=== PATIENT | female | born 1970 | race Caucasian/White ===

== ENCOUNTER → 2018-07-21 13:28 | Outpatient (CLI) | payer SELFPAY ==
[2018-07-21 14:10] VITALS: BP 116/68; PULSE 80; RESP 16; TEMP 37.4; O2SAT 99; BMI 24.0
[2018-07-21 14:55] LABS: Absolute Neutrophil Count 5.7 X10^3/uL (2.0-7.7); Basophil# 0.05 X10^3/uL; Basophil% 0.6 % (0-1); Eosinophil# 0.11 X10^3/uL; Eosinophils% 1.4 % (0-5); Hematocrit 29.3 % (37-47); Hemoglobin 9.4 g/dl (12.0-15.0); Lymphocyte % 18.8 % (19-41); Mean Corp Hgb Conc 32.1 g/gl (32-36); Mean Corpuscular Volume 99.7 fL (81-99); Mean Platelet Vol. 8.6 fl (6.2-12.0); Monocyte% 7.5 % (0-10); Neutrophil # 5.73 X10^3/uL (2.7-7.7); Neutrophil % 71.6 % (47-70); POSITIVE COUNT NO; POSITIVE DIFFERENTIAL NO; POSITIVE MORPHOLOGY NO; Platelet Count 404 K/mm3 (150-450); RBC Distribution Width CV 12.7 % (11.6-14.6); RBC Distribution Width SD 44.2 fl (35.1-43.9); Red Blood Count 2.94 M/mm3 (4.2-5.4)
[2018-07-21 15:11] LABS: ALB/GLOB Ratio 0.6 RATIO (0.9-2.4); AST(SGOT) 11 U/L (15-37); Alanine Aminotransfer ALT/SGPT 12 U/L (13-56); Albumin, Serum 2.4 g/dL (3.2-5.0); Alkaline Phosphatase 71 U/L (45-117); Anion Gap 4 (5-15); BUN 3 mg/dL (7-18); BUN/Creat Ratio 5.3 RATIO (10-20); Calcium,Total 7.7 mg/dL (8.5-10.1); Chloride 109 mmol/L (98-107); Creatinine, Serum 0.57 mg/dL (0.55-1.02); EST Glomerular Filtration Rate 120 mL/min (>60); Est Glom Filt Rate - Afr Amer 145 mL/min (>60); Globulin 4.1 g/dL (2.2-4.2); Glucose 109 mg/dL (74-106); Protein, Total 6.5 g/dL (6.4-8.2); Sodium Level 144 mmol/L (136-145)
--- OUTSIDE RECORDS SUMMARY | 2018-09-15 18:22 | XMS RPT_ITS ---
:1970 Author Organization OHIP Support Name Relationship Address Phone NILDA MARINOT Unavailable [address] [place] [address] + [place] [address] BROWN, DINAH Unavailable Unavailable + D Unavailable Unavailable Unavailable BARKES, MARS Unavailable [address] [place] [address] + [place] [address] BROWN, DINAH Unavailable Unavailable + D Unavailable Unavailable Unavailable BARKES, MARS Unavailable [address] [place] [address] + [place] [address] BROWN, DNIAH Unavailable Unavailable + D Unavailable Unavailable Unavailable BARKES, MARS Unavailable [address] + [place] [address] BROWN, DINAH Unavailable Unavailable + D Unavailable Unavailable Unavailable BARKES, MARS Unavailable [address] + [place] [address] BROWN, DINAH Unavailable Unavailable + D Unavailable Unavailable Unavailable BARKES, MARS Unavailable [address] [facility] + [place] [address] BROWN, DINAH Unavailable Unavailable + D Unavailable Unavailable Unavailable Barkes, Mars Unavailable Unavailable + Brown, Dinah Unavailable Unavailable + Barkes, Mars Unavailable Unavailable + Brown, Dinah Unavailable Unavailable + BARKES, MARS Unavailable [address] + [place] [address] BROWN, DINAH Unavailable Unavailable + D Unavailable Unavailable Unavailable BARKES, MARS Unavailable [address] [place] [address] ST + [place] [address] BROWN, DINAH Unavailable Unavailable + D Unavailable Unavailable Unavailable BARKES, MARS Unavailable [address] [address] [address] [address] + [place] [address] BROWN, DINAH Unavailable Unavailable + D Unavailable Unavailable Unavailable BARKES, MARS Unavailable [address] + [place] [address] BROWN, DINAH Unavailable Unavailable + D Unavailable Unavailable Unavailable BARKES, MARS Unavailable [address] + [place] [address] BROWN, DINAH Unavailable Unavailable + D Unavailable Unavailable Unavailable BARKES, MARS Unavailable [address] + [place] [address] BROWN, DINAH Unavailable Unavailable + D Unavailable Unavailable Unavailable Barkes, Mars Unavailable Unavailable + Brown, Dinah Unavailable Unavailable + BARKES, MARS Unavailable [address] + [place] [address] BROWN, DINAH Unavailable Unavailable + D Unavailable Unavailable Unavailable BARKES, MARS Unavailable [address] + [place] [address] BROWN, DINAH Unavailable Unavailable + D Unavailable Unavailable Unavailable BARKES, MARS Unavailable [address] + [place] [address] BROWN, DINAH Unavailable Unavailable + D Unavailable Unavailable Unavailable Barkes, Mars Unavailable Unavailable + Brown, Dinah Unavailable Unavailable + BARKES, MARS Unavailable [address] + [place] [address] BROWN, DINAH Unavailable Unavailable + D Unavailable Unavailable Unavailable BARKES, MARS Unavailable [address] + [place] [address] BROWN, DINAH Unavailable Unavailable + D Unavailable Unavailable Unavailable BARKES, MARS Unavailable Unavailable + IRENA DINAH Unavailable Unavailable + D Unavailable Unavailable Unavailable BARKES, MARS Unavailable Unavailable + IRENA DINAH Unavailable Unavailable + D Unavailable Unavailable Unavailable BARKES, MARS Unavailable Unavailable + IRENA DINAH Unavailable Unavailable + UE Unavailable Unavailable Unavailable Barkes, Mars Unavailable Unavailable + Irena Dinah Unavailable Unavailable + Barkes, Mars Unavailable Unavailable + Irena Dinah Unavailable Unavailable + BARKES, LANCE Unavailable [address] + [place], [place] [id number] BARKES, MARS Unavailable Unavailable Unavailable NOT GIVEN Unavailable Unavailable Unavailable BARKES, LANCE Unavailable [address] + [place], [place] [id number] BARKES, MARS Unavailable Unavailable Unavailable NOT GIVEN Unavailable Unavailable Unavailable Care Team Providers Name Role Phone KATIA TAMEZ Consulting Unavailable TETYUK, PENELOPE Admitting Unavailable TETYUK, PENELOPE Attending Unavailable NICK MONTENEGRO Consulting Unavailable Jonh Esparza Attending Unavailable PROVIDER, UNKNOWN Referring Unavailable MICHELINE LANGSTON Primary Care Unavailable PROVIDER, UNKNOWN Referring Unavailable MICHELINE LANGSTON Primary Care Unavailable Jonh Esparza Attending Unavailable Jonh Esparza Attending Unavailable PROVIDER, UNKNOWN Referring Unavailable MICHELINE LANGSTON Primary Care Unavailable PROVIDER, UNKNOWN Referring Unavailable MICHELINE LANGSTON Primary Care Unavailable Jonh Esparza Attending Unavailable PROVIDER, UNKNOWN Referring Unavailable No, PCP Primary Care Unavailable Sallie Aggarwal Attending Unavailable Dena Moore Attending Unavailable PROVIDER, UNKNOWN Referring Unavailable MICHELINE LANGSTON Primary Care Unavailable Mandapat, Daya Referring Unavailable JOSE ALBERTO PENA Attending Unavailable Primay Care Physicia, No Primary Care Unavailable Mandapat, Daya Attending Unavailable Mandapat, Daya Referring Unavailable Primay Care Physicia, No Primary Care Unavailable Mandapat, Daya Attending Unavailable Mandapat, Daya Referring Unavailable Primay Care Physicia, No Primary Care Unavailable Mandapat, Daya Attending Unavailable Mandapat, Daya Referring Unavailable Primay Care Physicia, No Primary Care Unavailable Mandapat, Daya Attending Unavailable Mandapat, Daya Referring Unavailable Primay Care Physicia, No Primary Care Unavailable Mandapat, Daya Attending Unavailable Primay Care Physicia, No Primary Care Unavailable Mandapat, Daya Attending Unavailable Primay Care Physicia, No Primary Care Unavailable Mandapat, Daya Attending Unavailable Mandapat, Daya Referring Unavailable Primay Care Physicia, No Primary Care Unavailable Mandapat, Daya Attending Unavailable Mandapat, Adya Referring Unavailable Primay Care Physicia, No Primary Care Unavailable Mandapat, Daya Attending Unavailable Mandapat, Daya Referring Unavailable Primay Care Physicia, No Primary Care Unavailable Mandapat, Daya Attending Unavailable Mandapat, Daya Referring Unavailable Primay Care Physicia, No Primary Care Unavailable Mandapat, Daya Attending Unavailable Mandapat, Daya Referring Unavailable Primay Care Physicia, No Primary Care Unavailable Mandapat, Daya Attending Unavailable Mandapat, Daya Referring Unavailable Primay Care Physicia, No Primary Care Unavailable Mandapat, Daya Attending Unavailable Mandapat, Daya Referring Unavailable Primay Care Physicia, No Primary Care Unavailable Mandapat, Daya Attending Unavailable Mandapat, Daya Referring Unavailable Primay Care Physicia, No Primary Care Unavailable Mandapat, Daya Attending Unavailable Mandapat, Daya Referring Unavailable Primay Care Physicia, No Primary Care Unavailable Mandapat, Daya Attending Unavailable Mandapat, Daya Referring Unavailable Primay Care Physicia, No Primary Care Unavailable Mandapat, Daya Attending Unavailable Mandapat, Daya Referring Unavailable Primay Care Physicia, No Primary Care Unavailable Mandapat, Daya Attending Unavailable Mandapat, Daya Referring Unavailable Primay Care Physicia, No Primary Care Unavailable Mandapat, Daya Attending Unavailable Mandapat, Daya Referring Unavailable Primay Care Physicia, No Primary Care Unavailable MOR DOUGLASS DO Admitting Unavailable MOR DOUGLASS DO Attending Unavailable MOR DOUGLASS DO Primary Care Unavailable MARLO LANG MD Consulting Unavailable MARLO LANG MD Referring Unavailable PROVIDER, UNKNOWN Consulting Unavailable MARLO LANG MD Referring Unavailable MARLO LANG MD Consulting Unavailable DOROTEO TABOR Primary Care Unavailable DOROTEO TABOR Attending Unavailable DOROTEO TABOR Admitting Unavailable PROVIDER, UNKNOWN Consulting Unavailable Jan MCGOWAN Consulting Unavailable PENELOPE PERSAUD Admitting Unavailable PENELOPE PERSAUD Attending Unavailable NICK MONTENEGRO Consulting Unavailable PROBLEMS PROBLEMS DATE TYPE CONDITION / CODE ATTENDING STATUS SOURCE 07/26/2018 Admitting Encntr for f/u exam Vilma, Active [facility] aft trtmt for cond [facility] oth than malig Repository neoplm / Z09(ICD-10) 07/26/2018 Admitting [facility], Active [facility] both small and lg [facility] int w oth Repository complication / K50.818(ICD-10) 07/26/2018 Admitting Candidiasis [facility], [facility] Diagnosis and vagina / [facility] B37.3(ICD-10) Repository 07/02/2018 Admitting Peritoneal abscess / [facility] K65.1(ICD-10) [facility] Repository 07/02/2018 Admitting Crohn's disease, [facility] Diagnosis unspecified, with [facility] abscess / Repository K50.914(ICD-10) 07/02/2018 Admitting Unspecified severe [facility] protein-calorie [facility] malnutrition / Repository E43(ICD-10) 07/02/2018 Admitting Complex regional 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 I, [facility] unspecified / Repository G90.50(ICD-10) 07/02/2018 Admitting Urinary tract [facility] Diagnosis infection, site not [facility] specified / Repository N39.0(ICD-10) 07/02/2018 Admitting Personal history of [facility] nicotine dependence [facility] / Z87.891(ICD-10) Repository 07/02/2018 Admitting Fibromyalgia / Oscar, Active [facility] Diagnosis M79.7(ICD-10) [facility] Repository 07/02/2018 Admitting Hypothyroidism, Oscar, [facility] Diagnosis unspecified / [facility] E03.9(ICD-10) Repository 07/02/2018 Admitting Presence of coronary [facility] Diagnosis angioplasty implant [facility] and graft / Repository Z95.5(ICD-10) 07/02/2018 Admitting Athscl heart disease Oscar, [facility]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 Repository / I25.10(ICD-10) 07/02/2018 Admitting Body mass index Oscar, [facility] (BMI) 24.0-24.9, [facility] adult / Repository Z68.24(ICD-10) 07/02/2018 Admitting Abnormal weight loss Oscar, [facility] / R63.4(ICD-10) [facility] Repository 07/02/2018 Admitting Elevated white blood Oscar, [facility] Diagnosis cell count, [facility] unspecified / Repository D72.829(ICD-10) 07/02/2018 Admitting Hypokalemia / Oscar, [facility] E87.6(ICD-10) [facility] Repository 07/02/2018 Admitting Hypomagnesemia / [facility] Diagnosis E83.42(ICD-10) [facility] Repository 07/02/2018 Admitting Anemia, unspecified [facility] Diagnosis / D64.9(ICD-10) [facility] Repository 07/01/2018 Active Unknown / [place], Active [place] UNK(Unknown) [facility] Other [place] Repository 05/08/2018 Admitting Unknown / NA Active [facility] diagnosis UNK(Unknown) Hospital Repository 12/28/2017 Admitting Vomiting, OMLEY, 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 unspecified / DO [facility] R1110(ICD-10) Hospital Repository 12/28/2017 Principle Noninfective OMLEY, 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 gastroenteritis and [facility] colitis, unspecified Hospital / K529(ICD-10) Repository 12/28/2017 Secondary Crohn's disease, OMLEY, 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 unspecified, without [facility] complications / Hospital K5090(ICD-10) Repository 12/28/2017 Secondary Atherosclerotic OMLEY, 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[facility] [place] 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 Repository angina pectoris / I2510(ICD-10) 12/28/2017 Secondary Presence of coronary OMLEY, 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 angioplasty implant [facility] and graft / Hospital Z955(ICD-10) Repository PROCEDURES PROCEDURES No Procedure Records FoundRESULTS RESULTS CT ABDOMEN/PELVIS W/ Observed: 08/04/2018 Status: F Source: [employer] CONTRAST 1:01 PM SYSTEM REPOSITORY Patient Name: DAHLIA MARINO CT Exam Date/Time 08/04/2018 12:09:[address] Abdomen/Pelvis w/ IV Contrast (IV Onl Ordering Physician MD MEDRANO DIANA Accession Number [id number] CPT4 Codes 18827 (CT Abdomen/Pelvis w/ IV Contrast (IV Onl), Q9967 (CT ISOVUE 370MG/[id number]) Reason For Exam RLQ phlegmon vs abscess Report EXAM: CT Abdomen and pelvis INDICATION: Right lower quadrant phlegmon versus abscess. COMPARISON: 07/02/2018 TECHNIQUE: CT of the abdomen and pelvis was performed with contrast (75 mL of Isovue 370 was injected intravenously). Coronal and sagittal reformats were obtained. FINDINGS: LOWER CHEST: within normal limits. ABDOMEN: LIVER: Scattered subcentimeter hypoattenuated lesions throughout both lobes of liver, too small to characterize. BILE DUCTS: normal caliber. GALLBLADDER: Cholecystectomy. PANCREAS: within normal limits. SPLEEN: within normal limits. ADRENALS: within normal limits. KIDNEYS: within normal limits. PELVIS: REPRODUCTIVE ORGANS: Status post hysterectomy. Similar appearance of the left adnexa cystic lesion measuring 1.6 cm, unchanged from the prior exam from 07/02/2018. URETERS: within normal limits. BLADDER: within normal limits. BOWEL: Normal caliber. There is predominantly liquid contents of the large bowel, consistent with diarrhea. Postsurgical changes of appendectomy. There are anastomotic sutures in the right lower quadrant consistent with an enteroenterostomy. PERITONEUM: Again noted is a complex multiloculated rim-enhancing fluid collection, measuring approximately 4.5 x 4.4 x 4.1 cm with surrounding infiltration of the mesenteric fat. Overall appearance is not simply changed from prior exam from 07/02/2018. There are multiple prominent, but nonenlarged mesenteric lymph nodes in the right lower quadrant. Trace free fluid noted in the right paracolic gutter. No pneumoperitoneum. VESSELS: Within normal limits. LYMPH NODES: No enlarged nodes. RETROPERITONEUM: within normal limits. ABDOMINAL WALL: within normal limits. BONES: within normal limits. IMPRESSION: 1. Complex multiloculated fluid collection in the right lower quadrant with surrounding inflammatory changes and prominent right lower quadrant mesenteric lymph nodes. Overall appearance is unchanged from the prior exam from 07/02/2018. 2. Predominantly liquid content of the large bowel, consistent with diarrhea. 3. Left adnexal cystic lesion noted measuring up to 1.6 cm, unchanged from prior exams, and may represent a parapelvic cyst. Report Dictated on Final Dictated: 08/04/2018 1:01 pm Dictating Physician: MD KNOWLES KEVIN Signed Date and Time: 08/04/2018 1:10 pm Signed by: MD KNOWLES KEVIN Transcribed Date and Time: 08/04/2018 1:01 BASIC METABOLIC PANEL Collected: 08/04/2018 Status: F Source: [facility] 9:09 AM SYSTEM REPOSITORY TYPE CODE TESTS RESULT OUT OF RANGE REFERENCE UNITS LAB NA3 135-145 mmol/L Normal Sodium 144 Result Comment: NOTE: New Sodium Reference Range effective 2018 @ 10:00 LAB K3 3.5-5.1 mmol/L Normal Potassium 3.6 LAB CL3 98-107 mmol/L Normal Chloride 106 LAB CO23 22-30 mmol/L Normal Carbon Dioxide 27 LAB ANIN3 NA Anion Gap 11 LAB GLUC3 70-100 mg/dL Normal Glucose 77 LAB BUN3 7-20 mg/dL Low Urea Nitrogen 5 LAB CRET3 0.52-1.25 mg/dL Normal Creatinine 0.53 LAB GF3BR >60 mL/min eGFR > 60.0 LAB GF3WR >60 mL/min eGFR OTHER > 60.0 Result Comment: Source- MDRD equation with creatinine calibration to IDMS(NKDEP) eGFR not recommended for drug dose adjustment LAB CA3 8.4-10.4 mg/dL Normal Calcium 8.8 Performed By: #### BMP3 #### [facility] [address] [place] [id number] CBC W/DIFF, AUTOMATED Collected: 08/03/2018 Status: F Source: [place] 2:13 PM [facility] REPOSITORY TYPE CODE TESTS RESULT OUT OF RANGE REFERENCE UNITS LAB L100.1000 4.4-11.0 K/mm3 Normal WBC 8.1 LAB L100.1200 4.2-5.4 M/mm3 Low RBC 3.14 LAB L100.1300 12.0-15.0 g/dl Low HGB 9.6 LAB L100.1400 37-47 % Low HCT 29.9 LAB L100.1500 81-99 fL Normal MCV 95.2 LAB L100.1600 27.0-32.0 pg Normal MCH 30.6 LAB L100.1700 32-36 g/gl Normal MCHC 32.1 LAB L100.1810 11.6-14.6 % Normal RDW CV 13.3 LAB L100.1820 35.1-43.9 fl High RDW SD 46.1 LAB L100.1900 150-450 K/mm3 Normal PLT 371 LAB L100.2000 6.2-12.0 fl Normal MPV 8.3 LAB L100.2100 47-70 % Normal NEUT% 66.8 LAB L100.2200 19-41 % Normal LY% 23.8 LAB L100.2300 0-10 % Normal MONO% 7.3 LAB L100.2400 0-5 % Normal EO% 1.5 LAB L100.2500 0-1 % Normal BASO% 0.5 LAB L100.2550 0.0-0.9 % Normal IM GRAN % 0.100 Result Comment: IG% - Immature Granulocytes (promyelocytes, myelocytes and metamyelocytes) > 1% indicates that a LEFT SHIFT is Present. LAB L100.2620 2.0-7.7 X10 3/uL Normal Absolute Neut 5.4 LAB L100.2720 0.83-4.51 X10 3/ul Normal Absolute Lymph 1.92 Performed By: #### L100.0100 #### [facility] [address] [place], [address] COMPREHENSIVE METABOLIC Collected: 08/03/2018 Status: F Source: [facility] 2:13 PM [facility] REPOSITORY TYPE CODE TESTS RESULT OUT OF RANGE REFERENCE UNITS LAB L501.0100 74-106 mg/dL Normal GLU 101 Result Comment: Fasting Glucose result from 100 to 125 mg/dL suggests IMPAIRED HOMEOSTASIS per A.D.A. criteria. Please note revised GLUCOSE reference range effective 2017. LAB L501.1000 7-18 mg/dL Low BUN 5 LAB L501.1100 0.55-1.02 mg/dL Low CREAT,SERUM 0.47 Result Comment: The validity of the calculated GFR AND GFRAA in patients over 70 years has not been determined. Clinical correlation is essential. LAB L501.1110 >60 mL/min Normal EST GFR 150 Result Comment: Non- GFR Calc LAB L501.1115 >60 mL/min Normal EST GFR - AA 182 Result Comment: GFR Calc LAB L501.1255 ml/min Normal Estimated CRCL 125.03 LAB L501.1300 10-20 RATIO BUN/CRE Normal 10.7 LAB L501.1500 6.4-8. g/dL 2 T PROT Normal 7.0 LAB L501.1800 3.2-5. g/dL Low 0 ALB 2.6 LAB L501.1950 2.2-4. g/dL High 2 GLOB 4.4 LAB L501.2000 0.9-2. RATIO Low 4 A/G 0.6 LAB L501.2200 8.5-10 mg/dL Low .1 CA 8.2 LAB L501.4100 15-37 U/L Low AST 7 LAB L501.4305 45-117 U/L ALK P Normal 78 LAB L501.4405 13-56 U/L Low ALT 10 LAB L501.4600 0.20-1 mg/dL .00 T BILI Normal 0.20 LAB L501.5300 136-14 mmol/L High 5 NA 146 LAB L501.5600 3.5-5. mmol/L Low 1 K alert 2.7 Result Comment: Critical Result(s) Called ALEXEI at: 15:18:56 08/03/2018 by: JOMAR JACKSON LAB L501.5900 98-107 mmol/L High CL 109 LAB L501.6100 21.0-32.0 mmol/L Normal CO2 28.0 LAB L501.6200 5-15 Normal 9 GAP Performed By: #### L500.4050 #### [facility] [address] [place], [place], [address] CBC W/DIFF, AUTOMATED Collected: 07/27/2018 Status: F Source: [place] 2:06 PM [facility] REPOSITORY TYPE CODE TESTS RESULT OUT OF RANGE REFERENCE UNITS LAB L100.1000 4.4-11.0 K/mm3 Normal WBC 8.1 LAB L100.1200 4.2-5.4 M/mm3 Low RBC 3.17 LAB L100.1300 12.0-15.0 g/dl Low HGB 9.7 LAB L100.1400 37-47 % Low HCT 30.4 LAB L100.1500 81-99 fL Normal MCV 95.9 LAB L100.1600 27.0-32.0 pg Normal MCH 30.6 LAB L100.1700 32-36 g/gl Low MCHC 31.9 LAB L100.1810 11.6-14.6 % Normal RDW CV 13.1 LAB L100.1820 35.1-43.9 fl High RDW SD 46.2 LAB L100.1900 150-450 K/mm3 Normal PLT 381 LAB L100.2000 6.2-12.0 fl Normal MPV 8.2 LAB L100.2100 47-70 % Normal NEUT% 65.6 LAB L100.2200 19-41 % Normal LY% 23.4 LAB L100.2300 0-10 % Normal MONO% 8.6 LAB L100.2400 0-5 % Normal EO% 1.9 LAB L100.2500 0-1 % Normal BASO% 0.4 LAB L100.2550 0.0-0.9 % Normal IM GRAN % 0.100 Result Comment: IG% - Immature Granulocytes (promyelocytes, myelocytes and metamyelocytes) > 1% indicates that a LEFT SHIFT is Present. LAB L100.2620 2.0-7.7 X10 3/uL Normal Absolute Neut 5.3 LAB L100.2720 0.83-4.51 X10 3/ul Normal Absolute Lymph 1.89 Performed By: #### L100.0100 #### [facility] [address] [place], [place], [address] COMPREHENSIVE METABOLIC Collected: 07/27/2018 Status: F Source: [facility] 2:06 PM [facility] REPOSITORY TYPE CODE TESTS RESULT OUT OF RANGE REFERENCE UNITS LAB L501.0100 74-106 mg/dL Normal GLU 83 Result Comment: Please note revised GLUCOSE reference range effective 2017. LAB L501.1000 7-18 mg/dL Low BUN 5 LAB L501.1100 0.55-1.02 mg/dL Low CREAT,SERUM 0.50 Result Comment: The validity of the calculated GFR AND GFRAA in patients over 70 years has not been determined. Clinical correlation is essential. LAB L501.1110 >60 mL/min Normal EST GFR 138 Result Comment: Non- GFR Calc LAB L501.1115 >60 mL/min Normal EST GFR - AA 167 Result Comment: GFR Calc LAB L501.1255 ml/min Normal Estimated CRCL 117.53 LAB L501.1300 10-20 RATIO Low BUN/CRE 9.9 LAB L501.1500 6.4-8. g/dL 2 T PROT Normal 7.3 LAB L501.1800 3.2-5. g/dL Low 0 ALB 2.8 LAB L501.1950 2.2-4. g/dL High 2 GLOB 4.5 LAB L501.2000 0.9-2. RATIO Low 4 A/G 0.6 LAB L501.2200 8.5-10 mg/dL Low .1 CA 8.4 LAB L501.4100 15-37 U/L Low AST 10 LAB L501.4305 45-117 U/L ALK P Normal 79 LAB L501.4405 13-56 U/L Low ALT 11 LAB L501.4600 0.20-1 mg/dL .00 T BILI Normal 0.20 LAB L501.5300 136-14 mmol/L 5 NA Normal 144 LAB L501.5600 3.5-5. mmol/L Low 1 K 2.9 LAB L501.5900 98-107 mmol/L High CL 108 LAB L501.6100 21.0-3 mmol/L 2.0 CO2 Normal 29.0 LAB L501.6200 5-15 GAP Normal 7 Performed By: #### L500.4050 #### [facility] [address] [place], [address] CBC W/DIFF, AUTOMATED Collected: 07/21/2018 Status: F Source: [place] 2:35 PM [facility] REPOSITORY TYPE CODE TESTS RESULT OUT OF RANGE REFERENCE UNITS LAB L100.1000 4.4-11.0 K/mm3 Normal WBC 8.0 LAB L100.1200 4.2-5.4 M/mm3 Low RBC 2.94 LAB L100.1300 12.0-15.0 g/dl Low HGB 9.4 LAB L100.1400 37-47 % Low HCT 29.3 LAB L100.1500 81-99 fL High MCV 99.7 LAB L100.1600 27.0-32.0 pg Normal MCH 32.0 LAB L100.1700 32-36 g/gl Normal MCHC 32.1 LAB L100.1810 11.6-14.6 % Normal RDW CV 12.7 LAB L100.1820 35.1-43.9 fl High RDW SD 44.2 LAB L100.1900 150-450 K/mm3 Normal PLT 404 LAB L100.2000 6.2-12.0 fl Normal MPV 8.6 LAB L100.2100 47-70 % High NEUT% 71.6 LAB L100.2200 19-41 % Low LY% 18.8 LAB L100.2300 0-10 % Normal MONO% 7.5 LAB L100.2400 0-5 % Normal EO% 1.4 LAB L100.2500 0-1 % Normal BASO% 0.6 LAB L100.2550 0.0-0.9 % Normal IM GRAN % 0.100 Result Comment: IG% - Immature Granulocytes (promyelocytes, myelocytes and metamyelocytes) > 1% indicates that a LEFT SHIFT is Present. LAB L100.2620 2.0-7.7 X10 3/uL Normal Absolute Neut 5.7 LAB L100.2720 0.83-4.51 X10 3/ul Normal Absolute Lymph 1.50 Performed By: #### L100.0100 #### [facility] [address] [place], [place], [id number] COMPREHENSIVE METABOLIC Collected: 07/21/2018 Status: F Source: [facility] 2:35 PM [facility] REPOSITORY TYPE CODE TESTS RESULT OUT OF RANGE REFERENCE UNITS LAB L501.0100 74-106 mg/dL High GLU 109 Result Comment: Fasting Glucose result from 100 to 125 mg/dL suggests IMPAIRED HOMEOSTASIS per A.D.A. criteria. Please note revised GLUCOSE reference range effective 2017. LAB L501.1000 7-18 mg/dL Low BUN 3 LAB L501.1100 0.55-1.02 mg/dL Normal CREAT,SERUM 0.57 Result Comment: The validity of the calculated GFR AND GFRAA in patients over 70 years has not been determined. Clinical correlation is essential. LAB L501.1110 >60 mL/min Normal EST GFR 120 Result Comment: Non- GFR Calc LAB L501.1115 >60 mL/min Normal EST GFR - AA 145 Result Comment: GFR Calc LAB L501.1255 ml/min Normal Estimated CRCL 103.10 LAB L501.1300 10-20 RATIO Low BUN/CRE 5.3 LAB L501.1500 6.4-8. g/dL 2 T PROT Normal 6.5 LAB L501.1800 3.2-5. g/dL Low 0 ALB 2.4 LAB L501.1950 2.2-4. g/dL 2 GLOB Normal 4.1 LAB L501.2000 0.9-2. RATIO Low 4 A/G 0.6 LAB L501.2200 8.5-10 mg/dL Low .1 CA 7.7 LAB L501.4100 15-37 U/L Low AST 11 LAB L501.4305 45-117 U/L ALK P Normal 71 LAB L501.4405 13-56 U/L Low ALT 12 LAB L501.4600 0.20-1 mg/dL .00 T BILI Normal 0.20 LAB L501.5300 136-14 mmol/L 5 NA Normal 144 LAB L501.5600 3.5-5. mmol/L Low 1 K 3.0 LAB L501.5900 98-107 mmol/L High CL 109 LAB L501.6100 21.0-3 mmol/L 2.0 CO2 Normal 31.0 LAB L501.6200 5-15 Low GAP 4 Performed By: #### L500.4050 #### [facility] [address] [facility] [place], [place], [address] CR CHEST PORTABLE Observed: 07/20/2018 Status: F Source: [employer] 6:44 PM SYSTEM REPOSITORY Patient Name: DAHLIA [facility] Exam Date/Time 07/20/2018 16:55:27 EST Exam CR Chest Portable Ordering Physician DO PINON KATHRYN C Accession Number [id number] CPT4 Codes 90151 () Reason For Exam Line placement Report HISTORY: Line placement Portable AP chest at 1639 hours. FINDINGS: Left arm PICC line with tip in the region of the SVC/right atrial junction. Prior lower neck surgery. No definite infiltrates masses or pleural effusions Report Dictated on Final Dictated: 07/20/2018 6:44 pm Dictating Physician: MD PEDRAZA WILLIAM Signed Date and Time: 07/20/2018 6:45 pm Signed by: MD PEDRAZA WILLIAM Transcribed Date and Time: 07/20/2018 6:44 DISCHARGE SUMMARY Observed: 07/20/2018 Status: F Source: [employer] 1:18 PM SYSTEM REPOSITORY Attestation signed by Kashif Hernandez MD at 07/22/2018 1:47 PM Patient seen and examined 07/20/2018. See my exam & notes regarding the discharge plan on progress note attestation dated 07/20/2018 Pager: [phone] Internal Medicine: Med TeamDischarge Summary and Transition Note Dahlia Marino : 1970 ADMIT DATE: 07/17/2018 DISCHARGE DATE: 07/20/2018 PRIMARY CARE PHYSICIAN: No primary care provider on file. VISIT STATUS: Admission CODE STATUS: Full Code DISCHARGE DIAGNOSES: Active Problems: Right lower quadrant abdominal abscess (HCC) Generalized abdominal pain Abdominal visceral abscess (HCC) RLQ abdominal pain Crohn's disease of both small and large intestine with other complication (HCC) History of Crohn's disease Allergy to multiple antibiotics Resolved Problems: * No resolved hospital problems. * HOSPITAL COURSE: Dahlia Marino is a 47-year-old female with PMHx of Crohn's (bowel resections x8), hypothyroidism, FM. Presented to [facility] ED on 07/17/18 with worsening abdominal pain. Patient was admitted to [facility] ED in 07/10, discharged 07/04/18. During that admission, found to have inflammatory collection/mass in anterior RLQ concerning for abscess. Surgery was consulted and deemed medical management to be appropriate with OP surgery follow up. Pt was discharged with prednisone and abx. Patient completed abx however self discontinued prednisone after discharge stating joint problems. Patient reported she did not recall receiving paperwork for follow up but just found it in her purse, so she did not follow up with either her PCP or GI. At time of admission she reported that she has had continued waxing/waning abd pain since discharge, but that the pain became acutely worse on the evening of 07/14/18 when she felt a popping sensation in her RLQ. In Emergency department, CT was unchanged from previous admission. Patient was tachycardic 110s, febrile >103, WBC 15.3. K 2.9 which was replaced. Van/Zosyn started empirically. Blood culture was negative. Patient was admitted IR, general surgery and GI were consulted. IV antibiotics switched to Zosyn and solumedrol started. Steroids were discontinued by GI . Per IR and general surgery no surgical intervention. Patient was initially NPO, diet was advanced to general diet, tolerated well. Pain was controlled using IV Dilaudid and switched to PO Dilaudid. ID was consulted and recommended IV ertapenem for 2-3 weeks until resolution on imaging. PICC line was placed. Patient was stable and discharged in stable condition with PO Dilaudid 2mg q6 for one week. Plan is to follow up with IMC in one week, plan to order CT of abdomen at this time and assess for discontinuation of antibiotics. Patient instructed to follow up with general surgery for an appointment in two weeks. Spoke with patient, patient would like to continue to follow up with her GI doctor in [place], urged her to set up a follow up appointment soon after discharge. ID placed infusion orders for [facility] in [place] with an appointment to start tomorrow. PROCEDURES: PICC placement CONSULTANTS: Interventional Radiology General Surgery Gastrointestinal Infectious Disease DISCHARGE MEDICATIONS: Dahlia Marino Home Medication Instructions MARLYN:[id number] Printed on:07/20/18 9946 Medication Information calcium-vitamin D (OSCAL) 250-125 MG-UNIT per tablet Take 2 tablets by mouth daily ertapenem (INVANZ) infusion Infuse 1,000 mg intravenously every 24 hours To receive at outpatient infusion center HYDROmorphone (DILAUDID) 2 MG tablet Take 1 tablet by mouth every 6 hours as needed for Pain for up to 7 days.. levothyroxine (SYNTHROID) 100 MCG tablet Take 1 tablet by mouth Daily magnesium chloride (MAG DELAY) 64 MG TBEC extended release tablet Take 1 tablet by mouth daily (with breakfast) potassium chloride (KLOR-CON M) 20 MEQ extended release tablet Take 1 tablet by mouth daily vitamin B-12 (CYANOCOBALAMIN) 100 MCG tablet Take 50 mcg by mouth daily DIET: DIET GENERAL; ACTIVITY: No restriction. SIGNIFICANT DIAGNOSTIC STUDIES: CT 07/17/2018 - Abscess in the right side of the abdomen in the mesentery adjacent to the areas of ileocolic and proximal transverse colon anastomoses appears unchanged. There is not feasible to assess for fistula formation from this exam which does not include oral contrast PENDING RESULTS AT TIME OF DISCHARGE: None COMPLEXITY OF FOLLOW UP: [] Moderate Complexity: follow up within 7-14 calendar days (00157) [x] Severe Complexity: follow up within 7 calendar days (45069) FOLLOW UP TESTING, PENDING RESULTS OR REFERRALS AT TRANSITIONAL CARE VISIT: CT of abdomen after 2-3 weeks of abx [x] Yes [] No RECOMMENDED NEXT STEPS: Please follow up with Dr. Langston at the [facility] at 10am on 07/26/2018. Please follow up with your GI doctor in [place]. Please follow up with Dr. Micheline Barnard of general surgery at [phone] as soon as possible for a follow up appointment in two weeks . DISPOSITION: Home Follow up with Dr. Langston at the [facility] at 10am on 07/26/2018. INSTRUCTIONS TO MA/SW: Please call patient on day after discharge (must document patient contacted within 2 business days of discharge). FOLLOW UP QUESTIONS FOR MA/SW: 1. Did you get medications filled and taking them as instructed from discharge? 2. Are you following your discharge instructions from your hospital stay? 3. Please confirm patient is scheduled for a follow up appointment within the above time frame. TIFERON Collected: 07/20/2018 Status: F Source: [employer] 11:02 AM SYSTEM REPOSITORY TYPE CODE TESTS RESULT OUT OF REFERENCE UNITS RANGE LAB QTF Negative NA Quantiferon Negative Performed By: #### QTF #### [facility] [address] [id number] HEMOGRAM Collected: 07/20/2018 Status: F Source: [employer] 4:25 AM SYSTEM REPOSITORY TYPE CODE TESTS RESULT OUT OF RANGE REFERENCE UNITS LAB IWBC 3.6-10.7 10*3/uL WBC Normal 9.0 LAB RBC 3.80-5.20 10*6/uL Low RBC 3.03 LAB HGB 11.7-16.0 g/dL Low Hemoglobin 9.7 LAB HCT 35.0-47.0 % Low Hematocrit 29.5 LAB MCV 79.0-98.0 fL MCV Normal 97.3 LAB MCH 26.0-34.0 pg MCH Normal 32.0 LAB MCHC 32.0-36.0 % MCHC Normal 32.8 LAB RDW 11.5-14.5 % RDW Normal 13.2 LAB PLT 140-440 10*3/uL Platelet Normal 272 LAB MPV 7.4-10.4 fL MPV Normal 7.6 Performed By: #### HEMOG, BMP3M, MG3, PHOS3 #### [facility] [address] [place] [phone] BASIC METABOLIC PANEL Collected: 07/20/2018 Status: F Source: [employer] 4:25 AM SYSTEM REPOSITORY TYPE CODE TESTS RESULT OUT OF RANGE REFERENCE UNITS LAB NA3 137-145 mmol/L Sodium Normal 139 LAB K3 3.5-5.1 mmol/L Normal Potassium 3.5 LAB CL3 98-107 mmol/L High Chloride 112 LAB CO23 22-30 mmol/L Carbon Normal Dioxide 23 LAB ANIN3 NA Anion Gap 5 LAB GLUC3 70-100 mg/dL Glucose Normal 80 LAB BUN3 7-20 mg/dL Low Urea Nitrogen 4 LAB CRET3 0.52-1.25 mg/dL Low Creatinine 0.51 LAB GF3BR >60 mL/min eGFR > 60.0 LAB GF3WR >60 mL/min eGFR OTHER > 60.0 Result Comment: Source- MDRD equation with creatinine calibration to IDMS(NKDEP) eGFR not recommended for drug dose adjustment LAB CA3 8.4-10.4 mg/dL Low Calcium 7.8 Performed By: #### HEMOG, BMP3M, MG3, PHOS3 #### [facility] [address] [place] [address] MAGNESIUM Collected: 07/20/2018 Status: F Source: [employer] 4:25 AM SYSTEM REPOSITORY TYPE CODE TESTS RESULT OUT OF REFERENCE UNITS RANGE LAB MG3 1.6-2.3 mg/dL Low Magnesium 1.5 Performed By: #### HEMOG, BMP3M, MG3, PHOS3 #### [employer] [address] PHOSPHORUS Collected: 07/20/2018 Status: F Source: [employer] 4:25 AM SYSTEM REPOSITORY TYPE CODE TESTS RESULT OUT OF RANGE REFERENCE UNITS LAB PHOS3 2.5-4.5 mg/dL Normal Phosphorus 4.3 Performed By: #### HEMOG, BMP3M, MG3, PHOS3 #### [facility] [address] [place] [address] Observed: 07/19/2018 Status: F Source: [employer] CLOSTRIDIUM DIFFICILE 10:53 PM SYSTEM REPOSITORY PCR Order Comment: Specimen Source Comment:Stool Clostridium difficile by PCR --> Status: F NEGATIVE Methodology - Real Time PCR (Cepheid) Clinical judgement must be used when interpreting results. Positive results may reflect colonization. Indeterminate results suggest a new specimen be submitted. Methodology - Real Time PCR (Cepheid) Clinical judgement must be used when interpreting results. Positive results may reflect colonization. Indeterminate results suggest a new specimen be submitted. Performed By: #### CDPCR #### [employer] [address] HEMOGRAM Collected: 07/19/2018 Status: F Source: [employer] 5:29 AM SYSTEM REPOSITORY TYPE CODE TESTS RESULT OUT OF RANGE REFERENCE UNITS LAB IWBC 3.6-10.7 10*3/uL WBC Normal 7.9 LAB RBC 3.80-5.20 10*6/uL Low RBC 2.82 LAB HGB 11.7-16.0 g/dL Low Hemoglobin 9.1 LAB HCT 35.0-47.0 % Low Hematocrit 26.7 LAB MCV 79.0-98.0 fL MCV Normal 94.8 LAB MCH 26.0-34.0 pg MCH Normal 32.1 LAB MCHC 32.0-36.0 % MCHC Normal 33.9 LAB RDW 11.5-14.5 % RDW Normal 13.1 LAB PLT 140-440 10*3/uL Platelet Normal 361 LAB MPV 7.4-10.4 fL Low MPV 7.2 Performed By: #### HEMOG, BMP3M, MG3, PHOS3 #### [facility] [address] [place] [phone] BASIC METABOLIC PANEL Collected: 07/19/2018 Status: F Source: [employer] 5:29 AM SYSTEM REPOSITORY TYPE CODE TESTS RESULT OUT OF RANGE REFERENCE UNITS LAB NA3 137-145 mmol/L Sodium Normal 141 LAB K3 3.5-5.1 mmol/L Low Potassium 3.3 LAB CL3 98-107 mmol/L High Chloride 111 LAB CO23 22-30 mmol/L Carbon Normal Dioxide 24 LAB ANIN3 NA Anion Gap 5 LAB GLUC3 70-100 mg/dL Glucose Normal 93 LAB BUN3 7-20 mg/dL Low Urea Nitrogen 6 LAB CRET3 0.52-1.25 mg/dL Normal Creatinine 0.55 LAB GF3BR >60 mL/min eGFR > 60.0 LAB GF3WR >60 mL/min eGFR OTHER > 60.0 Result Comment: Source- MDRD equation with creatinine calibration to IDMS(NKDEP) eGFR not recommended for drug dose adjustment LAB CA3 8.4-10.4 mg/dL Low Calcium 7.7 Performed By: #### HEMOG, BMP3M, MG3, PHOS3 #### [facility] [address] [place] [phone] MAGNESIUM Collected: 07/19/2018 Status: F Source: [employer] 5:29 AM SYSTEM REPOSITORY TYPE CODE TESTS RESULT OUT OF RANGE REFERENCE UNITS LAB MG3 1.6-2.3 mg/dL Normal Magnesium 1.6 Performed By: #### HEMOG, BMP3M, MG3, PHOS3 #### [facility] [address] [phone] PHOSPHORUS Collected: 07/19/2018 Status: F Source: [employer] 5:29 AM SYSTEM REPOSITORY TYPE CODE TESTS RESULT OUT OF RANGE REFERENCE UNITS LAB PHOS3 2.5-4.5 mg/dL Normal Phosphorus 3.4 Performed By: #### HEMOG, BMP3M, MG3, PHOS3 #### [facility] [employer] [address] [phone] HEMOGRAM Collected: 07/18/2018 Status: F Source: [employer] 5:02 AM SYSTEM REPOSITORY TYPE CODE TESTS RESULT OUT OF RANGE REFERENCE UNITS LAB IWBC 3.6-10.7 10*3/uL WBC Normal 10.0 LAB RBC 3.80-5.20 10*6/uL Low RBC 3.13 LAB HGB 11.7-16.0 g/dL Low Hemoglobin 10.1 LAB HCT 35.0-47.0 % Low Hematocrit 29.9 LAB MCV 79.0-98.0 fL MCV Normal 95.4 LAB MCH 26.0-34.0 pg MCH Normal 32.3 LAB MCHC 32.0-36.0 % MCHC Normal 33.9 LAB RDW 11.5-14.5 % RDW Normal 13.0 LAB PLT 140-440 10*3/uL Platelet Normal 413 LAB MPV 7.4-10.4 fL MPV Normal 7.4 Performed By: #### HEMOG, BMP3M, MG3, PHOS3 #### [address] [phone] BASIC METABOLIC PANEL Collected: 07/18/2018 Status: F Source: [employer] 5:02 AM SYSTEM REPOSITORY TYPE CODE TESTS RESULT OUT OF RANGE REFERENCE UNITS LAB NA3 137-145 mmol/L Sodium Normal 143 LAB K3 3.5-5.1 mmol/L Normal Potassium 3.5 LAB CL3 98-107 mmol/L High Chloride 112 LAB CO23 22-30 mmol/L Carbon Normal Dioxide 23 LAB ANIN3 NA Anion Gap 8 LAB GLUC3 70-100 mg/dL Glucose Normal 90 LAB BUN3 7-20 mg/dL Low Urea Nitrogen 5 LAB CRET3 0.52-1.25 mg/dL Normal Creatinine 0.52 LAB GF3BR >60 mL/min eGFR > 60.0 LAB GF3WR >60 mL/min eGFR OTHER > 60.0 Result Comment: Source- MDRD equation with creatinine calibration to IDMS(NKDEP) eGFR not recommended for drug dose adjustment LAB CA3 8.4-10.4 mg/dL Low Calcium 8.1 Performed By: #### HEMOG, BMP3M, MG3, PHOS3 #### [facility] [address] [place] [phone] MAGNESIUM Collected: 07/18/2018 Status: F Source: [employer] 5:02 AM SYSTEM REPOSITORY TYPE CODE TESTS RESULT OUT OF RANGE REFERENCE UNITS LAB MG3 1.6-2.3 mg/dL Normal Magnesium 1.6 Performed By: #### HEMOG, BMP3M, MG3, PHOS3 #### [facility] [address] [place] [phone] PHOSPHORUS Collected: 07/18/2018 Status: F Source: [employer] 5:02 AM SYSTEM REPOSITORY TYPE CODE TESTS RESULT OUT OF RANGE REFERENCE UNITS LAB PHOS3 2.5-4.5 mg/dL Normal Phosphorus 3.5 Performed By: #### HEMOG, BMP3M, MG3, PHOS3 #### [facility] [address] [place] [phone] BASIC METABOLIC PANEL Collected: 07/17/2018 Status: F Source: [employer] 2:00 PM SYSTEM REPOSITORY TYPE CODE TESTS RESULT OUT OF RANGE REFERENCE UNITS LAB NA3 137-145 mmol/L Sodium Normal 141 LAB K3 3.5-5.1 mmol/L Normal Potassium 3.6 LAB CL3 98-107 mmol/L High Chloride 112 LAB CO23 22-30 mmol/L Low Carbon Dioxide 21 LAB ANIN3 NA Anion Gap 7 LAB GLUC3 70-100 mg/dL High Glucose 107 LAB BUN3 7-20 mg/dL Low Urea Nitrogen 4 LAB CRET3 0.52-1.25 mg/dL Normal Creatinine 0.58 LAB GF3BR >60 mL/min eGFR > 60.0 LAB GF3WR >60 mL/min eGFR OTHER > 60.0 Result Comment: Source- MDRD equation with creatinine calibration to IDMS(NKDEP) eGFR not recommended for drug dose adjustment LAB CA3 8.4-10.4 mg/dL Low Calcium 7.5 Performed By: #### BMP3 #### [facility] [address] [place], [place] LACTIC ACID Collected: 07/17/2018 Status: F Source: [employer] 11:25 AM SYSTEM REPOSITORY TYPE CODE TESTS RESULT OUT OF REFERENCE UNITS RANGE LAB LACT3 0.7-2.0 mmol/L Low Lactic Acid < 0.5 Performed By: #### LACT3 #### [facility] [place], [place] Observed: 07/17/2018 Status: F Source: [employer] CULTURE URINE 8:28 AM SYSTEM REPOSITORY Order Comment: Specimen Source Comment:Urine, clean catch CULTURE URINE --> Status: F Normal urogenital elham present. Performed By: #### C/UR #### [facility] [address] [place] [address] CT ABDOMEN/PELVIS W/ Observed: 07/17/2018 Status: F Source: [employer] CONTRAST 5:09 AM SYSTEM REPOSITORY Patient Name: DAHLIA MARINO CT Exam Date/Time 07/17/2018 05:32:[address] Abdomen/Pelvis w/ IV Contrast (IV Onl Ordering Physician MD JAMIR, IRENE Gray Accession Number [id number] CPT4 Codes 38383 (CT Abdomen/Pelvis w/ IV Contrast (IV Onl), Q9967 (CT ISOVUE 370MG/[id number]) Reason For Exam recent abscess due to crohns. finished abx. worsening pain, fever Report Clinical indication: Recent abscess due to Crohn's. Finished antibiotics. Worsening pain and fever. Comparison: 07/02/2018 Contrast: 75 mL Isovue-370 intravenously. No oral contrast was administered. Radiation dose: DLP 364 mGycm Imaging was performed from dome of the diaphragm through ischial tuberosities with axial, coronal and sagittal images reconstructed. Images of the lung bases show no pulmonary infiltrates or pleural effusions. The liver, spleen, pancreas, adrenal glands and kidneys contain no focal masses. Gallbladder appears surgically absent. Common duct measures about 1 cm diameter and appears unchanged. Anastomotic luz are noted in proximal transverse colon and at ileocolic anastomosis. In the mesentery in the vicinity of these two anastomoses there is an inflammatory mass of about 4 - 4.5 cm diameter which has a similar size and appearance to the abscess detected on the previous study. The lack of oral contrast makes evaluation for fistula formation not feasible on this exam. No pneumoperitoneum or ascites is identified. There are no additional areas of mesenteric inflammation. Distal colon is mildly distended with fluid and fecal content. Small bowel loops are nondilated. The general pattern is nonobstructive. Aorta and vena cava are normal in size. No retroperitoneal adenopathy or mass is noted. No free fluid is noted in the pelvis. No pelvic adenopathy is identified. Uterus appears surgically absent. No gross mass is identified within the urinary bladder. No acute interval osseous changes are identified. IMPRESSION: Abscess in the right side of the abdomen in the mesentery adjacent to the areas of ileocolic and proximal transverse colon anastomoses appears unchanged. There is not feasible to assess for fistula formation from this exam which does not include oral contrast. Report Dictated on Workstation: [id number] Final Dictated: 07/17/2018 5:09 am Dictating Physician: MD VENCES DIANE Signed Date and Time: 07/17/2018 5:16 am Signed by: MD VENCES DIANE Transcribed Date and Time: 07/17/2018 5:09 Observed: 07/17/2018 Status: F Source: [employer] CULTURE BLOOD 4:57 AM SYSTEM REPOSITORY Order Comment: Specimen Source Comment:Blood CULTURE BLOOD --> Status: F No growth at 5 days. Performed By: #### C/BLD #### [facility] [address] [place] [phone] Observed: 07/17/2018 Status: F Source: [employer] CULTURE BLOOD (TWO) 4:01 AM SYSTEM REPOSITORY Order Comment: Specimen Source Comment:Blood CULTURE BLOOD (Two) --> Status: F No growth at 5 days. Performed By: #### C/BLT #### [facility] [address] [place] [phone] HEMOGRAM W/ AUTODIFF Collected: 07/17/2018 Status: F Source: [employer] 4:00 AM SYSTEM REPOSITORY TYPE CODE TESTS RESULT OUT OF REFERENCE UNITS RANGE LAB IWBC 3.6-10.7 10*3/uL WBC High 15.3 LAB RBC 3.80-5.20 10*6/uL Low RBC 3.13 LAB HGB 11.7-16.0 g/dL Low Hemoglobin 10.0 LAB HCT 35.0-47.0 % Low Hematocrit 29.6 LAB MCV 79.0-98.0 fL MCV Normal 94.6 LAB MCH 26.0-34.0 pg MCH Normal 32.0 LAB MCHC 32.0-36.0 % MCHC Normal 33.8 LAB RDW 11.5-14.5 % RDW Normal 13.1 LAB PLT 140-440 10*3/uL Platelet Normal 415 LAB MPV 7.4-10.4 fL Low MPV 7.1 LAB GRAN% 40.0-80.0 % Granulocytes High 82.2 LAB LYMP% 20.0-40.0 % Low Lymphocytes 9.1 LAB MONO% 2.0-10.0 % Monocytes Normal 7.9 LAB EOS% 1.0-6.0 % Low Eosinophils 0.3 LAB BAS% 0.0-2.0 % Basophils Normal 0.5 LAB ANC 1.8-7.0 10*3/uL Abs High Neutrophile Cnt 12.6 LAB ALC 1.0-4.3 10*3/uL Abs Lymph Cnt Normal 1.4 LAB AMC 0.0-0.8 10*3/uL Abs Monocyte High Cnt 1.2 LAB AEC 0.0-0.5 10*3/uL Abs Eosin Cnt Normal 0.0 LAB ABC 0.0-0.2 10*3/uL Abs Baso Cnt Normal 0.1 Performed By: #### HEMDF, LACT3, LIPA4, LFT3, BMP3, CRP2, ESR, PCAL #### [facility] [address] [place] [phone] LACTIC ACID Collected: 07/17/2018 Status: F Source: [employer] 4:00 AM SYSTEM REPOSITORY TYPE CODE TESTS RESULT OUT OF RANGE REFERENCE UNITS LAB LACT3 0.7-2.0 mmol/L Normal Lactic Acid 1.2 Performed By: #### HEMDF, LACT3, LIPA4, LFT3, BMP3, CRP2, ESR, PCAL #### [facility] [address] [place] [phone] LIPASE Collected: 07/17/2018 Status: F Source: [employer] 4:00 AM SYSTEM REPOSITORY TYPE CODE TESTS RESULT OUT OF RANGE REFERENCE UNITS LAB LIPA4 23-300 U/L Normal Lipase 38 Performed By: #### HEMDF, LACT3, LIPA4, LFT3, BMP3, CRP2, ESR, PCAL #### [facility] [address] [place] [phone] HEPATIC FUNCTION Collected: 07/17/2018 Status: F Source: [employer] 4:00 AM SYSTEM REPOSITORY TYPE CODE TESTS RESULT OUT OF RANGE REFERENCE UNITS LAB ALB3 3.5-5.0 g/dL Low Albumin, Serum 3.4 LAB TP3 6.3-8.2 g/dL Total Normal Protein 6.6 LAB BILT3 0.2-1.3 mg/dL Normal Bilirubin,Total 0.2 LAB BILD3 0.0-0.3 mg/dL Normal Bilirubin,Direct 0.0 LAB ALKP3 38-126 U/L Alkaline Normal Phosphatase 83 LAB ALT3 13-69 U/L ALT (SGPT) Normal 27 LAB AST3 15-46 U/L Low AST (SGOT) 11 Performed By: #### HEMDF, LACT3, LIPA4, LFT3, BMP3, CRP2, ESR, PCAL #### [facility] [address] [place] [phone] BASIC METABOLIC PANEL Collected: 07/17/2018 Status: F Source: [employer] 4:00 AM SYSTEM REPOSITORY TYPE CODE TESTS RESULT OUT OF RANGE REFERENCE UNITS LAB NA3 137-145 mmol/L Low Sodium 135 LAB K3 3.5-5.1 mmol/L Low Potassium 2.9 LAB CL3 98-107 mmol/L Chloride Normal 103 LAB CO23 22-30 mmol/L Carbon Normal Dioxide 23 LAB ANIN3 NA Anion Gap 8 LAB GLUC3 70-100 mg/dL Glucose Normal 97 LAB BUN3 7-20 mg/dL Low Urea Nitrogen 5 LAB CRET3 0.52-1.25 mg/dL Normal Creatinine 0.63 LAB GF3BR >60 mL/min eGFR > 60.0 LAB GF3WR >60 mL/min eGFR OTHER > 60.0 Result Comment: Source- MDRD equation with creatinine calibration to IDMS(NKDEP) eGFR not recommended for drug dose adjustment LAB CA3 8.4-10.4 mg/dL Low Calcium 8.1 Performed By: #### HEMDF, LACT3, LIPA4, LFT3, BMP3, CRP2, ESR, PCAL #### [facility] [address] [place] [address] C-REACTIVE PROTEIN Collected: 07/17/2018 Status: F Source: [employer] 4:00 AM SYSTEM REPOSITORY TYPE CODE TESTS RESULT OUT OF REFERENCE UNITS RANGE LAB 2CRP 0.0-6.0 mg/L High C-Reactive 11.6 Protein Result Comment: . Performed By: #### HEMDF, LACT3, LIPA4, LFT3, BMP3, CRP2, ESR, PCAL #### [facility] [address] [place] [address] SED RATE Collected: 07/17/2018 Status: F Source: [employer] 4:00 AM SYSTEM REPOSITORY TYPE CODE TESTS RESULT OUT OF RANGE REFERENCE UNITS LAB ESR 0-20 mm/h High Sed Rate 27 Performed By: #### HEMDF, LACT3, LIPA4, LFT3, BMP3, CRP2, ESR, PCAL #### [facility] [address] [place] [address] PROCALCITONIN Collected: 07/17/2018 Status: F Source: [employer] 4:00 AM SYSTEM REPOSITORY TYPE CODE TESTS RESULT OUT OF REFERENCE UNITS RANGE LAB PRO <0.10 ng/mL Procalcitonin Normal < 0.10 LAB INT3 NA Interpretation See Below Result Comment: PCT <0.50 = Low risk of severe sepsis and/or septic shock. PCT >2.00 = High risk of severe sepsis and/or septic shock. Performed By: #### HEMDF, LACT3, LIPA4, LFT3, BMP3, CRP2, ESR, PCAL #### [facility] [address] [place] [address] ED PROVIDER NOTE Observed: 07/17/2018 Status: F Source: [employer] 2:30 AM SYSTEM REPOSITORY [facility] EMERGENCY DEPT eMERGENCY dEPARTMENT eNCOUnter Pt Name: Dahlia Marino Birthdate 1970 Date of evaluation: 07/17/2018 Provider: Irene Marlow MD Chief Complaint: No chief complaint on file. [place]: Dahlia Marino is a 48 y.o. female that presents complaining of abdominal pain. Patient has a complicated history of Crohn's disease with double abscesses, liver resection, small bowel resections. Patient states that she was admitted a couple weeks ago due to a flare of Crohn's involving an abscess. She was taken off of her Humira was on antibiotics in the hospital. She is from [place] but was referred here because the hospital close to their house does not have any surgeons at specialized in her complex history. Patient was given antibiotics. She states she was doing well and took her last dose yesterday. Patient states around 7 PM she felt a popping sensation in her lower abdomen since then has been having severe pain all over the abdomen but worse on the RIGHT side. She states she took her oral Dilaudid and got no relief at all. She has been dry heaving since then. She had a temperature of 101 at home. Does report having vaginal discharge again for which she is being treated for an yeast infection. ROS: General: Has fevers. No weakness. Eyes: No eye discharge. ENT: No sore throat. No nasal congestion. Cardiovascular: No chest pain. No palpitations. Respiratory: No shortness of breath. No cough. Gastrointestinal: Has abdominal pain. Has vomiting. Genitourinary: No dysuria. No hematuria. Has vaginal discharge Musculoskeletal: No muscle pain. No joint pain. Skin: No rash. No abrasions. Neurologic: No headache. No extremity numbness. Psychiatric: No anxiety Past Medical History: Diagnosis Date ? Crohn's colitis (HCC) ? Fibromyalgia ? Hypothyroid ? Liver abscess ? RSD (reflex sympathetic dystrophy) Past Surgical History: Procedure Laterality Date ? APPENDECTOMY ? CORONARY ANGIOPLASTY WITH STENT PLACEMENT ? HYSTERECTOMY ? SMALL INTESTINE SURGERY x8 from Crohns ? THYROIDECTOMY Family History Problem Relation Age of Onset ? Endometrial Cancer Mother ? Crohn's Disease Sister Social History Social History ? Marital status: Unknown Spouse name: N/A ? Number of children: N/A ? 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 Smoking status: Former Smoker Years: 20.00 Types: Cigarettes ? Smokeless tobacco: Current User ? Alcohol use No ? Drug use: No ? Sexual activity: Not on file Other Topics Concern ? Not on file Social History Narrative ? No narrative on file Current Facility-Administered Medications Medication Dose Route Frequency Provider Last Rate Last Dose ? HYDROmorphone (DILAUDID) injection 1 mg 1 mg Intravenous Q15 Min PRN Irene Marlow MD ? ondansetron (ZOFRAN) injection 4 mg 4 mg Intravenous Once Irene Marlow MD ? 0.9 % sodium chloride bolus 1,000 mL Intravenous Once Irene Marlow MD Current Outpatient Prescriptions Medication Sig Dispense Refill ? vitamin B-12 (CYANOCOBALAMIN) 100 MCG tablet Take 50 mcg by mouth daily ? calcium-vitamin D (OSCAL) 250-125 MG-UNIT per tablet Take 2 tablets by mouth daily ? magnesium chloride (MAG DELAY) 64 MG TBEC extended release tablet Take 1 tablet by mouth daily (with breakfast) ? potassium chloride (KLOR-CON M) 20 MEQ extended release tablet Take 1 tablet by mouth daily 60 tablet 3 ? levothyroxine (SYNTHROID) 100 MCG tablet Take 1 tablet by mouth Daily 30 tablet 3 ? predniSONE (DELTASONE) 20 MG tablet Take 2 tablets by mouth daily 60 tablet 0 ? adalimumab (HUMIRA) 40 MG/0.8ML injection Inject 40 mg into the skin once Allergies Allergen Reactions ? Doxycycline ? Erythromycin ? Flagyl [Metronidazole] Nursing Notes Reviewed Physical Exam: There were no vitals taken for this visit. My pulse ox interpretation is ? normal General: Patient is tearful and shivering, seems quite uncomfortable. Psychiatric: Appropriate goal oriented speech. Judgement intact. Eyes: No scleral icterus Ears, nose, mouth and throat: Moist oral mucosa. Neck: Trachea midline. Cardiovascular: Tachycardic rate and regular rhythm, no murmurs. Respiratory: Clear to auscultation bilaterally. No wheezes, crackles. Abdominal: Non-distended. Tender to palpation throughout the abdomen. Back: No CVA tenderness to palpation Skin: Very warm to touch. Dry. No rashes Musculoskeletal: No obvious deformities. No edema. Neurological: Alert and oriented x3. Moving all four extremities I have reviewed and interpreted all of the currently available lab results from this visit (if applicable): No results found for this visit on 07/17/18. Radiographs (if obtained): CT Abdomen Pelvis W Contrast (Results Pending) EKG (if obtained): (All EKG's are interpreted by myself in the absence of a hide tanner) none Chart review shows recent radiographs: Ct Abdomen Pelvis W Contrast Result Date: 07/02/2018 Patient Name: DAHLIA MARINO ---CT--- Exam Date/Time 07/02/2018 07:47:[address] Abdomen/Pelvis w/ IV Contrast (IV Onl Ordering Physician MD IVIS, MPH, MICHELINE Accession Number [id number] CPT4 Codes 73745 (CT Abdomen/Pelvis w/ IV Contrast (IV Onl), Q9967 (CT ISOVUE 370MG/ML&[id number]&ML&1) Reason For Exam Crohns flare, known abscess in RUQ, gas in urine, vaginal discharge, concern for fistula Report CT ABDOMEN AND PELVIS WITH CONTRAST Indication: This is a 47-year-old inpatient who presents with a known right upper quadrant abscess with gas in urine and vaginal discharge with concern for a possible fistula based on clinical findings. The patient has a fever and generalized abdominal pain. The patient has a history of Crohn's. Surgical history includes hysterectomy, appendectomy, and prior bowel partial resection. Scan Parameters: Multiple axial 3mm images were obtained of the abdomen and pelvis following oral contrast with dynamic intravenous infusion of 75 mL of Isovue 370 mg contrast media. Coronal and sagittal reconstructions were reviewed as well. Comparison: No comparison images are provided FINDINGS: Lung base atelectasis is present with tiny bilateral pleural effusions. The osseous structures are intact. The aorta contour is unremarkable. Mild atherosclerotic changes are present. Soft and hard plaque is noted along the distal intra-abdominal aorta. No aneurysmal dilatation. The liver contour is smooth. Small hepatic lesions of decreased attenuation are present, some of which are too small to characterize, possibly representing cysts. The gallbladder is not visualized. The common bile duct is prominent. The pancreas appears unremarkable. The spleen is unremarkable. The adrenal glands are unremarkable. The kidneys symmetrically enhance without hydronephrosis. There is no obstructing ureteral calculus. The bladder contour is unremarkable. Intraluminal contrast is present within the bladder with no air-fluid level and no intraluminal air. On these images a fistula tract is not identified from the bladder. Intraluminal contrast is present throughout the colon and into the distal small bowel without evidence for bowel obstruction. The contrast is present to the level of the rectum. No extraluminal contrast appreciated. Postsurgical sutures are present along the transverse colon in the right mid quadrant. At the anastomosis site there is stranding within the mesentery with a mixed fluid collection compatible with the patient's known abscess measuring 5.0 cm (transverse) by 4.0 cm (sagittal). There is stranding and edema throughout the mesentery. Reactive changes are present in the adjacent bowel loops inferior to this site with wall thickening and poor distention. Reactive lymph nodes are also noted. Per report, the appendix has been surgically removed. The uterus has been surgically removed. Fluid is noted in the pelvic cul-de-sac. IMPRESSION: Findings are compatible with an abscess in the right mid quadrant extending from postsurgical sutures which appear to be at the level of the transverse colon. Loops of bowel inferior to this site demonstrate reactive changes with bowel wall thickening with stranding in the mesentery and reactive lymph nodes. The bladder contour is smooth. Intraluminal contrast is present without locules of air and without an air-fluid level. On imaging, a discrete fistula tract is not identified however this does not exclude a fistula given the clinical presentation. Bilateral atelectasis with tiny pleural effusions. Hysterectomy. Appendectomy. Cholecystectomy. Report Dictated on --- Final --- Dictated: 07/02/2018 8:06 am Dictating Physician: MD CASSIDY JENNIFER R Signed Date and Time: 07/02/2018 8:22 am Signed by: MD CASSIDY JENNIFER R Transcribed Date and Time: 07/02/2018 8:06 MDM: Patient seems very warm and quite uncomfortable. She recently had an abscess. I do think she is another CT scan to evaluate further if she has some other complication. She is tender throughout the abdomen. IV, labwork was obtained. Patient was given IV fluids and pain medication. Patient's temp here was 103. Heart rate was 116. I did start the patient empirically on vancomycin and Zosyn. Patient's entire workup is pending. Signed out to Dr. Mercedes. Clinical Impression: 1. Generalized abdominal pain 2. History of Crohn's disease Disposition referral (if applicable): No follow-up provider specified. Disposition medications (if applicable): New Prescriptions No medications on file Comment: Please note this report has been produced using speech recognition software and may contain errors related to that system including errors in grammar, punctuation, and spelling, as well as words and phrases that may be inappropriate. If there are any questions or concerns please feel free to contact the dictating provider for clarification. Irene Marlow MD MD Irene Espinal MD 07/17/18 0421 ED PROVIDER NOTE Observed: 07/17/2018 Status: F Source: [employer] 2:30 AM SYSTEM REPOSITORY Emergency Department Encounter Location: [facility]PT Patient: Dahlia Marino : 1970 Date of evaluation: 07/17/2018 ED Provider: Bon Mercedes MD Dahlia Marino was checked out to me by Dr. Marlow. Please see his/her initial documentation for details of the patient's initial ED presentation, physical exam and completed studies. I have reviewed and interpreted all of the currently available lab results and diagnostics from this visit: Results for orders placed or performed during the hospital encounter of 07/17/18 Hemogram (CBC) w/Auto Diff Result Value Ref Range WBC 15.3 (H) 3.6 - 10.7 10*3/uL RBC 3.13 (L) 3.80 - 5.20 10*6/uL Hemoglobin 10.0 (L) 11.7 - 16.0 g/dL Hematocrit 29.6 (L) 35.0 - 47.0 % MCV 94.6 79.0 - 98.0 fL MCH 32.0 26.0 - 34.0 pg MCHC 33.8 32.0 - 36.0 % RDW 13.1 11.5 - 14.5 % Platelets 415 140 - 440 10*3/uL MPV 7.1 (L) 7.4 - 10.4 fL Granulocytes % 82.2 (H) 40.0 - 80.0 % Lymphocyte % 9.1 (L) 20.0 - 40.0 % Monocytes 7.9 2.0 - 10.0 % Eosinophils 0.3 (L) 1.0 - 6.0 % Basophils 0.5 0.0 - 2.0 % Absolute Neut # 12.6 (H) 1.8 - 7.0 10*3/uL Absolute Lymph # 1.4 1.0 - 4.3 10*3/uL Absolute Gulf # 1.2 (H) 0.0 - 0.8 10*3/uL Absolute Eos # 0.0 0.0 - 0.5 10*3/uL Absolute Baso # 0.1 0.0 - 0.2 10*3/uL Lipase Result Value Ref Range Lipase 38 23 - 300 U/L Hepatic Function Panel Result Value Ref Range Albumin,Serum 3.4 (L) 3.5 - 5.0 g/dL Total Protein 6.6 6.3 - 8.2 g/dL Total Bilirubin 0.2 0.2 - 1.3 mg/dL Bilirubin, Direct 0.0 0.0 - 0.3 mg/dL Alkaline Phosphatase 83 38 - 126 U/L ALT 27 13 - 69 U/L AST 11 (L) 15 - 46 U/L Lactic Acid, Plasma Result Value Ref Range Lactic Acid 1.2 0.7 - 2.0 mmol/L Basic Metabolic Panel Result Value Ref Range Sodium 135 (L) 137 - 145 mmol/L Potassium 2.9 (L) 3.5 - 5.1 mmol/L Chloride 103 98 - 107 mmol/L CO2 23 22 - 30 mmol/L Anion Gap 8 NA Glucose 97 70 - 100 mg/dL BUN 5 (L) 7 - 20 mg/dL CREATININE 0.63 0.52 - 1.25 mg/dL eGFR >60.0 >60 mL/min EGFR IF NonAfrican Tanzanian >60.0 >60 mL/min Calcium 8.1 (L) 8.4 - 10.4 mg/dL Sedimentation Rate Result Value Ref Range Sed Rate 27 (H) 0 - 20 mm/h C-Reactive Protein Result Value Ref Range CRP 11.6 (H) 0.0 - 6.0 mg/L Ct Abdomen Pelvis W Contrast Result Date: 07/17/2018 Patient Name: DAHLIA MARINO ---CT--- Exam Date/Time 07/17/2018 05:32:[address] Abdomen/Pelvis w/ IV Contrast (IV Onl Ordering Physician MD JAMIR, IRENE Gray Accession Number [id number] CPT4 Codes 92044 (CT Abdomen/Pelvis w/ IV Contrast (IV Onl), Q9967 (CT ISOVUE 370MG/ML&[id number]&ML&1) Reason For Exam recent abscess due to crohns. finished abx. worsening pain, fever Report Clinical indication: Recent abscess due to Crohn's. Finished antibiotics. Worsening pain and fever. Comparison: 07/02/2018 Contrast: 75 mL Isovue-370 intravenously. No oral contrast was administered. Radiation dose: DLP 364 mGycm Imaging was performed from dome of the diaphragm through ischial tuberosities with axial, coronal and sagittal images reconstructed. Images of the lung bases show no pulmonary infiltrates or pleural effusions. The liver, spleen, pancreas, adrenal glands and kidneys contain no focal masses. Gallbladder appears surgically absent. Common duct measures about 1 cm diameter and appears unchanged. Anastomotic luz are noted in proximal transverse colon and at ileocolic anastomosis. In the mesentery in the vicinity of these two anastomoses there is an inflammatory mass of about 4 - 4.5 cm diameter which has a similar size and appearance to the abscess detected on the previous study. The lack of oral contrast makes evaluation for fistula formation not feasible on this exam. No pneumoperitoneum or ascites is identified. There are no additional areas of mesenteric inflammation. Distal colon is mildly distended with fluid and fecal content. Small bowel loops are nondilated. The general pattern is nonobstructive. Aorta and vena cava are normal in size. No retroperitoneal adenopathy or mass is noted. No free fluid is noted in the pelvis. No pelvic adenopathy is identified. Uterus appears surgically absent. No gross mass is identified within the urinary bladder. No acute interval osseous changes are identified. IMPRESSION: Abscess in the right side of the abdomen in the mesentery adjacent to the areas of ileocolic and proximal transverse colon anastomoses appears unchanged. There is not feasible to assess for fistula formation from this exam which does not include oral contrast. Report Dictated on Workstation: [id number]--- Final --- Dictated: 07/17/2018 5:09 am Dictating Physician: MD VENCES DIANE Signed Date and Time: 07/17/2018 5:16 am Signed by: MD VENCES DIANE Transcribed Date and Time: 07/17/2018 5:09 Final ED Course and MDM: In brief, Dahlia Marino is a 48 y.o. female whose care was signed out to me by the outgoing provider. In brief, patient has a history of, very Crohn's disease and multiple abdominal abscesses, bowel resections and a recent admission for a Crohn's flare and abscess. Patient says that she was completing her course of antibiotics, finished yesterday which she felt a popping sensation in her lower abdomen, severe pain, mostly in the right side. Patient's been febrile at home since then. On presentation here she was tachycardic and febrile. She did have tenderness on exam. A CT was ordered. Laboratory studies shows leukocytosis but no elevation of lactic acid. Patient was signed out to me pending the results of her computed tomography scan. The academic resident team was also notified as they admitted her last time. I was asked to call the team once the CT results were back. CT results show a similar fluid collection near the bladder, basically unchanged from previous. The patient has Arny been started on vancomycin and Zosyn, blood cultures were sent. I have ordered a urine culture as well. The academic resident service has agreed to come see the patient and likely admit her. ED Medication Orders Start Ordered Status Ordering Provider 07/17/18 0430 07/17/18 0420 piperacillin-tazobactam (ZOSYN) 4.5 g in dextrose 100 mL IVPB (premix) ONCE Acknowledged IRENE MARLOW 07/17/18 0430 07/17/18 0421 vancomycin (VANCOCIN) 1000 mg in dextrose 5% 200 mL IVPB ONCE Acknowledged IRENE MARLOW 07/17/18 0400 07/17/18 0357 acetaminophen (TYLENOL) tablet 1,000 mg ONCE Last MAR action: Given - by LINN GERONIMO on 07/17/18 at 0412 IRENE MARLOW 07/17/18 0300 07/17/18 0250 ondansetron (ZOFRAN) injection 4 mg ONCE Last MAR action: Given - by LINN GERONIMO on 07/17/18 at 0412 IRENE MARLOW 07/17/18 0300 07/17/18 0250 0.9 % sodium chloride bolus ONCE Last MAR action: New Bag - by LINN GERONIMO on 07/17/18 at 0412 IRENE MARLOW 07/17/18 0249 07/17/18 0250 HYDROmorphone (DILAUDID) injection 1 mg EVERY 15 MIN PRN Last MAR action: Given - by LINN GERONIMO on 07/17/18 at 0412 IRENE MARLOW Final Impression 1. Generalized abdominal pain 2. History of Crohn's disease DISPOSITION Decision To Admit 07/17/2018 05:48:49 AM (Please note that portions of this note may have been completed with a voice recognition program. Efforts were made to edit the dictations but occasionally words are mis-transcribed.) Bon Mercedes MD [employer] Bon Mercedes MD 07/17/18 0551 DISCHARGE SUMMARY Observed: 07/04/2018 Status: F Source: [employer] 11:29 AM SYSTEM REPOSITORY Attestation signed by Dena Liu MD at 2018 2:13 PM Patient seen and examined 07/04/2018. See my exam & notes regarding the discharge plan on progress note attestation dated 07/04/2018 Pager: [phone] Internal Medicine: Med Team Discharge Summary and Transition Note Dahlia Marino : 1970 ADMIT DATE: 07/02/2018 DISCHARGE DATE: 2018 PRIMARY CARE PHYSICIAN: No primary care provider on file. VISIT STATUS: Admission CODE STATUS: Prior DISCHARGE DIAGNOSES: Principal Problem: Exacerbation of Crohn's disease (HCC) Active Problems: Intra-abdominal abscess (HCC) Intra-abdominal collection Debility Weight loss, unintentional Severe malnutrition (HCC) Resolved Problems: * No resolved hospital problems. * HOSPITAL COURSE: 47yo F w/PMH significant for Crohn's (bowel resections x8, on gregory), hypothyroidism, fibromyalgia presented to [facility] w/ progressive 6 week hx of abdominal pain. She was first seen at [facility] in [place], [place] 6wks prior to admission for abdominal pain and found to have bacturia and sent home with flagyl. Between that time and last week the patient had progressive worsening abdominal pain and a low-high grade fever (Tmax 103.7). In addition to the abdominal pain (piercing pelvic pain in mid abdomen and RUQ pain), the patient endorses fevers (103 Max) for the last 2 weeks, diarrhea, chest tightness/labored breathing whenever the fever gets worse, urinary freq/urgency, green foul smelling discharge (monogamous relationship), and air in the urine. CT abdomen done at [facility] (07/01/18) which showed a complex inflammatory collection/mass in anterior RLQ abscess. Patient was then transferred to [facility] the same day for further management and a second opinion. Patient and then requested transfer to [facility] as they have had family treated here and are comfortable with institution. ? Fevers, clinical symptoms, and white count improved during admission after initiation of fluids, abx, and steroids (zosyn, methylprednisolone 40 IV daily). GI and surgery were onboard and recommended conservative management and avoidance of immunosuppressive agents at this time due to abscess. Patient developed fungal vaginitis with the abx and was treated with diflucan. Patient going home in stable condition. Will continue augmentin 875/125 BID for 10 days, Prednisone 40mg daily until seen by her GI physician, and diflucan 200mg for 7 days. Patient instructed to call GI Dr and PCP for follow- up. Also to call and set up follow-up with general surgery within 1 week. ? PROCEDURES: NA CONSULTANTS: GI- Oliver Quigley Gen Surg- Micheline Barnard DISCHARGE MEDICATIONS: Dahlia Marino Home Medication Instructions MARLYN:[id number] Printed on:07/05/18 1006 Medication Information adalimumab (HUMIRA) 40 MG/0.8ML injection Inject 40 mg into the skin once amoxicillin-clavulanate (AUGMENTIN) 875-125 MG per tablet Take 1 tablet by mouth 2 times daily for 10 days calcium-vitamin D (OSCAL) 250-125 MG-UNIT per tablet Take 2 tablets by mouth daily fluconazole (DIFLUCAN) 200 MG tablet Take 1 tablet by mouth daily for 7 days HYDROmorphone (DILAUDID) 2 MG tablet Take 1 tablet by mouth every 4 hours as needed (for Pain) for up to 7 days.. Earliest Fill Date: 07/04/18 levothyroxine (SYNTHROID) 100 MCG tablet Take 1 tablet by mouth Daily magnesium chloride (MAG DELAY) 64 MG TBEC extended release tablet Take 1 tablet by mouth daily (with breakfast) potassium chloride (KLOR-CON M) 20 MEQ extended release tablet Take 1 tablet by mouth daily predniSONE (DELTASONE) 20 MG tablet Take 2 tablets by mouth daily vitamin B-12 (CYANOCOBALAMIN) 100 MCG tablet Take 50 mcg by mouth daily DIET: ACTIVITY: No restriction. up with assist SIGNIFICANT DIAGNOSTIC STUDIES: CT abdomen 07/02/18- abscess in the right mid quadrant extending from postsurgical sutures which appear to be at the level of the transverse colon. Loops of bowel inferior to this site demonstrate reactive changes with bowel wall thickening with stranding in the mesentery and reactive lymph nodes. ? The bladder contour is smooth. Intraluminal contrast is present without locules of air and without an air-fluid level. On imaging, a discrete fistula tract is not identified however this does not exclude a fistula given the clinical presentation. ? Bilateral atelectasis with tiny pleural effusions. ? Hysterectomy. Appendectomy. Cholecystectomy. PENDING RESULTS AT TIME OF DISCHARGE: Blood and urine cultures COMPLEXITY OF FOLLOW UP: [x] Moderate Complexity: follow up within 7-14 calendar days (62801) [] Severe Complexity: follow up within 7 calendar days (94864) FOLLOW UP TESTING, PENDING RESULTS OR REFERRALS AT TRANSITIONAL CARE VISIT: [] Yes [x] No DISPOSITION: Home FACILITY/HOME CARE AGENCY NAME:NA Follow up with PCP, GI, Gen Surg INSTRUCTIONS TO MA/SW: Please call patient on day after discharge (must document patient contacted within 2 business days of discharge). FOLLOW UP QUESTIONS FOR MA/SW: 1. Did you get medications filled and taking them as instructed from discharge? 2. Are you following your discharge instructions from your hospital stay? 3. Please confirm patient is scheduled for a follow up appointment within the above time frame. GRAM W/ AUTODIFF Collected: 07/04/2018 Status: F Source: [employer] 5:08 AM SYSTEM REPOSITORY TYPE CODE TESTS RESULT OUT OF REFERENCE UNITS RANGE LAB IWBC 3.6-10.7 10*3/uL WBC Normal 7.0 LAB RBC 3.80-5.20 10*6/uL Low RBC 2.97 LAB HGB 11.7-16.0 g/dL Low Hemoglobin 9.6 LAB HCT 35.0-47.0 % Low Hematocrit 28.7 LAB MCV 79.0-98.0 fL MCV Normal 96.8 LAB MCH 26.0-34.0 pg MCH Normal 32.5 LAB MCHC 32.0-36.0 % MCHC Normal 33.5 LAB RDW 11.5-14.5 % RDW Normal 12.5 LAB PLT 140-440 10*3/uL Platelet Normal 412 LAB MPV 7.4-10.4 fL Low MPV 7.3 LAB GRAN% 40.0-80.0 % Granulocytes Normal 66.1 LAB LYMP% 20.0-40.0 % Lymphocytes Normal 27.7 LAB MONO% 2.0-10.0 % Monocytes Normal 5.6 LAB EOS% 1.0-6.0 % Low Eosinophils 0.2 LAB BAS% 0.0-2.0 % Basophils Normal 0.4 LAB ANC 1.8-7.0 10*3/uL Abs Normal Neutrophile Cnt 4.6 LAB ALC 1.0-4.3 10*3/uL Abs Lymph Cnt Normal 1.9 LAB AMC 0.0-0.8 10*3/uL Abs Monocyte Normal Cnt 0.4 LAB AEC 0.0-0.5 10*3/uL Abs Eosin Cnt Normal 0.0 LAB ABC 0.0-0.2 10*3/uL Abs Baso Cnt Normal 0.0 Performed By: #### HEMDF, BMP3M, MG3, PHOS3, LFT3 #### [facility] [address] [place] [address] BASIC METABOLIC PANEL Collected: 07/04/2018 Status: F Source: [employer] 5:08 AM SYSTEM REPOSITORY TYPE CODE TESTS RESULT OUT OF RANGE REFERENCE UNITS LAB NA3 137-145 mmol/L Sodium Normal 141 LAB K3 3.5-5.1 mmol/L Normal Potassium 3.5 LAB CL3 98-107 mmol/L High Chloride 113 LAB CO23 22-30 mmol/L Carbon Normal Dioxide 23 LAB ANIN3 NA Anion Gap 5 LAB GLUC3 70-100 mg/dL Glucose Normal 83 LAB BUN3 7-20 mg/dL Low Urea Nitrogen 2 LAB CRET3 0.52-1.25 mg/dL Normal Creatinine 0.61 LAB GF3BR >60 mL/min eGFR > 60.0 LAB GF3WR >60 mL/min eGFR OTHER > 60.0 Result Comment: Source- MDRD equation with creatinine calibration to IDMS(NKDEP) eGFR not recommended for drug dose adjustment LAB CA3 8.4-10.4 mg/dL Normal Calcium 8.6 Performed By: #### HEMDF, BMP3M, MG3, PHOS3, LFT3 #### [facility] [address] [place] [phone] MAGNESIUM Collected: 07/04/2018 Status: F Source: [employer] 5:08 AM SYSTEM REPOSITORY TYPE CODE TESTS RESULT OUT OF RANGE REFERENCE UNITS LAB MG3 1.6-2.3 mg/dL Normal Magnesium 1.8 Performed By: #### HEMDF, BMP3M, MG3, PHOS3, LFT3 #### [facility] [address] [place] [id number] PHOSPHORUS Collected: 07/04/2018 Status: F Source: [employer] 5:08 AM SYSTEM REPOSITORY TYPE CODE TESTS RESULT OUT OF RANGE REFERENCE UNITS LAB PHOS3 2.5-4.5 mg/dL Normal Phosphorus 3.8 Performed By: #### HEMDF, BMP3M, MG3, PHOS3, LFT3 #### [facility] [address] [place] [id number] HEPATIC FUNCTION Collected: 07/04/2018 Status: F Source: [employer] 5:08 AM SYSTEM REPOSITORY TYPE CODE TESTS RESULT OUT OF RANGE REFERENCE UNITS LAB ALB3 3.5-5.0 g/dL Low Albumin, Serum 2.7 LAB TP3 6.3-8.2 g/dL Low Total Protein 5.9 LAB BILT3 0.2-1.3 mg/dL Low Bilirubin,Total < 0.1 LAB BILD3 0.0-0.3 mg/dL Normal Bilirubin,Direct 0.0 LAB ALKP3 38-126 U/L Alkaline Normal Phosphatase 120 LAB ALT3 13-69 U/L ALT (SGPT) Normal 37 LAB AST3 15-46 U/L AST (SGOT) Normal 19 Performed By: #### HEMDF, BMP3M, MG3, PHOS3, LFT3 #### [facility] [address] [place] [phone] HEMOGRAM W/ AUTODIFF Collected: 07/03/2018 Status: F Source: [employer] 2:31 AM SYSTEM REPOSITORY TYPE CODE TESTS RESULT OUT OF REFERENCE UNITS RANGE LAB IWBC 3.6-10.7 10*3/uL WBC Normal 8.0 LAB RBC 3.80-5.20 10*6/uL Low RBC 3.22 LAB HGB 11.7-16.0 g/dL Low Hemoglobin 10.3 LAB HCT 35.0-47.0 % Low Hematocrit 30.5 LAB MCV 79.0-98.0 fL MCV Normal 94.9 LAB MCH 26.0-34.0 pg MCH Normal 32.1 LAB MCHC 32.0-36.0 % MCHC Normal 33.8 LAB RDW 11.5-14.5 % RDW Normal 12.3 LAB PLT 140-440 10*3/uL Platelet Normal 378 LAB MPV 7.4-10.4 fL Low MPV 7.3 LAB GRAN% 40.0-80.0 % Granulocytes Normal 75.8 LAB LYMP% 20.0-40.0 % Low Lymphocytes 16.2 LAB MONO% 2.0-10.0 % Monocytes Normal 7.8 LAB EOS% 1.0-6.0 % Low Eosinophils 0.1 LAB BAS% 0.0-2.0 % Basophils Normal 0.1 LAB ANC 1.8-7.0 10*3/uL Abs Normal Neutrophile Cnt 6.0 LAB ALC 1.0-4.3 10*3/uL Abs Lymph Cnt Normal 1.3 LAB AMC 0.0-0.8 10*3/uL Abs Monocyte Normal Cnt 0.6 LAB AEC 0.0-0.5 10*3/uL Abs Eosin Cnt Normal 0.0 LAB ABC 0.0-0.2 10*3/uL Abs Baso Cnt Normal 0.0 Performed By: #### HEMDF, MG3, PHOS3, BMP3M #### [facility] [address] [place] [address] MAGNESIUM Collected: 07/03/2018 Status: F Source: [employer] 2:31 AM SYSTEM REPOSITORY TYPE CODE TESTS RESULT OUT OF RANGE REFERENCE UNITS LAB MG3 1.6-2.3 mg/dL Normal Magnesium 2.1 Performed By: #### HEMDF, MG3, PHOS3, BMP3M #### [facility] [place] PHOSPHORUS Collected: 07/03/2018 Status: F Source: [employer] 2:31 AM SYSTEM REPOSITORY TYPE CODE TESTS RESULT OUT OF RANGE REFERENCE UNITS LAB PHOS3 2.5-4.5 mg/dL Normal Phosphorus 3.8 Performed By: #### HEMDF, MG3, PHOS3, BMP3M #### [facility] [address] [place] [address] BASIC METABOLIC PANEL Collected: 07/03/2018 Status: F Source: [employer] 2:31 AM SYSTEM REPOSITORY TYPE CODE TESTS RESULT OUT OF RANGE REFERENCE UNITS LAB NA3 137-145 mmol/L Sodium Normal 140 LAB K3 3.5-5.1 mmol/L Low Potassium 3.4 LAB CL3 98-107 mmol/L High Chloride 111 LAB CO23 22-30 mmol/L Carbon Normal Dioxide 24 LAB ANIN3 NA Anion Gap 5 LAB GLUC3 70-100 mg/dL High Glucose 135 LAB BUN3 7-20 mg/dL Low Urea Nitrogen < 2 LAB CRET3 0.52-1.25 mg/dL Low Creatinine 0.51 LAB GF3BR >60 mL/min eGFR > 60.0 LAB GF3WR >60 mL/min eGFR OTHER > 60.0 Result Comment: Source- MDRD equation with creatinine calibration to IDMS(NKDEP) eGFR not recommended for drug dose adjustment LAB CA3 8.4-10.4 mg/dL Normal Calcium 8.4 Performed By: #### HEMDF, MG3, PHOS3, BMP3M #### [facility] [address] [place] [address] URINALYSIS,MACRO Collected: 07/03/2018 Status: F Source: [employer] 2:23 AM SYSTEM REPOSITORY TYPE CODE TESTS RESULT OUT OF REFERENCE UNITS RANGE LAB APPUR Clear NA Appearance Cloudy LAB COLUR Lt. Yellow NA Color Yellow LAB USG 1.005-1.030 NA Specific Normal [place],Urine 1.015 LAB UPH 5.0-8.0 NA pH,Urine Normal 7.0 LAB ULUK Negative NA Leukocytes 2 + LAB UNIT Negative NA Nitrites NEG LAB UPRO Negative mg/dL Total Protein,Urine 25 LAB UGLU Negative mg/dL Glucose,Urine NORM LAB UKET Negative mg/dL Ketone,Urine Trace LAB UURO 0-1 mg/dL Urobilinogen NORM LAB UBIL Negative NA Bilirubin,Ur NEG LAB UBLD Negative {RBC}/uL Occult Blood,Ur 250 Performed By: #### UAMAC, UAMIC #### [facility] [address] [place] [address] URINALYSIS,MICROSCOPIC Collected: Status: F Source: [employer] 07/03/2018 2:23 AM HEALTH SYSTEM REPOSITORY TYPE CODE TESTS RESULT OUT OF REFERENCE UNITS RANGE LAB WBCU 0-5 /[HPF] 26 WBC,Urine - 50 LAB RBCU 0-2 /[HPF] 11 RBC,Urine - 25 LAB EPIU 3-5 /[HPF] 0 Epithelial Cells - 2 LAB LILLIAM Negative NA Bacteria Many (51-100) LAB AMPH Negative NA Amorphous Moderate Phosphates (6-50) Performed By: #### UAMAC, UAMIC #### [facility] [place] [address] Observed: 07/03/2018 Status: F Source: [employer] CULTURE URINE 2:23 AM SYSTEM REPOSITORY Order Comment: Specimen Source Comment:Urine, clean catch CULTURE URINE --> Status: F No growth (<1,000 CFU/ml). Performed By: #### C/UR #### [facility] [address] [address] [address] ABDOMEN/PELVIS W/ Observed: 07/02/2018 Status: F Source: [employer] CONTRAST 8:06 AM SYSTEM REPOSITORY Patient Name: DAHLIA MARINO CT Exam Date/Time 07/02/2018 07:47:[address] Abdomen/Pelvis w/ IV Contrast (IV Onl Ordering Physician MD IVIS, MPH, MICHELINE Accession Number [id number] CPT4 Codes 73040 (CT Abdomen/Pelvis w/ IV Contrast (IV Onl), Q9967 (CT ISOVUE 370MG/[id number]) Reason For Exam Crohns flare, known abscess in RUQ, gas in urine, vaginal discharge, concern for fistula Report CT ABDOMEN AND PELVIS WITH CONTRAST Indication: This is a 47-year-old inpatient who presents with a known right upper quadrant abscess with gas in urine and vaginal discharge with concern for a possible fistula based on clinical findings. The patient has a fever and generalized abdominal pain. The patient has a history of Crohn's. Surgical history includes hysterectomy, appendectomy, and prior bowel partial resection. Scan Parameters: Multiple axial 3mm images were obtained of the abdomen and pelvis following oral contrast with dynamic intravenous infusion of 75 mL of Isovue 370 mg contrast media. Coronal and sagittal reconstructions were reviewed as well. Comparison: No comparison images are provided FINDINGS: Lung base atelectasis is present with tiny bilateral pleural effusions. The osseous structures are intact. The aorta contour is unremarkable. Mild atherosclerotic changes are present. Soft and hard plaque is noted along the distal intra-abdominal aorta. No aneurysmal dilatation. The liver contour is smooth. Small hepatic lesions of decreased attenuation are present, some of which are too small to characterize, possibly representing cysts. The gallbladder is not visualized. The common bile duct is prominent. The pancreas appears unremarkable. The spleen is unremarkable. The adrenal glands are unremarkable. The kidneys symmetrically enhance without hydronephrosis. There is no obstructing ureteral calculus. The bladder contour is unremarkable. Intraluminal contrast is present within the bladder with no air-fluid level and no intraluminal air. On these images a fistula tract is not identified from the bladder. Intraluminal contrast is present throughout the colon and into the distal small bowel without evidence for bowel obstruction. The contrast is present to the level of the rectum. No extraluminal contrast appreciated. Postsurgical sutures are present along the transverse colon in the right mid quadrant. At the anastomosis site there is stranding within the mesentery with a mixed fluid collection compatible with the patient's known abscess measuring 5.0 cm (transverse) by 4.0 cm (sagittal). There is stranding and edema throughout the mesentery. Reactive changes are present in the adjacent bowel loops inferior to this site with wall thickening and poor distention. Reactive lymph nodes are also noted. Per report, the appendix has been surgically removed. The uterus has been surgically removed. Fluid is noted in the pelvic cul-de-sac. IMPRESSION: Findings are compatible with an abscess in the right mid quadrant extending from postsurgical sutures which appear to be at the level of the transverse colon. Loops of bowel inferior to this site demonstrate reactive changes with bowel wall thickening with stranding in the mesentery and reactive lymph nodes. The bladder contour is smooth. Intraluminal contrast is present without locules of air and without an air-fluid level. On imaging, a discrete fistula tract is not identified however this does not exclude a fistula given the clinical presentation. Bilateral atelectasis with tiny pleural effusions. Hysterectomy. Appendectomy. Cholecystectomy. Report Dictated on Final Dictated: 07/02/2018 8:06 am Dictating Physician: MD CASSIDY JENNIFER R Signed Date and Time: 07/02/2018 8:22 am Signed by: MD CASSIDY JENNIFER R Transcribed Date and Time: 07/02/2018 8:06 URINALYSIS,MACRO Collected: 07/02/2018 Status: F Source: [employer] 1:59 AM SYSTEM REPOSITORY TYPE CODE TESTS RESULT OUT OF REFERENCE UNITS RANGE LAB APPUR Clear NA Appearance Clear LAB COLUR Lt. Yellow NA Color P. Yellow LAB USG 1.005-1.030 NA Specific Normal [place],Urine 1.010 LAB UPH 5.0-8.0 NA pH,Urine Normal 7.0 LAB ULUK Negative NA Leukocytes 2 + LAB UNIT Negative NA Nitrites NEG LAB UPRO Negative mg/dL Total Protein,Urine NEG LAB UGLU Negative mg/dL Glucose,Urine NORM LAB UKET Negative mg/dL Ketone,Urine Trace LAB UURO 0-1 mg/dL Urobilinogen NORM LAB UBIL Negative NA Bilirubin,Ur NEG LAB UBLD Negative {RBC}/uL Occult Blood,Ur 25 Performed By: #### UAMAC, UAMIC #### [facility] [employer] [address] [address] URINALYSIS,MICROSCOPIC Collected: Status: F Source: [facility] 07/02/2018 1:59 AM HEALTH SYSTEM REPOSITORY TYPE CODE TESTS RESULT OUT OF REFERENCE UNITS RANGE LAB WBCU 0-5 /[HPF] 11 WBC,Urine - 25 LAB RBCU 0-2 /[HPF] 3 RBC,Urine - 5 LAB EPIU 3-5 /[HPF] 3 Epithelial Cells - 5 LAB LILLIAM Negative NA Bacteria Moderate (6-50) Performed By: #### UAMAC, UAMIC #### [facility] [address] [place] [address] Observed: 07/02/2018 Status: F Source: [employer] BLOOD 1:45 AM SYSTEM REPOSITORY Order Comment: Specimen Source Comment:Blood CULTURE BLOOD --> Status: F No growth at 5 days. Performed By: #### C/BLD #### [facility] [address] [place] [address] Observed: 07/02/2018 Status: F Source: [employer] BLOOD (TWO) 1:45 AM SYSTEM REPOSITORY Order Comment: Specimen Source Comment:Blood CULTURE BLOOD (Two) --> Status: F No growth at 5 days. Performed By: #### C/BLT #### [facility] [address] [place] [address] HEMOGRAM W/ AUTODIFF Collected: 07/02/2018 Status: F Source: [employer] 1:37 AM SYSTEM REPOSITORY TYPE CODE TESTS RESULT OUT OF REFERENCE UNITS RANGE LAB IWBC 3.6-10.7 10*3/uL WBC High 12.0 LAB RBC 3.80-5.20 10*6/uL Low RBC 3.18 LAB HGB 11.7-16.0 g/dL Low Hemoglobin 10.4 LAB HCT 35.0-47.0 % Low Hematocrit 30.2 LAB MCV 79.0-98.0 fL MCV Normal 94.8 LAB MCH 26.0-34.0 pg MCH Normal 32.6 LAB MCHC 32.0-36.0 % MCHC Normal 34.4 LAB RDW 11.5-14.5 % RDW Normal 12.5 LAB PLT 140-440 10*3/uL Platelet Normal 389 LAB MPV 7.4-10.4 fL Low MPV 7.1 LAB GRAN% 40.0-80.0 % Granulocytes Normal 73.5 LAB LYMP% 20.0-40.0 % Low Lymphocytes 13.7 LAB MONO% 2.0-10.0 % Monocytes High 11.8 LAB EOS% 1.0-6.0 % Low Eosinophils 0.5 LAB BAS% 0.0-2.0 % Basophils Normal 0.5 LAB ANC 1.8-7.0 10*3/uL Abs High Neutrophile Cnt 8.8 LAB ALC 1.0-4.3 10*3/uL Abs Lymph Cnt Normal 1.6 LAB AMC 0.0-0.8 10*3/uL Abs Monocyte High Cnt 1.4 LAB AEC 0.0-0.5 10*3/uL Abs Eosin Cnt Normal 0.1 LAB ABC 0.0-0.2 10*3/uL Abs Baso Cnt Normal 0.1 Performed By: #### HEMDF, PT, LACT3, TSH5, CMP3, MG3, FT4M, TROPN #### [facility] [address] [place] [phone] PROTHROMBIN TIME Collected: 07/02/2018 Status: F Source: [employer] 1:37 AM SYSTEM REPOSITORY TYPE CODE TESTS RESULT OUT OF REFERENCE UNITS RANGE LAB PROTM 9.0-12.0 s Prothrombin Normal Time 11.9 Result Comment: . LAB INR 0.9-1.1 NA Normal INR 1.1 Result Comment: Recommended Anticoagulant Therapy: SEE BELOW ----- INR of 2.0 - 3.0 : - Prophylaxis of Venous Thrombosis (high-risk surgery) - Treatment of Venous Thrombosis - Treatment of Pulmonary Embolism (Includes tissue heart valves, Acute Myocardial Infarction to prevent systemic embolism, Valvular Heart Disease, and Atrial Fibrillation) ----- INR of 2.5 - 3.5 : - Mechanical Prosthetic Valves (high risk) - If oral anticoagulant therapy is used to prevent Myocardial Infarction Performed By: #### HEMDF, PT, LACT3, TSH5, CMP3, MG3, FT4M, TROPN #### [facility] [address] [place] [phone] LACTIC ACID Collected: 07/02/2018 Status: F Source: [employer] 1:37 AM SYSTEM REPOSITORY TYPE CODE TESTS RESULT OUT OF REFERENCE UNITS RANGE LAB LACT3 0.7-2.0 mmol/L Low Lactic Acid 0.6 Performed By: #### HEMDF, PT, LACT3, TSH5, CMP3, MG3, FT4M, TROPN #### [facility] [address] [place] [phone] THYROID STIM. Collected: 07/02/2018 Status: F Source: [employer] HORMONE 1:37 AM SYSTEM REPOSITORY TYPE CODE TESTS RESULT OUT OF REFERENCE UNITS RANGE LAB TSH5 0.465-4.680 u[IU]/mL Low Thyroid Stim. 0.175 Hormone Performed By: #### HEMDF, PT, LACT3, TSH5, CMP3, MG3, FT4M, TROPN #### [facility] [address] [place] [phone] COMP METABOLIC PANEL Collected: 07/02/2018 Status: F Source: [employer] 1:37 AM SYSTEM REPOSITORY TYPE CODE TESTS RESULT OUT OF RANGE REFERENCE UNITS LAB NA3 137-145 mmol/L Sodium Normal 138 LAB K3 3.5-5.1 mmol/L Low Potassium 2.9 LAB CL3 98-107 mmol/L Chloride Normal 106 LAB CO23 22-30 mmol/L Carbon Normal Dioxide 25 LAB ANIN3 NA Anion Gap 7 LAB GLUC3 70-100 mg/dL Glucose Normal 96 LAB BUN3 7-20 mg/dL Low Urea Nitrogen 5 LAB CRET3 0.52-1.25 mg/dL Normal Creatinine 0.58 LAB GF3BR >60 mL/min eGFR > 60.0 LAB GF3WR >60 mL/min eGFR OTHER > 60.0 Result Comment: Source- MDRD equation with creatinine calibration to IDMS(NKDEP) eGFR not recommended for drug dose adjustment LAB CA3 8.4-10.4 mg/dL Low Calcium 8.0 LAB ALB3 3.5-5.0 g/dL Low Albumin, Serum 3.2 LAB TP3 6.3-8.2 g/dL Low Total Protein 6.2 LAB BILT3 0.2-1.3 mg/dL Normal Bilirubin,Total 0.5 LAB ALKP3 38-126 U/L High Alkaline Phosphatase 191 LAB ALT3 13-69 U/L ALT (SGPT) Normal 55 LAB AST3 15-46 U/L AST (SGOT) Normal 41 Performed By: #### HEMDF, PT, LACT3, TSH5, CMP3, MG3, FT4M, TROPN #### [facility] [address] [place] [phone] MAGNESIUM Collected: 07/02/2018 Status: F Source: [facility] 1:37 AM SYSTEM REPOSITORY TYPE CODE TESTS RESULT OUT OF REFERENCE UNITS RANGE LAB MG3 1.6-2.3 mg/dL Low Magnesium 1.5 Performed By: #### HEMDF, PT, LACT3, TSH5, CMP3, MG3, FT4M, TROPN #### [facility] [address] [place] [address] FREE T4 Collected: 07/02/2018 Status: F Source: [employer] 1:37 AM SYSTEM REPOSITORY TYPE CODE TESTS RESULT OUT OF RANGE REFERENCE UNITS LAB FT4M 0.78-2.19 ng/dL Normal Free T4 1.87 Performed By: #### HEMDF, PT, LACT3, TSH5, CMP3, MG3, FT4M, TROPN #### [facility] [address] [place] [address] TROPONIN I Collected: 07/02/2018 Status: F Source: [employer] 1:37 AM SYSTEM REPOSITORY TYPE CODE TESTS RESULT OUT OF RANGE REFERENCE UNITS LAB TROP4 0.000-0.034 ng/mL Normal Troponin I < 0.012 Result Comment: 0.046 - 0.400 = Indeterminate > 0.400 = Consider Myocardial Injury Performed By: #### HEMDF, PT, LACT3, TSH5, CMP3, MG3, FT4M, TROPN #### [facility] [address] [place], [place] [phone] ED PROVIDER NOTE Observed: 07/02/2018 Status: F Source: [employer] 12:02 AM SYSTEM REPOSITORY Emergency Department Encounter [facility] MED SURG Patient: Dahlia Marino : 1970 Date of Evaluation: 07/02/2018 ED Provider: Eloisa Vaughan DO Chief Complaint Chief Complaint Patient presents with ? Fever ? Abdominal Cramping ? Abdominal Pain ROC Marino is a 47 y.o. female who presents to the emergency department With history of Crohn's presenting with concern for possible intra- abdominal abscess. Patient has been having fevers intermittently for the past few weeks, was seen at [facility]. yesterday, CT there showed an intra-abdominal mass concerning for abscess versus neoplasm, patient was uncomfortable with care and came to be seen here. She is complaining of right lower quadrant abdominal pain and cramping. Denies any chest pain or shortness of breath currently. Denies any urinary symptoms. Pt also complaining of 'passing gas through urethra', and 'bladder air'. ROS: At least 10 systems reviewed and otherwise acutely negative except as in the [place]. Past History Past Medical History: Diagnosis Date ? Crohn's colitis (HCC) ? Fibromyalgia ? Hypothyroid ? Liver abscess ? RSD (reflex sympathetic dystrophy) Past Surgical History: Procedure Laterality Date ? APPENDECTOMY ? CORONARY ANGIOPLASTY WITH STENT PLACEMENT ? HYSTERECTOMY ? SMALL INTESTINE SURGERY x8 from Crohns ? THYROIDECTOMY Social History Social History ? Marital status: Unknown Spouse name: N/A ? Number of children: N/A ? 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 Smoking status: Former Smoker Years: 20.00 Types: Cigarettes ? Smokeless tobacco: Current User ? Alcohol use No ? Drug use: No ? Sexual activity: Not Asked Other Topics Concern ? None Social History Narrative ? None Medications/Allergies Current Discharge Medication List CONTINUE these medications which have NOT CHANGED Details levothyroxine (SYNTHROID) 100 MCG tablet Take 100 mcg by mouth Daily adalimumab (HUMIRA) 40 MG/0.8ML injection Inject 40 mg into the skin once Allergies Allergen Reactions ? Doxycycline ? Erythromycin ? Flagyl [Metronidazole] Physical Exam ED Triage Vitals [07/02/18 0024] BP Temp Temp Source Pulse Resp SpO2 Height Weight (!) 101/52 99.5 ?F (37.5 ?C) Oral 95 18 97 % 5' 4 (1.626 m) 142 lb (64.4 kg) GENERAL APPEARANCE: Awake and alert. Cooperative. No acute distress. HEAD: Normocephalic. Atraumatic. EYES: Sclera anicteric. ENT: Tolerates saliva. No trismus. NECK: Supple. Trachea midline. CARDIO: RRR. Radial pulse 2+. LUNGS: Respirations unlabored. CTAB. ABDOMEN: abd soft, RLQ tenderness to palpation, non distended, no peritoneal sx, non surgical abdomen. EXTREMITIES: No acute deformities. SKIN: Warm and dry. NEUROLOGICAL: No gross facial drooping. Moves all 4 extremities spontaneously. PSYCHIATRIC: Normal mood. Diagnostics Labs: Results for orders placed or performed during the hospital encounter of 07/02/18 Hemogram (CBC) w/Auto Diff Result Value Ref Range WBC 12.0 (H) 3.6 - 10.7 10*3/uL RBC 3.18 (L) 3.80 - 5.20 10*6/uL Hemoglobin 10.4 (L) 11.7 - 16.0 g/dL Hematocrit 30.2 (L) 35.0 - 47.0 % MCV 94.8 79.0 - 98.0 fL MCH 32.6 26.0 - 34.0 pg MCHC 34.4 32.0 - 36.0 % RDW 12.5 11.5 - 14.5 % Platelets 389 140 - 440 10*3/uL MPV 7.1 (L) 7.4 - 10.4 fL Granulocytes % 73.5 40.0 - 80.0 % Lymphocyte % 13.7 (L) 20.0 - 40.0 % Monocytes 11.8 (H) 2.0 - 10.0 % Eosinophils 0.5 (L) 1.0 - 6.0 % Basophils 0.5 0.0 - 2.0 % Absolute Neut # 8.8 (H) 1.8 - 7.0 10*3/uL Absolute Lymph # 1.6 1.0 - 4.3 10*3/uL Absolute [place] # 1.4 (H) 0.0 - 0.8 10*3/uL Absolute Eos # 0.1 0.0 - 0.5 10*3/uL Absolute Baso # 0.1 0.0 - 0.2 10*3/uL Comprehensive Metabolic Panel Result Value Ref Range Sodium 138 137 - 145 mmol/L Potassium 2.9 (L) 3.5 - 5.1 mmol/L Chloride 106 98 - 107 mmol/L CO2 25 22 - 30 mmol/L Anion Gap 7 NA Glucose 96 70 - 100 mg/dL BUN 5 (L) 7 - 20 mg/dL CREATININE 0.58 0.52 - 1.25 mg/dL eGFR >60.0 >60 mL/min EGFR IF NonAfrican [place] >60.0 >60 mL/min Calcium 8.0 (L) 8.4 - 10.4 mg/dL Albumin,Serum 3.2 (L) 3.5 - 5.0 g/dL Total Protein 6.2 (L) 6.3 - 8.2 g/dL Total Bilirubin 0.5 0.2 - 1.3 mg/dL Alkaline Phosphatase 191 (H) 38 - 126 U/L ALT 55 13 - 69 U/L AST 41 15 - 46 U/L Urinalysis Result Value Ref Range Appearance Clear Clear NA Color, UA P. Yellow Lt. Yellow NA Specific [place], Urine 1.010 1.005 - 1.030 NA pH, Urine 7.0 5.0 - 8.0 NA LEUKOCYTES, UA 2+ Negative NA Nitrite, Urine NEG Negative NA Total Protein, Urine NEG Negative mg/dL Glucose, Ur NORM Negative mg/dL Ketones, Urine Trace Negative mg/dL Urobilinogen, Urine NORM 0 - 1 mg/dL Bilirubin, Urine NEG Negative NA Occult Blood,Urine 25 Negative [RBC]/uL TSH without Reflex Result Value Ref Range TSH 0.175 (L) 0.465 - 4.680 u[IU]/mL Magnesium Result Value Ref Range Magnesium 1.5 (L) 1.6 - 2.3 mg/dL Protime-INR Result Value Ref Range Protime 11.9 9.0 - 12.0 s INR 1.1 0.9 - 1.1 NA Lactic Acid, Plasma Result Value Ref Range Lactic Acid 0.6 (L) 0.7 - 2.0 mmol/L Urinalysis with Microscopic Result Value Ref Range WBC, UA 11-25 0 - 5 /[HPF] RBC, UA 3-5 0 - 2 /[HPF] Epithelial Cells 3-5 3 - 5 /[HPF] Bacteria, UA Moderate (6-50) Negative NA T4, Free Result Value Ref Range T4 Free 1.87 0.78 - 2.19 ng/dL Radiographs: No results found. Procedures/EKG: EKG Interpretation Interpreted by me Rhythm: normal sinus Rate: normal, 83 [place]: normal Ectopy: none Conduction: normal ST Segments: no acute change T Waves: no acute change Q Waves: none Clinical Impression: no acute changes and normal EKG ED Course and MDM In brief, Dahlia Marino is a 47 y.o. female who presented to the emergency department With concerns for intra-abdominal abscess, given one dose of Zosyn and outlying facility yesterday, will give another dose today. Intermittent fevers, afebrile upon arrival though did take Tylenol recently. Attempted multiple times to obtain records from outlying facility, only got the CAT scan results as well as the nursing notes, never was able to get ED attending note. I discussed with surgery, who requests the CT scan be repeated, I discussed with radiologist who states that we can hold off on a CAT scan tonight and repeat in the morning prior to IR drainage of abscess since it would need to be repeated anyway as this when we can save her CT scan. I spoke with the surgery resident who states that they cannot see a patient without seeing the CT images, and if the scan is not repeated to discuss with medicine for admission since IR will will be doing the drainage anyways. I spoke with [facility] resident who evaluated the patient and state that they would like the CT scan repeated as well just to make sure there is no need for surgical intervention prior to IR intervention. Patient to be admitted to [facility] and to have CT scan with oral contrast. Patient is hypokalemic we'll start replacement. ED Medication Orders Start Ordered Status Ordering Provider 07/02/18 1200 07/02/18 0552 piperacillin-tazobactam (ZOSYN) 3.375 g in dextrose 50 mL IVPB extended infusion (premix) EVERY 8 HOURS Acknowledged MICHELINE LANGSTON 07/02/18 0900 07/02/18 0552 sodium chloride flush 0.9 % injection 10 mL 2 times per day Acknowledged MICHELINE LANGSTON 07/02/18 0900 07/02/18 0552 enoxaparin (LOVENOX) injection 40 mg DAILY Acknowledged MICHELINE LANGSTON 07/02/18 0630 07/02/18 0608 magnesium sulfate 2 g in 50 mL IVPB premix ONCE Acknowledged KIERRA CAMILO 07/02/18 0615 07/02/18 0552 0.9 % sodium chloride infusion CONTINUOUS Last MAR action: New Bag - by YOGI FORRESTER on 07/02/18 at 0605 MICHELINE LANGSTON 07/02/18 0552 07/02/18 0552 sodium chloride flush 0.9 % injection 10 mL PRN Acknowledged MICHELINE LANGSTON 07/02/18 0552 07/02/18 0552 magnesium hydroxide (MILK OF MAGNESIA) 400 MG/5ML suspension 30 mL DAILY PRN Acknowledged MICHELINE LANGSTON 07/02/18 0552 07/02/18 0552 ondansetron (ZOFRAN) injection 4 mg EVERY 6 HOURS PRN Acknowledged MICHELINE LANGSTON 07/02/18 0552 07/02/18 0552 HYDROmorphone (DILAUDID) injection 0.5 mg EVERY 4 HOURS PRN Acknowledged MICHELINE LANGSTON Neri 07/02/18 0520 07/02/18 0520 diatrizoate meglumine-sodium (GASTROGRAFIN) 66-10 % solution 30 mL IMG ONCE PRN Last OCT action: Given - by RADHA FOREMAN on 07/02/18 at 0524 ANKIERRA 07/02/18 0400 07/02/18 0310 potassium chloride 10 mEq/100 mL IVPB (Peripheral Line) EVERY HOUR Last OCT action: New Bag - by RADHA FOREMAN on 07/02/18 at 0515 KOTOB, HELA 07/02/18 0345 07/02/18 0330 piperacillin-tazobactam (ZOSYN) 4.5 g in dextrose 100 mL IVPB (premix) ONCE Last OCT action: New Bag - by RADHA FOREMAN on 07/02/18 at 0349 KOTOB, HELA 07/02/18 0330 07/02/18 0327 HYDROmorphone (DILAUDID) injection 1 mg ONCE Last OCT action: Given - by RADHA FOREMAN on 07/02/18 at 0349 KOTOB, HELA 07/02/18 0115 07/02/18 0104 0.9 % sodium chloride IV bolus 1,932 mL ONCE Last OCT action: Stopped - by RADHA FOREMAN on 07/02/18 at 0230 SEAN POWELL 07/02/18 0115 07/02/18 0107 HYDROmorphone (DILAUDID) injection 1 mg ONCE Last OCT action: Given - by RADHA FOREMAN on 07/02/18 at 0147 SEAN POWELL Critical care time: At least 35 min of critical care time was spent with pt, this does not include any separately billable procedure time. Final Impression 1. Intra-abdominal abscess (HCC) DISPOSITION Admitted 07/02/2018 04:25:52 AM (Please note that portions of this note may have been completed with a voice recognition program. Efforts were made to edit the dictations but occasionally words are mis-transcribed.) Eloisa Vaughan, DO [facility] [employer] Eloisa Vaughan DO 07/02/18 0734 ED PROVIDER NOTE Observed: 07/02/2018 Status: F Source: [facility] 12:02 AM SYSTEM REPOSITORY Emergency Department Encounter [facility] EMERGENCY DEPT Patient: Dahlia Marino : 1970 Date of Evaluation: 07/02/2018 ED Provider: BLAIR HOLDEN CNP As the EFE-eg-vragga, I performed a medical screening history and physical exam on this patient. HISTORY OF PRESENT ILLNESS In brief, Dahlia Marino is a 47 y.o. female that presents for abdominal crampy fevers chills. Has been going on for about a month has been following up with a primary care doctor from where they live. Treated with Flagyl 1.. There is concern for this because she is on [employer] per patient and family. They were at [facility] [facility] earlier this morning. Per report from family CT was done with oral contrast finding possible abscess below her liver. He was transferred [facility] without their knowledge. Family states they thought she was coming here. He was at [facility] day and that concerns about her care because they were dragging their feet. Did not feel safe there. Which transferred floors and repeat CTs were done. They left AGAINST MEDICAL ADVICE over there and brought patient here. Per report from she's been having on and off fevers that range up to over 103 and then come back down. Unsure why this is happening. Also has a history of fibromyalgia abdominal pain bowel resection due to Crohn's. Has not received her Humira recently nor her thyroid medication. Brought patient here for reevaluation and admission. Unknown febrile illness. Likely due to acute abdominal reasons. Obtaining records from previous hospital that she was at. PHYSICAL EXAM ED Triage Vitals [07/02/18 0024] Enc Vitals Group BP (!) 101/52 Pulse 95 Resp 18 Temp 99.5 ?F (37.5 ?C) Temp Source Oral SpO2 97 % Weight 142 lb (64.4 kg) Height 5' 4 (1.626 m) Head Circumference Peak Flow Pain Score Pain Loc Pain Edu? Excl. in GC? On brief exam, Sitting in bed abdomen is soft nondistended diffuse tenderness she is warm to touch but afebrile on measurement. We will initiate diagnostics/treatments as indicated and place in main ED as soon as available. BLAIR HOLDEN CNP [employer] BLAIR Holden CNP 07/02/18 0151 NURSING PROG Observed: 07/01/2018 Status: COMPLETED Source: [place] 11:34 PM [facility] REPOSITORY HNO ID: [id number] Author: Meme (Rn) EZEKIEL Ramsay Service: Emergency Medicine Author Type: Registered Nurse Type: Nursing Progress Note Filed: 07/01/2018 11:44 PM Note Text: Spoke with pt and family, both concerned that pt may be having a reaction to barium enema. Pt having muscle spasms, tearful. Pt very upset that she was still in pain, offered Toradol, morphine had not been given since 2019, due again at 0020. Pt's , son, and daughter at bedside. Maranda RN had spoke with Winter requesting Dilaudid per pt's request but physician unwilling to give this. I personally spoke with Winter Paez FORK REPAIRER, requested further order to check labs including electrolytes per family request and change Tylenol order to pr not po. Strongly suggested family stay and allow AB to be given, risk of leaving hospital and waiting in another ER to start admission process over could delay pt's care. Pt insisting upon leaving, CHINMAY Paez, informed and arrived to have sign AMA per pt's request. IV dc'd intact, - bleeding. PROGRESS Observed: 07/01/2018 Status: COMPLETED Source: [place] 11:15 PM [facility] HNO ID: [id number] Author: Jeannine (Clayton) BLAIR Womack.CLAYTON Service: (none) Author Type: Nurse Practitioner Type: Progress Notes Filed: 07/01/2018 11:51 PM Note Text: CTBS for patient requesting to leave AMA. Nursing supervisor extrusion on floor speaking with patient and family. Earlier in evening had received request for labs to be drawn at patient's request as she was concerned that her electrolytes were abnormal. Orders entered for CMP/CBC. Pt also requested that her tylenol be switched from PO to suppository. Order was changed to suppository. Pt requested that morphine be changed to dilaudid. She told RN that morphine does not work for her pain. Requesting dilaudid as this is the only thing that will work for her pain. Pt refusing to take toradol that is ordered. Encouraged nurse to offer pain medications that are ordered. Pt requesting to leave AMA. Had conversation with spouse and patient about risks of leaving AMA and encouraged patient to remain for completion of testing. Family is taking patient to [facility] ED at this time. Pt is alert and oriented x 3, capable of making decisions. AMA paperwork filled out and signed at bedside. Jeannine Womack CNP NURSING PROG Observed: 07/01/2018 Status: COMPLETED Source: [place] 9:25 PM CLINIC OTHER CAMPUS REPOSITORY HNO ID: [id number] Author: Ester (Rn) EZEKIEL Kamara Service: (none) Author Type: Registered Nurse Type: Nursing Progress Note Filed: 07/02/2018 12:15 AM Note Text: Unable to do head to toe assessment, because pt didn't allow and requesting dilaudid instead of morphine for her pain. Also pt wanted to have her tylenol changed from PO to rectal because she believes that PO meds don't work given her GI issues. . Vitals checked, her temperature was 38.6 C. Around 8pm while she was on 4100, temp was higher at 39.2 and she was given PO tylenol. Pt was told that fever is coming down and we will be monitoring it. I called [employer] and communicated pt's requests and updates. CT ABDOMEN AND PELVIS Observed: 07/01/2018 Status: F Source: [facility] WITH CONTRAST 8:57 PM HEALTH SYSTEM REPOSITORY Performed at [facility] APPROVED BY: Zia Maurer MD Exam Title: CT OF THE ABDOMEN AND PELVIS WITH INTRAVENOUS CONTRAST EXAM DATE:07/01/2018 20:46 Clinical Indication/History: 47-year-old with history of Crohn's disease presenting with abdominal pain and leukocytosis. COMPARISON: None Technique: A CT of the abdomen and pelvis With Intravenous contrast. Contrast: 150 mL IV Omnipaque 300. Also, 450 cc of oral Redicat was given. CT Dose-Length Product: 356 mGy*cm CT Dose Reduction Employed: 1. Automated exposure control (AEC) was used. FINDINGS: CHEST BASE:Normal LIVER: Along the periphery of the high right hepatic lobe, there is a 6 mm cyst. Otherwise, the liver appears normal. BILIARY TRACT AND GALLBLADDER: The gallbladder is not seen and is presumably surgically absent. There is no significant biliary ductal dilatation. PANCREAS:Normal SPLEEN:Normal ADRENAL GLANDS:Normal KIDNEYS AND RENAL COLLECTING SYSTEMS:Normal LYMPH NODES AND RETROPERITONEUM:Normal VESSELS:Normal GI TRACT AND MESENTERY: There is a right lower quadrant mesenteric mass. This has poorly defined margins as well as extensive fat stranding surrounding it suggesting an inflammatory mass. At its wides t point, this measures 3.9 x 4.2 cm. Small pockets of internal fluid are noted. The findings suggest coalescent phlegmon/early abscess development. Since this does not have clearly define oropeza, this may not respond well to percutaneous drainage. This lesion is in intimate contact with a suture line at the right lower quadrant which appears to be related to right hemicolectomy and ileocolic anasto mosis. Given the patient's history of Crohn's disease, this most likely represents inflammatory mass secondary to Crohn's. There is no associated high-grade obstruction although there is slight dilata tion of bowel that is likely secondary to ileus. No extraluminal gas is identified. SOFT TISSUES AND MUSCULOSKELETAL:Normal BLADDER:Normal PELVIC ORGANS: Hysterectomy IMPRESSION: Inflammatory appearing mass at the right lower quadrant in contact with the ileocolic anastomosis. The appearance is most compatible with coalescent phlegmon. It does not exhibit well-defi kasi oropeza and may not respond well to percutaneous drainage although there are small pockets of internal fluid. Continued follow-up is advised. CONSULT Observed: 07/01/2018 Status: COMPLETED Source: [place] 4:02 PM [facility] REPOSITORY [facility] ID: [id number] Author: Misty Mcdonald Service: General Surgery Author Type: Resident Type: Consults Filed: 07/01/2018 9:06 PM Note Text: Attestation signed by Nick Montenegro at 07/02/2018 11:47 AM Management per GI and radiology No surgery intervention required Nick Montenegro MD July 02, 2018 CONSULT: EMERGENCY GENERAL SURGERY SERVICE SERVICE DATE: 07/01/2018 SERVICE TIME: 4:25 PM REASON FOR CONSULT: RLQ intraabdominal abscess REQUESTING PHYSICIAN: Dr. Altamirano PRIMARY CARE PHYSICIAN: No primary care provider on file. Subjective Ms. Marino is a 47 year old female with Crohn's with multiple flares, multiple SBRs, partial liver resection, who presents for abdominal pain that began 5 weeks ago. Patient was seen for said pain a few weeks ago at outside ED where she was given Flagyl for her pain which helped initially but the pain eventually returned and got worse. Patient presented to [place] ED where CT Abd/Pelvis showed a possible abscess vs neoplasm (~4cm in size). SHe endorses fevers, chills, nausea, abdominal pain during this time. She denies ay SOB, CP, hematemesis, hematochezia. She states she has had a 25lb weight loss in the past month due to inability to eat and increased diarrhea. She normally has diarrhea with her Corhns and takes Humira weekly (last dose was 2 weeks ago). Last colonoscopy was 7 years ago per patient and she does not recall any biopsies. She states her other surgeries were MAXIMILIANO and appy. CT Abdomen/Pelvis: Complex inflammatory collection or mass in the anterior RLQ may represent abscess of neoplasm. Lesion measures 4.3 x 3.8 cm. No evidence of bowel obstruction, hernia, or free air or fluid. No evidence of appendicitis. No hydronephrosis. No other inflammatory process. Visualized lung bases clear. PAST MEDICAL HISTORY Diagnosis Date - Abdominal pain 07/01/2018 - Crohn disease (HCC) 07/01/2018 - Hypothyroid 07/01/2018 - Sepsis (HCC) 07/01/2018 - Tobacco abuse 07/01/2018 No past surgical history on file. FAMILY HISTORY Problem Relation Age of Onset - other (htn) Mother - other (htn) Father Social History Substance Use Topics - Smoking status: Former Smoker - Smokeless tobacco: Current User Comment: vapes every day - Alcohol use No No prescriptions prior to admission. Current hospital medications: enoxaparin 40 mg injection (LOVENOX) 40 mg SUBCUTANEOUS DAILY 0.9% NaCl 3-5 mL 3-5 mL INTRAVENOUS q 12 H NaCl 0.9% iv infusion 100 mL/hr INTRAVENOUS CONTINUOUS aluminum-magnesium hydroxide-simethicone 200-200-20 mg/5 mL 30 mL (MAALOX,MYLANTA,MAG-AL PLUS) 30 mL ORAL DAILY PRN ondansetron 4 mg tab(s) (ZOFRAN) 4 mg ORAL q 6 H PRN ondansetron (PF) 4 mg injection (ZOFRAN) 4 mg INTRAVENOUS q 6 H PRN docusate sodium 100 mg cap(s) (COLACE) 100 mg ORAL BID PRN acetaminophen 650 mg tab(s) (TYLENOL) 650 mg ORAL q 6 H PRN morphine 2-4 mg injection 2-4 mg INTRAVENOUS q 4 H PRN ketorolac 15 mg injection (TORADOL) 15 mg INTRAVENOUS q 6 H PRN piperacillin-tazobactam 3.375 g in dextrose (iso-osmotic) 50 mL (ZOSYN) 3.375 g INTRAVENOUS q 8 H Allergies As of Date: 07/01/2018 Allergen Noted Reaction DOXYCYCLINE 07/01/2018 Shortness of Breath FLAGYL [METRONIDAZOLE] 07/01/2018 Intolerance ZITHROMAX [AZITHROMYCIN] 07/01/2018 Shortness of Breath Fully Assessed 07/01/2018 COMPLETE REVIEW OF SYSTEMS: as per HPI Objective PHYSICAL EXAM: Physical Exam Performed: GENERAL: Alert, Mild Distress, Cooperative EYES: EOMI NECK: Supple LUNGS: Unlabored breathing on RA CARDIAC: Rhythm: regular rate and rhythm ABDOMEN: soft, nondistended, mod TTP diffusely, no peritoneal signs EXTREMITIES: Normal exam of the extremities NEURO: Grossly normal cognition, motor function, and cranial nerves III-XII BP 92/45 Pulse 91 Temp (Src) 99.1 (Oral) Resp 18 Ht 5' 4.173 (1.63m) Wt 145 lb 4 oz (65.9kg) SpO2 94% BMI 24.80 kg/(m2). DATA: Diagnostic tests reviewed for today's visit: Most recent labs and imaging results. CBC: Recent Labs 07/01/18 1155 WBC 9.63 RBC 3.77* HB 12.0 HCT 36.8 PLT 314 MCV 97.6* MCH 31.8 MPV 9.8 RDW 12.0 Coags: Recent Labs 07/01/18 1155 INR 1.14 APTT 29.5 BMP: Recent Labs 07/01/18 1155 NA 137 K 4.0 CHLOR 107 CO2 22 BUN 4* CREAT 0.61 GLUC 74 Liver Function, Amylase, Lipase: Recent Labs 07/01/18 1155 TPROT 6.9 ALB 2.4* ALT 68 AST 102* ALKPHOS 255* TBILI 0.8 Impression/Recommendations 47 year old female with Crohns with history of multiple flares, multiple SBR, partial liver excision due to flares presenting with suspected abscess vs malignancy - Malignancy seems unlikely given initial leukocytosis of 13.6 and fevers at admission to OSH - Medical management per primary - Abx per primary - Would recommend drainage if possible, will order drain if IR deems able to access area - GI on board, recs for Crohns management and colonoscopy Discussed with Dr. Tiny MD Emergency General Surgery Service Pager: For questions or concerns Mon-Fri 6a-5p please page [phone]. After 5pm and on Weekends and Holidays, please page [phone] if in ICU or [phone] if on RNF. SIGNATURE: Misty Mcdonald MD PATIENT NAME: Dahlia Marino DATE: July 01, 2018 TIME: 4:02 PM PAGER: above CONSULT PROG Observed: 07/01/2018 Status: COMPLETED Source: [place] 3:57 PM CLINIC OTHER CAMPUS REPOSITORY O ID: [id number] Author: Kmaran Colon Service: Gastroenterology Author Type: Nurse Practitioner Type: Consult Progress Note Filed: 07/01/2018 4:37 PM Note Text: CONSULT: GASTROENTEROLOGY SERVICE SERVICE DATE: 07/01/2018 SERVICE TIME: 3:58 PM REASON FOR CONSULT: Abdominal mass vs abscess REQUESTING PHYSICIAN: Winter PRIMARY CARE PHYSICIAN: No primary care provider on file. Subjective Ms. Marino is a 47 year old female with Crohn's disease s/p multiple bowel resection (last one 8 yrs ago per patient) who presented to the [place] ED for abdominal pain. She stated she was taking Flagyl for BV about 3-4 weeks ago which her abdominal pain started 2 days after starting the medication. She described the pain as intestines stripped out of me. The pain was constant rated 10/10 now 5/10 without radiation. She had nausea without vomiting associated with the pain. Her pain wasn't resolving so she called EMS who transferred her to [facility]. In the ED her abdominal CT revealed possible abscess vs neoplasms so she was transferred to [facility]. She denied melena, hematochezia, hematemesis, and constipation. She stated she's having diarrhea about 4-15 times daily (which is her normal). She also had fever and chills with her temperature 100.9 at home. She also stated she loss about 28lbs in about a month. She couldn't remember her last exacerbation of her Crohn's or symptoms for typical flair ups. She's under Dr. Vladislav wang (patient stated) which she's taking Humira. Her last dose was about 2 weeks ago. She stated her last colonoscopy was about 3-4 years ago (no record in [facility]). FUNCTIONAL STATUS: Independent PAST MEDICAL HISTORY Diagnosis Date - Abdominal pain 07/01/2018 - Crohn disease (HCC) 07/01/2018 - Hypothyroid 07/01/2018 - Sepsis (HCC) 07/01/2018 - Tobacco abuse 07/01/2018 No past surgical history on file. FAMILY HISTORY Problem Relation Age of Onset - other (htn) Mother - other (htn) Father Social History Substance Use Topics - Smoking status: Former Smoker - Smokeless tobacco: Current User Comment: vapes every day - Alcohol use No No prescriptions prior to admission. Current hospital medications: enoxaparin 40 mg injection (LOVENOX) 40 mg SUBCUTANEOUS DAILY 0.9% NaCl 3-5 mL 3-5 mL INTRAVENOUS q 12 H NaCl 0.9% iv infusion 100 mL/hr INTRAVENOUS CONTINUOUS aluminum-magnesium hydroxide-simethicone 200-200-20 mg/5 mL 30 mL (MAALOX,MYLANTA,MAG-AL PLUS) 30 mL ORAL DAILY PRN ondansetron 4 mg tab(s) (ZOFRAN) 4 mg ORAL q 6 H PRN ondansetron (PF) 4 mg injection (ZOFRAN) 4 mg INTRAVENOUS q 6 H PRN docusate sodium 100 mg cap(s) (COLACE) 100 mg ORAL BID PRN acetaminophen 650 mg tab(s) (TYLENOL) 650 mg ORAL q 6 H PRN morphine 2-4 mg injection 2-4 mg INTRAVENOUS q 4 H PRN ketorolac 15 mg injection (TORADOL) 15 mg INTRAVENOUS q 6 H PRN piperacillin-tazobactam 3.375 g in dextrose (iso-osmotic) 50 mL (ZOSYN) 3.375 g INTRAVENOUS q 8 H Allergies As of Date: 07/01/2018 Allergen Noted Reaction DOXYCYCLINE 07/01/2018 Shortness of Breath FLAGYL [METRONIDAZOLE] 07/01/2018 Intolerance ZITHROMAX [AZITHROMYCIN] 07/01/2018 Shortness of Breath Fully Assessed 07/01/2018 COMPLETE REVIEW OF SYSTEMS: PAIN ASSESSMENT: CURRENTLY HAVING PAIN; see HPI GENERAL: Unintentional weight loss (28 lbs in one month per patient), fever, and chills RESPIRATORY: Negative for cough, hemoptysis, wheezing, COPD, dyspnea or shortness of breath CARDIOVASCULAR: Negative for chest pain, leg swelling, hypertension, CHF or palpitations GI: See HPI SKIN: Negative for lesions, rash, and itching HEMATOLOGY/LYMPHOLOGY: Negative for prolonged bleeding, bruising easily or swollen nodes NEURO: No history of headaches, syncope, paralysis, seizures or tremors Objective PHYSICAL EXAM: Physical Exam Performed: GENERAL: Alert and oriented X 3 in no distress, cooperative and following commands SKIN: Skin warm and dry LUNGS: Lungs clear to auscultation, even and unlabored on RA CARDIAC: Normal S1 and S2; without rubs, murmurs, or gallops ABDOMEN: Abdomen soft with + BS X 4 with generalized abdominal tenderness without guarding, rebound, or distention EXTREMITIES: PAYTON X 4 without edema PULSES: 2+ radial BP 92/45 Pulse 91 Temp (Src) 99.1 (Oral) Resp 18 Ht 5' 4.173 (1.63m) Wt 145 lb 4 oz (65.9kg) SpO2 94% BMI 24.80 kg/(m2). DATA: Diagnostic tests reviewed for today's visit: Ref. Range 07/01/2018 11:55 Sodium Latest Ref Range: 136 - 145 mEq/L 137 Potassium Latest Ref Range: 3.5 - 5.1 mEq/L 4.0 Chloride Latest Ref Range: 98 - 107 mEq/L 107 CO2 Latest Ref Range: 21 - 32 mEq/L 22 BUN Latest Ref Range: 7 - 18 mg/dL 4 (L) Creatinine Latest Ref Range: 0.51 - 0.95 mg/dL 0.61 Glucose Latest Ref Range: 70 - 99 mg/dL 74 Protein, Total Latest Ref Range: 6.4 - 8.2 g/dL 6.9 Calcium Latest Ref Range: 8.5 - 10.1 mg/dL 7.8 (L) Phosphorus Latest Ref Range: 2.5 - 4.9 mg/dL 3.8 Albumin Latest Ref Range: 3.4 - 5.0 g/dL 2.4 (L) Bilirubin, Total Latest Ref Range: 0.2 - 1.0 mg/dL 0.8 Alkaline Phosphatase Latest Ref Range: 46 - 116 U/L 255 (H) ALT Latest Ref Range: 12 - 78 U/L 68 AST Latest Ref Range: 9 - 37 U/L 102 (H) Anion Gap Latest Ref Range: 8 - 16 12 eGFR Latest Ref Range: >60mL/min/1.73m2 >60 Ref. Range 07/01/2018 11:55 WBC Latest Ref Range: 3.98 - 10.04 thou/cmm 9.63 RBC Latest Ref Range: 3.93 - 5.22 mil/cmm 3.77 (L) HGB Latest Ref Range: 11.2 - 15.7 g/dL 12.0 Hematocrit Latest Ref Range: 34.1 - 44.9 % 36.8 Platelet Count Latest Ref Range: 182 - 369 thou/cmm 314 Ref. Range 07/01/2018 11:55 CRP Latest Ref Range: 0.00 - 0.30 mg/dL 8.04 (H) Ref. Range 07/01/2018 11:55 Sed Rate, Westergren Latest Ref Range: 0 - 20 mm/hr 38 (H) Abdominal CT at OSH on 07/01/18: Impression: Complex inflammatory collection or mass in anterior RLQ may represent abscess or neoplasm. Lesion measures 4.3 X 3.8 cm. No bowel obstruction, hernia, free air, or free fluid. No evidence of appendicitis, hydronephrosis, or other inflammatory process. Impression/Recommendations 1). Abdominal mass vs abscess-noted on OSH CT, leukocytosis 13.6 at OSH now WNL when admitted, 28 lbs weight loss in one month (per patient), low grade fever at home (100.9), on Zosyn, last colonoscopy per patient 3-4 years ago (no record in [facility]) Assessment AND Plan: Repeat Abdominal CT with IV/PO contrast and CEA. 2). Abdominal pain-? 2/2 # 1 vs Crohn's exacerbation, CRP 8.04 and sed rate 38 Assessment AND Plan: Await abdominal CT results and analgesics 3). Crohn disease s/p bowel resection-? exacerbation, taking Humira (last dose 2 weeks ago per patient), CRP 8.04 and sed rate 38, non bloody stools, last colonoscopy per patient 3-4 years ago (no record in [facility]) Assessment AND Plan: Need records from [facility] Dr. Loomis in [place]. SIGNATURE: Kamran Colon APRN.CNP PATIENT NAME: Dahlia Marino DATE: July 01, 2018 TIME: 3:57 PM PAGER: NUTRITION Observed: 07/01/2018 Status: COMPLETED Source: [place] 3:47 PM CLINIC OTHER CAMPUS REPOSITORY HNO ID: [id number] Author: Argentina Zuluaga RD (Ld) Service: Nutrition Therapy Author Type: Registered Dietitian Type: Nutrition Filed: 07/01/2018 4:31 PM Note Text: NUTRITION THERAPY INITIAL ASSESSMENT SERVICE DATE: 07/01/2018 SERVICE TIME: 3:20 PM RECOMMENDED MALNUTRITION DIAGNOSIS: SEVERE PROTEIN-CALORIE MALNUTRITION In the context of Acute Illness or Injury based on: Unintentional Weight Loss: >5% over 1 month Insufficient Energy Intake: less than or equal to 50% for greater than or equal to 5 days Subcutaneous Fat Loss: Mild Loss Muscle Loss Mild Loss NUTRITION CARE PLAN: Problem, Etiology and Signs/Symptoms: Suboptimal protein/energy intake related to GI complications of nausea,diarrhea, intermittent abdomen pain as evidenced by unintentional weight loss over past month, poor po intake per patient interview and chart documentation Intervention: 1. Continue diet of full liquids- was regular, and antiemetic medication 2. Patient to trial for supplements : Ensure Clear Juice-BID to provide 240 kcal and 8 gm protein per serving and vanilla Boost [facility] QD, to provide 530 kcal and 22 gm protein -per pt unable to tolerate in past month Ensure Shake, Yogurt, and probiotics--causes her more diarrhea 3. Monitor diet progression and follow for GI recommendations 4. If patient unable to tolerate PO may need to consider alternate route of nutrition,, may need to consider TPN Monitor and Evaluation: Goal: Meet >75% of estimated needs Monitor fluid/electrolyte balance Monitor labs, I/Os, vital signs, weight Monitor diet progression Discharge Nutrition Recommendations: Diet: To be determined Supplements: Supplement of patient's choice-TID with poor po intake and GI complications occur to support nutritional status Reason for Assessment: Consult from [facility] for patient with 28 lbs weight loss in 4 weeks. Per HPI: This is a 47 year old female with PMH of crohns, hypothyroid, wallace, ape, liver sx d/t infection who presents to the [facility] from [facility]. Pt called EMS and had them take her to the hospital d/t diffuse abdominal pain. Pt has been experiencing this abdominal pain for the past 6 weeks. Intermittent abdominal pain is getting worse. Pt describes as 'sharp, stabbing and ripping sensation'. Pt has not been able to eat and states she has lost 28 lbs over the past 4 weeks. Food makes the abdominal pain worse. Pt endorses severe nausea, no emesis, and chronic diarrhea. Pt states she has been having multiple bouts of diarrhea daily. Pt was recently on Flagyl. Pt endorses fevers for the past few days. Pt has been diaphoretic and has been having night sweats, as well. Pt states she has been lightheaded and dizzy. Pt denies any cp or SOB. Pt had a hysterectomy at 22 years old. In ED, pt had CT scan of abdomen. Pt was given pain medications, antiemetics, zosyn and IVF. Pt is very tearful and appears distressed d/t abdominal pain. ACTIVE PROBLEM LIST Sepsis (Hcc) Abdominal Pain Hypothyroid Crohn Disease (Hcc) Tobacco Abuse PAST MEDICAL HISTORY Diagnosis Date - Abdominal pain 07/01/2018 - Crohn disease (HCC) 07/01/2018 - Hypothyroid 07/01/2018 - Sepsis (HCC) 07/01/2018 - Tobacco abuse 07/01/2018 No past surgical history on file. Current Diet Order DIET LIQUID Order Specific Question: Liquid Diet Answer: FULL LIQUID Supplement 1 Frequency: 1. BREAKFAST; 5. DINNER Supplement 2 Frequency: 3. LUNCH Supplement 1: ENSURE CLEAR MIXED PEREZ Supplement 2: BOOST [facility] Lines and Drains: Peripheral 07/01/18 1000 Admission to Hospital Short Left Forearm 22 Gauge (Active) Met with patient and reports only being able to consume juices, crackers, soups, and jello for past 3-4 weeks related to nausea. Per patient was using Ensures and eating yogurts, and using probiotic pill, every day, but since finished antibiotic 3-4 weeks ago, has not been able to tolerate them for past 3-4 weeks. They were causing her more diarrhea. She has had diarrhea for past 20 years related to Crohn's disease and ulcerative colitis. Some days diarrhea is worse than others for her. Nutritional Intake Prior to Admission: <50% estimated energy need over the past 1 month(s). Today at lunch had chicken noodle soup, some jello and 2 packages of crackers. GI symptoms: nausea, abdominal pain and diarrhea Nutrition Abdominal Exam: and abdomen is distended, and tender ANTHROPOMETRICS Height: 163 cm (5' 4.17) Admission Weight: 65.9 kg (145 lb 4 oz) Current Weight: 65.9 kg (145 lb 4 oz) Body mass index is 24.8 kg/m?. normal Weight has decreased by 11.4 kg over 1 months representing 14.7 % weight change clinically significant Per patient UBW is ~ 170 lbs ( 77.3 kg)- 1 month ago No prior weight history for patient Last Wt 07/01/18 : 65.9 kg (145 lb 4 oz) Last 6 Encounter Wt Readings: Date: Wt: 07/01/2018 65.9 kg (145 lb 4 oz) Dosing Weight: 65.9 kg Resting Metabolic Rate: 1279 Estimated kilocalorie needs: 1977 kilocalories determined by 30 kcal/kg Estimated protein needs: 86-105 grams determined by 1.3-1.6 g/kg Current weight Estimated fluid needs: 1977 milliliters based on 1 mL per kcal NUTRITION FOCUSED PHYSICAL EXAM: Subcutaneous Fat Loss Orbital Mild Triceps No fat loss Mid-axillary at the iliac crest Unable to determine at this time Muscle Loss Locations: Temporalis Mild Pectoralis Mild Deltoids Mild Interosseous Mild Latissimus dorsi, trapezius Mild Quadriceps Moderate Gastrocnemius Mild Potential micronutrient deficiency revealed in: Hair - easily pluckable Teeth - has upper dentures Edema: No Ascites: No Assessment of Functional Status: Able to do little activity and spend most of the day in bed or chair for a duration of 3-4 weeks Temperature Max in 24 hours: Temp (24hrs), Av.7 ?C (99.8 ?F), Min:37.3 ?C (99.1 ?F), Max:38 ?C (100.4 ?F) BP (!) 92/45 Pulse 91 Temp 37.3 ?C (99.1 ?F) (Oral) Resp 18 Ht 163 cm (5' 4.17) Wt 65.9 kg (145 lb 4 oz) SpO2 94% BMI 24.80 kg/m? Recent Labs 07/01/18 1155 GLUC 74 BUN 4* CREAT 0.61 NA 137 K 4.0 CHLOR 107 CO2 22 ALB 2.4* P 3.8 CRP 8.04* HB 12.0 HCT 36.8 WBC 9.63 Potential Signs of Inflammation: hypoalbuminemia and high CRP, dx of sepsis, on antibiotics,stool cultures ordered, has fever and chronic condition of ulcerative colitis and crohn's ALLERGIES Allergen Reactions - Doxycycline Shortness of Breath - Flagyl [Metronidazo* Intolerance - Zithromax [Azithrom* Shortness of Breath Current Facility-Administered Medications: enoxaparin 40 mg injection (LOVENOX) 40 mg SUBCUTANEOUS DAILY 0.9% NaCl 3-5 mL 3-5 mL INTRAVENOUS q 12 H NaCl 0.9% iv infusion 100 mL/hr INTRAVENOUS CONTINUOUS aluminum-magnesium hydroxide-simethicone 200-200-20 mg/5 mL 30 mL (MAALOX,MYLANTA,MAG-AL PLUS) 30 mL ORAL DAILY PRN ondansetron 4 mg tab(s) (ZOFRAN) 4 mg ORAL q 6 H PRN Or ondansetron (PF) 4 mg injection (ZOFRAN) 4 mg INTRAVENOUS q 6 H PRN docusate sodium 100 mg cap(s) (COLACE) 100 mg ORAL BID PRN acetaminophen 650 mg tab(s) (TYLENOL) 650 mg ORAL q 6 H PRN morphine 2-4 mg injection 2-4 mg INTRAVENOUS q 4 H PRN ketorolac 15 mg injection (TORADOL) 15 mg INTRAVENOUS q 6 H PRN piperacillin-tazobactam 3.375 g in dextrose (iso-osmotic) 50 mL (ZOSYN) 3.375 g INTRAVENOUS q 8 H iv contrast (radiology procedure) INTRAVENOUS DIRECTED PRN And enteric contrast (radiology procedure) ORAL DIRECTED PRN Date 06/30/18 1500 - 07/01/18 0659(Not Admitted) 07/01/18 0700 - 07/02/18 0659 Shift 6684-8796 5928-4440 24 Hour Total 5712-8014 5272-5385 0667-6649 24 Hour Total I N T A K E PO 120 120 PO 120 120 Shift Total 120 120 O U T P U T Urine Urine Not Saved. 1 x 1 x Shift Total Weight (kg) 65.9 65.9 65.9 65.9 Vitamin and Mineral Labs in the past year:No results for input(s): CHROMIUM, COPPER, MANGANESE, SELENIUM, VITAMINA, VITB1, VITB2, VITB6, B12, METHYLMAL, VITD25, VITAMINE, VITAK, ZINC, TIBC, FE, JOSÉ LUIS in the last 8784 hours. MNT Billing Type: Initial Assess/15 min 4 units SIGNATURE: SANDOVAL Garcia PATIENT NAME: Dahlia Marino DATE: July 01, 2018 TIME: 4:25 PM PAGER: [phone] CEA Collected: 07/01/2018 Status: F Source: [facility] 1:55 PM HEALTH SYSTEM REPOSITORY TYPE CODE TESTS RESULT OUT OF RANGE REFERENCE UNITS LAB CEA(LOINC) 0.0-3.0 ng/mL CEA 2.5 Result Comment: The reference range shown is for adult non-smokers. The range for smokers is 0-5.0 Testing performed by Chemiluminescence LOCI. Performed By: #### CEA #### [place] [address] MAGNESIUM BLOOD Collected: 07/01/2018 Status: F Source: [facility] 1:55 PM HEALTH SYSTEM REPOSITORY TYPE CODE TESTS RESULT OUT OF REFERENCE UNITS RANGE LAB MAG(LOINC) 1.6-2.6 mg/dL Magnesium Blood 1.6 Performed By: #### MAG #### [place] [address] Observed: 07/01/2018 Status: F Source: [facility] CULT BLOOD 12:00 PM HEALTH SYSTEM REPOSITORY Test performed at [facility] No growth Performed By: #### C_BLO #### [place] [address] HEMOGRAM Collected: 07/01/2018 Status: F Source: [facility] 11:55 AM HEALTH SYSTEM REPOSITORY TYPE CODE TESTS RESULT OUT OF REFERENCE UNITS RANGE LAB WBC(LOINC) 3.98-10.04 thou/cmm WBC 9.63 LAB RBC(LOINC) 3.93-5.22 mil/cmm Low RBC 3.77 LAB HGB(LOINC) 11.2-15.7 g/dL Hgb 12.0 LAB HCT(LOINC) 34.1-44.9 % Hct 36.8 LAB MCV(LOINC) 79.4-94.8 fl High MCV 97.6 LAB MCH(LOINC) 25.6-32.2 pg MCH 31.8 LAB MCHC(LOINC) 31.6-34.8 % MCHC 32.6 LAB RDW(LOINC) 11.7-14.4 % RDW 12.0 LAB RDWSD(LOINC 36.4-46.3 fl ) RDW SD 43.2 LAB PLT(LOINC) 182-369 thou/cmm Platelet 314 LAB MPV(LOINC) 9.4-12.3 fl MPV 9.8 Performed By: #### CBC1 #### [place] [address] LACTIC ACID Collected: 07/01/2018 Status: F Source: [facility] 11:55 AM HEALTH SYSTEM REPOSITORY TYPE CODE TESTS RESULT OUT OF REFERENCE UNITS RANGE LAB LAC(LOINC) 0.4-2.0 mEq/L Lactic Acid 0.4 Performed By: #### LAC #### [place] [address] PHOSPHORUS BLOOD Collected: 07/01/2018 Status: F Source: [facility] 11:55 AM HEALTH SYSTEM REPOSITORY TYPE CODE TESTS RESULT OUT OF REFERENCE UNITS RANGE LAB PHOS(LOINC 2.5-4.9 mg/dL ) Phosphorus Blood 3.8 Performed By: #### PHOS #### [place] [address] CRP Collected: 07/01/2018 Status: F Source: [facility] 11:55 AM HEALTH SYSTEM REPOSITORY TYPE CODE TESTS RESULT OUT OF RANGE REFERENCE UNITS LAB CRP3(LOINC) 0.00-0.30 mg/dL High CRP 8.04 Performed By: #### CRP3 #### [facility] [address] [place] [address] COMPREHENSIVE PANEL Collected: 07/01/2018 Status: F Source: [facility] 11:55 AM HEALTH SYSTEM REPOSITORY TYPE CODE TESTS RESULT OUT OF REFERENCE UNITS RANGE LAB NA(LOINC) 136-145 mEq/L Sodium Blood 137 LAB K(LOINC) 3.5-5.1 mEq/L Potassium Blood 4.0 Result Comment: SPECIMEN SLIGHTLY HEMOLYZED LAB CL(LOINC) 98-107 mEq/L Chloride Blood 107 LAB CO2(LOINC) 21-32 mEq/L CO2 Blood 22 LAB GLU(LOINC) 70-99 mg/dL Glucose Blood 74 LAB BUN(LOINC) 7-18 mg/dL BUN Blood Low 4 LAB CREA(LOINC) 0.51-0.95 mg/dL Creatinine Blood 0.61 LAB CA(LOINC) 8.5-10.1 mg/dL Calcium Low Blood 7.8 LAB ALB(LOINC) 3.4-5.0 g/dL Albumin Low Blood 2.4 LAB TP(LOINC) 6.4-8.2 g/dL Total Protein 6.9 LAB AST(LOINC) 9-37 U/L AST-SGOT High Blood 102 Result Comment: SPECIMEN SLIGHTLY HEMOLYZED LAB ALT(LOINC) 12-78 U/L ALT-SGPT Blood 68 LAB ALKP(LOINC) 46-116 U/L Alk High Phosphatase 255 LAB BILIT(LOINC) 0.2-1.0 mg/dL Total Bilirubin 0.8 LAB ANGAP(LOINC) 8-16 Anion Gap 12 Performed By: #### P14 #### [place] [address] MDRD GFR Collected: 07/01/2018 Status: F Source: [facility] 11:[facility] REPOSITORY TYPE CODE TESTS RESULT OUT OF RANGE REFERENCE UNITS LAB GFRFN(LOINC >60mL/min/1.73m ) 2 eGFR >60 Result Comment: If the patient is , multiply the result by 1.210. Performed By: #### GFR #### [facility] [address] [place] [id number] PROTIME Collected: 07/01/2018 Status: F Source: [facility] 11:[address] [place] [address] SYSTEM REPOSITORY TYPE CODE TESTS RESULT OUT OF REFERENCE UNITS RANGE LAB PTI(LOINC) 9.7-13.0 sec Prothrombin Time 11.7 LAB INR(LOINC) 0.90-1.30 INR 1.14 Result Comment: Note: Reference Range Change Vitamin K Antagonist (VKA) Therapeutic Range: INR 2 to 3 (Target INR of 2.5) Note: For patients treated with VKA drugs, such as warfarin, the [place] [employer] 2012 Guideline recommends a therapeutic INR range of 2 to 3 (target INR of 2.5). This recommendation includes high-risk patients with antiphospholipid syndrome with previous arterial or venous thromboembolism, current-generation mechanical or bioprosthetic aortic heart valve replacement. VKA Therapeutic Range for some Mechanical Valve Replacement: INR 2.5 to 3.5 (Target INR of 3) Note: Patients with mechanical aortic valve replacement and additional risk factors for thromboembolic events (atrial fibrillation, previous thromboembolism, LV dysfunction, hypercoagulable conditions) or an older generation mechanical AVR (i.e., ball in-Cage) or any mechanical MVR should have a INR therapeutic range of 2.5 to 3.5 target INR of 3). Evelyn GH, et al. Chest 2012; 141:7S-47S Rogelio RICHMOND et al. JAC 2017; 70: 252-289 Performed By: #### PT #### [place] [address] ACTIVATED PTT Collected: 07/01/2018 Status: F Source: [facility] 11:[address] [place] [address] SYSTEM REPOSITORY TYPE CODE TESTS RESULT OUT OF REFERENCE UNITS RANGE LAB APTT(LOINC 23.0-32.4 sec ) Activated PTT 29.5 Result Comment: Note: New Reference Range Unfractionated Heparin Therapeutic Ranges: Standard Heparin Nomogram: 53 to 78 seconds (anti-Xa level of 0.3 to 0.7 U/mL) Low Dose/ACS Nomogram: 49 to 67 seconds (anti-Xa level of 0.2 to 0.5 U/mL) Stroke Treatment Nomogram: 49 to 67 seconds (anti-Xa level of 0.2 to 0.5 U/mL) Note: The APTT therapeutic range has been determined for the current lot of laboratory APTT reagent in use throughout the [facility]. Performed By: #### APTT #### [facility] [address] [place], [place] [address] SED RATE Collected: 07/01/2018 Status: F Source: [facility] 11:55 AM HEALTH SYSTEM REPOSITORY TYPE CODE TESTS RESULT OUT OF RANGE REFERENCE UNITS LAB ESR(LOINC) 0-20 mm/hr High Sed Rate 38 Performed By: #### ESR #### [facility] [address] [place], [place] [address] HISTORY PHYSICAL Observed: 07/01/2018 Status: COMPLETED Source: [place] 11:14 AM CLINIC OTHER CAMPUS REPOSITORY HNO ID: [id number] Author: Meryl Hogan Service: Hospital Medicine Author Type: Nurse Practitioner Type: HANDP Filed: 07/01/2018 11:50 AM Note Text: Attestation signed by Jose Altamirano at 2018 5:50 PM (Updated) I have personally seen and examined the patient. I agree with the EDGE STITCHER's note with following addition. Ms Marino, a 47 years old lady who has hx of UC and is on Humira Q week (last dose 2 weeks ago) under care of GI (? Dr Bender in [facility]) and multiple bowel surgeries including bowel resection, has abdominal pain for more than a month initially in lower part now generalized worse with food. Has fever in the last few days. Normal BM (reported diarrhea to [facility]), no nausea. Was treated with flagyl for a week a month ago. Last c scope > 5 years ago and last surgery > 5 years ago. She presented to [facility] where she was noted to have leukocytosis and complex inflammatory mass 4.3 cm x8 cm in RLQ abscess vs neoplasm. She was given Zosyn and sent here. On Exam: AAOriented. Not in distress Lips dry Lung clear, unlabored breathing S1 and S2 normal, no murmur Soft, tenderness in RLQ and mild in epigastrium and RUQ.no rebound No edema Lab reviewed Assessment: 1. RLQ mass likely abscess: less likely malignancy 2. Fever,abdominal pain and leukocytosis: sepsis due to above 3. 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 Dr Bender 4. Hx of multiple bowel surgeries including bowel resection. 5. Elevated ALP with normal bili and mildly elevated AST: Ct a/p did not comment on biliary system. Suspect this is due to sepsis. 6. Pyuria: r/o UTI 7. Severe protein calorie malnutrition. Recommendation: Agree with Zosyn. Morphine for pain control. Iv fluid Liquid diet Ua, Ucx, blood Cx, c diff and stool culture- already ordered. General surgery consult. Would need drainage- probably can be done by IR- defer to surgery to decide. Agree with GI consult. HISTORY AND PHYSICAL EXAMINATION SERVICE DATE: 07/01/2018 SERVICE TIME: 1130 PRIMARY CARE PHYSICIAN: No primary care provider on file. Subjective CHIEF COMPLAINT: Diffuse abdominal pain Is the patient having any pain or have any history of pain? CURRENTLY HAVING PAIN; Pt c/o diffuse abdominal pain that is more severe in RLQ and radiates throughout abdomen. HPI: This is a 47 year old female with PMH of crohns, hypothyroid, wallace, ape, liver sx d/t infection who presents to the [facility] from [facility]. Pt called EMS and had them take her to the hospital d/t diffuse abdominal pain. Pt has been experiencing this abdominal pain for the past 6 weeks. Intermittent abdominal pain is getting worse. Pt describes as 'sharp, stabbing and ripping sensation'. Pt has not been able to eat and states she has lost 28 lbs over the past 4 weeks. Food makes the abdominal pain worse. Pt endorses severe nausea, no emesis, and chronic diarrhea. Pt states she has been having multiple bouts of diarrhea daily. Pt was recently on Flagyl. Pt endorses fevers for the past few days. Pt has been diaphoretic and has been having night sweats, as well. Pt states she has been lightheaded and dizzy. Pt denies any cp or SOB. Pt had a hysterectomy at 22 years old. In ED, pt had CT scan of abdomen. Pt was given pain medications, antiemetics, zosyn and IVF. Pt is very tearful and appears distressed d/t abdominal pain. PAST MEDICAL HISTORY Diagnosis Date - Abdominal pain 07/01/2018 - Crohn disease (HCC) 07/01/2018 - Hypothyroid 07/01/2018 - Sepsis (HCC) 07/01/2018 - Tobacco abuse 07/01/2018 No past surgical history on file. FAMILY HISTORY Problem Relation Age of Onset - other (htn) Mother - other (htn) Father Social History Substance Use Topics - Smoking status: Former Smoker - Smokeless tobacco: Current User Comment: vapes every day - Alcohol use No No prescriptions prior to admission. ALLERGIES Allergen Reactions - Doxycycline Shortness of Breath - Flagyl [Metronidazo* Intolerance - Zithromax [Azithrom* Shortness of Breath COMPLETE REVIEW OF SYSTEMS: REVIEW OF SYSTEMS: PAIN ASSESSMENT: CURRENTLY HAVING PAIN; see HPI GENERAL: Unintentional weight loss, has lost 28 lbs in 4 weeks, fatigued, weak, dizzy HEENT: Negative for frequent or significant headaches, No changes in hearing or vision, no nose bleeds or other nasal problems RESPIRATORY: Negative for cough, hemoptysis, wheezing, COPD, dyspnea or shortness of breath CARDIOVASCULAR: Negative for chest pain, leg swelling, hypertension, CHF or palpitations GI: See HPI, severe nausea, diffused abdominal pain, 'sharp, stabbing ripping sensation', no emesis, severe diarrhea : No history of dysuria, frequency or incontinence, no hematuria MUSCULOSKELETAL: Negative for joint pain or swelling, back pain or muscle pain and fatigued and weak SKIN: Negative for lesions, rash, and itching, diaphoretic and night sweats NEURO: No history of headaches, syncope, paralysis, seizures or tremors and dizzy Objective PHYSICAL EXAM: Physical Exam Performed: GENERAL: Alert, Moderate Distress, Crying SKIN: Skin color, texture, turgor normal. No rashes or lesions. HEAD/SINUSES: No significant findings LUNGS: Lungs clear to auscultation, Good diaphragmatic excursion CARDIAC: Normal S1 and S2; no rubs, murmurs, or gallops ABDOMEN: TTP RLQ, diffuse pain throughout EXTREMITIES: Extremities normal, no deformities, edema, clubbing or skin discoloration. Good capillary refill., No ulcers NEURO: Gait normal. Reflexes normal and symmetric. Sensation grossly intact, Cranial nerves II-XII intact PULSES: 2+ radial, 2+ carotid BP 94/49 Pulse 100 Temp (Src) 100.4 (Oral) Resp 18 Ht 5' 4.173 (1.63m) Wt 145 lb 4 oz (65.9kg) SpO2 100% BMI 24.80 kg/(m2). DATA: Diagnostic tests reviewed for today's visit: Assessment/Plan Principal Problem: Sepsis (HCC) POA: Yes Assessment AND Plan: IVF, blood cultures, UA, tele, monitor lactate Abdominal pain: abscess vs tumor POA: Yes Assessment AND Plan: C/S GI, IVF, antiemetic, pain control, blood work, zosyn Diarrhea - r/o C-diff, stool culture, IVF Hypothyroid POA: Yes Assessment AND Plan: c/w home meds H/O Crohn disease (HCC) POA: Yes Assessment AND Plan: c/w home meds Tobacco abuse POA: Yes Assessment AND Plan: cessation education given DVT ppx - lovenox, SCDs FULL CODE D/W Dr. Tracey VTE Prophylaxis: VTE prophylaxis appropriate SIGNATURE: Meryl Hogan APRN.CNP PATIENT NAME: Dahlia Marino DATE: July 01, 2018 TIME: 11:15 AM PAGER: [phone] CT ABDOMEN/PELVIS W Observed: 07/01/2018 Status: F [facility]: [facility] 12:42 AM [place] [address] Patient: DAHLIA MARINO Phone#: : [phone] Age: 47 Gender: F Pt. Type: ER Account: [id number] Location: 2 Ordering: DOROTEO TABOR Exam Date: 07/01/2018/0:28 Family Phys: MARLO Pj LANG Charge Code: [id number] Physician: Weakley Order #: [id number] DLP Dose#: [id number] PROCEDURE: CT ABDOMEN/PELVIS WITH CONTRAST COMPARISON: None. INDICATIONS: Abdominal Pain TECHNIQUE: After obtaining the patient's consent, CT images were created with non-ionic intravenous contrast material. All CT scans at this facility use dose modulation, iterative reconstruction, and/or weight based dosing when appropriate to reduce radiation dose to as low as reasonably achievable. IV CONTRAST: Omnipaque 350,80ml TOTAL DOSE: 9.80 CTDIvol(mGy) FINDINGS: LIVER: No enlargement, atrophy, or significant focal lesion. Low-attenuation lesion in the right lobe of the liver measures are 0.6 cm, too small to characterize. BILIARY: The gallbladder is absent. PANCREAS: Normal. No lesion, fluid collection, ductal dilatation, or atrophy. SPLEEN: Normal. No enlargement or focal lesion. KIDNEYS: The kidneys enhance and excrete contrast symmetrically. No hydronephrosis. ADRENALS: Normal. No mass or enlargement. AORTA/VASCULAR: No aortic aneurysm. There are scattered atherosclerotic calcifications of the aorta and branch vessels. RETROPERITONEUM: Normal. No mass or adenopathy. BOWEL/MESENTERY: In the right lower quadrant adjacent to surgical anastomosis is a multiseptated enhancing heterogeneous fluid collection with surrounding inflammatory stranding. The collection measures 4.2 x 4.5 x 4.7 cm series 2 image 57. There is no evidence of bowel obstruction dilatation. Several loops of small bowel demonstrate air-fluid levels, likely reactive due to intra-abdominal inflammation. There is a liquidy stool seen throughout the remainder of the colon. The appendix is not visualized. Continued Report - Page 2 of 2 Patient: DAHLIA MARINO Phone#: : [phone] Age: 47 Gender: F Pt. Type: ER Account: [id number] Location: 052 Ordering: DOROTEO TABOR Exam Date: 07/01/2018/0:28 Family Phys: MARLO LANG Charge Code: [id number] Physician: Weakley Order #: [id number] DLP Dose#: [id number] ABDOMINAL WALL: Normal. No mass or hernia. URINARY BLADDER: Normal. No visible focal wall thickening, lesion, or calculus. PELVIC NODES: Normal. No adenopathy. PELVIC ORGANS: The uterus is absent; no adnexal masses. BONES: There are degenerative changes at L4-5. LUNG BASES: Normal. No visible pulmonary or pleural disease. OTHER: Negative. CONCLUSION: 1. Multiseptated complex collection in the right lower quadrant adjacent to anastomosis material. The appearance is most suggestive of a complex abscess, neoplasm is not excluded. Recommend followup to clearing to exclude neoplasm. Dictated by: Tracy Tomas MD on 07/01/2018 at 8:50 Approved by: Tracy Tomas MD on 07/01/2018 at 8:50 URINALYSIS Collected: 07/01/2018 Status: F Source: [facility] 12:34 AM [facility] REPOSITORY TYPE CODE TESTS RESULT OUT OF REFERENCE UNITS RANGE LAB URINALYSIS (LOINC) URINALYSIS Result Comment: URINALYSIS LAB Specimen Type(LOINC) Specimen Type Void LAB Color(LOINC) NORMAL: YELLOW Color YELLOW LAB Clarity(LOINC) NORMAL: CLEAR Clarity clear LAB ph(LOINC) NORMAL: 5.0-8.0 ph 5 LAB Protein(LOINC) NORMAL: NEGATIVE Protein NEG LAB Glucose(LOINC) NORMAL: NORMAL Glucose NORM LAB Ketone(LOINC) NORMAL: NEGATIVE Ketone Abnormal 50 LAB Bilirubin(LOINC) NORMAL: NEGATIVE Bilirubin NEG LAB Blood(LOINC) NORMAL: NEGATIVE Blood Abnormal 50 LAB Urobilinog(LOINC) NORMAL: NORMAL Urobilinog NORM LAB Sp [place](LOINC) NORMAL: 1.010-1.030 Sp [place] 1.015 LAB Nitrite(LOINC) NORMAL: NEGATIVE Nitrite NEG LAB Leukocytes(LOINC) NORMAL: NEGATIVE Leukocytes Abnormal 500 LAB Microscopic(LOINC ) Microscopic SEE BELOW Result Comment: MICROSCOPIC LAB Wbc(LOINC) 0-5/hpf Wbc 26-50 LAB Rbc(LOINC) 0-3/hpf Rbc 15-20 LAB Casts(LOINC) Casts NONE LAB Crystals(LOINC) Crystals NONE LAB Amorphous(LOINC) Amorphous NONE LAB Bacteria(LOINC) Bacteria TRACE LAB Epi Cells(LOINC) Epi Cells NONE LAB Mucous(LOINC) Mucous 1+ LAB Yeast(LOINC) Yeast NONE Performed By: #### [id number] #### [facility],[address] [place] [address] Observed: 06/30/2018 Status: F Source: [facility] CULTURE BLOOD 11:25 PM [facility] REPOSITORY CULTURE BLOOD CULTURE BLOOD SET: 2 of 2 24HOUR REPORT NEGATIVE 48HOUR REPORT NEGATIVE 72HOUR REPORT NEGATIVE M I C R O B I O L O G Y R E P O R T FINAL Antimicrobial Susceptibility and Organism Identification Report Specimen Number : [id number] Requested : 06/30/18 Specimen Source : BLOOD Collected : 06/30/18 23:25 [place] of Isolation : Emergency Room Received : 06/30/18 23:25 Requesting Physician : christina Patient/Specimen Tests and Comments Specimen Comments FINAL REPORT: No Growth at 5 Days Tech : Source : BLOOD ID # : [id number] FINAL Report Date : / / : Collected : 06/30/18 23:25 [id number] Performed By: #### [id number] #### [facility],[address] [place] [address] CBC Collected: 06/30/2018 Status: F Source: [facility] 10:45 PM [facility] REPOSITORY TYPE CODE TESTS RESULT OUT OF RANGE REFERENCE UNITS LAB CBC(LOINC) CBC Result Comment: CBC-COMPLETE BLOOD COUNT LAB WBC(LOINC) 4.5 - 10.8 x 10EE3/UL WBC High 13.6 LAB RBC(LOINC) 4.10 - x 10EE6/UL 5.30 RBC Low 3.61 LAB HEMOGLOBIN(LOINC 12.0 - g/dl ) 16.0 Low HEMOGLOBIN 11.6 LAB HEMATOCRIT(LOINC 34.0 - % ) 46.0 Low HEMATOCRIT 33.8 LAB MCV(LOINC) 80 - 99 fl MCV 94 LAB MCH(LOINC) 27 - 33 pg MCH 32 LAB MCHC(LOINC) 32 - 36 X10 3 MCHC 35 LAB RDW/CV(LOINC) 12.0 - % 15.6 RDW/CV 12.5 LAB PLATELET(LOINC) 150 - 450 x10EE3/UL PLATELET 421 LAB MPV(LOINC) 6.6 - 10.5 fl MPV 8.0 Result Comment: AUTOMATED DIFFERENTIAL LAB NEUT %(LOINC) 46.0 - 76.0 % NEUT % 73.5 LAB LYMPH %(LOINC) 20.0 - 45.0 % Low LYMPH % 16.0 LAB MONOS %(LOINC) 0.0 - 10.0 % MONOS % 9.6 LAB EO %(LOINC) 0.0 - 7.0 % EO % 0.4 LAB BASO %(LOINC) 0.0 - 2.0 % BASO % 0.5 LAB Lymph #(LOINC) 0.80 - 2.80 x10EE3/U L Lymph # 2.20 LAB Neut #(LOINC) 1.50 - 7.10 x10EE3/U L Neut # High 10.00 LAB [place] #(LOINC) 0.20 - 1.00 x10EE3/U L [place] # High 1.30 LAB EO #(LOINC) 0.00 - 0.50 x10EE3/U L EO # 0.00 LAB Baso #(LOINC) 0.00 - 0.10 x10EE3/U L Baso # 0.10 LAB MANUAL DIFF([facility]) MANUAL DIFF N/A LAB MORPHOLOGY(INC ) MORPHOLOGY N/A Result Comment: {CD] Performed By: #### [id number] #### [place] [id number] LACTATE Collected: 06/30/2018 Status: F Source: [facility] 10:45 PM [facility] REPOSITORY TYPE CODE TESTS RESULT OUT OF REFERENCE UNITS RANGE LAB LACTATE(MESSI 4.5 - 18.0 mg/dL NC) Low LACTATE 4.3 Performed By: #### [id number] #### [place] [id number] CMP WITH EGFR Collected: 06/30/2018 Status: F Source: [facility] 10:45 PM [facility] REPOSITORY TYPE CODE TESTS RESULT OUT OF RANGE REFERENCE UNITS LAB CMP with eGFR(INC) CMP with eGFR Result Comment: COMPREHENSIVE METABOLIC PANEL LAB SODIUM(LOINC) 136 - 145 mmol/l SODIUM Low 135 LAB POTASSIUM(LOINC) 3.5 - 5.1 mmol/L Low POTASSIUM 3.3 LAB CHLORIDE(LOINC) 98 - 107 mmol/L CHLORIDE 101 LAB CO2(LOINC) 21.0 - mmol/L 31.0 CO2 24.6 LAB GLUCOSE(LOINC) 74 - 106 mg/dl GLUCOSE 94 LAB BUN(LOINC) 6 - 20 mg/dl BUN 7 LAB CREATININE(LOINC) 0.6 - 1.2 mg/dl CREATININE 0.6 LAB AST/SGOT(LOINC) 13 - 39 U/L AST/SGOT Low 8 LAB ALK PHOS(LOINC) 38 - 126 U/L ALK PHOS 82 LAB CALCIUM(LOINC) 8.6 - mg/dl 10.2 CALCIUM 9.2 LAB TOTAL 6.4 - 8.3 g/dl PROTEIN(LOINC) TOTAL PROTEIN 7.7 LAB ALBUMIN(LOINC) 3.4 - 4.8 g/dL ALBUMIN 3.7 LAB GLOBULIN(LOINC) 1.5 - 3.8 G/DL GLOBULIN High 4.0 LAB A/G RATIO(LOINC) 0.9 - 1.6 A/G RATIO 0.9 LAB TOTAL BILI(LOINC) 0.0 - 1.5 mg/dl TOTAL BILI 0.4 LAB B/C RATIO(LOINC) 0 - 30 ratio B/C RATIO 12 LAB ALT/SGPT(LOINC) 8 - 35 U/L ALT/SGPT 8 LAB ANION GAP(LOINC) 10 - 20 mmol/L ANION GAP 13 LAB AGE(LOINC) years AGE 47 LAB eGFR(LOINC) 60 - 999 ML/MINUTE eGFR >60 LAB eGFR(AA)(LOINC) 60 - 999 ML/MINUTE eGFR(AA) >60 Result Comment: ACCORDING TO THE NATIONAL KIDNEY DISEASE EDUCATION PROGRAM(NKDE), A NORMAL eGFR IS A VALUE GREATER THAN OR EQUAL TO 60 ML/MIN/1.73 SQ METERS. CHRONIC KIDNEY DISEASE: <60mL/MIN/1.73 SQ METERS KIDNEY FAILURE: <15mL/MIN/1.73 SQ METERS THIS TEST SHOULD ONLY BE USED FOR PATIENTS 18 YEARS OF AGE AND OLDER. Performed By: #### [id number] #### [place] [id number] LIPASE Collected: 06/30/2018 Status: F Source: [facility] 10:45 [facility] REPOSITORY TYPE CODE TESTS RESULT OUT OF REFERENCE UNITS RANGE LAB LIPASE(LOIN 18.0 - 51.0 U/L C) LIPASE 18.0 Performed By: #### [id number] #### [place] [id number] TROPONIN Collected: 06/30/2018 Status: F Source: [facility] 10:45 [facility] REPOSITORY TYPE CODE TESTS RESULT OUT OF REFERENCE UNITS RANGE LAB TROPONIN 0.00 - 0.05 ng/ml I(LOINC) TROPONIN I <0.01 Result Comment: Elevated troponin (above the 99th percentile) usually indicates myocardial ischemia. Results must be interpreted within the clinical setting. 1.Non-ischemic pathology can also cause elevated troponin levels (e.g., acute pulmonary embolism, myocarditis, pericarditis, heart failure, intracranial injury, rhabdomyolisis, sepsis, shock and renal insufficiency). 2.Approximately 1% of healthy adults have elevated troponin levels. 3.Analytical false positive results rarely occur(due to multiple interferences such as heterophile antibodies). Performed By: #### [id number] #### [place] [id number] TSH Collected: 06/30/2018 Status: F Source: [facility] 10:45 PM [facility] REPOSITORY TYPE CODE TESTS RESULT OUT OF RANGE REFERENCE UNITS LAB TSH(LOINC) 0.34 - 5.60 uIU/ml Low TSH 0.17 Performed By: #### [id number] #### [place] [id number] Observed: 06/30/2018 Status: F Source: [facility] CULTURE BLOOD 10:45 [facility] REPOSITORY CULTURE BLOOD CULTURE BLOOD SET: 1 of 2 24HOUR REPORT NEGATIVE 48HOUR REPORT NEGATIVE 72HOUR REPORT NEGATIVE M I C R O B I O L O G Y R E P O R T FINAL Antimicrobial Susceptibility and Organism Identification Report Specimen Number : [id number] Requested : 06/30/18 Specimen Source : BLOOD Collected : 06/30/18 22:45 [place] [facility] : Emergency Room Received : 06/30/18 22:45 Requesting Physician : christina Patient/Specimen Tests and Comments Specimen Comments FINAL REPORT: No Growth at 5 Days Tech : Source : BLOOD ID # : [id number] FINAL Report Date : / / : Collected : 06/30/18 22:45 07/06/18.1142.BKO. 07/06/18.1142.[id number].COMPLETE Performed By: #### [id number] #### [facility],[address] [place] [address] EMERGENCY REPORT Observed: 06/30/2018 Status: F Source: [facility] 9:55 PM [facility] EMERGENCY ROOM REPORT NAME ACCOUNT SEX AGE ADMIT DISCHARGE PT MED. RECORD# NUMBER DATE DATE TYPE DAHLIA MARINO [id number] F 47 06/30/18 07/01/18 3 R [id number] ROOM: ER DATE OF : 1970 DICTATING PHYSICIAN: Doroteo Tabor HISTORY OF PRESENT ILLNESS: This is a 47-year-old female with a past medical history of Crohn's, fibromyalgia and reflex sympathetic dystrophy, who presents with concern of abdominal pain. The patient has a long history of chronic abdominal pain secondary to her Crohn's with multiple abdominal surgeries and bowel resections. She states that the pain has been present for approximately one day. She describes it as diffuse and aching in nature. She denies any chest pain or shortness of breath. She does admit to nausea and vomiting. She denies any fever but does admit to chills. She denies any vaginal bleeding or discharge. She denies any drug or alcohol abuse. PAST MEDICAL HISTORY: Crohn's, fibromyalgia, reflex sympathetic dystrophy, colitis, and hypocalcemia. PAST SURGICAL HISTORY: Multiple bowel resections and abdominal surgeries and thyroid surgery. SOCIAL HISTORY: She denies any drug, alcohol or tobacco abuse. REVIEW OF SYSTEMS: Ten systems were reviewed and otherwise negative unless stated above. PHYSICAL EXAMINATION: Upon arrival, the patient is in mild distress secondary to her abdominal pain. Vital signs upon arrival: Temperature is 103.3, pulse 123, respirations 20, blood pressure 145/75, and oxygen saturation 94% on room air. Head: Normocephalic without signs of trauma. Eyes: PERRLA. Extraocular motions are intact. Neck: Trachea is midline, supple. No cervical lymphadenopathy. Lungs: Clear to auscultation bilaterally without wheezing or rhonchi. Heart: S1 and S2 appreciated without murmurs. Abdomen is mildly distended and tender to palpation diffusely. No evidence of peritonitis. Lower extremities with no pedal edema. Skin: No rash. Neurologic: Alert and oriented x3. Psychiatric: Mood and affect are normal. DIAGNOSTIC DATA: Leukocytosis of 13.6 with a mild anemia of 11.6. Lactate is 4.3. Sodium is 135 and potassium 3.3. Urine is contaminated with 500 leukocytes and white blood cells but no nitrites and trace bacteria. Blood cultures were drawn. CT of the abdomen and pelvis shows evidence of a right lower quadrant inflammatory lesion concerning for abscess versus neoplasm. Page 1 of 2 DAHLIA MARINO Emergency Room Report EMERGENCY DEPARTMENT COURSE AND TREATMENT: The patient is in mild distress secondary to her abdominal pain. She was given 4 mg of morphine as well as Zofran and one liter of normal saline. The patient has vital signs concerning for sepsis and was given Tylenol and had blood cultures drawn. Urine is contaminated and not significant for infection. The patient does have a leukocytosis of 13.6. CT of the abdomen shows evidence of a likely abscess in the right lower quadrant. The patient was given multiple doses of narcotic pain medication. On reexamination, the patient is no longer febrile, and after 2 liters of normal saline her heart rate has returned to within normal limits. During her stay here, the patient had a brief period where her blood pressure dropped to 80 systolic. She was given one liter of normal saline and returned almost immediately to a normal blood pressure. She remains afebrile. During her stay, the patient was also given Zosyn 3/0.375 grams for her abdominal abscess. I first contacted our surgical service here at [facility], who due to this patient's complicated medical history suggested transfer to [place] in [place]. I then contacted [place], who suggested contacting the [facility] due to her complicated history. I then contacted [facility], who was agreeable with accepting the patient. The patient was monitored in our Emergency Department throughout the night and then transferred in stable condition. Dictated By: Doroteo Tabor DO 07/01/18 07:00 JOB #: [id number] Transcribed By: jen 07/01/18 09:44 Electronically signed by: E-SIGN: Doroteo Tabor D.O. 07/08/18 06:49 Page 2 of 2 DAHLIA MARINO Emergency Room Report EMERGENCY REPORT Observed: 06/30/2018 Status: F Source: [facility] 9:55 PM [facility] EMERGENCY ROOM REPORT NAME ACCOUNT SEX AGE ADMIT DISCHARGE PT MED. RECORD# NUMBER DATE DATE TYPE DAHLIA MARINO [id number] F 47 06/30/18 07/01/18 3 R [id number] ROOM: ER DATE OF : 1970 DICTATING PHYSICIAN: Lore ESPARZA EMERGENCY DEPARTMENT COURSE AND TREATMENT: The patient was signed out to me at 7 a.m. pending transfer. Patient with 3 weeks of abdominal pain and questionable intra-abdominal abscesses. She is complaining of pain again. No acute abdominal guarding, rebound or rigidity. She was given 1 mg of Ativan, 30 mg of Toradol, and 8 mg of Zofran. EMS is here to transport her in stable condition to the outlying facility. DIAGNOSIS: Intra-abdominal abscess with abdominal pain. Dictated By: Lore Mujica DO 07/01/18 08:22 JOB #: [id number] Transcribed By: jen 07/01/18 10:00 Electronically signed by: E-Sign: LORE MUJICA MD 07/12/18 12:00 Page 1 of 1 DAHLIA MARINO Emergency Room Report EMERGENCY DEPARTMENT Observed: 05/11/2018 Status: F Source: [place] REPORT 4:14 PM [facility] [place] [address] HEALTH INFORMATION MANAGEMENT EMERGENCY DEPARTMENT REPORT Patient: DAHLIA MARINO KATIA TAMEZ D.O. [id number] [age] F Status: DEP ER ED Date of Service: 05/08/18 CHIEF COMPLAINT A 47-year-old female. Chief complaint: Vaginal problem. HISTORY OF PRESENT ILLNESS The patient says she has had a recurrent yeast infection. She has had a discolored discharge. She has had a hysterectomy. She does not have a terra cotta mold maker. No other complaints. No abdominal pain, just feeling frustrated by this vaginal drainage. PHYSICAL EXAMINATION On exam, vital signs are stable. She is afebrile, alert, a well-developed, well-nourished female in no distress. She does have fluid in the vagina, which we swabbed and sent down to the lab. I do not see any external abscesses or evidence for cellulitis or any other lesions. I do not appreciate any focal deficits. Her skin is warm and dry. IMPRESSION Vaginitis. PLAN There is no yeast here, so I am going to treat her for bacterial vaginosis and I am going to refer her to [facility] for followup. <Electronically signed by KATIA TAMEZ D.O.> 05/12/18 0538 KATIA TAMEZ D.O. cc: KATIA TAMEZ D.O. << Signature on File>> Reported By: KATIA TAMEZ D.O. Signed By: KATIA TAMEZ D.O. Tests performed at: [address] [address] ED PROV NOTE Observed: 05/11/2018 Status: COMPLETED Source: [place] 4:14 PM [facility] REPOSITORY HNO ID: [id number] Author: Katia Tamez Service: (none) Author Type: Physician Type: ED Provider Notes Filed: 06/23/2018 9:00 PM Note Text: [place] [address] HEALTH INFORMATION MANAGEMENT EMERGENCY DEPARTMENT REPORT Patient: DAHLIA MARINO KATIA TAMEZ D.O. [id number] [age] F Status: [facility] ER ED Date of Service: 05/08/18 CHIEF COMPLAINT A 47-year-old female. Chief complaint: Vaginal problem. HISTORY OF PRESENT ILLNESS The patient says she has had a recurrent yeast infection. She has had a discolored discharge. She has had a hysterectomy. She does not have a terra cotta mold maker. No other complaints. No abdominal pain, just feeling frustrated by this vaginal drainage. PHYSICAL EXAMINATION On exam, vital signs are stable. She is afebrile, alert, a well-developed, well-nourished female in no distress. She does have fluid in the vagina, which we swabbed and sent down to the lab. I do not see any external abscesses or evidence for cellulitis or any other lesions. I do not appreciate any focal deficits. Her skin is warm and dry. IMPRESSION Vaginitis. PLAN There is no yeast here, so I am going to treat her for bacterial vaginosis and I am going to refer her to [facility] for followup. <Electronically signed by KATIA TAMEZ D.O.> 05/12/18 0538 KATIA TAMEZ D.O. cc: KATIA TAMEZ D.O. << Signature on File>> Reported By: KATIA TAMEZ D.O. Signed By: KATIA TAMEZ D.O. Tests performed at: [address] [address] Observed: 05/08/2018 Status: F Source: [facility] WET PREP 3:09 AM HOSPITAL REPOSITORY WET PREP FEW EPITHELIAL CELLS MANY WBC'S FEW RBC'S NEGATIVE FOR YEAST NEGATIVE FOR TRICHOMONAS Performed By: #### [id number] #### [facility] [address] [place] [address] EMERGENCY REPORT Observed: 01/09/2018 Status: F Source: [facility] 7:13 PM [facility] EMERGENCY ROOM REPORT NAME ACCOUNT SEX AGE ADMIT DISCHARGE PT MED. RECORD# NUMBER DATE DATE TYPE DAHLIA MARINO [id number] F 47 12/28/17 12/28/17 3 R [id number] ROOM: ER DATE OF : 1970 DICTATING PHYSICIAN: Mor Douglass CHIEF COMPLAINT/HISTORY OF PRESENT ILLNESS: The patient is seen at arrival at 0400 hours. This is a very nice young lady who comes into the emergency room with vomiting and diarrhea. She vomited x5 and diarrhea x7. All of this started around 2 o'clock in the morning. She states that she does not known if it could have been something that she ate last night, but she states that she just feels nauseated and tremulous, so she came here to the emergency room. She was seen at 0413 hours in room #6 and later seen in the presence of her . She states that her overall health is fair. She has a history of Crohn's disease. She states that part of her liver has been removed as a result of the Crohn's disorder. She states that she is not a diabetic. She admits to having chest pain and had a previous stent placed for thinning of the coronary arteries by Dr. Haque in [place]. She states that she has had an electrolyte imbalance in the past. PAST MEDICAL HISTORY: She has a history of thyroid disorder, previous surgeries or hysterectomy, Crohn's and liver disorder. MEDICATIONS: She takes vitamins and medications for her Crohn's disease. FAMILY HISTORY: She states that her mother and father are in good health. SOCIAL HISTORY: She does not smoke. No alcohol use. She is not employed. Actually she states that she is from her , but he brought her down here today. REVIEW OF SYSTEMS: No blood in her emesis. No headaches, no change in vision, hearing or speech. No neck discomfort. No cough, no congestion, no shortness of breath. Vague abdominal discomfort, but mostly just nausea, vomiting and diarrhea. No difficulty with urination. She states that her overall health is good otherwise. PHYSICAL EXAMINATION: She is pleasant, alert, well dressed. She is seen in the presence of her ex- later. Both are very conversant and pleasant. Neck is supple. HEENT exam is normal. She is slightly dry in the mouth. Neck is supple. No JVD at 10 degrees. Lungs are clear. There are no expiratory wheeze or rales. There is no tachypnea. Her heart rate and rhythm is regular. PMI is at the left breast. She has no peripheral edema. She has good radial and dorsalis pedis pulses. Her bowel sounds are normal. Her abdomen is soft, not tender. She has no rash present, including soles, Page 1 of 2 DAHLIA MARINO Emergency Room Report palms and creases. Vital Signs: Temperature 99 temporal scanning, 109 brachial pulse, respirations 22, blood pressure 130/80, 95% saturation. DIAGNOSTIC DATA: Troponin was negative. Her other laboratory data indicated 11,700 white count, 91% neutrophils with slight shift to the left. D-dimer was not checked. Lipase was normal. Troponin was normal. Potassium was slightly low at 3.3. Chloride was 110, slightly elevated. CO2 is slightly low at 22.7. Glucose is slightly elevated at 127, and there was no urine produced. EKG was a normal sinus mechanism without an evidence of acute [place]. Rate was 93 and this was done at 0414 hours. EMERGENCY DEPARTMENT COURSE AND TREATMENT: After evaluating her, she does appear to be somewhat dry. An IV liter was ordered, labs were ordered. It is not considered a treatable illness at this point. I rechecked on the patient at 0630 hours and the patient was resting comfortably. She had no discomfort and had no further vomiting or diarrhea here in the emergency room. Abdomen was soft. She had a liter of fluid. She states that she still felt a little weak. We had given her 100 of Ativan. We gave her a little more fluids, and she will be discharged to home with 1 Phenergan to go, a suppository. DIAGNOSIS: PLAN/DISPOSITION: She should sleep today. Continue her regular medications. Return p.r.n. if necessary and both she and her were thankful for the care. Dictated By: Mor Douglass DO 05/08/18 06:44 JOB #: [id number] Transcribed By: sp 12/29/17 05:54 Electronically signed by: E-SIGN MOR RAFAT ARSHAD 01/09/18 19:10 Page 2 of 2 DAHLIA MARINO Emergency Room Report CBC Collected: 12/28/2017 Status: F Source: [facility] 4:10 AM [facility] REPOSITORY TYPE CODE TESTS RESULT OUT OF RANGE REFERENCE UNITS LAB CBC(LOINC) CBC Result Comment: CBC-COMPLETE BLOOD COUNT LAB WBC(LOINC) 4.5 - 10.8 x 10EE3/UL WBC High 11.7 LAB RBC(LOINC) 4.10 - x 10EE6/UL 5.30 RBC 4.22 LAB HEMOGLOBIN(LOINC 12.0 - g/dl ) 16.0 HEMOGLOBIN 13.7 LAB HEMATOCRIT(LOINC 34.0 - % ) 46.0 HEMATOCRIT 40.4 LAB MCV(LOINC) 80 - 99 fl MCV 96 LAB MCH(LOINC) 27 - 33 pg MCH 33 LAB MCHC(LOINC) 32 - 36 X10 3 MCHC 34 LAB RDW/CV(LOINC) 12.0 - % 15.6 RDW/CV 12.9 LAB PLATELET(LOINC) 150 - 450 x10EE3/UL PLATELET 333 LAB MPV(LOINC) 6.6 - 10.5 fl MPV 8.0 Result Comment: AUTOMATED DIFFERENTIAL LAB NEUT %(LOINC) 46.0 - 76.0 % NEUT % High 91.5 LAB LYMPH %(LOINC) 20.0 - 45.0 % Low LYMPH % 3.4 LAB MONOS %(LOINC) 0.0 - 10.0 % MONOS % 4.0 LAB EO %(LOINC) 0.0 - 7.0 % EO % 1.0 LAB BASO %(LOINC) 0.0 - 2.0 % BASO % 0.1 LAB Lymph #(LOINC) 0.80 - 2.80 x10EE3/U Low L Lymph # 0.40 LAB Neut #(LOINC) 1.50 - 7.10 x10EE3/U L Neut # High 10.70 LAB Gulf #(LOINC) 0.20 - 1.00 x10EE3/U L Gulf # 0.50 LAB EO #(LOINC) 0.00 - 0.50 x10EE3/U L EO # 0.10 LAB Baso #(LOINC) 0.00 - 0.10 x10EE3/U L Baso # 0.00 LAB MANUAL DIFF(LOINC) MANUAL DIFF N/A LAB MORPHOLOGY(LOINC ) MORPHOLOGY N/A Result Comment: {CD] Performed By: #### [id number] #### [facility],[address] [place] [address] CMP WITH EGFR Collected: 12/28/2017 Status: F Source: [facility] 4:10 AM [facility] REPOSITORY TYPE CODE TESTS RESULT OUT OF RANGE REFERENCE UNITS LAB CMP with eGFR(LOINC) CMP with eGFR Result Comment: COMPREHENSIVE METABOLIC PANEL LAB SODIUM(LOINC) 136 - 145 mmol/l SODIUM 141 LAB POTASSIUM(LOINC) 3.5 - 5.1 mmol/L Low POTASSIUM 3.3 LAB CHLORIDE(LOINC) 98 - 107 mmol/L CHLORIDE High 110 LAB CO2(LOINC) 21.0 - mmol/L 31.0 CO2 Low 19.7 LAB GLUCOSE(LOINC) 74 - 106 mg/dl GLUCOSE High 127 LAB BUN(LOINC) 6 - 20 mg/dl BUN 10 LAB CREATININE(LOINC) 0.6 - 1.2 mg/dl CREATININE 0.6 LAB AST/SGOT(LOINC) 13 - 39 U/L AST/SGOT 13 LAB ALK PHOS(LOINC) 38 - 126 U/L ALK PHOS 77 LAB CALCIUM(LOINC) 8.6 - mg/dl 10.2 CALCIUM 9.0 LAB TOTAL 6.4 - 8.3 g/dl PROTEIN(LOINC) TOTAL PROTEIN 7.6 LAB ALBUMIN(LOINC) 3.4 - 4.8 g/dL ALBUMIN 4.2 LAB GLOBULIN(LOINC) 1.5 - 3.8 G/DL GLOBULIN 3.4 LAB A/G RATIO(LOINC) 0.9 - 1.6 A/G RATIO 1.2 LAB TOTAL BILI(LOINC) 0.0 - 1.5 mg/dl TOTAL BILI 0.6 LAB B/C RATIO(LOINC) 0 - 30 ratio B/C RATIO 17 LAB ALT/SGPT(LOINC) 8 - 35 U/L ALT/SGPT 12 LAB ANION GAP(LOINC) 10 - 20 mmol/L ANION GAP 15 LAB AGE(LOINC) years AGE 47 LAB eGFR(LOINC) 60 - 999 ML/MINUTE eGFR >60 LAB eGFR(AA)(LOINC) 60 - 999 ML/MINUTE eGFR(AA) >60 Result Comment: ACCORDING TO THE NATIONAL KIDNEY DISEASE EDUCATION PROGRAM(NKDE), A NORMAL eGFR IS A VALUE GREATER THAN OR EQUAL TO 60 ML/MIN/1.73 SQ METERS. CHRONIC KIDNEY DISEASE: <60mL/MIN/1.73 SQ METERS KIDNEY FAILURE: <15mL/MIN/1.73 SQ METERS THIS TEST SHOULD ONLY BE USED FOR PATIENTS 18 YEARS OF AGE AND OLDER. Performed By: #### [id number] #### [place] [address] LIPASE Collected: 12/28/2017 Status: F Source: [facility] 4:10 [facility] REPOSITORY TYPE CODE TESTS RESULT OUT OF REFERENCE UNITS RANGE LAB LIPASE(LOIN 18.0 - 51.0 U/L C) LIPASE 25.0 Performed By: #### [id number] #### [place] [address] TROPONIN Collected: 12/28/2017 Status: F Source: [facility] 4:10 [facility] REPOSITORY TYPE CODE TESTS RESULT OUT OF REFERENCE UNITS RANGE LAB TROPONIN 0.00 - 0.05 ng/ml I(LOINC) TROPONIN I 0.01 Result Comment: Elevated troponin (above the 99th percentile) usually indicates myocardial ischemia. Results must be interpreted within the clinical setting. 1.Non-ischemic pathology can also cause elevated troponin levels (e.g., acute pulmonary embolism, myocarditis, pericarditis, heart failure, intracranial injury, rhabdomyolisis, sepsis, shock and renal insufficiency). 2.Approximately 1% of healthy adults have elevated troponin levels. 3.Analytical false positive results rarely occur(due to multiple interferences such as heterophile antibodies). Performed By: #### [id number] #### [place] [id number] ALLERGIES ALLERGIES DATE TYPE / NAME / CODE REACTION SEVERITY SOURCE CODE 08/04/2018 Drug doxycycline/[id number] Other Unknown [place] Allergy/41 748(RXNORM) [facility] [id number]([facility]) Repository 08/04/2018 Drug erythromycin Hives Unknown [place] Allergy/41 base/[id number](RXN [facility] [id number](SN ORM) [facility]) Repository 08/04/2018 Drug metronidazole/F0060 Other Unknown [place] Allergy/41 70671(RXNORM) [facility] [id number]([facility]) Repository 07/01/2018 DRUG DOXYCYCLINE SHORTNESS OF High [place] INGREDI/41 Clinic Other [id number]([facility]) Repository 07/01/2018 DRUG METRONIDAZOLE INTOLERANCE High [place] INGREDI/41 Clinic Other [id number]([facility]) Repository 07/01/2018 DRUG AZITHROMYCIN SHORTNESS OF High [place] INGREDI/41 Clinic Other [id number]([facility] OME [facility]) Repository NG/[id number] DOXYCYCLINE [facility]) Repository NG/[id number] METRONIDAZOLE [facility] 06([facility]) Repository NG/[id number] AZITHROMYCIN [facility] 06([facility]) Repository Drug DOXYCYCLINE/4116058 Moderate [place] Allergy/41 0(RXNORM) ([facility] [id number](SN Modifier) [facility]) (Qualifier Repository Value) Drug FLAGYL/[id number](RXN Moderate [place] Allergy/41 ORM) ([facility] [id number](SN Modifier) [facility]) (Qualifier Repository Value) Drug ERYTHROMYCIN/503033 Moderate [place] Allergy/41 26(RXNORM) ([facility] [id number](SN Modifier) [facility]) (Qualifier Repository Value) ENCOUNTERS ENCOUNTERS ADMIT/DISCHARGE ACCOUNT NUMBER ADMITTING ENCOUNTER LOCATION SOURCE CLASS 08/09/2018 [id number] [facility] ding:MEDOUTP Repository 08/08/2018 [id number] [facility] ding:MEDOUTP Repository 08/07/2018/08/07/[id number] ding:MEDOUTP Repository 08/06/2018/08/06/[id number] ding:MEDOUTP Repository 08/05/2018 [id number] [facility] ding:MEDOUTP Repository 08/04/2018 [id number] [facility] Repository 08/04/2018 [id number] Ambulatory [facility] Repository 08/04/2018 [id number] Ambulatory [facility] Repository 08/03/2018 [id number] Ambulatory [place] [facility] Repository 08/02/2018 [id number] Ambulatory [place] [facility] ding:[facility] Repository 08/01/2018 [id number] [place]ulatory [place] [facility] ding:[facility] Repository 07/31/2018/07/31/20 [id number] Ambulatory Samara Samara [address] [place] [address] [facility] Repository 07/30/2018/07/30/20 [id number] Ambulatory [place] [address] [place] [address] [facility] ding:MED[facility]P Repository Room: [facility] 07/29/2018 [id number] [facility]ulatory [place] [facility] Repository 07/29/2018 [id number] Ambulatory [facility] Repository 07/28/2018 [id number] [place]ulatory [place] [facility] ding:[facility] Repository 07/27/2018 [id number] Ambulatory [place] [facility] ding:[facility] Repository 07/26/2018 [id number] Ambulatory [facility] [facility] ding:[facility] Repository 07/26/2018 [id number] Ambulatory [facility] Repository 07/25/2018 [id number] Ambulatory [facility] ding:MEDOUTP Repository 07/24/2018/07/24/20 [id number] Ambulatory [facility] [address] [place] [address] HospitalBuil Hospital ding:MEDOUTP Repository 07/23/2018/07/23/20 [id number] Ambulatory [facility] [address] [place] [address] HospitalBuil Hospital ding:MEDOUTP Repository 07/22/2018 [id number] Ambulatory [facility] ding:MEDOUTP Repository 07/21/[id number] [facility] ding:MEDOUT Repository 07/17/2018 [id number] Inpatient BuildinA [facility] Encounter 4NRoom: System [id number]: Repository [id number] 07/02/2018 [id number] Inpatient [facility] Encounter 6WRoom: System [id number]: Repository [id number] 07/01/2018/07/02/20 [id number] TETY[place], Inpatient [place] 18 P[address] Encounter Clinic Other [place] Repository 07/01/2018/07/02/20 [id number] TETYUK, Inpatient [facility] 18 P[address] Encounter [facility] MEDICAL Repository CENTERBuildi nRoom: 7121Bed: 06/30/2018/07/01/20 [id number] CHRISTINA, Emergency [address]in[address] [place] [address] 18 DOROTEO D Room: ERBed: [facility] Repository 05/08/2018/05/08/20 [id number] Emergency UNIBuilding: [address] Repository 12/28/2017/12/29/19 [id number] RAFAT, Emergency [address]in[address] [place] [address] 18 MOR DO Room: ERBed: [facility] Repository PAYERS PAYERS ENCOUNTER GUARANTOR 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 SOURCE 08/09/2018 DAHLIA Hathaway Primary Insurance:SELF NOT GIVENUNK [place] [id number] [facility] [place] Date:2018-07-26 Repository 51168Ste: () 08/08/2018 DAHLIA Hathaway Primary Insurance:SELF NOT GIVENUNK [place] [id number] [facility]Y [facility] Number: Effective [facility] Date:2018-07-26 Repository 44517Zvc: () 08/07/2018 DAHLIA Hathaway Primary Insurance:SELF NOT GIVENUNK [place] [id number] PAY [facility] Number: Effective [facility] [place] Date:2018-07-26 Repository 18336Yjo: () 08/06/2018 DAHLIA Hathaway Primary Insurance:SELF NOT GIVENUNK [place] [id number] PAY [facility] [place] Number: Effective Hospital [facility], [place] Date:2018-07-26 Repository 02672Spd: () 08/05/2018 DAHLIA R Primary Insurance:SELF NOT GIVENUNK [place] [id number] [facility]Y [facility] Number[facility] Effective Hospital [facility] Date:2018-07-26 Repository 40[address]Tjc: (HP) 08/04/2018 DAHLIA R Primary Insurance:SELF NOT GIVENUNK [place] [id number] [facility]Y [facility] Number: Effective Hospital [facility] Date:2018-07-26 Repository 33562Piv: () 08/04/2018 Dahlia Primary Dahlia BarkfrancisDOB: [facility] BarkfrancisDOB: Insurance:MedicarePoli [id number] System [place] Number: Effective Repository [place] Date: [place], [place] [address]Xjb: () 08/04/2018 Secondary Dahlia BarkfrancisDOB: [facility] Insurance:Self [id number] System PayPolicy Number: Repository Effective Date: 08/04/2018 [facility] Primary Dahlia BarkfrancisDOB: [facility] BarkDOB: Insurance:MedicarePoli [id number] System [place] Number: Effective Repository [place] Date: [place], [place] [address]Cyv: () 08/04/2018 Secondary Dahlia BarkfrancisDOB: [facility] Insurance:MedicarePoli [id number] System cy Number: Effective Repository Date: 08/03/2018 DAHLIA R Primary Insurance:SELF NOT GIVENUNK [place] [id number] PAY [facility] Number: Effective Hospital [facility] Date:2018-07-26 Repository 60[address]Ctb: (HP) 08/02/2018 DAHLIA R Primary Insurance:SELF NOT GIVENUNK [place] [id number] [facility]Y [facility] Number: Effective Hospital [facility] Date:2018-07-26 Repository 66[address]Zcf: () 08/01/2018 DAHLIA Hathaway Primary DAHLIA Hathaway [place] [id number] Insurance:MEDICARE A BARKESDOB: [facility] ONLYPolicy Number: [id number] [id number] Repository [address]Pzd: (330) Date:2018-07-26 [phone] () 08/01/2018 Secondary NOT GIVENUNK [place] Insurance:SELF PAY [facility] Effective Repository Date:2018-07-26 07/31/2018 DAHLIA Hathaway Primary DAHLIA Hathaway Samara [id number] Insurance:MEDICARE A BARKESDOB: [facility] [place] Number: [id number], [place] [id number] Repository [address]92[address]Put: (330) Date:2018-07-26 [phone] () 07/31/2018 Secondary NOT GIVENUNK Samara Insurance:SELF PAY [facility] Number: Effective Repository Date:2018-07-26 07/30/2018 DAHLIA Hathaway Primary DAHLIA Hathaway [place] [id number] Insurance:MEDICARE A BARKESDOB: [facility] Number: [id number], [place] [id number] Repository [address]Kib: (330) Date:2018-07-26 [phone] () 07/30/2018 Secondary NOT GIVENUNK [place] Insurance:SELF PAY [facility] Number: Effective Repository Date:2018-07-26 07/29/2018 DAHLIA Hathaway Primary DAHLIA [place] [id number] Insurance:MEDICARE A BARKESDOB: [facility] Hospital[facility] Number: [id number], [place] [id number] Repository [address]Glf: (330) Date:2018-07-26 [phone] () 07/29/2018 Secondary NOT GIVENUNK [place] Insurance:SELF PAY [facility] Number: Effective Repository Date:2018-07-26 07/29/2018 Dahlia Villagomez BarkfrancisDOB: [facility] BarkesDOB: Insurance:MedicarePoli [id number] System [place] Number: Effective Repository [place] Date: [place], [place] [address]Siv: (HP) 07/28/2018 DAHLIA R Primary DAHLIA R [place] [id number] Insurance:MEDICARE A BARKESDOB: [facility] ONLYPolicy Number: [id number], [place] [id number] Repository [address]Psc: 330) Date:2018-07-26 [phone] (HP) 07/28/2018 Secondary NOT GIVENUNK Samara Insurance:SELF PAY [facility] Number: Effective Repository Date:2018-07-26 07/27/2018 DAHLIA R Primary Insurance:SELF NOT GIVENUNK [place] [id number] PAY [facility] Number: Effective [place] Date:2018-07-26 Repository [address]Ofn: (HP) 07/26/2018 DAHLIA R Primary DAHLIA R Samara [id number] Insurance:MEDICARE A BARKESDOB: [facility] ONLYPolicy Number: [id number], [place] [id number] Repository [address]Fhf: 330) Date:2018-07-26 [phone] (HP) 07/26/2018 Secondary NOT GIVENUNK Samara Insurance:SELF PAY [facility] Number: Effective Repository Date:2018-07-26 07/26/2018 Dahlia Primary Dahlia BarkesD[facility] BarkesDOB: Insurance:MedicarePoli [id number] System cy Number: Effective Repository [place] Date: [place], [place] [address]Ilj: (HP) 07/26/2018 Secondary Dahlia BarkfrancisDOB: [facility] Insurance:Self [id number] System PayPolicy Number: Repository Effective Date: 07/25/2018 DAHLIA R Primary DAHLIA R Samara [id number] Insurance:MEDICARE A BARKESDOB: [facility] ONLYPolicy Number: [id number], [place] [id number] Repository [address]Sxk: (330) Date:2018-07-20 [phone] (HP) 07/25/2018 Secondary NOT GIVENUNK Samara Insurance:SELF PAY [facility] Number: Effective Repository Date:2018-07-20 07/24/2018 DAHLIA R Primary DAHLIA R [place] [id number] Insurance:MEDICARE A BARKESDOB: [facility] Number: [id number] [place], [place] [id number] Repository [address]Szk: (330) Date:2018-07-20 [phone] (HP) 07/24/2018 Secondary NOT GIVENUNK [place] Insurance:SELF PAY [facility] Number: Effective Repository Date:2018-07-20 07/23/2018 DAHLIA R Primary Insurance:SELF NOT GIVENUNK [place] [id number] PAY [facility] Number: Effective [place] Date:2018-07-20 Repository [address]Qwe: () 07/22/2018 DAHLIA R Primary Insurance:SELF NOT GIVENUNK [facility] [id number] [facility]Y [facility] Number: [place] Date:2018-07-20 Repository [address]50[address]Air: (HP) 07/21/2018 DAHLIA R Primary Insurance:SELF NOT GIVENUNK [place] [id number] [facility]Y [facility] Number: [place] Date:2018-07-20 Repository [address]Awu: (HP) 07/17/2018 Dahlia [facility]: Insurance:MedicarePoli [id number] System cy Number: Effective [facility] Date: [place], [place] [address]Iid: (HP) 07/02/2018 [facility] BarkDOB: [facility] BarkDOB: Insurance:MedicarePoli [id number] System cy Number: Effective [facility] Date: [place], [place] [address]Buk: (HP) 07/02/2018 Secondary Dahlia BarkesDOB: [facility] Insurance:Self [id number] System PayPolicy Number: Repository Effective Date: 07/01/2018 DAHLIA R Primary DAHLIA R [facility] BARKDOB: Insurance:MEDICARE [facility] APolicy Number: [id number] Repository [place] [id number] [place] Date: [address]Uax: () 06/30/2018 DAHLIA R Primary DAHLIA R Kashif Keita BARKESDOB: Insurance:MEDICARE [facility]: [facility] INPATIENTPolmercyone [facility] [id number] [place] [address] Number: [place] Repository [place], [place] [id number] [place] [id number]: Date:Plan Name: [id number] () 05/08/2018 DAHLIA R Primary DAHLIA R [facility] [id number] Insurance:MEDICARE B[facility]UNK [facility] [place] DISABILITYPolicy Repository [place], [place] Number: [id number]: (291) [id number] [phone] () Date: 12/28/2017 DAHLIA R Primary DAHLIA R Kashif Keita BARKESDOB: Insurance:MEDICARE BARKESDOB: [facility] OUTPATIENTPolicy [id number] [place] [address] Number: [place] Repository [place] [id number] [place] [id number]: Date:Plan Name: [id number] ()
== END ==
LOC: MEDOUTP 13:45
PROVIDERS: Referring Provider Internal Medicine Infectious Disease
DX: K65.1 Peritoneal abscess (principal)
CPT/HCPCS: 96365; 80053; 85025; J7050; A4216

== ENCOUNTER → 2018-07-22 13:57 | Outpatient (CLI) | payer SELFPAY ==
[2018-07-21 14:10] VITALS: BMI 24.0
[2018-07-22 14:20] VITALS: BP 131/63; PULSE 77; RESP 16; TEMP 37.5; O2SAT 97; BMI 24.0
--- OUTSIDE RECORDS SUMMARY | 2018-09-16 13:21 | XMS RPT_ITS ---
:1970 Author Organization OHIP Support Name Relationship Address Phone NILDA MARINOT Unavailable [address] [place] [address] + [place] [address] BROWN, DINAH Unavailable Unavailable + D Unavailable Unavailable Unavailable BARKES, MARS Unavailable [address] [place] [address] + [place] [address] BROWN, DINAH Unavailable Unavailable + D Unavailable Unavailable Unavailable BARKES, MARS Unavailable [address] [place] [address] + [place] [address] BROWN, DINAH Unavailable Unavailable + D Unavailable Unavailable Unavailable BARKES, MARS Unavailable [address] + [place] [address] BROWN, DINAH Unavailable Unavailable + D Unavailable Unavailable Unavailable BARKES, MARS Unavailable [address] + [place] [address] BROWN, DINAH Unavailable Unavailable + D Unavailable Unavailable Unavailable BARKES, MARS Unavailable [address] [facility] + [place] [address] BROWN, DINAH Unavailable Unavailable + D Unavailable Unavailable Unavailable Barkes, Mars Unavailable Unavailable + Brown, Dinah Unavailable Unavailable + Barkes, Mars Unavailable Unavailable + Brown, Dinah Unavailable Unavailable + BARKES, MARS Unavailable [address] + [place] [address] BROWN, DINAH Unavailable Unavailable + D Unavailable Unavailable Unavailable BARKES, MARS Unavailable [address] [place] [address] ST + [place] [address] BROWN, DINAH Unavailable Unavailable + D Unavailable Unavailable Unavailable BARKES, MARS Unavailable [address] [facility] [address] + [place] [address] BROWN, DINAH Unavailable Unavailable + D Unavailable Unavailable Unavailable BARKES, MARS Unavailable [address] + [place] [address] BROWN, DINAH Unavailable Unavailable + D Unavailable Unavailable Unavailable BARKES, MARS Unavailable [address] [facility] [address] [address] + [place] [address] BROWN, DINAH Unavailable Unavailable + D Unavailable Unavailable Unavailable BARKES, MARS Unavailable [address] + [place] [address] BROWN, DINAH Unavailable Unavailable + D Unavailable Unavailable Unavailable Barkes, Mars Unavailable Unavailable + Brown, Dinah Unavailable Unavailable + BARKES, MARS Unavailable [address] + [place] [address] BROWN, DINAH Unavailable Unavailable + D Unavailable Unavailable Unavailable BARKES, MARS Unavailable [address] + [place] [address] BROWN, DINAH Unavailable Unavailable + D Unavailable Unavailable Unavailable BARKES, MARS Unavailable [address] + [place] [address] BROWN, DINAH Unavailable Unavailable + D Unavailable Unavailable Unavailable Barkes, Mars Unavailable Unavailable + Brown, Dinah Unavailable Unavailable + BARKES, MARS Unavailable [address] + [place] [address] BROWN, DINAH Unavailable Unavailable + D Unavailable Unavailable Unavailable BARKES, MARS Unavailable [address] + [place] [address] BROWN, DINAH Unavailable Unavailable + D Unavailable [...] Unavailable Unavailable + BARKES, LANCE Unavailable [address] + [place], [place] [id number] BARKES, MARS Unavailable Unavailable Unavailable NOT GIVEN Unavailable Unavailable Unavailable BARKES, LANCE Unavailable [address] + [place], [place] [id number] BARKES, MARS Unavailable Unavailable Unavailable NOT GIVEN Unavailable Unavailable Unavailable Care Team Providers Name Role Phone KATIA TAMEZ Consulting Unavailable Dena Moore Attending Unavailable PROVIDER, UNKNOWN Referring Unavailable MICHELINE LANGSTON Primary Care Unavailable PROVIDER, UNKNOWN Referring Unavailable No, PCP Primary Care Unavailable Sallie Aggarwal Attending Unavailable PROVIDER, UNKNOWN Referring Unavailable MICHELINE LANGSTON Primary Care Unavailable Jonh Esparza Attending Unavailable Jonh Esparza Attending Unavailable PROVIDER, UNKNOWN Referring Unavailable MICHELINE LANGSTON Primary Care Unavailable Jonh Esparza Attending Unavailable PROVIDER, UNKNOWN Referring Unavailable MICHELINE LANGSTON Primary Care Unavailable PROVIDER, UNKNOWN Referring Unavailable MICHELINE LANGSTON Primary Care Unavailable Jonh Esparza Attending Unavailable Mandapat, Daya Attending Unavailable Mandapat, Daya [...] Physicia, No Primary Care Unavailable Mandapat, Daya Referring Unavailable [...] Primay Care Physicia, No Primary Care Unavailable OMNATALI MOR DO Admitting Unavailable OMLEY MOR DO Attending Unavailable ARTURO DOUGLASSOTHY DO Primary Care Unavailable MARLO LANG MD Consulting Unavailable MARLO LANG MD Referring Unavailable PROVIDER, UNKNOWN Consulting Unavailable DOROTEO TABOR Admitting Unavailable DOROTEO TABOR Attending Unavailable MARLO LANG MD Referring Unavailable DOROTEO TABOR Primary Care Unavailable MARLO LANG MD Consulting Unavailable PROVIDER, UNKNOWN Consulting Unavailable TETYUK, PENELOPE Admitting Unavailable TETYUK, PENELOPE Attending Unavailable NICK MONTENEGRO Consulting Unavailable TETYUK, PENELOPE Admitting Unavailable CORI PENELOPE Attending Unavailable Jan MCGOWAN Consulting Unavailable NICK MONTENEGRO Consulting Unavailable PROBLEMS PROBLEMS DATE TYPE CONDITION / CODE ATTENDING STATUS SOURCE 07/26/2018 Admitting Candidiasis of vulva Vilma, Active [facility] Diagnosis and vagina / [facility] B37.3(ICD-10) Repository 07/26/2018 Admitting Encntr for f/u exam [place]chi, Active [facility] Diagnosis aft trtmt for cond [facility] oth than malig Repository neoplm / Z09(ICD-10) 07/26/2018 Admitting Crohn's disease of Vilma, Active [facility] Diagnosis both small and lg [facility] int w oth Repository complication / K50.818(ICD-10) 07/02/2018 Admitting Peritoneal abscess / [facility] Diagnosis K65.1(ICD-10) [facility] Repository 07/02/2018 Admitting Crohn's disease, [facility] Diagnosis unspecified, with [facility] abscess / Repository K50.914(ICD-10) 07/02/2018 Admitting Unspecified severe [employer] [facility] Diagnosis protein-calorie [facility] malnutrition / Repository E43(ICD-10) 07/02/2018 Admitting Complex regional [employer] [facility]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 I, [facility] unspecified / Repository G90.50(ICD-10) 07/02/2018 Admitting Urinary tract [employer] [facility] Diagnosis infection, site not [facility] specified / Repository N39.0(ICD-10) 07/02/2018 Admitting Personal history of [facility] Diagnosis nicotine dependence [facility] / Z87.891(ICD-10) Repository 07/02/2018 Admitting Fibromyalgia / Oscar, Active [facility] Diagnosis M79.7(ICD-10) [facility] Repository 07/02/2018 Admitting Hypothyroidism, Oscar, [facility] Diagnosis unspecified / [facility] E03.9(ICD-10) Repository 07/02/2018 Admitting Presence of coronary [employer] [facility] Diagnosis angioplasty implant [facility] and graft / Repository Z95.5(ICD-10) 07/02/2018 Admitting Athscl heart disease Oscar, [facility]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 Repository / I25.10(ICD-10) 07/02/2018 Admitting Body mass index Oscar, [employer] Diagnosis (BMI) 24.0-24.9, [facility] adult / Repository Z68.24(ICD-10) 07/02/2018 Admitting Abnormal weight loss Oscar, [employer] Diagnosis / R63.4(ICD-10) [facility] Repository 07/02/2018 Admitting Elevated white blood Oscar, [employer] Diagnosis cell count, [facility] System unspecified / Repository D72.829(ICD-10) 07/02/2018 Admitting Hypokalemia / Oscar, [employer] Diagnosis E87.6(ICD-10) [facility] Repository 07/02/2018 Admitting Hypomagnesemia / [facility] Diagnosis E83.42(ICD-10) [facility] Repository 07/02/2018 Admitting Anemia, unspecified [facility] [employer] Diagnosis / D64.9(ICD-10) [facility] Repository 07/01/2018 Active Unknown / TETYUK, Active [facility] UNK(Unknown) [facility] Other [place] Repository 05/08/2018 Admitting Unknown / NA Active [facility] diagnosis UNK(Unknown) Hospital Repository 12/28/2017 Admitting Vomiting, OMLEY, 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 unspecified / DO [facility] R1110(ICD-10) Hospital Repository 12/28/2017 Principle Noninfective OMLEY, 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 gastroenteritis and [facility] colitis, unspecified Hospital / K529(ICD-10) Repository 12/28/2017 Secondary Crohn's disease, OMLEY, 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 unspecified, without [facility] complications / Hospital K5090(ICD-10) Repository 12/28/2017 Secondary Atherosclerotic OMLEY, 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[facility] asa'carsarmiut 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 Repository angina pectoris / I2510(ICD-10) 12/28/2017 Secondary Presence of coronary OMLEY, 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 angioplasty implant [facility] and graft / Hospital Z955(ICD-10) Repository PROCEDURES PROCEDURES No Procedure Records FoundRESULTS RESULTS CT ABDOMEN/PELVIS W/ Observed: 08/04/2018 Status: F Source: [place] CONTRAST 1:01 PM SYSTEM REPOSITORY Patient Name: DAHLIA MARINO CT Exam Date/Time 08/04/2018 12:09:[address] Abdomen/Pelvis w/ IV Contrast (IV Onl Ordering Physician MD MEDRANO DIANA Accession Number [id number] CPT4 Codes 17491 (CT Abdomen/Pelvis w/ IV Contrast (IV Onl), Q9967 (CT ISOVUE 370MG/[id number]) Reason For Exam RLQ phlegmon vs abscess [...] METABOLIC PANEL Collected: 08/04/2018 Status: F Source: [place] 9:09 AM SYSTEM REPOSITORY TYPE CODE TESTS [...] Calcium 8.8 Performed By: #### BMP3 #### [facility] [address] [place] [phone] CBC W/DIFF, AUTOMATED Collected: 08/03/2018 Status: F Source: [place] 2:13 PM [facility] REPOSITORY TYPE CODE TESTS RESULT OUT [...] Lymph 1.92 Performed By: #### L100.0100 #### [facility] [address] [place], [address] COMPREHENSIVE METABOLIC Collected: 08/03/2018 Status: F Source: [facility] 2:13 PM [facility] REPOSITORY TYPE CODE TESTS RESULT OUT [...] 9 GAP Performed By: #### L500.4050 #### [facility] [address] [place], [place], [address] CBC W/DIFF, AUTOMATED Collected: 07/27/2018 Status: F Source: [place] 2:06 PM [facility] REPOSITORY TYPE CODE TESTS RESULT OUT [...] Lymph 1.89 Performed By: #### L100.0100 #### [facility] [address] [place], [place], [address] COMPREHENSIVE METABOLIC Collected: 07/27/2018 Status: F Source: [facility] 2:06 PM [facility] REPOSITORY TYPE CODE TESTS RESULT OUT [...] Normal 7 Performed By: #### L500.4050 #### [facility] [address] [place], [address] CBC W/DIFF, AUTOMATED Collected: 07/21/2018 Status: F Source: [place] 2:35 PM [facility] REPOSITORY TYPE CODE TESTS RESULT OUT [...] Lymph 1.50 Performed By: #### L100.0100 #### [facility] [address] [place], [place], [address] COMPREHENSIVE METABOLIC Collected: 07/21/2018 Status: F Source: [facility] 2:35 PM [facility] REPOSITORY TYPE CODE TESTS RESULT OUT [...] GAP 4 Performed By: #### L500.4050 #### [facility] [address] [facility] [place], [place], [address] CR CHEST PORTABLE Observed: 07/20/2018 Status: F Source: [place] 6:44 PM SYSTEM REPOSITORY Patient Name: DAHLIA MARINO Diagnostic Radiology Exam Date/Time 07/20/2018 16:55:27 EST Exam CR Chest Portable Ordering Physician DO PINON KATHRYN C Accession Number [id number] CPT4 Codes 68421 () Reason For Exam Line placement Report [...] DISCHARGE SUMMARY Observed: 07/20/2018 Status: F Source: [place] 1:18 PM SYSTEM REPOSITORY Attestation signed by [...] (bowel resections x8), hypothyroidism, FM. Presented to [facility] ED on 07/17/18 with worsening abdominal pain. Patient was admitted to [facility] ED in 07/10, discharged 07/04/18. During that [...] follow up with her GI doctor in [place], urged her to set up a follow up appointment soon after discharge. ID placed infusion orders for [facility] in [place] with an appointment to start tomorrow. PROCEDURES: PICC placement CONSULTANTS: Interventional Radiology General Surgery Gastrointestinal Infectious Disease DISCHARGE MEDICATIONS: Dahlia Marino Home Medication Instructions MARLYN:[id number] Printed on:07/20/18 9756 Medication Information calcium-vitamin D (OSCAL) 250-125 MG-UNIT [...] Complexity: follow up within 7-14 calendar days (24881) [x] Severe Complexity: follow up within 7 calendar days (35367) FOLLOW UP TESTING, PENDING RESULTS OR REFERRALS AT TRANSITIONAL CARE VISIT: CT of abdomen after 2-3 weeks of abx [x] Yes [] No RECOMMENDED NEXT STEPS: Please follow up with Dr. Langston at the [facility] at 10am on 07/26/2018. Please follow up with your GI doctor in [place]. Please follow up with Dr. Micheline Barnard of general surgery at [phone] as soon as possible for a follow up appointment in two weeks . DISPOSITION: Home Follow up with Dr. Langston at the [facility] at 10am on 07/26/2018. INSTRUCTIONS TO MA/SW: [...] frame. TIFERON Collected: 07/20/2018 Status: F Source: [place] 11:02 AM SYSTEM REPOSITORY TYPE CODE TESTS RESULT OUT OF REFERENCE UNITS RANGE LAB QTF Negative NA Quantiferon Negative Performed By: #### QTF #### [facility] [address] [id number] HEMOGRAM Collected: 07/20/2018 Status: F Source: [place] 4:25 AM SYSTEM REPOSITORY TYPE CODE TESTS [...] By: #### HEMOG, BMP3M, MG3, PHOS3 #### [facility] [address] [place] [phone] BASIC METABOLIC PANEL Collected: 07/20/2018 Status: F Source: [place] 4:25 AM SYSTEM REPOSITORY TYPE CODE TESTS [...] By: #### HEMOG, BMP3M, MG3, PHOS3 #### [facility] [address] [place] [address] MAGNESIUM Collected: 07/20/2018 Status: F Source: [place] 4:25 AM SYSTEM REPOSITORY TYPE CODE TESTS RESULT OUT OF REFERENCE UNITS RANGE LAB MG3 1.6-2.3 mg/dL Low Magnesium 1.5 Performed By: #### HEMOG, BMP3M, MG3, PHOS3 #### [facility] [address] PHOSPHORUS Collected: 07/20/2018 Status: F Source: [place] 4:25 AM SYSTEM REPOSITORY TYPE CODE TESTS RESULT OUT OF RANGE REFERENCE UNITS LAB PHOS3 2.5-4.5 mg/dL Normal Phosphorus 4.3 Performed By: #### HEMOG, BMP3M, MG3, PHOS3 #### [facility] [address] [place] [address] Observed: 07/19/2018 Status: F Source: [place] CLOSTRIDIUM DIFFICILE 10:53 PM SYSTEM REPOSITORY PCR [...] be submitted. Performed By: #### CDPCR #### [facility] [address] HEMOGRAM Collected: 07/19/2018 Status: F Source: [place] 5:29 AM SYSTEM REPOSITORY TYPE CODE TESTS [...] By: #### HEMOG, BMP3M, MG3, PHOS3 #### [facility] [address] [place] [phone] BASIC METABOLIC PANEL Collected: 07/19/2018 Status: F Source: [place] 5:29 AM SYSTEM REPOSITORY TYPE CODE TESTS [...] By: #### HEMOG, BMP3M, MG3, PHOS3 #### [facility] [address] [place] [phone] MAGNESIUM Collected: 07/19/2018 Status: F Source: [place] 5:29 AM SYSTEM REPOSITORY TYPE CODE TESTS RESULT OUT OF RANGE REFERENCE UNITS LAB MG3 1.6-2.3 mg/dL Normal Magnesium 1.6 Performed By: #### HEMOG, BMP3M, MG3, PHOS3 #### [facility] [address] [address] PHOSPHORUS Collected: 07/19/2018 Status: F Source: [place] 5:29 AM SYSTEM REPOSITORY TYPE CODE TESTS RESULT OUT OF RANGE REFERENCE UNITS LAB PHOS3 2.5-4.5 mg/dL Normal Phosphorus 3.4 Performed By: #### HEMOG, BMP3M, MG3, PHOS3 #### [facility] [address] [address] HEMOGRAM Collected: 07/18/2018 Status: F Source: [place] 5:02 AM SYSTEM REPOSITORY TYPE CODE TESTS [...] By: #### HEMOG, BMP3M, MG3, PHOS3 #### [address] [address] BASIC METABOLIC PANEL Collected: 07/18/2018 Status: F Source: [place] 5:02 AM SYSTEM REPOSITORY TYPE CODE TESTS [...] By: #### HEMOG, BMP3M, MG3, PHOS3 #### [facility] [address] [place] [phone] MAGNESIUM Collected: 07/18/2018 Status: F Source: [place] 5:02 AM SYSTEM REPOSITORY TYPE CODE TESTS RESULT OUT OF RANGE REFERENCE UNITS LAB MG3 1.6-2.3 mg/dL Normal Magnesium 1.6 Performed By: #### HEMOG, BMP3M, MG3, PHOS3 #### [facility] [address] [place] [phone] PHOSPHORUS Collected: 07/18/2018 Status: F Source: [place] 5:02 AM SYSTEM REPOSITORY TYPE CODE TESTS RESULT OUT OF RANGE REFERENCE UNITS LAB PHOS3 2.5-4.5 mg/dL Normal Phosphorus 3.5 Performed By: #### HEMOG, BMP3M, MG3, PHOS3 #### [facility] [address] [place] [phone] BASIC METABOLIC PANEL Collected: 07/17/2018 Status: F Source: [place] 2:00 PM SYSTEM REPOSITORY TYPE CODE TESTS [...] Calcium 7.5 Performed By: #### BMP3 #### [facility] [address], [place] LACTIC ACID Collected: 07/17/2018 Status: F Source: [place] 11:25 AM SYSTEM REPOSITORY TYPE CODE TESTS RESULT OUT OF REFERENCE UNITS RANGE LAB LACT3 0.7-2.0 mmol/L Low Lactic Acid < 0.5 Performed By: #### LACT3 #### [facility] [place], [place] Observed: 07/17/2018 Status: F Source: [place] CULTURE URINE 8:28 AM SYSTEM REPOSITORY Order Comment: Specimen Source Comment:Urine, clean catch CULTURE URINE --> Status: F Normal urogenital elham present. Performed By: #### C/UR #### [facility] [address] [place] [address] CT ABDOMEN/PELVIS W/ Observed: 07/17/2018 Status: F Source: [place] CONTRAST 5:09 AM SYSTEM REPOSITORY Patient Name: DAHLIA MARINO CT Exam Date/Time 07/17/2018 05:32:[address] Abdomen/Pelvis w/ IV Contrast (IV Onl Ordering Physician MD JAMIR, IRENE Gray Accession Number [id number] CPT4 Codes 37683 (CT Abdomen/Pelvis w/ IV Contrast (IV Onl), Q9967 (CT ISOVUE 370MG/[id number]) Reason For Exam recent abscess due to [...] 07/17/2018 5:09 Observed: 07/17/2018 Status: F Source: [place] CULTURE BLOOD 4:57 AM SYSTEM REPOSITORY Order Comment: Specimen Source Comment:Blood CULTURE BLOOD --> Status: F No growth at 5 days. Performed By: #### C/BLD #### [facility] [address] [place] [phone] Observed: 07/17/2018 Status: F Source: [place] CULTURE BLOOD (TWO) 4:01 AM SYSTEM REPOSITORY Order Comment: Specimen Source Comment:Blood CULTURE BLOOD (Two) --> Status: F No growth at 5 days. Performed By: #### C/BLT #### [facility] [address] [place] [phone] HEMOGRAM W/ AUTODIFF Collected: 07/17/2018 Status: F Source: [place] 4:00 AM SYSTEM REPOSITORY TYPE CODE TESTS [...] LIPA4, LFT3, BMP3, CRP2, ESR, PCAL #### [facility] [address] [place] [phone] LACTIC ACID Collected: 07/17/2018 Status: F Source: [place] 4:00 AM SYSTEM REPOSITORY TYPE CODE TESTS RESULT OUT OF RANGE REFERENCE UNITS LAB LACT3 0.7-2.0 mmol/L Normal Lactic Acid 1.2 Performed By: #### HEMDF, LACT3, LIPA4, LFT3, BMP3, CRP2, ESR, PCAL #### [facility] [address] [place] [phone] LIPASE Collected: 07/17/2018 Status: F Source: [place] 4:00 AM SYSTEM REPOSITORY TYPE CODE TESTS RESULT OUT OF RANGE REFERENCE UNITS LAB LIPA4 23-300 U/L Normal Lipase 38 Performed By: #### HEMDF, LACT3, LIPA4, LFT3, BMP3, CRP2, ESR, PCAL #### [facility] [address] [place] [phone] HEPATIC FUNCTION Collected: 07/17/2018 Status: F Source: [place] 4:00 AM SYSTEM REPOSITORY TYPE CODE TESTS [...] LIPA4, LFT3, BMP3, CRP2, ESR, PCAL #### [facility] [address] [place] [phone] BASIC METABOLIC PANEL Collected: 07/17/2018 Status: F Source: [place] 4:00 AM SYSTEM REPOSITORY TYPE CODE TESTS [...] LIPA4, LFT3, BMP3, CRP2, ESR, PCAL #### [facility] [address] [place] [address] C-REACTIVE PROTEIN Collected: 07/17/2018 Status: F Source: [place] 4:00 AM SYSTEM REPOSITORY TYPE CODE TESTS RESULT OUT OF REFERENCE UNITS RANGE LAB 2CRP 0.0-6.0 mg/L High C-Reactive 11.6 Protein Result Comment: . Performed By: #### HEMDF, LACT3, LIPA4, LFT3, BMP3, CRP2, ESR, PCAL #### [facility] [address] [place] [address] SED RATE Collected: 07/17/2018 Status: F Source: [place] 4:00 AM SYSTEM REPOSITORY TYPE CODE TESTS RESULT OUT OF RANGE REFERENCE UNITS LAB ESR 0-20 mm/h High Sed Rate 27 Performed By: #### HEMDF, LACT3, LIPA4, LFT3, BMP3, CRP2, ESR, PCAL #### [facility] [address] [place] [address] PROCALCITONIN Collected: 07/17/2018 Status: F Source: [place] 4:00 AM SYSTEM REPOSITORY TYPE CODE TESTS RESULT OUT OF REFERENCE UNITS RANGE LAB PRO <0.10 ng/mL Procalcitonin Normal < 0.10 LAB INT3 NA Interpretation See Below Result Comment: PCT <0.50 = Low risk of severe sepsis and/or septic shock. PCT >2.00 = High risk of severe sepsis and/or septic shock. Performed By: #### HEMDF, LACT3, LIPA4, LFT3, BMP3, CRP2, ESR, PCAL #### [facility] [address] [place] [address] ED PROVIDER NOTE Observed: 07/17/2018 Status: F Source: [place] 2:30 AM SYSTEM REPOSITORY [facility] EMERGENCY DEPT eMERGENCY dEPARTMENT eNCOUnter Pt Name: Dahlia Marino Birthdate 1970 Date of evaluation: 07/17/2018 Provider: Irene Marlow MD Chief Complaint: No chief complaint on file. PILOT STATION: Dahlia Marino is a 48 y.o. female [...] antibiotics in the hospital. She is from [place] but was referred here because the hospital [...] by myself in the absence of a quality systems technician) none Chart review shows recent radiographs: Ct Abdomen Pelvis W Contrast Result Date: 07/02/2018 Patient Name: DAHLIA MARINO ---CT--- Exam Date/Time 07/02/2018 07:47:[address] Abdomen/Pelvis w/ IV Contrast (IV Onl Ordering Physician MD IVIS, MPH, MICHELINE Accession Number [id number] CPT4 Codes 13417 (CT Abdomen/Pelvis w/ IV Contrast (IV Onl), Q9967 (CT ISOVUE 370MG/[id number]) Reason For Exam Crohns flare, known abscess [...] PROVIDER NOTE Observed: 07/17/2018 Status: F Source: [place] 2:30 AM SYSTEM REPOSITORY Emergency Department Encounter Location: [facility] EMERGENCY DEPT Patient: Dahlia Marino : 1970 [...] # 1.4 1.0 - 4.3 10*3/uL Absolute Morris # 1.2 (H) 0.0 - 0.8 10*3/uL [...] eGFR >60.0 >60 mL/min EGFR IF NonAfrican Portuguese >60.0 >60 mL/min Calcium 8.1 (L) 8.4 [...] Physician MD JAMIR, IRENE Gray Accession Number [id number] CPT4 Codes 39933 (CT Abdomen/Pelvis w/ IV Contrast (IV Onl), Q9967 (CT ISOVUE 370MG/[id number]) Reason For Exam recent abscess due to [...] DISCHARGE SUMMARY Observed: 07/04/2018 Status: F Source: [place] 11:29 AM SYSTEM REPOSITORY Attestation signed by [...] x8, on gregory), hypothyroidism, fibromyalgia presented to [facility] w/ progressive 6 week hx of abdominal pain. She was first seen at [facility] in [place], [place] 6wks prior to admission for abdominal [...] in the urine. CT abdomen done at [facility] (07/01/18) which showed a complex inflammatory collection/mass in anterior RLQ abscess. Patient was then transferred to [facility] the same day for further management and a second opinion. Patient and then requested transfer to [facility] as they have had family treated here [...] DISCHARGE MEDICATIONS: Dahlia Marino Home Medication Instructions MARLYN:[id number] Printed on:07/05/18 1006 Medication Information adalimumab (HUMIRA) [...] Complexity: follow up within 7-14 calendar days (35830) [] Severe Complexity: follow up within 7 calendar days (18890) FOLLOW UP TESTING, PENDING RESULTS OR REFERRALS [...] W/ AUTODIFF Collected: 07/04/2018 Status: F Source: [place] 5:08 AM SYSTEM REPOSITORY TYPE CODE TESTS [...] #### HEMDF, BMP3M, MG3, PHOS3, LFT3 #### [facility] [address] [place] [address] BASIC METABOLIC PANEL Collected: 07/04/2018 Status: F Source: [place] 5:08 AM SYSTEM REPOSITORY TYPE CODE TESTS [...] #### HEMDF, BMP3M, MG3, PHOS3, LFT3 #### [facility] [address] [place] [phone] MAGNESIUM Collected: 07/04/2018 Status: F Source: [place] 5:08 AM SYSTEM REPOSITORY TYPE CODE TESTS RESULT OUT OF RANGE REFERENCE UNITS LAB MG3 1.6-2.3 mg/dL Normal Magnesium 1.8 Performed By: #### HEMDF, BMP3M, MG3, PHOS3, LFT3 #### [facility] [address] [place] [phone] PHOSPHORUS Collected: 07/04/2018 Status: F Source: [place] 5:08 AM SYSTEM REPOSITORY TYPE CODE TESTS RESULT OUT OF RANGE REFERENCE UNITS LAB PHOS3 2.5-4.5 mg/dL Normal Phosphorus 3.8 Performed By: #### HEMDF, BMP3M, MG3, PHOS3, LFT3 #### [facility] [address] [place] [phone] HEPATIC FUNCTION Collected: 07/04/2018 Status: F Source: [place] 5:08 AM SYSTEM REPOSITORY TYPE CODE TESTS [...] #### HEMDF, BMP3M, MG3, PHOS3, LFT3 #### [facility] [address] [place] [phone] HEMOGRAM W/ AUTODIFF Collected: 07/03/2018 Status: F Source: [place] 2:31 AM SYSTEM REPOSITORY TYPE CODE TESTS [...] By: #### HEMDF, MG3, PHOS3, BMP3M #### [facility] [address] [place] [address] MAGNESIUM Collected: 07/03/2018 Status: F Source: [place] 2:31 AM SYSTEM REPOSITORY TYPE CODE TESTS RESULT OUT OF RANGE REFERENCE UNITS LAB MG3 1.6-2.3 mg/dL Normal Magnesium 2.1 Performed By: #### HEMDF, MG3, PHOS3, BMP3M #### [facility] [place], [place] PHOSPHORUS Collected: 07/03/2018 Status: F Source: [place] 2:31 AM SYSTEM REPOSITORY TYPE CODE TESTS RESULT OUT OF RANGE REFERENCE UNITS LAB PHOS3 2.5-4.5 mg/dL Normal Phosphorus 3.8 Performed By: #### HEMDF, MG3, PHOS3, BMP3M #### [facility] [address] [place] [address] BASIC METABOLIC PANEL Collected: 07/03/2018 Status: F Source: [place] 2:31 AM SYSTEM REPOSITORY TYPE CODE TESTS [...] By: #### HEMDF, MG3, PHOS3, BMP3M #### [facility] [address] [place] [address] URINALYSIS,MACRO Collected: 07/03/2018 Status: F Source: [place] 2:23 AM SYSTEM REPOSITORY TYPE CODE TESTS RESULT OUT OF REFERENCE UNITS RANGE LAB APPUR Clear NA Appearance Cloudy LAB COLUR Lt. Yellow NA Color Yellow LAB USG 1.005-1.030 NA Specific Normal Koppel,Urine 1.015 LAB UPH 5.0-8.0 NA pH,Urine Normal [...] 250 Performed By: #### UAMAC, UAMIC #### [facility] [address] [place] [address] URINALYSIS,MICROSCOPIC Collected: Status: F Source: [place] 07/03/2018 2:23 AM HEALTH SYSTEM REPOSITORY TYPE CODE TESTS RESULT OUT OF REFERENCE UNITS RANGE LAB WBCU 0-5 /[HPF] 26 WBC,Urine - 50 LAB RBCU 0-2 /[HPF] 11 RBC,Urine - 25 LAB EPIU 3-5 /[HPF] 0 Epithelial Cells - 2 LAB LLILIAM Negative NA Bacteria Many (51-100) LAB AMPH Negative NA Amorphous Moderate Phosphates (6-50) Performed By: #### UAMAC, UAMIC #### [facility] [place] [address] Observed: 07/03/2018 Status: F Source: [place] CULTURE URINE 2:23 AM SYSTEM REPOSITORY Order Comment: Specimen Source Comment:Urine, clean catch CULTURE URINE --> Status: F No growth (<1,000 CFU/ml). Performed By: #### C/UR #### [facility] [address] [address] [address] ABDOMEN/PELVIS W/ Observed: 07/02/2018 Status: F Source: [place] CONTRAST 8:06 AM SYSTEM REPOSITORY Patient Name: DAHLIA MARINO CT Exam Date/Time 07/02/2018 07:47:[address] Abdomen/Pelvis w/ IV Contrast (IV Onl Ordering Physician MD IVIS, MPH, MICHELINE Accession Number [id number] CPT4 Codes 19801 (CT Abdomen/Pelvis w/ IV Contrast (IV Onl), Q9967 (CT ISOVUE 370MG/[id number]) Reason For Exam Crohns flare, known abscess [...] 8:06 URINALYSIS,MACRO Collected: 07/02/2018 Status: F Source: [place] 1:59 AM SYSTEM REPOSITORY TYPE CODE TESTS RESULT OUT OF REFERENCE UNITS RANGE LAB APPUR Clear NA Appearance Clear LAB COLUR Lt. Yellow NA Color P. Yellow LAB USG 1.005-1.030 NA Specific Normal Koppel,Urine 1.010 LAB UPH 5.0-8.0 NA pH,Urine Normal [...] 25 Performed By: #### UAMAC, UAMIC #### [facility] [address] [address] URINALYSIS,MICROSCOPIC Collected: Status: F Source: [facility] 07/02/2018 1:59 AM HEALTH SYSTEM REPOSITORY TYPE CODE TESTS RESULT OUT OF REFERENCE UNITS RANGE LAB WBCU 0-5 /[HPF] 11 WBC,Urine - 25 LAB RBCU 0-2 /[HPF] 3 RBC,Urine - 5 LAB EPIU 3-5 /[HPF] 3 Epithelial Cells - 5 LAB LILLIAM Negative NA Bacteria Moderate (6-50) Performed By: #### UAMAC, UAMIC #### [facility] [address] [place] [address] Observed: 07/02/2018 Status: F Source: [place] BLOOD 1:45 AM SYSTEM REPOSITORY Order Comment: Specimen Source Comment:Blood CULTURE BLOOD --> Status: F No growth at 5 days. Performed By: #### C/BLD #### [facility] [address] [place] [address] Observed: 07/02/2018 Status: F Source: [place] BLOOD (TWO) 1:45 AM SYSTEM REPOSITORY Order Comment: Specimen Source Comment:Blood CULTURE BLOOD (Two) --> Status: F No growth at 5 days. Performed By: #### C/BLT #### [facility] [address] [place] [address] HEMOGRAM W/ AUTODIFF Collected: 07/02/2018 Status: F Source: [place] 1:37 AM SYSTEM REPOSITORY TYPE CODE TESTS [...] LACT3, TSH5, CMP3, MG3, FT4M, TROPN #### [facility] [address] [place] [phone] PROTHROMBIN TIME Collected: 07/02/2018 Status: F Source: [place] 1:37 AM SYSTEM REPOSITORY TYPE CODE TESTS [...] LACT3, TSH5, CMP3, MG3, FT4M, TROPN #### [facility] [address] [place] [phone] LACTIC ACID Collected: 07/02/2018 Status: F Source: [place] 1:37 AM SYSTEM REPOSITORY TYPE CODE TESTS RESULT OUT OF REFERENCE UNITS RANGE LAB LACT3 0.7-2.0 mmol/L Low Lactic Acid 0.6 Performed By: #### HEMDF, PT, LACT3, TSH5, CMP3, MG3, FT4M, TROPN #### [facility] [address] [place] [phone] THYROID STIM. Collected: 07/02/2018 Status: F Source: [place] HORMONE 1:37 AM SYSTEM REPOSITORY TYPE CODE TESTS RESULT OUT OF REFERENCE UNITS RANGE LAB TSH5 0.465-4.680 u[IU]/mL Low Thyroid Stim. 0.175 Hormone Performed By: #### HEMDF, PT, LACT3, TSH5, CMP3, MG3, FT4M, TROPN #### [facility] [address] [place] [phone] COMP METABOLIC PANEL Collected: 07/02/2018 Status: F Source: [place] 1:37 AM SYSTEM REPOSITORY TYPE CODE TESTS [...] LACT3, TSH5, CMP3, MG3, FT4M, TROPN #### [facility] [address] [place] [phone] MAGNESIUM Collected: 07/02/2018 Status: F Source: [facility] 1:37 AM SYSTEM REPOSITORY TYPE CODE TESTS RESULT OUT OF REFERENCE UNITS RANGE LAB MG3 1.6-2.3 mg/dL Low Magnesium 1.5 Performed By: #### HEMDF, PT, LACT3, TSH5, CMP3, MG3, FT4M, TROPN #### [facility] [address] [place] [address] FREE T4 Collected: 07/02/2018 Status: F Source: [place] 1:37 AM SYSTEM REPOSITORY TYPE CODE TESTS RESULT OUT OF RANGE REFERENCE UNITS LAB FT4M 0.78-2.19 ng/dL Normal Free T4 1.87 Performed By: #### HEMDF, PT, LACT3, TSH5, CMP3, MG3, FT4M, TROPN #### [facility] [address] [place] [address] TROPONIN I Collected: 07/02/2018 Status: F Source: [place] 1:37 AM SYSTEM REPOSITORY TYPE CODE TESTS RESULT OUT OF RANGE REFERENCE UNITS LAB TROP4 0.000-0.034 ng/mL Normal Troponin I < 0.012 Result Comment: 0.046 - 0.400 = Indeterminate > 0.400 = Consider Myocardial Injury Performed By: #### HEMDF, PT, LACT3, TSH5, CMP3, MG3, FT4M, TROPN #### [facility] [address] [place], [place] [phone] ED PROVIDER NOTE Observed: 07/02/2018 Status: F Source: [place] 12:02 AM SYSTEM REPOSITORY Emergency Department Encounter [facility] 6W MED SURG Patient: Dahlia Mairno : 1970 Date of Evaluation: 07/02/2018 ED [...] the past few weeks, was seen at [facility]. yesterday, CT there showed an intra-abdominal mass [...] otherwise acutely negative except as in the PILOT STATION. Past History Past Medical History: Diagnosis Date [...] # 1.6 1.0 - 4.3 10*3/uL Absolute Morris # 1.4 (H) 0.0 - 0.8 10*3/uL [...] eGFR >60.0 >60 mL/min EGFR IF NonAfrican Portuguese >60.0 >60 mL/min Calcium 8.0 (L) 8.4 [...] UA P. Yellow Lt. Yellow NA Specific Koppel, Urine 1.010 1.005 - 1.030 NA pH, [...] me Rhythm: normal sinus Rate: normal, 83 [place]: normal Ectopy: none Conduction: normal ST Segments: [...] 12:02 AM SYSTEM REPOSITORY Emergency Department Encounter [facility] EMERGENCY DEPT Patient: Dahlia Marino : 1970 Date of Evaluation: 07/02/2018 ED Provider: BLAIR HOLDEN CNP As the [id number], I performed a medical screening history and [...] per patient and family. They were at [facility] earlier this morning. Per report from family CT was done with oral contrast finding possible abscess below her liver. He was transferred [facility] without their knowledge. Family states they thought she was coming here. He was at [facility] day and that concerns about her care [...] NURSING PROG Observed: 07/01/2018 Status: COMPLETED Source: [place] 11:34 PM [facility] REPOSITORY HNO ID: [id number] Author: Meme (Rn) EZEKIEL Ramsay Service: Emergency [...] this. I personally spoke with Winter Paez HOME MAKER, requested further order to check labs including [...] bleeding. PROGRESS Observed: 07/01/2018 Status: COMPLETED Source: [place] 11:15 PM [facility] HNO ID: [id number] Author: Jeannine (Clayton) BLAIR Womack.CLAYTON Service: (none) Author Type: Nurse Practitioner Type: Progress Notes Filed: 07/01/2018 11:51 PM Note Text: CTBS for patient requesting to leave AMA. Nursing supervisor fryer farm on floor speaking with patient and family. [...] of testing. Family is taking patient to [facility] ED at this time. Pt is alert and oriented x 3, capable of making decisions. AMA paperwork filled out and signed at bedside. Jeannine Womack CNP NURSING PROG Observed: 07/01/2018 Status: COMPLETED Source: [place] 9:25 PM [facility] OTHER [facility] REPOSITORY HNO ID: [id number] Author: Ester (Rn) EZEKIEL Kamara Service: (none) [...] AND PELVIS Observed: 07/01/2018 Status: F Source: [facility] WITH CONTRAST 8:57 PM HEALTH SYSTEM REPOSITORY Performed at [facility] APPROVED BY: Zia Maurer MD Exam Title: [...] advised. CONSULT Observed: 07/01/2018 Status: COMPLETED Source: [place] 4:02 PM [facility] REPOSITORY [facility] ID: [id number] Author: Misty Mcdonald Service: General Surgery Author [...] returned and got worse. Patient presented to [facility] ED where CT Abd/Pelvis showed a possible [...] CONSULT PROG Observed: 07/01/2018 Status: COMPLETED Source: [place] 3:57 PM [facility] OTHER [facility] REPOSITORY O ID: [id number] Author: Kamran Colon Service: Gastroenterology Author Type: Nurse Practitioner [...] ago per patient) who presented to the [facility] ED for abdominal pain. She stated she [...] she called EMS who transferred her to [facility]. In the ED her abdominal CT revealed possible abscess vs neoplasms so she was transferred to [facility]. She denied melena, hematochezia, hematemesis, and [...] about 3-4 years ago (no record in [facility]). FUNCTIONAL STATUS: Independent PAST MEDICAL HISTORY [...] patient 3-4 years ago (no record in [facility]) Assessment AND Plan: Repeat Abdominal CT [...] patient 3-4 years ago (no record in [facility]) Assessment AND Plan: Need records from [facility] in [place]. SIGNATURE: Kamran Colon APRN.CNP PATIENT NAME: Dahlia Marino DATE: July 01, 2018 TIME: 3:57 PM PAGER: NUTRITION Observed: 07/01/2018 Status: COMPLETED Source: [place] 3:47 PM CLINIC OTHER CAMPUS REPOSITORY HNO ID: [id number] Author: Argentina Zuluaga RD (Ld) Service: Nutrition [...] gm protein per serving and vanilla Boost [facility] QD, to provide 530 kcal and [...] nutritional status Reason for Assessment: Consult from [facility] for patient with 28 lbs weight loss in 4 weeks. Per HPI: This is a 47 year old female with PMH of crohns, hypothyroid, wallace, ape, liver sx d/t infection who presents to the [facility] from [facility]. Pt called EMS and had them take [...] ENSURE CLEAR MIXED PEREZ Supplement 2: BOOST [facility] VANILLA Lines and Drains: Peripheral 07/01/18 [...] Admitted) 07/01/18 0700 - 07/02/18 0659 Shift 3730-2531 0402-6775 24 Hour Total 4189-7404 6459-6967 9000-8865 24 Hour Total I N T A [...] July 01, 2018 TIME: 4:25 PM PAGER: [phone] CEA Collected: 07/01/2018 Status: F Source: [facility] 1:55 PM HEALTH SYSTEM REPOSITORY TYPE CODE TESTS RESULT OUT OF RANGE REFERENCE UNITS LAB CEA(LOINC) 0.0-3.0 ng/mL CEA 2.5 Result Comment: The reference range shown is for adult non-smokers. The range for smokers is 0-5.0 Testing performed by Chemiluminescence LOCI. Performed By: #### CEA #### [place] [address] MAGNESIUM BLOOD Collected: 07/01/2018 Status: F Source: [facility] 1:55 PM HEALTH SYSTEM REPOSITORY TYPE CODE TESTS RESULT OUT OF REFERENCE UNITS RANGE LAB MAG(LOINC) 1.6-2.6 mg/dL Magnesium Blood 1.6 Performed By: #### MAG #### [place] [address] Observed: 07/01/2018 Status: F Source: [facility] CULT BLOOD 12:00 PM HEALTH SYSTEM REPOSITORY Test performed at [facility] No growth Performed By: #### C_BLO #### [place] [address] HEMOGRAM Collected: 07/01/2018 Status: F Source: [facility] 11:55 AM HEALTH SYSTEM REPOSITORY TYPE [...] MPV 9.8 Performed By: #### CBC1 #### [place] [address] LACTIC ACID Collected: 07/01/2018 Status: F Source: [facility] 11:55 AM HEALTH SYSTEM REPOSITORY TYPE CODE TESTS RESULT OUT OF REFERENCE UNITS RANGE LAB LAC(LOINC) 0.4-2.0 mEq/L Lactic Acid 0.4 Performed By: #### LAC #### [place] [address] PHOSPHORUS BLOOD Collected: 07/01/2018 Status: F Source: [facility] 11:55 AM HEALTH SYSTEM REPOSITORY TYPE CODE TESTS RESULT OUT OF REFERENCE UNITS RANGE LAB PHOS(LOINC 2.5-4.9 mg/dL ) Phosphorus Blood 3.8 Performed By: #### PHOS #### [place] [address] CRP Collected: 07/01/2018 Status: F Source: [facility] 11:55 AM HEALTH SYSTEM REPOSITORY TYPE CODE TESTS RESULT OUT OF RANGE REFERENCE UNITS LAB CRP3(LOINC) 0.00-0.30 mg/dL High CRP 8.04 Performed By: #### CRP3 #### [facility] [address] [place] [address] COMPREHENSIVE PANEL Collected: 07/01/2018 Status: F Source: [facility] 11:55 AM HEALTH SYSTEM REPOSITORY TYPE [...] Gap 12 Performed By: #### P14 #### [place] [address] MDRD GFR Collected: 07/01/2018 Status: F Source: [facility] 11:[facility] REPOSITORY TYPE CODE TESTS RESULT OUT OF RANGE REFERENCE UNITS LAB GFRFN(LOINC >60mL/min/1.73m ) 2 eGFR >60 Result Comment: If the patient is , multiply the result by 1.210. Performed By: #### GFR #### [facility] [address] [place] [id number] PROTIME Collected: 07/01/2018 Status: F Source: [facility] 11:[address] [place] [address] SYSTEM REPOSITORY TYPE CODE TESTS RESULT OUT OF REFERENCE UNITS RANGE LAB PTI(LOINC) 9.7-13.0 sec Prothrombin Time 11.7 LAB INR(LOINC) 0.90-1.30 INR 1.14 Result Comment: Note: Reference Range Change Vitamin K Antagonist (VKA) Therapeutic Range: INR 2 to 3 (Target INR of 2.5) Note: For patients treated with VKA drugs, such as warfarin, the [employer] 2012 Guideline recommends [...] 70: 252-289 Performed By: #### PT #### [place] [address] ACTIVATED PTT Collected: 07/01/2018 Status: F Source: [facility] 11:[address] [place] [address] SYSTEM REPOSITORY TYPE CODE TESTS RESULT OUT [...] laboratory APTT reagent in use throughout the [facility]. Performed By: #### APTT #### [facility] [address] [place], [place] [address] SED RATE Collected: 07/01/2018 Status: F Source: [facility] 11:55 AM HEALTH SYSTEM REPOSITORY TYPE CODE TESTS RESULT OUT OF RANGE REFERENCE UNITS LAB ESR(LOINC) 0-20 mm/hr High Sed Rate 38 Performed By: #### ESR #### [facility] [address] [place], [place] [address] HISTORY PHYSICAL Observed: 07/01/2018 Status: COMPLETED Source: [place] 11:14 AM CLINIC OTHER CAMPUS REPOSITORY HNO ID: [id number] Author: Meryl Hogan Service: Hospital Medicine Author Type: Nurse Practitioner Type: HANDP Filed: 07/01/2018 11:50 AM Note Text: Attestation signed by Jose Altamirano at 2018 5:50 PM (Updated) I have personally seen and examined the patient. I agree with the TRANSMISSION SUPERVISOR's note with following addition. Ms Marino, a 47 years old lady who has hx of UC and is on Humira Q week (last dose 2 weeks ago) under care of GI (? Dr Bender in [facility]) and multiple bowel surgeries including bowel resection, has abdominal pain for more than a month initially in lower part now generalized worse with food. Has fever in the last few days. Normal BM (reported diarrhea to [facility]), no nausea. Was treated with flagyl for a week a month ago. Last c scope > 5 years ago and last surgery > 5 years ago. She presented to [facility] where she was noted to have leukocytosis [...] 2 weeks ago), under the care of typesetting machine operator/tender ? Dr Bender 4. Hx of multiple [...] sx d/t infection who presents to the [facility] from [facility]. Pt called EMS and had them take [...] July 01, 2018 TIME: 11:15 AM PAGER: [phone] CT ABDOMEN/PELVIS W Observed: 07/01/2018 Status: F [facility] 12[facility]42 AM [place] [address] Patient: DAHLIA MARINO Phone#: : 1970 Age: 47 Gender: F Pt. Type: ER Account: [id number] Location: 2 Ordering: DOROTEO TABOR Exam Date: 07/01/2018/0:28 Family Phys: MARLO Pj LANG Charge Code: 009534 Physician: Bingham Order #: [id number] DLP Dose#: 9.80 PROCEDURE: CT ABDOMEN/PELVIS WITH [...] 47 Gender: F Pt. Type: ER Account: [id number] Location: 052 Ordering: DOROTEO TABOR Exam Date: 07/01/2018/0:28 Family Phys: MARLO LANG Charge Code: 428714 Physician: Bingham Order #: [id number] DLP Dose#: 9.80 ABDOMINAL WALL: Normal. No [...] 8:50 URINALYSIS Collected: 07/01/2018 Status: F Source: [facility] 12:34 AM [facility] REPOSITORY TYPE CODE TESTS RESULT OUT [...] Urobilinog(LOINC) NORMAL: NORMAL Urobilinog NORM LAB Sp Koppel(LOINC) NORMAL: 1.010-1.030 Sp Koppel 1.015 LAB Nitrite(LOINC) NORMAL: NEGATIVE Nitrite NEG [...] LAB Yeast(LOINC) Yeast NONE Performed By: #### [id number] #### [facility],[address] [place] [address] Observed: 06/30/2018 Status: F Source: [facility] CULTURE BLOOD 11:25 PM [facility] REPOSITORY CULTURE BLOOD CULTURE BLOOD SET: 2 of 2 24HOUR REPORT NEGATIVE 48HOUR REPORT NEGATIVE 72HOUR REPORT NEGATIVE M I C R O B I O L O G Y R E P O R T FINAL Antimicrobial Susceptibility and Organism Identification Report Specimen Number : [id number] Requested : 06/30/18 Specimen Source : BLOOD Collected : 06/30/18 23:25 [place] [facility] Isolation : Emergency Room Received : 06/30/18 23:25 Requesting Physician : christina Patient/Specimen Tests and Comments Specimen Comments FINAL REPORT: No Growth at 5 Days Tech : Source : BLOOD ID # : [id number] FINAL Report Date : / / : Collected : 06/30/18 23:25 07/06/18.1142.BKO. 07/06/[email or web address].COMPLETE Performed By: #### [id number] #### [facility],[address] [place] [address] CBC Collected: 06/30/2018 Status: F Source: [facility] 10:45 PM [facility] REPOSITORY TYPE CODE TESTS RESULT OUT [...] x10EE3/U L Neut # High 10.00 LAB Morris #(LOINC) 0.20 - 1.00 x10EE3/U L Morris # High 1.30 LAB EO #(LOINC) 0.00 - 0.50 x10EE3/U L EO # 0.00 LAB Baso #(LOINC) 0.00 - 0.10 x10EE3/U L Baso # 0.10 LAB MANUAL DIFF([facility]) MANUAL DIFF N/A LAB MORPHOLOGY(INC ) MORPHOLOGY N/A Result Comment: {CD] Performed By: #### [id number] #### [place] [address] LACTATE Collected: 06/30/2018 Status: F Source: [facility] 10:45 PM [facility] REPOSITORY TYPE CODE TESTS RESULT OUT OF REFERENCE UNITS RANGE LAB LACTATE(MESSI 4.5 - 18.0 mg/dL NC) Low LACTATE 4.3 Performed By: #### [id number] #### [place] [address] CMP WITH EGFR Collected: 06/30/2018 Status: F Source: [facility] 10:45 PM [facility] REPOSITORY TYPE CODE TESTS RESULT OUT [...] OF AGE AND OLDER. Performed By: #### [id number] #### [place] [id number] LIPASE Collected: 06/30/2018 Status: F Source: [facility] 10:45 [facility] REPOSITORY TYPE CODE TESTS RESULT OUT OF REFERENCE UNITS RANGE LAB LIPASE(LOIN 18.0 - 51.0 U/L C) LIPASE 18.0 Performed By: #### [id number] #### [place] [id number] TROPONIN Collected: 06/30/2018 Status: F Source: [facility] 10:45 [facility] REPOSITORY TYPE CODE TESTS RESULT OUT OF [...] such as heterophile antibodies). Performed By: #### [id number] #### [place] [address] TSH Collected: 06/30/2018 Status: F Source: [facility] 10:45 PM [facility] REPOSITORY TYPE CODE TESTS RESULT OUT OF RANGE REFERENCE UNITS LAB TSH(LOINC) 0.34 - 5.60 uIU/ml Low TSH 0.17 Performed By: #### [id number] #### [place] [id number] Observed: 06/30/2018 Status: F Source: [facility] CULTURE BLOOD 10:45 [facility] REPOSITORY CULTURE BLOOD CULTURE BLOOD SET: 1 of 2 24HOUR REPORT NEGATIVE 48HOUR REPORT NEGATIVE 72HOUR REPORT NEGATIVE M I C R O B I O L O G Y R E P O R T FINAL Antimicrobial Susceptibility and Organism Identification Report Specimen Number : [id number] Requested : 06/30/18 Specimen Source : BLOOD Collected : 06/30/18 22:45 [place] of Isolation : Emergency Room Received : 06/30/18 22:45 Requesting Physician : christina Patient/Specimen Tests and Comments Specimen Comments FINAL REPORT: No Growth at 5 Days Tech : Source : BLOOD ID # : [id number] FINAL Report Date : / / : Collected : 06/30/18 22:45 07/06/18.1142.BKO. 07/06/18.1142.BKO.COMPLETE Performed By: #### [id number] #### [facility],[address] [place] [address] EMERGENCY REPORT Observed: 06/30/2018 Status: F Source: [facility] 9:55 PM [facility] REPORT NAME ACCOUNT SEX AGE ADMIT DISCHARGE PT MED. RECORD# NUMBER DATE DATE TYPE DAHLIA MARINO [id number] F 47 06/30/18 07/01/18 3 R [id number] ROOM: ER DATE OF : 1970 DICTATING [...] first contacted our surgical service here at [facility], who due to this patient's complicated medical history suggested transfer to [place] in [place]. I then contacted [place], who suggested contacting the [facility] due to her complicated history. I then contacted [facility], who was agreeable with accepting the patient. The patient was monitored in our Emergency Department throughout the night and then transferred in stable condition. Dictated By: Doroteo Tabor DO 07/01/18 07:00 JOB #: [id number] Transcribed By: jen 07/01/18 09:44 Electronically signed by: E-SIGN: Doroteo Tabor D.O. 07/08/18 06:49 Page 2 of 2 DAHLIA MARINO Emergency Room Report EMERGENCY REPORT Observed: 06/30/2018 Status: F Source: [facility] 9:55 PM [facility] REPORT NAME ACCOUNT SEX AGE ADMIT DISCHARGE PT MED. RECORD# NUMBER DATE DATE TYPE DAHLIA MARINO [id number] F 47 06/30/18 07/01/18 3 R [id number] ROOM: ER DATE OF : 1970 DICTATING [...] Lore Mujica DO 07/01/18 08:22 JOB #: [id number] Transcribed By: jen 07/01/18 10:00 Electronically signed by: E-Sign: LORE MUJICA MD 07/12/18 12:00 Page 1 of 1 DAHLIA MARINO Emergency Room Report EMERGENCY DEPARTMENT Observed: 05/11/2018 Status: F Source: [facility] REPORT 4:14 PM [facility] [place] [address] HEALTH INFORMATION MANAGEMENT EMERGENCY DEPARTMENT REPORT Patient: DAHLIA MARINO KATIA TAMEZ D.O. [id number] F Status: DEP ER ED Date of Service: 05/08/18 CHIEF COMPLAINT A 47-year-old female. Chief complaint: Vaginal problem. HISTORY OF PRESENT ILLNESS The patient says she has had a recurrent yeast infection. She has had a discolored discharge. She has had a hysterectomy. She does not have a superintendent of generation. No other complaints. No abdominal pain, just [...] I am going to refer her to [facility] for followup. <Electronically signed by KATIA TAMEZ D.O.> 05/12/18 0538 KATIA TAMEZ D.O. cc: KATIA TAMEZ D.O. << Signature on File>> Reported By: KATIA TAMEZ D.O. Signed By: KATIA TAMEZ D.O. Tests performed at: [address] [address] ED PROV NOTE Observed: 05/11/2018 Status: COMPLETED Source: [facility] 4:14 PM [facility] REPOSITORY HNO ID: [id number] Author: Katia Tamez Service: (none) Author Type: Physician Type: ED Provider Notes Filed: 06/23/2018 9:00 PM Note Text: [place] [address] HEALTH INFORMATION MANAGEMENT EMERGENCY DEPARTMENT REPORT Patient: DAHLIA MARINO KATIA TAMEZ D.O. [id number] F Status: [facility] ER ED Date of Service: 05/08/18 CHIEF COMPLAINT A 47-year-old female. Chief complaint: Vaginal problem. HISTORY OF PRESENT ILLNESS The patient says she has had a recurrent yeast infection. She has had a discolored discharge. She has had a hysterectomy. She does not have a superintendent of generation. No other complaints. No abdominal pain, just [...] I am going to refer her to [facility] for followup. <Electronically signed by KATIA TAMEZ D.O.> 05/12/18 0538 KATIA TAMEZ D.O. cc: KATIA TAMEZ D.O. << Signature on File>> Reported By: KATIA TAMEZ D.O. Signed By: KATIA TAMEZ D.O. Tests performed at: [address] [address] Observed: 05/08/2018 Status: F Source: [facility] 3:09 AM HOSPITAL REPOSITORY WET PREP FEW EPITHELIAL CELLS MANY WBC'S FEW RBC'S NEGATIVE FOR YEAST NEGATIVE FOR TRICHOMONAS Performed By: #### [id number] #### [facility] - [facility] [address] [place] [address] EMERGENCY REPORT Observed: 01/09/2018 Status: F Source: K[facility]IF [place] 7:13 PM [facility] [place] [facility] NAME ACCOUNT SEX AGE ADMIT DISCHARGE PT MED. RECORD# NUMBER DATE DATE TYPE DAHLIA MARINO [id number] F 47 12/28/17 12/28/17 3 R [id number] ROOM: ER DATE OF : 1970 DICTATING [...] the coronary arteries by Dr. Haque in [place]. She states that she has had an [...] sinus mechanism without an evidence of acute [place]. Rate was 93 and this was done [...] Mor Douglass DO 05/08/18 06:44 JOB #: [id number] Transcribed By: sp 12/29/17 05:54 Electronically signed by: E-SIGN MOR RAFAT ARSHAD 01/09/18 19:10 Page 2 of 2 DAHLIA MARINO Emergency Room Report CBC Collected: 12/28/2017 Status: F Source: KASHIF KE[place] 4:10 AM [facility] REPOSITORY TYPE CODE TESTS RESULT OUT [...] x10EE3/U L Neut # High 10.70 LAB Morris #(LOINC) 0.20 - 1.00 x10EE3/U L Morris # 0.50 LAB EO #(LOINC) 0.00 - 0.50 x10EE3/U L EO # 0.10 LAB Baso #(LOINC) 0.00 - 0.10 x10EE3/U L Baso # 0.00 LAB MANUAL DIFF(LOINC) MANUAL DIFF N/A LAB MORPHOLOGY(LOINC ) MORPHOLOGY N/A Result Comment: {CD] Performed By: #### [id number] #### [facility],[address] [place] [address] CMP WITH EGFR Collected: 12/28/2017 Status: F Source: [facility] 4:10 AM [facility] REPOSITORY TYPE CODE TESTS RESULT OUT [...] OF AGE AND OLDER. Performed By: #### 658281 #### [place] [address] LIPASE Collected: 12/28/2017 Status: F Source: [facility] 4:10 [facility] REPOSITORY TYPE CODE TESTS RESULT OUT OF REFERENCE UNITS RANGE LAB LIPASE(LOIN 18.0 - 51.0 U/L C) LIPASE 25.0 Performed By: #### [id number] #### [place] [address] TROPONIN Collected: 12/28/2017 Status: F Source: [facility] 4:10 [facility] REPOSITORY TYPE CODE TESTS RESULT OUT OF [...] such as heterophile antibodies). Performed By: #### 480911 #### [place] [address]474 ALLERGIES ALLERGIES DATE TYPE / NAME / CODE REACTION SEVERITY SOURCE CODE 08/04/2018 Drug doxycycline/C250626 Other Unknown [place] Allergy/41 748(RXNORM) [facility]ly [facility] [id number]([facility]) Repository 08/04/2018 Drug erythromycin Hives Unknown [place] Allergy/41 base/[id number](RXN Formerly [facility] 8455386(SN ORM) [facility]) Repository 08/04/2018 Drug metronidazole/F0060 Other Unknown [place] Allergy/41 23377(RXNORM) [facility] 2865781([facility]) Repository 07/01/2018 DRUG DOXYCYCLINE SHORTNESS OF High [place] INGREDI/41 Clinic Other 3341263([facility]MED [facility]) Repository 07/01/2018 DRUG METRONIDAZOLE INTOLERANCE [place] INGREDI/41 Clinic Other 7448191([facility]MED [facility]) Repository 07/01/2018 DRUG AZITHROMYCIN SHORTNESS OF [place] INGREDI/41 Clinic Other 0001477([facility] OME [facility]) Repository NG/3752986 DOXYCYCLINE [facility] 06([facility]) Repository NG/6103085 METRONIDAZOLE [facility] 06([facility]) Repository NG/9542398 AZITHROMYCIN [facility] 06([facility]) Repository Drug DOXYCYCLINE/2743676 Moderate Kashif [place] Allergy/41 0(RXNORM) ([facility] 1429637(SN Modifier) [facility]) (Qualifier Repository Value) Drug FLAGYL/14898641(RXN Moderate Kashif [place] Allergy/41 ORM) ([facility] 2814111(SN Modifier) [facility]) (Qualifier Repository Value) Drug ERYTHROMYCIN/414843 Moderate Kashif [place] Allergy/41 26(RXNORM) ([facility] 9664066(SN Modifier) [facility]) (Qualifier Repository Value) ENCOUNTERS ENCOUNTERS ADMIT/DISCHARGE ACCOUNT NUMBER ADMITTING ENCOUNTER LOCATION SOURCE CLASS 08/09/2018 [id number] General acute hospital ding:MEDOUTP Repository 08/08/2018 [id number] General acute hospital ding:MEDOUTP Repository 08/07/2018/08/07/[id number] ding:MEDOUTP Repository 08/06/2018/08/06/[id number] ding:MEDOUTP Repository 08/05/2018 [id number] General acute hospital ding:MEDOUTP Repository 08/04/2018 [id number] Ambulatory Samara Samara [facility] ding:MEDOUTP Repository 08/04/2018 [id number] Ambulatory [facility] Repository 08/04/2018 [id number] Ambulatory [facility] Repository 08/03/2018 [id number] Ambulatory [place] [facility] ding:MEDOUTP Repository 08/02/2018 [id number] Ambulatory [place] Samara [facility] ding:MEDOUTP Repository 08/01/2018 [id number] [place]ulatory [place] [facility] ding:MEDOUTP Repository 07/31/2018/07/31/20 [id number] Ambulatory Samara Samara [address] [place] [address] [facility] Hospital ding:MEDOUTP Repository 07/30/2018/07/30/20 [id number] Ambulatory [place] [address] [place] [address] [facility] Hospital ding:MEDOUTP Repository Room: [facility] 07/29/2018 [id number] [place] [facility] ding[facility] Repository 07/29/2018 [id number] Ambulatory [facility] Repository 07/28/2018 [id number] Ambulatory [place] [facility] ding:MEDOUTP Repository 07/27/2018 [id number] Ambulatory [place] [facility] ding:MEDOUTP Repository 07/26/2018 [id number] Ambulatory Samara Samara [facility] ding:MEDOUTP Repository 07/26/2018 [id number] Ambulatory [facility] Repository 07/25/2018 [id number] Ambulatory [place] [facility] Hospital ding:MEDOUTP Repository 07/24/2018/07/24/20 [id number] Ambulatory [place] [address] [place] [address] [facility] Hospital ding:MEDOUTP Repository 07/23/2018/07/23/20 [id number] Ambulatory [place] Samara [address] [place] [address] [facility] Hospital ding:MEDOUTP Repository 07/22/2018 [id number] Ambulatory [place] [facility] Hospital ding:MEDOUTP Repository 07/21/2018 [id number] Ambulatory [facility] ding:MEDOUT Repository 07/17/2018 [id number] Inpatient Buildin[facility] Encounter 4NRoom: System [id number]: Repository [id number] 07/02/2018 [id number] Inpatient [facility] Encounter 6WRoom: System [id number]: Repository [id number] 07/01/2018/07/02/20 [id number] TETYUK, Inpatient [place] 18 [address] Encounter Clinic Other [place] Repository 07/01/2018/07/02/20 [id number] TETYUK, Inpatient AKRON [facility] 18 P[address]ELOPE Encounter [facility] MEDICAL Repository CENTERBuildi nRoom: 7121Bed: 06/30/2018/07/01/20 [id number] CHRISTINA, Emergency Buildin[address] [place] [address] 18 DOROTEO D Room: ERBed: [facility] Repository 05/08/2018/05/08/20 [id number] Emergency UNIBuilding: [address] Repository 12/28/2017/12/29/19 [id number] RAFAT, Emergency [address]in[address] [place] [address] 18 MOR DO Room: ERBed: [facility] Repository PAYERS PAYERS ENCOUNTER GUARANTOR 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 SOURCE 08/09/2018 DAHLIA Hathaway Primary Insurance:SELF NOT GIVENUNK [place] [id number] [facility] [place] Date:2018-07-26 Repository [address]Kkd: () 08/08/2018 DAHLIA Hathaway Primary Insurance:SELF NOT GIVENUNK [place] [id number] [facility]Y [facility] Number: Effective [facility], [place] Date:2018-07-26 Repository [address]Hpe: () 08/07/2018 DAHLIA Hathaway Primary Insurance:SELF NOT GIVENUNK [place] [id number] [facility]Y [facility] Number: Effective [facility] [place] Date:2018-07-26 Repository 55[address]Tfx: () 08/06/2018 DAHLIA Hathaway Primary Insurance:SELF NOT GIVENUNK [place] [id number] PAY INSURANCEPolicy Community [place] Number: Effective Hospital [facility] [place] Date:2018-07-26 Repository 74[address]Qdp: () 08/05/2018 DAHLIA R Primary Insurance:SELF NOT GIVENUNK [place] [id number] [facility]Y [facility] Number: Effective [facility] [place] Date:2018-07-26 Repository 511[address]Qwu: (HP) 08/04/2018 DAHLIA R Primary Insurance:SELF NOT GIVENUNK [place] [id number] [facility]Y [facility] Number: Effective [facility] [place] Date:2018-07-26 Repository 06[address]Mhj: () 08/04/2018 Dahlia Primary Dahlia BarkfrancisDOB: [facility] BarkfrancisDOB: Insurance:MedicarePoli [id number] System [place] Number: Effective Repository [place] Date: [place], [place] [address]Yst: () 08/04/2018 Secondary Dahlia BarkfrancisDOB: [facility] Insurance:Self [id number] System PayPolicy Number: Repository Effective Date: 08/04/2018 [facility] Primary Dahlia BarkfrancisDOB: [facility] BarkDOB: Insurance:MedicarePoli [id number] System cy Number: Effective Repository [place] Date: [place], [place] [address]Hqz: () 08/04/2018 Secondary Dahlia BarkfrancisDOB: [facility] Insurance:MedicarePoli [id number] System cy Number: Effective Repository Date: 08/03/2018 DAHLIA R Primary Insurance:SELF NOT GIVENUNK [place] [id number] [facility]Y [facility] Number: Effective [facility] [place] Date:2018-07-26 Repository [address]Dau: (HP) 08/02/2018 DAHLIA R Primary Insurance:SELF NOT GIVENUNK [place] [id number] PAY [facility] Number: Effective [facility] [place] Date:2018-07-26 Repository [address]Bvf: () 08/01/2018 DAHLIA Hathaway Primary DAHLIA Hathaway [place] [id number] Insurance:MEDICARE A BARKESDOB: [facility] ONLYPolicy Number: [id number], [place] [id number] Repository [address]Hjs: (330) Date:2018-07-26 [phone] () 08/01/2018 Secondary NOT GIVENUNK [place] Insurance:SELF PAY [facility] Number: Effective Repository Date:2018-07-26 07/31/2018 DAHLIA Hathaway Primary DAHLIA Hathaway [place] [id number] Insurance:MEDICARE A BARKESDOB: [facility]Hon[facility] Centericy Number: [id number], [place] [id number] Repository [address]Hme: (330) Date:2018-07-26 [phone] () 07/31/2018 Secondary NOT GIVENUNK [place] Insurance:SELF PAY [facility] Number: Effective Repository Date:2018-07-26 07/30/2018 DAHLIA Hathaway Primary DAHLIA Hathaway [place] [id number] Insurance:MEDICARE A BARKESDOB: [facility] Number: [id number], [place] [id number] Repository [address]Gnj: (330) Date:2018-07-26 [phone] () 07/30/2018 Secondary NOT GIVENUNK [place] Insurance:SELF PAY [facility] Number: Effective Repository Date:2018-07-26 07/29/2018 DAHLIA Hathaway Primary DAHLIA [place] [id number] Insurance:MEDICARE A BARKESDOB: [facility] ONLYUniversity [facility] Health Systemy Number: [id number], [place] [id number] Repository [address]Gkp: (330) Date:2018-07-26 [phone] () 07/29/2018 Secondary NOT GIVENUNK [place] Insurance:SELF PAY [facility] Number: Effective Repository Date:2018-07-26 07/29/2018 Dahlia Villagomez BarkfrancisDOB: [facility] BarkesDOB: Insurance:MedicarePoli [id number] System cy Number: Effective Repository [place] Date: [place], [place] [address]Gjf: (HP) 07/28/2018 DAHLIA R Primary DAHLIA R [place] [id number] Insurance:MEDICARE A BARKESDOB: [facility] ONLYPolicy Number: [id number], [place] [id number] Repository [address]Laf: 330) Date:2018-07-26 [phone] (HP) 07/28/2018 Secondary NOT GIVENUNK [place] Insurance:SELF PAY [facility] Number: Effective Repository Date:2018-07-26 07/27/2018 DAHLIA R Primary Insurance:SELF NOT GIVENUNK [place] [id number] PAY [facility] Number: Effective [place] Date:2018-07-26 Repository [address]Ema: (HP) 07/26/2018 DAHLIA R Primary DAHLIA R [place] [id number] Insurance:MEDICARE A BARKESDOB: [facility] ONLYPolicy Number: [id number], [place] [id number] Repository [address]Wxb: 330) Date:2018-07-26 [phone] (HP) 07/26/2018 Secondary NOT GIVENUNK [place] Insurance:SELF PAY [facility] Number: Effective Repository Date:2018-07-26 07/26/2018 Dahlia Primary Dahlia BarkesD[facility] BarkesDOB: Insurance:MedicarePoli [id number] System cy Number: Effective Repository [place] Date: [place], [place] [address]Jwf: (HP) 07/26/2018 Secondary Dahlia BarkfrancisDOB: [facility] Insurance:Self [id number] System PayPolicy Number: Repository Effective Date: 07/25/2018 DAHLIA R Primary DAHLIA R [place] [id number] Insurance:MEDICARE A BARKESDOB: [facility] ONLYPolicy Number: [id number], [place] [id number] Repository [address]Rab: (330) Date:2018-07-20 [phone] (HP) 07/25/2018 Secondary NOT GIVENUNK [place] Insurance:SELF PAY [facility] Number: Effective Repository Date:2018-07-20 07/24/2018 DAHLIA R Primary DAHLIA R [place] [id number] Insurance:MEDICARE A BARKESDOB: [facility] Number: [id number] [place], [place] [id number] Repository [address]Dug: (330) Date:2018-07-20 [phone] (HP) 07/24/2018 Secondary NOT GIVENUNK [place] Insurance:SELF PAY [facility] Number: Effective Repository Date:2018-07-20 07/23/2018 DAHLIA R Primary Insurance:SELF NOT GIVENUNK [place] [id number] PAY [facility] Number: Effective [place] Date:2018-07-20 Repository [address]Qzb: () 07/22/2018 DAHLIA R Primary Insurance:SELF NOT GIVENUNK [place] [id number] PAY [facility] Number: Effective [place] Date:2018-07-20 Repository [address]Fvp: (HP) 07/21/2018 DAHLIA R Primary Insurance:SELF NOT GIVENUNK [place] [id number] PAY [facility] Number: Effective [place] Date:2018-07-20 Repository [address]Ops: (HP) 07/17/2018 Dahlia [facility] HealthcareD[facility]: Insurance:MedicarePoli [id number] System cy Number: Effective [facility] Date: [place], [place] [address]Utu: (HP) 07/02/2018 [facility] BarkDOB: [facility] BarkDOB: Insurance:MedicarePoli [id number] System cy Number: Effective [facility] Date: [place], [place] [address]Mcg: (HP) 07/02/2018 Secondary Dahlia BarkesDOB: [facility] Insurance:Self [id number] System PayPolicy Number: Repository Effective Date: 07/01/2018 DAHLIA R Primary DAHLIA R [facility] BARKDOB: Insurance:[facility]: Health System APolicy Number: [id number] Repository [place] [id number] [place], [place] Date: [address]Avj: () 06/30/2018 DAHLIA R Primary DAHLIA R Kashif Keita BARKESDOB: Insurance:[facility]ITALB: [facility] INPATIENTPolmercyone [facility] [id number] [place] [address] Number: [place] Repository [place] [id number] [place] [id number]: Date:Plan Name: [id number] () 05/08/2018 DAHLIA R Primary DAHLIA R [facility] [id number] Insurance:MEDICARE BARKESUNK [facility] [place] DISABILITYPolicy Repository [place], [place] Number: [id number]: (623) [id number] [phone] () Date: 12/28/2017 DAHLIA R Primary DAHLIA R Kashif Keita BARKESDOB: Insurance:MEDICARE BARKESDOB: [facility] OUTPATIENTPolicy [id number] [place] [address] Number: [place] Repository [place] [id number] [place] [id number]: Date:Plan Name: [id number] ()
== END ==
LOC: MEDOUTP 13:57
PROVIDERS: Referring Provider Internal Medicine Infectious Disease; Visit Provider Internal Medicine Infectious Disease
DX: K65.1 Peritoneal abscess (principal)
CPT/HCPCS: 96365; J7050; A4216

== ENCOUNTER 2018-07-23 14:18 | Outpatient (CLI) | payer SELFPAY ==
[2018-07-22 14:20] VITALS: BMI 24.0
[2018-07-23 14:25] VITALS: BP 130/78; PULSE 74; RESP 16; TEMP 36.8; O2SAT 99
--- OUTSIDE RECORDS SUMMARY | 2018-09-16 20:39 | XMS RPT_ITS ---
:1970 Author Organization OHIP Support Name Relationship Address Phone NILDA MARINOT Unavailable [address] [place] [address] + [place] [address] BROWN, DINAH Unavailable Unavailable + D Unavailable Unavailable Unavailable BARKES, MARS Unavailable [address] [place] [address] + [place] [address] BROWN, DINAH Unavailable Unavailable + D Unavailable Unavailable Unavailable BARKES, MARS Unavailable [address] [place] [address] + [place] [address] BROWN, DINAH Unavailable Unavailable + D Unavailable Unavailable Unavailable BARKES, MARS Unavailable [address] + [place] [address] BROWN, DINAH Unavailable Unavailable + D Unavailable Unavailable Unavailable BARKES, MARS Unavailable [address] + [place] [address] BROWN, DINAH Unavailable Unavailable + D Unavailable Unavailable Unavailable BARKES, MARS Unavailable [address] [facility] + [place] [address] BROWN, DINAH Unavailable Unavailable + D Unavailable Unavailable Unavailable Barkes, Mars Unavailable Unavailable + Brown, Dinah Unavailable Unavailable + Barkes, Mars Unavailable Unavailable + Brown, Dinah Unavailable Unavailable + BARKES, MARS Unavailable [address] + [place] [address] BROWN, DINAH Unavailable Unavailable + D Unavailable Unavailable Unavailable BARKES, MARS Unavailable [address] [place] [address] ST + [place] [address] BROWN, DINAH Unavailable Unavailable + D Unavailable Unavailable Unavailable BARKES, MARS Unavailable [address] [facility] [address] + [place] [address] BROWN, DINAH Unavailable Unavailable + D Unavailable Unavailable Unavailable BARKES, MARS Unavailable [address] + [place] [address] BROWN, DINAH Unavailable Unavailable + D Unavailable Unavailable Unavailable BARKES, MARS Unavailable [address] [facility] [address] + [place] [address] BROWN, DINAH Unavailable Unavailable + D Unavailable Unavailable Unavailable BARKES, MARS Unavailable [address] + [place] [address] BROWN, DINAH Unavailable Unavailable + D Unavailable Unavailable Unavailable Barkes, Mars Unavailable Unavailable + Brown, Dinah Unavailable Unavailable + BARKES, MARS Unavailable [address] + [place] [address] BROWN, DINAH Unavailable Unavailable + D Unavailable Unavailable Unavailable BARKES, MARS Unavailable [address] + [place] [address] BROWN, DINAH Unavailable Unavailable + D Unavailable Unavailable Unavailable BARKES, MARS Unavailable [address] + [place] [address] BROWN, DINAH Unavailable Unavailable + D Unavailable Unavailable Unavailable Barkes, Mars Unavailable Unavailable + Brown, Dinah Unavailable Unavailable + BARKES, MARS Unavailable [address] + [place] [address] BROWN, DINAH Unavailable Unavailable + D Unavailable Unavailable Unavailable BARKES, MARS Unavailable [address] + [place] [address] BROWN, DINAH Unavailable Unavailable + D Unavailable Unavailable Unavailable BARKES, MARS Unavailable Unavailable + IRENA DINAH Unavailable Unavailable + D Unavailable Unavailable Unavailable BARKES, MARS Unavailable Unavailable + IRENA DINAH Unavailable Unavailable + D Unavailable Unavailable Unavailable BARKES, MARS Unavailable Unavailable + IRENA DINAH Unavailable Unavailable + UE Unavailable Unavailable Unavailable Barkes, Mars Unavailable Unavailable + Irean Dinah Unavailable Unavailable + Barkes, Mars Unavailable Unavailable + Irena Dinah Unavailable Unavailable + BARKES, LANCE Unavailable [address] + [place], [place] [id number] BARKES, MARS Unavailable Unavailable Unavailable NOT GIVEN Unavailable Unavailable Unavailable BARKES, LANCE Unavailable [address] + [place], [place] [id number] BARKES, MARS Unavailable Unavailable Unavailable NOT GIVEN Unavailable Unavailable Unavailable Care Team Providers Name Role Phone KATIA TAMEZ Consulting Unavailable TETYUK, PENELOPE Admitting Unavailable TETYUK, PENELOPE Attending Unavailable NICK MONTENEGRO Consulting Unavailable Dena Moore Attending Unavailable PROVIDER, UNKNOWN Referring Unavailable MICHELINE LANGSTON Primary Care Unavailable PROVIDER, UNKNOWN Referring Unavailable No, PCP Primary Care Unavailable Sallie Aggarwal Attending Unavailable PROVIDER, UNKNOWN Referring Unavailable MICHELINE LANGSTON Primary Care Unavailable Jonh Esparza Attending Unavailable Jonh Esparza Attending Unavailable PROVIDER, UNKNOWN Referring Unavailable IVIS, MICHELINE Primary Care Unavailable Jonh Esparza Attending Unavailable PROVIDER, UNKNOWN Referring Unavailable IVIS, MICHELINE Primary Care Unavailable PROVIDER, UNKNOWN Referring Unavailable IVIS, MICHELINE Primary Care Unavailable Daniella Esparzake Attending Unavailable Mandapat, Daya Referring Unavailable JOSE ALBERTO [...] Care Physicia, No Primary Care Unavailable Mandapat, Dyaa Attending Unavailable Mandapat, Daya Referring Unavailable Primay [...] MD Consulting Unavailable PROVIDER, UNKNOWN Consulting Unavailable Jan MCGOWAN Consulting Unavailable PENELOPE PERSAUD Admitting Unavailable PENELOPE PERSAUD Attending Unavailable NICK MONTENEGRO Consulting Unavailable PROBLEMS PROBLEMS DATE TYPE CONDITION / CODE ATTENDING STATUS SOURCE 07/26/2018 Admitting Candidiasis of vulva Vilma, Active [employer] Diagnosis and vagina / [facility] B37.3(ICD-10) Repository 07/26/2018 Admitting Encntr for f/u exam [place], Active [facility] Diagnosis aft trtmt for cond [facility] oth than malig Repository neoplm / Z09(ICD-10) 07/26/2018 Admitting Crohn's disease of Vilma, Active [employer] Diagnosis both small and lg [facility] int w oth Repository complication / K50.818(ICD-10) 07/02/2018 Admitting Peritoneal abscess / [employer] Diagnosis K65.1(ICD-10) [facility] Repository 07/02/2018 Admitting Crohn's disease, [facility] [employer] Diagnosis unspecified, with [facility] abscess / Repository K50.914(ICD-10) 07/02/2018 Admitting Unspecified severe [employer] Diagnosis protein-calorie [facility] malnutrition / Repository E43(ICD-10) 07/02/2018 Admitting Complex regional [employer]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 I, [facility] unspecified / Repository G90.50(ICD-10) 07/02/2018 Admitting Urinary tract [employer] Diagnosis infection, site not [facility] specified / Repository N39.0(ICD-10) 07/02/2018 Admitting Personal history of 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 Repository / I25.10(ICD-10) 07/02/2018 Admitting Body mass index Oscar, [employer] Diagnosis (BMI) 24.0-24.9, [facility] adult / Repository Z68.24(ICD-10) 07/02/2018 Admitting Abnormal weight loss Oscar, [employer] Diagnosis / R63.4(ICD-10) [facility] Repository 07/02/2018 Admitting Elevated white blood Oscar, [employer] Diagnosis cell count, [facility] unspecified / Repository D72.829(ICD-10) 07/02/2018 Admitting Hypokalemia / Oscar, [employer] Diagnosis E87.6(ICD-10) [facility] Repository 07/02/2018 Admitting Hypomagnesemia / [facility] [employer] Diagnosis E83.42(ICD-10) [facility] Repository 07/02/2018 Admitting Anemia, unspecified [facility] [employer] Diagnosis / D64.9(ICD-10) [facility] Repository 07/01/2018 Active Unknown / TETYUK, Active [employer] UNK(Unknown) [facility] Other [place] Repository 05/08/2018 Admitting Unknown / NA Active [facility] diagnosis UNK(Unknown) Hospital Repository 12/28/2017 Admitting Vomiting, OMLEY, 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 unspecified / DO [facility] R1110(ICD-10) Hospital Repository 12/28/2017 Principle Noninfective OMLEY, 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 gastroenteritis and [facility] colitis, unspecified Hospital / K529(ICD-10) Repository 12/28/2017 Secondary Crohn's disease, OMLEY, 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 unspecified, without [facility] complications / Hospital K5090(ICD-10) Repository 12/28/2017 Secondary Atherosclerotic OMLEY, 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 CONTRAST 1:01 PM SYSTEM REPOSITORY Patient Name: DAHLIA MARINO CT Exam Date/Time 08/04/2018 12:09:[address] Abdomen/Pelvis w/ IV Contrast (IV Onl Ordering Physician MD MEDRANO DIANA Accession Number [id number] CPT4 Codes 74763 (CT Abdomen/Pelvis w/ IV Contrast (IV Onl), Q9967 (CT ISOVUE 370MG/[id number]) Reason For Exam RLQ phlegmon vs abscess [...] METABOLIC PANEL Collected: 08/04/2018 Status: F Source: [facility] 9:09 AM SYSTEM REPOSITORY TYPE CODE TESTS [...] Calcium 8.8 Performed By: #### BMP3 #### [facility] [address] [place] [phone] CBC W/DIFF, AUTOMATED Collected: 08/03/2018 Status: F Source: [place] 2:13 PM [facility] REPOSITORY TYPE CODE TESTS RESULT [...] Lymph 1.92 Performed By: #### L100.0100 #### [facility] [address] [place], [address] COMPREHENSIVE METABOLIC Collected: 08/03/2018 Status: F Source: [facility] 2:13 PM [facility] REPOSITORY TYPE CODE TESTS RESULT [...] 9 GAP Performed By: #### L500.4050 #### [facility] [address] [place], [place], [address] CBC W/DIFF, AUTOMATED Collected: 07/27/2018 Status: F Source: [place] 2:06 PM [facility] REPOSITORY TYPE CODE TESTS RESULT [...] Lymph 1.89 Performed By: #### L100.0100 #### [facility] [address] [place], [place], [address] COMPREHENSIVE METABOLIC Collected: 07/27/2018 Status: F Source: [facility] 2:06 PM [facility] REPOSITORY TYPE CODE TESTS RESULT [...] Normal 7 Performed By: #### L500.4050 #### [facility] [address] [place], [address] CBC W/DIFF, AUTOMATED Collected: 07/21/2018 Status: F Source: [place] 2:35 PM [facility] REPOSITORY TYPE CODE TESTS RESULT [...] Lymph 1.50 Performed By: #### L100.0100 #### [facility] [address] [place], [place], [address] COMPREHENSIVE METABOLIC Collected: 07/21/2018 Status: F Source: [facility] 2:35 PM [facility] REPOSITORY TYPE CODE TESTS RESULT [...] GAP 4 Performed By: #### L500.4050 #### [facility] [address] [facility]. [place], [place], [address] CR CHEST PORTABLE Observed: 07/20/2018 Status: F Source: [facility] 6:44 PM SYSTEM REPOSITORY Patient Name: DAHLIA MARINO Diagnostic Radiology Exam Date/Time 07/20/2018 16:55:27 EST Exam CR Chest Portable Ordering Physician DO PINON KATHRYN C Accession Number [id number] CPT4 Codes 75372 () Reason For Exam Line placement Report [...] DISCHARGE SUMMARY Observed: 07/20/2018 Status: F Source: [facility] 1:18 PM SYSTEM REPOSITORY Attestation signed by [...] (bowel resections x8), hypothyroidism, FM. Presented to [facility] ED on 07/17/18 with worsening abdominal pain. Patient was admitted to [facility] ED in 07/10, discharged 07/04/18. During [...] follow up with her GI doctor in [place], urged her to set up a follow up appointment soon after discharge. ID placed infusion orders for [facility] in [place] with an appointment to start tomorrow. PROCEDURES: PICC placement CONSULTANTS: Interventional Radiology General Surgery Gastrointestinal Infectious Disease DISCHARGE MEDICATIONS: Dahlia Marino Home Medication Instructions MARLYN:[id number] Printed on:07/20/18 6823 Medication Information calcium-vitamin D (OSCAL) 250-125 MG-UNIT [...] Complexity: follow up within 7-14 calendar days (60822) [x] Severe Complexity: follow up within 7 calendar days (16354) FOLLOW UP TESTING, PENDING RESULTS OR REFERRALS AT TRANSITIONAL CARE VISIT: CT of abdomen after 2-3 weeks of abx [x] Yes [] No RECOMMENDED NEXT STEPS: Please follow up with Dr. Langston at the [facility] at 10am on 07/26/2018. Please follow up with your GI doctor in [place]. Please follow up with Dr. Micheline Barnard of general surgery at [phone] as soon as possible for a follow up appointment in two weeks . DISPOSITION: Home Follow up with Dr. Langston at the [facility] at 10am on [...] frame. TIFERON Collected: 07/20/2018 Status: F Source: [facility] 11:02 AM SYSTEM REPOSITORY TYPE CODE TESTS RESULT OUT OF REFERENCE UNITS RANGE LAB QTF Negative NA Quantiferon Negative Performed By: #### QTF #### [facility] [address] [id number] HEMOGRAM Collected: 07/20/2018 Status: F Source: [facility] 4:25 AM SYSTEM REPOSITORY TYPE CODE TESTS [...] By: #### HEMOG, BMP3M, MG3, PHOS3 #### [facility] [address] [place] [phone] BASIC METABOLIC PANEL Collected: 07/20/2018 Status: F Source: [facility] 4:25 AM SYSTEM REPOSITORY TYPE CODE TESTS [...] By: #### HEMOG, BMP3M, MG3, PHOS3 #### [facility] [address] [place] [address] MAGNESIUM Collected: 07/20/2018 Status: F Source: [facility] 4:25 AM SYSTEM REPOSITORY TYPE CODE TESTS RESULT OUT OF REFERENCE UNITS RANGE LAB MG3 1.6-2.3 mg/dL Low Magnesium 1.5 Performed By: #### HEMOG, BMP3M, MG3, PHOS3 #### [employer] [address] PHOSPHORUS Collected: 07/20/2018 Status: F Source: [facility] 4:25 AM SYSTEM REPOSITORY TYPE CODE TESTS RESULT OUT OF RANGE REFERENCE UNITS LAB PHOS3 2.5-4.5 mg/dL Normal Phosphorus 4.3 Performed By: #### HEMOG, BMP3M, MG3, PHOS3 #### [facility] [address] [place] [address] Observed: 07/19/2018 Status: F Source: [facility] CLOSTRIDIUM DIFFICILE 10:53 PM SYSTEM REPOSITORY PCR [...] be submitted. Performed By: #### CDPCR #### [employer] [address] HEMOGRAM Collected: 07/19/2018 Status: F Source: [facility]! 5:29 AM SYSTEM REPOSITORY TYPE CODE TESTS [...] By: #### HEMOG, BMP3M, MG3, PHOS3 #### [facility] [address] [place] [phone] BASIC METABOLIC PANEL Collected: 07/19/2018 Status: F Source: [facility] 5:29 AM SYSTEM REPOSITORY TYPE CODE TESTS [...] By: #### HEMOG, BMP3M, MG3, PHOS3 #### [facility] [address] [place] [phone] MAGNESIUM Collected: 07/19/2018 Status: F Source: [facility]! 5:29 AM SYSTEM REPOSITORY TYPE CODE TESTS RESULT OUT OF RANGE REFERENCE UNITS LAB MG3 1.6-2.3 mg/dL Normal Magnesium 1.6 Performed By: #### HEMOG, BMP3M, MG3, PHOS3 #### [facility] [address] [address] PHOSPHORUS Collected: 07/19/2018 Status: F Source: [facility]! 5:29 AM SYSTEM REPOSITORY TYPE CODE TESTS RESULT OUT OF RANGE REFERENCE UNITS LAB PHOS3 2.5-4.5 mg/dL Normal Phosphorus 3.4 Performed By: #### HEMOG, BMP3M, MG3, PHOS3 #### [facility] [employer] [address] [address] HEMOGRAM Collected: 07/18/2018 Status: F Source: [facility]! 5:02 AM SYSTEM REPOSITORY TYPE CODE TESTS [...] By: #### HEMOG, BMP3M, MG3, PHOS3 #### [address] [address] BASIC METABOLIC PANEL Collected: 07/18/2018 Status: F Source: [facility] 5:02 AM SYSTEM REPOSITORY TYPE CODE TESTS [...] By: #### HEMOG, BMP3M, MG3, PHOS3 #### [facility] [address] [place] [phone] MAGNESIUM Collected: 07/18/2018 Status: F Source: [facility] 5:02 AM SYSTEM REPOSITORY TYPE CODE TESTS RESULT OUT OF RANGE REFERENCE UNITS LAB MG3 1.6-2.3 mg/dL Normal Magnesium 1.6 Performed By: #### HEMOG, BMP3M, MG3, PHOS3 #### [facility] [address] [place] [phone] PHOSPHORUS Collected: 07/18/2018 Status: F Source: [facility] 5:02 AM SYSTEM REPOSITORY TYPE CODE TESTS RESULT OUT OF RANGE REFERENCE UNITS LAB PHOS3 2.5-4.5 mg/dL Normal Phosphorus 3.5 Performed By: #### HEMOG, BMP3M, MG3, PHOS3 #### [facility] [address] [place] [phone] BASIC METABOLIC PANEL Collected: 07/17/2018 Status: F Source: [facility] 2:00 PM SYSTEM REPOSITORY TYPE CODE TESTS [...] Calcium 7.5 Performed By: #### BMP3 #### [facility] [address], [place] LACTIC ACID Collected: 07/17/2018 Status: F Source: [facility] 11:25 AM SYSTEM REPOSITORY TYPE CODE TESTS RESULT OUT OF REFERENCE UNITS RANGE LAB LACT3 0.7-2.0 mmol/L Low Lactic Acid < 0.5 Performed By: #### LACT3 #### [facility] [place], [place] Observed: 07/17/2018 Status: F Source: [facility]! CULTURE URINE 8:28 AM SYSTEM REPOSITORY Order Comment: Specimen Source Comment:Urine, clean catch CULTURE URINE --> Status: F Normal urogenital elham present. Performed By: #### C/UR #### [facility] [address] [place] [address] CT ABDOMEN/PELVIS W/ Observed: 07/17/2018 Status: F Source: [facility] CONTRAST 5:09 AM SYSTEM REPOSITORY Patient Name: DAHLIA MARINO CT Exam Date/Time 07/17/2018 05:32:[address] Abdomen/Pelvis w/ IV Contrast (IV Onl Ordering Physician MD JAMIR, IRENE Gray Accession Number [id number] CPT4 Codes 63257 (CT Abdomen/Pelvis w/ IV Contrast (IV Onl), Q9967 (CT ISOVUE 370MG/[id number]) Reason For Exam recent abscess due to [...] 07/17/2018 5:09 Observed: 07/17/2018 Status: F Source: [facility] CULTURE BLOOD 4:57 AM SYSTEM REPOSITORY Order Comment: Specimen Source Comment:Blood CULTURE BLOOD --> Status: F No growth at 5 days. Performed By: #### C/BLD #### [facility] [address] [place] [phone] Observed: 07/17/2018 Status: F Source: [facility] CULTURE BLOOD (TWO) 4:01 AM SYSTEM REPOSITORY Order Comment: Specimen Source Comment:Blood CULTURE BLOOD (Two) --> Status: F No growth at 5 days. Performed By: #### C/BLT #### [facility] [address] [place] [phone] HEMOGRAM W/ AUTODIFF Collected: 07/17/2018 Status: F Source: [facility] 4:00 AM SYSTEM REPOSITORY TYPE CODE TESTS [...] LIPA4, LFT3, BMP3, CRP2, ESR, PCAL #### [facility] [address] [place] [phone] LACTIC ACID Collected: 07/17/2018 Status: F Source: [facility]! 4:00 AM SYSTEM REPOSITORY TYPE CODE TESTS RESULT OUT OF RANGE REFERENCE UNITS LAB LACT3 0.7-2.0 mmol/L Normal Lactic Acid 1.2 Performed By: #### HEMDF, LACT3, LIPA4, LFT3, BMP3, CRP2, ESR, PCAL #### [facility] [address] [place] [phone] LIPASE Collected: 07/17/2018 Status: F Source: [facility]! 4:00 AM SYSTEM REPOSITORY TYPE CODE TESTS RESULT OUT OF RANGE REFERENCE UNITS LAB LIPA4 23-300 U/L Normal Lipase 38 Performed By: #### HEMDF, LACT3, LIPA4, LFT3, BMP3, CRP2, ESR, PCAL #### [facility] [address] [place] [phone] HEPATIC FUNCTION Collected: 07/17/2018 Status: F Source: [facility] 4:00 AM SYSTEM REPOSITORY TYPE CODE TESTS [...] LIPA4, LFT3, BMP3, CRP2, ESR, PCAL #### [facility] [address] [place] [phone] BASIC METABOLIC PANEL Collected: 07/17/2018 Status: F Source: [facility]! 4:00 AM SYSTEM REPOSITORY TYPE CODE TESTS [...] LIPA4, LFT3, BMP3, CRP2, ESR, PCAL #### [facility] [address] [place] [address] C-REACTIVE PROTEIN Collected: 07/17/2018 Status: F Source: [facility]! 4:00 AM SYSTEM REPOSITORY TYPE CODE TESTS RESULT OUT OF REFERENCE UNITS RANGE LAB 2CRP 0.0-6.0 mg/L High C-Reactive 11.6 Protein Result Comment: . Performed By: #### HEMDF, LACT3, LIPA4, LFT3, BMP3, CRP2, ESR, PCAL #### [facility] [address] [place] [address] SED RATE Collected: 07/17/2018 Status: F Source: [facility]! 4:00 AM SYSTEM REPOSITORY TYPE CODE TESTS RESULT OUT OF RANGE REFERENCE UNITS LAB ESR 0-20 mm/h High Sed Rate 27 Performed By: #### HEMDF, LACT3, LIPA4, LFT3, BMP3, CRP2, ESR, PCAL #### [facility] [address] [place] [address] PROCALCITONIN Collected: 07/17/2018 Status: F Source: [facility]! 4:00 AM SYSTEM REPOSITORY TYPE CODE TESTS RESULT OUT OF REFERENCE UNITS RANGE LAB PRO <0.10 ng/mL Procalcitonin Normal < 0.10 LAB INT3 NA Interpretation See Below Result Comment: PCT <0.50 = Low risk of severe sepsis and/or septic shock. PCT >2.00 = High risk of severe sepsis and/or septic shock. Performed By: #### HEMDF, LACT3, LIPA4, LFT3, BMP3, CRP2, ESR, PCAL #### [facility] [address] [place] [address] ED PROVIDER NOTE Observed: 07/17/2018 Status: F Source: [facility]! 2:30 AM SYSTEM REPOSITORY [facility] EMERGENCY DEPT eMERGENCY dEPARTMENT eNCOUnter Pt Name: Dahlia Marino Birthdate 1970 Date of evaluation: 07/17/2018 Provider: Irene Marlow MD Chief Complaint: No chief complaint on file. WRANGELL: Dahlia Marino is a 48 y.o. female [...] antibiotics in the hospital. She is from [place] but was referred here because the hospital [...] 1 mg Intravenous Q15 Min PRN Irene aMrlow MD ? ondansetron (ZOFRAN) injection 4 mg [...] by myself in the absence of a pediatric speech therapist) none Chart review shows recent radiographs: Ct Abdomen Pelvis W Contrast Result Date: 07/02/2018 Patient Name: DAHLIA MARINO ---CT--- Exam Date/Time 07/02/2018 07:47:[address] Abdomen/Pelvis w/ IV Contrast (IV Onl Ordering Physician MD IVIS, MPH, MICHELINE Accession Number [id number] CPT4 Codes 65570 (CT Abdomen/Pelvis w/ IV Contrast (IV Onl), Q9967 (CT ISOVUE 370MG/[id number]) Reason For Exam Crohns flare, known abscess [...] PROVIDER NOTE Observed: 07/17/2018 Status: F Source: [facility] 2:30 AM SYSTEM REPOSITORY Emergency Department Encounter Location: [facility] EMERGENCY DEPT Patient: Dahlia Marino : [...] # 1.4 1.0 - 4.3 10*3/uL Absolute Alexander # 1.2 (H) 0.0 - 0.8 10*3/uL [...] eGFR >60.0 >60 mL/min EGFR IF NonAfrican Cymro >60.0 >60 mL/min Calcium 8.1 (L) 8.4 [...] Physician MD JAMIR, IRENE Gray Accession Number [id number] CPT4 Codes 79769 (CT Abdomen/Pelvis w/ IV Contrast (IV Onl), Q9967 (CT ISOVUE 370MG/[id number]) Reason For Exam recent abscess due to [...] dictations but occasionally words are mis-transcribed.) Bon Mercedse MD [employer] Bon Mercedes MD 07/17/18 0551 DISCHARGE SUMMARY Observed: 07/04/2018 Status: F Source: [facility]! 11:29 AM SYSTEM REPOSITORY Attestation signed by [...] x8, on gregory), hypothyroidism, fibromyalgia presented to [facility] w/ progressive 6 week hx of abdominal pain. She was first seen at [facility] in [place], [place] 6wks prior to admission for abdominal [...] in the urine. CT abdomen done at [place] (07/01/18) which showed a complex inflammatory collection/mass in anterior RLQ abscess. Patient was then transferred to [facility] the same day for further management and a second opinion. Patient and then requested transfer to [facility] as they have had family treated [...] DISCHARGE MEDICATIONS: Dahlia Marino Home Medication Instructions MARLYN:[id number] Printed on:07/05/18 1006 Medication Information adalimumab (HUMIRA) [...] Complexity: follow up within 7-14 calendar days (21647) [] Severe Complexity: follow up within 7 calendar days (60541) FOLLOW UP TESTING, PENDING RESULTS OR REFERRALS [...] W/ AUTODIFF Collected: 07/04/2018 Status: F Source: [facility] 5:08 AM SYSTEM REPOSITORY TYPE CODE TESTS [...] #### HEMDF, BMP3M, MG3, PHOS3, LFT3 #### [facility] [address] [place] [address] BASIC METABOLIC PANEL Collected: 07/04/2018 Status: F Source: [facility]! 5:08 AM SYSTEM REPOSITORY TYPE CODE TESTS [...] #### HEMDF, BMP3M, MG3, PHOS3, LFT3 #### [facility] [address] [place] [phone] MAGNESIUM Collected: 07/04/2018 Status: F Source: Loot! 5:08 AM SYSTEM REPOSITORY TYPE CODE TESTS RESULT OUT OF RANGE REFERENCE UNITS LAB MG3 1.6-2.3 mg/dL Normal Magnesium 1.8 Performed By: #### HEMDF, BMP3M, MG3, PHOS3, LFT3 #### [facility] [address] [place] [phone] PHOSPHORUS Collected: 07/04/2018 Status: F Source: Loot! 5:08 AM SYSTEM REPOSITORY TYPE CODE TESTS RESULT OUT OF RANGE REFERENCE UNITS LAB PHOS3 2.5-4.5 mg/dL Normal Phosphorus 3.8 Performed By: #### HEMDF, BMP3M, MG3, PHOS3, LFT3 #### [facility] [address] [place] [phone] HEPATIC FUNCTION Collected: 07/04/2018 Status: F Source: Loot! 5:08 AM SYSTEM REPOSITORY TYPE CODE TESTS [...] #### HEMDF, BMP3M, MG3, PHOS3, LFT3 #### [employer] [address] [place] [phone] HEMOGRAM W/ AUTODIFF Collected: 07/03/2018 Status: F Source: Loot! 2:31 AM SYSTEM REPOSITORY TYPE CODE TESTS [...] By: #### HEMDF, MG3, PHOS3, BMP3M #### [facility] [address] [place] [address] MAGNESIUM Collected: 07/03/2018 Status: F Source: Loot! 2:31 AM SYSTEM REPOSITORY TYPE CODE TESTS RESULT OUT OF RANGE REFERENCE UNITS LAB MG3 1.6-2.3 mg/dL Normal Magnesium 2.1 Performed By: #### HEMDF, MG3, PHOS3, BMP3M #### [facility] [place], [place] PHOSPHORUS Collected: 07/03/2018 Status: F Source: Loot! 2:31 AM SYSTEM REPOSITORY TYPE CODE TESTS RESULT OUT OF RANGE REFERENCE UNITS LAB PHOS3 2.5-4.5 mg/dL Normal Phosphorus 3.8 Performed By: #### HEMDF, MG3, PHOS3, BMP3M #### [facility] [address] [place] [address] BASIC METABOLIC PANEL Collected: 07/03/2018 Status: F Source: Loot! 2:31 AM SYSTEM REPOSITORY TYPE CODE TESTS [...] By: #### HEMDF, MG3, PHOS3, BMP3M #### [facility] [address] [place] [address] URINALYSIS,MACRO Collected: 07/03/2018 Status: F Source: Loot! 2:23 AM SYSTEM REPOSITORY TYPE CODE TESTS RESULT OUT OF REFERENCE UNITS RANGE LAB APPUR Clear NA Appearance Cloudy LAB COLUR Lt. Yellow NA Color Yellow LAB USG 1.005-1.030 NA Specific Normal Austin,Urine 1.015 LAB UPH 5.0-8.0 NA pH,Urine Normal [...] 250 Performed By: #### UAMAC, UAMIC #### [facility] [address] [place] [address] URINALYSIS,MICROSCOPIC Collected: Status: F Source: [facility] 07/03/2018 2:23 AM HEALTH SYSTEM REPOSITORY TYPE CODE TESTS RESULT OUT OF REFERENCE UNITS RANGE LAB WBCU 0-5 /[HPF] 26 WBC,Urine - 50 LAB RBCU 0-2 /[HPF] 11 RBC,Urine - 25 LAB EPIU 3-5 /[HPF] 0 Epithelial Cells - 2 LAB LILLIAM Negative NA Bacteria Many (51-100) LAB AMPH Negative NA Amorphous Moderate Phosphates (6-50) Performed By: #### UAMAC, UAMIC #### [facility] [place] [address] Observed: 07/03/2018 Status: F Source: Loot! CULTURE URINE 2:23 AM SYSTEM REPOSITORY Order Comment: Specimen Source Comment:Urine, clean catch CULTURE URINE --> Status: F No growth (<1,000 CFU/ml). Performed By: #### C/UR #### [facility] [address] [address] [address] ABDOMEN/PELVIS W/ Observed: 07/02/2018 Status: F Source: Loot! CONTRAST 8:06 AM SYSTEM REPOSITORY Patient Name: DAHLIA MARINO CT Exam Date/Time 07/02/2018 07:47:[address] Abdomen/Pelvis w/ IV Contrast (IV Onl Ordering Physician MD IVIS, MPH, MICHELINE Accession Number [id number] CPT4 Codes 40319 (CT Abdomen/Pelvis w/ IV Contrast (IV Onl), Q9967 (CT ISOVUE 370MG/[id number]) Reason For Exam Crohns flare, known abscess [...] 8:06 URINALYSIS,MACRO Collected: 07/02/2018 Status: F Source: Loot! 1:59 AM SYSTEM REPOSITORY TYPE CODE TESTS RESULT OUT OF REFERENCE UNITS RANGE LAB APPUR Clear NA Appearance Clear LAB COLUR Lt. Yellow NA Color P. Yellow LAB USG 1.005-1.030 NA Specific Normal Austin,Urine 1.010 LAB UPH 5.0-8.0 NA pH,Urine Normal [...] 25 Performed By: #### UAMAC, UAMIC #### [facility] [employer] [address] [address] URINALYSIS,MICROSCOPIC Collected: Status: F Source: [facility] 07/02/2018 1:59 AM HEALTH SYSTEM REPOSITORY TYPE CODE TESTS RESULT OUT OF REFERENCE UNITS RANGE LAB WBCU 0-5 /[HPF] 11 WBC,Urine - 25 LAB RBCU 0-2 /[HPF] 3 RBC,Urine - 5 LAB EPIU 3-5 /[HPF] 3 Epithelial Cells - 5 LAB LILLIAM Negative NA Bacteria Moderate (6-50) Performed By: #### UAMAC, UAMIC #### [facility] [address] [place] [address] Observed: 07/02/2018 Status: F Source: MyRoll BLOOD 1:45 AM SYSTEM REPOSITORY Order Comment: Specimen Source Comment:Blood CULTURE BLOOD --> Status: F No growth at 5 days. Performed By: #### C/BLD #### [facility] [address] [place] [address] Observed: 07/02/2018 Status: F Source: [facility]Roll BLOOD (TWO) 1:45 AM SYSTEM REPOSITORY Order Comment: Specimen Source Comment:Blood CULTURE BLOOD (Two) --> Status: F No growth at 5 days. Performed By: #### C/BLT #### [facility] [address] [place] [address] HEMOGRAM W/ AUTODIFF Collected: 07/02/2018 Status: F Source: Loot! 1:37 AM SYSTEM REPOSITORY TYPE CODE TESTS [...] LACT3, TSH5, CMP3, MG3, FT4M, TROPN #### [facility] [address] [place] [phone] PROTHROMBIN TIME Collected: 07/02/2018 Status: F Source: Loot! 1:37 AM SYSTEM REPOSITORY TYPE CODE TESTS [...] LACT3, TSH5, CMP3, MG3, FT4M, TROPN #### [facility] [address] [place] [phone] LACTIC ACID Collected: 07/02/2018 Status: F Source: Loot! 1:37 AM SYSTEM REPOSITORY TYPE CODE TESTS RESULT OUT OF REFERENCE UNITS RANGE LAB LACT3 0.7-2.0 mmol/L Low Lactic Acid 0.6 Performed By: #### HEMDF, PT, LACT3, TSH5, CMP3, MG3, FT4M, TROPN #### [facility] [address] [place] [phone] THYROID STIM. Collected: 07/02/2018 Status: F Source: Loot! HORMONE 1:37 AM SYSTEM REPOSITORY TYPE CODE TESTS RESULT OUT OF REFERENCE UNITS RANGE LAB TSH5 0.465-4.680 u[IU]/mL Low Thyroid Stim. 0.175 Hormone Performed By: #### HEMDF, PT, LACT3, TSH5, CMP3, MG3, FT4M, TROPN #### [facility] [address] [place] [phone] COMP METABOLIC PANEL Collected: 07/02/2018 Status: F Source: Loot! 1:37 AM SYSTEM REPOSITORY TYPE CODE TESTS [...] LACT3, TSH5, CMP3, MG3, FT4M, TROPN #### [facility] [address] [place] [phone] MAGNESIUM Collected: 07/02/2018 Status: F Source: [facility] 1:37 AM SYSTEM REPOSITORY TYPE CODE TESTS RESULT OUT OF REFERENCE UNITS RANGE LAB MG3 1.6-2.3 mg/dL Low Magnesium 1.5 Performed By: #### HEMDF, PT, LACT3, TSH5, CMP3, MG3, FT4M, TROPN #### [facility] [address] [place] [address] FREE T4 Collected: 07/02/2018 Status: F Source: Loot! 1:37 AM SYSTEM REPOSITORY TYPE CODE TESTS RESULT OUT OF RANGE REFERENCE UNITS LAB FT4M 0.78-2.19 ng/dL Normal Free T4 1.87 Performed By: #### HEMDF, PT, LACT3, TSH5, CMP3, MG3, FT4M, TROPN #### [facility] [address] [place] [address] TROPONIN I Collected: 07/02/2018 Status: F Source: Loot! 1:37 AM SYSTEM REPOSITORY TYPE CODE TESTS RESULT OUT OF RANGE REFERENCE UNITS LAB TROP4 0.000-0.034 ng/mL Normal Troponin I < 0.012 Result Comment: 0.046 - 0.400 = Indeterminate > 0.400 = Consider Myocardial Injury Performed By: #### HEMDF, PT, LACT3, TSH5, CMP3, MG3, FT4M, TROPN #### [facility] [address] [place], [place] [id number] ED PROVIDER NOTE Observed: 07/02/2018 Status: F Source: Loot! 12:02 AM SYSTEM REPOSITORY Emergency Department Encounter [...] the past few weeks, was seen at [facility]. yesterday, CT there showed an intra-abdominal [...] otherwise acutely negative except as in the [place]ANGE[place]. Past History Past Medical History: Diagnosis Date [...] # 1.6 1.0 - 4.3 10*3/uL Absolute Alexander # 1.4 (H) 0.0 - 0.8 10*3/uL [...] eGFR >60.0 >60 mL/min EGFR IF NonAfrican Cymro >60.0 >60 mL/min Calcium 8.0 (L) 8.4 [...] UA P. Yellow Lt. Yellow NA Specific Austin, Urine 1.010 1.005 - 1.030 NA pH, [...] me Rhythm: normal sinus Rate: normal, 83 [place]: normal Ectopy: none Conduction: normal ST Segments: [...] 12:02 AM SYSTEM REPOSITORY Emergency Department Encounter [facility] EMERGENCY DEPT Patient: Dahlia Marino : 1970 Date of Evaluation: 07/02/2018 ED Provider: BLAIR HOLDEN CNP As the [id number], I performed a medical screening history and [...] per patient and family. They were at [facility] earlier this morning. Per report from family CT was done with oral contrast finding possible abscess below her liver. He was transferred [facility] without their knowledge. Family states they thought she was coming here. He was at [facility] day and that concerns about her [...] NURSING PROG Observed: 07/01/2018 Status: COMPLETED Source: WING 11:34 PM [facility] REPOSITORY HNO ID: [id number] Author: Meme (Rn) EZEKIEL Ramsay Service: Emergency [...] this. I personally spoke with Winter Paez FAST BRIM POUNCER, requested further order to check labs including [...] bleeding. PROGRESS Observed: 07/01/2018 Status: COMPLETED Source: WING 11:15 PM [facility] HNO ID: [id number] Author: Jeannine (Clayton) BLAIR Womack.CLAYTON Service: (none) Author Type: Nurse Practitioner Type: Progress Notes Filed: 07/01/2018 11:51 PM Note Text: CTBS for patient requesting to leave AMA. Nursing telephone information supervisor on floor speaking with patient and family. [...] of testing. Family is taking patient to [facility] ED at this time. Pt is alert and oriented x 3, capable of making decisions. AMA paperwork filled out and signed at bedside. Jeannine Womack CNP NURSING PROG Observed: 07/01/2018 Status: COMPLETED Source: WING 9:25 PM [facility] REPOSITORY HNO ID: [id number] Author: Ester (Rn) EZEKIEL Kamara Service: (none) [...] AND PELVIS Observed: 07/01/2018 Status: F Source: [facility] WITH CONTRAST 8:57 PM HEALTH SYSTEM REPOSITORY Performed at [facility] APPROVED BY: Zia Maurer MD Exam Title: [...] advised. CONSULT Observed: 07/01/2018 Status: COMPLETED Source: WING 4:02 PM [facility] REPOSITORY [facility] ID: [id number] Author: Misty Mcdonald Service: General Surgery Author [...] returned and got worse. Patient presented to [place] ED where CT Abd/Pelvis showed a possible [...] CONSULT PROG Observed: 07/01/2018 Status: COMPLETED Source: WING 3:57 PM [facility] OTHER CAMPUS REPOSITORY O ID: [id number] Author: Kamran Colon Service: Gastroenterology Author Type: [...] ago per patient) who presented to the [place] ED for abdominal pain. She stated she [...] she called EMS who transferred her to [facility]. In the ED her abdominal CT revealed possible abscess vs neoplasms so she was transferred to [facility]. She denied melena, hematochezia, hematemesis, and [...] about 3-4 years ago (no record in [facility]). FUNCTIONAL STATUS: Independent PAST MEDICAL HISTORY Diagnosis [...] patient 3-4 years ago (no record in [facility]) Assessment AND Plan: Repeat Abdominal CT with [...] patient 3-4 years ago (no record in [facility]) Assessment AND Plan: Need records from Director Of Clinical Services Dr. Loomis in [place]. SIGNATURE: Kamran Colon APRN.CNP PATIENT NAME: Dahlia Marino DATE: July 01, 2018 TIME: 3:57 PM PAGER: NUTRITION Observed: 07/01/2018 Status: COMPLETED Source: WING 3:47 PM CLINIC OTHER CAMPUS REPOSITORY HNO ID: [id number] Author: Argentina Zuluaga RD (Ld) Service: Nutrition [...] gm protein per serving and vanilla Boost [facility] QD, to provide 530 kcal and [...] nutritional status Reason for Assessment: Consult from [facility] for patient with 28 lbs weight loss in 4 weeks. Per HPI: This is a 47 year old female with PMH of crohns, hypothyroid, wallace, ape, liver sx d/t infection who presents to the [facility] from [facility]. Pt called EMS and had them [...] ENSURE CLEAR MIXED PEREZ Supplement 2: BOOST [facility] VANILLA Lines and Drains: Peripheral 07/01/18 [...] Admitted) 07/01/18 0700 - 07/02/18 0659 Shift [id number] [phone] 24 Hour Total 4995-0745 1434-7053 9546-8159 24 Hour Total I N T A [...] July 01, 2018 TIME: 4:25 PM PAGER: [phone] CEA Collected: 07/01/2018 Status: F Source: [facility] 1:55 PM HEALTH SYSTEM REPOSITORY TYPE CODE TESTS RESULT OUT OF RANGE REFERENCE UNITS LAB CEA(LOINC) 0.0-3.0 ng/mL CEA 2.5 Result Comment: The reference range shown is for adult non-smokers. The range for smokers is 0-5.0 Testing performed by Chemiluminescence LOCI. Performed By: #### CEA #### [place] [address] MAGNESIUM BLOOD Collected: 07/01/2018 Status: F Source: [facility] 1:55 PM HEALTH SYSTEM REPOSITORY TYPE CODE TESTS RESULT OUT OF REFERENCE UNITS RANGE LAB MAG(LOINC) 1.6-2.6 mg/dL Magnesium Blood 1.6 Performed By: #### MAG #### [place] [address] Observed: 07/01/2018 Status: F Source: [facility] CULT BLOOD 12:00 PM HEALTH SYSTEM REPOSITORY Test performed at [facility] No growth Performed By: #### C_BLO #### [place] [address] HEMOGRAM Collected: 07/01/2018 Status: F Source: [facility] 11:55 AM HEALTH SYSTEM REPOSITORY TYPE [...] MPV 9.8 Performed By: #### CBC1 #### [place] [address] LACTIC ACID Collected: 07/01/2018 Status: F Source: [facility] 11:55 AM HEALTH SYSTEM REPOSITORY TYPE CODE TESTS RESULT OUT OF REFERENCE UNITS RANGE LAB LAC(LOINC) 0.4-2.0 mEq/L Lactic Acid 0.4 Performed By: #### LAC #### [place] [address] PHOSPHORUS BLOOD Collected: 07/01/2018 Status: F Source: [facility] 11:55 AM HEALTH SYSTEM REPOSITORY TYPE CODE TESTS RESULT OUT OF REFERENCE UNITS RANGE LAB PHOS(LOINC 2.5-4.9 mg/dL ) Phosphorus Blood 3.8 Performed By: #### PHOS #### [place] [address] CRP Collected: 07/01/2018 Status: F Source: [facility] 11:55 AM HEALTH SYSTEM REPOSITORY TYPE CODE TESTS RESULT OUT OF RANGE REFERENCE UNITS LAB CRP3(LOINC) 0.00-0.30 mg/dL High CRP 8.04 Performed By: #### CRP3 #### [facility] [address] [place] [address] COMPREHENSIVE PANEL Collected: 07/01/2018 Status: F Source: [facility] 11:55 AM HEALTH SYSTEM REPOSITORY TYPE [...] Gap 12 Performed By: #### P14 #### [place] [address] MDRD GFR Collected: 07/01/2018 Status: F Source: [facility] 11:[facility] HEALTH SYSTEM REPOSITORY TYPE CODE TESTS RESULT OUT OF RANGE REFERENCE UNITS LAB GFRFN(LOINC >60mL/min/1.73m ) 2 eGFR >60 Result Comment: If the patient is , multiply the result by 1.210. Performed By: #### GFR #### [facility] [address] [place] [id number] PROTIME Collected: 07/01/2018 Status: F Source: [facility] 11:[address] [place] [address] SYSTEM REPOSITORY TYPE CODE TESTS RESULT OUT OF REFERENCE UNITS RANGE LAB PTI(LOINC) 9.7-13.0 sec Prothrombin Time 11.7 LAB INR(LOINC) 0.90-1.30 INR 1.14 Result Comment: Note: Reference Range Change Vitamin K Antagonist (VKA) Therapeutic Range: INR 2 to 3 (Target INR of 2.5) Note: For patients treated with VKA drugs, such as warfarin, the [place] [employer] 2012 Guideline recommends [...] 70: 252-289 Performed By: #### PT #### [place] [address] ACTIVATED PTT Collected: 07/01/2018 Status: F Source: [facility] 11:[address] [place] [address] SYSTEM REPOSITORY TYPE CODE TESTS RESULT OUT [...] laboratory APTT reagent in use throughout the [facility]. Performed By: #### APTT #### [facility] [address] [place], [place] [address] SED RATE Collected: 07/01/2018 Status: F Source: [facility] 11:55 AM HEALTH SYSTEM REPOSITORY TYPE CODE TESTS RESULT OUT OF RANGE REFERENCE UNITS LAB ESR(LOINC) 0-20 mm/hr High Sed Rate 38 Performed By: #### ESR #### [facility] [address] [place], [place] [address] HISTORY PHYSICAL Observed: 07/01/2018 Status: COMPLETED Source: WING 11:14 AM CLINIC OTHER CAMPUS REPOSITORY HNO ID: [id number] Author: Meryl Hogan Service: Hospital Medicine Author Type: Nurse Practitioner Type: HANDP Filed: 07/01/2018 11:50 AM Note Text: Attestation signed by Jose Altamirano at 2018 5:50 PM (Updated) I have personally seen and examined the patient. I agree with the AVIATION TECHNICIAN AIRCRAFT's note with following addition. Ms Marino, a 47 years old lady who has hx of UC and is on Humira Q week (last dose 2 weeks ago) under care of GI (? Dr Bender in [facility]) and multiple bowel surgeries including bowel resection, has abdominal pain for more than a month initially in lower part now generalized worse with food. Has fever in the last few days. Normal BM (reported diarrhea to [facility]), no nausea. Was treated with flagyl for a week a month ago. Last c scope > 5 years ago and last surgery > 5 years ago. She presented to [facility] where she was noted to have [...] 2 weeks ago), under the care of head of biology ? Dr Bender 4. Hx of multiple [...] sx d/t infection who presents to the [facility] from [facility]. Pt called EMS and had them [...] July 01, 2018 TIME: 11:15 AM PAGER: [phone] CT ABDOMEN/PELVIS W Observed: 07/01/2018 Status: F [facility] AM [place] [address] Patient: DAHLIA MARINO Phone#: : [phone] Age: 47 Gender: F Pt. Type: ER Account: [id number] Location: 2 Ordering: DOROTEO TABOR Exam Date: 07/01/2018/0:28 Family Phys: MARLO Pj LANG Charge Code: 908891 Physician: Allen Order #: [id number] DLP Dose#: 9.80 PROCEDURE: CT ABDOMEN/PELVIS WITH [...] 47 Gender: F Pt. Type: ER Account: [id number] Location: 052 Ordering: DOROTEO TABOR Exam Date: 07/01/2018/0:28 Family Phys: MARLO LANG Charge Code: 138960 Physician: Allen Order #: [id number] DLP Dose#: 9.80 ABDOMINAL WALL: Normal. No [...] 8:50 URINALYSIS Collected: 07/01/2018 Status: F Source: [facility] 12:34 AM [facility] REPOSITORY TYPE CODE TESTS RESULT [...] Urobilinog(LOINC) NORMAL: NORMAL Urobilinog NORM LAB Sp Austin(LOINC) NORMAL: 1.010-1.030 Sp Austin 1.015 LAB Nitrite(LOINC) NORMAL: NEGATIVE Nitrite NEG [...] LAB Yeast(LOINC) Yeast NONE Performed By: #### [id number] #### [facility],[address] [place] [address] Observed: 06/30/2018 Status: F Source: [facility]ASH[facility] CULTURE BLOOD 11:25 PM [facility] REPOSITORY CULTURE BLOOD CULTURE BLOOD SET: 2 of 2 24HOUR REPORT NEGATIVE 48HOUR REPORT NEGATIVE 72HOUR REPORT NEGATIVE M I C R O B I O L O G Y R E P O R T FINAL Antimicrobial Susceptibility and Organism Identification Report Specimen Number : [id number] Requested : 06/30/18 Specimen Source : BLOOD Collected : 06/30/18 23:25 [place] [facility] : Emergency Room Received : 06/30/18 23:25 Requesting Physician : christina Patient/Specimen Tests and Comments Specimen Comments FINAL REPORT: No Growth at 5 Days Tech : Source : BLOOD ID # : [id number] FINAL Report Date : / / : Collected : 06/30/18 23:25 07/06/18.1142.BKO. 07/06/18.1142.BKO.COMPLETE Performed By: #### [id number] #### [facility],[address] [place] [address] CBC Collected: 06/30/2018 Status: F Source: [facility] 10:45 PM [facility] REPOSITORY TYPE CODE TESTS RESULT [...] x10EE3/U L Neut # High 10.00 LAB Alexander #(LOINC) 0.20 - 1.00 x10EE3/U L Alexander # High 1.30 LAB EO #(LOINC) 0.00 - 0.50 x10EE3/U L EO # 0.00 LAB Baso #(LOINC) 0.00 - 0.10 x10EE3/U L Baso # 0.10 LAB MANUAL DIFF([facility]) MANUAL DIFF N/A LAB MORPHOLOGY(INC ) MORPHOLOGY N/A Result Comment: {CD] Performed By: #### [id number] #### [place] [address] LACTATE Collected: 06/30/2018 Status: F Source: [facility] 10:45 PM [facility] REPOSITORY TYPE CODE TESTS RESULT OUT OF REFERENCE UNITS RANGE LAB LACTATE(MESSI 4.5 - 18.0 mg/dL NC) Low LACTATE 4.3 Performed By: #### [id number] #### [place] [address] CMP WITH EGFR Collected: 06/30/2018 Status: F Source: [facility] 10:45 PM [facility] REPOSITORY TYPE CODE TESTS RESULT [...] OF AGE AND OLDER. Performed By: #### [id number] #### [place] [id number] LIPASE Collected: 06/30/2018 Status: F Source: [facility] 10:45 [facility] REPOSITORY TYPE CODE TESTS RESULT OUT OF REFERENCE UNITS RANGE LAB LIPASE(LOIN 18.0 - 51.0 U/L C) LIPASE 18.0 Performed By: #### [id number] #### [place] [id number] TROPONIN Collected: 06/30/2018 Status: F Source: [facility] 10:45 [facility] REPOSITORY TYPE CODE TESTS RESULT OUT OF [...] such as heterophile antibodies). Performed By: #### [id number] #### [place] [address] TSH Collected: 06/30/2018 Status: F Source: [facility] 10:45 PM [facility] REPOSITORY TYPE CODE TESTS RESULT OUT OF RANGE REFERENCE UNITS LAB TSH(LOINC) 0.34 - 5.60 uIU/ml Low TSH 0.17 Performed By: #### [id number] #### [place] [address] Observed: 06/30/2018 Status: F Source: [facility] CULTURE BLOOD 10:45 [facility] REPOSITORY CULTURE BLOOD CULTURE BLOOD SET: 1 of 2 24HOUR REPORT NEGATIVE 48HOUR REPORT NEGATIVE 72HOUR REPORT NEGATIVE M I C R O B I O L O G Y R E P O R T FINAL Antimicrobial Susceptibility and Organism Identification Report Specimen Number : [id number] Requested : 06/30/18 Specimen Source : BLOOD Collected : 06/30/18 22:45 [place] [facility] : Emergency Room Received : 06/30/18 22:45 Requesting Physician : christina Patient/Specimen Tests and Comments Specimen Comments FINAL REPORT: No Growth at 5 Days Tech : Source : BLOOD ID # : [id number] FINAL Report Date : / / : Collected : 06/30/18 22:45 07/06/18.1142.BKO. 07/06/18.1142.BKO.COMPLETE Performed By: #### [id number] #### [facility],[address] [place] [address] EMERGENCY REPORT Observed: 06/30/2018 Status: F Source: [facility] 9:55 PM [facility] EMERGENCY ROOM REPORT NAME ACCOUNT SEX AGE ADMIT DISCHARGE PT MED. RECORD# NUMBER DATE DATE TYPE DAHLIA MARINO [id number] F 47 06/30/18 07/01/18 3 R [id number] ROOM: ER DATE OF : 1970 DICTATING [...] first contacted our surgical service here at [facility], who due to this patient's complicated medical history suggested transfer to [place] in [place]. I then contacted [place], who suggested contacting the [facility] due to her complicated history. I then contacted [facility], who was agreeable with accepting the patient. The patient was monitored in our Emergency Department throughout the night and then transferred in stable condition. Dictated By: Doroteo Tabor DO 07/01/18 07:00 JOB #: [id number] Transcribed By: jen 07/01/18 09:44 Electronically signed by: E-SIGN: Doroteo Tabor D.O. 07/08/18 06:49 Page 2 of 2 DAHLIA MARINO Emergency Room Report EMERGENCY REPORT Observed: 06/30/2018 Status: F Source: [facility] 9:55 PM [facility] EMERGENCY ROOM REPORT NAME ACCOUNT SEX AGE ADMIT DISCHARGE PT MED. RECORD# NUMBER DATE DATE TYPE DAHLIA MARINO [id number] F 47 06/30/18 07/01/18 3 R [id number] ROOM: ER DATE OF : 1970 DICTATING [...] Lore Mujica DO 07/01/18 08:22 JOB #: [id number] Transcribed By: jen 07/01/18 10:00 Electronically signed by: E-Sign: LORE MUJICA MD 07/12/18 12:00 Page 1 of 1 DAHLIA MARINO Emergency Room Report EMERGENCY DEPARTMENT Observed: 05/11/2018 Status: F Source: [place] RE[facility] 4:14 PM [facility] [place] [address] HEALTH INFORMATION MANAGEMENT EMERGENCY DEPARTMENT REPORT Patient: DAHLIA MARINO KATIA TAMEZ D.O. [id number] F Status: DEP ER ED Date of Service: 05/08/18 CHIEF COMPLAINT A 47-year-old female. Chief complaint: Vaginal problem. HISTORY OF PRESENT ILLNESS The patient says she has had a recurrent yeast infection. She has had a discolored discharge. She has had a hysterectomy. She does not have a gastroenterology nurse. No other complaints. No abdominal pain, just [...] I am going to refer her to [facility] for followup. <Electronically signed by KATIA TAMEZ D.O.> 05/12/18 0538 KATIA TAMEZ D.O. cc: KATIA TAMEZ D.O. << Signature on File>> Reported By: KATIA TAMEZ D.O. Signed By: KATIA TAMEZ D.O. Tests performed at: [address] [address] ED PROV NOTE Observed: 05/11/2018 Status: COMPLETED Source: [facility] 4:14 PM [facility]INIC MAIN CAMPUS REPOSITORY HNO ID: [id number] Author: Katia Tamez Service: (none) Author Type: Physician Type: ED Provider Notes Filed: 06/23/2018 9:00 PM Note Text: [place] [address] HEALTH INFORMATION MANAGEMENT EMERGENCY DEPARTMENT REPORT Patient: DAHLIA MARINO KATIA TAMEZ D.O. [id number] F Status: [facility] ER ED Date of Service: 05/08/18 CHIEF COMPLAINT A 47-year-old female. Chief complaint: Vaginal problem. HISTORY OF PRESENT ILLNESS The patient says she has had a recurrent yeast infection. She has had a discolored discharge. She has had a hysterectomy. She does not have a gastroenterology nurse. No other complaints. No abdominal pain, just [...] I am going to refer her to [facility] for followup. <Electronically signed by KATIA TAMEZ D.O.> 05/12/18 0538 KATIA TAMEZ D.O. cc: KATIA TAMEZ D.O. << Signature on File>> Reported By: KATIA TAMEZ D.O. Signed By: KATIA TAMEZ D.O. Tests performed at: [address] [address] Observed: 05/08/2018 Status: F Source: [facility] WET PREP 3:09 AM HOSPITAL REPOSITORY WET PREP FEW EPITHELIAL CELLS MANY WBC'S FEW RBC'S NEGATIVE FOR YEAST NEGATIVE FOR TRICHOMONAS Performed By: #### [id number] #### [facility] - [facility] [address] [place] [address] EMERGENCY REPORT Observed: 01/09/2018 Status: F Source: KASHIF KEITA 7:13 PM [facility] EMERGENCY ROOM REPORT NAME ACCOUNT SEX AGE ADMIT DISCHARGE PT MED. RECORD# NUMBER DATE DATE TYPE DAHLIA MARINO [id number] F 47 12/28/17 12/28/17 3 R [id number] ROOM: ER DATE OF : 1970 DICTATING [...] the coronary arteries by Dr. Haque in [place]. She states that she has had an [...] sinus mechanism without an evidence of acute CA. Rate was 93 and this was done [...] Mor Douglass DO 05/08/18 06:44 JOB #: [id number] Transcribed By: sp 12/29/17 05:54 Electronically signed by: E-SIGN MOR RAFAT ARSHAD 01/09/18 19:10 Page 2 of 2 DAHLIA MARINO Emergency Room Report CBC Collected: 12/28/2017 Status: F Source: KASHIF KEITA 4:10 AM [facility] REPOSITORY TYPE CODE TESTS RESULT [...] x10EE3/U L Neut # High 10.70 LAB Alexander #(LOINC) 0.20 - 1.00 x10EE3/U L Alexander # 0.50 LAB EO #(LOINC) 0.00 - 0.50 x10EE3/U L EO # 0.10 LAB Baso #(LOINC) 0.00 - 0.10 x10EE3/U L Baso # 0.00 LAB MANUAL DIFF(LOINC) MANUAL DIFF N/A LAB MORPHOLOGY(LOINC ) MORPHOLOGY N/A Result Comment: {CD] Performed By: #### [id number] #### [facility],[address] [place] [address] CMP WITH EGFR Collected: 12/28/2017 Status: F Source: [facility] 4:10 AM [facility] REPOSITORY TYPE CODE TESTS RESULT [...] OF AGE AND OLDER. Performed By: #### [id number] #### [place] [address] LIPASE Collected: 12/28/2017 Status: F Source: [facility] 4:10 [facility] REPOSITORY TYPE CODE TESTS RESULT OUT OF REFERENCE UNITS RANGE LAB LIPASE(LOIN 18.0 - 51.0 U/L C) LIPASE 25.0 Performed By: #### [id number] #### [place] [address] TROPONIN Collected: 12/28/2017 Status: F Source: [facility] 4:10 [facility] REPOSITORY TYPE CODE TESTS RESULT OUT [...] such as heterophile antibodies). Performed By: #### [id number] #### [place] [address] ALLERGIES ALLERGIES DATE TYPE / NAME / CODE REACTION SEVERITY SOURCE CODE 08/04/2018 Drug doxycycline/[id number] Other Unknown [place] Allergy/41 748(RXNORM) [facility] [id number]([facility]) Repository 08/04/2018 Drug erythromycin Hives Unknown [place] Allergy/41 base/[id number](RXN [facility] 6624372(SN ORM) [facility]) Repository 08/04/2018 Drug metronidazole/F0060 Other Unknown [place] Allergy/41 78281(RXNORM) [facility] 5821416([facility]) Repository 07/01/2018 DRUG DOXYCYCLINE SHORTNESS OF [place] INGREDI/41 Clinic Other 0617038([facility]) Repository 07/01/2018 DRUG METRONIDAZOLE INTOLERANCE [place] INGREDI/41 Clinic Other 0179310([facility]) Repository 07/01/2018 DRUG AZITHROMYCIN SHORTNESS OF [place] INGREDI/41 Clinic Other 2769692([facility] OME [facility]) Repository NG/4991095 DOXYCYCLINE [facility] 06([facility]) Repository NG/5767536 METRONIDAZOLE [facility] 06(SNOM[facility]) Repository NG/4759249 AZITHROMYCIN [facility] 06(SNOM[facility]) Repository Drug DOXYCYCLINE/3583778 Moderate Kashif [place] Allergy/41 0(RXNORM) ([facility] 2496940(SN Modifier) [facility]) (Qualifier Repository Value) Drug FLAGYL/96345125(RXN Moderate Kashif [place] Allergy/41 ORM) ([facility] 6984037(SN Modifier) [facility]) (Qualifier Repository Value) Drug ERYTHROMYCIN/703519 Moderate Kashif [place] Allergy/41 26(RXNORM) ([facility] 2094326(SN Modifier) [facility]) (Qualifier Repository Value) ENCOUNTERS ENCOUNTERS ADMIT/DISCHARGE ACCOUNT NUMBER ADMITTING ENCOUNTER LOCATION SOURCE CLASS 08/09/2018 [id number] [facility] ding:MEDOUTP Repository 08/08/2018 [id number] [facility] ding:MEDOUTP Repository 08/07/2018/08/07/[id number] ding:MEDOUTP Repository 08/06/2018/08/06/[id number] ding:MEDOUTP Repository 08/05/2018 [id number] [facility] ding:MEDOUTP Repository 08/04/2018 [id number] Ambulatory Samara Sam[facility] ding:MEDOUTP Repository 08/04/2018 [id number] Ambulatory [facility] Repository 08/04/2018 [id number] Ambulatory [facility] Repository 08/03/2018 [id number] Ambulatory [place] [facility] ding:MEDOUTP Repository 08/02/2018 [id number] Ambulatory [place] [facility] ding:MEDOUTP Repository 08/01/2018 [id number] Ambulatory [place] [facility] ding:MEDOUTP Repository 07/31/2018/07/31/20 [id number] Ambulatory Samara Samara [address] [place] [address] [facility] ding:MEDOUTP Repository 07/30/2018/07/30/20 [id number] Ambulatory [place] [address] [place] [address] [facility] ding:MEDOUTP Repository Room: [facility] 07/29/2018 [id number] Ambulatory [place] [facility] [place] [facility] ding:MEDOUTP Repository 07/29/2018 [id number] Ambulatory [facility] Repository 07/28/2018 [id number] Ambulatory [place] [facility] ding:MEDOUTP Repository 07/27/2018 [id number] Ambulatory [place] [facility] ding:MEDOUTP Repository 07/26/2018 [id number] Ambulatory Samara Sam[facility] ding:MEDOUTP Repository 07/26/2018 [id number] Ambulatory [facility] Repository 07/25/2018 [id number] Ambulatory [place] [facility] ding:MEDOUTP Repository 07/24/2018/07/24/20 [id number] Ambulatory [place] [address] [place] [address] [facility] ding:MEDOUTP Repository 07/23/2018/07/23/20 [id number] Ambulatory [place] Samara [address] [place] [address] [facility] ding:MEDOUTP Repository 07/22/2018 [id number] Ambulatory [place] [facility] ding:MEDOUTP Repository 07/21/2018 [id number] Ambulatory [facility] ding:MEDOUT Repository 07/17/2018 [id number] Inpatient Buildin[facility] Encounter 4NRoom: System [id number]: Repository [id number] 07/02/2018 [id number] Inpatient [facility] Encounter 6WRoom: System 7I2824Okq: Repository [id number] 07/01/2018/07/02/20 [id number] TETYUK, Inpatient [place] 18 PENELOPE Encounter Clinic Other [place] Repository 07/01/2018/07/02/20 [id number] TETYUK, Inpatient AK[place] [facility] 18 PENELOPE Encounter [facility] MEDICAL Repository CENTERBuildi nRoom: 7121Bed: 06/30/2018/07/01/20 [id number] CHRISTINA, Emergency Buildin[address] [place] [address] 18 DOROTEO D Room: ERBed: [facility] Repository 05/08/2018/05/08/20 [id number] Emergency UNIBuilding: [address] Repository 12/28/2017/12/29/19 [id number] RAFAT, Emergency Buildin[address] [place] [address] 18 MOR DO Room: ERBed: [facility] Repository PAYERS PAYERS ENCOUNTER GUARANTOR 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 SOURCE 08/09/2018 DAHLIA Hathaway Primary Insurance:SELF NOT GIVENUNK [place] [id number] [facility] [place] Date:2018-07-26 Repository [address]Zgq: () 08/08/2018 DAHLIA Hathaway Primary Insurance:SELF NOT GIVENUNK [place] [id number] [facility]Y [facility] Number: Effective [facility] [place] Date:2018-07-26 Repository [address]Gta: () 08/07/2018 DAHLIA Hathaway Primary Insurance:SELF NOT GIVENUNK [place] [id number] [facility]Y [facility] Number: Effective [facility] [place] Date:2018-07-26 Repository [address]Cxf: () 08/06/2018 DAHLIA Hathaway Primary Insurance:SELF NOT GIVENUNK [place] [id number] PAY INSUR[facility] [place] Number: Effective [facility] [place] Date:2018-07-26 Repository [address]Cvm: () 08/05/2018 DAHLIA R Primary Insurance:SELF NOT GIVENUNK [place] [id number] [facility]Y [facility] Number: Effective [facility] [place] Date:2018-07-26 Repository [address]Ugg: (HP) 08/04/2018 DAHLIA R Primary Insurance:SELF NOT GIVENUNK [place] [id number] [facility]Y [facility] Number: Effective [facility] [place] Date:2018-07-26 Repository 89[address]Wew: () 08/04/2018 Dahlia Primary Dahlia BarkfrancisDOB: [facility] BarkfrancisDOB: Insurance:MedicarePoli [id number] System cy Number: Effective Repository Morgan Date: [place], [place] [address]Vqq: () 08/04/2018 Secondary Dahlia BarkfrancisDOB: [facility] Insurance:Self [id number] System PayPolicy Number: Repository Effective Date: 08/04/2018 [facility] Primary Dahlia BarkfrancisDOB: [facility] BarkDOB: Insurance:MedicarePoli [id number] System cy Number: Effective Repository Morgan Date: [place], [place] [address]Ebp: () 08/04/2018 Secondary Dahlia BarkfrancisDOB: [facility] Insurance:MedicarePoli [id number] System cy Number: Effective Repository Date: 08/03/2018 DAHLIA R Primary Insurance:SELF NOT GIVENUNK [place] [id number] PAY [facility] Number: Effective [facility] [place] Date:2018-07-26 Repository 17[address]Omk: (HP) 08/02/2018 DAHLIA R Primary Insurance:SELF NOT GIVENUNK [place] [id number] PAY [facility] Number: Effective [facility] [place] Date:2018-07-26 Repository 287[address]Ggd: () 08/01/2018 DAHLIA Hathaway Primary DAHLIA Hathaway [place] [id number] Insurance:MEDICARE A BARKESDOB: [facility] ONLYPolicy Number: [id number], [place] [id number] Repository [address]Llx: (330) Date:2018-07-26 [phone] () 08/01/2018 Secondary NOT GIVENUNK [place] Insurance:SELF PAY [facility] Number: Effective Repository Date:2018-07-26 07/31/2018 DAHLIA Hathaway Primary DAHLIA Hathaway [place] [id number] Insurance:MEDICARE A BARKESDOB: [facility] Number: [id number], [place] [id number] Repository [address]Kol: (330) Date:2018-07-26 [phone] () 07/31/2018 Secondary NOT GIVENUNK [place] Insurance:SELF PAY [facility] Number: Effective Repository Date:2018-07-26 07/30/2018 DAHLIA Hathaway Primary DAHLIA Hathaway [place] [id number] Insurance:MEDICARE A BARKESDOB: [facility] Number: [id number], [place] [id number] Repository [address]Bgt: (330) Date:2018-07-26 [phone] () 07/30/2018 Secondary NOT GIVENUNK [place] Insurance:SELF PAY [facility] Number: Effective Repository Date:2018-07-26 07/29/2018 DAHLIA Hathaawy Primary DAHLIA [place] [id number] Insurance:MEDICARE A BARKESDOB: [facility] Number: [id number], [place] [id number] Repository [address]Whv: (330) Date:2018-07-26 [phone] () 07/29/2018 Secondary NOT GIVENUNK [place] Insurance:SELF PAY [facility] Number: Effective Repository Date:2018-07-26 07/29/2018 Dahlia Villagomez BarkfrancisDOB: [facility] BarkesDOB: Insurance:MedicarePoli [id number] System cy Number: Effective Repository Morgan Date: [place], [place] [address]Ajf: (HP) 07/28/2018 DAHLIA R Primary DAHLIA R [place] [id number] Insurance:MEDICARE A BARKESDOB: [facility] ONLYPolicy Number: [id number], [place] [id number] Repository [address]Rnk: 330) Date:2018-07-26 [phone] (HP) 07/28/2018 Secondary NOT GIVENUNK [place] Insurance:SELF PAY [facility] Number: Effective Repository Date:2018-07-26 07/27/2018 DAHLIA R Primary Insurance:SELF NOT GIVENUNK [place] [id number] PAY [facility] Number: Effective [place] Date:2018-07-26 Repository [address]Dpx: (HP) 07/26/2018 DAHLIA R Primary DAHLIA R [place] [id number] Insurance:MEDICARE A BARKESDOB: [facility] ONLYPolicy Number: [id number], [place] [id number] Repository [address]Rzw: 330) Date:2018-07-26 [phone] (HP) 07/26/2018 Secondary NOT GIVENUNK [place] Insurance:SELF PAY [facility] Number: Effective Repository Date:2018-07-26 07/26/2018 Dahlia Primary Dahlia BarkesDOB: [facility] BarkesDOB: Insurance:MedicarePoli [id number] System cy Number: Effective Repository Morgan Date: [place], [place] [address]Fgb: (HP) 07/26/2018 Secondary Dahlia BarkfrancisDOB: [facility] Insurance:Self [id number] System PayPolicy Number: Repository Effective Date: 07/25/2018 DAHLIA R Primary DAHLIA R [place] [id number] Insurance:MEDICARE A BARKESDOB: [facility] ONLYPolicy Number: [id number], [place] [id number] Repository [address]Lth: (330) Date:2018-07-20 [phone] (HP) 07/25/2018 Secondary NOT GIVENUNK [place] Insurance:SELF PAY [facility] Number: Effective Repository Date:2018-07-20 07/24/2018 DAHLIA R Primary DAHLIA R [place] [id number] Insurance:MEDICARE A BARKESDOB: [facility] Number: [id number] [place], [place] [id number] Repository [address]Doe: (330) Date:2018-07-20 [phone] (HP) 07/24/2018 Secondary NOT GIVENUNK [place] Insurance:SELF PAY [facility] Number: Effective Repository Date:2018-07-20 07/23/2018 DAHLIA R Primary Insurance:SELF NOT GIVENUNK [place] [id number] PAY [facility] Number: Effective [place] Date:2018-07-20 Repository [address]Elb: () 07/22/2018 DAHLIA R Primary Insurance:SELF NOT GIVENUNK [place] [id number] PAY [facility] Number: Effective [place] Date:2018-07-20 Repository [address]Iix: (HP) 07/21/2018 DAHLIA R Primary Insurance:SELF NOT GIVENUNK [place] [id number] [facility]Y [facility] Number: Effective [place] Date:2018-07-20 Repository [address]Vvn: (HP) 07/17/2018 Dahlia [facility]: Insurance:MedicarePoli [id number] System cy Number: Effective [facility] Date: [place], [place] [address]Zbx: (HP) 07/02/2018 [facility] BarkDOB: [facility] BarkDOB: Insurance:MedicarePoli [id number] System cy Number: Effective [facility] Date: [place], [place] [address]Ssp: (HP) 07/02/2018 Secondary Dahlia BarkesDOB: [facility] Insurance:Self [id number] System PayPolicy Number: Repository Effective Date: 07/01/2018 DAHLIA R Primary DAHLIA R [facility] BARKDOB: Insurance:[facility] System APolicy Number: [id number] Repository [place] [id number] [place], [place] Date: [address]Tes: () 06/30/2018 DAHLIA R Primary DAHLIA R Kashif Keita BARKESDOB: Insurance:[facility]: [facility]Pol[facility] [id number] [place] [address] Number: [place] Repository [place], [place] [id number] [place] [id number]: Date:Plan Name: [id number] () 05/08/2018 DAHLIA R Primary DAHLIA R [facility] [id number] Insurance:[facility]ARE [facility] [place] DISABILITYPolicy Repository [place], [place] Number: [address]Ktc: (189) [id number] [phone] () Date: 12/28/2017 DAHLIA R Primary DAHLIA R Kashif Keita BARKESDOB: Insurance:MEDICARE BARKESDOB: [facility] OUTPATIENTPolicy [id number] [place] [address] Number: [place] Repository [place], [place] [id number] [place] [id number]: Date:Plan Name: [id number] ()
== END 2018-07-23 16:05 | disposition home or self-care (01) ==
LOC: MEDOUTP 14:18 → MS2 14:27
PROVIDERS: Referring Provider Internal Medicine Infectious Disease; Visit Provider Internal Medicine Infectious Disease
DX: K65.1 Peritoneal abscess (principal)
CPT/HCPCS: 96365

== ENCOUNTER 2018-07-24 13:37 | Outpatient (CLI) | payer MEDICARE, SELFPAY ==
[2018-07-22 14:20] VITALS: BMI 24.0
[2018-07-24 14:29] VITALS: BP 130/71; PULSE 79; RESP 18; TEMP 37.1; O2SAT 97; BMI 24.0
--- OUTSIDE RECORDS SUMMARY | 2018-09-16 23:34 | XMS RPT_ITS ---
:1970 Author Organization OHIP Support Name Relationship Address Phone NILDA MARINOT Unavailable [address] [place] [address] + [place] [address] BROWN, DINAH Unavailable Unavailable + D Unavailable Unavailable Unavailable BARKES, MARS Unavailable [address] + [place] [address] BROWN, DIANH Unavailable Unavailable + D Unavailable Unavailable Unavailable BARKES, MARS Unavailable [address] + [place] [address] BROWN, DINAH Unavailable Unavailable + D Unavailable Unavailable Unavailable BARKES, MARS Unavailable [address] + [place] [address] BROWN, DINAH Unavailable Unavailable + D Unavailable Unavailable Unavailable BARKES, MARS Unavailable [address] + [place] [address] BROWN, DINAH Unavailable Unavailable + D Unavailable Unavailable Unavailable BARKES, MARS Unavailable [address] + [place] [address] BROWN, DINAH Unavailable Unavailable + D Unavailable Unavailable Unavailable BARKES, MARS Unavailable [address] + [place] [address] BROWN, DINAH Unavailable Unavailable + D Unavailable Unavailable Unavailable Barkes, Mars Unavailable Unavailable + Brown, Dinah Unavailable Unavailable + Barkes, Mars Unavailable Unavailable + Brown, Dinah Unavailable Unavailable + BARKES, MARS Unavailable [address] + [place] [address] BROWN, DINAH Unavailable Unavailable + D Unavailable Unavailable Unavailable BARKES, MARS Unavailable [address] + [place] [address] BROWN, DINAH Unavailable Unavailable + D Unavailable Unavailable Unavailable BARKES, MARS Unavailable [address] + [place] [address] BROWN, DINAH Unavailable Unavailable + D Unavailable Unavailable Unavailable BARKES, MARS Unavailable [address] + [place] [address] BROWN, DINAH Unavailable Unavailable + D Unavailable Unavailable Unavailable BARKES, MARS Unavailable [address] + [place] [address] BROWN, DINAH Unavailable Unavailable + D Unavailable Unavailable Unavailable BARKES, MARS Unavailable [address] + [place] [address] BROWN, DINAH Unavailable Unavailable + D Unavailable Unavailable Unavailable Barkes, Mars Unavailable Unavailable + Brown, Dinah Unavailable Unavailable + BARKES, MARS Unavailable [address] + [place] [address] BROWN, DINAH Unavailable Unavailable + D Unavailable Unavailable Unavailable BARKES, MARS Unavailable [address] + [place] [address] BROWN, DINAH Unavailable Unavailable + D Unavailable Unavailable Unavailable BARKES, MARS Unavailable [address] + [place] [address] BROWN, DINAH Unavailable Unavailable + D Unavailable Unavailable Unavailable Barkes, Mars Unavailable Unavailable + Brown, Dinah Unavailable Unavailable + BARKES, MARS Unavailable [address] + [place] [address] BROWN, DINAH Unavailable Unavailable + D Unavailable Unavailable Unavailable BARKES, MARS Unavailable [address] + [place] [address] BROWN, DINAH Unavailable Unavailable + D Unavailable Unavailable Unavailable BARKES, MARS Unavailable Unavailable + BROWN, DINAH Unavailable Unavailable + D Unavailable Unavailable Unavailable BARKES, MARS Unavailable Unavailable + BROWN, DINAH Unavailable Unavailable + D Unavailable Unavailable Unavailable BARKES, MARS Unavailable Unavailable + BROWN, DINAH Unavailable Unavailable + UE Unavailable Unavailable Unavailable Barkes, Mars Unavailable Unavailable + Brown, Dinah Unavailable Unavailable + Barkes, Mars Unavailable Unavailable + Brown, Dinah Unavailable Unavailable + BARKES, LANCE Unavailable [address] + [place], [place] [id number] BARKES, MARS Unavailable Unavailable Unavailable NOT GIVEN Unavailable Unavailable Unavailable BARKES, LANCE Unavailable [address] + [place], [place] [id number] BARKES, MARS Unavailable Unavailable Unavailable NOT GIVEN [...] Unavailable Jonh Esparza Attending Unavailable Mandapat, Daya Referring Unavailable JOSE [...] Admitting Unavailable MOR DOUGLASS DO Attending Unavailable OMLEY, MOR DO Primary Care Unavailable MARLO LANG MD Consulting Unavailable MARLO LANG MD Referring Unavailable PROVIDER, UNKNOWN Consulting Unavailable DOROTEO TABOR Admitting Unavailable DOROTEO TABOR Attending Unavailable MARLO LANG MD Referring Unavailable DOROTEO TABOR Primary Care Unavailable MARLO LANG MD Consulting Unavailable PROVIDER, UNKNOWN Consulting Unavailable NIALL PERSAUDIA Admitting Unavailable CORI PENELOPE Attending Unavailable Jan MCGOWAN Consulting Unavailable NICK MONTENEGRO Consulting Unavailable PROBLEMS PROBLEMS DATE TYPE CONDITION / CODE ATTENDING STATUS SOURCE 07/26/2018 Admitting Candidiasis of vulva [facility], Active [employer] Diagnosis and vagina / [facility] B37.3(ICD-10) Repository 07/26/2018 Admitting Encntr for f/u exam [facility], Active [employer] Diagnosis aft trtmt for cond [facility] oth than malig Repository neoplm / Z09(ICD-10) 07/26/2018 Admitting Crohn's disease of [facility], [employer] Diagnosis both small and lg [facility] int w oth Repository complication / K50.818(ICD-10) 07/02/2018 Admitting Peritoneal abscess / Oscar, [employer] Diagnosis K65.1(ICD-10) [facility] Repository 07/02/2018 Admitting Crohn's disease, [employer] Diagnosis unspecified, with [facility] abscess / Repository K50.914(ICD-10) 07/02/2018 Admitting Unspecified severe [employer] Diagnosis protein-calorie [facility] malnutrition / Repository E43(ICD-10) 07/02/2018 Admitting Complex regional Oscar, [employer]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 I, [facility] unspecified / Repository G90.50(ICD-10) 07/02/2018 Admitting Urinary tract [employer] Diagnosis infection, site not [facility] specified / Repository N39.0(ICD-10) 07/02/2018 Admitting Personal history of [employer] Diagnosis nicotine dependence [facility] / Z87.891(ICD-10) Repository 07/02/2018 Admitting Fibromyalgia / Oscar, [employer] Diagnosis M79.7(ICD-10) [facility] Repository 07/02/2018 Admitting Hypothyroidism, [facility], [facility] Diagnosis unspecified / [facility] E03.9(ICD-10) Repository 07/02/2018 Admitting Presence of coronary [facility] Diagnosis angioplasty implant [facility] and graft / Repository Z95.5(ICD-10) 07/02/2018 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 Repository / I25.10(ICD-10) 07/02/2018 Admitting Body mass index [facility] Diagnosis (BMI) 24.0-24.9, [facility] adult / Repository Z68.24(ICD-10) 07/02/2018 Admitting Abnormal weight loss [facility] Diagnosis / R63.4(ICD-10) [facility] Repository 07/02/2018 Admitting Elevated white blood [facility] [employer] Diagnosis cell count, [facility] unspecified / Repository D72.829(ICD-10) 07/02/2018 Admitting Hypokalemia / [facility] [employer] Diagnosis E87.6(ICD-10) [facility] Repository 07/02/2018 Admitting Hypomagnesemia / [facility] Diagnosis E83.42(ICD-10) [facility] Repository 07/02/2018 Admitting Anemia, unspecified [facility] [employer] Diagnosis / D64.9(ICD-10) [facility] Repository 07/01/2018 Active Unknown / TETJUSTIN, Active [facility](Unknown) [facility] Other [place] Repository 05/08/2018 Admitting Unknown / NA Active [facility] diagnosis UNK(Unknown) Hospital Repository 12/28/2017 Admitting Vomiting, OMNATALI 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 unspecified / DO [facility] R1110(ICD-10) Hospital Repository 12/28/2017 Principle Noninfective OMLEY, 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 gastroenteritis and DO [facility] colitis, unspecified Hospital / K529(ICD-10) Repository 12/28/2017 Secondary Crohn's disease, OMLEY, 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 unspecified, without [facility] complications / Hospital K5090(ICD-10) Repository 12/28/2017 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 Repository angina pectoris / I2510(ICD-10) 12/28/2017 Secondary Presence of coronary MOR DOUGLASS Active [employer] Diagnosis angioplasty implant [facility] / [facility] Z955(ICD-10) Repository PROCEDURES PROCEDURES No Procedure Records FoundRESULTS RESULTS CT ABDOMEN/PELVIS W/ Observed: 08/04/2018 Status: F Source: [facility] CONTRAST 1:01 PM SYSTEM REPOSITORY Patient Name: DAHLIA MARINO CT Exam Date/Time 08/04/2018 12:09:[address] Abdomen/Pelvis w/ IV Contrast (IV Onl Ordering Physician MD MEDRANO DIANA Accession Number [id number] CPT4 Codes 67670 (CT Abdomen/Pelvis w/ IV Contrast (IV Onl), Q9967 (CT ISOVUE 370MG/[id number]) Reason For Exam RLQ phlegmon vs abscess [...] METABOLIC PANEL Collected: 08/04/2018 Status: F Source: [facility] 9:09 AM SYSTEM REPOSITORY TYPE CODE TESTS [...] Calcium 8.8 Performed By: #### BMP3 #### [facility] [address] [place] [phone] CBC W/DIFF, AUTOMATED Collected: 08/03/2018 Status: F Source: [place] 2:13 PM [facility] REPOSITORY TYPE CODE TESTS RESULT [...] Lymph 1.92 Performed By: #### L100.0100 #### [facility] [address] [place], [address] COMPREHENSIVE METABOLIC Collected: 08/03/2018 Status: F Source: [facility] [facility] 2:13 PM [facility] REPOSITORY TYPE CODE TESTS RESULT [...] 9 GAP Performed By: #### L500.4050 #### [facility] [address] [place], [place], [id number] CBC W/DIFF, AUTOMATED Collected: 07/27/2018 Status: F Source: [place] 2:06 PM [facility] REPOSITORY TYPE CODE TESTS RESULT [...] Lymph 1.89 Performed By: #### L100.0100 #### [facility] [address] [place], [address] COMPREHENSIVE METABOLIC Collected: 07/27/2018 Status: F Source: [facility] 2:06 [facility]POS[facility] TYPE CODE TESTS RESULT OUT OF [...] Normal 7 Performed By: #### L500.4050 #### [facility] [address] [place], [place], [id number] CBC W/DIFF, AUTOMATED Collected: 07/21/2018 Status: F Source: [place] 2:35 PM [facility] REPOSITORY TYPE CODE TESTS RESULT [...] Lymph 1.50 Performed By: #### L100.0100 #### [facility] [address] [place], [place], [phone] COMPREHENSIVE METABOLIC Collected: 07/21/2018 Status: F [facility] 2:35 PM [facility] REPOSITORY TYPE CODE TESTS RESULT [...] GAP 4 Performed By: #### L500.4050 #### [facility] [address] [place], [address] CR CHEST PORTABLE Observed: 07/20/2018 Status: F Source: [facility] 6:44 PM SYSTEM REPOSITORY Patient Name: DAHLIA MARINON: [id number] Diagnostic Radiology Exam Date/Time 07/20/2018 16:55:27 EST Exam CR Chest Portable Ordering Physician DO PINON KATHRYN C Accession Number [id number] CPT4 Codes 46530 () Reason For Exam Line placement Report [...] DISCHARGE SUMMARY Observed: 07/20/2018 Status: F Source: [facility] 1:18 PM SYSTEM REPOSITORY Attestation signed by [...] (bowel resections x8), hypothyroidism, FM. Presented to [facility] ED on 07/17/18 with worsening abdominal pain. Patient was admitted to [facility] ED in 07/10, discharged 07/04/18. During that [...] follow up with her GI doctor in [place], urged her to set up a follow up appointment soon after discharge. ID placed infusion orders for center in [place] with an appointment to start tomorrow. PROCEDURES: PICC placement CONSULTANTS: Interventional Radiology General Surgery Gastrointestinal Infectious Disease DISCHARGE MEDICATIONS: Dahlia Marino Home Medication Instructions MARLYN:[id number] Printed on:07/20/18 7656 Medication Information calcium-vitamin D (OSCAL) 250-125 MG-UNIT [...] Complexity: follow up within 7-14 calendar days (01054) [x] Severe Complexity: follow up within 7 calendar days (34643) FOLLOW UP TESTING, PENDING RESULTS OR REFERRALS AT TRANSITIONAL CARE VISIT: CT of abdomen after 2-3 weeks of abx [x] Yes [] No RECOMMENDED NEXT STEPS: Please follow up with Dr. Langston at the [facility] at 10am on 07/26/2018. Please follow up with your GI doctor in [place]. Please follow up with Dr. Micheline Barnard of general surgery at [phone] as soon as possible for a follow up appointment in two weeks . DISPOSITION: Home Follow up with Dr. Langston at the [facility] at 10am on 07/26/2018. INSTRUCTIONS TO MA/SW: [...] frame. TIFERON Collected: 07/20/2018 Status: F Source: [facility] 11:02 AM SYSTEM REPOSITORY TYPE CODE TESTS RESULT OUT OF REFERENCE UNITS RANGE LAB QTF Negative NA Quantiferon Negative Performed By: #### QTF #### [facility] [address] [place] [address] HEMOGRAM Collected: 07/20/2018 Status: F Source: [facility] 4:25 AM SYSTEM REPOSITORY TYPE CODE TESTS [...] By: #### HEMOG, BMP3M, MG3, PHOS3 #### [facility] [address] [place] [address] BASIC METABOLIC PANEL Collected: 07/20/2018 Status: F Source: [facility] 4:25 AM SYSTEM REPOSITORY TYPE CODE TESTS [...] By: #### HEMOG, BMP3M, MG3, PHOS3 #### [facility] [address] [place] [phone] MAGNESIUM Collected: 07/20/2018 Status: F Source: [facility] 4:25 AM SYSTEM REPOSITORY TYPE CODE TESTS RESULT OUT OF REFERENCE UNITS RANGE LAB MG3 1.6-2.3 mg/dL Low Magnesium 1.5 Performed By: #### HEMOG, BMP3M, MG3, PHOS3 #### [facility] [place] PHOSPHORUS Collected: 07/20/2018 Status: F Source: [facility] 4:25 AM SYSTEM REPOSITORY TYPE CODE TESTS RESULT OUT OF RANGE REFERENCE UNITS LAB PHOS3 2.5-4.5 mg/dL Normal Phosphorus 4.3 Performed By: #### HEMOG, BMP3M, MG3, PHOS3 #### [facility] [address] [place] [address] Observed: 07/19/2018 Status: F Source: [facility] CLOSTRIDIUM DIFFICILE 10:53 PM SYSTEM REPOSITORY PCR [...] be submitted. Performed By: #### CDPCR #### [facility] [place] [phone] HEMOGRAM Collected: 07/19/2018 Status: F Source: [facility] 5:29 AM SYSTEM REPOSITORY TYPE CODE TESTS [...] fL Low MPV 7.2 Performed By: #### HEMBI, BMP3M, MG3, PHOS3 #### [facility] [address] [place] [phone] BASIC METABOLIC PANEL Collected: 07/19/2018 Status: F Source: [facility] 5:29 AM SYSTEM REPOSITORY TYPE CODE TESTS [...] By: #### HEMOG, BMP3M, MG3, PHOS3 #### [facility] [address] [place] [address] MAGNESIUM Collected: 07/19/2018 Status: F Source: [facility] 5:29 AM SYSTEM REPOSITORY TYPE CODE TESTS RESULT OUT OF RANGE REFERENCE UNITS LAB MG3 1.6-2.3 mg/dL Normal Magnesium 1.6 Performed By: #### HEMOG, BMP3M, MG3, PHOS3 #### [facility] [address] [place] PHOSPHORUS Collected: 07/19/2018 Status: F Source: [facility] 5:29 AM SYSTEM REPOSITORY TYPE CODE TESTS RESULT OUT OF RANGE REFERENCE UNITS LAB PHOS3 2.5-4.5 mg/dL Normal Phosphorus 3.4 Performed By: #### HEMOG, BMP3M, MG3, PHOS3 #### [facility] [address] [place] [address] HEMOGRAM Collected: 07/18/2018 Status: F Source: [facility] 5:02 AM SYSTEM REPOSITORY TYPE CODE TESTS [...] By: #### HEMOG, BMP3M, MG3, PHOS3 #### [employer] [facility] [address] [place] [address] BASIC METABOLIC PANEL Collected: 07/18/2018 Status: F Source: [facility] 5:02 AM SYSTEM REPOSITORY TYPE CODE TESTS [...] By: #### HEMOG, BMP3M, MG3, PHOS3 #### [employer] [facility] [address] [place] [phone] MAGNESIUM Collected: 07/18/2018 Status: F Source: [facility] 5:02 AM SYSTEM REPOSITORY TYPE CODE TESTS RESULT OUT OF RANGE REFERENCE UNITS LAB MG3 1.6-2.3 mg/dL Normal Magnesium 1.6 Performed By: #### HEMOG, BMP3M, MG3, PHOS3 #### [facility] [address] [place] [phone] PHOSPHORUS Collected: 07/18/2018 Status: F Source: [facility] 5:02 AM SYSTEM REPOSITORY TYPE CODE TESTS RESULT OUT OF RANGE REFERENCE UNITS LAB PHOS3 2.5-4.5 mg/dL Normal Phosphorus 3.5 Performed By: #### HEMOG, BMP3M, MG3, PHOS3 #### [facility] [address] [place] [phone] BASIC METABOLIC PANEL Collected: 07/17/2018 Status: F Source: [facility] 2:00 PM SYSTEM REPOSITORY TYPE CODE TESTS [...] Calcium 7.5 Performed By: #### BMP3 #### [facility] [address] [place] [phone] LACTIC ACID Collected: 07/17/2018 Status: F Source: [facility] 11:25 AM SYSTEM REPOSITORY TYPE CODE TESTS RESULT OUT OF REFERENCE UNITS RANGE LAB LACT3 0.7-2.0 mmol/L Low Lactic Acid < 0.5 Performed By: #### LACT3 #### [facility] [address] [place] [address] Observed: 07/17/2018 Status: F Source: [facility] CULTURE URINE 8:28 AM SYSTEM REPOSITORY Order Comment: Specimen Source Comment:Urine, clean catch CULTURE URINE --> Status: F Normal urogenital elham present. Performed By: #### C/UR #### [facility] [address] [place] [phone] [address] ABDOMEN/PELVIS W/ Observed: 07/17/2018 Status: F Source: [facility] CONTRAST 5:09 AM SYSTEM REPOSITORY Patient Name: DAHLIA MARINO CT Exam Date/Time 07/17/2018 05:32:[address] Abdomen/Pelvis w/ IV Contrast (IV Onl Ordering Physician MD JAMIR, IRENE Gray Accession Number [id number] CPT4 Codes 66366 (CT Abdomen/Pelvis w/ IV Contrast (IV Onl), Q9967 (CT ISOVUE 370MG/[id number]) Reason For Exam recent abscess due to [...] 07/17/2018 5:09 Observed: 07/17/2018 Status: F Source: [facility] CULTURE BLOOD 4:57 AM SYSTEM REPOSITORY Order Comment: Specimen Source Comment:Blood CULTURE BLOOD --> Status: F No growth at 5 days. Performed By: #### C/BLD #### [facility] [address] [place] [phone] Observed: 07/17/2018 Status: F Source: [facility] CULTURE BLOOD (TWO) 4:01 AM SYSTEM REPOSITORY Order Comment: Specimen Source Comment:Blood CULTURE BLOOD (Two) --> Status: F No growth at 5 days. Performed By: #### C/BLT #### [address] [phone] HEMOGRAM W/ AUTODIFF Collected: 07/17/2018 Status: F Source: [facility] 4:00 AM SYSTEM REPOSITORY TYPE CODE TESTS [...] LIPA4, LFT3, BMP3, CRP2, ESR, PCAL #### [address] [address] LACTIC ACID Collected: 07/17/2018 Status: F Source: [facility] 4:00 AM SYSTEM REPOSITORY TYPE CODE TESTS RESULT OUT OF RANGE REFERENCE UNITS LAB LACT3 0.7-2.0 mmol/L Normal Lactic Acid 1.2 Performed By: #### HEMDF, LACT3, LIPA4, LFT3, BMP3, CRP2, ESR, PCAL #### [facility] [address] [place] [phone] LIPASE Collected: 07/17/2018 Status: F Source: [facility] 4:00 AM SYSTEM REPOSITORY TYPE CODE TESTS RESULT OUT OF RANGE REFERENCE UNITS LAB LIPA4 23-300 U/L Normal Lipase 38 Performed By: #### HEMDF, LACT3, LIPA4, LFT3, BMP3, CRP2, ESR, PCAL #### [facility] [address] [place] [phone] HEPATIC FUNCTION Collected: 07/17/2018 Status: F Source: [facility] 4:00 AM SYSTEM REPOSITORY TYPE CODE TESTS [...] LIPA4, LFT3, BMP3, CRP2, ESR, PCAL #### [facility] [address] [place] [phone] BASIC METABOLIC PANEL Collected: 07/17/2018 Status: F Source: [facility] 4:00 AM SYSTEM REPOSITORY TYPE CODE TESTS [...] LIPA4, LFT3, BMP3, CRP2, ESR, PCAL #### [facility] [address] [place] [address] C-REACTIVE PROTEIN Collected: 07/17/2018 Status: F Source: [facility] 4:00 AM SYSTEM REPOSITORY TYPE CODE TESTS RESULT OUT OF REFERENCE UNITS RANGE LAB 2CRP 0.0-6.0 mg/L High C-Reactive 11.6 Protein Result Comment: . Performed By: #### HEMDF, LACT3, LIPA4, LFT3, BMP3, CRP2, ESR, PCAL #### [facility] [address] [place] [address] SED RATE Collected: 07/17/2018 Status: F Source: [facility] 4:00 AM SYSTEM REPOSITORY TYPE CODE TESTS RESULT OUT OF RANGE REFERENCE UNITS LAB ESR 0-20 mm/h High Sed Rate 27 Performed By: #### HEMDF, LACT3, LIPA4, LFT3, BMP3, CRP2, ESR, PCAL #### [facility] [address] [place] [address] PROCALCITONIN Collected: 07/17/2018 Status: F Source: [facility] 4:00 AM SYSTEM REPOSITORY TYPE CODE TESTS RESULT OUT OF REFERENCE UNITS RANGE LAB PRO <0.10 ng/mL Procalcitonin Normal < 0.10 LAB INT3 NA Interpretation See Below Result Comment: PCT <0.50 = Low risk of severe sepsis and/or septic shock. PCT >2.00 = High risk of severe sepsis and/or septic shock. Performed By: #### HEMDF, LACT3, LIPA4, LFT3, BMP3, CRP2, ESR, PCAL #### [facility] [address] [place] [address] ED PROVIDER NOTE Observed: 07/17/2018 Status: F Source: [facility] 2:30 AM SYSTEM REPOSITORY [facility] EM[facility]GENCY DEPT eMERGENCY dEPARTMENT eNCOUnter Pt Name: Dahlia Marino Birthdate 1970 Date of evaluation: 07/17/2018 Provider: Irene Marlow MD Chief Complaint: No chief complaint on file. SOKAOGON: Dahlia Marino is a 48 y.o. female [...] antibiotics in the hospital. She is from [place] but was referred here because the hospital [...] by myself in the absence of a harness preparer) none Chart review shows recent radiographs: Ct Abdomen Pelvis W Contrast Result Date: 07/02/2018 Patient Name: DAHLIA MARINO ---CT--- Exam Date/Time 07/02/2018 07:47:[address] Abdomen/Pelvis w/ IV Contrast (IV Onl Ordering Physician MD IVIS, MPH, MICHELINE Accession Number [id number] CPT4 Codes 65181 (CT Abdomen/Pelvis w/ IV Contrast (IV Onl), Q9967 (CT ISOVUE 370MG/[id number]&[id number]) Reason For Exam Crohns flare, known abscess [...] PROVIDER NOTE Observed: 07/17/2018 Status: F Source: [facility] 2:30 AM SYSTEM REPOSITORY Emergency Department Encounter Location: [facility]ERGENCY DEPT Patient: Dahlia Marino : 1970 [...] # 1.4 1.0 - 4.3 10*3/uL Absolute [place] # 1.2 (H) 0.0 - 0.8 10*3/uL [...] eGFR >60.0 >60 mL/min EGFR IF NonAfrican Micronesian >60.0 >60 mL/min Calcium 8.1 (L) 8.4 [...] Physician MD JAMIR, IRENE Gray Accession Number [id number] CPT4 Codes 90557 (CT Abdomen/Pelvis w/ IV Contrast (IV Onl), Q9967 (CT ISOVUE 370MG/[id number]&ML&[id number]) Reason For Exam recent abscess due to [...] Time: 07/17/2018 5:16 am Signed by: MD VANGIE, SRIDHAR Transcribed Date and Time: 07/17/2018 5:09 Final [...] 0.9 % sodium chloride bolus ONCE Last OCT action: New Bag - by LINN GERONIMO on 07/17/18 at 0412 IRENE MARLOW 07/17/18 0249 07/17/18 0250 HYDROmorphone (DILAUDID) injection 1 mg EVERY 15 MIN PRN Last OCT action: Given - by LINN GERONIMO on 07/17/18 at 0412 IRENE MARLOW Final Impression 1. Generalized abdominal pain 2. History of Crohn's disease DISPOSITION Decision To Admit 07/17/2018 05:48:49 AM (Please note that portions of this note may have been completed with a voice recognition program. Efforts were made to edit the dictations but occasionally words are mis-transcribed.) Bon Mercedes MD Acute [facility] Bon Mercedes MD 07/17/18 0551 DISCHARGE SUMMARY Observed: 07/04/2018 Status: F Source: [facility] 11:29 AM SYSTEM REPOSITORY Attestation signed by [...] x8, on gregory), hypothyroidism, fibromyalgia presented to [facility] w/ progressive 6 week hx of abdominal pain. She was first seen at [facility] in [place], [place] 6wks prior to admission for abdominal [...] in the urine. CT abdomen done at [facility] (07/01/18) which showed a complex inflammatory collection/mass in anterior RLQ abscess. Patient was then transferred to [facility] the same day for further management and a second opinion. Patient and then requested transfer to [facility] as they have had family treated here [...] DISCHARGE MEDICATIONS: Dahlia Marino Home Medication Instructions MARLYN:[id number] Printed on:07/05/18 1006 Medication Information adalimumab (HUMIRA) [...] Complexity: follow up within 7-14 calendar days (40550) [] Severe Complexity: follow up within 7 calendar days (19843) FOLLOW UP TESTING, PENDING RESULTS OR REFERRALS [...] W/ AUTODIFF Collected: 07/04/2018 Status: F Source: [facility] 5:08 AM SYSTEM REPOSITORY TYPE CODE TESTS [...] #### HEMDF, BMP3M, MG3, PHOS3, LFT3 #### [facility] [address] [place] [address] BASIC METABOLIC PANEL Collected: 07/04/2018 Status: F Source: [facility] 5:08 AM SYSTEM REPOSITORY TYPE CODE TESTS [...] #### HEMDF, BMP3M, MG3, PHOS3, LFT3 #### [facility] [address] [place] [address] MAGNESIUM Collected: 07/04/2018 Status: F Source: [facility] 5:08 AM SYSTEM REPOSITORY TYPE CODE TESTS RESULT OUT OF RANGE REFERENCE UNITS LAB MG3 1.6-2.3 mg/dL Normal Magnesium 1.8 Performed By: #### HEMDF, BMP3M, MG3, PHOS3, LFT3 #### [facility] [address] [place] [address] PHOSPHORUS Collected: 07/04/2018 Status: F Source: [facility] 5:08 AM SYSTEM REPOSITORY TYPE CODE TESTS RESULT OUT OF RANGE REFERENCE UNITS LAB PHOS3 2.5-4.5 mg/dL Normal Phosphorus 3.8 Performed By: #### HEMDF, BMP3M, MG3, PHOS3, LFT3 #### [facility] [address] [place] [address] HEPATIC FUNCTION Collected: 07/04/2018 Status: F Source: [facility] 5:08 AM SYSTEM REPOSITORY TYPE CODE TESTS [...] #### HEMDF, BMP3M, MG3, PHOS3, LFT3 #### [facility] [address] [place] [phone] HEMOGRAM W/ AUTODIFF Collected: 07/03/2018 Status: F Source: [facility] 2:31 AM SYSTEM REPOSITORY TYPE CODE TESTS [...] By: #### HEMDF, MG3, PHOS3, BMP3M #### [employer] [address] [place] [address] MAGNESIUM Collected: 07/03/2018 Status: F Source: [facility] 2:31 AM SYSTEM REPOSITORY TYPE CODE TESTS RESULT OUT OF RANGE REFERENCE UNITS LAB MG3 1.6-2.3 mg/dL Normal Magnesium 2.1 Performed By: #### HEMDF, MG3, PHOS3, BMP3M #### [facility] [address] [place] [phone] PHOSPHORUS Collected: 07/03/2018 Status: F Source: [facility] 2:31 AM SYSTEM REPOSITORY TYPE CODE TESTS RESULT OUT OF RANGE REFERENCE UNITS LAB PHOS3 2.5-4.5 mg/dL Normal Phosphorus 3.8 Performed By: #### HEMDF, MG3, PHOS3, BMP3M #### [facility] [address] [place] [phone] BASIC METABOLIC PANEL Collected: 07/03/2018 Status: F Source: [facility] 2:31 AM SYSTEM REPOSITORY TYPE CODE TESTS [...] By: #### HEMDF, MG3, PHOS3, BMP3M #### [facility] [address] URINALYSIS,MACRO Collected: 07/03/2018 Status: F Source: [facility] 2:23 AM SYSTEM REPOSITORY TYPE CODE TESTS RESULT OUT OF REFERENCE UNITS RANGE LAB APPUR Clear NA Appearance Cloudy LAB COLUR Lt. Yellow NA Color Yellow LAB USG 1.005-1.030 NA Specific Normal [place],Urine 1.015 LAB UPH 5.0-8.0 NA pH,Urine Normal [...] 250 Performed By: #### UAMAC, UAMIC #### [facility] [address] URINALYSIS,MICROSCOPIC Collected: Status: F Source: [facility] 07/03/2018 2:23 AM HEALTH SYSTEM REPOSITORY TYPE CODE TESTS RESULT OUT OF REFERENCE UNITS RANGE LAB WBCU 0-5 /[HPF] 26 WBC,Urine - 50 LAB RBCU 0-2 /[HPF] 11 RBC,Urine - 25 LAB EPIU 3-5 /[HPF] 0 Epithelial Cells - 2 LAB LILLIAM Negative NA Bacteria Many (51-100) LAB AMPH Negative NA Amorphous Moderate Phosphates (6-50) Performed By: #### UAMAC, UAMIC #### [facility] [address] Observed: 07/03/2018 Status: F Source: [facility] CULTURE URINE 2:23 AM SYSTEM REPOSITORY Order Comment: Specimen Source Comment:Urine, clean catch CULTURE URINE --> Status: F No growth (<1,000 CFU/ml). Performed By: #### C/UR #### [facility] [address] ABDOMEN/PELVIS W/ Observed: 07/02/2018 Status: F Source: [facility] CONTRAST 8:06 AM SYSTEM REPOSITORY Patient Name: DAHLIA MARINO CT Exam Date/Time 07/02/2018 07:47:[address] Abdomen/Pelvis w/ IV Contrast (IV Onl Ordering Physician MD IVIS, MPH, MICHELINE Accession Number [id number] CPT4 Codes 25692 (CT Abdomen/Pelvis w/ IV Contrast (IV Onl), Q9967 (CT ISOVUE 370MG/[id number]) Reason For Exam Crohns flare, known abscess [...] 8:06 URINALYSIS,MACRO Collected: 07/02/2018 Status: F Source: [facility] 1:59 AM SYSTEM REPOSITORY TYPE CODE TESTS RESULT OUT OF REFERENCE UNITS RANGE LAB APPUR Clear NA Appearance Clear LAB COLUR Lt. Yellow NA Color P. Yellow LAB USG 1.005-1.030 NA Specific Normal [place],Urine 1.010 LAB UPH 5.0-8.0 NA pH,Urine Normal [...] 25 Performed By: #### UAMAC, UAMIC #### [facility] [address] [place] [address] URINALYSIS,MICROSCOPIC Collected: Status: F Source: [employer] 07/02/2018 1:59 AM HEALTH SYSTEM REPOSITORY TYPE CODE TESTS RESULT OUT OF REFERENCE UNITS RANGE LAB WBCU 0-5 /[HPF] 11 WBC,Urine - 25 LAB RBCU 0-2 /[HPF] 3 RBC,Urine - 5 LAB EPIU 3-5 /[HPF] 3 Epithelial Cells - 5 LAB LILLIAM Negative NA Bacteria Moderate (6-50) Performed By: #### UAMAC, UAMIC #### [employer] [place] [id number] Observed: 07/02/2018 Status: F Source: [facility] BLOOD 1:45 AM SYSTEM REPOSITORY Order Comment: Specimen Source Comment:Blood CULTURE BLOOD --> Status: F No growth at 5 days. Performed By: #### C/BLD #### [facility] [address] [place] [address] Observed: 07/02/2018 Status: F Source: [facility] BLOOD (TWO) 1:45 AM SYSTEM REPOSITORY Order Comment: Specimen Source Comment:Blood CULTURE BLOOD (Two) --> Status: F No growth at 5 days. Performed By: #### C/BLT #### [place] [address] HEMOGRAM W/ AUTODIFF Collected: 07/02/2018 Status: F Source: [facility] 1:37 AM SYSTEM REPOSITORY TYPE CODE TESTS [...] LACT3, TSH5, CMP3, MG3, FT4M, TROPN #### [facility] [address] [place] [phone] PROTHROMBIN TIME Collected: 07/02/2018 Status: F Source: [facility] 1:37 AM SYSTEM REPOSITORY TYPE CODE TESTS [...] LACT3, TSH5, CMP3, MG3, FT4M, TROPN #### [facility] [address] [place] [phone] LACTIC ACID Collected: 07/02/2018 Status: F Source: [facility] 1:37 AM SYSTEM REPOSITORY TYPE CODE TESTS RESULT OUT OF REFERENCE UNITS RANGE LAB LACT3 0.7-2.0 mmol/L Low Lactic Acid 0.6 Performed By: #### HEMDF, PT, LACT3, TSH5, CMP3, MG3, FT4M, TROPN #### [employer] [facility] [address] [place] [address] THYROID STIM. Collected: 07/02/2018 Status: F Source: [facility] HORMONE 1:37 AM SYSTEM REPOSITORY TYPE CODE TESTS RESULT OUT OF REFERENCE UNITS RANGE LAB TSH5 0.465-4.680 u[IU]/mL Low Thyroid Stim. 0.175 Hormone Performed By: #### HEMDF, PT, LACT3, TSH5, CMP3, MG3, FT4M, TROPN #### [email or web address] [address] [place] [address] COMP METABOLIC PANEL Collected: 07/02/2018 Status: F Source: [facility] 1:37 AM SYSTEM REPOSITORY TYPE CODE TESTS [...] LACT3, TSH5, CMP3, MG3, FT4M, TROPN #### [facility] [address] [place] [address] MAGNESIUM Collected: 07/02/2018 Status: F Source: [facility] 1:37 AM SYSTEM REPOSITORY TYPE CODE TESTS RESULT OUT OF REFERENCE UNITS RANGE LAB MG3 1.6-2.3 mg/dL Low Magnesium 1.5 Performed By: #### HEMDF, PT, LACT3, TSH5, CMP3, MG3, FT4M, TROPN #### [facility] [address] [place] [address] FREE T4 Collected: 07/02/2018 Status: F Source: [facility] 1:37 AM SYSTEM REPOSITORY TYPE CODE TESTS RESULT OUT OF RANGE REFERENCE UNITS LAB FT4M 0.78-2.19 ng/dL Normal Free T4 1.87 Performed By: #### HEMDF, PT, LACT3, TSH5, CMP3, MG3, FT4M, TROPN #### [facility] [address] [place] [address] TROPONIN I Collected: 07/02/2018 Status: F Source: [facility] 1:37 AM SYSTEM REPOSITORY TYPE CODE TESTS RESULT OUT OF RANGE REFERENCE UNITS LAB TROP4 0.000-0.034 ng/mL Normal Troponin I < 0.012 Result Comment: 0.046 - 0.400 = Indeterminate > 0.400 = Consider Myocardial Injury Performed By: #### HEMDF, PT, LACT3, TSH5, CMP3, MG3, FT4M, TROPN #### [place] [address] ED PROVIDER NOTE Observed: 07/02/2018 Status: F Source: [facility] 12:02 AM SYSTEM REPOSITORY Emergency Department Encounter [...] past few weeks, was seen at [facility]. yesterday, CT there showed an intra-abdominal mass [...] otherwise acutely negative except as in the [place]. Past History Past Medical History: Diagnosis Date [...] # 1.6 1.0 - 4.3 10*3/uL Absolute [place] # 1.4 (H) 0.0 - 0.8 10*3/uL [...] eGFR >60.0 >60 mL/min EGFR IF NonAfrican Micronesian >60.0 >60 mL/min Calcium 8.0 (L) 8.4 [...] UA P. Yellow Lt. Yellow NA Specific [place], Urine 1.010 1.005 - 1.030 NA pH, [...] me Rhythm: normal sinus Rate: normal, 83 [place]: normal Ectopy: none Conduction: normal ST Segments: [...] Attempted multiple times to obtain records [facility], only got the CAT scan results as [...] EVERY 4 HOURS PRN Acknowledged MICHELINE LANGSTON 07/02/18 0520 07/02/18 0520 diatrizoate meglumine-sodium (GASTROGRAFIN) [...] dictations but occasionally words are mis-transcribed.) Eloisa Vaughan DO [employer] Eloisa Vaughan DO 07/02/18 0734 ED PROVIDER NOTE Observed: 07/02/2018 Status: F Source: [facility] 12:02 AM SYSTEM REPOSITORY Emergency Department Encounter [facility] EMERGENCY DEPT Patient: Dahlia Marino : 1970 Date of Evaluation: 07/02/2018 ED Provider: BLAIR HOLDEN CNP As the [id number], I performed a medical screening history and [...] per patient and family. They were at [facility] earlier this morning. Per report from family CT was done with oral contrast finding possible abscess below her liver. He was transferred [facility] without their knowledge. Family states they thought she was coming here. He was at [facility] and that concerns about her care because [...] NURSING PROG Observed: 07/01/2018 Status: COMPLETED Source: HELM 11:34 PM [facility] REPOSITORY HNO ID: [id number] Author: Meme (Rn) EZEKIEL Ramsay Service: Emergency [...] this. I personally spoke with Winter Paez DIRECTOR OF BANDS, requested further order to check labs including [...] bleeding. PROGRESS Observed: 07/01/2018 Status: COMPLETED Source: HELM 11:15 PM [facility] REPOSITORY HNO ID: [id number] Author: Jeannine Wolf) JB Womack Service: (none) Author Type: Nurse Practitioner Type: Progress Notes Filed: 07/01/2018 11:51 PM Note Text: CTBS for patient requesting to leave AMA. Nursing mapping supervisor on floor speaking with patient and [...] of testing. Family is taking patient to [facility] ED at this time. Pt is alert and oriented x 3, capable of making decisions. AMA paperwork filled out and signed at bedside. Jeannine Womack [facility] NURSING PROG Observed: 07/01/2018 Status: COMPLETED Source: HELM 9:25 PM CLINIC OTHER CAMPUS REPOSITORY HNO ID: [id number] Author: Ester (Rn) EZEKIEL Kamara Service: (none) [...] AND PELVIS Observed: 07/01/2018 Status: F Source: [facility] WITH CONTRAST 8:57 PM HEALTH SYSTEM REPOSITORY Performed at [facility] APPROVED BY: Zia Maurer MD Exam [...] advised. CONSULT Observed: 07/01/2018 Status: COMPLETED Source: HELM 4:02 PM [facility] OTHER CAMPUS REPOSITORY O ID: [id number] Author: Misty Mcdonald Service: General Surgery Author [...] returned and got worse. Patient presented to [facility] where CT Abd/Pelvis showed a possible [...] CONSULT PROG Observed: 07/01/2018 Status: COMPLETED Source: HELM 3:57 PM CLINIC OTHER CAMPUS REPOSITORY HNO ID: [id number] Author: Kamran Colon Service: Gastroenterology Author Type: [...] ago per patient) who presented to the [facility] for abdominal pain. She stated she [...] she called EMS who transferred her to [facility]. In the ED her abdominal CT revealed possible abscess vs neoplasms so she was transferred to [facility]. She denied melena, hematochezia, hematemesis, and constipation. [...] about 3-4 years ago (no [facility] FUNCTIONAL STATUS: Independent PAST MEDICAL [...] patient 3-4 years ago (no record in [facility]) Assessment AND Plan: Repeat Abdominal [...] patient 3-4 years ago (no record in [facility]) Assessment AND Plan: Need records from [facility] Dr. Loomis in [place]. SIGNATURE: Kamran Colon APRN.CNP PATIENT NAME: Dahlia Marino DATE: July 01, 2018 TIME: 3:57 PM PAGER: NUTRITION Observed: 07/01/2018 Status: COMPLETED Source: HELM 3:47 PM CLINIC OTHER CAMPUS REPOSITORY [facility] ID: [id number] Author: Argentina Zuluaga RD (Ld) Service: Nutrition [...] gm protein per serving and vanilla Boost VHC QD, to provide 530 kcal and 22 [...] nutritional status Reason for Assessment: Consult from [facility] for patient with 28 lbs weight loss in 4 weeks. Per HPI: This is a 47 year old female with PMH of crohns, hypothyroid, wallace, ape, liver sx d/t infection who presents to the [facility] from [facility]. Pt called EMS and had them [...] ENSURE CLEAR MIXED PEREZ Supplement 2: BOOST [facility] Lines and Drains: Peripheral 07/01/18 [...] Admitted) 07/01/18 0700 - 07/02/18 0659 Shift 1865-8530 8521-7289 24 Hour Total 8847-9501 7645-0966 5007-3183 24 Hour Total I N T A [...] July 01, 2018 TIME: 4:25 PM PAGER: [phone] CEA Collected: 07/01/2018 Status: F Source: [facility] 1:55 PM HEALTH SYSTEM REPOSITORY TYPE CODE TESTS RESULT OUT OF RANGE REFERENCE UNITS LAB CEA(LOINC) 0.0-3.0 ng/mL CEA 2.5 Result Comment: The reference range shown is for adult non-smokers. The range for smokers is 0-5.0 Testing performed by Chemiluminescence LOCI. Performed By: #### CEA #### [place] [address] MAGNESIUM BLOOD Collected: 07/01/2018 Status: F Source: [facility] 1:55 PM HEALTH SYSTEM REPOSITORY TYPE CODE TESTS RESULT OUT OF REFERENCE UNITS RANGE LAB MAG(LOINC) 1.6-2.6 mg/dL Magnesium Blood 1.6 Performed By: #### MAG #### [facility] [address] [place] [address] Observed: 07/01/2018 Status: F Source: [facility] BLOOD 12:00 PM HEALTH SYSTEM REPOSITORY Test performed at [facility] No growth Performed By: #### C_BLO #### [facility] [address] [place] [address] HEMOGRAM Collected: 07/01/2018 Status: F Source: [facility] 11:55 AM HEALTH SYSTEM REPOSITORY [...] MPV 9.8 Performed By: #### CBC1 #### [place] [address] LACTIC ACID Collected: 07/01/2018 Status: F Source: [facility] 11:55 AM HEALTH SYSTEM REPOSITORY TYPE CODE TESTS RESULT OUT OF REFERENCE UNITS RANGE LAB LAC(LOINC) 0.4-2.0 mEq/L Lactic Acid 0.4 Performed By: #### LAC #### [facility] [address] [place] [address] PHOSPHORUS BLOOD Collected: 07/01/2018 Status: F Source: [facility] 11:55 AM HEALTH SYSTEM REPOSITORY TYPE CODE TESTS RESULT OUT OF REFERENCE UNITS RANGE LAB PHOS(LOINC 2.5-4.9 mg/dL ) Phosphorus Blood 3.8 Performed By: #### PHOS #### [place] [address] CRP Collected: 07/01/2018 Status: F Source: [facility] 11:55 AM HEALTH SYSTEM REPOSITORY TYPE CODE TESTS RESULT OUT OF RANGE REFERENCE UNITS LAB CRP3(LOINC) 0.00-0.30 mg/dL High CRP 8.04 Performed By: #### CRP3 #### [place] [address] COMPREHENSIVE PANEL Collected: 07/01/2018 Status: F Source: [facility] 11:55 HEALTH SYSTEM REPOSITORY TYPE CODE TESTS RESULT [...] Gap 12 Performed By: #### P14 #### [place] [address] MDRD GFR Collected: 07/01/2018 Status: F Source: [facility] 11:55 AM HEALTH SYSTEM REPOSITORY TYPE CODE TESTS RESULT OUT OF RANGE REFERENCE UNITS LAB GFRFN(LOINC >60mL/min/1.73m ) 2 eGFR >60 Result Comment: If the patient is , multiply the result by 1.210. Performed By: #### GFR #### [facility] [address] [place] [id number] PROTIME Collected: 07/01/2018 Status: F Source: [facility] 11:55 AM HEALTH SYSTEM REPOSITORY TYPE CODE TESTS RESULT OUT OF REFERENCE UNITS RANGE LAB PTI(LOINC) 9.7-13.0 sec Prothrombin Time 11.7 LAB INR(LOINC) 0.90-1.30 INR 1.14 Result Comment: Note: Reference Range Change Vitamin K Antagonist (VKA) Therapeutic Range: INR 2 to 3 (Target INR of 2.5) Note: For patients treated with VKA drugs, such as warfarin, the [employer] 2012 Guideline recommends [...] GH, et al. Chest 2012; 141:7S-47S Rogelio RA, et al. [facility] 2017; 70: 252-289 Performed By: #### PT #### [facility] [address] [place] [id number] ACTIVATED PTT Collected: 07/01/2018 Status: F Source: [facility] 11:55 HEALTH SYSTEM REPOSITORY TYPE CODE TESTS RESULT [...] laboratory APTT reagent in use throughout the [facility]. Performed By: #### APTT #### [place] [address] SED RATE Collected: 07/01/2018 Status: F Source: [facility] 11:55 AM HEALTH SYSTEM REPOSITORY TYPE CODE TESTS RESULT OUT OF RANGE REFERENCE UNITS LAB ESR(LOINC) 0-20 mm/hr High Sed Rate 38 Performed By: #### ESR #### [place] [address] HISTORY PHYSICAL Observed: 07/01/2018 Status: COMPLETED Source: [facility] 11:14 AM CLINIC OTHER CAMPUS REPOSITORY HNO ID: [id number] Author: Meryl Hogan Service: Hospital Medicine Author Type: Nurse Practitioner Type: HANDP Filed: 07/01/2018 11:50 AM Note Text: Attestation signed by Jose Altamirano at 2018 5:50 PM (Updated) I have personally seen and examined the patient. I agree with the [facility]'s note with following addition. Ms Marino, a 47 years old lady who has hx of UC and is on Humira Q week (last dose 2 weeks ago) under care of GI (? Dr Bender in [facility]) and multiple bowel surgeries including bowel resection, has abdominal pain for more than a month initially in lower part now generalized worse with food. Has fever in the last few days. Normal BM (reported diarrhea to [facility]), no nausea. Was treated with flagyl for a week a month ago. Last c scope > 5 years ago and last surgery > 5 years ago. She presented to [facility] where she was noted to have [...] 2 weeks ago), under the care of check embosser ? Dr Bender 4. Hx of multiple [...] sx d/t infection who presents to the [facility] from [facility]. Pt called EMS and had them [...] July 01, 2018 TIME: 11:15 AM PAGER: 0001 CT ABDOMEN/PELVIS W Observed: 07/01/2018 Status: F [facility] 12:42 AM [place] [address] Patient: DAHLIA MARINO Phone#: : [phone] Age: 47 Gender: F Pt. Type: ER Account: [id number] Location: 052 Ordering: DOROTEO TABOR Exam Date: 07/01/2018/0:28 Family Phys: MARLO LANG Charge Code: 579487 Physician: [place] Order #: [id number] DLP Dose#: [id number] PROCEDURE: CT ABDOMEN/PELVIS WITH [...] 47 Gender: F Pt. Type: ER Account: [id number] Location: 052 Ordering: DOROTEO TABOR Exam Date: 07/01/2018/0:28 Family Phys: MARLO LANG Charge Code: 093408 Physician: [place] Order #: [id number] DLP Dose#: [id number] ABDOMINAL WALL: Normal. No [...] 8:50 URINALYSIS Collected: 07/01/2018 Status: F Source: [facility] 12:34 AM [facility] REPOSITORY TYPE CODE TESTS RESULT OUT OF [...] Urobilinog(LOINC) NORMAL: NORMAL Urobilinog NORM LAB Sp [place](LOINC) NORMAL: 1.010-1.030 Sp [place] 1.015 LAB Nitrite(LOINC) NORMAL: NEGATIVE Nitrite NEG LAB Leukocytes(LOINC) NORMAL: NEGATIVE Leukocytes Abnormal 500 LAB Microscopic(LOINC ) Microscopic SEE BELOW Result Comment: MICROSCOPIC LAB Wbc(LOINC) 0-5/hpf Wbc 26-50 LAB Rbc(LOINC) 0-3/hpf Rbc 15-20 LAB Casts(LOINC) Casts NONE LAB Crystals(LOINC) Crystals NONE LAB Amorphous(LOINC) Amorphous NONE LAB Bacteria(LOINC) Bacteria TRACE LAB Epi Cells(INC) Epi Cells NONE LAB Mucous([facility]) Mucous 1+ LAB Yeast([facility]) Yeast NONE Performed By: #### [id number] #### [facility],[address] [place] [id number] Observed: 06/30/2018 Status: F Source: [facility] CULTURE BLOOD 11:25 PM [facility] REPOSITORY CULTURE BLOOD CULTURE BLOOD SET: 2 of 2 24HOUR REPORT NEGATIVE 48HOUR REPORT NEGATIVE 72HOUR REPORT NEGATIVE M I C R O B I O L O G Y R E P O R T FINAL Antimicrobial Susceptibility and Organism Identification Report Specimen Number : [id number] Requested : 06/30/18 Specimen Source : BLOOD Collected : 06/30/18 23:25 [place] [facility] [place] : Emergency Room Received : 06/30/18 23:25 Requesting Physician : christina Patient/Specimen Tests and Comments Specimen Comments FINAL REPORT: No Growth at 5 Days Tech : Source : BLOOD ID # : [id number] FINAL Report Date : / / : Collected : 06/30/18 23:25 07/06/18.1142.BKO. 07/06/[email or web address].COMPLETE Performed By: #### [id number] #### [facility],[address] [place] [address] CBC Collected: 06/30/2018 Status: F Source: [facility] 10:45 PM [facility] REPOSITORY TYPE CODE TESTS RESULT OUT OF [...] x10EE3/U L Neut # High 10.00 LAB [place] #(LOINC) 0.20 - 1.00 x10EE3/U L [place] # High 1.30 LAB EO #(LOINC) 0.00 - 0.50 x10EE3/U L EO # 0.00 LAB Baso #(LOINC) 0.00 - 0.10 x10EE3/U L Baso # 0.10 LAB MANUAL DIFF(INC) MANUAL DIFF N/A LAB MORPHOLOGY(INC ) MORPHOLOGY N/A Result Comment: {CD] Performed By: #### [id number] #### [place] [address] LACTATE Collected: 06/30/2018 Status: F Source: [facility] 10:45 PM [facility] REPOSITORY TYPE CODE TESTS RESULT OUT OF REFERENCE UNITS RANGE LAB LACTATE(MESSI 4.5 - 18.0 mg/dL NC) Low LACTATE 4.3 Performed By: #### [id number] #### [place] [address] CMP WITH EGFR Collected: 06/30/2018 Status: F Source: [facility] 10:45 PM [facility] REPOSITORY TYPE CODE TESTS RESULT OUT OF [...] OF AGE AND OLDER. Performed By: #### [id number] #### [address] [address] LIPASE Collected: 06/30/2018 Status: F Source: [facility] 10:45 PM [facility] REPOSITORY TYPE CODE TESTS RESULT OUT OF REFERENCE UNITS RANGE LAB LIPASE(LOIN 18.0 - 51.0 U/L C) LIPASE 18.0 Performed By: #### [id number] #### [address] [place] [address] TROPONIN Collected: 06/30/2018 Status: F Source: [facility] 10:45 PM [facility] REPOSITORY TYPE CODE TESTS RESULT OUT OF [...] such as heterophile antibodies). Performed By: #### [id number] #### [place] [address] TSH Collected: 06/30/2018 Status: F [facility] PM [facility] REPOSITORY TYPE CODE TESTS RESULT OUT OF RANGE REFERENCE UNITS LAB TSH(LOINC) 0.34 - 5.60 uIU/ml Low TSH 0.17 Performed By: #### [id number] #### [place] [address] Observed: 06/30/2018 Status: F Source: [facility] CULTURE BLOOD 10:45 PM [facility] REPOSITORY CULTURE BLOOD CULTURE BLOOD SET: 1 of 2 24HOUR REPORT NEGATIVE 48HOUR REPORT NEGATIVE 72HOUR REPORT NEGATIVE M I C R O B I O L O G Y R E P O R T FINAL Antimicrobial Susceptibility and Organism Identification Report Specimen Number : [id number] Requested : 06/30/18 Specimen Source : BLOOD Collected : 06/30/18 22:45 [place] [facility] [place] : Emergency Room Received : 06/30/18 22:45 Requesting Physician : christina Patient/Specimen Tests and Comments Specimen Comments FINAL REPORT: No Growth at 5 Days Tech : Source : BLOOD ID # : [id number] FINAL Report Date : / / : Collected : 06/30/18 22:45 07/06/18.1142.UNIQUEO. 07/06/[email or web address].COMPLETE Performed By: #### [id number] #### [facility],[address] [place] [address] EMERGENCY REPORT Observed: 06/30/2018 Status: F Source: [facility] 9:55 PM [facility] EMERGENCY ROOM REPORT NAME ACCOUNT SEX AGE ADMIT DISCHARGE PT MED. RECORD# NUMBER DATE DATE TYPE DAHLIA MARINO [id number] F 47 06/30/18 07/01/18 3 R [id number] ROOM: ER DATE OF : 1970 DICTATING [...] first contacted our surgical service here at [facility], who due to this patient's complicated medical history suggested transfer to [place] in [place]. I then contacted [place], who suggested contacting the [facility] due to her complicated history. I then contacted [facility], who was agreeable with accepting the patient. The patient was monitored in our Emergency Department throughout the night and then transferred in stable condition. Dictated By: Doroteo Tabor DO 07/01/18 07:00 JOB #: [id number] Transcribed By: jen 07/01/18 09:44 Electronically signed by: E-SIGN: Doroteo Tabor D.O. 07/08/18 06:49 Page 2 of 2 DAHLIA MARINO Emergency Room Report EMERGENCY REPORT Observed: 06/30/2018 Status: F Source: [facility] 9:55 PM [facility] EMERGENCY ROOM REPORT NAME ACCOUNT SEX AGE ADMIT DISCHARGE PT MED. RECORD# NUMBER DATE DATE TYPE DAHLIA MARINO [id number] F 47 06/30/18 07/01/18 3 R [id number] ROOM: ER DATE OF : 1970 DICTATING [...] Lore Mujica DO 07/01/18 08:22 JOB #: [id number] Transcribed By: jen 07/01/18 10:00 Electronically signed by: E-Sign: LORE MUJICA MD 07/12/18 12:00 Page 1 of 1 DAHLIA MARINO Emergency Room Report EMERGENCY DEPARTMENT Observed: 05/11/2018 Status: F Source: [place] [facility] 4:14 PM [facility] [address] HEALTH INFORMATION MANAGEMENT EMERGENCY DEPARTMENT REPORT Patient: NEDKATIA MCCALL D.O. [id number] F Status: [facility] ER ED Date of Service: 05/08/18 CHIEF COMPLAINT A 47-year-old female. Chief complaint: Vaginal problem. HISTORY OF PRESENT ILLNESS The patient says she has had a recurrent yeast infection. She has had a discolored discharge. She has had a hysterectomy. 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 No other complaints. No abdominal pain, just [...] I am going to refer her to [facility] for followup. <Electronically signed by KATIA TAMEZ D.O.> 05/12/18 0538 KATIA TAMEZ D.O. cc: KATIA TAMEZ D.O. << Signature on File>> Reported By: KATIA TAMEZ D.O. Signed By: KATIA TAMEZ D.O. Tests performed at: [address] [address] ED PROV NOTE Observed: 05/11/2018 Status: COMPLETED Source: [facility] 4:14 PM [facility] REPOSITORY O ID: [id number] Author: Katia Tamez Service: (none) Author Type: Physician Type: ED Provider Notes Filed: 06/23/2018 9:00 PM Note Text: [place] [address] HEALTH INFORMATION MANAGEMENT EMERGENCY DEPARTMENT REPORT Patient: DAHLIA MARINO KATIA TAMEZ D.O. [id number] F Status: [facility] ER ED Date of Service: 05/08/18 CHIEF COMPLAINT A 47-year-old female. Chief complaint: Vaginal problem. HISTORY OF PRESENT ILLNESS The patient says she has had a recurrent yeast infection. She has had a discolored discharge. She has had a hysterectomy. 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 No other complaints. No abdominal pain, just [...] I am going to refer her to [facility] for followup. <Electronically signed by KATIA TAMEZ D.O.> 05/12/18 0538 KATIA TAMEZ D.O. cc: KATIA TAMEZ D.O. << Signature on File>> Reported By: KATIA TAMEZ D.O. Signed By: KATIA TAMEZ D.O. Tests performed at: [address] [address] Observed: 05/08/2018 Status: F Source: [facility] WET PREP 3:09 AM HOSPITAL REPOSITORY WET PREP FEW EPITHELIAL CELLS MANY WBC'S FEW RBC'S NEGATIVE FOR YEAST NEGATIVE FOR TRICHOMONAS Performed By: #### M100.0300 #### [facility] [address] [place] [address] EMERGENCY REPORT Observed: 01/09/2018 Status: F Source: [facility] 7:13 PM [facility] EMERGENCY ROOM REPORT NAME ACCOUNT SEX AGE ADMIT DISCHARGE PT MED. RECORD# NUMBER DATE DATE TYPE DAHLIA MARINO [id number] F 47 12/28/17 12/28/17 3 R [id number] ROOM: ER DATE OF : 1970 DICTATING [...] the coronary arteries by Dr. Haque in [place]. She states that she has had an [...] sinus mechanism without an evidence of acute WI. Rate was 93 and this was done [...] the care. Dictated By: Mor Douglass DO 12/28/17 06:44 JOB #: [id number] Transcribed By: sp 12/29/17 05:54 Electronically signed by: E-SIGN MOR DOUGLASS DO 01/09/18 19:10 Page 2 of 2 DAHLIA MARINO Emergency Room Report CBC Collected: 12/28/2017 Status: F Source: [facility] 4:10 AM [facility] REPOSITORY TYPE CODE TESTS RESULT OUT OF [...] x10EE3/U L Neut # High 10.70 LAB [place] #(LOINC) 0.20 - 1.00 x10EE3/U L [place] # 0.50 LAB EO #(LOINC) 0.00 - 0.50 x10EE3/U L EO # 0.10 LAB Baso #(LOINC) 0.00 - 0.10 x10EE3/U L Baso # 0.00 LAB MANUAL DIFF(LOINC) MANUAL DIFF N/A LAB MORPHOLOGY(INC ) MORPHOLOGY N/A Result Comment: {CD] Performed By: #### [id number] #### [facility],[address] [place] [address] CMP WITH EGFR Collected: 12/28/2017 Status: F Source: [facility] 4:10 AM [facility] REPOSITORY TYPE CODE TESTS RESULT OUT OF [...] OF AGE AND OLDER. Performed By: #### [id number] #### [place] [address] LIPASE Collected: 12/28/2017 Status: F Source: [facility] 4:10 [facility] REPOSITORY TYPE CODE TESTS RESULT OUT OF REFERENCE UNITS RANGE LAB LIPASE(LOIN 18.0 - 51.0 U/L C) LIPASE 25.0 Performed By: #### [id number] #### [place] [address] TROPONIN Collected: 12/28/2017 Status: F Source: [facility] 4:[address] [place] [address] REPOSITORY TYPE CODE TESTS RESULT OUT OF [...] such as heterophile antibodies). Performed By: #### [id number] #### [place] [id number] ALLERGIES ALLERGIES DATE TYPE / NAME / CODE REACTION SEVERITY SOURCE CODE 08/04/2018 Drug doxycycline/Q342802 Other Unknown Samara Allergy/41 748(RXNORM) [facility] 4188624([facility]) Repository 08/04/2018 Drug erythromycin Hives Unknown Roe Allergy/41 base/[id number](RXN Community 2231838(SN OR) [facility] Repository 08/04/2018 Drug metronidazole/F0060 Other Unknown Roe Allergy/41 74099(RXNORM) [facility] 1701160([facility]) Repository 07/01/2018 DRUG DOXYCYCLINE SHORTNESS OF High [place] INGREDI/41 Clinic Other 3143496([facility] OME CT) Repository 07/01/2018 DRUG METRONIDAZOLE [facility]OLERANCE [facility] 9046918[facility]) Repository 07/01/2018 DRUG AZITHROMYCIN SHORTNESS OF [facility] 6201393([facility] OME CT) Repository NG/2558592 DOXYCYCLINE [facility] 06([facility]) Repository NG/3845324 METRONIDAZOLE [facility] 06([facility]) Repository NG/4323636 AZITHROMYCIN [facility] 06([facility]OM[facility]) Repository Drug DOXYCYCLINE/6032175 Moderate Kashif Pomerene Allergy/41 0(RXNORM) (Sever[facility] 5183662(SN Modifier) [facility] OMED CT) (Qualifier Repository Value) Drug FLAGYL/60601935(RXN Moderate Kashif Pomerene Allergy/41 ORM) ([facility] 8374456(SN Modifier) [facility] OMED CT) (Qualifier Repository Value) Drug ERYTHROMYCIN/568512 Moderate Kashif Pomerene Allergy/41 26(RXNORM) ([facility]ever[facility] 1321520(SN Modifier) [facility] OMED CT) (Qualifier Repository Value) ENCOUNTERS ENCOUNTERS ADMIT/DISCHARGE ACCOUNT NUMBER ADMITTING ENCOUNTER LOCATION SOURCE CLASS 08/10/2018 [id number] [facility] ding:MEDOUTP Repository 08/09/2018 [id number] [facility] ding:MEDOUTP Repository 08/08/2018 [id number] [facility] ding:MEDOUTP Repository 08/07/2018/08/07/20 [id number] Ambulatory Samara Roe 18 [facility] ding:[facility]P Repository 08/06/2018/08/06/20 [id number] Ambulatory Roe Roe 18 [facility] ding:MEDOUTP Repository 08/05/2018 [id number] Ambulatory Roe Samara [facility] ding:MEDOUTP Repository 08/04/2018 [id number] Ambulatory Samara Roe [facility] ding:MEDOUTP Repository 08/04/2018 [id number] [facility] Repository 08/04/2018 [id number] Ambulatory [facility] Repository 08/03/2018 [id number] Ambulatory Samara Roe [facility] ding:MEDOUTP Repository 08/02/2018 [id number] Ambulatory Roe Roe [facility] ding:MEDOUTP Repository 08/01/2018 [id number] Ambulatory Samara Samara [facility] ding:MEDOUTP Repository 07/31/2018/07/31/20 [id number] Ambulatory Samara Samara [address] [place] [address] [facility] ding:MEDOUTP Repository 07/30/2018/07/30/20 [id number] Ambulatory Roe Roe [address] [place] [address] [facility] ding:MEDOUTP Repository Room: [facility] 07/29/2018 [id number] Ambulatory Roe Samara [facility] ding:MEDOUTP Repository 07/29/2018 [id number] Ambulatory [facility] Repository 07/28/2018 [id number] Ambulatory Roe Samara [facility] ding:MEDOUTP Repository 07/27/2018 [id number] Ambulatory Samara Samara [facility] ding:MEDOUTP Repository 07/26/2018 [id number] Ambulatory Samara Roe [facility] ding:MEDOUTP Repository 07/26/2018 [id number] [facility]ulatory [facility] Repository 07/25/2018 [id number] Ambulatory Samara Samara [facility] ding:MEDOUTP Repository 07/24/2018/07/24/20 [id number] Ambulatory [address] ding:MEDOUTP Repository 07/23/2018/07/23/20 [id number] Ambulatory [address] ding:MEDOUTP Repository 07/22/2018 [id number] Ambulatory [facility] ding:MEDOUTP Repository 07/21/2018 [id number] Ambulatory [facility] ding:MEDOUTP Repository 07/17/2018 [id number] Inpatient BuildinA [facility] Encounter 4NRoom: System [id number]: Repository [id number] 07/02/2018 [id number] Inpatient [facility]in[facility] Encounter 6WRoom: System [id number]: Repository [id number] 07/01/2018/07/02/20 [id number] TETY[place], Inpatient [place] 18 [address] Encounter Clinic Other [place] Repository 07/01/2018/07/02/20 [id number] TETYUK, Inpatient AKRON [facility] 18 [address] Encounter [facility] MEDICAL Repository CENTERBuildi nRoom: 7121Bed: 06/30/2018/07/01/20 [id number] CHRISTINA, Emergency [address]in[address] [place] [address] 18 DOROTEO D Room: ERBed: [facility] Repository 05/08/2018/05/08/20 [id number] Emergency UNIBuilding: [address] Repository 12/28/2017/12/29/19 [id number] RAFAT, Emergency [address]in[address] [place] [address] 18 MOR DO Room: ERBed: [facility] Repository PAYERS PAYERS ENCOUNTER GUARANTOR 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 SOURCE 08/10/2018 DAHLIA Hathaway Primary Insurance:SELF [facility]K [facility] Number[facility] Effective [place] Date:2018-07-26 Repository [address]Ahj: (hp) 08/09/2018 DAHLIA Hathaway Primary Insurance:SELF NOT [facility]IV[facility]UNK [facility] Number: Effective [place] Date:2018-07-26 Repository 8[address]Arz: () 08/08/2018 DAHLIA R Primary Insurance:SELF NOT GIVENUNK Roe [id number] PAY [facility] Number: Effective [facility] Date:2018-07-26 Repository [address]Nnn: () 08/07/2018 DAHLIA R Primary Insurance:SELF NOT GIVENUNK Samara [id number] [facility]Y [facility] Number: Effective [facility] Date:2018-07-26 Repository 09679Yxc: (HP) 08/06/2018 DAHLIA R Primary Insurance:SELF NOT GIVENUNK Samara [id number] [facility]Y [facility] Number: Effective [facility] Date:2018-07-26 Repository [address]Gsn: () 08/05/2018 DAHLIA R Primary Insurance:SELF NOT GIVENUNK Roe [id number] PAY [facility] Number: Effective [facility] Date:2018-07-26 Repository [address]Eri: () 08/04/2018 DAHLIA R Primary Insurance:SELF NOT GIVENUNK Samara [id number] PAY [facility] Number: Effective [facility] Date:2018-07-26 Repository [address]Roe: () 08/04/2018 Dahlia Primary Dahlia BarkesDOB[facility] BarkesDOB: Insurance:MedicarePoli [id number] System cy Number: Effective Repository [place] Date: [place], [place] [address]Xjk: () 08/04/2018 Secondary Dahlia BarkesDOB: [facility] Insurance:Self [id number] System PayPolicy Number: Repository Effective Date: 08/04/2018 Dahlia Primary Dahlia BarkesDOB: [facility] BarkesDOB: Insurance:MedicarePoli [id number] System cy Number: Effective Repository [place] Date: [place], [place] [address]Pdm: (HP) 08/04/2018 Secondary Dahlia BarkesDOB: [facility] Insurance:MedicarePoli [id number] System cy Number: Effective Repository Date: 08/03/2018 DAHLIA R Primary Insurance:SELF NOT GIVENUNK Samara [id number] PAY [facility] Number: Effective [place] Date:2018-07-26 Repository [address]Mkn: (HP) 08/02/2018 DAHLIA R Primary Insurance:SELF NOT GIVENUNK Roe [id number] [facility]Y [facility] Number: Effective [place] Date:2018-07-26 Repository [address]Owd: (HP) 08/01/2018 DAHLIA R Primary DAHLIA R Samara [id number] Insurance:MEDICARE A BARKESDOB: [facility] Number: [id number], [place] [id number] Repository [address]Slg: 330) Date:2018-07-26 [phone] () 08/01/2018 Secondary NOT GIVENUNK Roe Insurance:SELF PAY [facility] Number: Effective Repository Date:2018-07-26 07/31/2018 DAHLIA R Primary DAHLIA R Samara [id number] Insurance:MEDICARE A BARKESDOB: [facility] Number: [id number], [place] [id number] Repository [address]Vjv: (330) Date:2018-07-26 [phone] (HP) 07/31/2018 Secondary NOT GIVENUNK Roe Insurance:SELF PAY [facility] Number: Effective Repository Date:2018-07-26 07/30/2018 DAHLIA R Primary DAHLIA R Roe [id number] Insurance:MEDICARE A BARKESDOB: [facility] Number: [id number], [place] [id number] Repository [address]Ttr: (330) Date:2018-07-26 [phone] () 07/30/2018 Secondary NOT GIVENUNK Roe Insurance:SELF PAY [facility] Number: Effective Repository Date:2018-07-26 07/29/2018 DAHLIA R Primary DAHLIA R Roe [id number] Insurance:MEDICARE A BARKESDOB: [facility] Number: [id number], [place] [id number] Repository [address]Abt: (330) Date:2018-07-26 [phone] () 07/29/2018 Secondary NOT GIVENUNK Roe Insurance:SELF PAY [facility] Number: Effective Repository Date:2018-07-26 07/29/2018 Dahlia Primary Dahlia BarkesDOB: [facility] BarkesDOB: Insurance:MedicarePoli [id number] System cy Number: Effective [facility] Date: [place], [place] [address]Sce: (HP) 07/28/2018 DAHLIA R Primary DAHLIA R Samara [id number] Insurance:MEDICARE A BARKESDOB: [facility] Number: [id number], [place] [id number] Repository [address]Wvu: (330) Date:2018-07-26 [phone] () 07/28/2018 Secondary NOT GIVENUNK Samara Insurance:SELF PAY [facility] Number: Effective Repository Date:2018-07-26 07/27/2018 DAHLIA R Primary Insurance:SELF NOT GIVENUNK Samara [id number] PAY [facility] Number: Effective [place] Date:2018-07-26 Repository [address]Efh: (HP) 07/26/2018 DAHLIA R Primary DAHLIA R Roe [id number] Insurance:MEDICARE A BARKESDOB: [facility] Number: [id number], [place] [id number] Repository [address]Jml: (330) Date:2018-07-26 [phone] (HP) 07/26/2018 Secondary NOT GIVENUNK Samara Insurance:SELF PAY [facility] Number: Effective Repository Date:2018-07-26 07/26/2018 Dahlia Primary Dahlia BarkesDOB: [facility] BarkesDOB: Insurance:MedicarePoli [id number] System cy Number: Effective [facility] Date: [place], [place] [address]Ora: (HP) 07/26/2018 Secondary Dahlia BarkesDOB: [facility] Insurance:Self [id number] System PayPolicy Number: Repository Effective Date: 07/25/2018 DAHLIA R Primary DAHLIA R Samara [id number] Insurance:MEDICARE A BARKESDOB: [facility] Number: [id number] [place] [id number] Repository [address]Dvy: (474) Date:2018-07-20 [phone] (HP) 07/25/2018 Secondary NOT GIVENUNK Roe Insurance:SELF PAY [facility] Number: Effective Repository Date:2018-07-20 07/24/2018 DAHLIA R Primary DAHLIA R Roe [id number] Insurance:MEDICARE A BARKESDOB: [facility] Number: [id number] [place], [place] [id number] Repository [address]Him: (676) Date:2018-07-20 [phone] (HP) 07/24/2018 Secondary NOT GIVENUNK Samara Insurance:SELF PAY [facility] Number: Effective Repository Date:2018-07-20 07/23/2018 DAHLIA R Primary Insurance:SELF NOT GIVENUNK Roe [id number] PAY [facility] Number: Effective [place] Date:2018-07-20 Repository [address]Sip: (HP) 07/22/2018 DAHLIA R Primary Insurance:SELF NOT GIVENUNK Roe [id number] PAY [facility] Number: Effective [place] Date:2018-07-20 Repository [address]Frj: (HP) 07/21/2018 DAHLIA R Primary Insurance:SELF NOT GIVENUNK Roe [id number] PAY [facility] Number: Effective [place] Date:2018-07-20 Repository [address]Ffz: () 07/17/2018 Dahlia Primary Dahlia BarkesDOB: [facility] BarkesDOB: [facility] [id number] System cy Number: Effective Repository [place] Date: [place] [address]Jsu: (HP) 07/02/2018 Dahlia Primary Dahlia BarkesDOB: [facility] BarkesDOB: Insurance:MedicarePol [id number] System cy Number: Effective Repository [place] Date[facility] [place] [address]Xlc: () 07/02/2018 Secondary Dahlia BarkesDOB: [facility] Insurance:Self [id number] System PayPolicy Number: Repository Effective Date: 07/01/2018 DAHLIA R Primary [facility] R [facility]:MED[facility]ARE BARKESDOB: Health System APolicy Number: [id number] Repository XEN[place] [id number] [facility], [place] Date: [address]Bcn: () 06/30/2018 DAHLIA R Primary DAHLIA R Kashif Keita [facility]: Insurance:MEDICARE BARKESDOB: [facility] [id number] Number: [place] Repository [place], [place] [id number] [place], [place] [id number]: Date:Plan Name: [id number] () 05/08/2018 DAHLIA R Primary DAHLIA R [facility] [id number] Insurance:[facility]ICARE [facility]UNK [facility] [place] DIS[place] Repository [facility] [place] [place] Number: [address]Akr: 330 [id number] [phone] (HP) Date: 12/28/2017 DAHLIA R Primary DAHLIA R Kashif Mclaughlinne BARKESDOB: Insurance:[facility] OUTPATIENTPolicy [id number] [facility] Number: [place], [place] [id number] [place], [place] [id number]: Date:Plan Name: [id number] (LC)
== END 2018-07-24 15:05 | disposition home or self-care (01) ==
LOC: MEDOUTP 13:41 → MS2 13:43
PROVIDERS: Referring Provider Internal Medicine Infectious Disease; Visit Provider Internal Medicine Infectious Disease
DX: K65.1 Peritoneal abscess (principal)
CPT/HCPCS: 96365; J7050

== ENCOUNTER → 2018-07-25 13:28 | Outpatient (CLI) | payer MEDICARE, SELFPAY ==
[2018-07-24 14:29] VITALS: BMI 24.0
[2018-07-25 14:19] VITALS: BP 141/82; PULSE 84; RESP 16; TEMP 36.8; BMI 24.0
== END ==
LOC: MEDOUTP 13:31
PROVIDERS: Referring Provider Internal Medicine Infectious Disease; Visit Provider Internal Medicine Infectious Disease
DX: K65.1 Peritoneal abscess (principal)
CPT/HCPCS: 96365; J7050; A4216

== ENCOUNTER → 2018-07-26 13:38 | Outpatient (CLI) | payer MEDICARE, SELFPAY ==
[2018-07-25 14:19] VITALS: BMI 24.0
[2018-07-26 13:51] VITALS: BP 113/68; PULSE 78; RESP 16; TEMP 36.8; O2SAT 97; BMI 24.3
== END ==
PROVIDERS: Visit Provider Internal Medicine Infectious Disease
DX: K65.1 Peritoneal abscess (principal)
CPT/HCPCS: 96365; J7050; A4216

== ENCOUNTER → 2018-07-27 13:48 | Outpatient (CLI) | payer SELFPAY ==
[2018-07-26 13:51] VITALS: BMI 24.3
[2018-07-27 14:07] VITALS: BP 118/70; PULSE 82; RESP 16; TEMP 36.3; O2SAT 98; BMI 24.3
[2018-07-27 14:24] LABS: Absolute Lymphocyte Count 1.89 X10^3/ul (0.83-4.51); Absolute Neutrophil Count 5.3 X10^3/uL (2.0-7.7); Basophil# 0.03 X10^3/uL; Basophil% 0.4 % (0-1); Eosinophil# 0.15 X10^3/uL; Eosinophils% 1.9 % (0-5); Hematocrit 30.4 % (37-47); Hemoglobin 9.7 g/dl (12.0-15.0); Lymphocyte # 1.89 X10^3/ul (4.0); Lymphocyte % 23.4 % (19-41); Mean Corp Hgb Conc 31.9 g/gl (32-36); Mean Corpuscular Hgb 30.6 pg (27.0-32.0); Mean Corpuscular Volume 95.9 fL (81-99); Mean Platelet Vol. 8.2 fl (6.2-12.0); Monocyte# 0.69 X10^3/uL; Monocyte% 8.6 % (0-10); Neutrophil # 5.29 X10^3/uL (2.7-7.7); Neutrophil % 65.6 % (47-70); Platelet Count 381 K/mm3 (150-450); RBC Distribution Width CV 13.1 % (11.6-14.6); RBC Distribution Width SD 46.2 fl (35.1-43.9); Red Blood Count 3.17 M/mm3 (4.2-5.4); White Blood Count 8.1 K/mm3 (4.4-11.0)
[2018-07-27 14:25] LABS: POSITIVE COUNT NO; POSITIVE DIFFERENTIAL NO; POSITIVE MORPHOLOGY NO
[2018-07-27 14:42] LABS: ALB/GLOB Ratio 0.6 RATIO (0.9-2.4); AST(SGOT) 10 U/L (15-37); Alanine Aminotransfer ALT/SGPT 11 U/L (13-56); Albumin, Serum 2.8 g/dL (3.2-5.0); Alkaline Phosphatase 79 U/L (45-117); Anion Gap 7 (5-15); BUN 5 mg/dL (7-18); BUN/Creat Ratio 9.9 RATIO (10-20); Calcium,Total 8.4 mg/dL (8.5-10.1); Chloride 108 mmol/L (98-107); EST Glomerular Filtration Rate 138 mL/min (>60); Est Glom Filt Rate - Afr Amer 167 mL/min (>60); Estimated Creatinine Clearance 117.53 ml/min; Globulin 4.5 g/dL (2.2-4.2); Glucose 83 mg/dL (74-106); Potassium 2.9 mmol/L (3.5-5.1); Protein, Total 7.3 g/dL (6.4-8.2); Sodium Level 144 mmol/L (136-145)
== END ==
LOC: MEDOUTP 13:48
PROVIDERS: Visit Provider Internal Medicine Infectious Disease
DX: K65.1 Peritoneal abscess (principal)
CPT/HCPCS: 96365; 36592; 80053; 85025; J7050; A4216

== ENCOUNTER → 2018-07-28 13:46 | Outpatient (CLI) | payer MEDICARE, SELFPAY ==
[2018-07-26 13:51] VITALS: BMI 24.3
[2018-07-27 14:07] VITALS: BMI 24.3
[2018-07-28 13:53] VITALS: BP 133/66; PULSE 89; RESP 15; TEMP 36.6; BMI 24.3
== END ==
LOC: MEDOUTP 13:46
PROVIDERS: Referring Provider Internal Medicine Infectious Disease; Visit Provider Internal Medicine Infectious Disease
DX: K65.1 Peritoneal abscess (principal)
CPT/HCPCS: 96365; J7050; A4216

== ENCOUNTER → 2018-07-29 13:43 | Outpatient (CLI) | payer MEDICARE, SELFPAY ==
[2018-07-26 13:51] VITALS: BMI 24.3
[2018-07-28 13:53] VITALS: BMI 24.3
[2018-07-29 14:00] VITALS: BP 130/66; PULSE 82; RESP 16; TEMP 37.3; O2SAT 100; BMI 24.3
== END ==
LOC: MEDOUTP 13:44
PROVIDERS: Referring Provider Internal Medicine Infectious Disease; Visit Provider Internal Medicine Infectious Disease
DX: K65.1 Peritoneal abscess (principal)
CPT/HCPCS: 96365; J7050; A4216

== ENCOUNTER 2018-07-30 14:08 | Outpatient (CLI) | payer MEDICARE, SELFPAY ==
[2018-07-26 13:51] VITALS: BMI 24.3
[2018-07-29 14:00] VITALS: BMI 24.3
[2018-07-30 14:10] VITALS: BP 132/65; PULSE 89; RESP 16; TEMP 36.9; O2SAT 97; BMI 24.3
[2018-07-30] MEDS: 0.9% NaCl PICC Flush IV ×2 (14:25→14:26)
== END 2018-07-30 15:30 | disposition home or self-care (01) ==
LOC: MEDOUTP 14:09 → PCU 14:10
PROVIDERS: Referring Provider Internal Medicine Infectious Disease; Visit Provider Internal Medicine Infectious Disease
DX: K65.1 Peritoneal abscess (principal)
CPT/HCPCS: 96365; A4216

== ENCOUNTER 2018-07-31 14:02 | Outpatient (CLI) | payer MEDICARE, SELFPAY ==
[2018-07-26 13:51] VITALS: BMI 24.3
[2018-07-30 14:10] VITALS: BMI 24.3
[2018-07-31] MEDS: 0.9% NaCl PICC Flush IV (14:47)
[2018-07-31 14:48] VITALS: BP 109/61; PULSE 70; RESP 16; TEMP 37.4; O2SAT 97; BMI 24.3
== END 2018-07-31 15:45 | disposition home or self-care (01) ==
LOC: MEDOUTP 14:04 → PCU 14:11
PROVIDERS: Referring Provider Internal Medicine Infectious Disease; Visit Provider Internal Medicine Infectious Disease
DX: K65.1 Peritoneal abscess (principal)
CPT/HCPCS: 96365; J7050; A4216

== ENCOUNTER → 2018-08-01 13:43 | Outpatient (CLI) | payer MEDICARE, SELFPAY ==
[2018-07-26 13:51] VITALS: BMI 24.3
[2018-07-31 14:48] VITALS: BMI 24.3
[2018-08-01 13:56] VITALS: BP 125/64; PULSE 86; RESP 15; TEMP 37.1; O2SAT 98; BMI 24.3
== END ==
LOC: MEDOUTP 13:45
PROVIDERS: Referring Provider Internal Medicine Infectious Disease; Visit Provider Internal Medicine Infectious Disease
DX: K65.1 Peritoneal abscess (principal)
CPT/HCPCS: 96365; J7050; A4216

== ENCOUNTER → 2018-08-02 13:39 | Outpatient (CLI) | payer SELFPAY ==
[2018-07-26 13:51] VITALS: BMI 24.3
[2018-08-01 13:56] VITALS: BMI 24.3
[2018-08-02 14:16] VITALS: BP 130/73; PULSE 78; RESP 16; TEMP 37; O2SAT 99; BMI 24.3
--- OUTSIDE RECORDS SUMMARY | 2018-09-18 18:17 | XMS RPT_ITS ---
:1970 Author Organization OHIP Support Name Relationship Address Phone NILDA MARINOT Unavailable [address] [place] [address] + [place] [address] BROWN, DINAH Unavailable Unavailable + D Unavailable Unavailable Unavailable BARKES, MARS Unavailable [address] [facility] + [place] [address] BROWN, DINAH Unavailable Unavailable + D Unavailable Unavailable Unavailable Barkes, Mars Unavailable Unavailable + Brown, Dinah Unavailable Unavailable + BARKES, MARS Unavailable [address] + [place] [address] BROWN, DINAH Unavailable Unavailable + D Unavailable Unavailable Unavailable BARKES, MARS Unavailable [address] + [place] [address] BROWN, DINAH Unavailable Unavailable + D Unavailable Unavailable Unavailable BARKES, MARS Unavailable [address] + [place] [address] BROWN, DINAH Unavailable Unavailable + D Unavailable Unavailable Unavailable BARKES, MARS Unavailable [address] + [place] [address] BROWN, DINAH Unavailable Unavailable + D Unavailable Unavailable Unavailable Barkes, Mars Unavailable Unavailable + Brown, Dinah Unavailable Unavailable + Barkes, Mars Unavailable Unavailable + Brown, Dinah Unavailable Unavailable + BARKES, MARS Unavailable [address] + [place] [address] BROWN, DINAH Unavailable Unavailable + D Unavailable Unavailable Unavailable BARKES, MARS Unavailable [address] + [place] [address] BROWN, DINAH Unavailable Unavailable + D Unavailable Unavailable Unavailable Barkes, Mars Unavailable Unavailable + Brown, Dinah Unavailable Unavailable + BARKES, MARS Unavailable [address] + [place] [address] BROWN, DINAH Unavailable Unavailable + D Unavailable Unavailable Unavailable BARKES, MARS Unavailable [address] + [place] [address] BROWN, DINAH Unavailable Unavailable + D Unavailable Unavailable Unavailable BARKES, MARS Unavailable [address] + [place] [address] BROWN, DINAH Unavailable Unavailable + D Unavailable Unavailable Unavailable BARKES, MARS Unavailable [address] + [place] [address] BROWN, DINAH Unavailable Unavailable + D Unavailable Unavailable Unavailable BARKES, MARS Unavailable [address] + [place] [address] BROWN, DINAH Unavailable Unavailable + D Unavailable Unavailable Unavailable Barkes, Mars Unavailable Unavailable + Brown, Dinah Unavailable Unavailable + BARKES, MARS Unavailable [address] + [place] [address] BROWN, DINAH Unavailable Unavailable + D Unavailable Unavailable Unavailable BARKES, MARS Unavailable [address] + [place] [address] BROWN, DINAH Unavailable Unavailable + D Unavailable Unavailable Unavailable BARKES, MARS Unavailable [address] + [place] [address] BROWN, DINAH Unavailable Unavailable + D Unavailable Unavailable Unavailable BARKES, MARS Unavailable [address] + [place] [address] BROWN, DINAH Unavailable Unavailable + D Unavailable Unavailable Unavailable BARKES, MARS Unavailable [address] + [place] [address] BROWN, DINAH Unavailable Unavailable + D Unavailable Unavailable Unavailable BARKES, MARS Unavailable [address] + [place] [address] BROWN, DINAH Unavailable Unavailable + D Unavailable Unavailable Unavailable BARKES, MARS Unavailable [address] + [place] [address] BROWN, DINAH Unavailable Unavailable + D Unavailable Unavailable Unavailable BARKES, MARS Unavailable [address] + [place] [address] BROWN, DINAH Unavailable Unavailable + D Unavailable Unavailable Unavailable BARKES, MARS Unavailable [address] + [place] [address] BROWN, DINAH Unavailable Unavailable + D Unavailable Unavailable Unavailable BARKES, MARS Unavailable [address] + [place] [address] BROWN, DINAH Unavailable Unavailable + D Unavailable Unavailable Unavailable BARKES, MARS Unavailable [address] + [place] [address] BROWN, DINAH Unavailable Unavailable + D Unavailable Unavailable Unavailable BARKES, MARS Unavailable [address] + [place] [address] BROWN, DINAH Unavailable Unavailable + D Unavailable Unavailable Unavailable BARKES, MARS Unavailable [address] + [place] [address] BROWN, DINAH Unavailable Unavailable + D Unavailable Unavailable Unavailable BARKES, MARS Unavailable [address] + [place] [address] BROWN, DINAH Unavailable Unavailable + D Unavailable Unavailable Unavailable BARKES, MARS Unavailable [address] + [place] [address] BROWN, DINAH Unavailable Unavailable + D Unavailable Unavailable Unavailable BARKES, MARS Unavailable [address] + [place] [address] BROWN, DINAH Unavailable Unavailable + D Unavailable Unavailable Unavailable BARKES, MARS Unavailable [address] + [place] [address] BROWN, DINAH Unavailable Unavailable + D Unavailable Unavailable Unavailable BARKES, MARS Unavailable [address] + [place] [address] BROWN, DINAH Unavailable Unavailable + D Unavailable Unavailable Unavailable BARKES, MARS Unavailable [address] + [place] [address] BROWN, DINAH Unavailable Unavailable + D Unavailable Unavailable Unavailable BARKES, MARS Unavailable [address] + [place] [address] BROWN, DINAH Unavailable Unavailable + D Unavailable Unavailable Unavailable BARKES, MARS Unavailable [address] + [place] [address] BROWN, DINAH Unavailable Unavailable + D Unavailable Unavailable Unavailable Barkes, Mars Unavailable Unavailable + Brown, Dinah Unavailable Unavailable + Barkes, Mars Unavailable Unavailable + Brown, Dinah Unavailable Unavailable + BARKES, MARS Unavailable [address] + [place] [address] BROWN, DINAH Unavailable Unavailable + D Unavailable Unavailable Unavailable BARKES, MARS Unavailable [address] + [place] [address] BROWN, DINAH Unavailable Unavailable + D Unavailable Unavailable Unavailable BARKES, MARS Unavailable [address] + [place] [address] BROWN, DINAH Unavailable Unavailable + D Unavailable Unavailable Unavailable BARKES, MARS Unavailable [address] + [place] [address] BROWN, DINAH Unavailable Unavailable + D Unavailable Unavailable Unavailable BARKES, MARS Unavailable [address] + [place] [address] BROWN, DINAH Unavailable Unavailable + D Unavailable Unavailable Unavailable BARKES, MARS Unavailable [address] + [place] [address] BROWN, DINAH Unavailable Unavailable + D Unavailable Unavailable Unavailable Barkes, Mars Unavailable Unavailable + Brown, Dinah Unavailable Unavailable + BARKES, MARS Unavailable [address] + [place] [address] BROWN, DINAH Unavailable Unavailable + D Unavailable Unavailable Unavailable BARKES, MARS Unavailable [address] + [place] [address] BROWN, DINAH Unavailable Unavailable + D Unavailable Unavailable Unavailable BARKES, MARS Unavailable [address] + [place] [address] BROWN, DINAH Unavailable Unavailable + D Unavailable Unavailable Unavailable Barkes, Mars Unavailable Unavailable + Brown, Dinah Unavailable Unavailable + BARKES, MARS Unavailable [address] + [place] [address] BROWN, DINAH Unavailable Unavailable + D Unavailable Unavailable Unavailable BARKES, MARS Unavailable [address] [place] [address] ST + [place] [address] BROWN, DINAH Unavailable Unavailable + D Unavailable Unavailable Unavailable BARKES, MARS Unavailable Unavailable + BROWN, DINAH Unavailable Unavailable + D Unavailable Unavailable Unavailable BARKES, MARS Unavailable Unavailable + BROWN, DINAH Unavailable Unavailable + D Unavailable Unavailable Unavailable BARKES, MARS Unavailable Unavailable + DINAH OSBORN Unavailable Unavailable + UE Unavailable Unavailable Unavailable Barkes, Mars Unavailable Unavailable + Dinah Osborn Unavailable Unavailable + Barkes, Mars Unavailable Unavailable + Dinah Osborn Unavailable Unavailable + BARKJENY, LANCE Unavailable [address] + [place], [place] [id number] BARKES, MARS Unavailable Unavailable Unavailable NOT GIVEN Unavailable Unavailable Unavailable BARKES, LANCE Unavailable [address] + [place], [place] [id number] BARKES, MARS Unavailable Unavailable Unavailable NOT GIVEN Unavailable Unavailable Unavailable Care Team Providers Name Role KATIA Ledbetter Consulting Unavailable TETYUK, PENELOPE Admitting Unavailable TETYUK, PENELOPE Attending Unavailable NICK MONTENEGRO Consulting Unavailable Mandapat, Daya Attending Unavailable Mandapat, Daya [...] Care Unavailable MOR DOUGLASS DO Admitting Unavailable OMMOR HURST DO Attending Unavailable MOR DOUGLASS DO Primary Care Unavailable MARLO LANG MD Consulting Unavailable MARLO LANG MD Referring Unavailable PROVIDER, UNKNOWN Consulting Unavailable DOROTEO TABOR Admitting Unavailable DOROTEO TABOR Attending Unavailable MARLO LANG MD Referring Unavailable DOROTEO TABOR Primary Care Unavailable MARLO LANG MD Consulting Unavailable PROVIDER, UNKNOWN Consulting Unavailable PENELOPE PERSAUD Admitting Unavailable PENELOPE PERSAUD Attending Unavailable Jan MCGOWAN Consulting Unavailable NICK MONTENEGRO Consulting Unavailable Dena Moore Attending Unavailable PROVIDER, UNKNOWN Referring Unavailable IVIS, MICHELINE Primary Care Unavailable Stephanie Estrada Attending Unavailable PROVIDER, UNKNOWN Referring Unavailable IVIS, MICHELINE Primary Care Unavailable PROVIDER, UNKNOWN Referring Unavailable IVIS, MICHELINE Primary Care Unavailable Hashiguchi, Luke Attending Unavailable Hashiguchi, Luke Attending Unavailable PROVIDER, UNKNOWN Referring Unavailable IVIS, MICHELINE Primary Care Unavailable Hashiguchi, Luke Attending Unavailable PROVIDER, UNKNOWN Referring Unavailable IVIS, MICHELIEN Primary Care Unavailable PROVIDER, UNKNOWN Referring Unavailable IVIS, MICHELINE Primary Care Unavailable Hashiguchi, Luke Attending Unavailable Cullado, Micheline Attending Unavailable PROVIDER, UNKNOWN Referring Unavailable IVIS, MICHELINE Primary Care Unavailable Cullado, Micheline Attending Unavailable PROVIDER, UNKNOWN Referring Unavailable IVIS, MICHELINE Primary Care Unavailable Cullado, Micheline Attending Unavailable PROVIDER, UNKNOWN Referring Unavailable Ivis, Micheline Primary Care Unavailable PROVIDER, UNKNOWN Referring Unavailable IVIS, MICHELINE Primary Care Unavailable Hashiguchi, Luke Attending Unavailable PROVIDER, UNKNOWN Referring Unavailable IVIS, MICHELINE Primary Care Unavailable Arash Corado Attending Unavailable PROBLEMS PROBLEMS DATE TYPE CONDITION / CODE ATTENDING STATUS SOURCE 09/01/2018 Admitting Hypokalemia / Hashiguchi, Active [facility] Diagnosis E87.6(ICD-10) [facility] System Repository 08/30/2018 Admitting 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, 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, [facility] System unspecified / Repository G90.50(ICD-10) 08/30/2018 Admitting Personal history of Cullado, Active [facility] Diagnosis nicotine dependence [facility] / Z87.891(ICD-10) Repository 08/30/2018 Admitting Fibromyalgia / Cullado, Active [facility] Diagnosis M79.7(ICD-10) [facility] Repository 08/30/2018 Admitting Hypothyroidism, Cullado, Active [facility] Diagnosis unspecified / [facility] E03.9(ICD-10) Repository 08/30/2018 Admitting Presence of coronary Cullado, 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 [facility] and graft / Repository Z95.5(ICD-10) 08/30/2018 Admitting 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Cullado, 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 / Repository Z90.710(ICD-10) 08/30/2018 Admitting Noninfective Cullado, Active [facility] Diagnosis gastroenteritis and [facility] colitis, unspecified Repository / K52.9(ICD-10) 08/30/2018 Admitting Crohn's disease of Cullado, Active [facility] Diagnosis small intestine [facility] without Repository complications / K50.00(ICD-10) 08/25/2018 Admitting Other specified Cullado, Active [facility] Diagnosis diseases of the [facility] digestive system / Repository K92.89(ICD-10) 08/25/2018 Admitting Crohn's disease, Cullado, Active [facility] Diagnosis unspecified, without [facility] complications / Repository K50.90(ICD-10) 08/17/2018 Unknown K65.1 - Peritoneal Mandapat, Active [facility] abscess / [facility] K65.1(ICD-10) Hospital Repository 08/04/2018 Admitting Other ascites / Hashiguchi, Active [facility] Diagnosis R18.8(ICD-10) [facility] Repository 08/04/2018 Admitting Abnormal findings on Hashiguchi, Active [facility] Diagnosis dx imaging of oth [facility] body structures / Repository R93.89(ICD-10) 08/04/2018 Admitting Abnormal findings on Hashiguchi, Active [facility] Diagnosis dx imaging of prt [facility] digestive tract / Repository R93.3(ICD-10) 08/04/2018 Admitting Candidiasis of vulva Hashiguchi, Active [facility] Diagnosis and vagina / [facility] B37.3(ICD-10) Repository 08/04/2018 Admitting Crohn's disease of Hashiguchi, Active [facility] Diagnosis both small and lg [facility] int w oth Repository complication / K50.818(ICD-10) 07/26/2018 Admitting Encntr for f/u exam Hashiguchi, Active [facility] Diagnosis aft trtmt for cond [facility] oth than malig Repository neoplm / Z09(ICD-10) 07/17/2018 Admitting Peritoneal abscess / Zaugg, Active [facility] Diagnosis K65.1(ICD-10) System Repository 07/17/2018 Admitting Urinary tract Zaugg, Active [facility] Diagnosis infection, site not System specified / Repository N39.0(ICD-10) 07/17/2018 Admitting Hypomagnesemia / Zaugg, Active [facility] Diagnosis E83.42(ICD-10) System Repository 07/17/2018 Admitting Cutaneous abscess of Zaugg, Active [facility] Diagnosis abdominal wall / System L02.211(ICD-10) Repository 07/17/2018 Admitting Sepsis, unspecified Zaugg, Active [facility] Diagnosis organism / System A41.9(ICD-10) Repository 07/17/2018 Admitting Crohn's disease of Zaugg, Active [facility] Diagnosis both small and large System intestine w abscess Repository / K50.814(ICD-10) 07/17/2018 Admitting Postprocedural Zaugg, Active [facility] hypothyroidism / System E89.0(ICD-10) Repository 07/17/2018 Admitting Adverse effect of Zaugg, Active [facility] Diagnosis unsp systemic System antibiotic, init Repository encntr / T36.95XA(ICD-10) 07/17/2018 Admitting shelter (current) Zaugg, Active [facility] Diagnosis use of systemic System steroids / Repository Z79.52(ICD-10) 07/02/2018 Admitting Crohn's disease, Oscar, [employer] 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 Repository / I25.10(ICD-10) 07/02/2018 Admitting Body mass index Oscar, Active [facility] Diagnosis (BMI) 24.0-24.9, [facility] adult / Repository Z68.24(ICD-10) 07/02/2018 Admitting Abnormal weight loss Oscar, Active [facility] / R63.4(ICD-10) [facility] Repository 07/02/2018 Admitting Elevated white blood Oscar, [facility] cell count, [facility] System unspecified / Repository D72.829(ICD-10) 07/02/2018 Admitting Anemia, unspecified Oscar, Active [facility] Diagnosis / D64.9(ICD-10) [facility] System Repository 07/01/2018 Active Unknown / CORI, Active [place] UNK(Unknown) [facility] Other [place] Repository 05/08/2018 Admitting Unknown / NA Active [facility] diagnosis UNK(Unknown) Hospital Repository 12/28/2017 Admitting Vomiting, OMLEY, 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 unspecified / DO [facility] R1110(ICD-10) Hospital Repository 12/28/2017 Principle Noninfective OMLEY, 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 gastroenteritis and DO [facility] colitis, unspecified Hospital / K529(ICD-10) Repository 12/28/2017 Secondary Crohn's disease, OMLEY, 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 unspecified, without DO [facility] complications / Hospital K5090(ICD-10) Repository 12/28/2017 Secondary Atherosclerotic OMLEY, 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 Repository angina pectoris / I2510(ICD-10) 12/28/2017 Secondary Presence of coronary OMLEY, 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 COMPARISON: None. REASON FOR STUDY: Concern for rectovaginal fistula. TECHNIQUE: Approximately 300 mL of Cystografin was instilled into the urinary bladder by gravity through an indwelling Lino catheter. Fluoroscopic spot images were acquired in varying positions at different bladder volumes. FLUOROSCOPY TIME: 3.1 minutes. FINDINGS: The urinary bladder is normally distensible and shows no mucosal abnormality or intraluminal filling defect. No vesicoureteral reflux or extraluminal extravasation of contrast is observed. There is no appreciable extraluminal fistulous communication. CONCLUSION(S): 1. No extraluminal extravasation or fistulous communication to the urinary bladder identified during fluoroscopy. 2. No evidence of vesicoureteral reflux. Report Dictated on Final Dictating Physician: MD DEVINE B NELSON Signed Date and Time: 09/07/2018 9:56 am Signed by: MD DEVINE B NELSON Transcribed Date and Time: 09/07/2018 9:57 CBC W/DIFF, AUTOMATED Collected: 09/06/2018 Status: F Source: [facility] 2:00 PM [facility] [place] [place] REPOSITORY TYPE CODE TESTS RESULT OUT OF RANGE REFERENCE UNITS LAB L100.1000 4.4-11.0 K/mm3 Normal WBC 7.3 LAB L100.1200 4.2-5.4 M/mm3 Low RBC 3.46 LAB L100.1300 12.0-15.0 g/dl Low HGB 10.6 LAB L100.1400 37-47 % Low HCT 32.7 LAB L100.1500 81-99 fL Normal MCV 94.5 LAB L100.1600 27.0-32.0 pg Normal MCH 30.6 LAB L100.1700 32-36 g/gl Normal MCHC 32.4 LAB L100.1810 11.6-14.6 % Normal RDW CV 13.6 LAB L100.1820 35.1-43.9 fl High RDW SD 45.1 LAB L100.1900 150-450 K/mm3 Normal PLT 402 LAB L100.2000 6.2-12.0 fl Normal MPV 9.2 LAB L100.2100 47-70 % High NEUT% 72.0 LAB L100.2200 19-41 % Normal LY% 21.4 LAB L100.2300 0-10 % Normal MONO% 4.7 LAB L100.2400 0-5 % Normal EO% 1.4 LAB L100.2500 0-1 % Normal BASO% 0.4 LAB L100.2550 0.0-0.9 % Normal IM GRAN % 0.100 Result Comment: IG% - Immature Granulocytes (promyelocytes, myelocytes and metamyelocytes) > 1% indicates that a LEFT SHIFT is Present. LAB L100.2620 2.0-7.7 X10 3/uL Normal Absolute Neut 5.2 LAB L100.2720 0.83-4.51 X10 3/ul Normal Absolute Lymph 1.55 Performed By: #### L100.0100 #### [facility] [address] [place], [address] COMPREHENSIVE METABOLIC Collected: 09/06/2018 Status: F Source: [facility] 2:00 PM [facility] [place] [place] REPOSITORY TYPE CODE TESTS RESULT OUT OF RANGE REFERENCE UNITS LAB L501.0100 74-106 mg/dL Normal GLU 86 Result Comment: Please note revised GLUCOSE reference range effective 2017. LAB L501.1000 7-18 mg/dL Low BUN 6 LAB L501.1100 0.55-1.02 mg/dL Low CREAT,SERUM 0.48 Result Comment: The validity of the calculated GFR AND GFRAA in patients over 70 years has not been determined. Clinical correlation is essential. LAB L501.1110 >60 mL/min Normal EST GFR 146 Result Comment: Non- GFR Calc LAB L501.1115 >60 mL/min Normal EST GFR - AA 177 Result Comment: GFR Calc LAB L501.1255 ml/min Normal Estimated CRCL 122.43 LAB L501.1300 10-20 RATIO BUN/CRE Normal 12.5 LAB L501.1500 6.4-8. g/dL 2 T PROT Normal 7.4 LAB L501.1800 3.2-5. g/dL Low 0 ALB 2.9 LAB L501.1950 2.2-4. g/dL High 2 GLOB 4.5 LAB L501.2000 0.9-2. RATIO Low 4 A/G 0.6 LAB L501.2200 8.5-10 mg/dL Low .1 CA 8.4 LAB L501.4100 15-37 U/L AST Normal 21 LAB L501.4305 45-117 U/L High ALK P 155 LAB L501.4405 13-56 U/L ALT Normal 24 LAB L501.4600 0.20-1 mg/dL Low .00 T BILI 0.10 LAB L501.5300 136-14 mmol/L 5 NA Normal 143 LAB L501.5600 3.5-5. mmol/L Low 1 K 2.9 LAB L501.5900 98-107 mmol/L High CL 108 LAB L501.6100 21.0-3 mmol/L 2.0 CO2 Normal 27.0 LAB L501.6200 5-15 GAP Normal 8 Performed By: #### L500.4050 #### [facility] [address] [place], [address] ED PROVIDER NOTE Observed: 09/01/2018 Status: F Source: [facility] 1:20 PM SYSTEM REPOSITORY This patient presented to the ER today by mistake. She states she does not wish to be seen at this time. She was told to come in by a physician that did not know her very well. She does have history of Crohn's and has chronic hypokalemia. She was instructed by this other doctor to come in for correction of her hypokalemia. Patient however artery has an appointment for her known hypokalemia with her regular doctor. She is supposed to see her later today for potassium infusion as scheduled. There is already a progress note started by this provider with diagnosis of hypokalemia. This was seen on chart review. Patient does not wish to be seen at this time in the ER. She just wants to go see her regular doctor to have her scheduled potassium infusion. Patient is alert and awake and standing and family without difficulty. Mentating normally. Arash Corado PA-C 09/01/18 1355 CBC W/DIFF, AUTOMATED Collected: 08/31/2018 Status: F Source: [facility] 2:15 PM [facility] [place], [place] REPOSITORY TYPE CODE TESTS RESULT OUT OF RANGE REFERENCE UNITS LAB L100.1000 4.4-11.0 K/mm3 Normal WBC 9.0 LAB L100.1200 4.2-5.4 M/mm3 Low RBC 3.55 LAB L100.1300 12.0-15.0 g/dl Low HGB 10.5 LAB L100.1400 37-47 % Low HCT 33.2 LAB L100.1500 81-99 fL Normal MCV 93.5 LAB L100.1600 27.0-32.0 pg Normal MCH 29.6 LAB L100.1700 32-36 g/gl Low MCHC 31.6 LAB L100.1810 11.6-14.6 % Normal RDW CV 13.8 LAB L100.1820 35.1-43.9 fl High RDW SD 47.2 LAB L100.1900 150-450 K/mm3 Normal PLT 374 LAB L100.2000 6.2-12.0 fl Normal MPV 8.8 LAB L100.2100 47-70 % Normal NEUT% 68.0 LAB L100.2200 19-41 % Normal LY% 22.5 LAB L100.2300 0-10 % Normal MONO% 6.7 LAB L100.2400 0-5 % Normal EO% 2.3 LAB L100.2500 0-1 % Normal BASO% 0.4 LAB L100.2550 0.0-0.9 % Normal IM GRAN % 0.100 Result Comment: IG% - Immature Granulocytes (promyelocytes, myelocytes and metamyelocytes) > 1% indicates that a LEFT SHIFT is Present. LAB L100.2620 2.0-7.7 X10 3/uL Normal Absolute Neut 6.1 LAB L100.2720 0.83-4.51 X10 3/ul Normal Absolute Lymph 2.02 Performed By: #### L100.0100 #### [facility] [address] [place], [place], [id number] COMPREHENSIVE METABOLIC Collected: 08/31/2018 Status: F Source: [facility] 2:15 PM [facility] [place], [place] REPOSITORY TYPE CODE TESTS RESULT OUT OF RANGE REFERENCE UNITS LAB L501.0100 74-106 mg/dL High GLU 123 Result Comment: Fasting Glucose result from 100 to 125 mg/dL suggests IMPAIRED HOMEOSTASIS per A.D.A. criteria. Please note revised GLUCOSE reference range effective 2017. LAB L501.1000 7-18 mg/dL Low BUN 5 LAB L501.1100 0.55-1.02 mg/dL Low CREAT,SERUM 0.49 Result Comment: The validity of the calculated GFR AND GFRAA in patients over 70 years has not been determined. Clinical correlation is essential. LAB L501.1110 >60 mL/min Normal EST GFR 143 Result Comment: Non- GFR Calc LAB L501.1115 >60 mL/min Normal EST GFR - AA 173 Result Comment: GFR Calc LAB L501.1300 10-20 RATIO Normal BUN/CRE 10.2 LAB L501.1500 6.4-8.2 g/dL T Normal PROT 7.0 LAB L501.1800 3.2-5.0 g/dL Low ALB 2.9 LAB L501.1950 2.2-4.2 g/dL Normal GLOB 4.1 LAB L501.2000 0.9-2.4 RATIO Low A/G 0.7 LAB L501.2200 8.5-10.1 mg/dL Low CA 8.2 LAB L501.4100 15-37 U/L Low AST 9 LAB L501.4305 45-117 U/L High ALK P 123 LAB L501.4405 13-56 U/L Normal ALT 14 LAB L501.4600 0.20-1.00 mg/dL T Normal BILI 0.30 LAB L501.5300 136-145 mmol/L NA Normal 143 LAB L501.5600 3.5-5.1 mmol/L Low K alert 2.6 Result Comment: Critical Result(s) Called at: 14:58:02 08/31/2018 by: Jeannine Blount to isener LAB L501.5900 98-107 mmol/L High CL 108 LAB L501.6100 21.0-32.0 mmol/L Normal CO2 27.0 LAB L501.6200 5-15 Normal 8 GAP Performed By: #### L500.4050 #### [facility] [address] [place] [address]. [place], [address] Observed: 08/30/2018 Status: F Source: [facility] SURGICAL PATHOLOGY 8:22 AM SYSTEM REPOSITORY [id number] [facility] PATHOLOGY AND LABORATORY MEDICINE [address] [place] [address] FINAL SURGICAL PATHOLOGY REPORT NAME: DAHLIA MARINO : 1970 48 Y F BILLING NO.: [id number] LOCATION: 1XEO PROCEDURE 08/30/2018 DATE: SURGEON: MICHELINE TRIPATHI MD RECEIVED 08/30/2018 DATE: ATTENDING: MICHELINE TRIPATHI MD REPORT DATE: 09/01/2018 COPIES TO: DIAGNOSIS: ANASTOMOSIS, BIOPSY - FRAGMENTS OF SMALL BOWEL MUCOSA WITH LAMINA PROPRIA FIBROSIS, EOSINOPHILS, AND FOCAL SUPERFICIAL MUCOSAL ACUTE INFLAMMATION. FRAGMENTS OF COLONIC MUCOSA WITH CHANGES OF CHRONIC COLITIS WITHOUT ACTIVE INFLAMMATION. COMMENT: There is no evidence of dysplasia or malignancy. Please correlate with clinical and radiographic findings. AHD/AHD <Sign Out Dr. Springer> JOSE ALBERTO LAROSE M.D. CLINICAL INFORMATION: Crohn's SPECIMEN: BIOPSY GROSS DESCRIPTION: Anastomosis Received in formalin are three segments of dasilva tissue 0.3 cm each. Submitted in toto. (3 ns, 1) JCK/JAF Disclaimer: The following statement applies to all immunohistochemistry, in situ hybridization, molecular studies, and immunofluorescence testing. The use of one or more reagents in the above tests is regulated as an analyte specific reagent (ASR). These tests were developed and their performance characteristics determined by the clinical laboratories of [facility]. They have not been cleared by the US Food and Drug Administration (FDA). The FDA has determined that such clearance or approval is not necessary. All the above immunostains were performed on paraffin embedded tissue. Appropriate positive and negative controls (where applicable) were run in parallel with the patient's specimen; these controls showed expected staining pattern, with acceptable intensity of staining. Immunohistochemical assays have not been validated on decalcified tissues. Results should be interpreted with caution given the raised possibility of false negativity on decalcified specimens. Professional Performing Location: [address] [address]. DEPARTMENT OF PATHOLOGY AND LABORATORY MEDICINE [place], [place] [address] RF SMALL BOWEL W/ Observed: 08/25/2018 Status: F Source: [facility] SERIAL FILMS 2:30 PM SYSTEM REPOSITORY Patient Name: DAHLIA MARINO Fluoroscopy Exam Date/Time 08/25/2018 13:09:43 EST Exam RF Small Bowel w/ Serial Films Ordering Physician MD DEUCE, MICHELINE Gaspar Accession Number [id number] CTP4 Codes 48245 () Reason For Exam Crohn's Disease, rt. lower abdominal abscess Report SMALL BOWEL SERIES: CLINICAL INDICATION: Crohn's disease. Right lower abdominal abscess. History of multiple resections. COMPARISON: 08/04/2018 TECHNIQUE: Three cups of barium were administered. Serial images were obtained up to and including 2 1/2 hours. minutes. Spot images of the terminal ileum were obtained. FLUOROSCOPY TIME: 1.80 minutes. Nine fluoroscopic loop runs were obtained. FINDINGS: There is narrowing and mucosal irregularity of the ileocecal colonic anastomosis at the level transverse colon. No obvious fistula is identified. The remaining small bowel is normal in course and caliber. There is no obstruction contrast. IMPRESSION: Narrowing and mucosal irregularity ileocolonic anastomosis below the transverse colon. Consider endoscopy. There is no obstruction to flow of contrast. No fistula is identified. Report Dictated on Final Dictated: 08/25/2018 2:26 pm Dictating Physician: MD MORATAYA NICHOLAS Signed Date and Time: 08/25/2018 2:52 pm Signed by: MD MORATAYA NICHOLAS Transcribed Date and Time: 08/25/2018 2:30 CBC W/DIFF, AUTOMATED Collected: 08/24/2018 Status: F Source: [facility] 2:23 PM [facility] REPOSITORY TYPE CODE TESTS RESULT OUT OF RANGE REFERENCE UNITS LAB L100.1000 4.4-11.0 K/mm3 Normal WBC 8.2 LAB L100.1200 4.2-5.4 M/mm3 Low RBC 3.37 LAB L100.1300 12.0-15.0 g/dl Low HGB 10.2 LAB L100.1400 37-47 % Low HCT 31.6 LAB L100.1500 81-99 fL Normal MCV 93.8 LAB L100.1600 27.0-32.0 pg Normal MCH 30.3 LAB L100.1700 32-36 g/gl Normal MCHC 32.3 LAB L100.1810 11.6-14.6 % Normal RDW CV 14.0 LAB L100.1820 35.1-43.9 fl High RDW SD 47.7 LAB L100.1900 150-450 K/mm3 Normal PLT 346 LAB L100.2000 6.2-12.0 fl Normal MPV 9.2 LAB L100.2100 47-70 % Normal NEUT% 61.6 LAB L100.2200 19-41 % Normal LY% 26.3 LAB L100.2300 0-10 % Normal MONO% 8.0 LAB L100.2400 0-5 % Normal EO% 3.5 LAB L100.2500 0-1 % Normal BASO% 0.4 LAB L100.2550 0.0-0.9 % Normal IM GRAN % 0.200 Result Comment: IG% - Immature Granulocytes (promyelocytes, myelocytes and metamyelocytes) > 1% indicates that a LEFT SHIFT is Present. LAB L100.2620 2.0-7.7 X10 3/uL Normal Absolute Neut 5.0 LAB L100.2720 0.83-4.51 X10 3/ul Normal Absolute Lymph 2.16 Performed By: #### L100.0100 #### [facility] [address] [place], [address] COMPREHENSIVE METABOLIC Collected: 08/24/2018 Status: F Source: [facility] 2:23 PM [facility] [place] [place] REPOSITORY TYPE CODE TESTS RESULT OUT OF RANGE REFERENCE UNITS LAB L501.0100 74-106 mg/dL Normal GLU 79 Result Comment: Please note revised GLUCOSE reference range effective 2017. LAB L501.1000 7-18 mg/dL Normal BUN 7 LAB L501.1100 0.55-1.02 mg/dL Low CREAT,SERUM 0.46 Result Comment: The validity of the calculated GFR AND GFRAA in patients over 70 years has not been determined. Clinical correlation is essential. LAB L501.1110 >60 mL/min Normal EST GFR 153 Result Comment: Non- GFR Calc LAB L501.1115 >60 mL/min Normal EST GFR - AA 186 Result Comment: GFR Calc LAB L501.1255 ml/min Normal Estimated CRCL 127.75 LAB L501.1300 10-20 RATIO BUN/CRE Normal 15.2 LAB L501.1500 6.4-8. g/dL 2 T PROT Normal 7.3 LAB L501.1800 3.2-5. g/dL Low 0 ALB 3.0 LAB L501.1950 2.2-4. g/dL High 2 GLOB 4.3 LAB L501.2000 0.9-2. RATIO Low 4 A/G 0.7 LAB L501.2200 8.5-10 mg/dL Low .1 CA 8.2 LAB L501.4100 15-37 U/L Low AST 12 LAB L501.4305 45-117 U/L ALK P Normal 107 LAB L501.4405 13-56 U/L ALT Normal 13 LAB L501.4600 0.20-1 mg/dL .00 T BILI Normal 0.20 LAB L501.5300 136-14 mmol/L 5 NA Normal 144 LAB L501.5600 3.5-5. mmol/L Low 1 K alert 2.7 Result Comment: Critical Result(s) Called at: 15:33:18 08/24/2018 by: MILES MARQUES TO MANASA AT DR. ANGEL'S OFFICE LAB L501.5900 98-107 mmol/L High CL 108 LAB L501.6100 21.0-32.0 mmol/L Normal CO2 26.0 LAB L501.6200 5-15 Normal GAP 10 Performed By: #### L500.4050 #### [facility] [address] [place], [address] CBC W/DIFF, AUTOMATED Collected: 08/17/2018 Status: F Source: [facility] RE[facility] TYPE CODE TESTS RESULT OUT OF RANGE REFERENCE UNITS LAB L100.1000 4.4-11.0 K/mm3 Normal WBC 6.3 LAB L100.1200 4.2-5.4 M/mm3 Low RBC 3.41 LAB L100.1300 12.0-15.0 g/dl Low HGB 10.3 LAB L100.1400 37-47 % Low HCT 32.7 LAB L100.1500 81-99 fL Normal MCV 95.9 LAB L100.1600 27.0-32.0 pg Normal MCH 30.2 LAB L100.1700 32-36 g/gl Low MCHC 31.5 LAB L100.1810 11.6-14.6 % Normal RDW CV 13.5 LAB L100.1820 35.1-43.9 fl High RDW SD 45.1 LAB L100.1900 150-450 K/mm3 Normal PLT 395 LAB L100.2000 6.2-12.0 fl Normal MPV 9.2 LAB L100.2100 47-70 % Normal NEUT% 65.1 LAB L100.2200 19-41 % Normal LY% 25.1 LAB L100.2300 0-10 % Normal MONO% 6.0 LAB L100.2400 0-5 % Normal EO% 3.0 LAB L100.2500 0-1 % Normal BASO% 0.6 LAB L100.2550 0.0-0.9 % Normal IM GRAN % 0.200 Result Comment: IG% - Immature Granulocytes (promyelocytes, myelocytes and metamyelocytes) > 1% indicates that a LEFT SHIFT is Present. LAB L100.2620 2.0-7.7 X10 3/uL Normal Absolute Neut 4.1 LAB L100.2720 0.83-4.51 X10 3/ul Normal Absolute Lymph 1.59 Performed By: #### L100.0100 #### [facility] [address] [place], [place], [address] COMPREHENSIVE METABOLIC Collected: 08/17/2018 Status: F Source: [facility] 1:44 PM [facility] [place] [place] REPOSITORY TYPE CODE TESTS RESULT OUT OF RANGE REFERENCE UNITS LAB L501.0100 74-106 mg/dL Normal GLU 96 Result Comment: Please note revised GLUCOSE reference range effective 2017. LAB L501.1000 7-18 mg/dL Low BUN 5 LAB L501.1100 0.55-1.02 mg/dL Normal CREAT,SERUM 0.59 Result Comment: The validity of the calculated GFR AND GFRAA in patients over 70 years has not been determined. Clinical correlation is essential. LAB L501.1110 >60 mL/min Normal EST GFR 116 Result Comment: Non- GFR Calc LAB L501.1115 >60 mL/min Normal EST GFR - AA 140 Result Comment: GFR Calc LAB L501.1255 ml/min Normal Estimated CRCL 99.60 LAB L501.1300 10-20 RATIO Low BUN/CRE 8.5 LAB L501.1500 6.4-8. g/dL Normal 2 T PROT 7.0 LAB L501.1800 3.2-5. g/dL Low 0 ALB 2.9 LAB L501.1950 2.2-4. g/dL Normal 2 GLOB 4.1 LAB L501.2000 0.9-2. RATIO Low 4 A/G 0.7 LAB L501.2200 8.5-10 mg/dL Low .1 CA 8.2 LAB L501.4100 15-37 U/L Low AST 9 LAB L501.4305 45-117 U/L Normal ALK P 93 LAB L501.4405 13-56 U/L Normal ALT 14 LAB L501.4600 0.20-1 mg/dL Normal .00 T BILI 0.30 LAB L501.5300 136-14 mmol/L Normal 5 NA 145 LAB L501.5600 3.5-5. mmol/L Low 1 K 2.9 LAB L501.5900 98-107 mmol/L High CL 110 LAB L501.6100 21.0-3 mmol/L Normal 2.0 CO2 27.0 LAB L501.6200 5-15 Normal GAP 8 Performed By: #### L500.4050 #### [facility] [address] [place], [address] CBC W/DIFF, AUTOMATED Collected: 08/10/2018 Status: F Source: [facility] 2:22 PM [facility] [place] [place] REPOSITORY TYPE CODE TESTS RESULT OUT OF RANGE REFERENCE UNITS LAB L100.1000 4.4-11.0 K/mm3 Normal WBC 7.5 LAB L100.1200 4.2-5.4 M/mm3 Low RBC 3.30 LAB L100.1300 12.0-15.0 g/dl Low HGB 10.0 LAB L100.1400 37-47 % Low HCT 31.3 LAB L100.1500 81-99 fL Normal MCV 94.8 LAB L100.1600 27.0-32.0 pg Normal MCH 30.3 LAB L100.1700 32-36 g/gl Low MCHC 31.9 LAB L100.1810 11.6-14.6 % Normal RDW CV 13.5 LAB L100.1820 35.1-43.9 fl High RDW SD 46.7 LAB L100.1900 150-450 K/mm3 Normal PLT 425 LAB L100.2000 6.2-12.0 fl Normal MPV 8.5 LAB L100.2100 47-70 % Normal NEUT% 59.9 LAB L100.2200 19-41 % Normal LY% 28.9 LAB L100.2300 0-10 % Normal MONO% 7.5 LAB L100.2400 0-5 % Normal EO% 3.1 LAB L100.2500 0-1 % Normal BASO% 0.5 LAB L100.2550 0.0-0.9 % Normal IM GRAN % 0.100 Result Comment: IG% - Immature Granulocytes (promyelocytes, myelocytes and metamyelocytes) > 1% indicates that a LEFT SHIFT is Present. LAB L100.2620 2.0-7.7 X10 3/uL Normal Absolute Neut 4.5 LAB L100.2720 0.83-4.51 X10 3/ul Normal Absolute Lymph 2.17 Performed By: #### L100.0100 #### [facility] [address] [place], [address] COMPREHENSIVE METABOLIC Collected: 08/10/2018 Status: F Source: [facility] 2:22 PM [facility] [place] [place] REPOSITORY TYPE CODE TESTS RESULT OUT OF RANGE REFERENCE UNITS LAB L501.0100 74-106 mg/dL Normal GLU 99 Result Comment: Please note revised GLUCOSE reference range effective 2017. LAB L501.1000 7-18 mg/dL Low BUN 6 LAB L501.1100 0.55-1.02 mg/dL Low CREAT,SERUM 0.52 Result Comment: The validity of the calculated GFR AND GFRAA in patients over 70 years has not been determined. Clinical correlation is essential. LAB L501.1110 >60 mL/min Normal EST GFR 133 Result Comment: Non- GFR Calc LAB L501.1115 >60 mL/min Normal EST GFR - AA 160 Result Comment: GFR Calc LAB L501.1255 ml/min Normal Estimated CRCL 113.01 LAB L501.1300 10-20 RATIO BUN/CRE Normal 11.5 LAB L501.1500 6.4-8. g/dL 2 T PROT Normal 7.0 LAB L501.1800 3.2-5. g/dL Low 0 ALB 2.8 LAB L501.1950 2.2-4. g/dL 2 GLOB Normal 4.2 LAB L501.2000 0.9-2. RATIO Low 4 A/G 0.7 LAB L501.2200 8.5-10 mg/dL Low .1 CA 8.2 LAB L501.4100 15-37 U/L Low AST 12 LAB L501.4305 45-117 U/L ALK P Normal 87 LAB L501.4405 13-56 U/L ALT Normal 14 LAB L501.4600 0.20-1 mg/dL .00 T BILI Normal 0.20 LAB L501.5300 136-14 mmol/L High 5 NA 146 LAB L501.5600 3.5-5. mmol/L Low 1 K 2.8 LAB L501.5900 98-107 mmol/L High CL 108 LAB L501.6100 21.0-3 mmol/L 2.0 CO2 Normal 30.0 LAB L501.6200 5-15 GAP Normal 8 Performed By: #### L500.4050 #### [facility] [address] [facility] [place], [address] CT ABDOMEN/PELVIS W/ Observed: 08/04/2018 Status: F Source: [facility] CONTRAST 1:01 PM SYSTEM REPOSITORY Patient Name: DAHLIA MARINO CT Exam Date/Time 08/04/2018 12:09:[address] Abdomen/Pelvis w/ IV Contrast (IV Onl Ordering Physician MD MARCELA, JESSE Accession Number [id number] CPT4 Codes 40958 (CT Abdomen/Pelvis w/ IV Contrast (IV Onl), Q9967 (CT ISOVUE 370MG/[id number]) Reason For Exam RLQ phlegmon vs abscess [...] METABOLIC PANEL Collected: 08/04/2018 Status: F Source: [facility] 9:09 AM SYSTEM REPOSITORY TYPE CODE TESTS [...] Calcium 8.8 Performed By: #### BMP3 #### [facility] [address] [address] CBC W/DIFF, AUTOMATED Collected: 08/03/2018 Status: F Source: [facility] 2:13 PM [facility] [place] [place] REPOSITORY TYPE CODE TESTS RESULT OUT OF [...] Lymph 1.92 Performed By: #### L100.0100 #### [facility] [address] [place], [place], [address] COMPREHENSIVE METABOLIC Collected: 08/03/2018 Status: F Source: [facility] 2:13 PM [facility] [place] [place] REPOSITORY TYPE CODE TESTS RESULT OUT OF [...] 9 GAP Performed By: #### L500.4050 #### [facility] [address] [place] [address]. [place], [place], [id number] CBC W/DIFF, AUTOMATED Collected: 07/27/2018 Status: F Source: [facility] 2:06 PM [facility] [place] [place] REPOSITORY TYPE CODE TESTS RESULT OUT OF [...] Lymph 1.89 Performed By: #### L100.0100 #### [facility] [address] [place], [place], [address] COMPREHENSIVE METABOLIC Collected: 07/27/2018 Status: F Source: [facility] 2:06 PM [facility] [place] [place] REPOSITORY TYPE CODE TESTS RESULT OUT OF [...] Normal 7 Performed By: #### L500.4050 #### [facility] [address] [place], [address] CBC W/DIFF, AUTOMATED Collected: 07/21/2018 Status: F Source: [facility] 2:35 PM [facility] [place] [place] REPOSITORY TYPE CODE TESTS RESULT OUT OF [...] Lymph 1.50 Performed By: #### L100.0100 #### [facility] [address] [place], [address] COMPREHENSIVE METABOLIC Collected: 07/21/2018 Status: F Source: [facility] 2:35 PM [facility] [place] [place] REPOSITORY TYPE CODE TESTS RESULT OUT OF [...] GAP 4 Performed By: #### L500.4050 #### [facility] [address] [place] [address]. [place], [place], [address] CR CHEST PORTABLE Observed: 07/20/2018 Status: F Source: [facility] 6:44 PM SYSTEM REPOSITORY Patient Name: DAHLIA MARINO Diagnostic Radiology Exam Date/Time 07/20/2018 16:55:27 EST Exam CR Chest Portable Ordering Physician DO PINON KATHRYN C Accession Number [id number] CPT4 Codes 64109 () Reason For Exam Line placement Report [...] DISCHARGE SUMMARY Observed: 07/20/2018 Status: F Source: [facility] 1:18 PM SYSTEM REPOSITORY Attestation signed by Kashif Hernandez MD at 08/18/2018 2:30 PM (Updated) Patient seen and examined 07/20/2018. See my exam & notes regarding the discharge plan on progress note attestation dated 07/20/2018 Pager: [phone] Addendum 2:29 PM 08/18/18 On presentation tachycardic 110s, febrile >103, WBC 15.3 secondary to abdominal abscess that required weeks of antibiotics. No other provider listed sepsis, but I listed it in order to avoid a deficiency message because patient had sepsis POA. Pager: [phone] Internal Medicine: Med TeamDischarge Summary [...] (bowel resections x8), hypothyroidism, FM. Presented to [facility] ED on 07/17/18 with worsening abdominal pain. Patient was admitted to [facility] ED in 07/10, discharged 07/04/18. During [...] follow up with her GI doctor in [place], urged her to set up a follow up appointment soon after discharge. ID placed infusion orders for center in [place] with an appointment to start tomorrow. PROCEDURES: PICC placement CONSULTANTS: Interventional Radiology General Surgery Gastrointestinal Infectious Disease DISCHARGE MEDICATIONS: Dahlia Marino Home Medication Instructions MARLYN:[id number] Printed on:07/20/18 9110 Medication Information calcium-vitamin D (OSCAL) 250-125 MG-UNIT [...] Complexity: follow up within 7-14 calendar days (77606) [x] Severe Complexity: follow up within 7 calendar days (66342) FOLLOW UP TESTING, PENDING RESULTS OR REFERRALS AT TRANSITIONAL CARE VISIT: CT of abdomen after 2-3 weeks of abx [x] Yes [] No RECOMMENDED NEXT STEPS: Please follow up with Dr. Langston at the [facility] at 10am on 07/26/2018. Please follow up with your GI doctor in [place]. Please follow up with Dr. Micheline Tripathi of general surgery at [phone] as soon as possible for a follow up appointment in two weeks . DISPOSITION: Home Follow up with Dr. Langston at the [facility] at 10am on 07/26/2018. INSTRUCTIONS TO MA/SW: [...] frame. TIFERON Collected: 07/20/2018 Status: F Source: [facility] 11:02 AM SYSTEM REPOSITORY TYPE CODE TESTS RESULT OUT OF REFERENCE UNITS RANGE LAB QTF Negative NA Quantiferon Negative Performed By: #### QTF #### [facility] [address] [id number] HEMOGRAM Collected: 07/20/2018 Status: F Source: [facility] 4:25 AM SYSTEM REPOSITORY TYPE CODE TESTS [...] By: #### HEMOG, BMP3M, MG3, PHOS3 #### [facility] [address] [place] [phone] BASIC METABOLIC PANEL Collected: 07/20/2018 Status: F Source: [facility] 4:25 AM SYSTEM REPOSITORY TYPE CODE TESTS [...] By: #### HEMOG, BMP3M, MG3, PHOS3 #### [facility] [address] [place] [address] MAGNESIUM Collected: 07/20/2018 Status: F Source: [facility] 4:25 AM SYSTEM REPOSITORY TYPE CODE TESTS RESULT OUT OF REFERENCE UNITS RANGE LAB MG3 1.6-2.3 mg/dL Low Magnesium 1.5 Performed By: #### HEMOG, BMP3M, MG3, PHOS3 #### [facility] [address] PHOSPHORUS Collected: 07/20/2018 Status: F Source: [facility] 4:25 AM SYSTEM REPOSITORY TYPE CODE TESTS RESULT OUT OF RANGE REFERENCE UNITS LAB PHOS3 2.5-4.5 mg/dL Normal Phosphorus 4.3 Performed By: #### HEMOG, BMP3M, MG3, PHOS3 #### [facility] [address] [place] [address] Observed: 07/19/2018 Status: F Source: [facility] CLOSTRIDIUM DIFFICILE 10:53 PM SYSTEM REPOSITORY PCR [...] be submitted. Performed By: #### CDPCR #### [facility] [address] [address] HEMOGRAM Collected: 07/19/2018 Status: F Source: [facility] 5:29 AM SYSTEM REPOSITORY TYPE CODE TESTS [...] By: #### HEMOG, BMP3M, MG3, PHOS3 #### [facility] [address] [place] [phone] BASIC METABOLIC PANEL Collected: 07/19/2018 Status: F Source: [facility] 5:29 AM SYSTEM REPOSITORY TYPE CODE TESTS [...] By: #### HEMOG, BMP3M, MG3, PHOS3 #### [facility] [address] [place] [phone] MAGNESIUM Collected: 07/19/2018 Status: F Source: [facility] 5:29 AM SYSTEM REPOSITORY TYPE CODE TESTS RESULT OUT OF RANGE REFERENCE UNITS LAB MG3 1.6-2.3 mg/dL Normal Magnesium 1.6 Performed By: #### HEMOG, BMP3M, MG3, PHOS3 #### [facility] [address] [address] PHOSPHORUS Collected: 07/19/2018 Status: F Source: [facility] 5:29 AM SYSTEM REPOSITORY TYPE CODE TESTS RESULT OUT OF RANGE REFERENCE UNITS LAB PHOS3 2.5-4.5 mg/dL Normal Phosphorus 3.4 Performed By: #### HEMOG, BMP3M, MG3, PHOS3 #### [facility] [address] [address] HEMOGRAM Collected: 07/18/2018 Status: F Source: [facility] 5:02 AM SYSTEM REPOSITORY TYPE CODE TESTS [...] By: #### HEMOG, BMP3M, MG3, PHOS3 #### [facility] [address] [address] BASIC METABOLIC PANEL Collected: 07/18/2018 Status: F Source: [facility] 5:02 AM SYSTEM REPOSITORY TYPE CODE TESTS [...] By: #### HEMOG, BMP3M, MG3, PHOS3 #### [facility] [address] [place] [address] MAGNESIUM Collected: 07/18/2018 Status: F Source: [facility] 5:02 AM SYSTEM REPOSITORY TYPE CODE TESTS RESULT OUT OF RANGE REFERENCE UNITS LAB MG3 1.6-2.3 mg/dL Normal Magnesium 1.6 Performed By: #### HEMOG, BMP3M, MG3, PHOS3 #### [facility] [address] [place] [phone] PHOSPHORUS Collected: 07/18/2018 Status: F Source: [facility] 5:02 AM SYSTEM REPOSITORY TYPE CODE TESTS RESULT OUT OF RANGE REFERENCE UNITS LAB PHOS3 2.5-4.5 mg/dL Normal Phosphorus 3.5 Performed By: #### HEMOG, BMP3M, MG3, PHOS3 #### [facility] [address] [place] [phone] BASIC METABOLIC PANEL Collected: 07/17/2018 Status: F Source: [facility] 2:00 PM SYSTEM REPOSITORY TYPE CODE TESTS [...] Calcium 7.5 Performed By: #### BMP3 #### [facility] [address] [place], [place] LACTIC ACID Collected: 07/17/2018 Status: F Source: [facility] 11:25 AM SYSTEM REPOSITORY TYPE CODE TESTS RESULT OUT OF REFERENCE UNITS RANGE LAB LACT3 0.7-2.0 mmol/L Low Lactic Acid < 0.5 Performed By: #### LACT3 #### [facility] [address] [place], [place] Observed: 07/17/2018 Status: F Source: [facility] CULTURE URINE 8:28 AM SYSTEM REPOSITORY Order Comment: Specimen Source Comment:Urine, clean catch CULTURE URINE --> Status: F Normal urogenital elham present. Performed By: #### C/UR #### [facility] [place], [place] CT ABDOMEN/PELVIS W/ Observed: 07/17/2018 Status: F Source: [facility] CONTRAST 5:09 AM SYSTEM REPOSITORY Patient Name: DAHLIA MARINO CT Exam Date/Time 07/17/2018 05:32:[address] Abdomen/Pelvis w/ IV Contrast (IV Onl Ordering Physician MD JAMIR, IRENE Gray Accession Number [id number] CPT4 Codes 49562 (CT Abdomen/Pelvis w/ IV Contrast (IV Onl), Q9967 (CT ISOVUE 370MG/[id number]) Reason For Exam recent abscess due to [...] 07/17/2018 5:09 Observed: 07/17/2018 Status: F Source: [facility] CULTURE BLOOD 4:57 AM SYSTEM REPOSITORY Order Comment: Specimen Source Comment:Blood CULTURE BLOOD --> Status: F No growth at 5 days. Performed By: #### C/BLD #### [facility] [address] [place] [phone] Observed: 07/17/2018 Status: F Source: [facility] CULTURE BLOOD (TWO) 4:01 AM SYSTEM REPOSITORY Order Comment: Specimen Source Comment:Blood CULTURE BLOOD (Two) --> Status: F No growth at 5 days. Performed By: #### C/BLT #### [facility] [address] [place] [phone] HEMOGRAM W/ AUTODIFF Collected: 07/17/2018 Status: F Source: [facility] 4:00 AM SYSTEM REPOSITORY TYPE CODE TESTS [...] LIPA4, LFT3, BMP3, CRP2, ESR, PCAL #### [facility] [address] [place] [phone] LACTIC ACID Collected: 07/17/2018 Status: F Source: [facility] 4:00 AM SYSTEM REPOSITORY TYPE CODE TESTS RESULT OUT OF RANGE REFERENCE UNITS LAB LACT3 0.7-2.0 mmol/L Normal Lactic Acid 1.2 Performed By: #### HEMDF, LACT3, LIPA4, LFT3, BMP3, CRP2, ESR, PCAL #### [facility] [address] [place] [phone] LIPASE Collected: 07/17/2018 Status: F Source: [facility] 4:00 AM SYSTEM REPOSITORY TYPE CODE TESTS RESULT OUT OF RANGE REFERENCE UNITS LAB LIPA4 23-300 U/L Normal Lipase 38 Performed By: #### HEMDF, LACT3, LIPA4, LFT3, BMP3, CRP2, ESR, PCAL #### [facility] [address] [place] [phone] HEPATIC FUNCTION Collected: 07/17/2018 Status: F Source: [facility] 4:00 AM SYSTEM REPOSITORY TYPE CODE TESTS [...] LIPA4, LFT3, BMP3, CRP2, ESR, PCAL #### [facility] [address] [place] [id number] BASIC METABOLIC PANEL Collected: 07/17/2018 Status: F Source: [facility] 4:00 AM SYSTEM REPOSITORY TYPE CODE TESTS [...] LIPA4, LFT3, BMP3, CRP2, ESR, PCAL #### [facility] [address] [place] [id number] C-REACTIVE PROTEIN Collected: 07/17/2018 Status: F Source: [facility] 4:00 AM SYSTEM REPOSITORY TYPE CODE TESTS RESULT OUT OF REFERENCE UNITS RANGE LAB 2CRP 0.0-6.0 mg/L High C-Reactive 11.6 Protein Result Comment: . Performed By: #### HEMDF, LACT3, LIPA4, LFT3, BMP3, CRP2, ESR, PCAL #### [facility] [address] [place] [address] [id number] SED RATE Collected: 07/17/2018 Status: F Source: [facility] 4:00 AM SYSTEM REPOSITORY TYPE CODE TESTS RESULT OUT OF RANGE REFERENCE UNITS LAB ESR 0-20 mm/h High Sed Rate 27 Performed By: #### HEMDF, LACT3, LIPA4, LFT3, BMP3, CRP2, ESR, PCAL #### [facility] [address] [place] [phone] PROCALCITONIN Collected: 07/17/2018 Status: F Source: [facility] 4:00 AM SYSTEM REPOSITORY TYPE CODE TESTS RESULT OUT OF REFERENCE UNITS RANGE LAB PRO <0.10 ng/mL Procalcitonin Normal < 0.10 LAB INT3 NA Interpretation See Below Result Comment: PCT <0.50 = Low risk of severe sepsis and/or septic shock. PCT >2.00 = High risk of severe sepsis and/or septic shock. Performed By: #### HEMDF, LACT3, LIPA4, LFT3, BMP3, CRP2, ESR, PCAL #### [facility] [address] [place] [phone] ED PROVIDER NOTE Observed: 07/17/2018 Status: F Source: [facility] 2:30 AM SYSTEM REPOSITORY [facility] EMERGENCY DEPT eMERGENCY dEPARTMENT eNCOUnter Pt Name: Dahlia Marino Birthdate 1970 Date of evaluation: 07/17/2018 Provider: Irene Marlow MD Chief Complaint: No chief complaint on file. [place]: Dahlia Marino is a 48 y.o. female [...] antibiotics in the hospital. She is from [place] but was referred here because the hospital [...] by myself in the absence of a data processor) none Chart review shows recent radiographs: Ct Abdomen Pelvis W Contrast Result Date: 07/02/2018 Patient Name: DAHLIA MARINO ---CT--- Exam Date/Time 07/02/2018 07:47:[address] Abdomen/Pelvis w/ IV Contrast (IV Onl Ordering Physician MD IVIS, MPH, MICHELINE Accession Number [id number] CPT4 Codes 57120 (CT Abdomen/Pelvis w/ IV Contrast (IV Onl), Q9967 (CT ISOVUE 370MG/ML&[id number]&ML&1) Reason For Exam Crohns flare, known abscess [...] PROVIDER NOTE Observed: 07/17/2018 Status: F Source: [facility] 2:30 AM SYSTEM REPOSITORY Emergency Department Encounter Location: [facility]PT Patient: Dahlia Marino : [...] # 1.4 1.0 - 4.3 10*3/uL Absolute [place] # 1.2 (H) 0.0 - 0.8 10*3/uL [...] eGFR >60.0 >60 mL/min EGFR IF NonAfrican [place]ian >60.0 >60 mL/min Calcium 8.1 (L) 8.4 [...] Physician MD JAMIR, IRENE Gray Accession Number [id number] CPT4 Codes 94171 (CT Abdomen/Pelvis w/ IV Contrast (IV Onl), Q9967 (CT ISOVUE 370MG/ML&[id number]&ML&1) Reason For Exam recent abscess due to [...] acetaminophen (TYLENOL) tablet 1,000 mg ONCE Last OCT action: Given - by LINN [...] are mis-transcribed.) Bon Mercedes MD Acute Care [facility] Bon Mercedes MD 07/17/18 0551 DISCHARGE SUMMARY Observed: 07/04/2018 Status: F Source: [facility] 11:29 AM SYSTEM REPOSITORY Attestation signed by [...] x8, on gregory), hypothyroidism, fibromyalgia presented to [facility] w/ progressive 6 week hx of abdominal pain. She was first seen at [facility] in [place], [place] 6wks prior to admission for abdominal [...] in the urine. CT abdomen done at [facility] (07/01/18) which showed a complex inflammatory collection/mass in anterior RLQ abscess. Patient was then transferred to [facility] the same day for further management and a second opinion. Patient and then requested transfer to [facility] as they have had family treated [...] CONSULTANTS: GI- Oliver Quigley Gen Surg- Micheline Tripathi DISCHARGE MEDICATIONS: Dahlia Marino Home Medication Instructions MARLYN:[id number] Printed on:07/05/18 1007 Medication Information adalimumab (HUMIRA) 40 MG/0.8ML injection [...] Complexity: follow up within 7-14 calendar days (65299) [] Severe Complexity: follow up within 7 calendar days (60155) FOLLOW UP TESTING, PENDING RESULTS OR REFERRALS [...] W/ AUTODIFF Collected: 07/04/2018 Status: F Source: [facility] 5:08 AM SYSTEM REPOSITORY TYPE CODE TESTS [...] #### HEMDF, BMP3M, MG3, PHOS3, LFT3 #### [facility] [address] [place] [address] BASIC METABOLIC PANEL Collected: 07/04/2018 Status: F Source: [facility] 5:08 AM SYSTEM REPOSITORY TYPE CODE TESTS [...] #### HEMDF, BMP3M, MG3, PHOS3, LFT3 #### [facility] [address] [place] [phone] MAGNESIUM Collected: 07/04/2018 Status: F Source: [facility] 5:08 AM SYSTEM REPOSITORY TYPE CODE TESTS RESULT OUT OF RANGE REFERENCE UNITS LAB MG3 1.6-2.3 mg/dL Normal Magnesium 1.8 Performed By: #### HEMDF, BMP3M, MG3, PHOS3, LFT3 #### [facility] [address] [place] [phone] PHOSPHORUS Collected: 07/04/2018 Status: F Source: [facility] 5:08 AM SYSTEM REPOSITORY TYPE CODE TESTS RESULT OUT OF RANGE REFERENCE UNITS LAB PHOS3 2.5-4.5 mg/dL Normal Phosphorus 3.8 Performed By: #### HEMDF, BMP3M, MG3, PHOS3, LFT3 #### [facility] [address] [place] [phone] HEPATIC FUNCTION Collected: 07/04/2018 Status: F Source: [facility] 5:08 AM SYSTEM REPOSITORY TYPE CODE TESTS [...] #### HEMDF, BMP3M, MG3, PHOS3, LFT3 #### [facility] [address] [place] [phone] HEMOGRAM W/ AUTODIFF Collected: 07/03/2018 Status: F Source: [facility] 2:31 AM SYSTEM REPOSITORY TYPE CODE TESTS [...] By: #### HEMDF, MG3, PHOS3, BMP3M #### [facility] [address] [place] [address] MAGNESIUM Collected: 07/03/2018 Status: F Source: [facility] 2:31 AM SYSTEM REPOSITORY TYPE CODE TESTS RESULT OUT OF RANGE REFERENCE UNITS LAB MG3 1.6-2.3 mg/dL Normal Magnesium 2.1 Performed By: #### HEMDF, MG3, PHOS3, BMP3M #### [facility] [place] PHOSPHORUS Collected: 07/03/2018 Status: F Source: [facility] 2:31 AM SYSTEM REPOSITORY TYPE CODE TESTS RESULT OUT OF RANGE REFERENCE UNITS LAB PHOS3 2.5-4.5 mg/dL Normal Phosphorus 3.8 Performed By: #### HEMDF, MG3, PHOS3, BMP3M #### [facility] [address] [place] [address] BASIC METABOLIC PANEL Collected: 07/03/2018 Status: F Source: [facility] 2:31 AM SYSTEM REPOSITORY TYPE CODE TESTS [...] By: #### HEMDF, MG3, PHOS3, BMP3M #### [facility] [address] [place] [address] URINALYSIS,MACRO Collected: 07/03/2018 Status: F Source: [facility] 2:23 AM SYSTEM REPOSITORY TYPE CODE TESTS RESULT OUT OF REFERENCE UNITS RANGE LAB APPUR Clear NA Appearance Cloudy LAB COLUR Lt. Yellow NA Color Yellow LAB USG 1.005-1.030 NA Specific Normal [place],Urine 1.015 LAB UPH 5.0-8.0 NA pH,Urine Normal [...] 250 Performed By: #### UAMAC, UAMIC #### [facility] [address] [place] [address] URINALYSIS,MICROSCOPIC Collected: Status: F Source: [employer] 07/03/2018 2:23 AM HEALTH SYSTEM REPOSITORY TYPE CODE TESTS RESULT OUT OF REFERENCE UNITS RANGE LAB WBCU 0-5 /[HPF] 26 WBC,Urine - 50 LAB RBCU 0-2 /[HPF] 11 RBC,Urine - 25 LAB EPIU 3-5 /[HPF] 0 Epithelial Cells - 2 LAB LILLIAM Negative NA Bacteria Many (51-100) LAB AMPH Negative NA Amorphous Moderate Phosphates (6-50) Performed By: #### UAMAC, UAMIC #### [facility] [place] [address] Observed: 07/03/2018 Status: F Source: [facility] CULTURE URINE 2:23 AM SYSTEM REPOSITORY Order Comment: Specimen Source Comment:Urine, clean catch CULTURE URINE --> Status: F No growth (<1,000 CFU/ml). Performed By: #### C/UR #### [facility] [address] [address] [address] ABDOMEN/PELVIS W/ Observed: 07/02/2018 Status: F Source: [facility] CONTRAST 8:06 AM SYSTEM REPOSITORY Patient Name: DAHLIA MARINO CT Exam Date/Time 07/02/2018 07:47:[address] Abdomen/Pelvis w/ IV Contrast (IV Onl Ordering Physician MD IVIS, MPH, MICHELINE Reyes Number [id number] CPT4 Codes 03679 (CT Abdomen/Pelvis w/ IV Contrast (IV Onl), Q9967 (CT ISOVUE 370MG/[id number]) Reason For Exam Crohns flare, known abscess [...] 8:06 URINALYSIS,MACRO Collected: 07/02/2018 Status: F Source: [facility] 1:59 AM SYSTEM REPOSITORY TYPE CODE TESTS RESULT OUT OF REFERENCE UNITS RANGE LAB APPUR Clear NA Appearance Clear LAB COLUR Lt. Yellow NA Color P. Yellow LAB USG 1.005-1.030 NA Specific Normal [place],Urine 1.010 LAB UPH 5.0-8.0 NA pH,Urine Normal [...] 25 Performed By: #### UAMAC, UAMIC #### [facility] [address] [address] URINALYSIS,MICROSCOPIC Collected: Status: F Source: [employer] 07/02/2018 1:59 AM HEALTH SYSTEM REPOSITORY TYPE CODE TESTS RESULT OUT OF REFERENCE UNITS RANGE LAB WBCU 0-5 /[HPF] 11 WBC,Urine - 25 LAB RBCU 0-2 /[HPF] 3 RBC,Urine - 5 LAB EPIU 3-5 /[HPF] 3 Epithelial Cells - 5 LAB LILLIAM Negative NA Bacteria Moderate (6-50) Performed By: #### UAMAC, UAMIC #### [facility] [address] [place] [address] Observed: 07/02/2018 Status: F Source: [employer] BLOOD 1:45 AM SYSTEM REPOSITORY Order Comment: Specimen Source Comment:Blood CULTURE BLOOD --> Status: F No growth at 5 days. Performed By: #### C/BLD #### [facility] [address] [place] [address] Observed: 07/02/2018 Status: F Source: [employer] BLOOD (TWO) 1:45 AM SYSTEM REPOSITORY Order Comment: Specimen Source Comment:Blood CULTURE BLOOD (Two) --> Status: F No growth at 5 days. Performed By: #### C/BLT #### [facility] [address] HEMOGRAM W/ AUTODIFF Collected: 07/02/2018 Status: F Source: [facility] 1:37 AM SYSTEM REPOSITORY TYPE CODE TESTS [...] LACT3, TSH5, CMP3, MG3, FT4M, TROPN #### [facility] [address] [place] [phone] PROTHROMBIN TIME Collected: 07/02/2018 Status: F Source: [facility] 1:37 AM SYSTEM REPOSITORY TYPE CODE TESTS [...] LACT3, TSH5, CMP3, MG3, FT4M, TROPN #### [facility] [address] [place] [phone] LACTIC ACID Collected: 07/02/2018 Status: F Source: [facility] 1:37 AM SYSTEM REPOSITORY TYPE CODE TESTS RESULT OUT OF REFERENCE UNITS RANGE LAB LACT3 0.7-2.0 mmol/L Low Lactic Acid 0.6 Performed By: #### HEMDF, PT, LACT3, TSH5, CMP3, MG3, FT4M, TROPN #### [facility] [address] [place] [phone] THYROID STIM. Collected: 07/02/2018 Status: F Source: [facility] HORMONE 1:37 AM SYSTEM REPOSITORY TYPE CODE TESTS RESULT OUT OF REFERENCE UNITS RANGE LAB TSH5 0.465-4.680 u[IU]/mL Low Thyroid Stim. 0.175 Hormone Performed By: #### HEMDF, PT, LACT3, TSH5, CMP3, MG3, FT4M, TROPN #### [facility] [address] [place] [phone] COMP METABOLIC PANEL Collected: 07/02/2018 Status: F Source: [facility] 1:37 AM SYSTEM REPOSITORY TYPE CODE TESTS [...] LACT3, TSH5, CMP3, MG3, FT4M, TROPN #### [facility] [address] [place] [phone] MAGNESIUM Collected: 07/02/2018 Status: F Source: [facility] 1:37 AM SYSTEM REPOSITORY TYPE CODE TESTS RESULT OUT OF REFERENCE UNITS RANGE LAB MG3 1.6-2.3 mg/dL Low Magnesium 1.5 Performed By: #### HEMDF, PT, LACT3, TSH5, CMP3, MG3, FT4M, TROPN #### [facility] [address] [place] [phone] FREE T4 Collected: 07/02/2018 Status: F Source: [facility] 1:37 AM SYSTEM REPOSITORY TYPE CODE TESTS RESULT OUT OF RANGE REFERENCE UNITS LAB FT4M 0.78-2.19 ng/dL Normal Free T4 1.87 Performed By: #### HEMDF, PT, LACT3, TSH5, CMP3, MG3, FT4M, TROPN #### [facility] [address] [place] [address] TROPONIN I Collected: 07/02/2018 Status: F Source: [facility] 1:37 AM SYSTEM REPOSITORY TYPE CODE TESTS RESULT OUT OF RANGE REFERENCE UNITS LAB TROP4 0.000-0.034 ng/mL Normal Troponin I < 0.012 Result Comment: 0.046 - 0.400 = Indeterminate > 0.400 = Consider Myocardial Injury Performed By: #### HEMDF, PT, LACT3, TSH5, CMP3, MG3, FT4M, TROPN #### [facility] [address] [place] [address] ED PROVIDER NOTE Observed: 07/02/2018 Status: F Source: [facility] 12:02 AM SYSTEM REPOSITORY Emergency Department Encounter [...] the past few weeks, was seen at [facility]. yesterday, CT there showed an intra-abdominal mass [...] otherwise acutely negative except as in the [place]. Past History Past Medical History: Diagnosis Date [...] # 1.6 1.0 - 4.3 10*3/uL Absolute [place] # 1.4 (H) 0.0 - 0.8 10*3/uL [...] eGFR >60.0 >60 mL/min EGFR IF NonAfrican [place]ambian >60.0 >60 mL/min Calcium 8.0 (L) 8.4 [...] UA P. Yellow Lt. Yellow NA Specific [place], Urine 1.010 1.005 - 1.030 NA pH, [...] me Rhythm: normal sinus Rate: normal, 83 [place]: normal Ectopy: none Conduction: normal ST Segments: [...] [facility], only got the CAT scan results [...] by RADHA FOREMAN on 07/02/18 at 0524 KIERRA CAMILO 07/02/18 0400 07/02/18 0310 potassium chloride 10 [...] by RADHA FOREMAN on 07/02/18 at 0349 KOJONATHANB, HELA 07/02/18 0115 07/02/18 0104 0.9 % [...] PROVIDER NOTE Observed: 07/02/2018 Status: F Source: [facility] 12:02 AM SYSTEM REPOSITORY Emergency Department Encounter [facility] EMERGENCY DEPT Patient: Dahlia Marino : 1970 Date of Evaluation: 07/02/2018 ED Provider: BLAIR HOLDEN CNP As the [id number], I performed a medical screening history and [...] per patient and family. They were at [facility] earlier this morning. Per report from family CT was done with oral contrast finding possible abscess below her liver. He was transferred [facility] without their knowledge. Family states they thought she was coming here. He was at [facility] day and that concerns about her care [...] HOLDEN CNP [employer] BLAIR Holden C[place]TON 07/02/18 0151 NURSING PROG Observed: 07/01/2018 Status: COMPLETED Source: [place] 11:34 PM [facility] REPOSITORY HNO ID: [id number] Author: Meme (Rn) EZEKIEL Ramsay Service: Emergency [...] this. I personally spoke with Winter Paez TOE PUNCHER, requested further order to check labs including [...] bleeding. PROGRESS Observed: 07/01/2018 Status: COMPLETED Source: [place] 11:15 PM [facility] REPOSITORY HNO ID: [id number] Author: Jeannine (Clayton) BLAIR Womack.CL[place]TON Service: (none) Author Type: Nurse Practitioner Type: Progress Notes Filed: 07/01/2018 11:51 PM Note Text: CTBS for patient requesting to leave AMA. Nursing supervisor seaming on floor speaking with patient and family. [...] of testing. Family is taking patient to [facility] ED at this time. Pt is alert and oriented x 3, capable of making decisions. AMA paperwork filled out and signed at bedside. Jeannine Womack CNP NURSING PROG Observed: 07/01/2018 Status: COMPLETED Source: [place] 9:25 PM CLINIC OTHER CAMPUS REPOSITORY HNO ID: [id number] Author: Ester (Rn) EZEKIEL Kamara Service: (none) [...] AND PELVIS Observed: 07/01/2018 Status: F Source: [facility] WITH CONTRAST 8:57 PM HEALTH SYSTEM REPOSITORY Performed at [facility] APPROVED BY: Zia Maurer MD Exam [...] advised. CONSULT Observed: 07/01/2018 Status: COMPLETED Source: [place] 4:02 PM [facility] REPOSITORY [facility] ID: [id number] Author: Misty Mcdonald Service: General Surgery Author [...] returned and got worse. Patient presented to [facility] where CT Abd/Pelvis showed a possible [...] CONSULT PROG Observed: 07/01/2018 Status: COMPLETED Source: [place] 3:57 PM [facility] OTHER CAMPUS REPOSITORY O ID: [id number] Author: Kamran Colon Service: Gastroenterology Author Type: [...] ago per patient) who presented to the [facility] ED for abdominal pain. She stated she [...] she called EMS who transferred her to [facility]. In the ED her abdominal CT revealed possible abscess vs neoplasms so she was transferred to [facility]. She denied melena, hematochezia, hematemesis, and [...] about 3-4 years ago (no record in [facility]). FUNCTIONAL STATUS: Independent PAST MEDICAL HISTORY [...] patient 3-4 years ago (no record in [facility]) Assessment AND Plan: Repeat Abdominal CT [...] patient 3-4 years ago (no record in [facility]) Assessment AND Plan: Need records from Program Project Manager Dr. Loomis in [place]. SIGNATURE: Kamran Colon APRN.CNP PATIENT NAME: Dahlia Marino DATE: July 01, 2018 TIME: 3:57 PM PAGER: NUTRITION Observed: 07/01/2018 Status: COMPLETED Source: [place] 3:47 PM CLINIC OTHER CAMPUS REPOSITORY HNO ID: [id number] Author: Argentina Zuluaga RD (Ld) Service: Nutrition [...] gm protein per serving and vanilla Boost [facility] QD, to provide 530 kcal and 22 [...] nutritional status Reason for Assessment: Consult from CONCRETE BUSTER OPERATOR for patient with 28 lbs weight loss in 4 weeks. Per HPI: This is a 47 year old female with PMH of crohns, hypothyroid, wallace, ape, liver sx d/t infection who presents to the [facility] from [facility]. Pt called EMS and had them [...] ENSURE CLEAR MIXED PEREZ Supplement 2: BOOST [facility] VANILLA Lines and Drains: Peripheral 07/01/18 1000 [...] Admitted) 07/01/18 0700 - 07/02/18 0659 Shift [id number] 4616-8253 24 Hour Total [id number] 7239-3130 8645-0233 24 Hour Total I N T A [...] July 01, 2018 TIME: 4:25 PM PAGER: [phone] CEA Collected: 07/01/2018 Status: F Source: [facility] 1:55 PM HEALTH SYSTEM REPOSITORY TYPE CODE TESTS RESULT OUT OF RANGE REFERENCE UNITS LAB CEA(LOINC) 0.0-3.0 ng/mL CEA 2.5 Result Comment: The reference range shown is for adult non-smokers. The range for smokers is 0-5.0 Testing performed by Chemiluminescence LOCI. Performed By: #### CEA #### [place] [address] MAGNESIUM BLOOD Collected: 07/01/2018 Status: F Source: [facility] 1:55 PM HEALTH SYSTEM REPOSITORY TYPE CODE TESTS RESULT OUT OF REFERENCE UNITS RANGE LAB MAG(LOINC) 1.6-2.6 mg/dL Magnesium Blood 1.6 Performed By: #### MAG #### [place] [address] Observed: 07/01/2018 Status: F Source: [facility] CULT BLOOD 12:00 PM HEALTH SYSTEM REPOSITORY Test performed at [facility] No growth Performed By: #### C_BLO #### [place] [address] HEMOGRAM Collected: 07/01/2018 Status: F Source: [facility] 11:55 AM HEALTH SYSTEM REPOSITORY TYPE [...] MPV 9.8 Performed By: #### CBC1 #### [place] [address] LACTIC ACID Collected: 07/01/2018 Status: F Source: [facility] 11:55 AM HEALTH SYSTEM REPOSITORY TYPE CODE TESTS RESULT OUT OF REFERENCE UNITS RANGE LAB LAC(LOINC) 0.4-2.0 mEq/L Lactic Acid 0.4 Performed By: #### LAC #### [place] [address] PHOSPHORUS BLOOD Collected: 07/01/2018 Status: F Source: [facility] 11:55 AM HEALTH SYSTEM REPOSITORY TYPE CODE TESTS RESULT OUT OF REFERENCE UNITS RANGE LAB PHOS(LOINC 2.5-4.9 mg/dL ) Phosphorus Blood 3.8 Performed By: #### PHOS #### [place] [address] CRP Collected: 07/01/2018 Status: F Source: [facility] 11:55 AM HEALTH SYSTEM REPOSITORY TYPE CODE TESTS RESULT OUT OF RANGE REFERENCE UNITS LAB CRP3(LOINC) 0.00-0.30 mg/dL High CRP 8.04 Performed By: #### CRP3 #### [facility] [address] [place] [address] COMPREHENSIVE PANEL Collected: 07/01/2018 Status: F Source: [facility] 11:55 AM HEALTH SYSTEM REPOSITORY TYPE [...] Gap 12 Performed By: #### P14 #### [place] [address] MDRD GFR Collected: 07/01/2018 Status: F Source: [facility] 11:[facility] REPOSITORY TYPE CODE TESTS RESULT OUT OF RANGE REFERENCE UNITS LAB GFRFN(LOINC >60mL/min/1.73m ) 2 eGFR >60 Result Comment: If the patient is , multiply the result by 1.210. Performed By: #### GFR #### [facility] [address] [place] [address] PROTIME Collected: 07/01/2018 Status: F Source: [place] [address]:[id number] [place] [address] SYSTEM REPOSITORY TYPE CODE TESTS RESULT OUT OF REFERENCE UNITS RANGE LAB PTI(LOINC) 9.7-13.0 sec Prothrombin Time 11.7 LAB INR(LOINC) 0.90-1.30 INR 1.14 Result Comment: Note: Reference Range Change Vitamin K Antagonist (VKA) Therapeutic Range: INR 2 to 3 (Target INR of 2.5) Note: For patients treated with VKA drugs, such as warfarin, the [place] [employer] 2012 Guideline recommends [...] 70: 252-289 Performed By: #### PT #### [place] [address] ACTIVATED PTT Collected: 07/01/2018 Status: F Source: [facility] 11:[address] [place] [address] SYSTEM REPOSITORY TYPE CODE TESTS RESULT OUT [...] Medical [facility]. Performed By: #### APTT #### [facility] [address] [place], [place] [address] SED RATE Collected: 07/01/2018 Status: F Source: [facility] 11:55 AM HEALTH SYSTEM REPOSITORY TYPE CODE TESTS RESULT OUT OF RANGE REFERENCE UNITS LAB ESR(LOINC) 0-20 mm/hr High Sed Rate 38 Performed By: #### ESR #### [facility] [address] [place], [place] [address] HISTORY PHYSICAL Observed: 07/01/2018 Status: COMPLETED Source: [place] 11:14 AM CLINIC OTHER CAMPUS REPOSITORY HNO ID: [id number] Author: Meryl Hogan Service: Hospital Medicine Author Type: Nurse Practitioner Type: HANDP Filed: 07/01/2018 11:50 AM Note Text: Attestation signed by Jose Altamirano at 2018 5:50 PM (Updated) I have personally seen and examined the patient. I agree with the CONCRETE BUSTER OPERATOR's note with following addition. Ms Marino, a 47 years old lady who has hx of UC and is on Humira Q week (last dose 2 weeks ago) under care of GI (? Dr Bender in [facility]) and multiple bowel surgeries including bowel resection, has abdominal pain for more than a month initially in lower part now generalized worse with food. Has fever in the last few days. Normal BM (reported diarrhea to [facility]), no nausea. Was treated with flagyl for a week a month ago. Last c scope > 5 years ago and last surgery > 5 years ago. She presented to [facility] where she was noted to have leukocytosis [...] 2 weeks ago), under the care of acting instructor ? Dr Bender 4. Hx of multiple [...] sx d/t infection who presents to the [facility] from [facility]. Pt called EMS and had them [...] July 01, 2018 TIME: 11:15 AM PAGER: [id number] CT ABDOMEN/PELVIS W Observed: 07/01/2018 Status: F [facility] AM [place] [address] Patient: DAHLIA MARINO Phone#: : 1970 Age: 47 Gender: F Pt. Type: ER Account: [id number] Location: 2 Ordering: DOROTEO TABOR Exam Date: 07/01/2018/0:28 Family Phys: MARLO Pj LANG Charge Code: 374500 Physician: Anson Order #: [id number] DLP Dose#: [id number] PROCEDURE: CT ABDOMEN/PELVIS WITH [...] 47 Gender: F Pt. Type: ER Account: [id number] Location: 052 Ordering: DOROTEO TABOR Exam Date: 07/01/2018/0:28 Family Phys: MARLO LANG Charge Code: 591397 Physician: Anson Order #: [id number] DLP Dose#: [id number] ABDOMINAL WALL: Normal. No [...] 8:50 URINALYSIS Collected: 07/01/2018 Status: F Source: [facility] 12:34 AM [facility] REPOSITORY TYPE CODE TESTS RESULT OUT [...] Urobilinog(LOINC) NORMAL: NORMAL Urobilinog NORM LAB Sp Bradd[place](LOINC) NORMAL: 1.010-1.030 Sp Braddock 1.015 LAB Nitrite(LOINC) NORMAL: NEGATIVE Nitrite NEG [...] LAB Yeast(LOINC) Yeast NONE Performed By: #### [id number] #### [facility],[address] [place] [address] Observed: 06/30/2018 Status: F Source: [facility] CULTURE BLOOD 11:25 PM [facility] REPOSITORY CULTURE BLOOD CULTURE BLOOD SET: 2 of 2 24HOUR REPORT NEGATIVE 48HOUR REPORT NEGATIVE 72HOUR REPORT NEGATIVE M I C R O B I O L O G Y R E P O R T FINAL Antimicrobial Susceptibility and Organism Identification Report Specimen Number : [id number] Requested : 06/30/18 Specimen Source : BLOOD Collected : 06/30/18 23:25 [place] of Isolation : Emergency Room Received : 06/30/18 23:25 Requesting Physician : christina Patient/Specimen Tests and Comments Specimen Comments FINAL REPORT: No Growth at 5 Days Tech : Source : BLOOD ID # : [id number] FINAL Report Date : / / : Collected : 06/30/18 23:25 07/06/18.1142.BKO. 07/06/[email or web address].COMPLETE Performed By: #### [id number] #### [facility],[address] [place] [address] CBC Collected: 06/30/2018 Status: F Source: [facility] 10:45 PM [facility] REPOSITORY TYPE CODE TESTS RESULT OUT [...] x10EE3/U L Neut # High 10.00 LAB [place] #(LOINC) 0.20 - 1.00 x10EE3/U L [place] # High 1.30 LAB EO #(LOINC) 0.00 - 0.50 x10EE3/U L EO # 0.00 LAB Baso #(LOINC) 0.00 - 0.10 x10EE3/U L Baso # 0.10 LAB MANUAL DIFF([facility] [facility] MANUAL DIFF N/A LAB MORPHOLOGY(INC ) MORPHOLOGY N/A Result Comment: {CD] Performed By: #### [id number] #### [place] [address] LACTATE Collected: 06/30/2018 Status: F Source: [facility] 10:45 PM [facility] REPOSITORY TYPE CODE TESTS RESULT OUT OF REFERENCE UNITS RANGE LAB LACTATE(MESSI 4.5 - 18.0 mg/dL [place]) Low LACTATE 4.3 Performed By: #### [id number] #### [place] [address] CMP WITH EGFR Collected: 06/30/2018 Status: F Source: [facility] 10:45 PM [facility] REPOSITORY TYPE CODE TESTS RESULT OUT [...] OF AGE AND OLDER. Performed By: #### [id number] #### [place] [id number] LIPASE Collected: 06/30/2018 Status: F Source: [facility] 10:45 [facility] REPOSITORY TYPE CODE TESTS RESULT OUT OF REFERENCE UNITS RANGE LAB LIPASE(LOIN 18.0 - 51.0 U/L C) LIPASE 18.0 Performed By: #### [id number] #### [place] [id number] TROPONIN Collected: 06/30/2018 Status: F Source: [facility] 10:45 [facility] REPOSITORY TYPE CODE TESTS RESULT OUT [...] such as heterophile antibodies). Performed By: #### [id number] #### [facility],[address] [place] [address] TSH Collected: 06/30/2018 Status: F Source: [facility] 10:45 PM [facility] REPOSITORY TYPE CODE TESTS RESULT OUT OF RANGE REFERENCE UNITS LAB TSH(LOINC) 0.34 - 5.60 uIU/ml Low TSH 0.17 Performed By: #### [id number] #### [place] [id number] Observed: 06/30/2018 Status: F Source: [facility] CULTURE BLOOD 10:45 [facility] REPOSITORY CULTURE BLOOD CULTURE BLOOD SET: 1 of 2 24HOUR REPORT NEGATIVE 48HOUR REPORT NEGATIVE 72HOUR REPORT NEGATIVE M I C R O B I O L O G Y R E P O R T FINAL Antimicrobial Susceptibility and Organism Identification Report Specimen Number : [id number] Requested : 06/30/18 Specimen Source : BLOOD Collected : 06/30/18 22:45 [place] of Isolation : Emergency Room Received : 06/30/18 22:45 Requesting Physician : christina Patient/Specimen Tests and Comments Specimen Comments FINAL REPORT: No Growth at 5 Days Tech : Source : BLOOD ID # : [id number] FINAL Report Date : / / : Collected : 06/30/18 22:45 07/06/18.1142.BKO. 07/06/18.1142.BKO.COMPLETE Performed By: #### [id number] #### [facility],[address] [place] [address] EMERGENCY REPORT Observed: 06/30/2018 Status: F Source: [facility] 9:55 PM [facility] EMERGENCY ROOM REPORT NAME ACCOUNT SEX AGE ADMIT DISCHARGE PT MED. RECORD# NUMBER DATE DATE TYPE DAHLIA MARINO [id number] F 47 06/30/18 07/01/18 3 R [id number] ROOM: ER DATE OF : 1970 DICTATING [...] our surgical service here at [facility], who due to this patient's complicated medical history suggested transfer to [place] in [place]. I then contacted [place], who suggested contacting the [facility] due to her complicated history. I then contacted [facility], who was agreeable with accepting the patient. The patient was monitored in our Emergency Department throughout the night and then transferred in stable condition. Dictated By: Doroteo Tabor DO 07/01/18 07:00 JOB #: [id number] Transcribed By: jen 07/01/18 09:44 Electronically signed by: E-SIGN: Doroteo Tabor D.O. 07/08/18 06:49 Page 2 of 2 DAHLIA MARINO Emergency Room Report EMERGENCY REPORT Observed: 06/30/2018 Status: F Source: [facility] 9:55 PM [facility] EMERGENCY ROOM REPORT NAME ACCOUNT SEX AGE ADMIT DISCHARGE PT MED. RECORD# NUMBER DATE DATE TYPE DAHLIA MARINO [id number] F 47 06/30/18 07/01/18 3 R [id number] ROOM: ER DATE OF : 1970 DICTATING [...] Lore Mujica DO 07/01/18 08:22 JOB #: [id number] Transcribed By: jen 07/01/18 10:00 Electronically signed by: E-Sign: LORE MUJICA MD 07/12/18 12:00 Page 1 of 1 DAHLIA MARINO Emergency Room Report EMERGENCY DEPARTMENT Observed: 05/11/2018 Status: F Source: [facility] 4:14 [place] [address] HEALTH INFORMATION MANAGEMENT EMERGENCY DEPARTMENT REPORT Patient: DAHLIA MARINO KATIA TAMEZ D.O. [id number] [age] F Status: DEP ER ED Date of Service: 05/08/18 CHIEF COMPLAINT A 47-year-old female. Chief complaint: Vaginal problem. HISTORY OF PRESENT ILLNESS The patient says she has had a recurrent yeast infection. She has had a discolored discharge. She has had a hysterectomy. 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 No other complaints. No abdominal pain, just [...] I am going to refer her to PICU NURSE for followup. <Electronically signed by KATIA TAMEZ D.O.> 05/12/18 0538 KATIA TAMEZ D.O. cc: KATIA TAMEZ D.O. << Signature on File>> Reported By: KATIA TAMEZ D.O. Signed By: KATIA TAMEZ D.O. Tests performed at: [address] [address] ED PROV NOTE Observed: 05/11/2018 Status: COMPLETED Source: [place] 4:14 PM [facility] REPOSITORY HNO ID: [id number] Author: Katia Tamez Service: (none) Author Type: Physician Type: ED Provider Notes Filed: 06/23/2018 9:00 PM Note Text: [place] [address] HEALTH INFORMATION MANAGEMENT EMERGENCY DEPARTMENT REPORT Patient: DAHLIA MARINO KATIA TAMEZ D.O. [id number] [age] F Status: [facility] ER ED Date of Service: 05/08/18 CHIEF COMPLAINT A 47-year-old female. Chief complaint: Vaginal problem. HISTORY OF PRESENT ILLNESS The patient says she has had a recurrent yeast infection. She has had a discolored discharge. She has had a hysterectomy. 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 No other complaints. No abdominal pain, just [...] I am going to refer her to PICU NURSE for followup. <Electronically signed by KATIA TAMEZ D.O.> 05/12/18 0538 KATIA TAMEZ D.O. cc: KATIA TAMEZ D.O. << Signature on File>> Reported By: KATIA TAMEZ D.O. Signed By: KATIA TAMEZ D.O. Tests performed at: [address] [address] Observed: 05/08/2018 Status: F Source: [facility] WET PREP 3:09 AM HOSPITAL REPOSITORY WET PREP FEW EPITHELIAL CELLS MANY WBC'S FEW RBC'S NEGATIVE FOR YEAST NEGATIVE FOR TRICHOMONAS Performed By: #### [id number] #### [facility] [address] [place] [address] EMERGENCY REPORT Observed: 01/09/2018 Status: F Source: [facility] 7:13 PM [facility] REPOSITORY [facility] EM[facility] REPORT NAME ACCOUNT SEX AGE ADMIT DISCHARGE PT MED. RECORD# NUMBER DATE DATE TYPE DAHLIA MARINO [id number] F 47 12/28/17 12/28/17 3 R [id number] ROOM: ER DATE OF : 1970 DICTATING [...] the coronary arteries by Dr. Haque in [place]. She states that she has had an [...] sinus mechanism without an evidence of acute SD. Rate was 93 and this was done [...] thankful for the care. Dictated By: Mor Doulgass DO 12/28/17 06:44 JOB #: [id number] Transcribed By: sp 12/29/17 05:54 Electronically signed by: E-SIGN MOR RAFAT ARSHAD 01/09/18 19:10 Page 2 of 2 NED DAHLIA R Emergency Room Report CBC Collected: 12/28/2017 Status: F Source: [facility] 4:10 AM [facility] REPOSITORY TYPE CODE TESTS RESULT OUT [...] x10EE3/U L Neut # High 10.70 LAB [place] #(LOINC) 0.20 - 1.00 x10EE3/U L [place] # 0.50 LAB EO #(LOINC) 0.00 - 0.50 x10EE3/U L EO # 0.10 LAB Baso #(LOINC) 0.00 - 0.10 x10EE3/U L Baso # 0.00 LAB MANUAL DIFF(LOINC) MANUAL DIFF N/A LAB MORPHOLOGY(LOINC ) MORPHOLOGY N/A Result Comment: {CD] Performed By: #### [id number] #### [facility],[address] [place] [address] CMP WITH EGFR Collected: 12/28/2017 Status: F Source: [facility] 4:10 AM [facility] REPOSITORY TYPE CODE TESTS RESULT OUT [...] OF AGE AND OLDER. Performed By: #### [id number] #### [place] [address] LIPASE Collected: 12/28/2017 Status: F Source: [facility] 4:10 [facility] REPOSITORY TYPE CODE TESTS RESULT OUT OF REFERENCE UNITS RANGE LAB LIPASE(LOIN 18.0 - 51.0 U/L C) LIPASE 25.0 Performed By: #### 786529 #### [place] [address] TROPONIN Collected: 12/28/2017 Status: F Source: [facility] 4:10 [facility] REPOSITORY TYPE CODE TESTS RESULT OUT OF [...] such as heterophile antibodies). Performed By: #### 468581 #### [place] [id number] ALLERGIES ALLERGIES DATE TYPE / NAME / CODE REACTION SEVERITY SOURCE CODE 08/29/2018 Drug doxycycline/[id number] Other Unknown [place] Allergy/41 748(RXNORM) [facility] [id number]([facility]) Repository 08/29/2018 Drug erythromycin Hives Unknown [place] Allergy/41 base/[id number](RXN Community 5648241(SN ORM) [facility]) Repository 08/29/2018 Drug metronidazole/F0060 Other Unknown [place] Allergy/41 [address](RXNORM) [facility] 1669969([facility]) Repository 07/01/2018 DRUG DOXYCYCLINE SHORTNESS OF [place] INGREDI/41 Clinic Other 0350066([facility]MED [facility]) Repository 07/01/2018 DRUG METRONIDAZOLE INTOLERANCE [place] INGREDI/41 Clinic Other 4964454([facility]MED CT) Repository 07/01/2018 DRUG AZITHROMYCIN SHORTNESS OF High [place] INGREDI/41 Clinic Other 8658091([facility] OME CT) Repository NG/3869517 DOXYCYCLINE [facility] 06([facility]) Repository NG/4417394 METRONIDAZOLE [facility] 06([facility]) Repository NG/2791127 AZITHROMYCIN [facility] 06([facility]) Repository Drug DOXYCYCLINE/5912553 Moderate [place] Allergy/41 0(RXNORM) ([facility] 1381837(SN Modifier) [facility]) (Qualifier Repository Value) Drug FLAGYL/17069227(RXN Moderate [place] Allergy/41 ORM) ([facility] 8963363(SN Modifier) [facility]) (Qualifier Repository Value) Drug ERYTHROMYCIN/985210 Moderate [place] Allergy/41 26(RXNORM) ([facility] 7071174(SN Modifier) [facility]) (Qualifier Repository Value) ENCOUNTERS ENCOUNTERS ADMIT/DISCHARGE ACCOUNT NUMBER ADMITTING ENCOUNTER LOCATION SOURCE CLASS 09/06/2018 [id number] [facility] ding:MEDOUTP Repository 09/05/2018 [id number] Ambulatory [facility] ding:MEDOUTP Repository 09/05/2018 [id number] [facility] Repository 09/04/2018/09/04/[id number] ding:MEDOUTP Repository 09/03/2018/09/03/[id number] ding:MEDOUTP Repository 09/02/[id number] [facility] Repository 09/01/2018 [id number] Ambulatory [place] [facility] ding:MED[facility]P Repository 09/01/2018 [id number] Emergency [facility] [place] [address] ERRoom: System [id number]: Repository [id number] 09/01/2018 [id number] Ambulatory [facility] Repository 08/31/2018 [id number] Ambulatory [place] [facility] ding:MED[facility]P Repository 08/30/2018 [id number] Ambulatory Samara Samara [facility] ding:MED[facility]P Repository 08/30/2018 [id number] Ambulatory [facility] System Repository 08/29/2018 [id number] Ambulatory [place] [facility] ding:MED[facility]P Repository 08/28/2018/08/28/19 [id number] Ambulatory [place] Samara 19 [facility] ding:MEDOUTP Repository 08/27/2018/08/27/19 [id number] Ambulatory [place] 19 [facility] ding:MED[facility]P Repository 08/26/2018 [id number] Ambulatory [place] [facility] ding:MED[facility]P Repository 08/25/2018 [id number] Ambulatory [place] Samara [facility] ding:MED[facility]P Repository 08/25/2018 [id number] Ambulatory [facility] System Repository 08/24/2018 [id number] Ambulatory [place] [facility] ding:MEDOUTP Repository 08/23/2018/08/23/19 [id number] Ambulatory [place] Samara 19 [facility] ding:MEDOUTP Repository 08/22/2018 [id number] Ambulatory [place] Samara [facility] ding:MED[facility]P Repository 08/21/2018/08/21/20 [id number] Ambulatory [place] Samara 18 [facility] ding:MEDOUTP Repository 08/20/2018/08/20/20 [id number] Ambulatory Samara [place] 18 [facility] ding:MEDOUTP Repository 08/19/2018 [id number] Ambulatory Samara Sam[place] [facility] ding:MEDOUTP Repository 08/18/2018 [id number] Ambulatory [place] [facility] ding:MEDOUTP Repository 08/17/2018 [id number] Ambulatory [place] [facility] ding:MEDOUTP Repository 08/16/2018/08/16/20 [id number] Ambulatory [place] 18 [facility] ding:MEDOUTP Repository 08/15/2018 [id number] Ambulatory [place] [facility] ding:MEDOUTP Repository 08/14/2018/08/14/20 [id number] Ambulatory [place] 18 [facility] ding:MEDOUTP Repository 08/13/2018/08/13/20 [id number] Ambulatory [place] 18 [facility] ding:MEDOUTP Repository 08/12/2018 [id number] Ambulatory [place] Samara [facility] ding:MEDOUTP Repository 08/11/2018 [id number] Ambulatory [place] Samara [facility] ding:MEDOUTP Repository 08/10/2018 [id number] Ambulatory [place] [facility] ding:MEDOUTP Repository 08/09/2018 [id number] Ambulatory [place] [facility] ding:MEDOUTP Repository 08/08/2018 [id number] Ambulatory Samara Samara [facility] ding:MEDOUTP Repository 08/07/2018/08/07/20 [id number] Ambulatory [place] 18 [facility] ding:MEDOUTP Repository 08/06/2018/08/06/20 [id number] Ambulatory [place] Samara 18 [facility] ding:MEDOUTP Repository 08/05/2018 [id number] Ambulatory [place] Samara [facility] ding:MEDOUTP Repository 08/04/2018 [id number] Ambulatory [place] Sam[place] [facility] ding:MEDOUTP Repository 08/04/2018 [id number] Ambulatory [facility] Repository 08/04/2018 [id number] Ambulatory [facility] Repository 08/03/2018 [id number] [facility] [place] [facility] ding:[facility] Repository 08/02/2018 [id number] [facility] [place] [facility] ding:MED[facility]P Repository 08/01/2018 [id number] [facility] ding:MED[facility]P Repository 07/31/2018/07/31/20 [id number] Ambulatory [place] [address] [place] [place] [address] [facility] ding:MEDOUTP Repository 07/30/2018/07/30/20 [id number] Ambulatory [place] [address] [place] [address] [facility] ding:MEDOUTP Repository Room: [facility] 07/29/2018 [id number] [facility] ding:MEDOUTP Repository 07/29/2018 [id number] Ambulatory [facility] Repository 07/28/2018 [id number] [facility] [place] [facility] ding:MED[facility]P Repository 07/27/2018 [id number] [facility]ulatory [place] [facility] ding:MEDOUTP Repository 07/26/2018 [id number] [facility] ding[facility] Repository 07/26/2018 [id number] Ambulatory [facility] Repository 07/25/2018 [id number] [facility] ding:MED[facility]P Repository 07/24/2018/07/24/20 [id number] Ambulatory Samara Samara [address] [place] [address] [facility] ding:MEDOUTP Repository 07/23/2018/07/23/20 [id number] Ambulatory Samara Samara [address] [place] [address] [facility] ding:MEDOUTP Repository 07/22/2018 [id number] [facility] ding:MED[facility]P Repository 07/21/2018 [id number] [facility] ding:MED[facility]P Repository 07/17/2018 [id number] [facility]patient [facility] 4NRoom: System [id number]: Repository [id number] 07/02/2018 [id number] Inpatient [facility] Encounter 6WRoom: System 6B3502Mwl: Repository [id number] 07/01/2018/07/02/20 [id number] [place], Inpatient [place] 18 [place]OPE Encounter Clinic Other [place] Repository 07/01/2018/07/02/20 [id number] [place], Inpatient AKRON [facility] 18 P[place]ELOPE Encounter [facility] MEDICAL Repository CENTERBuildi nRoom: 7121Bed: 06/30/2018/07/01/20 [id number] CHRISTINA, Emergency Buildin[address] [place] [address] 18 DOROTEO D Room: ERBed: [facility] Repository 05/08/2018/05/08/20 [id number] Emergency UNIBuilding: [address] Repository 12/28/2017/12/29/19 [id number] RAFAT, Emergency Buildin[address] [place] [address] 18 MOR DO Room: ERBed: [facility] Repository PAYERS PAYERS ENCOUNTER GUARANTOR 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 SOURCE 09/06/2018 DAHLIA [place]ath[place] Primary Insurance:SELF NOT GIVENUNK [facility] Number: Effective [place] Date:2018-08-30 Repository [address]Dnf: () 09/05/2018 DAHLIA R Primary Insurance:SELF NOT [facility]IVENUNK [facility] Number: Effective [place] Date:2018-08-30 Repository [address]Tlw: () 09/05/2018 Dahlia Primary Dahlia NedDOB[facility] BarkesDOB: Insurance:MedicarePoli [id number] System cy Number: Effective [facility] Date: [place], [place] [address]Wxx: () 09/05/2018 Secondary Dahlia BarkesDOB: [facility] Insurance:MedicarePoli [id number] System cy Number: Effective Repository Date: 09/05/2018 Tertiary Dahlia BarkesDOB: [facility] Insurance:Self [id number] System PayPolicy Number: Repository Effective Date: 09/04/2018 DAHLIA R Primary Insurance:SELF NOT GIVENUNK [place] [id number] [facility]Y [facility] Number: Effective [place] Date:2018-08-30 Repository [address]Miv: (HP) 09/03/2018 DAHLIA R Primary Insurance:SELF NOT GIVENUNK [place] [id number] [facility]Y [facility] Number: Effective [place] Date:2018-08-30 Repository [address]Uvm: (HP) 09/02/2018 DAHLIA R Primary Insurance:SELF NOT GIVENUNK [place] [id number] [facility]Y [facility] Number: Effective [place] Date:2018-08-30 Repository [address]Kze: (HP) 09/01/2018 DAHLIA R Primary Insurance:SELF NOT GIVENUNK [place] [id number] [facility]Y [facility] Number: Effective [place] Date:2018-08-30 Repository [address]Zng: (HP) 09/01/2018 Dahlia Primary Dahlia BarkesDOB: [facility] BarkesDOB: Insurance:MedicarePoli [id number] System cy Number: Effective [facility] Date: [place], [place] [address]Txr: () 09/01/2018 Secondary Dahlia BarkesDOB: [facility] Insurance:Self [id number] System PayPolicy Number: Repository Effective Date: 09/01/2018 Dahlia Primary Dahlia BarkesDOB: [facility] BarkesDOB: Insurance:MedicarePoli [id number] System cy Number: Effective Repository [place] Date: [place], [place] [address]Zzc: (HP) 09/01/2018 Secondary Dahlia BarkesDOB: [facility] Insurance:Self [id number] System PayPolicy Number: Repository Effective Date: 08/31/2018 DAHLIA R Primary Insurance:SELF NOT GIVENUNK [place] [id number] [facility]Y [facility] Number: Effective [facility] Date:2018-08-30 Repository [address]Mbx: (HP) 08/30/2018 DAHLIA R Primary Insurance:SELF NOT GIVENUNK [place] [id number] [facility]Y [facility] Number: Effective [facility] Date:2018-08-24 Repository [address]Tdg: (HP) 08/30/2018 Dahlia Primary Dahlia MarinoDOB: [facility] BarkesDOB: Insurance:MedicarePoli [id number] System cy Number: Effective [facility] Date: [facility] [place] [address]Hbf: (HP) 08/30/2018 Secondary Dahlia NancieB: [facility] Insurance:Self [id number] System PayPolicy Number: Repository Effective Date: 08/29/2018 DAHLIA R Primary Insurance:SELF NOT GIVENUNK [place] [id number] [facility]Y [facility] Number: Effective [facility] Date:2018-08-24 Repository [address]Dqv: (HP) 08/28/2018 DAHLIA R Primary Insurance:SELF NOT GIVENUNK [place] [id number] [facility]Y [facility] Number: Effective [facility] Date:2018-08-24 Repository [address]Mrw: (HP) 08/27/2018 DAHLIA R Primary Insurance:SELF NOT GIVENUNK [place] [id number] [facility]Y [facility] Number: Effective [facility] Date:2018-08-24 Repository [address]Nio: (HP) 08/26/2018 DAHLIA R Primary Insurance:SELF NOT GIVENUNK [place] [id number] [facility]Y [facility] Number: Effective [facility] Date:2018-08-24 Repository [address]Ibu: (HP) 08/25/2018 DAHLIA R Primary Insurance:SELF NOT GIVENUNK [place] [id number] [facility]Y [facility] Number: Effective [facility] Date:2018-08-24 Repository [address]Jvu: (HP) 08/25/2018 Dahlia Primary Dahlia MarinoB: [facility] BarkjenyDOB: Insurance:MedicarePoli [id number] System cy Number: Effective [facility] Date: [place], [place] [address]Wxr: (HP) 08/25/2018 Secondary Dahlia MarinoB: [facility] Insurance:Self [id number] System PayPolicy Number: Repository Effective Date: 08/24/2018 DAHLIA R Primary Insurance:SELF NOT GIVENUNK [place] [id number] [facility]Y [facility] Number: Effective [facility] Date:2018-08-22 Repository [address]Lms: (HP) 08/23/2018 DAHLIA R Primary Insurance:SELF NOT GIVENUNK [place] [id number] [facility]Y [facility] Number: Effective [facility] Date:2018-08-09 Repository [address]Iay: (HP) 08/22/2018 DAHLIA R Primary Insurance:SELF NOT GIVENUNK [place] [id number] [facility] Number: Effective [facility] Date:2018-08-22 Repository 12783Mxj: (HP) 08/21/2018 DAHLIA R Primary Insurance:SELF NOT GIVENUNK [place] [id number] [facility]Y [facility] Number: Effective [facility] [place] Date:2018-08-09 Repository 68889Usr: (HP) 08/20/2018 DAHLIA R Primary Insurance:SELF NOT GIVENUNK [place] [id number] [facility]Y [facility] Number: Effective [facility] [place] Date:2018-08-09 Repository 06538Ogf: (HP) 08/19/2018 DAHLIA R Primary Insurance:SELF NOT GIVENUNK [place] [id number] PAY [facility] Number: Effective [facility] [place] Date:2018-08-09 Repository 81951Ekj: (HP) 08/18/2018 DAHLIA R Primary DAHLIA R [place] [id number] Insurance:MEDICARE A BARKESDOB: [facility] Number: [id number] [id number] Repository 86563Gts: 330) Date:2018-08-09 [phone] (HP) 08/18/2018 Secondary NOT GIVENUNK [place] Insurance:SELF PAY [facility] Number: Effective Repository Date:2018-08-09 08/17/2018 DAHLIA R Primary DAHLIA R [place] [id number] Insurance:MEDICARE A BARKESDOB: [facility] Number: [id number] [id number] Repository 66808Xrg: (300) Date:2018-08-09 [phone] (HP) 08/17/2018 Secondary NOT GIVENUNK [place] Insurance:SELF PAY [facility] Number: Effective Repository Date:2018-08-09 08/16/2018 DAHLIA R Primary DAHLIA R [place] [id number] Insurance:MEDICARE A BARKESDOB: [facility] Number: [id number], [place] [id number] Repository 55319Rks: (330) Date:2018-08-09 [phone] (HP) 08/16/2018 Secondary NOT GIVENUNK [place] Insurance:SELF PAY [facility] Number: Effective Repository Date:2018-08-09 08/15/2018 DAHLIA R Primary Insurance:SELF NOT GIVENUNK [place] [id number] PAY [facility] Number: Effective [place], [place] Date:2018-08-09 Repository 19944Iay: (HP) 08/14/2018 DAHLIA R Primary Insurance:SELF NOT GIVENUNK [place] [id number] [facility]Y [facility] Number: Effective [place] Date:2018-08-09 Repository 48076Tmz: (HP) 08/13/2018 DAHLIA R Primary Insurance:SELF NOT GIVENUNK [place] [id number] PAY [facility] Number: Effective [facility]:2018-08-09 Repository 39998Zul: () 08/12/2018 DAHLIA R Primary Insurance:SELF NOT GIVENUNK [place] [id number] PAY [facility] Number: Effective [facility] Date:2018-08-09 Repository 28757Gnm: () 08/11/2018 DAHLIA R Primary Insurance:SELF NOT GIVENUNK [place] [id number] PAY [facility] Number: Effective [facility] Date:2018-08-09 Repository 51937Vod: () 08/10/2018 DAHLIA R Primary Insurance:SELF NOT GIVENUNK [place] [id number] PAY [facility] Number: Effective [facility] Date:2018-07-26 Repository 84849Vht: () 08/09/2018 DAHLIA R Primary Insurance:SELF NOT GIVENUNK [place] [id number] PAY [facility] Number: Effective [facility] Date:2018-07-26 Repository 23570Idn: () 08/08/2018 DAHLIA R Primary Insurance:SELF NOT GIVENUNK [place] [id number] PAY [facility] Number: Effective [facility] Date:2018-07-26 Repository 03431Pzv: () 08/07/2018 DAHLIA R Primary Insurance:SELF NOT GIVENUNK [place] [id number] PAY [facility] Number: Effective [facility] [place] Date:2018-07-26 Repository 91345Glr: () 08/06/2018 DAHLIA R Primary Insurance:SELF NOT GIVENUNK [place] [id number] PAY [facility] Number: Effective [facility] Date:2018-07-26 Repository 35601Rbd: (HP) 08/05/2018 DAHLIA R Primary Insurance:SELF NOT GIVENUNK [place] [id number] PAY [facility] Number: Effective [place] Date:2018-07-26 Repository 04798Xhb: (HP) 08/04/2018 DAHLIA R Primary Insurance:SELF NOT GIVENUNK [place] [id number] PAY [facility] Number: Effective [place] Date:2018-07-26 Repository 75262Lwp: (HP) 08/04/2018 Dahlia Primary Dahlia BarkesDOB: [facility] BarkesDOB: Insurance:MedicarePoli [id number] System cy Number: Effective [facility] Date: [place], [place] [address]Dna: () 08/04/2018 Secondary Dahlia BarkesDOB: [facility] Insurance:Self [id number] System PayPolicy Number: Repository Effective Date: 08/04/2018 Dahlia Primary Dahlia BarkesDOB: [facility] BarkesDOB: Insurance:MedicarePoli [id number] System cy Number: Effective [facility] Date: [place], [place] [address]Dwk: () 08/04/2018 Secondary Dahlia BarkesDOB: [facility] Insurance:Self [id number] System PayPolicy Number: Repository Effective Date: 08/03/2018 DAHLIA R Primary Insurance:SELF NOT GIVENUNK [place] [id number] PAY [facility] Number: Effective [facility] [place] Date:2018-07-26 Repository 88667Esf: (HP) 08/02/2018 DAHLIA R Primary Insurance:SELF NOT GIVENUNK [place] [id number] PAY [facility] Number: Effective [facility] [place] Date:2018-07-26 Repository 82096Dys: () 08/01/2018 DAHLIA R Primary DAHLIA R [place] [id number] Insurance:MEDICARE A BARKESDOB: [facility] ONLYPolicy Number: [id number], [place] [id number] Repository 73335Bmg: (330) Date:2018-07-26 [phone] (HP) 08/01/2018 Secondary NOT GIVENUNK [place] Insurance:SELF PAY [facility] Number: Effective Repository Date:2018-07-26 07/31/2018 DAHLIA Hathaway Primary DAHLIA Hathaway [place] [id number] Insurance:MEDICARE A BARKESDOB: [facility] ONLYPolicy Number: [id number], [place] [id number] Repository 84924Vte: (330) Date:2018-07-26 [phone] (HP) 07/31/2018 Secondary NOT GIVENUNK [place] Insurance:SELF PAY [facility] Number: Effective Repository Date:2018-07-26 07/30/2018 DAHLIA Hathaway Primary DAHLIA Hathaway [place] [id number] Insurance:MEDICARE A BARKESDOB: [facility] Number: [id number], [place] [id number] Repository 13109Apa: (330) Date:2018-07-26 [phone] () 07/30/2018 Secondary NOT GIVENUNK [place] Insurance:SELF PAY [facility] Number: Effective Repository Date:2018-07-26 07/29/2018 DAHLIA Hathaway Primary DAHLIA Hathaway [place] [id number] Insurance:MEDICARE A BARKESDOB: [facility] Number: [id number], [place] [id number] Repository 80745Xlz: (330) Date:2018-07-26 [phone] (HP) 07/29/2018 Secondary NOT GIVENUNK [place] Insurance:SELF PAY [facility] Number: Effective Repository Date:2018-07-26 07/29/2018 Dahlia Villagomez BarkesDOB: [facility] BarkesDOB: Insurance:MedicarePoli [id number] System cy Number: Effective Repository [place] Date: [place], [place] [address]Vth: (HP) 07/28/2018 DAHLIA R Primary DAHLIA R [place] [id number] Insurance:MEDICARE A BARKESDOB: [facility] ONLYPolicy Number: [id number], [place] [id number] Repository 68974Whz: (330) Date:2018-07-26 [phone] (HP) 07/28/2018 Secondary NOT GIVENUNK [place] Insurance:SELF PAY [facility] Effective Repository Date:2018-07-26 07/27/2018 DAHLIA R Primary Insurance:SELF NOT GIVENUNK [place] [id number] [facility]Y [facility] Number: Effective [place] Date:2018-07-26 Repository 16958Lht: (HP) 07/26/2018 DAHLIA R Primary DAHLIA R [place] [id number] Insurance:MEDICARE A BARKESDOB: [facility] Number: [id number], [place] [id number] Repository 70223Ycv: (330) Date:2018-07-26 [phone] (HP) 07/26/2018 Secondary NOT GIVENUNK [place] Insurance:SELF PAY [facility] Number: Effective Repository Date:2018-07-26 07/26/2018 Dahlia Primary Dahlia BarkesDOB: [facility] BarkesDOB: Insurance:MedicarePoli [id number] System cy Number: Effective [facility] Date: [place], [place] [address]Ptl: (HP) 07/26/2018 Secondary Dahlia BarkesDOB: [facility] Insurance:Self [id number] System PayPolicy Number: Repository Effective Date: 07/25/2018 DAHLIA R Primary DAHLIA R [place] [id number] Insurance:MEDICARE A BARKESDOB: [facility] Number: [id number], [place] [id number] Repository 85872Tgb: (330) Date:2018-07-20 [phone] () 07/25/2018 Secondary NOT GIVENUNK [place] Insurance:SELF PAY [facility] Number: Effective Repository Date:2018-07-20 07/24/2018 DAHLIA R Primary DAHLIA R [place] [id number] Insurance:MEDICARE A BARKESDOB: [facility] Number: [id number] [place], [place] [id number] Repository 72680Wrh: (249) Date:2018-07-20 [phone] (HP) 07/24/2018 Secondary NOT GIVENUNK [place] Insurance:SELF PAY [facility] Number: Effective Repository Date:2018-07-20 07/23/2018 DAHLIA R Primary Insurance:SELF NOT GIVENUNK [place] [id number] PAY [facility] Number: [place] Date:2018-07-20 Repository 46713Gpz: (HP) 07/22/2018 DAHLIA R Primary Insurance:SELF NOT GIVENUNK [place] [id number] PAY [facility] Number: [place] Date:2018-07-20 Repository 49745Nrl: (HP) 07/21/2018 DAHLIA R Primary Insurance:SELF NOT GIVENUNK [place] [id number] PAY [facility] Number: [place] Date:2018-07-20 Repository 14105Zhb: (HP) 07/17/2018 Dahlia Primary Dahlia BarkesDOB: [facility] BarkesDOB: Insurance:MedicarePoli [id number] System cy Number: Effective Repository [place] Date: [place], [place] [address]Lyw: (HP) 07/02/2018 [facility] Primary Dahlia BarkesDOB: [facility] BarkesDOB: Insurance:MedicarePoli [id number] System cy Number: Effective [facility] Date: [place], [place] [address]Loq: (HP) 07/02/2018 Secondary Dahlia BarkesDOB: [facility] Insurance:Self [id number] System PayPolicy Number: Repository Effective Date: 07/01/2018 DAHLIA R Primary [facility]IA R [facility]:MEDICARE BARKESDOB: [facility] APolicy Number: [id number] Repository [place] [id number] [place], [place] Date: [address]Mmt: () 06/30/2018 DAHLIA R Primary DAHLIA R Kashiflucinda Bennettzeinab BARKESDOB: Insurance:MEDICARE BARKESDOB: [facility] [id number] [facility] Number: [place] Repository [place] [id number] [place] [id number]: Date:Plan Name: [id number] () 05/08/2018 DAHLIA R Primary DAHLIA R [facility] [id number] Insurance:MEDICARE BARKESUNK [facility] [place] [facility] Repository [place], [place] Number: [id number]: (185) [id number] [phone] (HP) Date: 12/28/2017 DAHLIA R Primary DAHLIA R Kashiflucinda Bennettzeinab BARKDOB: Insurance:MEDICARE BARKESDOB: [facility] [id number] [place] [address] Number: [place] Repository [place], [place] [id number] [place] [id number]: Date:Plan Name: [id number] ()
== END ==
LOC: MEDOUTP 13:40
PROVIDERS: Referring Provider Internal Medicine Infectious Disease; Visit Provider Internal Medicine Infectious Disease
DX: K65.1 Peritoneal abscess (principal)
CPT/HCPCS: 96365; J7050; A4216

== ENCOUNTER → 2018-08-03 13:48 | Outpatient (CLI) | payer SELFPAY ==
[2018-07-26 13:51] VITALS: BMI 24.3
[2018-08-02 14:16] VITALS: BMI 24.3
[2018-08-03 14:15] VITALS: BP 117/60; PULSE 86; RESP 16; TEMP 36.6; O2SAT 98; BMI 24.3
[2018-08-03 14:36] LABS: Absolute Lymphocyte Count 1.92 X10^3/ul (0.83-4.51); Absolute Neutrophil Count 5.4 X10^3/uL (2.0-7.7); Basophil# 0.04 X10^3/uL; Basophil% 0.5 % (0-1); Eosinophil# 0.12 X10^3/uL; Eosinophils% 1.5 % (0-5); Hematocrit 29.9 % (37-47); Hemoglobin 9.6 g/dl (12.0-15.0); Lymphocyte # 1.92 X10^3/ul (4.0); Lymphocyte % 23.8 % (19-41); Mean Corp Hgb Conc 32.1 g/gl (32-36); Mean Corpuscular Hgb 30.6 pg (27.0-32.0); Mean Corpuscular Volume 95.2 fL (81-99); Mean Platelet Vol. 8.3 fl (6.2-12.0); Monocyte# 0.59 X10^3/uL; Monocyte% 7.3 % (0-10); Neutrophil # 5.39 X10^3/uL (2.7-7.7); Neutrophil % 66.8 % (47-70); POSITIVE COUNT NO; POSITIVE DIFFERENTIAL NO; POSITIVE MORPHOLOGY NO; Platelet Count 371 K/mm3 (150-450); RBC Distribution Width CV 13.3 % (11.6-14.6); RBC Distribution Width SD 46.1 fl (35.1-43.9); Red Blood Count 3.14 M/mm3 (4.2-5.4); White Blood Count 8.1 K/mm3 (4.4-11.0)
[2018-08-03 15:25] LABS: ALB/GLOB Ratio 0.6 RATIO (0.9-2.4); AST(SGOT) 7 U/L (15-37); Alanine Aminotransfer ALT/SGPT 10 U/L (13-56); Albumin, Serum 2.6 g/dL (3.2-5.0); Alkaline Phosphatase 78 U/L (45-117); Anion Gap 9 (5-15); BUN 5 mg/dL (7-18); BUN/Creat Ratio 10.7 RATIO (10-20); Calcium,Total 8.2 mg/dL (8.5-10.1); Chloride 109 mmol/L (98-107); Creatinine, Serum 0.47 mg/dL (0.55-1.02); EST Glomerular Filtration Rate 150 mL/min (>60); Est Glom Filt Rate - Afr Amer 182 mL/min (>60); Estimated Creatinine Clearance 125.03 ml/min; Globulin 4.4 g/dL (2.2-4.2); Glucose 101 mg/dL (74-106); Potassium 2.7 mmol/L (3.5-5.1); Sodium Level 146 mmol/L (136-145)
--- OUTSIDE RECORDS SUMMARY | 2018-09-19 17:43 | XMS RPT_ITS ---
:1970 Author Organization OHIP Support Name Relationship Address Phone NILDA MARINOT Unavailable [address] [place] [address] + [place] [address] BROWN, DINAH Unavailable Unavailable + D Unavailable Unavailable Unavailable BARKES, MARS Unavailable [address] + [place] [address] BROWN, DINAH Unavailable Unavailable + D Unavailable Unavailable Unavailable Barkes, Mars Unavailable Unavailable + Brown, Dinah Unavailable Unavailable + BARKES, MARS Unavailable [address] + [place] [address] BROWN, DINAH Unavailable Unavailable + D Unavailable Unavailable Unavailable BARKES, MARS Unavailable [address] + [place] [address] BROWN, DINAH Unavailable Unavailable + D Unavailable Unavailable Unavailable BARKES, MARS Unavailable [address] + [place] [address] BROWN, DINAH Unavailable Unavailable + D Unavailable Unavailable Unavailable BARKES, MARS Unavailable [address] + [place] [address] BROWN, DINAH Unavailable Unavailable + D Unavailable Unavailable Unavailable Barkes, Mars Unavailable Unavailable + Brown, Dinah Unavailable Unavailable + Barkes, Mars Unavailable Unavailable + Brown, Dinah Unavailable Unavailable + BARKES, MARS Unavailable [address] + [place] [address] BROWN, DINAH Unavailable Unavailable + D Unavailable Unavailable Unavailable BARKES, MARS Unavailable [address] + [place] [address] BROWN, DINAH Unavailable Unavailable + D Unavailable Unavailable Unavailable Barkes, Mars Unavailable Unavailable + Brown, Dinah Unavailable Unavailable + BARKES, MARS Unavailable [address] + [place] [address] BROWN, DINAH Unavailable Unavailable + D Unavailable Unavailable Unavailable BARKES, MARS Unavailable [address] + [place] [address] BROWN, DINAH Unavailable Unavailable + D Unavailable Unavailable Unavailable BARKES, MARS Unavailable [address] + [place] [address] BROWN, DINAH Unavailable Unavailable + D Unavailable Unavailable Unavailable BARKES, MARS Unavailable [address] + [place] [address] BROWN, DINAH Unavailable Unavailable + D Unavailable Unavailable Unavailable BARKES, MARS Unavailable [address] + [place] [address] BROWN, DINAH Unavailable Unavailable + D Unavailable Unavailable Unavailable Barkes, Mars Unavailable Unavailable + Brown, Dinah Unavailable Unavailable + BARKES, MARS Unavailable [address] + [place] [address] BROWN, DINAH Unavailable Unavailable + D Unavailable Unavailable Unavailable BARKES, MARS Unavailable [address] + [place] [address] BROWN, DINAH Unavailable Unavailable + D Unavailable Unavailable Unavailable BARKES, MARS Unavailable [address] + [place] [address] BROWN, DINAH Unavailable Unavailable + D Unavailable Unavailable Unavailable BARKES, MARS Unavailable [address] + [place] [address] BROWN, DINAH Unavailable Unavailable + D Unavailable Unavailable Unavailable BARKES, MARS Unavailable [address] + [place] [address] BROWN, DINAH Unavailable Unavailable + D Unavailable Unavailable Unavailable BARKES, MARS Unavailable [address] + [place] [address] BROWN, DINAH Unavailable Unavailable + D Unavailable Unavailable Unavailable BARKES, MARS Unavailable [address] + [place] [address] BROWN, DINAH Unavailable Unavailable + D Unavailable Unavailable Unavailable BARKES, MARS Unavailable [address] [facility] [address] + [place] [address] BROWN, DINAH Unavailable Unavailable + D Unavailable Unavailable Unavailable BARKES, MARS Unavailable [address] + [place] [address] BROWN, DINAH Unavailable Unavailable + D Unavailable Unavailable Unavailable BARKES, MARS Unavailable [address] + [place] [address] BROWN, DINAH Unavailable Unavailable + D Unavailable Unavailable Unavailable BARKES, MARS Unavailable [address] + [place] [address] BROWN, DINAH Unavailable Unavailable + D Unavailable Unavailable Unavailable BARKES, MARS Unavailable [address] + [place] [address] BROWN, DINAH Unavailable Unavailable + D Unavailable Unavailable Unavailable BARKES, MARS Unavailable [address] + [place] [address] BROWN, DINAH Unavailable Unavailable + D Unavailable Unavailable Unavailable BARKES, MARS Unavailable [address] + [place] [address] BROWN, DINAH Unavailable Unavailable + D Unavailable Unavailable Unavailable BARKES, MARS Unavailable [address] + [place] [address] BROWN, DINAH Unavailable Unavailable + D Unavailable Unavailable Unavailable BARKES, MARS Unavailable [address] + [place] [address] BROWN, DINAH Unavailable Unavailable + D Unavailable Unavailable Unavailable BARKES, MARS Unavailable [address] + [place] [address] BROWN, DINAH Unavailable Unavailable + D Unavailable Unavailable Unavailable BARKES, MARS Unavailable [address] + [place] [address] BROWN, DINAH Unavailable Unavailable + D Unavailable Unavailable Unavailable BARKES, MARS Unavailable [address] + [place] [address] BROWN, DINAH Unavailable Unavailable + D Unavailable Unavailable Unavailable BARKES, MARS Unavailable [address] + [place] [address] BROWN, DINAH Unavailable Unavailable + D Unavailable Unavailable Unavailable BARKES, MARS Unavailable [address] + [place] [address] BROWN, DINAH Unavailable Unavailable + D Unavailable Unavailable Unavailable Barkes, Mars Unavailable Unavailable + Brown, Dinah Unavailable Unavailable + Barkes, Mars Unavailable Unavailable + Brown, Dinah Unavailable Unavailable + BARKES, MARS Unavailable [address] + [place] [address] BROWN, DINAH Unavailable Unavailable + D Unavailable Unavailable Unavailable BARKES, MARS Unavailable [address] + [place] [address] BROWN, DINAH Unavailable Unavailable + D Unavailable Unavailable Unavailable BARKES, MARS Unavailable [address] + [place] [address] BROWN, DINAH Unavailable Unavailable + D Unavailable Unavailable Unavailable BARKES, MARS Unavailable [address] + [place] [address] BROWN, DINAH Unavailable Unavailable + D Unavailable Unavailable Unavailable BARKES, MARS Unavailable [address] + [place] [address] BROWN, DINAH Unavailable Unavailable + D Unavailable Unavailable Unavailable BARKES, MARS Unavailable [address] + [place] [address] BROWN, DINAH Unavailable Unavailable + D Unavailable Unavailable Unavailable Barkes, Mars Unavailable Unavailable + Brown, Dinah Unavailable Unavailable + BARKES, MARS Unavailable [address] + [place] [address] BROWN, DINAH Unavailable Unavailable + D Unavailable Unavailable Unavailable BARKES, MARS Unavailable [address] + [place] [address] BROWN, DINAH Unavailable Unavailable + D Unavailable Unavailable Unavailable BARKES, MARS Unavailable [address] + [place] [address] BROWN, DINAH Unavailable Unavailable + D Unavailable Unavailable Unavailable Barkes, Mars Unavailable Unavailable + Brown, Dinah Unavailable Unavailable + BARKES, MARS Unavailable [address] + [place] [address] BROWN, DINAH Unavailable Unavailable + D Unavailable Unavailable Unavailable BARKES, MARS Unavailable [address] [place] [address] ST + [place] [address] BROWN, DINAH Unavailable Unavailable + D Unavailable [...] Unavailable [address] + [place], [place] [id number] BARKES, MARS Unavailable Unavailable Unavailable NOT GIVEN Unavailable Unavailable Unavailable BARKES, LANCE Unavailable [address] + [place], [place] [id number] BARKES, MARS Unavailable Unavailable Unavailable NOT GIVEN Unavailable Unavailable Unavailable Care Team Providers Name Role Phone Mandapat, Daya Attending Unavailable Mandapat, Daya Referring [...] DO Primary Care Unavailable MARLO LANG MD Referring Unavailable MARLO LANG MD Consulting Unavailable PROVIDER, UNKNOWN Consulting Unavailable DOROTEO TABOR Admitting Unavailable DOROTEO TABOR Attending Unavailable MARLO LANG MD Referring Unavailable DOROTEO TABOR Primary Care Unavailable MARLO LANG MD Consulting Unavailable PROVIDER, UNKNOWN Consulting Unavailable PENELOPE PERSAUD Admitting Unavailable TETYUK, PENELOPE Attending Unavailable NICK [...] Primary Care Unavailable Arash Corado Attending Unavailable TETYUK, PENELOPE Admitting Unavailable TETYUK, PENELOPE Attending Unavailable Jan MCGOWAN Consulting Unavailable NICK MONTENEGRO Consulting Unavailable KATIA TAMEZ Consulting Unavailable PROBLEMS PROBLEMS DATE TYPE CONDITION / CODE ATTENDING STATUS SOURCE 09/01/2018 Admitting Hypokalemia / Hashiguchi, Active [facility] Diagnosis E87.6(ICD-10) [facility] Repository 08/30/2018 Admitting 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, Active [employer] [employer] [facility]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 I, [facility] System unspecified / Repository G90.50(ICD-10) 08/30/2018 Admitting Personal history of Cullado, Active [facility] Diagnosis nicotine dependence [facility] / Z87.891(ICD-10) Repository 08/30/2018 Admitting Fibromyalgia / Cullado, Active [facility] Diagnosis M79.7(ICD-10) [facility] Repository 08/30/2018 Admitting Hypothyroidism, [place], Active [facility] Diagnosis unspecified / [facility] E03.9(ICD-10) Repository 08/30/2018 Admitting Presence of coronary Cullado, Active [facility] Diagnosis angioplasty implant [facility] and [...] 08/17/2018 Unknown K65.1 - Peritoneal Mandapat, Active [facility] abscess / [facility] K65.1(ICD-10) Hospital Repository 08/04/2018 Admitting Other ascites / Hashiguchi, Active [facility] Diagnosis R18.8(ICD-10) [facility] Repository 08/04/2018 Admitting Abnormal findings on Hashiguchi, Active [facility] dx imaging of oth [facility] body structures / Repository R93.89(ICD-10) 08/04/2018 Admitting Abnormal findings on Hashiguchi, Active [facility] Diagnosis dx imaging of prt [facility] digestive tract / Repository R93.3(ICD-10) 08/04/2018 Admitting Candidiasis of vulva Hashiguchi, Active [facility] Diagnosis and vagina / [facility] B37.3(ICD-10) Repository 08/04/2018 Admitting Crohn's disease of Hashiguchi, Active [facility] Diagnosis both small and lg [facility] int w oth Repository complication / K50.818(ICD-10) 07/26/2018 Admitting Encntr for f/u exam Hashiguchi, Active [facility] Diagnosis aft trtmt for cond [facility] oth than malig Repository neoplm / Z09(ICD-10) 07/17/2018 Admitting Peritoneal abscess / Zaugg, Active [facility] Diagnosis K65.1(ICD-10) System Repository 07/17/2018 Admitting Urinary tract Zaugg, Active [facility] Diagnosis infection, site not System specified / Repository N39.0(ICD-10) 07/17/2018 Admitting Hypomagnesemia / Zaugg, Active [facility] Diagnosis E83.42(ICD-10) System Repository 07/17/2018 Admitting Cutaneous abscess of Zaugg, Active [facility] Diagnosis abdominal wall / System L02.211(ICD-10) Repository 07/17/2018 Admitting Sepsis, unspecified Zaugg, Active [facility] Diagnosis organism / System A41.9(ICD-10) Repository 07/17/2018 Admitting Crohn's disease of Zaugg, Active [facility] Diagnosis both small and large System intestine w abscess Repository / K50.814(ICD-10) 07/17/2018 Admitting Postprocedural Zaugg, Active [facility] Diagnosis hypothyroidism / System E89.0(ICD-10) Repository 07/17/2018 Admitting Adverse effect of Zaugg, Active [facility] Diagnosis unsp systemic System antibiotic, init Repository encntr / T36.95XA(ICD-10) 07/17/2018 Admitting alf (current) Zaugg, Active [facility] Diagnosis use of systemic System steroids / Repository Z79.52(ICD-10) 07/02/2018 Admitting Crohn's disease, Oscar, [employer] Diagnosis unspecified, with [facility] abscess / Repository K50.914(ICD-10) 07/02/2018 Admitting Unspecified severe Oscar, [employer] [facility] Diagnosis protein-calorie [facility] malnutrition / Repository E43(ICD-10) 07/02/2018 Admitting Athscl heart disease Oscar, [employer]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 Repository / I25.10(ICD-10) 07/02/2018 Admitting Body mass index Oscar, Active [facility] Diagnosis (BMI) 24.0-24.9, [facility] adult / Repository Z68.24(ICD-10) 07/02/2018 Admitting Abnormal weight loss Oscar, Active [facility] Diagnosis / R63.4(ICD-10) [facility] Repository 07/02/2018 Admitting Elevated white blood Oscar, [employer] [facility] Diagnosis cell count, [facility] unspecified / Repository D72.829(ICD-10) 07/02/2018 Admitting Anemia, unspecified Oscar, Active [facility] Diagnosis / D64.9(ICD-10) [facility] Repository 07/01/2018 Active Unknown / TETYUK, Active [facility] UNK(Unknown) [facility] Other [facility] Repository 07/01/2018 Admitting Unknown / TETYUK, Active [facility] diagnosis UNK(Unknown) [facility] Repository 12/28/2017 Admitting Vomiting, OMLEY, 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 unspecified / DO [facility] R1110(ICD-10) Hospital Repository 12/28/2017 Principle Noninfective OMLEY, 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 gastroenteritis and [facility] colitis, unspecified Hospital / K529(ICD-10) Repository 12/28/2017 Secondary Crohn's disease, OMLEY, 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 unspecified, without [facility] complications / Hospital K5090(ICD-10) Repository 12/28/2017 Secondary Atherosclerotic OMLEY, 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[facility] [employer] 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 Repository angina pectoris / I2510(ICD-10) 12/28/2017 Secondary Presence of coronary OMLEY, 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 angioplasty implant [facility] and graft / Hospital Z955(ICD-10) Repository PROCEDURES PROCEDURES No Procedure Records FoundRESULTS RESULTS RF URETHROCYSTOGRAPHY Observed: 09/07/2018 Status: F Source: [facility] VOIDING 9:51 AM SYSTEM REPOSITORY Patient Name: DAHLIA MARINO Fluoroscopy Exam Date/Time 09/05/2018 10:14:33 EST Exam RF Urethrocystography Voiding Ordering Physician MD DEUCE, MICHELINE Gaspar Accession Number [id number] [facility]4 Codes 31922 () Reason For Exam concern for rectovaginal [...] W/DIFF, AUTOMATED Collected: 09/06/2018 Status: F Source: [place] 2:00 PM [facility] [place] TYPE CODE TESTS RESULT OUT OF [...] Lymph 1.55 Performed By: #### L100.0100 #### [facility] [address] [place], [address] COMPREHENSIVE METABOLIC Collected: 09/06/2018 Status: F Source: [place] PROFIL 2:00 PM [facility] TYPE CODE TESTS RESULT OUT OF [...] Normal 8 Performed By: #### L500.4050 #### [facility] [address] [place], [address] ED PROVIDER NOTE Observed: 09/01/2018 Status: F Source: [facility] 1:20 PM SYSTEM REPOSITORY This patient presented [...] W/DIFF, AUTOMATED Collected: 08/31/2018 Status: F Source: [place] 2:15 PM [facility] TYPE CODE TESTS RESULT OUT OF [...] Lymph 2.02 Performed By: #### L100.0100 #### [facility] [address] [place], [place], [address] COMPREHENSIVE METABOLIC Collected: 08/31/2018 Status: F Source: [facility] 2:15 PM [facility] TYPE CODE TESTS RESULT OUT OF [...] at: 14:58:02 08/31/2018 by: Jeannine Blount to [facility] LAB L501.5900 98-107 mmol/L High CL 108 LAB L501.6100 21.0-32.0 mmol/L Normal CO2 27.0 LAB L501.6200 5-15 Normal 8 GAP Performed By: #### L500.4050 #### [facility] [address] [place] [address]. [place], [address] Observed: 08/30/2018 Status: F Source: [facility] SURGICAL PATHOLOGY 8:22 AM SYSTEM REPOSITORY [id number] [facility] PATHOLOGY AND LABORATORY MEDICINE [address] [place] [address] FINAL SURGICAL PATHOLOGY REPORT NAME: DAHLIA MARINO : 1970 48 Y F ALTAF NO.: [id number] LOCATION: 1XEO PROCEDURE 08/30/2018 DATE: SURGEON: MICHELINE TRIPATHI MD RECEIVED 08/30/2018 DATE: ATTENDING: MICHELINE TRIPTAHI MD REPORT DATE: 09/01/2018 COPIES TO: DIAGNOSIS: [...] characteristics determined by the clinical laboratories of [facility]. They have not been cleared by [...] negativity on decalcified specimens. Professional Performing Location: [address] [address]. DEPARTMENT OF PATHOLOGY AND LABORATORY MEDICINE [place], [place] [address] RF SMALL BOWEL W/ Observed: 08/25/2018 Status: F Source: [facility] SERIAL FILMS 2:30 PM SYSTEM REPOSITORY Patient Name: DAHLIA MARINO Fluoroscopy Exam Date/Time 08/25/2018 13:09:43 EST Exam RF Small Bowel w/ Serial Films Ordering Physician MD DEUCE, MICHELINE Gaspar Accession Number [id number] CTP4 Codes 17360 () Reason For Exam Crohn's Disease, rt. [...] W/DIFF, AUTOMATED Collected: 08/24/2018 Status: F Source: [place] 2:23 PM [facility] TYPE CODE TESTS RESULT OUT OF [...] Lymph 2.16 Performed By: #### L100.0100 #### [facility] [address] [place], [place], [address] COMPREHENSIVE METABOLIC Collected: 08/24/2018 Status: F Source: [place] [facility] 2:23 PM [facility] TYPE CODE TESTS RESULT OUT OF [...] GAP 10 Performed By: #### L500.4050 #### [facility] [address] [place], [address] CBC W/DIFF, AUTOMATED Collected: 08/17/2018 Status: F Source: [place] 1:44 PM [facility] TYPE CODE TESTS RESULT OUT OF [...] Lymph 1.59 Performed By: #### L100.0100 #### [facility] [place], [address] COMPREHENSIVE METABOLIC Collected: 08/17/2018 Status: F Source: [place] 1:44 PM [facility] TYPE CODE TESTS RESULT OUT OF [...] GAP 8 Performed By: #### L500.4050 #### [facility] [address] [place], [place], [address] CBC W/DIFF, AUTOMATED Collected: 08/10/2018 Status: F Source: [place] 2:22 PM [facility] TYPE CODE TESTS RESULT OUT OF [...] Lymph 2.17 Performed By: #### L100.0100 #### [facility] [address] [place], [place], [address] COMPREHENSIVE METABOLIC Collected: 08/10/2018 Status: F Source: [facility] 2:22 PM [facility] TYPE CODE TESTS RESULT OUT OF [...] Normal 8 Performed By: #### L500.4050 #### [facility] [address] [facility] [place], [address] CT ABDOMEN/PELVIS W/ Observed: 08/04/2018 Status: F Source: [facility] CONTRAST 1:01 PM SYSTEM REPOSITORY Patient Name: DAHLIA MARINO CT Exam Date/Time 08/04/2018 12:09:[address] Abdomen/Pelvis w/ IV Contrast (IV Onl Ordering Physician MD MEDRANO DIANA Accession Number [id number] CPT4 Codes 09053 (CT Abdomen/Pelvis w/ IV Contrast (IV Onl), Q9967 (CT ISOVUE 370MG/[id number]) Reason For Exam RLQ phlegmon vs abscess [...] METABOLIC PANEL Collected: 08/04/2018 Status: F Source: [facility] 9:09 AM SYSTEM REPOSITORY TYPE CODE TESTS [...] Calcium 8.8 Performed By: #### BMP3 #### [employer] [address] [address] CBC W/DIFF, AUTOMATED Collected: 08/03/2018 Status: F Source: [place] 2:13 PM [facility] [place] TYPE CODE TESTS RESULT OUT OF [...] Lymph 1.92 Performed By: #### L100.0100 #### [facility] [address] [place], [place], [address] COMPREHENSIVE METABOLIC Collected: 08/03/2018 Status: F Source: [facility] 2:13 PM [facility] TYPE CODE TESTS RESULT OUT OF [...] 9 GAP Performed By: #### L500.4050 #### [facility] [address] [place] [address]. [place], [address] CBC W/DIFF, AUTOMATED Collected: 07/27/2018 Status: F Source: [place] 2:06 PM [facility] TYPE CODE TESTS RESULT OUT OF [...] Lymph 1.89 Performed By: #### L100.0100 #### [facility] [address] [place], [address] COMPREHENSIVE METABOLIC Collected: 07/27/2018 Status: F Source: [facility] 2:06 PM [facility] TYPE CODE TESTS RESULT OUT OF [...] Normal 7 Performed By: #### L500.4050 #### [facility] [address] [place], [address] CBC W/DIFF, AUTOMATED Collected: 07/21/2018 Status: F Source: [place] 2:35 PM [facility] TYPE CODE TESTS RESULT OUT OF [...] Lymph 1.50 Performed By: #### L100.0100 #### [facility] [address] [place], [place], [id number] COMPREHENSIVE METABOLIC Collected: 07/21/2018 Status: F Source: [facility] 2:35 PM [facility] TYPE CODE TESTS RESULT OUT OF [...] GAP 4 Performed By: #### L500.4050 #### [facility] [address] [place] [address]. [place], [address] CR CHEST PORTABLE Observed: 07/20/2018 Status: F Source: [facility] 6:44 PM SYSTEM REPOSITORY Patient Name: DAHLIA MARINO Diagnostic Radiology Exam Date/Time 07/20/2018 16:55:27 EST Exam CR Chest Portable Ordering Physician DO PINON KATHRYN C Accession Number [id number] CPT4 Codes 81642 () Reason For Exam Line placement Report [...] DISCHARGE SUMMARY Observed: 07/20/2018 Status: F Source: [facility] 1:18 PM SYSTEM REPOSITORY Attestation signed by [...] (bowel resections x8), hypothyroidism, FM. Presented to [facility] ED on 07/17/18 with worsening abdominal pain. Patient was admitted to [facility] ED in 07/10, discharged 07/04/18. During [...] follow up with her GI doctor in [place], urged her to set up a follow up appointment soon after discharge. ID placed infusion orders for [facility] in [place] with an appointment to start tomorrow. PROCEDURES: PICC placement CONSULTANTS: Interventional Radiology General Surgery Gastrointestinal Infectious Disease DISCHARGE MEDICATIONS: Dahlia Marino Home Medication Instructions MARLYN:[id number] Printed on:07/20/18 4797 Medication Information calcium-vitamin D (OSCAL) 250-125 MG-UNIT [...] Complexity: follow up within 7-14 calendar days (22927) [x] Severe Complexity: follow up within 7 calendar days ([address]) FOLLOW UP TESTING, PENDING RESULTS OR REFERRALS AT TRANSITIONAL CARE VISIT: CT of abdomen after 2-3 weeks of abx [x] Yes [] No RECOMMENDED NEXT STEPS: Please follow up with Dr. Langston at the [facility] at 10am on 07/26/2018. Please follow up with your GI doctor in [place]. Please follow up with Dr. Micheline Tripathi of general surgery at [phone] as soon as possible for a follow up appointment in two weeks . DISPOSITION: Home Follow up with Dr. Langston at the [facility] at 10am on 07/26/2018. INSTRUCTIONS [...] frame. TIFERON Collected: 07/20/2018 Status: F Source: [facility] 11:02 AM SYSTEM REPOSITORY TYPE CODE TESTS RESULT OUT OF REFERENCE UNITS RANGE LAB QTF Negative NA Quantiferon Negative Performed By: #### QTF #### [employer] [address] [place] [address] HEMOGRAM Collected: 07/20/2018 Status: F Source: [facility] 4:25 AM SYSTEM REPOSITORY TYPE CODE TESTS [...] By: #### HEMOG, BMP3M, MG3, PHOS3 #### [employer] [address] [place] [id number] BASIC METABOLIC PANEL Collected: 07/20/2018 Status: F Source: [facility] 4:25 AM SYSTEM REPOSITORY TYPE CODE TESTS [...] By: #### HEMOG, BMP3M, MG3, PHOS3 #### [employer] [address], [place] MAGNESIUM Collected: 07/20/2018 Status: F Source: [facility] 4:25 AM SYSTEM REPOSITORY TYPE CODE TESTS RESULT OUT OF REFERENCE UNITS RANGE LAB MG3 1.6-2.3 mg/dL Low Magnesium 1.5 Performed By: #### HEMOG, BMP3M, MG3, PHOS3 #### [facility] [place], [place] PHOSPHORUS Collected: 07/20/2018 Status: F Source: [employer] 4:25 AM SYSTEM REPOSITORY TYPE CODE TESTS RESULT OUT OF RANGE REFERENCE UNITS LAB PHOS3 2.5-4.5 mg/dL Normal Phosphorus 4.3 Performed By: #### HEMOG, BMP3M, MG3, PHOS3 #### [facility] [address] [place] [address] Observed: 07/19/2018 Status: F Source: [employer] CLOSTRIDIUM DIFFICILE 10:53 PM SYSTEM REPOSITORY PCR [...] be submitted. Performed By: #### CDPCR #### [employer] [address] HEMOGRAM Collected: 07/19/2018 Status: F Source: [facility]anTemplate 5:29 AM SYSTEM REPOSITORY TYPE CODE TESTS [...] fL Low MPV 7.2 Performed By: #### HEMBI BMP3M, MG3, PHOS3 #### [facility] [address] [place] [phone] BASIC METABOLIC PANEL Collected: 07/19/2018 Status: F Source: [employer] 5:29 AM SYSTEM REPOSITORY TYPE CODE TESTS [...] mg/dL Low Calcium 7.7 Performed By: #### HEMBI, BMP3M, MG3, PHOS3 #### [facility] [address] [place] [phone] MAGNESIUM Collected: 07/19/2018 Status: F Source: [facility]anTemplate 5:29 AM SYSTEM REPOSITORY TYPE CODE TESTS RESULT OUT OF RANGE REFERENCE UNITS LAB MG3 1.6-2.3 mg/dL Normal Magnesium 1.6 Performed By: #### HEMBI, BMP3M, MG3, PHOS3 #### [facility] [address] [place] [phone] PHOSPHORUS Collected: 07/19/2018 Status: F Source: [employer] 5:29 AM SYSTEM REPOSITORY TYPE CODE TESTS RESULT OUT OF RANGE REFERENCE UNITS LAB PHOS3 2.5-4.5 mg/dL Normal Phosphorus 3.4 Performed By: #### HEMOG, BMP3M, MG3, PHOS3 #### [facility] [employer] [address] [phone] HEMOGRAM Collected: 07/18/2018 Status: F Source: QuanTemplate 5:02 AM SYSTEM REPOSITORY TYPE CODE TESTS [...] By: #### HEMOG, BMP3M, MG3, PHOS3 #### [facility] [employer] [address] [address] BASIC METABOLIC PANEL Collected: 07/18/2018 Status: F Source: QuanTemplate 5:02 AM SYSTEM REPOSITORY TYPE CODE TESTS [...] By: #### HEMOG, BMP3M, MG3, PHOS3 #### [employer] [address] [place] [address] MAGNESIUM Collected: 07/18/2018 Status: F Source: QuanTemplate 5:02 AM SYSTEM REPOSITORY TYPE CODE TESTS RESULT OUT OF RANGE REFERENCE UNITS LAB MG3 1.6-2.3 mg/dL Normal Magnesium 1.6 Performed By: #### HEMOG, BMP3M, MG3, PHOS3 #### [facility] [address] [place] [phone] PHOSPHORUS Collected: 07/18/2018 Status: F Source: [employer]anTemplate 5:02 AM SYSTEM REPOSITORY TYPE CODE TESTS RESULT OUT OF RANGE REFERENCE UNITS LAB PHOS3 2.5-4.5 mg/dL Normal Phosphorus 3.5 Performed By: #### HEMOG, BMP3M, MG3, PHOS3 #### [facility] [address] [place] [phone] BASIC METABOLIC PANEL Collected: 07/17/2018 Status: F Source: QuanTemplate 2:00 PM SYSTEM REPOSITORY TYPE CODE TESTS [...] Calcium 7.5 Performed By: #### BMP3 #### [facility] [address] [place], [place] LACTIC ACID Collected: 07/17/2018 Status: F Source: [employer] 11:25 AM SYSTEM REPOSITORY TYPE CODE TESTS RESULT OUT OF REFERENCE UNITS RANGE LAB LACT3 0.7-2.0 mmol/L Low Lactic Acid < 0.5 Performed By: #### LACT3 #### [facility] [address] [place], [place] Observed: 07/17/2018 Status: F Source: [employer] CULTURE URINE 8:28 AM SYSTEM REPOSITORY Order Comment: Specimen Source Comment:Urine, clean catch CULTURE URINE --> Status: F Normal urogenital elham present. Performed By: #### C/UR #### [facility] [address] [place] [address] CT ABDOMEN/PELVIS W/ Observed: 07/17/2018 Status: F Source: [employer] CONTRAST 5:09 AM SYSTEM REPOSITORY Patient Name: DAHLIA MARINO CT Exam Date/Time 07/17/2018 05:32:[address] Abdomen/Pelvis w/ IV Contrast (IV Onl Ordering Physician MD JAMIR, IRENE Gray Accession Number [id number] CPT4 Codes 19185 (CT Abdomen/Pelvis w/ IV Contrast (IV Onl), Q9967 (CT ISOVUE 370MG/[id number]) Reason For Exam recent abscess due to [...] 07/17/2018 5:09 Observed: 07/17/2018 Status: F Source: [employer] CULTURE BLOOD 4:57 AM SYSTEM REPOSITORY Order Comment: Specimen Source Comment:Blood CULTURE BLOOD --> Status: F No growth at 5 days. Performed By: #### C/BLD #### [facility] [address] [place] [phone] Observed: 07/17/2018 Status: F Source: [employer] CULTURE BLOOD (TWO) 4:01 AM SYSTEM REPOSITORY Order Comment: Specimen Source Comment:Blood CULTURE BLOOD (Two) --> Status: F No growth at 5 days. Performed By: #### C/BLT #### [facility] [address] [place] [phone] HEMOGRAM W/ AUTODIFF Collected: 07/17/2018 Status: F Source: [employer] 4:00 AM SYSTEM REPOSITORY TYPE CODE TESTS [...] LIPA4, LFT3, BMP3, CRP2, ESR, PCAL #### [facility] [address] [place] [phone] LACTIC ACID Collected: 07/17/2018 Status: F Source: [employer] 4:00 AM SYSTEM REPOSITORY TYPE CODE TESTS RESULT OUT OF RANGE REFERENCE UNITS LAB LACT3 0.7-2.0 mmol/L Normal Lactic Acid 1.2 Performed By: #### HEMDF, LACT3, LIPA4, LFT3, BMP3, CRP2, ESR, PCAL #### [facility] [address] [place] [phone] LIPASE Collected: 07/17/2018 Status: F Source: [employer] 4:00 AM SYSTEM REPOSITORY TYPE CODE TESTS RESULT OUT OF RANGE REFERENCE UNITS LAB LIPA4 23-300 U/L Normal Lipase 38 Performed By: #### HEMDF, LACT3, LIPA4, LFT3, BMP3, CRP2, ESR, PCAL #### [facility] [address] [place] [phone] HEPATIC FUNCTION Collected: 07/17/2018 Status: F Source: [employer] 4:00 AM SYSTEM REPOSITORY TYPE CODE TESTS [...] LIPA4, LFT3, BMP3, CRP2, ESR, PCAL #### [facility] [address] [place] [phone] BASIC METABOLIC PANEL Collected: 07/17/2018 Status: F Source: [employer] 4:00 AM SYSTEM REPOSITORY TYPE CODE TESTS [...] LIPA4, LFT3, BMP3, CRP2, ESR, PCAL #### [facility] [address] [place] [address] C-REACTIVE PROTEIN Collected: 07/17/2018 Status: F Source: [employer]anTemplate 4:00 AM SYSTEM REPOSITORY TYPE CODE TESTS RESULT OUT OF REFERENCE UNITS RANGE LAB 2CRP 0.0-6.0 mg/L High C-Reactive 11.6 Protein Result Comment: . Performed By: #### HEMDF, LACT3, LIPA4, LFT3, BMP3, CRP2, ESR, PCAL #### [facility] [address] [place] [address] SED RATE Collected: 07/17/2018 Status: F Source: [employer] 4:00 AM SYSTEM REPOSITORY TYPE CODE TESTS RESULT OUT OF RANGE REFERENCE UNITS LAB ESR 0-20 mm/h High Sed Rate 27 Performed By: #### HEMDF, LACT3, LIPA4, LFT3, BMP3, CRP2, ESR, PCAL #### [facility] [address] [place] [address] PROCALCITONIN Collected: 07/17/2018 Status: F Source: [employer]Template 4:00 AM SYSTEM REPOSITORY TYPE CODE TESTS RESULT OUT OF REFERENCE UNITS RANGE LAB PRO <0.10 ng/mL Procalcitonin Normal < 0.10 LAB INT3 NA Interpretation See Below Result Comment: PCT <0.50 = Low risk of severe sepsis and/or septic shock. PCT >2.00 = High risk of severe sepsis and/or septic shock. Performed By: #### HEMDF, LACT3, LIPA4, LFT3, BMP3, CRP2, ESR, PCAL #### [facility] [address] [place] [address] ED PROVIDER NOTE Observed: 07/17/2018 Status: F Source: [employer]Template 2:30 AM SYSTEM REPOSITORY [facility] EMERGENCY DEPT eMERGENCY dEPARTMENT eNCOUnter Pt Name: Dahlia Marino Birthdate 1970 Date of evaluation: 07/17/2018 Provider: Irene Marlow MD Chief Complaint: No chief complaint on file. [place]: Dahlia Marino is a 48 y.o. female [...] antibiotics in the hospital. She is from [place] but was referred here because the hospital [...] by myself in the absence of a tile molder) none Chart review shows recent radiographs: Ct Abdomen Pelvis W Contrast Result Date: 07/02/2018 Patient Name: DAHLIA MARINO ---CT--- Exam Date/Time 07/02/2018 07:47:[address] Abdomen/Pelvis w/ IV Contrast (IV Onl Ordering Physician MD IVIS, MPH, MICHELINE Accession Number [id number] CPT4 Codes 70126 (CT Abdomen/Pelvis w/ IV Contrast (IV Onl), Q9967 (CT ISOVUE 370MG/ML&[id number]&ML&1) Reason For Exam Crohns flare, known abscess [...] PROVIDER NOTE Observed: 07/17/2018 Status: F Source: [employer]Template 2:30 AM SYSTEM REPOSITORY Emergency Department Encounter Location: [facility] EMERGENCY DEPT Patient: Dahlia Marino : [...] # 1.4 1.0 - 4.3 10*3/uL [place] # 1.2 (H) 0.0 - 0.8 10*3/uL [...] eGFR >60.0 >60 mL/min EGFR IF NonAfrican Yemeni >60.0 >60 mL/min Calcium 8.1 (L) 8.4 [...] Physician MD JAMIR, IRENE Gray Accession Number [id number] CPT4 Codes 74220 (CT Abdomen/Pelvis w/ IV Contrast (IV Onl), Q9967 (CT ISOVUE 370MG/ML&[id number]&ML&1) Reason For Exam recent abscess due to [...] are mis-transcribed.) Bon Mercedes MD Acute Care [facility] Bon Mercedes MD 07/17/18 0551 DISCHARGE SUMMARY Observed: 07/04/2018 Status: F Source: [employer] 11:29 AM SYSTEM REPOSITORY Attestation signed by [...] x8, on gregory), hypothyroidism, fibromyalgia presented to [facility] w/ progressive 6 week hx of abdominal pain. She was first seen at [facility] in [place], [place] 6wks prior to admission for abdominal [...] in the urine. CT abdomen done at [facility] (07/01/18) which showed a complex inflammatory collection/mass in anterior RLQ abscess. Patient was then transferred to [facility] the same day for further management and a second opinion. Patient and then requested transfer to [facility] as they have had family treated [...] DISCHARGE MEDICATIONS: Dahlia Marino Home Medication Instructions MARLYN:[id number] Printed on:07/05/18 1006 Medication Information adalimumab (HUMIRA) [...] Complexity: follow up within 7-14 calendar days (38552) [] Severe Complexity: follow up within 7 calendar days (96596) FOLLOW UP TESTING, PENDING RESULTS OR REFERRALS [...] W/ AUTODIFF Collected: 07/04/2018 Status: F Source: [employer] 5:08 AM SYSTEM REPOSITORY TYPE CODE TESTS [...] #### HEMDF, BMP3M, MG3, PHOS3, LFT3 #### [facility] [address] [place] [address] BASIC METABOLIC PANEL Collected: 07/04/2018 Status: F Source: [employer]Template 5:08 AM SYSTEM REPOSITORY TYPE CODE TESTS [...] #### HEMDF, BMP3M, MG3, PHOS3, LFT3 #### [facility] [address] [place] [phone] MAGNESIUM Collected: 07/04/2018 Status: F Source: [employer] 5:08 AM SYSTEM REPOSITORY TYPE CODE TESTS RESULT OUT OF RANGE REFERENCE UNITS LAB MG3 1.6-2.3 mg/dL Normal Magnesium 1.8 Performed By: #### HEMDF, BMP3M, MG3, PHOS3, LFT3 #### [facility] [address] [place] [phone] PHOSPHORUS Collected: 07/04/2018 Status: F Source: [employer] 5:08 AM SYSTEM REPOSITORY TYPE CODE TESTS RESULT OUT OF RANGE REFERENCE UNITS LAB PHOS3 2.5-4.5 mg/dL Normal Phosphorus 3.8 Performed By: #### HEMDF, BMP3M, MG3, PHOS3, LFT3 #### [facility] [address] [place] [address] HEPATIC FUNCTION Collected: 07/04/2018 Status: F Source: [employer]Template 5:08 AM SYSTEM REPOSITORY TYPE CODE TESTS [...] #### HEMDF, BMP3M, MG3, PHOS3, LFT3 #### [employer] [address] [place] [phone] HEMOGRAM W/ AUTODIFF Collected: 07/03/2018 Status: F Source: [employer]Template 2:31 AM SYSTEM REPOSITORY TYPE CODE TESTS [...] By: #### HEMDF, MG3, PHOS3, BMP3M #### [facility] [address] [place] [address] MAGNESIUM Collected: 07/03/2018 Status: F Source: [employer] 2:31 AM SYSTEM REPOSITORY TYPE CODE TESTS RESULT OUT OF RANGE REFERENCE UNITS LAB MG3 1.6-2.3 mg/dL Normal Magnesium 2.1 Performed By: #### HEMDF, MG3, PHOS3, BMP3M #### [employer] [address] PHOSPHORUS Collected: 07/03/2018 Status: F Source: [employer]Template 2:31 AM SYSTEM REPOSITORY TYPE CODE TESTS RESULT OUT OF RANGE REFERENCE UNITS LAB PHOS3 2.5-4.5 mg/dL Normal Phosphorus 3.8 Performed By: #### HEMDF, MG3, PHOS3, BMP3M #### [facility] [address] [place] [address] BASIC METABOLIC PANEL Collected: 07/03/2018 Status: F Source: [employer] 2:31 AM SYSTEM REPOSITORY TYPE CODE TESTS [...] By: #### HEMDF, MG3, PHOS3, BMP3M #### [employer] [address] URINALYSIS,MACRO Collected: 07/03/2018 Status: F Source: [employer]Template 2:23 AM SYSTEM REPOSITORY TYPE CODE TESTS RESULT OUT OF REFERENCE UNITS RANGE LAB APPUR Clear NA Appearance Cloudy LAB COLUR Lt. Yellow NA Color Yellow LAB USG 1.005-1.030 NA Specific Normal [place],Urine 1.015 LAB UPH 5.0-8.0 NA pH,Urine Normal [...] 250 Performed By: #### UAMAC, UAMIC #### [facility] [address] [place] [phone] URINALYSIS,MICROSCOPIC Collected: Status: F Source: [employer] 07/03/2018 2:23 AM HEALTH SYSTEM REPOSITORY TYPE CODE TESTS RESULT OUT OF REFERENCE UNITS RANGE LAB WBCU 0-5 /[HPF] 26 WBC,Urine - 50 LAB RBCU 0-2 /[HPF] 11 RBC,Urine - 25 LAB EPIU 3-5 /[HPF] 0 Epithelial Cells - 2 LAB LILLIAM Negative NA Bacteria Many (51-100) LAB AMPH Negative NA Amorphous Moderate Phosphates (6-50) Performed By: #### UAMAC, UAMIC #### [facility] [address] [phone] Observed: 07/03/2018 Status: F Source: [employer] CULTURE URINE 2:23 AM SYSTEM REPOSITORY Order Comment: Specimen Source Comment:Urine, clean catch CULTURE URINE --> Status: F No growth (<1,000 CFU/ml). Performed By: #### C/UR #### [facility] [address] [address] [address] ABDOMEN/PELVIS W/ Observed: 07/02/2018 Status: F Source: [employer] CONTRAST 8:06 AM SYSTEM REPOSITORY Patient Name: DAHLIA MARINO CT Exam Date/Time 07/02/2018 07:47:[address] Abdomen/Pelvis w/ IV Contrast (IV Onl Ordering Physician MD IVIS, MPH, MICHELINE Accession Number [id number] CPT4 Codes 83749 (CT Abdomen/Pelvis w/ IV Contrast (IV Onl), Q9967 (CT ISOVUE 370MG/[id number]) Reason For Exam Crohns flare, known abscess [...] 8:06 URINALYSIS,MACRO Collected: 07/02/2018 Status: F Source: [employer] 1:59 AM SYSTEM REPOSITORY TYPE CODE TESTS RESULT OUT OF REFERENCE UNITS RANGE LAB APPUR Clear NA Appearance Clear LAB COLUR Lt. Yellow NA Color P. Yellow LAB USG 1.005-1.030 NA Specific Normal [place],Urine 1.010 LAB UPH 5.0-8.0 NA pH,Urine Normal [...] 25 Performed By: #### UAMAC, UAMIC #### [facility] [address] [place] [phone] URINALYSIS,MICROSCOPIC Collected: Status: F Source: [employer] 07/02/2018 1:59 AM HEALTH SYSTEM REPOSITORY TYPE CODE TESTS RESULT OUT OF REFERENCE UNITS RANGE LAB WBCU 0-5 /[HPF] 11 WBC,Urine - 25 LAB RBCU 0-2 /[HPF] 3 RBC,Urine - 5 LAB EPIU 3-5 /[HPF] 3 Epithelial Cells - 5 LAB LILLIAM Negative NA Bacteria Moderate (6-50) Performed By: #### UAMAC, UAMIC #### [facility] [address] [place] [address] Observed: 07/02/2018 Status: F Source: [employer] BLOOD 1:45 AM SYSTEM REPOSITORY Order Comment: Specimen Source Comment:Blood CULTURE BLOOD --> Status: F No growth at 5 days. Performed By: #### C/BLD #### [facility] [address] [place] [address] Observed: 07/02/2018 Status: F Source: [employer] BLOOD (TWO) 1:45 AM SYSTEM REPOSITORY Order Comment: Specimen Source Comment:Blood CULTURE BLOOD (Two) --> Status: F No growth at 5 days. Performed By: #### C/BLT #### [facility] [address] [place] [address] HEMOGRAM W/ AUTODIFF Collected: 07/02/2018 Status: F Source: [employer] 1:37 AM SYSTEM REPOSITORY TYPE CODE TESTS [...] LACT3, TSH5, CMP3, MG3, FT4M, TROPN #### [facility] [address] [place] [phone] PROTHROMBIN TIME Collected: 07/02/2018 Status: F Source: [employer] 1:37 AM SYSTEM REPOSITORY TYPE CODE TESTS [...] LACT3, TSH5, CMP3, MG3, FT4M, TROPN #### [facility] [address] [place] [phone] LACTIC ACID Collected: 07/02/2018 Status: F Source: [employer] 1:37 AM SYSTEM REPOSITORY TYPE CODE TESTS RESULT OUT OF REFERENCE UNITS RANGE LAB LACT3 0.7-2.0 mmol/L Low Lactic Acid 0.6 Performed By: #### HEMDF, PT, LACT3, TSH5, CMP3, MG3, FT4M, TROPN #### [facility] [address] [place] [address] THYROID STIM. Collected: 07/02/2018 Status: F Source: [employer] HORMONE 1:37 AM SYSTEM REPOSITORY TYPE CODE TESTS RESULT OUT OF REFERENCE UNITS RANGE LAB TSH5 0.465-4.680 u[IU]/mL Low Thyroid Stim. 0.175 Hormone Performed By: #### HEMDF, PT, LACT3, TSH5, CMP3, MG3, FT4M, TROPN #### [facility] [address] [place] [phone] COMP METABOLIC PANEL Collected: 07/02/2018 Status: F Source: [employer] 1:37 AM SYSTEM REPOSITORY TYPE CODE TESTS [...] LACT3, TSH5, CMP3, MG3, FT4M, TROPN #### [employer] [facility] [address] [place] [address] MAGNESIUM Collected: 07/02/2018 Status: F Source: [employer] 1:37 AM SYSTEM REPOSITORY TYPE CODE TESTS RESULT OUT OF REFERENCE UNITS RANGE LAB MG3 1.6-2.3 mg/dL Low Magnesium 1.5 Performed By: #### HEMDF, PT, LACT3, TSH5, CMP3, MG3, FT4M, TROPN #### [facility] [address] [place] [phone] FREE T4 Collected: 07/02/2018 Status: F Source: [employer] 1:37 AM SYSTEM REPOSITORY TYPE CODE TESTS RESULT OUT OF RANGE REFERENCE UNITS LAB FT4M 0.78-2.19 ng/dL Normal Free T4 1.87 Performed By: #### HEMDF, PT, LACT3, TSH5, CMP3, MG3, FT4M, TROPN #### [facility] [address] [place] [address] TROPONIN I Collected: 07/02/2018 Status: F Source: [employer] 1:37 AM SYSTEM REPOSITORY TYPE CODE TESTS RESULT OUT OF RANGE REFERENCE UNITS LAB TROP4 0.000-0.034 ng/mL Normal Troponin I < 0.012 Result Comment: 0.046 - 0.400 = Indeterminate > 0.400 = Consider Myocardial Injury Performed By: #### HEMDF, PT, LACT3, TSH5, CMP3, MG3, FT4M, TROPN #### [facility] [address] [place] [phone] ED PROVIDER NOTE Observed: 07/02/2018 Status: F Source: [employer] 12:02 AM SYSTEM REPOSITORY Emergency Department Encounter [facility] 6W MED SURG Patient: Dahlia Marino : 1970 Date of Evaluation: 07/02/2018 ED Provider: Eloisa Vuaghan DO Chief Complaint Chief Complaint Patient presents with ? Fever ? Abdominal Cramping ? Abdominal Pain ROC Marino is a 47 y.o. female who presents to the emergency department With history of Crohn's presenting with concern for possible intra- abdominal abscess. Patient has been having fevers intermittently for the past few weeks, was seen at [facility]. yesterday, CT there showed an [...] otherwise acutely negative except as in the [place]. Past History Past Medical History: Diagnosis Date [...] or performed during the hospital encounter of 11/10/18 Hemogram (CBC) w/Auto Diff Result Value Ref [...] # 1.6 1.0 - 4.3 10*3/uL [place] # 1.4 (H) 0.0 - 0.8 10*3/uL [...] eGFR >60.0 >60 mL/min EGFR IF NonAfrican Yemeni >60.0 >60 mL/min Calcium 8.0 (L) 8.4 [...] UA P. Yellow Lt. Yellow NA Specific [place], Urine 1.010 1.005 - 1.030 NA pH, [...] me Rhythm: normal sinus Rate: normal, 83 [place]: normal Ectopy: none Conduction: normal ST Segments: [...] EVERY 8 HOURS Acknowledged MICHELINE LANGSTON 07/02/18 0907/02/18 0552 sodium chloride flush 0.9 % injection [...] 0.5 mg EVERY 4 HOURS PRN Acknowledged IVIS MICHELINE He 07/02/18 0520 07/02/18 0520 diatrizoate meglumine-sodium (GASTROGRAFIN) [...] PROVIDER NOTE Observed: 07/02/2018 Status: F Source: [employer] 12:02 AM SYSTEM REPOSITORY Emergency Department Encounter [facility] EMERGENCY DEPT Patient: Dahlia Marino : 1970 Date of Evaluation: 07/02/2018 ED Provider: BLAIR HOLDEN CNP As the [id number], I performed a medical screening history and [...] and family. They were at [facility] earlier this morning. Per report from family CT was done with oral contrast finding possible abscess below her liver. He was transferred [facility] without their knowledge. Family states they thought she was coming here. He was at [facility] day and that concerns about her [...] NURSING PROG Observed: 07/01/2018 Status: COMPLETED Source: [place] 11:34 PM [facility] REPOSITORY HNO ID: [id number] Author: Meme RosenthalRn) EZEKIEL Ramsay Service: Emergency Medicine Author Type: [...] this. I personally spoke with Winter Paez SLEEPING BAG FILLER, requested further order to check labs including [...] bleeding. PROGRESS Observed: 07/01/2018 Status: COMPLETED Source: [place] 11:15 PM [facility] REPOSITORY HNO ID: [id number] Author: Jeannine Wolf) JB Womack Service: (none) Author Type: Nurse Practitioner Type: Progress Notes Filed: 07/01/2018 11:51 PM Note Text: CTBS for patient requesting to leave AMA. Nursing postal supervisor on floor speaking with patient and [...] of testing. Family is taking patient to [facility] ED at this time. Pt is alert and oriented x 3, capable of making decisions. AMA paperwork filled out and signed at bedside. Jeannine Womack ENVIRONMENTAL SERVICES DIRECTOR NURSING PROG Observed: 07/01/2018 Status: COMPLETED Source: [place] 9:25 PM CLINIC OTHER CAMPUS REPOSITORY HNO ID: [id number] Author: Ester (Rn) EZEKIEL Kamara Service: (none) [...] 8:57 PM HEALTH SYSTEM REPOSITORY Performed at [facility] APPROVED BY: Zia Maurer MD Exam [...] advised. CONSULT Observed: 07/01/2018 Status: COMPLETED Source: [place] 4:02 PM [facility] REPOSITORY [facility] ID: [id number] Author: Misty Mcdonald Service: General Surgery Author [...] returned and got worse. Patient presented to [place] ED where CT Abd/Pelvis showed a possible [...] CONSULT PROG Observed: 07/01/2018 Status: COMPLETED Source: [place] 3:57 PM CLIN[facility] OTHER CAMPUS REPOSITORY O ID: [id number] Author: Kamran Colon Service: Gastroenterology Author Type: [...] ago per patient) who presented to the [place] ED for abdominal pain. She stated she [...] she called EMS who transferred her to [facility]. In the ED her abdominal CT revealed possible abscess vs neoplasms so she was transferred to [facility]. She denied melena, hematochezia, hematemesis, [...] about 3-4 years ago (no record in [facility]). FUNCTIONAL STATUS: Independent PAST MEDICAL [...] patient 3-4 years ago (no record in [facility]) Assessment AND Plan: Repeat Abdominal [...] patient 3-4 years ago (no record in [facility]) Assessment AND Plan: Need records from [facility] in [place]. SIGNATURE: Kamran Colon APRN.CNP PATIENT NAME: Dahlia Marino DATE: July 01, 2018 TIME: 3:57 PM PAGER: NUTRITION Observed: 07/01/2018 Status: COMPLETED Source: [place] 3:47 PM CLINIC OTHER CAMPUS REPOSITORY HNO ID: [id number] Author: Argentina Zuluaga RD (Ld) Service: Nutrition [...] gm protein per serving and vanilla Boost C QD, to provide 530 kcal and 22 [...] nutritional status Reason for Assessment: Consult from [facility] for patient with 28 lbs weight loss in 4 weeks. Per HPI: This is a 47 year old female with PMH of crohns, hypothyroid, wallace, ape, liver sx d/t infection who presents to the [facility] from [facility]. Pt called EMS and had them take [...] ENSURE CLEAR MIXED PEREZ Supplement 2: [facility] Lines and Drains: Peripheral 07/01/18 [...] Admitted) 07/01/18 0700 - 07/02/18 0659 Shift [id number] [id number] 24 Hour Total 4399-3815 1964-0899 9258-3673 24 Hour Total I N T A [...] July 01, 2018 TIME: 4:25 PM PAGER: [phone] CEA Collected: 07/01/2018 Status: F Source: [facility] 1:55 PM HEALTH SYSTEM REPOSITORY TYPE CODE TESTS RESULT OUT OF RANGE REFERENCE UNITS LAB CEA(LOINC) 0.0-3.0 ng/mL CEA 2.5 Result Comment: The reference range shown is for adult non-smokers. The range for smokers is 0-5.0 Testing performed by Chem[employer] LOCI. Performed By: #### CEA #### [place] [address] MAGNESIUM BLOOD Collected: 07/01/2018 Status: F Source: [facility] 1:55 PM HEALTH SYSTEM REPOSITORY TYPE CODE TESTS RESULT OUT OF REFERENCE UNITS RANGE LAB MAG(LOINC) 1.6-2.6 mg/dL Magnesium Blood 1.6 Performed By: #### MAG #### [place] [address] Observed: 07/01/2018 Status: F Source: [facility] BLOOD 12:00 PM HEALTH SYSTEM REPOSITORY Test performed at [facility] No growth Performed By: #### C_BLO #### [place] [address] HEMOGRAM Collected: 07/01/2018 Status: F Source: [place] [...] MPV 9.8 Performed By: #### CBC1 #### [place] [address] LACTIC ACID Collected: 07/01/2018 Status: F Source: [facility] [facility] 11:55 AM HEALTH SYSTEM REPOSITORY TYPE CODE TESTS RESULT OUT OF REFERENCE UNITS RANGE LAB LAC(LOINC) 0.4-2.0 mEq/L Lactic Acid 0.4 Performed By: #### LAC #### [place] [address] PHOSPHORUS BLOOD Collected: 07/01/2018 Status: F Source: [facility] 11:55 AM HEALTH SYSTEM REPOSITORY TYPE CODE TESTS RESULT OUT OF REFERENCE UNITS RANGE LAB PHOS(LOINC 2.5-4.9 mg/dL ) Phosphorus Blood 3.8 Performed By: #### PHOS #### [place] [address] CRP Collected: 07/01/2018 Status: F Source: [facility] 11:55 AM HEALTH SYSTEM REPOSITORY TYPE CODE TESTS RESULT OUT OF RANGE REFERENCE UNITS LAB CRP3(LOINC) 0.00-0.30 mg/dL High CRP 8.04 Performed By: #### CRP3 #### [facility] 1 [place] [address] COMPREHENSIVE PANEL Collected: 07/01/2018 Status: F Source: [...] Gap 12 Performed By: #### P14 #### [facility] 1 [place] [address] MDRD GFR Collected: 07/01/2018 Status: F Source: [facility] 11:[facility] SYSTEM REPOSITORY TYPE CODE TESTS RESULT OUT OF RANGE REFERENCE UNITS LAB GFRFN(LOINC >60mL/min/1.73m ) 2 eGFR >60 Result Comment: If the patient is , multiply the result by 1.210. Performed By: #### GFR #### [facility] 1 [place] [address] PROTIME Collected: 07/01/2018 Status: F Source: [address] SYSTEM REPOSITORY TYPE CODE TESTS RESULT OUT OF REFERENCE UNITS RANGE LAB PTI(LOINC) 9.7-13.0 sec Prothrombin Time 11.7 LAB INR(LOINC) 0.90-1.30 INR 1.14 Result Comment: Note: Reference Range Change Vitamin K Antagonist (VKA) Therapeutic Range: INR 2 to 3 (Target INR of 2.5) Note: For patients treated with VKA drugs, such as warfarin, the [place] [employer] 2012 Guideline recommends [...] Chest 2012; 141:7S-47S Rogelio RICHMOND et al. [facility] 2017; 70: 252-289 Performed By: #### PT #### [place] [address] ACTIVATED PTT Collected: 07/01/2018 Status: F Source: [place] [address]:[address] [place] [address] SYSTEM REPOSITORY TYPE CODE TESTS RESULT OUT [...] laboratory APTT reagent in use throughout the [facility]. Performed By: #### APTT #### [facility] 1 [place], [place] [address] SED RATE Collected: 07/01/2018 Status: F Source: [facility] 11:55 AM HEALTH SYSTEM REPOSITORY TYPE CODE TESTS RESULT OUT OF RANGE REFERENCE UNITS LAB ESR(LOINC) 0-20 mm/hr High Sed Rate 38 Performed By: #### ESR #### [facility] 1 [place], [place] [address] HISTORY PHYSICAL Observed: 07/01/2018 Status: COMPLETED Source: [place] 11:14 AM CLINIC OTHER CAMPUS REPOSITORY HNO ID: [id number] Author: Meryl Hogan Service: Hospital Medicine Author Type: Nurse Practitioner Type: HANDP Filed: 07/01/2018 11:50 AM Note Text: Attestation signed by Jose Altamirano at 2018 5:50 PM (Updated) I have personally seen and examined the patient. I agree with the ENVIRONMENTAL SERVICES DIRECTOR's note with following addition. Ms Marino, a 47 years old lady who has hx of UC and is on Humira Q week (last dose 2 weeks ago) under care of GI (? Dr Bender in [facility]) and multiple bowel surgeries including bowel resection, has abdominal pain for more than a month initially in lower part now generalized worse with food. Has fever in the last few days. Normal BM (reported diarrhea to [facility]), no nausea. Was treated with flagyl for a week a month ago. Last c scope > 5 years ago and last surgery > 5 years ago. She presented to [facility] where she was noted to have [...] 2 weeks ago), under the care of nickel plater ? Dr Bender 4. Hx of multiple [...] sx d/t infection who presents to the [facility] from [facility]. Pt called EMS and had them take [...] Tracey VTE Prophylaxis: VTE prophylaxis appropriate SIGNATURE: Meyrl Hogan APRN.CNP PATIENT NAME: Dahlia Marino DATE: July 01, 2018 TIME: 11:15 AM PAGER: 1125 CT ABDOMEN/PELVIS W Observed: 07/01/2018 Status: F Source: [facility] 12:42 AM [place] [address] Patient: DAHLIA MARINO Phone#: : 1970 Age: 47 Gender: F Pt. Type: ER Account: [id number] Location: 052 Ordering: DOROTEO TABOR Exam Date: 07/01/2018/0:28 Family Phys: MARLO McleanJose RICKEY Charge Code: 495777 Physician: [place] Order #: [id number] DLP Dose#: 9.80 PROCEDURE: CT ABDOMEN/PELVIS WITH [...] 47 Gender: F Pt. Type: ER Account: [id number] Location: 052 Ordering: DOROTEO TABOR Exam Date: 07/01/2018/0:28 Family Phys: MARLO Pj HATCHOSMAR Charge Code: 527185 Physician: [place] Order #: [id number] DLP Dose#: 9.80 ABDOMINAL WALL: Normal. No [...] 8:50 URINALYSIS Collected: 07/01/2018 Status: F Source: [facility] 12:34 AM [facility] REPOSITORY TYPE CODE TESTS RESULT OUT OF [...] Urobilinog(LOINC) NORMAL: NORMAL Urobilinog NORM LAB [place](LOINC) NORMAL: 1.010-1.030 [facility] [place] 1.015 LAB Nitrite(LOINC) NORMAL: NEGATIVE Nitrite NEG [...] LAB Yeast(LOINC) Yeast NONE Performed By: #### [id number] #### [facility],[address] [place] [address] Observed: 06/30/2018 Status: F Source: [facility] [place] CULTURE BLOOD 11:25 PM [facility] REPOSITORY CULTURE BLOOD CULTURE BLOOD SET: 2 of 2 24HOUR REPORT NEGATIVE 48HOUR REPORT NEGATIVE 72HOUR REPORT NEGATIVE M I C R O B I O L O G Y R E P O R T FINAL Antimicrobial Susceptibility and Organism Identification Report Specimen Number : [id number] Requested : 06/30/18 Specimen Source : BLOOD Collected : 06/30/18 23:25 [place] [facility] [place] : Emergency Room Received : 06/30/18 23:25 Requesting Physician : christina Patient/Specimen Tests and Comments Specimen Comments FINAL REPORT: No Growth at 5 Days Tech : Source : BLOOD ID # : [id number] FINAL Report Date : / / : Collected : 06/30/18 23:25 07/06/18.1142.BKO. 07/06/18.114.BKO.COMPLETE Performed By: #### [id number] #### [facility],[address] [place] [address] CBC Collected: 06/30/2018 Status: F Source: [facility] 10:45 PM [facility] REPOSITORY TYPE CODE TESTS RESULT OUT OF [...] x10EE3/U L Neut # High 10.00 LAB Nobles #(LOINC) 0.20 - 1.00 x10EE3/U L Nobles # High 1.30 LAB EO #(LOINC) 0.00 - 0.50 x10EE3/U L EO # 0.00 LAB Baso #(LOINC) 0.00 - 0.10 x10EE3/U L Baso # 0.10 LAB MANUAL DIFF([facility]) MANUAL DIFF N/A LAB MORPHOLOGY([facility] ) MORPHOLOGY N/A Result Comment: {CD] Performed By: #### [id number] #### [place] [address] LACTATE Collected: 06/30/2018 Status: F Source: [facility] 10:45 PM [facility] REPOSITORY TYPE CODE TESTS RESULT OUT OF REFERENCE UNITS RANGE LAB LACTATE(MESSI 4.5 - 18.0 mg/dL NC) Low LACTATE 4.3 Performed By: #### [id number] #### [place] [address] CMP WITH EGFR Collected: 06/30/2018 Status: F Source: [facility] 10:45 PM [facility] REPOSITORY TYPE CODE TESTS RESULT OUT OF RANGE REFERENCE UNITS LAB CMP with eGFR([facility]) CMP with eGFR Result Comment: COMPREHENSIVE METABOLIC [...] OF AGE AND OLDER. Performed By: #### [id number] #### [place] [id number] LIPASE Collected: 06/30/2018 Status: F Source: [facility] 10:45 [facility] REPOSITORY TYPE CODE TESTS RESULT OUT OF REFERENCE UNITS RANGE LAB LIPASE(LOIN 18.0 - 51.0 U/L C) LIPASE 18.0 Performed By: #### [id number] #### [place] [id number] TROPONIN Collected: 06/30/2018 Status: F Source: [facility] 10:45 [facility] REPOSITORY TYPE CODE TESTS RESULT OUT [...] such as heterophile antibodies). Performed By: #### 755431 #### [place] [address] TSH Collected: 06/30/2018 Status: F Source: [facility] 10:45 PM [facility] REPOSITORY TYPE CODE TESTS RESULT OUT OF RANGE REFERENCE UNITS LAB TSH(LOINC) 0.34 - 5.60 uIU/ml Low TSH 0.17 Performed By: #### 710527 #### [place] [address] Observed: 06/30/2018 Status: F Source: [facility] CULTURE BLOOD 10:45 [facility] REPOSITORY CULTURE BLOOD CULTURE BLOOD SET: 1 of 2 24HOUR REPORT NEGATIVE 48HOUR REPORT NEGATIVE 72HOUR REPORT NEGATIVE M I C R O B I O L O G Y R E P O R T FINAL Antimicrobial Susceptibility and Organism Identification Report Specimen Number : [id number] Requested : 06/30/18 Specimen Source : BLOOD Collected : 06/30/18 22:45 [place] [facility] Isolation : Emergency Room Received : 06/30/18 22:45 Requesting Physician : christina Patient/Specimen Tests and Comments Specimen Comments FINAL REPORT: No Growth at 5 Days Tech : Source : BLOOD ID # : [id number] FINAL Report Date : / / : Collected : 06/30/18 22:45 07/06/18.1142.BKO. 07/06/18.1142.BKO.COMPLETE Performed By: #### [id number] #### [facility],[address] [place] [address] EMERGENCY REPORT Observed: 06/30/2018 Status: F [facility] EMERGENCY ROOM REPORT NAME ACCOUNT SEX AGE ADMIT DISCHARGE PT MED. RECORD# NUMBER DATE DATE TYPE DAHLIA MARINO [id number] F 47 06/30/18 07/01/18 3 R [id number] ROOM: ER DATE OF : 1970 DICTATING [...] our surgical service here at [facility], who due to this patient's complicated medical history suggested transfer to [facility] in [place]. I then contacted [place], who suggested contacting the [facility] due to her complicated history. I then contacted [facility], who was agreeable with accepting the patient. The patient was monitored in our Emergency Department throughout the night and then transferred in stable condition. Dictated By: Doroteo Tabor DO 07/01/18 07:00 JOB #: [id number] Transcribed By: jen 07/01/18 09:44 Electronically signed by: E-SIGN: Doroteo Tabor D.O. 07/08/18 06:49 Page 2 of 2 DAHLIA MARINO Emergency Room Report EMERGENCY REPORT Observed: 06/30/2018 Status: F Source: [facility] 9:55 PM [facility] EMERGENCY ROOM REPORT NAME ACCOUNT SEX AGE ADMIT DISCHARGE PT MED. RECORD# NUMBER DATE DATE TYPE DAHLIA MARINO [id number] F 47 06/30/18 07/01/18 3 R [id number] ROOM: ER DATE OF : 1970 DICTATING [...] Lore Mujica DO 07/01/18 08:22 JOB #: [id number] Transcribed By: jen 07/01/18 10:00 Electronically signed by: E-Sign: LORE MUJICA MD 07/12/18 12:00 Page 1 of 1 JENAJENY DAHLIA Mag Emergency Room Report ED PROV NOTE Observed: 05/11/2018 Status: COMPLETED Source: [place] 4:14 PM [facility] REPOSITORY [facility] ID: [id number] Author: Katia Tamez Service: (none) Author Type: Physician Type: ED Provider Notes Filed: 06/23/2018 9:00 PM Note Text: [facility] [place] [address] HEALTH INFORMATION MANAGEMENT EMERGENCY DEPARTMENT REPORT Patient: NEDKATIA MCCALL D.O. [id number] [age] F Status: DEP ER ED Date of Service: 05/08/18 CHIEF COMPLAINT A 47-year-old female. Chief complaint: Vaginal problem. HISTORY OF PRESENT ILLNESS The patient says she has had a recurrent yeast infection. She has had a discolored discharge. She has had a hysterectomy. She does not have a integrated specialist. No other complaints. No abdominal pain, just [...] I am going to refer her to OUTREACH WORKER for followup. <Electronically signed by KATIA TAMEZ D.O.> 05/12/18 0538 KATIA TAMEZ D.O. cc: TAMEZ,KATIA K D.O. << Signature on File>> Reported By: KATIA TAMEZ D.O. Signed By: KATIA TAMEZ D.O. Tests performed at: [place] [address] EMERGENCY DEPARTMENT Observed: 05/11/2018 Status: F Source: [facility] REPORT 4:14 PM [facility] [place] [address] HEALTH INFORMATION MANAGEMENT EMERGENCY DEPARTMENT REPORT Patient: DAHLIA MARINO KATIA TAMEZ D.O. [id number] [age] F Status: [facility] ER ED Date of Service: 05/08/18 CHIEF COMPLAINT A 47-year-old female. Chief complaint: Vaginal problem. HISTORY OF PRESENT ILLNESS The patient says she has had a recurrent yeast infection. She has had a discolored discharge. She has had a hysterectomy. She does not have a integrated specialist. No other complaints. No abdominal pain, just [...] I am going to refer her to OUTREACH WORKER for followup. <Electronically signed by KATIA TAMEZ D.O.> 05/12/18 0538 KATIA TAMEZ D.O. cc: KATIA TAMEZ D.O. << Signature on File>> Reported By: KATIA TAMEZ D.O. Signed By: KATIA TAMEZ D.O. Tests performed at: [address] [address] Observed: 05/08/2018 Status: F Source: [facility] WET PREP 3:09 AM HOSPITAL REPOSITORY WET PREP FEW EPITHELIAL CELLS MANY WBC'S FEW RBC'S NEGATIVE FOR YEAST NEGATIVE FOR TRICHOMONAS Performed By: #### M100.0300 #### [facility] [address] [place] [address] EMERGENCY REPORT Observed: 01/09/2018 Status: F Source: [place] 7:13 PM [facility] REPOSITORY [facility] EMERGENCY ROOM REPORT NAME ACCOUNT SEX AGE ADMIT DISCHARGE PT MED. RECORD# NUMBER DATE DATE TYPE DAHLIA MARINO [id number] F 47 12/28/17 12/28/17 3 R [id number] ROOM: ER DATE OF : 1970 DICTATING [...] the coronary arteries by Dr. Haque in [place]. She states that she has had an [...] sinus mechanism without an evidence of acute [place]. Rate was 93 and this was done [...] Mor Douglass DO 05/08/18 06:44 JOB #: [id number] Transcribed By: sp 12/29/17 05:54 Electronically signed by: E-SIGN MOR RAFAT ARSHAD 01/09/18 19:10 Page 2 of 2 DAHLIA MARINO Emergency Room Report CBC Collected: 12/28/2017 Status: F Source: [place] 4:10 AM [facility] REPOSITORY TYPE CODE TESTS RESULT OUT OF [...] x10EE3/U L Neut # High 10.70 LAB Nobles #(LOINC) 0.20 - 1.00 x10EE3/U L Nobles # 0.50 LAB EO #(LOINC) 0.00 - 0.50 x10EE3/U L EO # 0.10 LAB Baso #(LOINC) 0.00 - 0.10 x10EE3/U L Baso # 0.00 LAB MANUAL DIFF(LOINC) MANUAL DIFF N/A LAB MORPHOLOGY(LOINC ) MORPHOLOGY N/A Result Comment: {CD] Performed By: #### [id number] #### [facility],[address] [place] [address] CMP WITH EGFR Collected: 12/28/2017 Status: F Source: [facility] 4:10 AM [facility] REPOSITORY TYPE CODE TESTS RESULT OUT OF [...] OF AGE AND OLDER. Performed By: #### [id number] #### [place] [address] LIPASE Collected: 12/28/2017 Status: F Source: [facility] 4:10 [facility] REPOSITORY TYPE CODE TESTS RESULT OUT OF REFERENCE UNITS RANGE LAB LIPASE(LOIN 18.0 - 51.0 U/L C) LIPASE 25.0 Performed By: #### 433449 #### [place] [address] TROPONIN Collected: 12/28/2017 Status: F Source: [facility] 4:[address] [place] [address] REPOSITORY TYPE CODE TESTS RESULT OUT OF [...] such as heterophile antibodies). Performed By: #### 962759 #### [place] [address] ALLERGIES ALLERGIES DATE TYPE / NAME / CODE REACTION SEVERITY SOURCE CODE 08/29/2018 Drug doxycycline/[id number] Other Unknown [place] Allergy/41 748(RXNORM) [facility] [id number]([facility]) Repository 08/29/2018 Drug erythromycin Hives Unknown [place] Allergy/41 base/[id number](RXN Community 2624382(SN ORM) [facility]) Repository 08/29/2018 Drug metronidazole/F0060 Other Unknown [place] Allergy/41 88411(RXNORM) [facility] 4565172([facility]) Repository 07/01/2018 DRUG DOXYCYCLINE SHORTNESS OF [place] INGREDI/41 Clinic Other 4088308([facility]) Repository 07/01/2018 DRUG METRONIDAZOLE INTOLERANCE [place] INGREDI/41 Clinic Other 9322868([facility]) Repository 07/01/2018 DRUG AZITHROMYCIN SHORTNESS OF [place] INGREDI/41 Clinic Other 3705857([facility]) Repository NG/5545018 DOXYCYCLINE [facility]) Repository NG/4230905 METRONIDAZOLE [facility] 06([facility]OM[facility]) Repository NG/0799996 AZITHROMYCIN [facility] 06([facility]OM[facility]) Repository Drug DOXYCYCLINE/1730260 Moderate [place] Allergy/41 0(RXNORM) ([facility] 2071363(SN Modifier) [facility]) (Qualifier Repository Value) Drug FLAGYL/30639157(RXN Moderate [place] Allergy/41 ORM) ([facility] 6035911(SN Modifier) [facility]) (Qualifier Repository Value) Drug ERYTHROMYCIN/128198 Moderate [place] Allergy/41 26(RXNORM) ([facility] 6023460(SN Modifier) [facility]) (Qualifier Repository Value) ENCOUNTERS ENCOUNTERS ADMIT/DISCHARGE ACCOUNT NUMBER ADMITTING ENCOUNTER LOCATION SOURCE CLASS 09/06/2018 [id number] [facility] ding:MEDOUTP Repository 09/05/2018 [id number] [facility] ding:MEDOUTP Repository 09/05/[id number] [facility] Repository 09/04/2018/09/04/[id number] ding:MEDOUTP Repository 09/03/2018/09/03/[id number] ding:MEDOUTP Repository 09/02/2018 [id number] Ambulatory [place] [facility] Repository 09/01/2018 [id number] Ambulatory [place] [facility] ding:MED[facility] Repository 09/01/2018 [id number] Emergency [facility] [place] [address] ERRoom: System [id number]: Repository [id number] 09/01/2018 [id number] Ambulatory [facility] System Repository 08/31/2018 [id number] Ambulatory [place] [facility] ding:MED[facility] Repository 08/30/2018 [id number] Ambulatory [place] [facility] ding:MED[facility] Repository 08/30/2018 [id number] Ambulatory [facility] System Repository 08/29/2018 [id number] Ambulatory [place] [facility] ding:MED[facility]P Repository 08/28/2018/08/28/19 [id number] Ambulatory [place] 19 [facility] ding:MED[facility]P Repository 08/27/2018/08/27/19 [id number] Ambulatory [place] 19 [facility] ding:MED[facility] Repository 08/26/2018 [id number] Ambulatory [place] [facility] ding:MED[facility]P Repository 08/25/2018 [id number] Ambulatory [place] [facility] ding:MED[facility]P Repository 08/25/2018 [id number] Ambulatory [facility] Repository 08/24/2018 [id number] Ambulatory [place] [facility] ding:MED[facility]P Repository 08/23/2018/08/23/19 [id number] Ambulatory [place]ita 19 [facility] ding:MED[facility]P Repository 08/22/2018 [id number] Ambulatory [place] [facility] ding:MED[facility]P Repository 08/21/2018/08/21/20 [id number] Ambulatory [place] 18 [facility] ding:MED[facility]P Repository 08/20/2018/08/20/20 [id number] Ambulatory Martita Martita 18 [facility] ding:MED[facility]P Repository 08/19/2018 [id number] Ambulatory [place]ita Martita [facility] ding:MEDOUTP Repository 08/18/2018 [id number] Ambulatory Mart[place] [facility] ding:MEDOUTP Repository 08/17/2018 [id number] Ambulatory [place] Martita [facility] ding:MEDOUTP Repository 08/16/2018/08/16/20 [id number] Ambulatory [place] 18 [facility] ding:MED[facility]P Repository 08/15/2018 [id number] Ambulatory [place] [facility] ding:MED[facility]P Repository 08/14/2018/08/14/20 [id number] Ambulatory [place] 18 [facility] ding:MEDOUTP Repository 08/13/2018/08/13/20 [id number] Ambulatory [place] 18 [facility] ding:MED[facility]P Repository 08/12/2018 [id number] Ambulatory [place] Martita [facility] ding:MEDOUTP Repository 08/11/2018 [id number] Ambulatory [place] [facility] ding:MEDOUTP Repository 08/10/2018 [id number] Ambulatory [place] [facility] ding:MEDOUTP Repository 08/09/2018 [id number] Ambulatory [place] Martita [facility] ding:MED[facility]P Repository 08/08/2018 [id number] Ambulatory Martita Martita [facility] ding:MED[facility]P Repository 08/07/2018/08/07/20 [id number] Ambulatory [place] 18 [facility] ding:MEDOUTP Repository 08/06/2018/08/06/20 [id number] Ambulatory [place] 18 [facility] ding:MEDOUTP Repository 08/05/2018 [id number] Ambulatory Martita Martita [facility] ding:MED[facility]P Repository 08/04/2018 [id number] Ambulatory [place] Martita [facility] ding:MED[facility]P Repository 08/04/2018 [id number] Ambulatory [facility] System Repository 08/04/2018 [id number] Ambulatory [facility] Repository 08/03/2018 [id number] [facility] [place] [facility] Repository 08/02/2018 [id number] Ambulatory [place] Martita [facility] ding:MED[facility]P Repository 08/01/2018 [id number] [facility] Repository 07/31/2018/07/31/20 [id number] Ambulatory [place] [address] [place] [address] [facility] ding:MED[facility] Repository 07/30/2018/07/30/20 [id number] Ambulatory [place] [address] [place] [address] [facility] ding:MEDOUTP Repository Room: [facility] 07/29/2018 [id number] [facility] ding:MED[facility]P Repository 07/29/2018 [id number] Ambulatory [facility] Repository 07/28/2018 [id number] [facility] [place] [facility] Repository 07/27/2018 [id number] [facility] ding:[facility] Repository 07/26/2018 [id number] [facility] Repository 07/26/2018 [id number] Ambulatory [facility] Repository 07/25/2018 [id number] [facility] ding:MED[facility]P Repository 07/24/2018/07/24/20 [id number] Ambulatory [place] [address] [place] [address] [facility] Hospital ding:MEDOUTP Repository 07/23/2018/07/23/20 [id number] Ambulatory Martita Martita [address] [place] [address] [facility] ding:MEDOUTP Repository 07/22/2018 [id number] [facility] Repository 07/21/2018 [id number] [facility] ding:[facility] Repository 07/17/2018 [id number] Inpatient [facility] [place] [address] 4NRoom: System [id number]: Repository [id number] 07/02/2018 [id number] Inpatient BuildinA [facility] Encounter 6WRoom: System [id number]: Repository [id number] 07/01/2018/07/02/20 [id number] TETYUK, Inpatient [place] 18 PENELOPE Encounter Clinic Other [facility] Repository 07/01/2018/07/02/20 [id number] TETYUK, Inpatient [facility] 18 PENELOPE Encounter [facility] System MEDICAL Repository BRITTBuild nRoom: 7121Bed: 06/30/2018/07/01/20 [id number] CHRISTINA, Emergency Buildin[address] [place] [address] 18 DOROTEO D Room: ERBed: [facility] Repository 05/08/2018/05/08/20 [id number] Emergency UNIBuilding: [address] Repository 12/28/2017/12/29/19 [id number] RAFAT, Emergency Buildin[address] [place] [address] 18 MOR DO Room: ERBed: [facility] Repository PAYERS PAYERS ENCOUNTER GUARANTOR 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 SOURCE 09/06/2018 DAHLIA R Primary Insurance:SELF NOT GIVENUNK [place] [id number] [facility]Y [facility] Number: Effective [place] Date:2018-08-30 Repository 55981Uqj: () 09/05/2018 DAHLIA R Primary Insurance:SELF NOT GIVENUNK [place] [id number] PAY [facility] [place]: [place] Date:2018-08-30 Repository 73947Lcx: (HP) 09/05/2018 Dahlia Primary Dahlia BarkesDOB: [facility] BarkesDOB: Insurance:MedicarePoli [id number] System cy Number: Effective [facility] Date: [place], [place] [address]Rbp: (HP) 09/05/2018 Secondary Dahlia BarkesDOB: [facility] Insurance:MedicarePoli [id number] System cy Number: Effective Repository Date: 09/05/2018 Tertiary Dahlia BarkesDOB: [facility] Insurance:Self [id number] System PayPolicy Number: Repository Effective Date: 09/04/2018 DAHLIA R Primary Insurance:SELF NOT GIVENUNK Martita [id number] PAY [facility] Number: [place] Date:2018-08-30 Repository 05852Sjs: (HP) 09/03/2018 DAHLIA R Primary Insurance:SELF NOT GIVENUNK [place] [id number] PAY [facility] Number: [place] Date:2018-08-30 Repository 61176Nkv: (HP) 09/02/2018 DAHLIA R Primary Insurance:SELF NOT GIVENUNK [place] [id number] PAY [facility] Number: [place] Date:2018-08-30 Repository 32171Afv: (HP) 09/01/2018 DAHLIA R Primary Insurance:SELF NOT GIVENUNK [place] [id number] PAY [facility] Number: [place] Date:2018-08-30 Repository 75618Fmo: (HP) 09/01/2018 Dahlia Primary Dahlia BarkesDOB: [facility] BarkesDOB: Insurance:MedicarePoli [id number] System cy Number: Effective [facility] Date: [place], [place] [address]Nps: () 09/01/2018 Secondary Dahlia BarkesDOB: [facility] Insurance:Self [id number] System PayPolicy Number: Repository Effective Date: 09/01/2018 Dahlia Primary Dahlia BarkesDOB: [facility] BarkesDOB: Insurance:MedicarePoli [id number] System cy Number: Effective Repository [facility] Date: [place], [place] [address]Auy: (HP) 09/01/2018 Secondary Dahlia BarkesDOB: [facility] Insurance:Self [id number] System PayPolicy Number: Repository Effective Date: 08/31/2018 DAHLIA R Primary Insurance:SELF NOT GIVENUNK [place] [id number] PAY [facility] Number: Effective [facility] Date:2018-08-30 Repository 31328Wdn: () 08/30/2018 DAHLIA R Primary Insurance:SELF NOT GIVENUNK Martita [id number] PAY [facility] Number: Effective [facility] Date:2018-08-24 Repository 65900Aks: (HP) 08/30/2018 Dahlia Primary Dahlia BarkesDOB: [facility] BarkesDOB: Insurance:MedicarePoli [id number] System cy Number: Effective [facility] Date: [place], [place] [address]Smh: () 08/30/2018 Secondary Dahlia JenajenyB: [facility] Insurance:Self [id number] System PayPolicy Number: Repository Effective Date: 08/29/2018 DAHLIA R Primary Insurance:SELF NOT GIVENUNK Martita [id number] PAY [facility] Number: Effective [facility] Date:2018-08-24 Repository 20564Occ: () 08/28/2018 DAHLIA R Primary Insurance:SELF NOT GIVENUNK [place] [id number] PAY [facility] Number: Effective [facility] Date:2018-08-24 Repository 47032Cuy: () 08/27/2018 DAHLIA R Primary Insurance:SELF NOT GIVENUNK Martita [id number] PAY [facility] Number: Effective [facility] Date:2018-08-24 Repository 14147Hlz: (HP) 08/26/2018 DAHLIA R Primary Insurance:SELF NOT GIVENUNK Martita [id number] PAY [facility] Number: Effective [facility] Date:2018-08-24 Repository 385[address]Jpy: (HP) 08/25/2018 DAHLIA R Primary Insurance:SELF NOT GIVENUNK Martita [id number] PAY [facility] Number: Effective [facility] Date:2018-08-24 Repository 12932Qwj: (HP) 08/25/2018 Dahlia Primary Dahlia MarinoB: [facility] NancieB: Insurance:MedicarePoli [id number] System cy Number: Effective [facility] Date: [facility] [place] [address]Dun: (HP) 08/25/2018 Secondary Dahlia MarinoWILLIAN: [facility] Insurance:Self [id number] System PayPolicy Number: Repository Effective Date: 08/24/2018 DAHLIA R Primary Insurance:SELF NOT GIVENUNK Martita [id number] PAY [facility] Number: Effective [facility] Date:2018-08-22 Repository 70970Tkl: (HP) 08/23/2018 DAHLIA R Primary Insurance:SELF NOT GIVENUNK Martita [id number] PAY [facility] Number: Effective [facility] Date:2018-08-09 Repository 95700Cvz: (HP) 08/22/2018 DAHLIA R Primary Insurance:SELF NOT GIVENUNK [place]ie [id number] PAY [facility] Number: Effective [facility] Date:2018-08-22 Repository 21810Ycv: (HP) 08/21/2018 DAHLIA R Primary Insurance:SELF NOT GIVENUNK Martita [id number] PAY [facility] Number: Effective [facility]:2018-08-09 Repository 02244Qpf: (HP) 08/20/2018 DAHLIA R Primary Insurance:SELF NOT GIVENUNK Martita [id number] PAY [facility] Number: Effective [facility]:2018-08-09 Repository 23579Rea: (HP) 08/19/2018 DAHLIA R Primary Insurance:SELF NOT GIVENUNK Martita [id number] PAY [facility] Number: Effective [facility] [place] Date:2018-08-09 Repository 93486Qti: (HP) 08/18/2018 DAHLIA R Primary DAHLIA R Laramie [id number] Insurance:MEDICARE A BARKESDOB: [facility] Number: [id number] [id number] Repository [address]Dzv: (330) Date:2018-08-09 [phone] (HP) 08/18/2018 Secondary NOT GIVENUNK [place]ie Insurance:SELF PAY [facility] Number: Effective Repository Date:2018-08-09 08/17/2018 DAHLIA R Primary DAHLIA R Martita [id number] Insurance:MEDICARE A BARKESDOB: [facility] Number: [id number], [place] [id number] Repository 517[address]Iss: (490) Date:2018-08-09 [phone] (HP) 08/17/2018 Secondary NOT GIVENUNK [place] Insurance:SELF PAY [facility] Number: Effective Repository Date:2018-08-09 08/16/2018 DAHLIA R Primary DAHLIA R [place]ie [id number] Insurance:MEDICARE A BARKESDOB: [facility] Number: [id number], [place] [id number] Repository 17[address]Bkw: (330) Date:2018-08-09 [phone] (HP) 08/16/2018 Secondary NOT GIVENUNK Martita Insurance:SELF PAY [facility] Number: Effective Repository Date:2018-08-09 08/15/2018 DAHLIA R Primary Insurance:SELF NOT GIVENUNK Martita [id number] PAY [facility] Number: [place] Date:2018-08-09 Repository 16176Jof: (HP) 08/14/2018 DAHLIA R Primary Insurance:SELF NOT GIVENUNK [place] [id number] PAY [facility] Number: [place] Date:2018-08-09 Repository 71747Qyb: (HP) 08/13/2018 DAHLIA R Primary Insurance:SELF NOT GIVENUNK [place] [id number] PAY [facility] Number: Effective [facility] Date:2018-08-09 Repository 28367Uyh: () 08/12/2018 DAHLIA R Primary Insurance:SELF NOT GIVENUNK Martita [id number] PAY [facility] Number: Effective [facility] Date:2018-08-09 Repository 97683Ksl: (HP) 08/11/2018 DAHLIA R Primary Insurance:SELF NOT GIVENUNK [place] [id number] PAY [facility] Number: Effective [facility] Date:2018-08-09 Repository 12589Sjw: () 08/10/2018 DAHLIA R Primary Insurance:SELF NOT GIVENUNK Martita [id number] PAY [facility] Number: Effective [facility] Date:2018-07-26 Repository 62451Kef: () 08/09/2018 DAHLIA R Primary Insurance:SELF NOT GIVENUNK Martita [id number] PAY [facility] Number: Effective [facility] Date:2018-07-26 Repository 25644Rpg: () 08/08/2018 DAHLIA R Primary Insurance:SELF NOT GIVENUNK Martita [id number] PAY [facility] Number: Effective [facility] Date:2018-07-26 Repository 02681Nuo: () 08/07/2018 DAHLIA R Primary Insurance:SELF NOT GIVENUNK Martita [id number] PAY [facility] Number: Effective [facility] Date:2018-07-26 Repository 20746Wsw: () 08/06/2018 DAHLIA R Primary Insurance:SELF NOT GIVENUNK Martita [id number] PAY [facility] Number: Effective [facility] Date:2018-07-26 Repository 19072Tsc: (HP) 08/05/2018 ADHLIA R Primary Insurance:SELF NOT GIVENUNK [place]ie [id number] PAY [facility] Number: Effective [facility] [place] Date:2018-07-26 Repository 61166Oko: (HP) 08/04/2018 DAHLIA R Primary Insurance:SELF NOT GIVENUNK Martita [id number] PAY [facility] Number: Effective [facility] [place] Date:2018-07-26 Repository 63970Emd: (HP) 08/04/2018 Dahlia Primary Dahlia BarkesDOB: [facility] BarkesDOB: Insurance:MedicarePoli [id number] System cy Number: Effective [facility] Date: [place], [place] [address]Wwc: () 08/04/2018 Secondary Dahlia BarkesDOB: [facility] Insurance:Self [id number] System PayPolicy Number: Repository Effective Date: 08/04/2018 Dahlia Primary Dahlia BarkesDOB: [facility] BarkesDOB: Insurance:MedicarePoli [id number] System cy Number: Effective [facility] Date: [place], [place] [address]Xat: () 08/04/2018 Secondary Dahlia BarkesDOB: [facility] Insurance:Self [id number] System PayPolicy Number: Repository Effective Date: 08/03/2018 DAHLIA R Primary Insurance:SELF NOT GIVENUNK [place] [id number] PAY [facility] Number: Effective [facility] Date:2018-07-26 Repository 23819Ooo: (HP) 08/02/2018 DAHLIA R Primary Insurance:SELF NOT GIVENUNK [place] [id number] PAY [facility] Number: Effective [facility] Date:2018-07-26 Repository 37376Tnm: (HP) 08/01/2018 DAHLIA R Primary DAHLIA R [place] [id number] Insurance:MEDICARE A BARKESDOB: [facility] ONLYPolicy Number: [id number], [place] [id number] Repository [address]Qlo: (330) Date:2018-07-26 [phone] () 08/01/2018 Secondary NOT GIVENUNK [place] Insurance:SELF PAY [facility] Effective Repository Date:2018-07-26 07/31/2018 DAHLIA R Primary DAHLIA Hathaway Martita [id number] Insurance:MEDICARE A BARKESDOB: [facility] ONLYPolicy Number: [id number], [place] [id number] Repository [address]Deh: (330) Date:2018-07-26 [phone] () 07/31/2018 Secondary NOT GIVENUNK [place] Insurance:SELF PAY [facility] Number: Effective Repository Date:2018-07-26 07/30/2018 DAHLIA R Primary DAHLIA Hathaway Martita [id number] Insurance:MEDICARE A BARKESDOB: [facility] ONLYPolicy Number: [id number], [place] [id number] Repository 51800Pne: (330) Date:2018-07-26 [phone] () 07/30/2018 Secondary NOT GIVENUNK Martita Insurance:SELF PAY [facility] Number: Effective Repository Date:2018-07-26 07/29/2018 DAHLIA Hathaway Primary DAHLIA Hathaway Laramie [id number] Insurance:MEDICARE A BARKESDOB: [facility] ONLYPolicy Number: [id number], [place] [id number] Repository 09[address]Fpr: (330) Date:2018-07-26 [phone] () 07/29/2018 Secondary NOT GIVENUNK Martita Insurance:SELF PAY [facility] Number: Effective Repository Date:2018-07-26 07/29/2018 Dahlia Primary Dahlia BarkesDOB: [facility] BarkesDOB: Insurance:MedicarePoli [id number] System cy Number: Effective Repository [place] Date: [place], [place] [address]Umq: (HP) 07/28/2018 DAHLIA R Primary DAHLIA R Martita [id number] Insurance:MEDICARE A BARKESDOB: [facility] ONLYPolicy Number: [id number], [place] [id number] Repository 616[address]Zee: (330) Date:2018-07-26 [phone] (HP) 07/28/2018 Secondary NOT GIVENUNK Martita Insurance:SELF PAY [facility] Effective Repository Date:2018-07-26 07/27/2018 DAHLIA R Primary Insurance:SELF NOT GIVENUNK Martita [id number] PAY [facility] Number: [place] Date:2018-07-26 Repository 82241Wit: (HP) 07/26/2018 DAHLIA R Primary DAHLIA R Martita [id number] Insurance:MEDICARE A BARKESDOB: [facility] Number: [id number], [place] [id number] Repository [address]Luf: (330) Date:2018-07-26 [phone] (HP) 07/26/2018 Secondary NOT GIVENUNK [place]ie Insurance:SELF PAY [facility]: Effective Repository Date:2018-07-26 07/26/2018 Dahlia Primary Dahlia BarkesDOB: [facility] BarkesDOB: Insurance:MedicarePoli [id number] System cy Number: Effective [facility] Date: [place], [place] [address]Iuw: (HP) 07/26/2018 Secondary Dahlia BarkesDOB: [facility] Insurance:Self [id number] System PayPolicy Number: Repository Effective Date: 07/25/2018 DAHLIA R Primary DAHLIA R Martita [id number] Insurance:MEDICARE A BARKESDOB: [facility] Number: [id number], [place] [id number] Repository [address]Iab: (330) Date:2018-07-20 [phone] (HP) 07/25/2018 Secondary NOT GIVENUNK Martita Insurance:SELF PAY [facility]: Effective Repository Date:2018-07-20 07/24/2018 DAHLIA R Primary DAHLIA R Martita [id number] Insurance:MEDICARE A BARKESDOB: [facility] Number: [id number] [place], [place] [id number] Repository [address]Ieg: (047) Date:2018-07-20 [phone] (HP) 07/24/2018 Secondary NOT GIVENUNK [place] Insurance:SELF PAY [facility] Number: Effective Repository Date:2018-07-20 07/23/2018 DAHLIA R Primary Insurance:SELF NOT GIVENUNK [place] [id number] PAY [facility] Number: [place]:2018-07-20 Repository 74888Dap: (HP) 07/22/2018 DAHLIA R Primary Insurance:SELF NOT GIVENUNK [place] [id number] PAY [facility] Number: [place]:2018-07-20 Repository 51674Zrf: (HP) 07/21/2018 DAHLIA R Primary Insurance:SELF NOT GIVENUNK Martita [id number] PAY [facility] Number: [place]:2018-07-20 Repository 34278Gzc: (HP) 07/17/2018 Dahlia Primary Dahlia BarkjenyDOB: [facility] BarkDOB: Insurance:MedicarePoli [id number] System cy Number: Effective [facility] Date: [place], [place] [address]Cyj: (HP) 07/02/2018 Dahlia Primary Dahlia BarkjenyDOB: [facility] BarkDOB: Insurance:MedicarePoli [id number] System cy Number: Effective [facility] Date: [place], [place] [address]Wzn: (HP) 07/02/2018 Secondary Dahlia BarkesDOB: [facility] Insurance:Self [id number] System PayPolicy Number: Repository Effective Date: 07/01/2018 DAHLIA R [facility]ARE BARKESDOB: [facility] System APolicy Number: [id number] Repository [facility] [id number] [place] Date: [address]Ues: (HP) 06/30/2018 DAHLIA R Primary DAHLIA R Kashif Keita BARKESDOB: Insurance:MEDICARE BARKESDOB: [facility] INPATIENTPolicy [id number] [facility] Number: [facility] Repository [place] [id number] [place] [id number]: Date:Plan Name: [id number] () 05/08/2018 DAHLIA R Primary DAHLIA R [facility] [id number] Insurance[facility] [place] Rep[place] Number: [id number]: (487) [id number] [phone] (HP) Date: 12/28/2017 DAHLIA R Primary DAHLIA R Kashif Donaldzeinab BARKDOB: Insurance:MEDICARE BARKESDOB: [facility] OUTPATIENTPolic [id number] [place] [address] Number: [facility] Repository [place], [place] [id number] [place] [id number]: Date:Plan Name: [id number] ()
== END ==
LOC: MEDOUTP 13:48
PROVIDERS: Referring Provider Internal Medicine Infectious Disease; Visit Provider Internal Medicine Infectious Disease
DX: K65.1 Peritoneal abscess (principal)
CPT/HCPCS: 96365; 80053; 85025; J7050; A4216

== ENCOUNTER → 2018-08-04 13:39 | Outpatient (CLI) | payer SELFPAY ==
[2018-07-26 13:51] VITALS: BMI 24.3
[2018-08-03 14:15] VITALS: BMI 24.3
[2018-08-04 14:00] VITALS: BP 127/74; PULSE 84; RESP 16; TEMP 36.7; O2SAT 100; BMI 24.3
--- OUTSIDE RECORDS SUMMARY | 2018-09-20 09:39 | XMS RPT_ITS ---
:1970 Author Organization OHIP Support Name Relationship Address Phone NILDA MARINOT Unavailable [address] [place] [address] + [place] [address] BROWN, DINAH Unavailable Unavailable + D Unavailable Unavailable Unavailable BARKES, MARS Unavailable [address] [facility] + [place] [address] BROWN, DINAH Unavailable Unavailable + D Unavailable Unavailable Unavailable Barkes, Mars Unavailable Unavailable + Brown, Dinah Unavailable Unavailable + BARKES, MARS Unavailable [address] + [place] [address] BROWN, DINAH Unavailable Unavailable + D Unavailable Unavailable Unavailable BARKES, MARS Unavailable [address] + [place] [address] BROWN, DINAH Unavailable Unavailable + D Unavailable Unavailable Unavailable BARKES, MARS Unavailable [address] + [place] [address] BROWN, DINAH Unavailable Unavailable + D Unavailable Unavailable Unavailable BARKES, MARS Unavailable [address] + [place] [address] BROWN, DINAH Unavailable Unavailable + D Unavailable Unavailable Unavailable Barkes, Mars Unavailable Unavailable + Brown, Dinah Unavailable Unavailable + Barkes, Mars Unavailable Unavailable + Brown, Dinah Unavailable Unavailable + BARKES, MARS Unavailable [address] + [place] [address] BROWN, DINAH Unavailable Unavailable + D Unavailable Unavailable Unavailable BARKES, MARS Unavailable [address] [facility] [address] + [place] [address] BROWN, DINAH Unavailable Unavailable + D Unavailable Unavailable Unavailable Barkes, Mars Unavailable Unavailable + Brown, Dinah Unavailable Unavailable + BARKES, MARS Unavailable [address] + [place] [address] BROWN, DINAH Unavailable Unavailable + D Unavailable Unavailable Unavailable BARKES, MARS Unavailable [address] + [place] [address] BROWN, DINAH Unavailable Unavailable + D Unavailable Unavailable Unavailable BARKES, MARS Unavailable [address] + [place] [address] BROWN, DINAH Unavailable Unavailable + D Unavailable Unavailable Unavailable BARKES, MARS Unavailable [address] + [place] [address] BROWN, DINAH Unavailable Unavailable + D Unavailable Unavailable Unavailable BARKES, MARS Unavailable [address] + [place] [address] BROWN, DINAH Unavailable Unavailable + D Unavailable Unavailable Unavailable Barkes, Mars Unavailable Unavailable + Brown, Dinah Unavailable Unavailable + BARKES, MARS Unavailable [address] + [place] [address] BROWN, DINAH Unavailable Unavailable + D Unavailable Unavailable Unavailable BARKES, MARS Unavailable [address] + [place] [address] BROWN, DINHA Unavailable Unavailable + D Unavailable Unavailable Unavailable BARKES, MARS Unavailable [address] + [place] [address] BROWN, DINAH Unavailable Unavailable + D Unavailable Unavailable Unavailable BARKES, MARS Unavailable [address] + [place] [address] BROWN, DINAH Unavailable Unavailable + D Unavailable Unavailable Unavailable BARKES, MARS Unavailable [address] + [place] [address] BROWN, DINAH Unavailable Unavailable + D Unavailable Unavailable Unavailable BARKES, MARS Unavailable [address] + [place] [address] BROWN, DINAH Unavailable Unavailable + D Unavailable Unavailable Unavailable BARKES, MARS Unavailable [address] + [place] [address] BROWN, DINAH Unavailable Unavailable + D Unavailable Unavailable Unavailable BARKES, MARS Unavailable [address] [facility] [address] + [place] [address] BROWN, DINAH Unavailable Unavailable + D Unavailable Unavailable Unavailable BARKES, MARS Unavailable [address] + [place] [address] BROWN, DINAH Unavailable Unavailable + D Unavailable Unavailable Unavailable BARKES, MARS Unavailable [address] + [place] [address] BROWN, DINAH Unavailable Unavailable + D Unavailable Unavailable Unavailable BARKES, MARS Unavailable [address] + [place] [address] BROWN, DINAH Unavailable Unavailable + D Unavailable Unavailable Unavailable BARKES, MARS Unavailable [address] + [place] [address] BROWN, DINAH Unavailable Unavailable + D Unavailable Unavailable Unavailable BARKES, MARS Unavailable [address] + [place] [address] BROWN, DINAH Unavailable Unavailable + D Unavailable Unavailable Unavailable BARKES, MARS Unavailable [address] + [place] [address] BROWN, DINAH Unavailable Unavailable + D Unavailable Unavailable Unavailable BARKES, MARS Unavailable [address] + [place] [address] BROWN, DINAH Unavailable Unavailable + D Unavailable Unavailable Unavailable BARKES, MARS Unavailable [address] + [place] [address] BROWN, DINAH Unavailable Unavailable + D Unavailable Unavailable Unavailable BARKES, MARS Unavailable [address] + [place] [address] BROWN, DINAH Unavailable Unavailable + D Unavailable Unavailable Unavailable BARKES, MARS Unavailable [address] + [place] [address] BROWN, DINAH Unavailable Unavailable + D Unavailable Unavailable Unavailable BARKES, MARS Unavailable [address] + [place] [address] BROWN, DINAH Unavailable Unavailable + D Unavailable Unavailable Unavailable BARKES, MARS Unavailable [address] + [place] [address] BROWN, DINAH Unavailable Unavailable + D Unavailable Unavailable Unavailable BARKES, MARS Unavailable [address] + [place] [address] BROWN, DINAH Unavailable Unavailable + D Unavailable Unavailable Unavailable Barkes, Mars Unavailable Unavailable + Brown, Dinah Unavailable Unavailable + Barkes, Mars Unavailable Unavailable + Brown, Dinah Unavailable Unavailable + BARKES, MARS Unavailable [address] + [place] [address] BROWN, DINAH Unavailable Unavailable + D Unavailable Unavailable Unavailable BARKES, MARS Unavailable [address] + [place] [address] BROWN, DINAH Unavailable Unavailable + D Unavailable Unavailable Unavailable BARKES, MARS Unavailable [address] + [place] [address] BROWN, DINAH Unavailable Unavailable + D Unavailable Unavailable Unavailable BARKES, MARS Unavailable [address] + [place] [address] BROWN, DINAH Unavailable Unavailable + D Unavailable Unavailable Unavailable BARKES, MARS Unavailable [address] + [place] [address] BROWN, DINAH Unavailable Unavailable + D Unavailable Unavailable Unavailable BARKES, MARS Unavailable [address] + [place] [address] BROWN, DINAH Unavailable Unavailable + D Unavailable Unavailable Unavailable Barkes, Mars Unavailable Unavailable + Brown, Dinah Unavailable Unavailable + BARKES, MARS Unavailable [address] + [place] [address] BROWN, DINAH Unavailable Unavailable + D Unavailable Unavailable Unavailable BARKES, MARS Unavailable [address] + [place] [address] BROWN, DINAH Unavailable Unavailable + D Unavailable Unavailable Unavailable BARKES, MARS Unavailable [address] + [place] [address] BROWN, DINAH Unavailable Unavailable + D Unavailable Unavailable Unavailable Barkes, Mars Unavailable Unavailable + Brown, Dinah Unavailable Unavailable + BARKES, MARS Unavailable [address] + [place] [address] BROWN, DINAH Unavailable Unavailable + D Unavailable Unavailable Unavailable BARKES, MARS Unavailable [address] [place] [address] ST + [place] [address] BROWN, DINAH Unavailable Unavailable + D Unavailable [...] Unavailable [address] + [place], [place] [id number] BARKES, MARS Unavailable Unavailable Unavailable NOT GIVEN Unavailable Unavailable Unavailable BARKES, LANCE Unavailable [address] + [place], [place] [id number] BARKES, MARS Unavailable Unavailable Unavailable NOT GIVEN [...] TABOR Admitting Unavailable PROVIDER, UNKNOWN Consulting Unavailable NIALL PERSAUDIA Admitting Unavailable PENELOPE PERSAUD Attending Unavailable Jan [...] SOURCE 09/01/2018 Admitting Hypokalemia / Hashiguchi, Active [facility] Diagnosis E87.6(ICD-10) [facility] Repository 08/30/2018 Admitting 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, Active [facility]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 I, [facility] System unspecified / Repository G90.50(ICD-10) 08/30/2018 Admitting Personal history of [place], Active [facility] Diagnosis nicotine dependence [facility] System / Z87.891(ICD-10) Repository 08/30/2018 Admitting Fibromyalgia / [place], Active [facility] Diagnosis M79.7(ICD-10) [facility] Repository 08/30/2018 Admitting Hypothyroidism, [place], Active [facility] Diagnosis unspecified / [facility] System E03.9(ICD-10) Repository 08/30/2018 Admitting Presence of coronary [place], Active [facility] Diagnosis angioplasty implant [place] [facility] and graft / Repository Z95.5(ICD-10) 08/30/2018 [...] 08/04/2018 Admitting Other ascites / Hashiguchi, Active [facility] Diagnosis R18.8(ICD-10) [facility] Repository 08/04/2018 Admitting Abnormal findings on Hashiguchi, Active [facility] Diagnosis dx imaging of oth [facility] body structures / Repository R93.89(ICD-10) 08/04/2018 Admitting Abnormal findings on Hashiguchi, Active [facility] Diagnosis dx imaging of prt [facility] digestive tract / Repository R93.3(ICD-10) 08/04/2018 Admitting Candidiasis of vulva Hashiguchi, Active [facility] Diagnosis and vagina / [facility] B37.3(ICD-10) Repository 08/04/2018 Admitting Crohn's disease of Hashiguchi, Active [facility] Diagnosis both small and lg [facility] int w oth Repository complication / K50.818(ICD-10) 07/26/2018 Admitting Encntr for f/u exam Hashiguchi, Active [facility] Diagnosis aft trtmt for cond [facility] oth than malig Repository neoplm / Z09(ICD-10) 07/17/2018 Admitting Peritoneal abscess / Zaugg, Active [facility] Diagnosis K65.1(ICD-10) System Repository 07/17/2018 Admitting Urinary tract Zaugg, Active [facility] Diagnosis infection, site not System specified / Repository N39.0(ICD-10) 07/17/2018 Admitting Hypomagnesemia / Zaugg, Active [facility] Diagnosis E83.42(ICD-10) System Repository 07/17/2018 Admitting Cutaneous abscess of Zaugg, Active [facility] Diagnosis abdominal wall / System L02.211(ICD-10) Repository 07/17/2018 Admitting Sepsis, unspecified Zaugg, Active [facility] Diagnosis organism / System A41.9(ICD-10) Repository 07/17/2018 Admitting Crohn's disease of Zaugg, Active [facility] Diagnosis both small and large System intestine w abscess Repository / K50.814(ICD-10) 07/17/2018 Admitting Postprocedural Zaugg, Active [facility] Diagnosis hypothyroidism / System E89.0(ICD-10) Repository 07/17/2018 Admitting Adverse effect of Zaugg, Active [facility] Diagnosis unsp systemic System antibiotic, init Repository encntr / T36.95XA(ICD-10) 07/17/2018 Admitting correction (current) Zaugg, Active [facility] Diagnosis use of systemic System steroids / Repository Z79.52(ICD-10) 07/02/2018 Admitting Crohn's disease, Oscar, [facility] Diagnosis unspecified, with [facility] abscess / Repository K50.914(ICD-10) 07/02/2018 Admitting Unspecified severe Oscar, [facility] Diagnosis protein-calorie [facility] malnutrition / Repository E43(ICD-10) 07/02/2018 Admitting Athscl heart disease Oscar, [facility]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 Repository / I25.10(ICD-10) 07/02/2018 Admitting Body mass index Oscar, Active [facility] Diagnosis (BMI) 24.0-24.9, [facility] adult / Repository Z68.24(ICD-10) 07/02/2018 Admitting Abnormal weight loss Oscar, Active [facility] Diagnosis / R63.4(ICD-10) [facility] Repository 07/02/2018 Admitting Elevated white blood Oscar, [facility] Diagnosis cell count, [facility] unspecified / Repository D72.829(ICD-10) 07/02/2018 Admitting Anemia, unspecified Oscar, Active [facility] Diagnosis / D64.9(ICD-10) [facility] Repository 07/01/2018 Active Unknown / CORI, Active [place] UNK(Unknown) [facility] Other [place] Repository 05/08/2018 Admitting Unknown / NA Active [facility] diagnosis UNK(Unknown) Hospital Repository 12/28/2017 Admitting Vomiting, OMLEY, 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 unspecified / DO [facility] R1110(ICD-10) Hospital Repository 12/28/2017 Principle Noninfective OMLEY, 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 gastroenteritis and DO [facility] colitis, unspecified Hospital / K529(ICD-10) Repository 12/28/2017 Secondary Crohn's disease, OMLEY, 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 unspecified, without DO [facility] complications / Hospital K5090(ICD-10) Repository 12/28/2017 Secondary Atherosclerotic OMLEY, 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[facility] red cliff 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 Repository angina pectoris / I2510(ICD-10) 12/28/2017 Secondary Presence of coronary OMLEY, 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 angioplasty implant DO [facility] and graft / Hospital Z955(ICD-10) Repository PROCEDURES PROCEDURES No Procedure Records FoundRESULTS RESULTS RF URETHROCYSTOGRAPHY Observed: 09/07/2018 Status: F Source: [facility] VOIDING 9:51 AM SYSTEM REPOSITORY Patient Name: DAHLIA MARINO Fluoroscopy Exam Date/Time 09/05/2018 10:14:33 EST Exam RF Urethrocystography Voiding Ordering Physician MD DEUCE, MICHELINE Gaspar Accession Number [id number] CTP4 Codes 67639 () Reason For Exam concern for rectovaginal [...] 09/06/2018 Status: F Source: [facility] 2:00 PM [facility] [...] Lymph 1.55 Performed By: #### L100.0100 #### [facility] [address] [place], [address] COMPREHENSIVE METABOLIC Collected: 09/06/2018 Status: F Source: [facility] 2:00 PM [facility] [...] Normal 8 Performed By: #### L500.4050 #### [facility] [address] [place], [address] ED PROVIDER NOTE Observed: 09/01/2018 Status: F Source: [facility] 1:20 PM SYSTEM REPOSITORY This patient presented [...] W/DIFF, AUTOMATED Collected: 08/31/2018 Status: F Source: [place] 2:15 PM [facility] [...] Lymph 2.02 Performed By: #### L100.0100 #### [facility] [address] [place], [place], [address] COMPREHENSIVE METABOLIC Collected: 08/31/2018 Status: F Source: [facility] 2:15 PM [facility] [...] 8 GAP Performed By: #### L500.4050 #### [facility] [address] [place] [address]. [place], [address] Observed: 08/30/2018 Status: F Source: [facility] SURGICAL PATHOLOGY 8:22 AM SYSTEM REPOSITORY [id number] [facility] PATHOLOGY AND LABORATORY MEDICINE [address] [place] [address] FINAL SURGICAL PATHOLOGY REPORT NAME: DAHLIA MARINO : 1970 48 Y F BILLING NO.: [id number] LOCATION: 1XEO PROCEDURE 08/30/2018 DATE: SURGEON: MICHELINE [...] characteristics determined by the clinical laboratories of [facility]. They have not been cleared by the [...] negativity on decalcified specimens. Professional Performing Location: [address] [address]. DEPARTMENT OF PATHOLOGY AND LABORATORY MEDICINE [place], [place] [address] RF SMALL BOWEL W/ Observed: 08/25/2018 Status: F Source: [facility] SERIAL FILMS 2:30 PM SYSTEM REPOSITORY Patient Name: DAHLIA MARINO Fluoroscopy Exam Date/Time 08/25/2018 13:09:43 EST Exam RF Small Bowel w/ Serial Films Ordering Physician MD DEUCE, MICHELINE Gaspar Accession Number [id number] CTP4 Codes 97415 () Reason For Exam Crohn's Disease, rt. [...] 08/24/2018 Status: F Source: [facility] 2:23 PM [facility] HOSPITAL REPOSITORY TYPE CODE TESTS RESULT OUT [...] Lymph 2.16 Performed By: #### L100.0100 #### [facility] [address] [place], [address] COMPREHENSIVE METABOLIC Collected: 08/24/2018 Status: F Source: [facility] 2:23 PM [facility] [...] GAP 10 Performed By: #### L500.4050 #### [facility] [address] [place], [address] CBC W/DIFF, AUTOMATED Collected: 08/17/2018 Status: F [...] Lymph 1.59 Performed By: #### L100.0100 #### [facility] [address] [place], [place], [address] COMPREHENSIVE METABOLIC Collected: 08/17/2018 Status: F Source: [facility] 1:44 PM [facility] [...] GAP 8 Performed By: #### L500.4050 #### [facility] [address] [place], [address] CBC W/DIFF, AUTOMATED Collected: 08/10/2018 Status: F Source: [place] 2:22 PM [facility] [...] Lymph 2.17 Performed By: #### L100.0100 #### [facility] [address] [place], [address] COMPREHENSIVE METABOLIC Collected: 08/10/2018 Status: F Source: [facility] 2:22 PM [facility] [...] Normal 8 Performed By: #### L500.4050 #### [facility] [address] [facility] [place], [address] CT ABDOMEN/PELVIS W/ Observed: 08/04/2018 Status: F Source: [facility] CONTRAST 1:01 PM SYSTEM REPOSITORY Patient Name: DAHLIA MARINO CT Exam Date/Time 08/04/2018 12:09:[address] Abdomen/Pelvis w/ IV Contrast (IV Onl Ordering Physician MD MARCELA, JESSE Accession Number [id number] CPT4 Codes 45801 (CT Abdomen/Pelvis w/ IV Contrast (IV Onl), Q9967 (CT ISOVUE 370MG/[id number]) Reason For Exam RLQ phlegmon vs abscess [...] METABOLIC PANEL Collected: 08/04/2018 Status: F Source: [facility] 9:09 AM SYSTEM REPOSITORY TYPE CODE TESTS [...] Calcium 8.8 Performed By: #### BMP3 #### [facility] [address] [address] CBC W/DIFF, AUTOMATED Collected: 08/03/2018 Status: F Source: [place] 2:13 PM [facility] [...] 1.92 Performed By: #### L100.0100 #### [facility] [address] [place], [place], [address] COMPREHENSIVE METABOLIC Collected: 08/03/2018 Status: F Source: [facility] 2:13 PM [facility] [...] GAP Performed By: #### L500.4050 #### [facility] [address] [place] [address]. [place], [place], [id number] CBC W/DIFF, AUTOMATED Collected: 07/27/2018 Status: F Source: [place] 2:06 PM [facility] [...] 1.89 Performed By: #### L100.0100 #### [facility] [address] [place], [place], [address] COMPREHENSIVE METABOLIC Collected: 07/27/2018 Status: F Source: [facility] 2:06 PM [facility] [...] 7 Performed By: #### L500.4050 #### [facility] [address] [place], [address] CBC W/DIFF, AUTOMATED Collected: 07/21/2018 Status: F Source: [place] 2:35 PM [facility] [...] 1.50 Performed By: #### L100.0100 #### [facility] [address] [place], [address] COMPREHENSIVE METABOLIC Collected: 07/21/2018 Status: F Source: [facility] 2:35 PM [facility] [...] 4 Performed By: #### L500.4050 #### [facility] [address] [place] [address]. [place], [place], [id number] CR CHEST PORTABLE Observed: 07/20/2018 Status: F Source: [facility] 6:44 PM SYSTEM REPOSITORY Patient Name: DAHLIA MARINO Diagnostic Radiology Exam Date/Time 07/20/2018 16:55:27 EST Exam CR Chest Portable Ordering Physician DO PINON KATHRYN C Accession Number [id number] CPT4 Codes 81361 () Reason For Exam Line placement Report [...] DISCHARGE SUMMARY Observed: 07/20/2018 Status: F Source: [facility] 1:18 PM SYSTEM REPOSITORY Attestation signed by [...] (bowel resections x8), hypothyroidism, FM. Presented to [facility] ED on 07/17/18 with worsening abdominal pain. Patient was admitted to [facility] ED in 07/10, discharged 07/04/18. During [...] follow up with her GI doctor in [place], urged her to set up a follow up appointment soon after discharge. ID placed infusion orders for center in [place] with an appointment to start tomorrow. PROCEDURES: PICC placement CONSULTANTS: Interventional Radiology General Surgery Gastrointestinal Infectious Disease DISCHARGE MEDICATIONS: Dahlia Marino Home Medication Instructions MARLYN:[id number] Printed on:07/20/18 0105 Medication Information calcium-vitamin D (OSCAL) 250-125 MG-UNIT [...] Complexity: follow up within 7-14 calendar days (67663) [x] Severe Complexity: follow up within 7 calendar days (24001) FOLLOW UP TESTING, PENDING RESULTS OR REFERRALS AT TRANSITIONAL CARE VISIT: CT of abdomen after 2-3 weeks of abx [x] Yes [] No RECOMMENDED NEXT STEPS: Please follow up with Dr. Langston at the [facility] at 10am on 07/26/2018. Please follow up with your GI doctor in [place]. Please follow up with Dr. Micheline Tripathi of general surgery at [phone] as soon as possible for a follow up appointment in two weeks . DISPOSITION: Home Follow up with Dr. Langston at the [facility] at 10am on 07/26/2018. INSTRUCTIONS TO MA/SW: [...] frame. TIFERON Collected: 07/20/2018 Status: F Source: [facility] 11:02 AM SYSTEM REPOSITORY TYPE CODE TESTS RESULT OUT OF REFERENCE UNITS RANGE LAB QTF Negative NA Quantiferon Negative Performed By: #### QTF #### [facility] [address] [id number] HEMOGRAM Collected: 07/20/2018 Status: F Source: [place] 4:25 AM SYSTEM REPOSITORY TYPE CODE TESTS [...] By: #### HEMOG, BMP3M, MG3, PHOS3 #### [facility] [address] [place] [phone] BASIC METABOLIC PANEL Collected: 07/20/2018 Status: F Source: [facility] 4:25 AM SYSTEM REPOSITORY TYPE CODE TESTS [...] By: #### HEMOG, BMP3M, MG3, PHOS3 #### [facility] [address] [place] [address] MAGNESIUM Collected: 07/20/2018 Status: F Source: [facility] 4:25 AM SYSTEM REPOSITORY TYPE CODE TESTS RESULT OUT OF REFERENCE UNITS RANGE LAB MG3 1.6-2.3 mg/dL Low Magnesium 1.5 Performed By: #### HEMOG, BMP3M, MG3, PHOS3 #### [facility] [address] PHOSPHORUS Collected: 07/20/2018 Status: F Source: [facility] 4:25 AM SYSTEM REPOSITORY TYPE CODE TESTS RESULT OUT OF RANGE REFERENCE UNITS LAB PHOS3 2.5-4.5 mg/dL Normal Phosphorus 4.3 Performed By: #### HEMOG, BMP3M, MG3, PHOS3 #### [facility] [address] [place] [address] Observed: 07/19/2018 Status: F Source: [facility] CLOSTRIDIUM DIFFICILE 10:53 PM SYSTEM REPOSITORY PCR [...] be submitted. Performed By: #### CDPCR #### [facility] [employer] [facility] [employer] [address] [address] HEMOGRAM Collected: 07/19/2018 Status: F Source: [place] 5:29 AM SYSTEM REPOSITORY TYPE CODE TESTS [...] By: #### HEMOG, BMP3M, MG3, PHOS3 #### [facility] [address] [place] [phone] BASIC METABOLIC PANEL Collected: 07/19/2018 Status: F Source: [place] 5:29 AM SYSTEM REPOSITORY TYPE CODE TESTS [...] By: #### HEMOG, BMP3M, MG3, PHOS3 #### [facility] [address] [place] [phone] MAGNESIUM Collected: 07/19/2018 Status: F Source: [place] 5:29 AM SYSTEM REPOSITORY TYPE CODE TESTS RESULT OUT OF RANGE REFERENCE UNITS LAB MG3 1.6-2.3 mg/dL Normal Magnesium 1.6 Performed By: #### HEMOG, BMP3M, MG3, PHOS3 #### [facility] [address] [address] PHOSPHORUS Collected: 07/19/2018 Status: F Source: [place] 5:29 AM SYSTEM REPOSITORY TYPE CODE TESTS RESULT OUT OF RANGE REFERENCE UNITS LAB PHOS3 2.5-4.5 mg/dL Normal Phosphorus 3.4 Performed By: #### HEMOG, BMP3M, MG3, PHOS3 #### [facility] [employer] [address] [address] HEMOGRAM Collected: 07/18/2018 Status: F Source: [place] 5:02 AM SYSTEM REPOSITORY TYPE CODE TESTS [...] By: #### HEMOG, BMP3M, MG3, PHOS3 #### [facility] [address] [address] BASIC METABOLIC PANEL Collected: 07/18/2018 Status: F Source: [facility] 5:02 AM SYSTEM REPOSITORY TYPE CODE TESTS [...] By: #### HEMOG, BMP3M, MG3, PHOS3 #### [facility] [address] [place] [address] MAGNESIUM Collected: 07/18/2018 Status: F Source: [facility] 5:02 AM SYSTEM REPOSITORY TYPE CODE TESTS RESULT OUT OF RANGE REFERENCE UNITS LAB MG3 1.6-2.3 mg/dL Normal Magnesium 1.6 Performed By: #### HEMOG, BMP3M, MG3, PHOS3 #### [facility] [address] [place] [phone] PHOSPHORUS Collected: 07/18/2018 Status: F Source: [facility] 5:02 AM SYSTEM REPOSITORY TYPE CODE TESTS RESULT OUT OF RANGE REFERENCE UNITS LAB PHOS3 2.5-4.5 mg/dL Normal Phosphorus 3.5 Performed By: #### HEMOG, BMP3M, MG3, PHOS3 #### [facility] [address] [place] [phone] BASIC METABOLIC PANEL Collected: 07/17/2018 Status: F Source: [facility] 2:00 PM SYSTEM REPOSITORY TYPE CODE TESTS [...] Calcium 7.5 Performed By: #### BMP3 #### [facility] [address] [place], [place] LACTIC ACID Collected: 07/17/2018 Status: F Source: [facility] 11:25 AM SYSTEM REPOSITORY TYPE CODE TESTS RESULT OUT OF REFERENCE UNITS RANGE LAB LACT3 0.7-2.0 mmol/L Low Lactic Acid < 0.5 Performed By: #### LACT3 #### [facility] [address] [place], [place] Observed: 07/17/2018 Status: F Source: [facility] CULTURE URINE 8:28 AM SYSTEM REPOSITORY Order Comment: Specimen Source Comment:Urine, clean catch CULTURE URINE --> Status: F Normal urogenital elham present. Performed By: #### C/UR #### [facility]. [place], [place] CT ABDOMEN/PELVIS W/ Observed: 07/17/2018 Status: F Source: [facility] CONTRAST 5:09 AM SYSTEM REPOSITORY Patient Name: DAHLIA MARINO CT Exam Date/Time 07/17/2018 05:32:[address] Abdomen/Pelvis w/ IV Contrast (IV Onl Ordering Physician MD JAMIR, IRENE Gray Accession Number [id number] CPT4 Codes 58342 (CT Abdomen/Pelvis w/ IV Contrast (IV Onl), Q9967 (CT ISOVUE 370MG/[id number]) Reason For Exam recent abscess due to [...] 07/17/2018 5:09 Observed: 07/17/2018 Status: F Source: [facility] CULTURE BLOOD 4:57 AM SYSTEM REPOSITORY Order Comment: Specimen Source Comment:Blood CULTURE BLOOD --> Status: F No growth at 5 days. Performed By: #### C/BLD #### [facility] [address] [place] [phone] Observed: 07/17/2018 Status: F Source: [facility] CULTURE BLOOD (TWO) 4:01 AM SYSTEM REPOSITORY Order Comment: Specimen Source Comment:Blood CULTURE BLOOD (Two) --> Status: F No growth at 5 days. Performed By: #### C/BLT #### [facility] [address] [place] [phone] HEMOGRAM W/ AUTODIFF Collected: 07/17/2018 Status: F Source: [facility] 4:00 AM SYSTEM REPOSITORY TYPE CODE TESTS [...] LIPA4, LFT3, BMP3, CRP2, ESR, PCAL #### [facility] [address] [place] [phone] LACTIC ACID Collected: 07/17/2018 Status: F Source: [facility] 4:00 AM SYSTEM REPOSITORY TYPE CODE TESTS RESULT OUT OF RANGE REFERENCE UNITS LAB LACT3 0.7-2.0 mmol/L Normal Lactic Acid 1.2 Performed By: #### HEMDF, LACT3, LIPA4, LFT3, BMP3, CRP2, ESR, PCAL #### [facility] [address] [place] [phone] LIPASE Collected: 07/17/2018 Status: F Source: [facility] 4:00 AM SYSTEM REPOSITORY TYPE CODE TESTS RESULT OUT OF RANGE REFERENCE UNITS LAB LIPA4 23-300 U/L Normal Lipase 38 Performed By: #### HEMDF, LACT3, LIPA4, LFT3, BMP3, CRP2, ESR, PCAL #### [facility] [address] [place] [phone] HEPATIC FUNCTION Collected: 07/17/2018 Status: F Source: [facility] 4:00 AM SYSTEM REPOSITORY TYPE CODE TESTS [...] LIPA4, LFT3, BMP3, CRP2, ESR, PCAL #### [facility] [address] [place] [phone] BASIC METABOLIC PANEL Collected: 07/17/2018 Status: F Source: [facility] 4:00 AM SYSTEM REPOSITORY TYPE CODE TESTS [...] LIPA4, LFT3, BMP3, CRP2, ESR, PCAL #### [facility] [address] [place] [address] C-REACTIVE PROTEIN Collected: 07/17/2018 Status: F Source: [facility] 4:00 AM SYSTEM REPOSITORY TYPE CODE TESTS RESULT OUT OF REFERENCE UNITS RANGE LAB 2CRP 0.0-6.0 mg/L High C-Reactive 11.6 Protein Result Comment: . Performed By: #### HEMDF, LACT3, LIPA4, LFT3, BMP3, CRP2, ESR, PCAL #### [facility] [address] [place] [phone] SED RATE Collected: 07/17/2018 Status: F Source: [facility] 4:00 AM SYSTEM REPOSITORY TYPE CODE TESTS RESULT OUT OF RANGE REFERENCE UNITS LAB ESR 0-20 mm/h High Sed Rate 27 Performed By: #### HEMDF, LACT3, LIPA4, LFT3, BMP3, CRP2, ESR, PCAL #### [facility] [address] [place] [phone] PROCALCITONIN Collected: 07/17/2018 Status: F Source: [facility] 4:00 AM SYSTEM REPOSITORY TYPE CODE TESTS RESULT OUT OF REFERENCE UNITS RANGE LAB PRO <0.10 ng/mL Procalcitonin Normal < 0.10 LAB INT3 NA Interpretation See Below Result Comment: PCT <0.50 = Low risk of severe sepsis and/or septic shock. PCT >2.00 = High risk of severe sepsis and/or septic shock. Performed By: #### HEMDF, LACT3, LIPA4, LFT3, BMP3, CRP2, ESR, PCAL #### [facility] [address] [place] [phone] ED PROVIDER NOTE Observed: 07/17/2018 Status: F Source: [facility] 2:30 AM SYSTEM REPOSITORY [facility] EMERGENCY DEPT eMERGENCY dEPARTMENT eNCOUnter Pt Name: Dahlia Marino Birthdate 1970 Date of evaluation: 07/17/2018 Provider: Irene Marlow MD Chief Complaint: No chief complaint on file. [place]: Dahlia Marino is a 48 y.o. female [...] antibiotics in the hospital. She is from [place] but was referred here because the hospital [...] by myself in the absence of a barrel rifler) none Chart review shows recent radiographs: Ct Abdomen Pelvis W Contrast Result Date: 07/02/2018 Patient Name: DAHLIA MARINO ---CT--- Exam Date/Time 07/02/2018 07:47:[address] Abdomen/Pelvis w/ IV Contrast (IV Onl Ordering Physician MD IVIS, MPH, MICHELINE Accession Number [id number] CPT4 Codes 49474 (CT Abdomen/Pelvis w/ IV Contrast (IV Onl), Q9967 (CT ISOVUE 370MG/[id number]&ML&1) Reason For Exam Crohns flare, known abscess [...] PROVIDER NOTE Observed: 07/17/2018 Status: F Source: [facility] 2:30 AM SYSTEM REPOSITORY Emergency Department Encounter Location: [facility] EMERGENCY DEPT Patient: Dahlia Marino : [...] # 1.4 1.0 - 4.3 10*3/uL Absolute Choct[place] # 1.2 (H) 0.0 - 0.8 10*3/uL [...] eGFR >60.0 >60 mL/min EGFR IF NonAfrican Trinidadian >60.0 >60 mL/min Calcium 8.1 (L) 8.4 [...] Physician MD JAMIR, IRENE Gray Accession Number [id number] CPT4 Codes 60261 (CT Abdomen/Pelvis w/ IV Contrast (IV Onl), Q9967 (CT ISOVUE 370MG/[id number]&ML&1) Reason For Exam recent abscess due to [...] are mis-transcribed.) Bon Mercedes MD Acute Care [facility] Bon Mercedes MD 07/17/18 0551 DISCHARGE SUMMARY Observed: 07/04/2018 Status: F Source: [facility] 11:29 AM SYSTEM REPOSITORY Attestation signed by [...] x8, on gregory), hypothyroidism, fibromyalgia presented to [facility] w/ progressive 6 week hx of abdominal pain. She was first seen at [facility] in [place], [place] 6wks prior to admission for abdominal [...] in the urine. CT abdomen done at [facility] (07/01/18) which showed a complex inflammatory collection/mass in anterior RLQ abscess. Patient was then transferred to [facility] the same day for further management and a second opinion. Patient and then requested transfer to [facility] as they have had family treated [...] DISCHARGE MEDICATIONS: Dahlia Marino Home Medication Instructions MARLYN:[id number] Printed on:07/05/18 1000 Medication Information adalimumab (HUMIRA) 40 MG/0.8ML injection [...] Complexity: follow up within 7-14 calendar days (02537) [] Severe Complexity: follow up within 7 calendar days (35284) FOLLOW UP TESTING, PENDING RESULTS OR REFERRALS [...] W/ AUTODIFF Collected: 07/04/2018 Status: F Source: [facility] 5:08 AM SYSTEM REPOSITORY TYPE CODE TESTS [...] #### HEMDF, BMP3M, MG3, PHOS3, LFT3 #### [facility] [address] [place] [address] BASIC METABOLIC PANEL Collected: 07/04/2018 Status: F Source: [facility] 5:08 AM SYSTEM REPOSITORY TYPE CODE TESTS [...] #### HEMDF, BMP3M, MG3, PHOS3, LFT3 #### [facility] [address] [place] [phone] MAGNESIUM Collected: 07/04/2018 Status: F Source: [facility] 5:08 AM SYSTEM REPOSITORY TYPE CODE TESTS RESULT OUT OF RANGE REFERENCE UNITS LAB MG3 1.6-2.3 mg/dL Normal Magnesium 1.8 Performed By: #### HEMDF, BMP3M, MG3, PHOS3, LFT3 #### [facility] [address] [place] [phone] PHOSPHORUS Collected: 07/04/2018 Status: F Source: [facility] 5:08 AM SYSTEM REPOSITORY TYPE CODE TESTS RESULT OUT OF RANGE REFERENCE UNITS LAB PHOS3 2.5-4.5 mg/dL Normal Phosphorus 3.8 Performed By: #### HEMDF, BMP3M, MG3, PHOS3, LFT3 #### [facility] [address] [place] [phone] HEPATIC FUNCTION Collected: 07/04/2018 Status: F Source: [facility] 5:08 AM SYSTEM REPOSITORY TYPE CODE TESTS [...] #### HEMDF, BMP3M, MG3, PHOS3, LFT3 #### [facility] [address] [place] [phone] HEMOGRAM W/ AUTODIFF Collected: 07/03/2018 Status: F Source: [facility] 2:31 AM SYSTEM REPOSITORY TYPE CODE TESTS [...] By: #### HEMDF, MG3, PHOS3, BMP3M #### [facility] [address] [place] [address] MAGNESIUM Collected: 07/03/2018 Status: F Source: [facility] 2:31 AM SYSTEM REPOSITORY TYPE CODE TESTS RESULT OUT OF RANGE REFERENCE UNITS LAB MG3 1.6-2.3 mg/dL Normal Magnesium 2.1 Performed By: #### HEMDF, MG3, PHOS3, BMP3M #### [facility] [place] PHOSPHORUS Collected: 07/03/2018 Status: F Source: [facility] 2:31 AM SYSTEM REPOSITORY TYPE CODE TESTS RESULT OUT OF RANGE REFERENCE UNITS LAB PHOS3 2.5-4.5 mg/dL Normal Phosphorus 3.8 Performed By: #### HEMDF, MG3, PHOS3, BMP3M #### [facility] [address] [place] [address] BASIC METABOLIC PANEL Collected: 07/03/2018 Status: F Source: [facility] 2:31 AM SYSTEM REPOSITORY TYPE CODE TESTS [...] By: #### HEMDF, MG3, PHOS3, BMP3M #### [facility] [address] [place] [address] URINALYSIS,MACRO Collected: 07/03/2018 Status: F Source: [facility] 2:23 AM SYSTEM REPOSITORY TYPE CODE TESTS RESULT OUT OF REFERENCE UNITS RANGE LAB APPUR Clear NA Appearance Cloudy LAB COLUR Lt. Yellow NA Color Yellow LAB USG 1.005-1.030 NA Specific Normal Weston,Urine 1.015 LAB UPH 5.0-8.0 NA pH,Urine Normal [...] 250 Performed By: #### UAMAC, UAMIC #### [facility] [address] [place] [address] URINALYSIS,MICROSCOPIC Collected: Status: F Source: [employer] 07/03/2018 2:23 AM HEALTH SYSTEM REPOSITORY TYPE CODE TESTS RESULT OUT OF REFERENCE UNITS RANGE LAB WBCU 0-5 /[HPF] 26 WBC,Urine - 50 LAB RBCU 0-2 /[HPF] 11 RBC,Urine - 25 LAB EPIU 3-5 /[HPF] 0 Epithelial Cells - 2 LAB LILLIAM Negative NA Bacteria Many (51-100) LAB AMPH Negative NA Amorphous Moderate Phosphates (6-50) Performed By: #### UAMAC, UAMIC #### [facility] [place] [address] Observed: 07/03/2018 Status: F Source: [facility] CULTURE URINE 2:23 AM SYSTEM REPOSITORY Order Comment: Specimen Source Comment:Urine, clean catch CULTURE URINE --> Status: F No growth (<1,000 CFU/ml). Performed By: #### C/UR #### [facility] [address] [address] [address] ABDOMEN/PELVIS W/ Observed: 07/02/2018 Status: F Source: [facility] CONTRAST 8:06 AM SYSTEM REPOSITORY Patient Name: DAHLIA MARINO CT Exam Date/Time 07/02/2018 07:47:[address] Abdomen/Pelvis w/ IV Contrast (IV Onl Ordering Physician MD IVIS, MPH, MICHELINE Reyes Number [id number] CPT4 Codes 15719 (CT Abdomen/Pelvis w/ IV Contrast (IV Onl), Q9967 (CT ISOVUE 370MG/[id number]) Reason For Exam Crohns flare, known abscess [...] 8:06 URINALYSIS,MACRO Collected: 07/02/2018 Status: F Source: [facility] 1:59 AM SYSTEM REPOSITORY TYPE CODE TESTS RESULT OUT OF REFERENCE UNITS RANGE LAB APPUR Clear NA Appearance Clear LAB COLUR Lt. Yellow NA Color P. Yellow LAB USG 1.005-1.030 NA Specific Normal Weston,Urine 1.010 LAB UPH 5.0-8.0 NA pH,Urine Normal [...] 25 Performed By: #### UAMAC, UAMIC #### [employer] [address] [address] URINALYSIS,MICROSCOPIC Collected: Status: F Source: [employer] 07/02/2018 1:59 AM HEALTH SYSTEM REPOSITORY TYPE CODE TESTS RESULT OUT OF REFERENCE UNITS RANGE LAB WBCU 0-5 /[HPF] 11 WBC,Urine - 25 LAB RBCU 0-2 /[HPF] 3 RBC,Urine - 5 LAB EPIU 3-5 /[HPF] 3 Epithelial Cells - 5 LAB LILLIAM Negative NA Bacteria Moderate (6-50) Performed By: #### UAMAC, UAMIC #### [facility] [address] [place] [address] Observed: 07/02/2018 Status: F Source: [employer] BLOOD 1:45 AM SYSTEM REPOSITORY Order Comment: Specimen Source Comment:Blood CULTURE BLOOD --> Status: F No growth at 5 days. Performed By: #### C/BLD #### [facility] [address] [place] [address] Observed: 07/02/2018 Status: F Source: [employer] BLOOD (TWO) 1:45 AM SYSTEM REPOSITORY Order Comment: Specimen Source Comment:Blood CULTURE BLOOD (Two) --> Status: F No growth at 5 days. Performed By: #### C/BLT #### [facility] [address] HEMOGRAM W/ AUTODIFF Collected: 07/02/2018 Status: F Source: [facility] 1:37 AM SYSTEM REPOSITORY TYPE CODE TESTS [...] LACT3, TSH5, CMP3, MG3, FT4M, TROPN #### [facility] [address] [place] [phone] PROTHROMBIN TIME Collected: 07/02/2018 Status: F Source: [facility] 1:37 AM SYSTEM REPOSITORY TYPE CODE TESTS [...] LACT3, TSH5, CMP3, MG3, FT4M, TROPN #### [facility] [address] [place] [phone] LACTIC ACID Collected: 07/02/2018 Status: F Source: [facility] 1:37 AM SYSTEM REPOSITORY TYPE CODE TESTS RESULT OUT OF REFERENCE UNITS RANGE LAB LACT3 0.7-2.0 mmol/L Low Lactic Acid 0.6 Performed By: #### HEMDF, PT, LACT3, TSH5, CMP3, MG3, FT4M, TROPN #### [facility] [address] [place] [phone] THYROID STIM. Collected: 07/02/2018 Status: F Source: [facility] HORMONE 1:37 AM SYSTEM REPOSITORY TYPE CODE TESTS RESULT OUT OF REFERENCE UNITS RANGE LAB TSH5 0.465-4.680 u[IU]/mL Low Thyroid Stim. 0.175 Hormone Performed By: #### HEMDF, PT, LACT3, TSH5, CMP3, MG3, FT4M, TROPN #### [facility] [address] [place] [phone] COMP METABOLIC PANEL Collected: 07/02/2018 Status: F Source: [facility] 1:37 AM SYSTEM REPOSITORY TYPE CODE TESTS [...] LACT3, TSH5, CMP3, MG3, FT4M, TROPN #### [facility] [address] [place] [phone] MAGNESIUM Collected: 07/02/2018 Status: F Source: [facility] 1:37 AM SYSTEM REPOSITORY TYPE CODE TESTS RESULT OUT OF REFERENCE UNITS RANGE LAB MG3 1.6-2.3 mg/dL Low Magnesium 1.5 Performed By: #### HEMDF, PT, LACT3, TSH5, CMP3, MG3, FT4M, TROPN #### [facility] [address] [place] [phone] FREE T4 Collected: 07/02/2018 Status: F Source: [facility] 1:37 AM SYSTEM REPOSITORY TYPE CODE TESTS RESULT OUT OF RANGE REFERENCE UNITS LAB FT4M 0.78-2.19 ng/dL Normal Free T4 1.87 Performed By: #### HEMDF, PT, LACT3, TSH5, CMP3, MG3, FT4M, TROPN #### [facility] [address] [place] [address] TROPONIN I Collected: 07/02/2018 Status: F Source: [facility] 1:37 AM SYSTEM REPOSITORY TYPE CODE TESTS RESULT OUT OF RANGE REFERENCE UNITS LAB TROP4 0.000-0.034 ng/mL Normal Troponin I < 0.012 Result Comment: 0.046 - 0.400 = Indeterminate > 0.400 = Consider Myocardial Injury Performed By: #### HEMDF, PT, LACT3, TSH5, CMP3, MG3, FT4M, TROPN #### [facility] [address] [place] [address] ED PROVIDER NOTE Observed: 07/02/2018 Status: F Source: [facility] 12:02 AM SYSTEM REPOSITORY Emergency Department Encounter [...] past few weeks, was seen at [facility]. yesterday, CT there showed an intra-abdominal mass [...] otherwise acutely negative except as in the [place]. Past History Past Medical History: Diagnosis Date [...] # 1.6 1.0 - 4.3 10*3/uL Absolute [place]ct[place] # 1.4 (H) 0.0 - 0.8 10*3/uL [...] eGFR >60.0 >60 mL/min EGFR IF NonAfrican Trinidadian >60.0 >60 mL/min Calcium 8.0 (L) 8.4 [...] UA P. Yellow Lt. Yellow NA Specific West[place], Urine 1.010 1.005 - 1.030 NA pH, [...] me Rhythm: normal sinus Rate: normal, 83 Arbuckle: normal Ectopy: none Conduction: normal ST Segments: [...] [facility] only got the CAT scan [...] PROVIDER NOTE Observed: 07/02/2018 Status: F Source: [facility] 12:02 AM SYSTEM REPOSITORY Emergency Department Encounter [facility] EMERGENCY DEPT Patient: Dahlia Marino : 1970 Date of Evaluation: 07/02/2018 ED Provider: BLAIR HOLDEN CNP As the [id number], I performed a medical screening history and [...] per patient and family. They were at [facility] earlier this morning. Per report from family CT was done with oral contrast finding possible abscess below her liver. He was transferred [facility] without their knowledge. Family states they thought she was coming here. He was at [facility] day and that concerns about her [...] NURSING PROG Observed: 07/01/2018 Status: COMPLETED Source: [facility] 11:34 PM [facility] REPOSITORY HNO ID: [id number] Author: Meme (Rn) EZEKIEL Ramsay Service: Emergency [...] this. I personally spoke with Winter Paez HYDRAULIC DESIGN ENGINEER, requested further order to check labs including [...] bleeding. PROGRESS Observed: 07/01/2018 Status: COMPLETED Source: [facility] 11:15 PM [facility] REPOSITORY HNO ID: [id number] Author: Jeannine (Clayton) BLAIR Womack.CLAYTON Service: (none) Author Type: Nurse Practitioner Type: Progress Notes Filed: 07/01/2018 11:51 PM Note Text: CTBS for patient requesting to leave AMA. Nursing piping supervisor on floor speaking with patient and [...] of testing. Family is taking patient to [facility] ED at this time. Pt is alert and oriented x 3, capable of making decisions. AMA paperwork filled out and signed at bedside. Jeannine Womack CNP NURSING PROG Observed: 07/01/2018 Status: COMPLETED Source: [facility] 9:25 PM CLINIC OTHER CAMPUS REPOSITORY HNO ID: [id number] Author: Ester (Rn) EZEKIEL Kamara Service: (none) [...] AND PELVIS Observed: 07/01/2018 Status: F Source: [facility] WITH CONTRAST 8:57 PM HEALTH SYSTEM REPOSITORY Performed at [facility] APPROVED BY: Zia Maurer MD Exam [...] advised. CONSULT Observed: 07/01/2018 Status: COMPLETED Source: [facility] 4:02 PM [facility] REPOSITORY [facility] ID: [id number] Author: Misty Mcdonald Service: General Surgery Author [...] returned and got worse. Patient presented to [facility] ED where CT Abd/Pelvis showed a possible [...] CONSULT PROG Observed: 07/01/2018 Status: COMPLETED Source: [facility] 3:57 PM CLINIC OTHER CAMPUS REPOSITORY O ID: [id number] Author: Kamran Colon Service: Gastroenterology Author Type: [...] ago per patient) who presented to the [facility] ED for abdominal pain. She stated she [...] she called EMS who transferred her to [facility]. In the ED her abdominal CT revealed possible abscess vs neoplasms so she was transferred to [facility]. She denied melena, hematochezia, hematemesis, and [...] about 3-4 years ago (no record in [facility]). FUNCTIONAL STATUS: Independent PAST MEDICAL HISTORY [...] patient 3-4 years ago (no record in [facility]) Assessment AND Plan: Repeat Abdominal CT [...] patient 3-4 years ago (no record in [facility]) Assessment AND Plan: Need records from [employer] [facility] Loomis in [place]. SIGNATURE: Kamran Colon APRN.CNP PATIENT NAME: Dahlia Marino DATE: July 01, 2018 TIME: 3:57 PM PAGER: NUTRITION Observed: 07/01/2018 Status: COMPLETED Source: [facility] 3:47 PM CLINIC OTHER CAMPUS REPOSITORY HNO ID: [id number] Author: Argentina Zuluaga RD (Ld) Service: Nutrition [...] gm protein per serving and vanilla [facility] QD, to provide 530 kcal and 22 [...] nutritional status Reason for Assessment: Consult from TELECOMMUNICATIONS SPECIALIST for patient with 28 lbs weight loss in 4 weeks. Per HPI: This is a 47 year old female with PMH of crohns, hypothyroid, wallace, ape, liver sx d/t infection who presents to the [facility] from [facility]. Pt called EMS and had them take [...] ENSURE CLEAR MIXED PEREZ Supplement 2: BOOST [facility] VANILLA Lines and Drains: Peripheral 07/01/18 1000 [...] Admitted) 07/01/18 0700 - 07/02/18 0659 Shift 2705-4513 4964-9291 24 Hour Total 5340-9900 4087-1887 6669-7187 24 Hour Total I N T A [...] July 01, 2018 TIME: 4:25 PM PAGER: [phone] CEA Collected: 07/01/2018 Status: F Source: [facility] 1:55 PM HEALTH SYSTEM REPOSITORY TYPE CODE TESTS RESULT OUT OF RANGE REFERENCE UNITS LAB CEA(LOINC) 0.0-3.0 ng/mL CEA 2.5 Result Comment: The reference range shown is for adult non-smokers. The range for smokers is 0-5.0 Testing performed by Chemiluminescence LOCI. Performed By: #### CEA #### [place] [address] MAGNESIUM BLOOD Collected: 07/01/2018 Status: F Source: [facility] 1:55 PM HEALTH SYSTEM REPOSITORY TYPE CODE TESTS RESULT OUT OF REFERENCE UNITS RANGE LAB MAG(LOINC) 1.6-2.6 mg/dL Magnesium Blood 1.6 Performed By: #### MAG #### [place] [address] Observed: 07/01/2018 Status: F Source: [facility] CULT BLOOD 12:00 PM HEALTH SYSTEM REPOSITORY Test performed at [facility] No growth Performed By: #### C_BLO #### [place] [address] HEMOGRAM Collected: 07/01/2018 Status: F Source: [facility] 11:55 AM HEALTH SYSTEM REPOSITORY TYPE CODE [...] MPV 9.8 Performed By: #### CBC1 #### [place] [address] LACTIC ACID Collected: 07/01/2018 Status: F Source: [facility] 11:55 AM HEALTH SYSTEM REPOSITORY TYPE CODE TESTS RESULT OUT OF REFERENCE UNITS RANGE LAB LAC(LOINC) 0.4-2.0 mEq/L Lactic Acid 0.4 Performed By: #### LAC #### [place] [address] PHOSPHORUS BLOOD Collected: 07/01/2018 Status: F Source: [facility] 11:55 AM HEALTH SYSTEM REPOSITORY TYPE CODE TESTS RESULT OUT OF REFERENCE UNITS RANGE LAB PHOS(LOINC 2.5-4.9 mg/dL ) Phosphorus Blood 3.8 Performed By: #### PHOS #### [place] [address] CRP Collected: 07/01/2018 Status: F Source: [facility] 11:55 AM HEALTH SYSTEM REPOSITORY TYPE CODE TESTS RESULT OUT OF RANGE REFERENCE UNITS LAB CRP3(LOINC) 0.00-0.30 mg/dL High CRP 8.04 Performed By: #### CRP3 #### [facility] [address] [place] [address] COMPREHENSIVE PANEL Collected: 07/01/2018 Status: F Source: [facility] 11:55 AM HEALTH SYSTEM REPOSITORY TYPE CODE [...] Gap 12 Performed By: #### P14 #### [place] [address] MDRD GFR Collected: 07/01/2018 Status: F Source: [facility] 11:[facility] REPOSITORY TYPE CODE TESTS RESULT OUT OF RANGE REFERENCE UNITS LAB GFRFN(LOINC >60mL/min/1.73m ) 2 eGFR >60 Result Comment: If the patient is , multiply the result by 1.210. Performed By: #### GFR #### [facility] [address] [place] [address] PROTIME Collected: 07/01/2018 Status: F Source: [place] [id number] [place] [address] SYSTEM REPOSITORY TYPE CODE TESTS RESULT OUT OF REFERENCE UNITS RANGE LAB PTI(LOINC) 9.7-13.0 sec Prothrombin Time 11.7 LAB INR(LOINC) 0.90-1.30 INR 1.14 Result Comment: Note: Reference Range Change Vitamin K Antagonist (VKA) Therapeutic Range: INR 2 to 3 (Target INR of 2.5) Note: For patients treated with VKA drugs, such as warfarin, the [place] [employer] 2012 Guideline recommends [...] 70: 252-289 Performed By: #### PT #### [place] [address] ACTIVATED PTT Collected: 07/01/2018 Status: F Source: [facility] 11:[address] [place] [address] SYSTEM REPOSITORY TYPE CODE TESTS RESULT OUT [...] laboratory APTT reagent in use throughout the [facility]. Performed By: #### APTT #### [facility] [address] [place], [place] [address] SED RATE Collected: 07/01/2018 Status: F Source: [facility] 11:55 AM HEALTH SYSTEM REPOSITORY TYPE CODE TESTS RESULT OUT OF RANGE REFERENCE UNITS LAB ESR(LOINC) 0-20 mm/hr High Sed Rate 38 Performed By: #### ESR #### [facility] [address] [place], [place] [address] HISTORY PHYSICAL Observed: 07/01/2018 Status: COMPLETED Source: [facility] 11:14 AM CLINIC OTHER CAMPUS REPOSITORY HNO ID: [id number] Author: Meryl Hogan Service: Hospital Medicine Author Type: Nurse Practitioner Type: HANDP Filed: 07/01/2018 11:50 AM Note Text: Attestation signed by Jose Altamirano at 2018 5:50 PM (Updated) I have personally seen and examined the patient. I agree with the TELECOMMUNICATIONS SPECIALIST's note with following addition. Ms Marino, a 47 years old lady who has hx of UC and is on Humira Q week (last dose 2 weeks ago) under care of GI (? [facility]) and multiple bowel surgeries including bowel resection, has abdominal pain for more than a month initially in lower part now generalized worse with food. Has fever in the last few days. Normal BM (reported diarrhea to [facility]), no nausea. Was treated with flagyl for a week a month ago. Last c scope > 5 years ago and last surgery > 5 years ago. She presented to [facility] where she was noted to have leukocytosis [...] 2 weeks ago), under the care of patient account representative ? Dr Bender 4. Hx of multiple [...] sx d/t infection who presents to the [facility] from [facility]. Pt called EMS and had them take [...] July 01, 2018 TIME: 11:15 AM PAGER: [id number] CT ABDOMEN/PELVIS W Observed: 07/01/2018 Status: F [facility] 12:42 AM [place] [id number] Patient: DAHLIA MARINO Phone#: : 1970 Age: 47 Gender: F Pt. Type: ER Account: [id number] Location: 2 Ordering: DOROTEO TABOR Exam Date: 07/01/2018/0:28 Family Phys: MARLO Pj LANG Charge Code: 119281 Physician: [place] Order #: [id number] DLP Dose#: 9.80 PROCEDURE: CT ABDOMEN/PELVIS WITH [...] 47 Gender: F Pt. Type: ER Account: [id number] Location: 052 Ordering: DOROTEO TABOR Exam Date: 07/01/2018/0:28 Family Phys: MARLO LANG Charge Code: 997820 Physician: [place] Order #: [id number] DLP Dose#: 9.80 ABDOMINAL WALL: Normal. No [...] 8:50 URINALYSIS Collected: 07/01/2018 Status: F Source: [facility] 12:34 AM [facility] REPOSITORY TYPE CODE TESTS RESULT OUT OF [...] Urobilinog(LOINC) NORMAL: NORMAL Urobilinog NORM LAB Sp [place]on(LOINC) NORMAL: 1.010-1.030 Sp [place]on 1.015 LAB Nitrite(LOINC) NORMAL: NEGATIVE Nitrite NEG [...] LAB Yeast(LOINC) Yeast NONE Performed By: #### [id number] #### [facility],[address] [place] [address] Observed: 06/30/2018 Status: F Source: [facility] CULTURE BLOOD 11:25 PM [facility] REPOSITORY CULTURE BLOOD CULTURE BLOOD SET: 2 of 2 24HOUR REPORT NEGATIVE 48HOUR REPORT NEGATIVE 72HOUR REPORT NEGATIVE M I C R O B I O L O G Y R E P O R T FINAL Antimicrobial Susceptibility and Organism Identification Report Specimen Number : [id number] Requested : 06/30/18 Specimen Source : BLOOD Collected : 06/30/18 23:25 [place] [facility] [place] : Emergency Room Received : 06/30/18 23:25 Requesting Physician : christina Patient/Specimen Tests and Comments Specimen Comments FINAL REPORT: No Growth at 5 Days Tech : Source : BLOOD ID # : [id number] FINAL Report Date : / / : Collected : 06/30/18 23:25 07/06/18.1142.BKO. 07/06/18.1142.BKO.COMPLETE Performed By: #### [id number] #### [facility],[address] [place] [address] CBC Collected: 06/30/2018 Status: F Source: [facility] 10:45 PM [facility] REPOSITORY TYPE CODE TESTS RESULT OUT OF [...] x10EE3/U L Neut # High 10.00 LAB [place] #(LOINC) 0.20 - 1.00 x10EE3/U L [place] # High 1.30 LAB EO #(LOINC) 0.00 - 0.50 x10EE3/U L EO # 0.00 LAB Baso #(LOINC) 0.00 - 0.10 x10EE3/U L Baso # 0.10 LAB MANUAL DIFF([facility]) MANUAL DIFF N/A LAB MORPHOLOGY(INC ) MORPHOLOGY N/A Result Comment: {CD] Performed By: #### [id number] #### [place] [address] LACTATE Collected: 06/30/2018 Status: F Source: [facility] 10:45 PM [facility] REPOSITORY TYPE CODE TESTS RESULT OUT OF REFERENCE UNITS RANGE LAB LACTATE(MESSI 4.5 - 18.0 mg/dL NC) Low LACTATE 4.3 Performed By: #### [id number] #### [place] [address] CMP WITH EGFR Collected: 06/30/2018 Status: F Source: [facility] 10:45 PM [facility] REPOSITORY TYPE CODE TESTS RESULT OUT OF [...] OF AGE AND OLDER. Performed By: #### [id number] #### [place] [id number] LIPASE Collected: 06/30/2018 Status: F Source: [facility] 10:45 [facility] REPOSITORY TYPE CODE TESTS RESULT OUT OF REFERENCE UNITS RANGE LAB LIPASE(LOIN 18.0 - 51.0 U/L C) LIPASE 18.0 Performed By: #### [id number] #### [place] [id number] TROPONIN Collected: 06/30/2018 Status: F Source: [facility] 10:45 [facility] REPOSITORY TYPE CODE TESTS RESULT OUT [...] such as heterophile antibodies). Performed By: #### [id number] #### [facility],[address] [place] [address] TSH Collected: 06/30/2018 Status: F Source: [facility] 10:45 PM [facility] REPOSITORY TYPE CODE TESTS RESULT OUT OF RANGE REFERENCE UNITS LAB TSH(LOINC) 0.34 - 5.60 uIU/ml Low TSH 0.17 Performed By: #### [id number] #### [place] [id number] Observed: 06/30/2018 Status: F Source: [facility] CULTURE BLOOD 10:45 [facility] REPOSITORY CULTURE BLOOD CULTURE BLOOD SET: 1 of 2 24HOUR REPORT NEGATIVE 48HOUR REPORT NEGATIVE 72HOUR REPORT NEGATIVE M I C R O B I O L O G Y R E P O R T FINAL Antimicrobial Susceptibility and Organism Identification Report Specimen Number : [id number] Requested : 06/30/18 Specimen Source : BLOOD Collected : 06/30/18 22:45 [place] [facility] Isolation : Emergency Room Received : 06/30/18 22:45 Requesting Physician : christina Patient/Specimen Tests and Comments Specimen Comments FINAL REPORT: No Growth at 5 Days Tech : Source : BLOOD ID # : [id number] FINAL Report Date : / / : Collected : 06/30/18 22:45 07/06/18.1142.BKO. 07/06/18.1142.BKO.COMPLETE Performed By: #### [id number] #### [facility],[address] [place] [address] EMERGENCY REPORT Observed: 06/30/2018 Status: F Source: [facility] 9:55 PM [facility] EMERGENCY ROOM REPORT NAME ACCOUNT SEX AGE ADMIT DISCHARGE PT MED. RECORD# NUMBER DATE DATE TYPE DAHLIA MARINO [id number] F 47 06/30/18 07/01/18 3 R [id number] ROOM: ER DATE OF : 1970 DICTATING [...] first contacted our surgical service here at [facility], who due to this patient's complicated medical history suggested transfer to [facility] in [place]. I then contacted [place], who suggested contacting the [facility] due to her complicated history. I then contacted [facility], who was agreeable with accepting the patient. The patient was monitored in our Emergency Department throughout the night and then transferred in stable condition. Dictated By: Doroteo Tabor DO 07/01/18 07:00 JOB #: [id number] Transcribed By: jen 07/01/18 09:44 Electronically signed by: E-SIGN: Doroteo Tabor D.O. 07/08/18 06:49 Page 2 of 2 DAHLIA MARINO Emergency Room Report EMERGENCY REPORT Observed: 06/30/2018 Status: F Source: [facility] 9:55 PM [facility] EMERGENCY ROOM REPORT NAME ACCOUNT SEX AGE ADMIT DISCHARGE PT MED. RECORD# NUMBER DATE DATE TYPE DAHLIA MARINO [id number] F 47 06/30/18 07/01/18 3 R [id number] ROOM: ER DATE OF : 1970 DICTATING [...] Lore Mujica DO 07/01/18 08:22 JOB #: [id number] Transcribed By: jen 07/01/18 10:00 Electronically signed by: E-Sign: LORE MUJICA MD 07/12/18 12:00 Page 1 of 1 DAHLIA MARINO Emergency Room Report EMERGENCY DEPARTMENT Observed: 05/11/2018 Status: F Source: [place] REPORT 4:14 PM [facility] [place] [address] HEALTH INFORMATION MANAGEMENT EMERGENCY DEPARTMENT REPORT Patient: DAHLIA MARINO KATIA TAMEZ D.O. [id number] [age] F Status: DEP ER ED Date of Service: 05/08/18 CHIEF COMPLAINT A 47-year-old female. Chief complaint: Vaginal problem. HISTORY OF PRESENT ILLNESS The patient says she has had a recurrent yeast infection. She has had a discolored discharge. She has had a hysterectomy. She does not have a linseed oil order filler. No other complaints. No abdominal pain, just [...] I am going to refer her to [facility] for followup. <Electronically signed by KATIA TAMEZ D.O.> 05/12/18 0538 KATIA TAMEZ D.O. cc: KATIA TAMEZ D.O. << Signature on File>> Reported By: KATIA TAMEZ D.O. Signed By: KATIA TAMEZ D.O. Tests performed at: [address] [address] ED PROV NOTE Observed: 05/11/2018 Status: COMPLETED Source: [place] 4:14 PM [facility] REPOSITORY HNO ID: [id number] Author: Katia Tamez Service: (none) Author Type: Physician Type: ED Provider Notes Filed: 06/23/2018 9:00 PM Note Text: [place] [address] HEALTH INFORMATION MANAGEMENT EMERGENCY DEPARTMENT REPORT Patient: DAHLIA MARINO KATIA TAMEZ D.O. [id number] [age] F Status: [facility] ER ED Date of Service: 05/08/18 CHIEF COMPLAINT A 47-year-old female. Chief complaint: Vaginal problem. HISTORY OF PRESENT ILLNESS The patient says she has had a recurrent yeast infection. She has had a discolored discharge. She has had a hysterectomy. She does not have a linseed oil order filler. No other complaints. No abdominal pain, just [...] I am going to refer her to [facility] for followup. <Electronically signed by KATIA TAMEZ D.O.> 05/12/18 0538 KATIA TAMEZ D.O. cc: KATIA TAMEZ D.O. << Signature on File>> Reported By: KATIA TAMEZ D.O. Signed By: KATIA TAMEZ D.O. Tests performed at: [address] [address] Observed: 05/08/2018 Status: F Source: [facility] WET PREP 3:09 AM HOSPITAL REPOSITORY WET PREP FEW EPITHELIAL CELLS MANY WBC'S FEW RBC'S NEGATIVE FOR YEAST NEGATIVE FOR TRICHOMONAS Performed By: #### [id number] #### [facility] [address] [place] [address] EMERGENCY REPORT Observed: 01/09/2018 Status: F Source: [facility] 7:13 PM [facility] REPOSITORY [facility] EMERGENCY ROOM REPORT NAME ACCOUNT SEX AGE ADMIT DISCHARGE PT MED. RECORD# NUMBER DATE DATE TYPE DAHLIA MARINO [id number] F 47 12/28/17 12/28/17 3 R [id number] ROOM: ER DATE OF : 1970 DICTATING [...] the coronary arteries by Dr. Haque in [place]. She states that she has had an [...] sinus mechanism without an evidence of acute [place]. Rate was 93 and this was done [...] Mor Douglass DO 12/28/17 06:44 JOB #: [id number] Transcribed By: sp 12/29/17 05:54 Electronically signed by: E-SIGN MOR RAFAT ARSHAD 01/09/18 19:10 Page 2 of 2 NED DAHLIA R Emergency Room Report CBC Collected: 12/28/2017 Status: F Source: [facility] 4:10 AM [facility] REPOSITORY TYPE CODE TESTS RESULT OUT OF [...] x10EE3/U L Neut # High 10.70 LAB [place] #(LOINC) 0.20 - 1.00 x10EE3/U L [place] # 0.50 LAB EO #(LOINC) 0.00 - 0.50 x10EE3/U L EO # 0.10 LAB Baso #(LOINC) 0.00 - 0.10 x10EE3/U L Baso # 0.00 LAB MANUAL DIFF(LOINC) MANUAL DIFF N/A LAB MORPHOLOGY(LOINC ) MORPHOLOGY N/A Result Comment: {CD] Performed By: #### [id number] #### [facility],[address] [place] [address] CMP WITH EGFR Collected: 12/28/2017 Status: F Source: [facility] 4:10 AM [facility] REPOSITORY TYPE CODE TESTS RESULT OUT OF [...] OF AGE AND OLDER. Performed By: #### [id number] #### [place] [address] LIPASE Collected: 12/28/2017 Status: F Source: [facility] 4:10 [facility] REPOSITORY TYPE CODE TESTS RESULT OUT OF REFERENCE UNITS RANGE LAB LIPASE(LOIN 18.0 - 51.0 U/L C) LIPASE 25.0 Performed By: #### [id number] #### [place] [address] TROPONIN Collected: 12/28/2017 Status: F Source: [facility] 4:10 [facility] REPOSITORY TYPE CODE TESTS RESULT OUT [...] such as heterophile antibodies). Performed By: #### [id number] #### [place] [id number] ALLERGIES ALLERGIES DATE TYPE / NAME / CODE REACTION SEVERITY SOURCE CODE 08/29/2018 Drug doxycycline/[id number] Other Unknown [place] Allergy/41 748(RXNORM) [facility] [id number]([facility]) Repository 08/29/2018 Drug erythromycin Hives Unknown [place] Allergy/41 base/[id number](RXN Community 0624687(SN ORM) [facility]) Repository 08/29/2018 Drug metronidazole/F0060 Other Unknown [place] Allergy/41 32651(RXNORM) [facility] 7377000([facility]) Repository 07/01/2018 DRUG DOXYCYCLINE SHORTNESS OF High [place] INGREDI/41 Clinic Other 9299447([facility]MED [facility]) Repository 07/01/2018 DRUG METRONIDAZOLE INTOLERANCE [place] INGREDI/41 Clinic Other 0691489([facility] OMED CT) Repository 07/01/2018 DRUG AZITHROMYCIN SHORTNESS OF High [place] INGREDI/41 Clinic Other 8932340([facility] OME CT) Repository NG/0027474 DOXYCYCLINE [facility] 06([facility]) Repository NG/4409670 METRONIDAZOLE [facility] 06([facility]) Repository NG/4646697 AZITHROMYCIN [facility] 06([facility]) Repository Drug DOXYCYCLINE/8285425 Moderate [place]if [place] Allergy/41 0(RXNORM) ([facility] 7761169(SN Modifier) [facility]) (Qualifier Repository Value) Drug FLAGYL/56676135(RXN Moderate [place] Allergy/41 ORM) ([facility] 0981563(SN Modifier) [facility]) (Qualifier Repository Value) Drug ERYTHROMYCIN/706109 Moderate Kashif [place] Allergy/41 26(RXNORM) ([facility] 7014306(SN Modifier) [facility]) (Qualifier Repository Value) ENCOUNTERS ENCOUNTERS ADMIT/DISCHARGE ACCOUNT NUMBER ADMITTING ENCOUNTER LOCATION SOURCE CLASS 09/06/2018 [id number] [facility] ding:MEDOUTP Repository 09/05/[id number] [facility] ding:MEDOUTP Repository 09/05/2018 [id number] [facility] Repository 09/04/2018/09/04/[id number] ding:MEDOUTP Repository 09/03/2018/09/03/[id number] ding:MEDOUTP Repository 09/02/2018 [id number] [facility] ding[facility]MED[facility]P Repository 09/01/2018 [id number] Ambulatory [place] [facility] ding:MEDOUTP Repository 09/01/2018 [id number] Emergency [facility] [place] [address] ERRoom: System [id number]: Repository [id number] 09/01/2018 [id number] Ambulatory [facility] Repository 08/31/2018 [id number] Ambulatory Samara [place] [facility] ding:MEDOUTP Repository 08/30/2018 [id number] Ambulatory Samara [place] [facility] ding:MEDOUTP Repository 08/30/2018 [id number] Ambulatory [facility] Repository 08/29/2018 [id number] Ambulatory Sam[place] [facility] ding:MEDOUTP Repository 08/28/2018/08/28/19 [id number] Ambulatory [place] Saamra 19 [facility] ding:MEDOUTP Repository 08/27/2018/08/27/19 [id number] Ambulatory Samara [place] 19 [facility] ding:MEDOUTP Repository 08/26/2018 [id number] Ambulatory Sam[place] [facility] ding:MEDOUTP Repository 08/25/2018 [id number] Ambulatory Samara [place] [facility] ding:MEDOUTP Repository 08/25/2018 [id number] Ambulatory [facility] Repository 08/24/2018 [id number] Ambulatory [place] [facility] ding:MEDOUTP Repository 08/23/2018/08/23/19 [id number] Ambulatory [place] Samara 19 [facility] ding:MEDOUTP Repository 08/22/2018 [id number] Ambulatory [place] [facility] ding:MEDOUTP Repository 08/21/2018/08/21/20 [id number] Ambulatory [place] Samara 18 [facility] ding:MEDOUTP Repository 08/20/2018/08/20/20 [id number] Ambulatory Samara Sam[place] 18 [facility] ding:MEDOUTP Repository 08/19/2018 [id number] Ambulatory Sam[place] [facility] ding:MEDOUTP Repository 08/18/2018 [id number] Ambulatory Sam[place] [facility] ding:MEDOUTP Repository 08/17/2018 [id number] Ambulatory [place] [facility] ding:MEDOUTP Repository 08/16/2018/08/16/20 [id number] Ambulatory Samara Sam[place] 18 [facility] ding:MEDOUTP Repository 08/15/2018 [id number] Ambulatory [place] [facility] ding:MEDOUTP Repository 08/14/2018/08/14/20 [id number] Ambulatory Samara Sam[place] 18 [facility] ding:MEDOUTP Repository 08/13/2018/08/13/20 [id number] Ambulatory Samara Samara 18 [facility] ding:MEDOUTP Repository 08/12/2018 [id number] Ambulatory [place]ara [facility] ding:MEDOUTP Repository 08/11/2018 [id number] Ambulatory [place] Samara [facility] ding:MEDOUTP Repository 08/10/2018 [id number] Ambulatory Sam[place] [facility] ding:MEDOUTP Repository 08/09/2018 [id number] Ambulatory [place] [facility] ding:MEDOUTP Repository 08/08/2018 [id number] Ambulatory Samara [place] [facility] ding:MEDOUTP Repository 08/07/2018/08/07/20 [id number] Ambulatory Samara Sam[place] 18 [facility] ding:MEDOUTP Repository 08/06/2018/08/06/20 [id number] Ambulatory [place] Samara 18 [facility] ding:MEDOUTP Repository 08/05/2018 [id number] Ambulatory Samara [place] [facility] ding:MEDOUTP Repository 08/04/2018 [id number] Ambulatory Samara [place] [facility] ding:MEDOUTP Repository 08/04/2018 [id number] Ambulatory [facility] Repository 08/04/2018 [id number] Ambulatory [facility] Repository 08/03/2018 [id number] [facility] [place] [facility] ding:MEDOUTP Repository 08/02/2018 [id number] [facility] [place] [facility] ding:MEDOUTP Repository 08/01/2018 [id number] [facility] ding:MEDOUTP Repository 07/31/2018/07/31/20 [id number] Ambulatory Sam[place] [address] [place] [address] [facility] ding:MEDOUTP Repository 07/30/2018/07/30/20 [id number] Ambulatory Sam[place] [address] [place] [address] [facility] ding:MEDOUTP Repository Room: [facility] 07/29/2018 [id number] [facility] ding:MEDOUTP Repository 07/29/2018 [id number] Ambulatory [facility] Repository 07/28/2018 [id number] [facility]ulatory [place] [facility] Hospital ding:MEDOUTP Repository 07/27/2018 [id number] Ambulatory [place] [facility] ding:MEDOUTP Repository 07/26/2018 [id number] [facility] ding:[facility]P Repository 07/26/2018 [id number] Ambulatory [facility] Repository 07/25/2018 [id number] [facility] ding:MED[facility]P Repository 07/24/2018/07/24/20 [id number] Ambulatory Samara Samara [address] [place] [address] [facility] Hospital ding:MEDOUTP Repository 07/23/2018/07/23/20 [id number] Ambulatory Samara Sam[place] [address] [place] [address] [facility] ding:MEDOUTP Repository 07/22/2018 [id number] [facility] ding:[facility]P Repository 07/21/2018 [id number] [facility] ding:MED[facility]P Repository 07/17/2018 [id number] Inpatient [facility] 4NRoom: System [id number]: Repository [id number] 07/02/2018 [id number] Inpatient [facility] Encounter 6WRoom: System [id number]: Repository [id number] 07/01/2018/07/02/20 [id number] TETYUK, Inpatient [place] 18 PENELOPE Encounter Clinic Other [place] Repository 07/01/2018/07/02/20 [id number] ELY[place], Inpatient [place] [facility] 18 PENELOPE Encounter [facility] MEDICAL Repository CENTERBuildi nRoom: 7121Bed: 06/30/2018/07/01/20 [id number] CHRISTINA, Emergency [facility] [place] [address] 18 DOROTEO D Room: ERBed: [facility] Repository 05/08/2018/05/08/20 [id number] Emergency UNIBuilding: [address] Repository 12/28/2017/12/29/19 [id number] RAFAT, Emergency [facility] [place] [address] 18 MOR DO Room: ERBed: [facility] Repository PAYERS PAYERS ENCOUNTER GUARANTOR 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 SOURCE 09/06/2018 DAHLIA Hathaway Primary Insurance:SELF NOT GIVENUNK [facility] Number: [place] Date:2018-08-30 Repository [id number]: () 09/05/2018 DAHLIA R Primary Insurance:SELF NOT GIVENUNK [facility] Number: Effective [place] Date:2018-08-30 Repository [id number]: () 09/05/2018 Dahlia Primary Dahlia NedDOB[facility]: Insurance:MedicarePoli [id number] System cy Number: Effective [facility] Date: [place], [place] [address]Dqa: () 09/05/2018 Secondary Dahlia BarkesDOB: [facility] Insurance:MedicarePoli [id number] System cy Number: Effective Repository Date: 09/05/2018 Tertiary Dahlia BarkesDOB: [facility] Insurance:Self [id number] System PayPolicy Number: Repository Effective Date: 09/04/2018 DAHLIA R Primary Insurance:SELF NOT GIVENUNK [place] [id number] PAY [facility] Number: [place] Date:2018-08-30 Repository [phone]: (HP) 09/03/2018 DAHLIA R Primary Insurance:SELF NOT GIVENUNK [place] [id number] [facility]Y [facility] Number: [place] Date:2018-08-30 Repository [address]Yxe: (HP) 09/02/2018 DAHLIA R Primary Insurance:SELF NOT GIVENUNK [place] [id number] [facility]Y [facility] Number: [place] Date:2018-08-30 Repository [address]Krw: (HP) 09/01/2018 DAHLIA R Primary Insurance:SELF NOT GIVENUNK [place] [id number] PAY [facility] Number: [place] Date:2018-08-30 Repository [id number]: (HP) 09/01/2018 Dahlia Primary Dahlia BarkesDOB: [facility]DOB: Insurance:MedicarePoli [id number] System cy Number: Effective [facility] Date: [place], [place] [address]Fee: () 09/01/2018 Secondary Dahlia BarkesDOB: [facility] Insurance:Self [id number] System PayPolicy Number: Repository Effective Date: 09/01/2018 Dahlia Primary Dahlia BarkesDOB: [facility] BarkesDOB: Insurance:MedicarePoli [id number] System cy Number: Effective Repository [place] Date: [place], [place] [address]Ork: (HP) 09/01/2018 Secondary Dahlia BarkesDOB: [facility] Insurance:Self [id number] System PayPolicy Number: Repository Effective Date: 08/31/2018 DAHLIA R Primary Insurance:SELF NOT GIVENUNK [place] [id number] PAY [facility] Date:2018-08-30 Repository 12500Gyr: (HP) 08/30/2018 DAHLIA R Primary Insurance:SELF NOT GIVENUNK [place] [id number] PAY [facility]:2018-08-24 Repository 51353Vle: (HP) 08/30/2018 Dahlia Primary Dahlia MarinoDOB[facility] BarkesDOB: Insurance:MedicarePoli [id number] System cy Number: Effective [facility] Date: [facility] [place] [address]Evr: (HP) 08/30/2018 Secondary Dahlia NancieB: [facility] Insurance:Self [id number] System PayPolicy Number: Repository Effective Date: 08/29/2018 DAHLIA R Primary Insurance:SELF NOT GIVENUNK [place] [id number] PAY [facility] Date:2018-08-24 Repository 08964Yoa: (HP) 08/28/2018 DAHLIA R Primary Insurance:SELF NOT GIVENUNK [place] [id number] PAY [facility]:2018-08-24 Repository 56085Tjq: (HP) 08/27/2018 DAHLIA R Primary Insurance:SELF NOT GIVENUNK [place] [id number] PAY [facility]:2018-08-24 Repository 99246Vvf: (HP) 08/26/2018 DAHLIA R Primary Insurance:SELF NOT GIVENUNK [place] [id number] PAY [facility]:2018-08-24 Repository 77605Utt: (HP) 08/25/2018 DAHLIA R Primary Insurance:SELF NOT GIVENUNK [place] [id number] PAY [facility]:2018-08-24 Repository 12040Tjd: (HP) 08/25/2018 Dahlia Primary Dahlia MarinoB: [facility] BarkjenyDOB: Insurance:MedicarePoli [id number] System cy Number: Effective [facility] Date: [place], [place] [address]Rrd: (HP) 08/25/2018 Secondary Dahlia MarinoB: [facility] Insurance:Self [id number] System PayPolicy Number: Repository Effective Date: 08/24/2018 DAHLIA R Primary Insurance:SELF NOT GIVENUNK [place] [id number] PAY [facility]:2018-08-22 Repository 81334Pxg: (HP) 08/23/2018 DAHLIA R Primary Insurance:SELF NOT GIVENUNK [place] [id number] PAY [facility]:2018-08-09 Repository 78523Lsh: (HP) 08/22/2018 DAHLIA R Primary Insurance:SELF NOT GIVENUNK [place] [id number] PAY [facility]: [facility]:2018-08-22 Repository 48299Csh: (HP) 08/21/2018 DAHLIA R Primary Insurance:SELF NOT GIVENUNK [place] [id number] PAY [facility]: [facility]:2018-08-09 Repository 61348Mdq: (HP) 08/20/2018 DAHLIA R Primary Insurance:SELF NOT GIVENUNK [place] [id number] PAY [facility]:2018-08-09 Repository 61917Udq: (HP) 08/19/2018 DAHLIA R Primary Insurance:SELF NOT GIVENUNK [place] [id number] PAY [facility]:2018-08-09 Repository 89283Uji: (HP) 08/18/2018 DAHLIA R Primary DAHLIA R [place] [id number] Insurance:MEDICARE A BARKESDOB: [facility] Number: [id number] [id number] Repository [address]Swq: 330) Date:2018-08-09 [phone] (HP) 08/18/2018 Secondary NOT GIVENUNK [place] Insurance:SELF PAY [facility] Effective Repository Date:2018-08-09 08/17/2018 DAHLIA R Primary DAHLIA R Samara [id number] Insurance:MEDICARE A BARKESDOB: [facility] Number: [id number], [place] [id number] Repository 69971Woj: (458) Date:2018-08-09 [phone] (HP) 08/17/2018 Secondary NOT GIVENUNK [place] Insurance:SELF PAY [facility] Number: Effective Repository Date:2018-08-09 08/16/2018 DAHLIA R Primary DAHLIA R [place] [id number] Insurance:MEDICARE A BARKESDOB: [facility] Number: [id number], [place] [id number] Repository 489[address]Ljl: (330) Date:2018-08-09 [phone] (HP) 08/16/2018 Secondary NOT GIVENUNK [place] Insurance:SELF PAY [facility] Number: Effective Repository Date:2018-08-09 08/15/2018 DAHLIA R Primary Insurance:SELF NOT GIVENUNK [place] [id number] PAY [facility] [place]: [place] Date:2018-08-09 Repository 83461Okf: (HP) 08/14/2018 DAHLIA R Primary Insurance:SELF NOT GIVENUNK [place] [id number] PAY [facility] [place]: [place]:2018-08-09 Repository 22246Agh: (HP) 08/13/2018 DAHLIA R Primary Insurance:SELF NOT GIVENUNK [place] [id number] PAY [facility] Number: Effective [facility]:2018-08-09 Repository 51372Utv: () 08/12/2018 DAHLIA R Primary Insurance:SELF NOT GIVENUNK [place] [id number] PAY [facility]: Effective [facility]:2018-08-09 Repository 66491Oac: () 08/11/2018 DAHLIA R Primary Insurance:SELF NOT GIVENUNK [place] [id number] PAY [facility]: Effective [facility]:2018-08-09 Repository 54191Zes: () 08/10/2018 DAHLIA R Primary Insurance:SELF NOT GIVENUNK [place] [id number] PAY [facility]: Effective [facility]:2018-07-26 Repository 25875Faq: () 08/09/2018 DAHLIA R Primary Insurance:SELF NOT GIVENUNK [place] [id number] PAY [facility]: Effective [facility]:2018-07-26 Repository 19093Odk: () 08/08/2018 DAHLIA R Primary Insurance:SELF NOT GIVENUNK [place] [id number] PAY [facility]: Effective [facility]:2018-07-26 Repository 13447Rpt: () 08/07/2018 DAHLIA R Primary Insurance:SELF NOT GIVENUNK [place] [id number] PAY [facility] Number: Effective [facility] Date:2018-07-26 Repository 70441Zot: () 08/06/2018 DAHLIA R Primary Insurance:SELF NOT GIVENUNK [place] [id number] PAY [facility]: Effective [facility] Date:2018-07-26 Repository 31210Czu: (HP) 08/05/2018 DAHLIA R Primary Insurance:SELF NOT GIVENUNK [place] [id number] PAY [facility] [place]: [place] Date:2018-07-26 Repository 63674Efh: (HP) 08/04/2018 DAHLIA R Primary Insurance:SELF NOT GIVENUNK [place] [id number] PAY [facility] [place]: [place] Date:2018-07-26 Repository 32066Pmq: (HP) 08/04/2018 Dahlia Primary Dahlia BarkesDOB: [facility] BarkesDOB: Insurance:MedicarePoli [id number] System cy Number: Effective [facility] Date: [place], [place] [address]Yrh: () 08/04/2018 Secondary Dahlia BarkesDOB: [facility] Insurance:Self [id number] System PayPolicy Number: Repository Effective Date: 08/04/2018 Dahlia Primary Dahlia BarkesDOB: [facility] BarkesDOB: Insurance:MedicarePoli [id number] System cy Number: Effective [facility] Date: [place], [place] [address]Olv: () 08/04/2018 Secondary Dahlai BarkesDOB: [facility] Insurance:Self [id number] System PayPolicy Number: Repository Effective Date: 08/03/2018 DAHLIA R Primary Insurance:SELF NOT GIVENUNK [place] [id number] PAY [facility] [place]:2018-07-26 Repository 96344Lua: (HP) 08/02/2018 DAHLIA R Primary Insurance:SELF NOT GIVENUNK [place] [id number] PAY [facility] Number: Effective [facility] [place] Date:2018-07-26 Repository 01591Tft: () 08/01/2018 DAHLIA R Primary DAHLIA R [place] [id number] Insurance:MEDICARE A BARKESDOB: [facility] ONLYPolicy Number: [id number], [place] [id number] Repository 530[address]Xtq: (330) Date:2018-07-26 [phone] (HP) 08/01/2018 Secondary NOT GIVENUNK [place] Insurance:SELF PAY [facility] Number: Effective Repository Date:2018-07-26 07/31/2018 DAHLIA H[place]away Primary DAHLIA Hathaway [place] [id number] Insurance:MEDICARE A BARKESDOB: [facility] ONLYPolicy Number: [id number], [place] [id number] Repository 64173Tmg: (330) Date:2018-07-26 [phone] (HP) 07/31/2018 Secondary NOT GIVENUNK [place] Insurance:SELF PAY [facility] Number: Effective Repository Date:2018-07-26 07/30/2018 DAHLIA Hathaway Primary DAHLIA Hathaway Samara [id number] Insurance:MEDICARE A BARKESDOB: [facility] Number: [id number], [place] [id number] Repository [address]Hid: (330) Date:2018-07-26 [phone] () 07/30/2018 Secondary NOT GIVENUNK [place] Insurance:SELF PAY [facility] Number: Effective Repository Date:2018-07-26 07/29/2018 DAHLIA Hathaway Primary DAHLIA Hathaway Samara [id number] Insurance:MEDICARE A BARKESDOB: [facility] Number: [id number], [place] [id number] Repository 37[address]Hpl: (330) Date:2018-07-26 [phone] (HP) 07/29/2018 Secondary NOT GIVENUNK [place] Insurance:SELF PAY [facility] Number: Effective Repository Date:2018-07-26 07/29/2018 Dahlia Villagomez BarkesDOB: [facility] BarkesDOB: Insurance:MedicarePoli [id number] System cy Number: Effective Repository [place] Date: [place], [place] [address]Ljn: (HP) 07/28/2018 DAHLIA R Primary DAHLIA R [place] [id number] Insurance:MEDICARE A BARKESDOB: [facility] ONLYPolicy Number: [id number], [place] [id number] Repository [address]Zxm: (330) Date:2018-07-26 [phone] (HP) 07/28/2018 Secondary NOT GIVENUNK [place] Insurance:SELF PAY [facility] Effective Repository Date:2018-07-26 07/27/2018 DAHLIA R Primary Insurance:SELF NOT GIVENUNK [place] [id number] [facility]Y [facility] Number: [place]:2018-07-26 Repository 81679Esd: (HP) 07/26/2018 DAHLIA R Primary DAHLIA R [place] [id number] Insurance:MEDICARE A BARKESDOB: [facility] Number: [id number], [place] [id number] Repository 267[address]Rck: (330) Date:2018-07-26 [phone] (HP) 07/26/2018 Secondary NOT GIVENUNK [place] Insurance:SELF PAY [facility] Number: Effective Repository Date:2018-07-26 07/26/2018 Dahlia Primary Dahlia BarkesDOB: [facility] BarkesDOB: Insurance:MedicarePoli [id number] System cy Number: Effective [facility] Date: [place], [place] [address]Jto: (HP) 07/26/2018 Secondary Dahlia BarkesDOB: [facility] Insurance:Self [id number] System PayPolicy Number: Repository Effective Date: 07/25/2018 DAHLIA R Primary DAHLIA R [place] [id number] Insurance:MEDICARE A BARKESDOB: [facility] Number: [id number], [place] [id number] Repository [address]Wdj: (330) Date:2018-07-20 [phone] () 07/25/2018 Secondary NOT GIVENUNK [place] Insurance:SELF PAY [facility] Number: Effective Repository Date:2018-07-20 07/24/2018 DAHLIA R Primary DAHLIA R [place] [id number] Insurance:MEDICARE A BARKESDOB: [facility] Number: [id number] [place], [place] [id number] Repository 76[address]Uzw: (103) Date:2018-07-20 [phone] (HP) 07/24/2018 Secondary NOT GIVENUNK [place] Insurance:SELF PAY [facility] Number: Effective Repository Date:2018-07-20 07/23/2018 DAHLIA R Primary Insurance:SELF NOT GIVENUNK [place] [id number] PAY [facility] [place]: [place]-07-20 Repository 31422Fxc: (HP) 07/22/2018 DAHLIA R Primary Insurance:SELF NOT GIVENUNK [place] [id number] PAY [facility] [place]: [place]:2018-07-20 Repository 78762Idm: (HP) 07/21/2018 DAHLIA R Primary Insurance:SELF NOT GIVENUNK [place] [id number] PAY [facility] [place]: [place]:2018-07-20 Repository 78256Gug: (HP) 07/17/2018 Dahlia Primary Dahlia BarkesDOB: [facility] BarkesDOB: Insurance:MedicarePoli [id number] System cy Number: Effective Repository [place] Date: [place], [place] [address]Otb: (HP) 07/02/2018 [facility] Primary Dahlia BarkesDOB: [facility] BarkesDOB: Insurance:MedicarePoli [id number] System cy Number: Effective [facility] Date: [place], [place] [address]Ppp: (HP) 07/02/2018 Secondary Dahlia BarkesDOB: [facility] Insurance:Self [id number] System PayPolicy Number: Repository Effective Date: 07/01/2018 DAHLIA R [facility] [place] [facility] BARKESDOB: Health System APolicy Number: [id number] Repository [place] [id number] [place], [place] Date: [address]Lsq: () 06/30/2018 DAHLIA R Primary DAHLIA R Kashiflucinda Bennettzeinab BARKESDOB: Insurance:MEDICARE BARKESDOB: [facility] [id number] [facility] Number: [place] Repository [place], [place] [id number] [place] [id number]: Date:Plan Name: [id number] () 05/08/2018 DAHLIA R Primary DAHLIA R [facility] [id number] Insurance:[facility]ARE [facility]K [facility] [place] [facility] Repository [place], [place] Number: [address]Kuy: (922) [id number] [phone] (HP) Date: 12/28/2017 DAHLIA R Primary DAHLIA R Kashiflucinda Bennettzeinab BARKDOB: Insurance:MEDICARE BARKESDOB: [facility] [id number] [place] [address] Number: [place] Repository [place], [place] [id number] [place] [id number]: Date:Plan Name: [id number] ()
== END ==
LOC: MEDOUTP 13:39
PROVIDERS: Referring Provider Internal Medicine Infectious Disease; Visit Provider Internal Medicine Infectious Disease
DX: K65.1 Peritoneal abscess (principal)
CPT/HCPCS: 96365; J7050; A4216

== ENCOUNTER → 2018-08-05 14:02 | Outpatient (CLI) | payer SELFPAY ==
[2018-07-26 13:51] VITALS: BMI 24.3
[2018-08-04 14:00] VITALS: BMI 24.3
[2018-08-05 14:13] VITALS: BP 131/72; PULSE 59; RESP 15; TEMP 36.6; O2SAT 100; BMI 24.3
--- OUTSIDE RECORDS SUMMARY | 2018-11-09 05:07 | XMS RPT_ITS ---
:1970 Author Organization OHIP Support Name Relationship Address Phone NILDA MARINOT Unavailable [address] [place] [address] + [place] [address] BROWN, DINAH Unavailable Unavailable + D Unavailable Unavailable Unavailable BARKES, MARS Unavailable [address] [facility] + [place] [address] BROWN, DINAH Unavailable Unavailable + D Unavailable Unavailable Unavailable Barkes, Mars Unavailable Unavailable + Brown, Dinah Unavailable Unavailable + BARKES, MARS Unavailable [address] + [place] [address] BROWN, DINAH Unavailable Unavailable + D Unavailable Unavailable Unavailable BARKES, MARS Unavailable [address] + [place] [address] BROWN, DINAH Unavailable Unavailable + D Unavailable Unavailable Unavailable BARKES, MARS Unavailable [address] + [place] [address] BROWN, DINAH Unavailable Unavailable + D Unavailable Unavailable Unavailable BARKES, MARS Unavailable [address] + [place] [address] BROWN, DINAH Unavailable Unavailable + D Unavailable Unavailable Unavailable Barkes, Mars Unavailable Unavailable + Brown, Dinah Unavailable Unavailable + Barkes, Mars Unavailable Unavailable + Brown, Dinah Unavailable Unavailable + BARKES, MARS Unavailable [address] + [place] [address] BROWN, DINAH Unavailable Unavailable + D Unavailable Unavailable Unavailable BARKES, MARS Unavailable [address] + [place] [address] BROWN, DINAH Unavailable Unavailable + D Unavailable Unavailable Unavailable Barkes, Mars Unavailable Unavailable + Brown, Dinah Unavailable Unavailable + BARKES, MARS Unavailable [address] + [place] [address] BROWN, DINAH Unavailable Unavailable + D Unavailable Unavailable Unavailable BARKES, MARS Unavailable [address] + [place] [address] BROWN, DINAH Unavailable Unavailable + D Unavailable Unavailable Unavailable BARKES, MARS Unavailable [address] + [place] [address] BROWN, DINAH Unavailable Unavailable + D Unavailable Unavailable Unavailable BARKES, MARS Unavailable [address] + [place] [address] BROWN, DINAH Unavailable Unavailable + D Unavailable Unavailable Unavailable BARKES, MARS Unavailable [address] + [place] [address] BROWN, DINAH Unavailable Unavailable + D Unavailable Unavailable Unavailable Barkes, Mars Unavailable Unavailable + Brown, Dinah Unavailable Unavailable + BARKES, MARS Unavailable [address] + [place] [address] BROWN, DINAH Unavailable Unavailable + D Unavailable Unavailable Unavailable BARKES, MARS Unavailable [address] + [place] [address] BROWN, DINAH Unavailable Unavailable + D Unavailable Unavailable Unavailable BARKES, MARS Unavailable [address] + [place] [address] BROWN, DINAH Unavailable Unavailable + D Unavailable Unavailable Unavailable BARKES, MARS Unavailable [address] + [place] [address] BROWN, DINAH Unavailable Unavailable + D Unavailable Unavailable Unavailable BARKES, MARS Unavailable [address] + [place] [address] BROWN, DINAH Unavailable Unavailable + D Unavailable Unavailable Unavailable BARKES, MARS Unavailable [address] + [place] [address] BROWN, DINAH Unavailable Unavailable + D Unavailable Unavailable Unavailable BARKES, MARS Unavailable [address] + [place] [address] BROWN, DINAH Unavailable Unavailable + D Unavailable Unavailable Unavailable BARKES, MARS Unavailable [address] + [place] [address] BROWN, DINAH Unavailable Unavailable + D Unavailable Unavailable Unavailable BARKES, MARS Unavailable [address] + [place] [address] BROWN, DINAH Unavailable Unavailable + D Unavailable Unavailable Unavailable BARKES, MARS Unavailable [address] + [place] [address] BROWN, DINAH Unavailable Unavailable + D Unavailable Unavailable Unavailable BARKES, MARS Unavailable [address] + [place] [address] BROWN, DINAH Unavailable Unavailable + D Unavailable Unavailable Unavailable BARKES, MARS Unavailable [address] + [place] [address] BROWN, DINAH Unavailable Unavailable + D Unavailable Unavailable Unavailable BARKES, MARS Unavailable [address] + [place] [address] BROWN, DINAH Unavailable Unavailable + D Unavailable Unavailable Unavailable BARKES, MARS Unavailable [address] + [place] [address] BROWN, DINAH Unavailable Unavailable + D Unavailable Unavailable Unavailable BARKES, MARS Unavailable [address] + [place] [address] BROWN, DINAH Unavailable Unavailable + D Unavailable Unavailable Unavailable BARKES, MARS Unavailable [address] + [place] [address] BROWN, DINAH Unavailable Unavailable + D Unavailable Unavailable Unavailable BARKES, MARS Unavailable [address] + [place] [address] BROWN, DINAH Unavailable Unavailable + D Unavailable Unavailable Unavailable BARKES, MARS Unavailable [address] + [place] [address] BROWN, DINAH Unavailable Unavailable + D Unavailable Unavailable Unavailable BARKES, MARS Unavailable [address] + [place] [address] BROWN, DINAH Unavailable Unavailable + D Unavailable Unavailable Unavailable BARKES, MARS Unavailable [address] + [place] [address] BROWN, DINAH Unavailable Unavailable + D Unavailable Unavailable Unavailable BARKES, MARS Unavailable [address] + [place] [address] BROWN, DINAH Unavailable Unavailable + D Unavailable Unavailable Unavailable Barkes, Mars Unavailable Unavailable + Brown, Dinah Unavailable Unavailable + Barkes, Mars Unavailable Unavailable + Brown, Dinah Unavailable Unavailable + BARKES, MARS Unavailable [address] + [place] [address] BROWN, DINAH Unavailable Unavailable + D Unavailable Unavailable Unavailable BARKES, MARS Unavailable [address] + [place] [address] BROWN, DINAH Unavailable Unavailable + D Unavailable Unavailable Unavailable BARKES, MARS Unavailable [address] + [place] [address] BROWN, DINAH Unavailable Unavailable + D Unavailable Unavailable Unavailable BARKES, MARS Unavailable [address] + [place] [address] BROWN, DINAH Unavailable Unavailable + D Unavailable Unavailable Unavailable BARKES, MARS Unavailable [address] + [place] [address] BROWN, DINAH Unavailable Unavailable + D Unavailable Unavailable Unavailable BARKES, MARS Unavailable [address] + [place] [address] BROWN, DINAH Unavailable Unavailable + D Unavailable Unavailable Unavailable Barkes, Mars Unavailable Unavailable + Brown, Dinah Unavailable Unavailable + BARKES, MARS Unavailable [address] + [place] [address] BROWN, DINAH Unavailable Unavailable + D Unavailable Unavailable Unavailable BARKES, MARS Unavailable [address] + [place] [address] BROWN, DINAH Unavailable Unavailable + D Unavailable Unavailable Unavailable BARKES, MARS Unavailable [address] + [place] [address] BROWN, DINAH Unavailable Unavailable + D Unavailable Unavailable Unavailable Barkes, Mars Unavailable Unavailable + Brown, Dinah Unavailable Unavailable + BARKES, MARS Unavailable [address] + [place] [address] BROWN, DINAH Unavailable Unavailable + D Unavailable Unavailable Unavailable BARKES, MARS Unavailable [address] [place] [address] ST + [place] [address] BROWN, DINAH Unavailable Unavailable + D Unavailable Unavailable Unavailable BARKES, MARS Unavailable Unavailable + BROWN, DINAH Unavailable Unavailable + D Unavailable Unavailable Unavailable BARKES, MARS Unavailable Unavailable + BROWN, DINAH Unavailable Unavailable + D Unavailable Unavailable Unavailable BARKES, MARS Unavailable Unavailable + DINAH OSBORN Unavailable Unavailable + UE Unavailable Unavailable Unavailable Barkes, Mars Unavailable Unavailable + Zeeshan Dinah Unavailable Unavailable + Barkes, Mars Unavailable Unavailable + Zeeshan Dinah Unavailable Unavailable + LANCE MARINO Unavailable [address] + [place], [place] [id number] BARKES, MARS Unavailable Unavailable Unavailable NOT GIVEN Unavailable Unavailable Unavailable BARKES, LANCE Unavailable [address] + [place], [place] [id number] BARKES, MARS Unavailable Unavailable Unavailable NOT GIVEN [...] Referring Unavailable IVIS, MICHELINE Primary Care Unavailable Vilma, Luke Attending Unavailable PROVIDER, UNKNOWN Referring Unavailable IVIS, MICHELINE Primary Care Unavailable PROVIDER, UNKNOWN Referring Unavailable IVIS, MICHELINE Primary Care Unavailable Jonh Esparza Attending Unavailable Micheline Tripathi Attending Unavailable PROVIDER, UNKNOWN Referring Unavailable IVIS, MICHELINE Primary Care Unavailable Deuce, Micheline Attending Unavailable PROVIDER, UNKNOWN Referring Unavailable IVIS, MICHELINE Primary Care Unavailable Micheline Tripathi Attending Unavailable PROVIDER, UNKNOWN Referring Unavailable Ivis, Micheline Primary Care Unavailable PROVIDER, UNKNOWN Referring Unavailable IVIS, MICHELINE Primary Care Unavailable Vilma Luke Attending Unavailable PROVIDER, UNKNOWN Referring Unavailable IVIS, MICHELINE Primary Care Unavailable Arash Corado Attending Unavailable Mandapat, Daya Attending Unavailable Mandapat, [...] Primay Care Physicia, No Primary Care Unavailable OMLEYARTUROMOR DO Admitting Unavailable OMLEY, MOR DO Attending Unavailable ARTURO DOUGLASSOTHY DO Primary Care Unavailable MARLO LANG MD Consulting Unavailable MARLO LANG MD Referring Unavailable PROVIDER, UNKNOWN Consulting Unavailable DOROTEO TABOR Admitting Unavailable DOROTEO TABOR Attending Unavailable MARLO LANG MD Referring Unavailable DOROTEO TABOR Primary Care Unavailable MARLO LANG MD Consulting Unavailable PROVIDER, UNKNOWN Consulting Unavailable TETYUK, PENELOPE Admitting Unavailable TETYUK, PENELOPE Attending Unavailable Jan MCGOWAN Consulting Unavailable CAPIZZANINICK R Consulting Unavailable TETYUK, PENELOPE Admitting Unavailable TETYUK, PENELOPE Attending Unavailable MONI NICK R Consulting Unavailable PROBLEMS PROBLEMS DATE TYPE CONDITION / CODE ATTENDING STATUS SOURCE 09/01/2018 Admitting Hypokalemia / Hashiguchi, Active [facility] Diagnosis E87.6(ICD-10) Luke System Repository 08/30/2018 Admitting 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, Active [facility]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 I, Micheline System unspecified / Repository G90.50(ICD-10) 08/30/2018 Admitting Personal history of [place], Active [facility] Diagnosis nicotine dependence Micheline System / Z87.891(ICD-10) Repository 08/30/2018 Admitting Fibromyalgia / [place], Active [facility] Diagnosis M79.7(ICD-10) Micheline System Repository 08/30/2018 Admitting Hypothyroidism, [place], Active [facility] Diagnosis unspecified / Micheline System E03.9(ICD-10) Repository 08/30/2018 Admitting Presence of coronary [place], Active [facility] Diagnosis angioplasty implant Micheline System and graft / Repository Z95.5(ICD-10) 08/30/2018 Admitting 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[place], 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 Micheline System [...] 08/04/2018 Admitting Other ascites / Hashiguchi, Active [facility] Diagnosis R18.8(ICD-10) Luke System Repository 08/04/2018 Admitting Abnormal findings on Hashiguchi, Active [facility] Diagnosis dx imaging of oth Luke System body structures / Repository R93.89(ICD-10) 08/04/2018 Admitting Abnormal findings on Hashiguchi, Active [facility] Diagnosis dx imaging of prt Luke System digestive tract / Repository R93.3(ICD-10) 08/04/2018 Admitting Candidiasis of vulva Hashiguchi, Active [facility] Diagnosis and vagina / Luke System B37.3(ICD-10) Repository 08/04/2018 Admitting Crohn's disease of Hashiguchi, Active [facility] Diagnosis both small and lg Luke System int w oth Repository complication / K50.818(ICD-10) 07/26/2018 Admitting Encntr for f/u exam Hashiguchi, Active [facility] Diagnosis aft trtmt for cond Luke System oth than malig Repository neoplm / Z09(ICD-10) 07/17/2018 Admitting Peritoneal abscess / Zaugg, Active [facility] Diagnosis K65.1(ICD-10) System Repository 07/17/2018 Admitting Urinary tract Zaugg, Active [facility] Diagnosis infection, site not System specified / Repository N39.0(ICD-10) 07/17/2018 Admitting Hypomagnesemia / Zaugg, Active [facility] Diagnosis E83.42(ICD-10) System Repository 07/17/2018 Admitting Cutaneous abscess of Zaugg, Active [facility] Diagnosis abdominal wall / System L02.211(ICD-10) Repository 07/17/2018 Admitting Sepsis, unspecified Zaugg, Active [facility] Diagnosis organism / System A41.9(ICD-10) Repository 07/17/2018 Admitting Crohn's disease of Zaugg, Active [facility] Diagnosis both small and large System intestine w abscess Repository / K50.814(ICD-10) 07/17/2018 Admitting Postprocedural Zaugg, Active [facility] Diagnosis hypothyroidism / System E89.0(ICD-10) Repository 07/17/2018 Admitting Adverse effect of Zaugg, Active [facility] Diagnosis unsp systemic System antibiotic, init Repository encntr / T36.95XA(ICD-10) 07/17/2018 Admitting alf (current) Zaugg, Active [facility] Diagnosis use of systemic System steroids / Repository Z79.52(ICD-10) 07/02/2018 Admitting Crohn's disease, Oscar, [employer] Diagnosis unspecified, with Dena System abscess / Repository K50.914(ICD-10) 07/02/2018 Admitting Unspecified severe Oscar, [employer] [facility] Diagnosis protein-calorie Dena System malnutrition / Repository E43(ICD-10) 07/02/2018 Admitting Athscl heart disease Oscar, [employer]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 Repository / I25.10(ICD-10) 07/02/2018 Admitting Body mass index Oscar, Active [facility] Diagnosis (BMI) 24.0-24.9, Dena System adult / Repository Z68.24(ICD-10) 07/02/2018 Admitting Abnormal weight loss Oscar, Active [facility] [facility] Diagnosis / R63.4(ICD-10) Dena System Repository 07/02/2018 Admitting Elevated white blood Oscar, [employer] [facility] Diagnosis cell count, Dena System unspecified / Repository D72.829(ICD-10) 07/02/2018 Admitting Anemia, unspecified Oscar, Active [facility] Diagnosis / D64.9(ICD-10) Dena System Repository 07/01/2018 Active Unknown / CORI, Active [facility] UNK(Unknown) [facility] Other [facility] Repository 05/08/2018 Admitting Unknown / NA Active [facility] diagnosis UNK(Unknown) Hospital Repository 12/28/2017 Admitting Vomiting, OMLEY, 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 unspecified / DO [facility] R1110(ICD-10) Hospital Repository 12/28/2017 Principle Noninfective OMLEY, 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 gastroenteritis and DO [facility] colitis, unspecified Hospital / K529(ICD-10) Repository 12/28/2017 Secondary Crohn's disease, OMLEY, 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 unspecified, without DO [facility] complications / Hospital K5090(ICD-10) Repository 12/28/2017 Secondary Atherosclerotic OMLEY, 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 / I2510(ICD-10) 12/28/2017 Secondary Presence of coronary OMLEY, 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 angioplasty implant DO [facility] and graft / Hospital Z955(ICD-10) Repository PROCEDURES PROCEDURES No Procedure Records FoundRESULTS RESULTS RF URETHROCYSTOGRAPHY Observed: 09/07/2018 Status: F Source: [employer] VOIDING 9:51 AM SYSTEM REPOSITORY Patient Name: DAHLIA MARINO Fluoroscopy Exam Date/Time 09/05/2018 10:14:33 EST Exam RF Urethrocystography Voiding Ordering Physician MD DECUE, MICHELINE Gaspar Accession Number [id number] CTP4 Codes 13725 () Reason For Exam concern for rectovaginal [...] 09/06/2018 Status: F Source: [place] 2:00 PM [facility] REPOSITORY TYPE CODE TESTS RESULT [...] Lymph 1.55 Performed By: #### L100.0100 #### [facility] [address] [place], [address] COMPREHENSIVE METABOLIC Collected: 09/06/2018 Status: F Source: [facility] 2:00 PM [facility] REPOSITORY TYPE CODE TESTS RESULT [...] Normal 8 Performed By: #### L500.4050 #### [facility] [address] [place], [address] ED PROVIDER NOTE Observed: 09/01/2018 Status: F Source: [employer] 1:20 PM SYSTEM REPOSITORY This patient presented [...] W/DIFF, AUTOMATED Collected: 08/31/2018 Status: F Source: [place] 2:15 PM [facility] REPOSITORY TYPE CODE TESTS RESULT [...] Lymph 2.02 Performed By: #### L100.0100 #### [facility] [address] [place], [place], [address] COMPREHENSIVE METABOLIC Collected: 08/31/2018 Status: F Source: [facility] 2:15 PM [facility] REPOSITORY TYPE CODE TESTS RESULT [...] 8 GAP Performed By: #### L500.4050 #### [facility] [address] [place] [address]. [place], [address] Observed: 08/30/2018 Status: F Source: [facility] SURGICAL PATHOLOGY 8:22 AM SYSTEM REPOSITORY [id number] [facility] DEPARTMENT OF [facility] PATHOLOGY AND LABORATORY MEDICINE [address] [place] [address] FINAL SURGICAL PATHOLOGY REPORT NAME: DAHLIA MARINO : 1970 48 Y F BILLING NO.: [id number] LOCATION: 1XEO PROCEDURE 08/30/2018 DATE: SURGEON: MICHELINE [...] characteristics determined by the clinical laboratories of [facility]. They have not been cleared by [...] negativity on decalcified specimens. Professional Performing Location: [address] [address]. DEPARTMENT OF PATHOLOGY AND LABORATORY MEDICINE [place], [place] [address] RF SMALL BOWEL W/ Observed: 08/25/2018 Status: F Source: [facility] SERIAL FILMS 2:30 PM SYSTEM REPOSITORY Patient Name: DAHLIA MARINO Fluoroscopy Exam Date/Time 08/25/2018 13:09:43 EST Exam RF Small Bowel w/ Serial Films Ordering Physician MD DEUCE, MICHELINE Gaspar Accession Number [id number] CTP4 Codes 32866 () Reason For Exam Crohn's Disease, rt. [...] 08/24/2018 Status: F Source: [place] 2:23 PM [facility] HOSPITAL REPOSITORY TYPE CODE TESTS RESULT [...] Lymph 2.16 Performed By: #### L100.0100 #### [facility] [address] [place], [address] COMPREHENSIVE METABOLIC Collected: 08/24/2018 Status: F Source: [facility] 2:23 PM [facility] REPOSITORY TYPE CODE TESTS RESULT [...] GAP 10 Performed By: #### L500.4050 #### [facility] [address] [place], [address] CBC W/DIFF, AUTOMATED Collected: 08/17/2018 Status: F [...] Lymph 1.59 Performed By: #### L100.0100 #### [facility] [address] [place], [place], [address] COMPREHENSIVE METABOLIC Collected: 08/17/2018 Status: F Source: [facility] 1:44 PM [facility] REPOSITORY TYPE CODE TESTS RESULT [...] GAP 8 Performed By: #### L500.4050 #### [facility] [address] [place], [address] CBC W/DIFF, AUTOMATED Collected: 08/10/2018 Status: F Source: [place] 2:22 PM [facility] REPOSITORY TYPE CODE TESTS RESULT [...] Lymph 2.17 Performed By: #### L100.0100 #### [facility] [address] [place], [address] COMPREHENSIVE METABOLIC Collected: 08/10/2018 Status: F Source: [facility] 2:22 PM [facility] REPOSITORY TYPE CODE TESTS RESULT [...] Normal 8 Performed By: #### L500.4050 #### [facility] [address] [facility] [place], [address] CT ABDOMEN/PELVIS W/ Observed: 08/04/2018 Status: F Source: [employer] CONTRAST 1:01 PM SYSTEM REPOSITORY Patient Name: DAHLIA MARINO CT Exam Date/Time 08/04/2018 12:09:[address] Abdomen/Pelvis w/ IV Contrast (IV Onl Ordering Physician MD MARCELA, JESSE Accession Number [id number] CPT4 Codes 87200 (CT Abdomen/Pelvis w/ IV Contrast (IV Onl), Q9967 (CT ISOVUE 370MG/[id number]) Reason For Exam RLQ phlegmon vs abscess [...] METABOLIC PANEL Collected: 08/04/2018 Status: F Source: [employer] 9:09 AM SYSTEM REPOSITORY TYPE CODE TESTS [...] Calcium 8.8 Performed By: #### BMP3 #### [facility] [address] [address] CBC W/DIFF, AUTOMATED Collected: 08/03/2018 Status: F Source: [place] 2:13 PM [facility] REPOSITORY TYPE CODE TESTS RESULT [...] Performed By: #### L100.0100 #### [facility] [address] [place], [place], [address] COMPREHENSIVE METABOLIC Collected: 08/03/2018 Status: F Source: [facility] 2:13 PM [facility] REPOSITORY TYPE CODE TESTS RESULT [...] Performed By: #### L500.4050 #### [facility] [address] [place] [address]. [place], [place], [id number] CBC W/DIFF, AUTOMATED Collected: 07/27/2018 Status: F Source: [place] 2:06 PM [facility] REPOSITORY TYPE CODE TESTS RESULT [...] Performed By: #### L100.0100 #### [facility] [address] [place], [place], [address] COMPREHENSIVE METABOLIC Collected: 07/27/2018 Status: F Source: [facility] 2:06 PM [facility] REPOSITORY TYPE CODE TESTS RESULT [...] Performed By: #### L500.4050 #### [facility] [address] [place], [address] CBC W/DIFF, AUTOMATED Collected: 07/21/2018 Status: F Source: [place] 2:35 PM [facility] REPOSITORY TYPE CODE TESTS RESULT [...] Performed By: #### L100.0100 #### [facility] [address] [place], [address] COMPREHENSIVE METABOLIC Collected: 07/21/2018 Status: F Source: [facility] 2:35 PM [facility] REPOSITORY TYPE CODE TESTS RESULT [...] Performed By: #### L500.4050 #### [facility] [address] [place] [address]. [place], [place], [id number] CR CHEST PORTABLE Observed: 07/20/2018 Status: F Source: [employer] 6:44 PM SYSTEM REPOSITORY Patient Name: DAHLIA MARINO Diagnostic Radiology Exam Date/Time 07/20/2018 16:55:27 EST Exam CR Chest Portable Ordering Physician DO PINON KATHRYN C Accession Number [id number] CPT4 Codes 91348 () Reason For Exam Line placement Report [...] DISCHARGE SUMMARY Observed: 07/20/2018 Status: F Source: [employer] 1:18 PM SYSTEM REPOSITORY Attestation signed by [...] resections x8), hypothyroidism, FM. Presented to [facility] ED on 07/17/18 with worsening abdominal pain. Patient was admitted to [facility] ED in 07/10, discharged 07/04/18. During [...] follow up with her GI doctor in [place], urged her to set up a follow up appointment soon after discharge. ID placed infusion orders for center in [place] with an appointment to start tomorrow. PROCEDURES: PICC placement CONSULTANTS: Interventional Radiology General Surgery Gastrointestinal Infectious Disease DISCHARGE MEDICATIONS: Dahlia Marino Home Medication Instructions MARLYN:[id number] Printed on:07/20/18 2833 Medication Information calcium-vitamin D (OSCAL) 250-125 MG-UNIT [...] Complexity: follow up within 7-14 calendar days (18488) [x] Severe Complexity: follow up within 7 calendar days (89443) FOLLOW UP TESTING, PENDING RESULTS OR REFERRALS AT TRANSITIONAL CARE VISIT: CT of abdomen after 2-3 weeks of abx [x] Yes [] No RECOMMENDED NEXT STEPS: Please follow up with Dr. Langston at the [facility] at 10am on 07/26/2018. Please follow up with your GI doctor in [place]. Please follow up with Dr. Micheline Tripathi of general surgery at [phone] as soon as possible for a follow up appointment in two weeks . DISPOSITION: Home Follow up [facility] [facility] [place] at 10am on [...] frame. TIFERON Collected: 07/20/2018 Status: F Source: [employer] 11:02 AM SYSTEM REPOSITORY TYPE CODE TESTS RESULT OUT OF REFERENCE UNITS RANGE LAB QTF Negative NA Quantiferon Negative Performed By: #### QTF #### [facility] [address] [id number] HEMOGRAM Collected: 07/20/2018 Status: F Source: [employer] 4:25 AM SYSTEM REPOSITORY TYPE CODE TESTS [...] By: #### HEMOG, BMP3M, MG3, PHOS3 #### [facility] [address] [place] [phone] BASIC METABOLIC PANEL Collected: 07/20/2018 Status: F Source: [employer] 4:25 AM SYSTEM REPOSITORY TYPE CODE TESTS [...] By: #### HEMOG, BMP3M, MG3, PHOS3 #### [facility] [address] [place] [address] MAGNESIUM Collected: 07/20/2018 Status: F Source: [employer] 4:25 AM SYSTEM REPOSITORY TYPE CODE TESTS RESULT OUT OF REFERENCE UNITS RANGE LAB MG3 1.6-2.3 mg/dL Low Magnesium 1.5 Performed By: #### HEMOG, BMP3M, MG3, PHOS3 #### [facility] [address] PHOSPHORUS Collected: 07/20/2018 Status: F Source: [employer] 4:25 AM SYSTEM REPOSITORY TYPE CODE TESTS RESULT OUT OF RANGE REFERENCE UNITS LAB PHOS3 2.5-4.5 mg/dL Normal Phosphorus 4.3 Performed By: #### HEMOG, BMP3M, MG3, PHOS3 #### [facility] [address] [place] [address] Observed: 07/19/2018 Status: F Source: [employer] CLOSTRIDIUM DIFFICILE 10:53 PM SYSTEM REPOSITORY PCR [...] be submitted. Performed By: #### CDPCR #### [facility] [address] [address] HEMOGRAM Collected: 07/19/2018 Status: F Source: [employer] 5:29 AM SYSTEM REPOSITORY TYPE CODE TESTS [...] By: #### HEMOG, BMP3M, MG3, PHOS3 #### [facility] [address] [place] [phone] BASIC METABOLIC PANEL Collected: 07/19/2018 Status: F Source: [employer] 5:29 AM SYSTEM REPOSITORY TYPE CODE TESTS [...] By: #### HEMOG, BMP3M, MG3, PHOS3 #### [facility] [address] [place] [phone] MAGNESIUM Collected: 07/19/2018 Status: F Source: [employer] 5:29 AM SYSTEM REPOSITORY TYPE CODE TESTS RESULT OUT OF RANGE REFERENCE UNITS LAB MG3 1.6-2.3 mg/dL Normal Magnesium 1.6 Performed By: #### HEMOG, BMP3M, MG3, PHOS3 #### [facility] [address] [phone] PHOSPHORUS Collected: 07/19/2018 Status: F Source: [employer] 5:29 AM SYSTEM REPOSITORY TYPE CODE TESTS RESULT OUT OF RANGE REFERENCE UNITS LAB PHOS3 2.5-4.5 mg/dL Normal Phosphorus 3.4 Performed By: #### HEMOG, BMP3M, MG3, PHOS3 #### [facility] [address] [address] HEMOGRAM Collected: 07/18/2018 Status: F Source: [employer] 5:02 AM SYSTEM REPOSITORY TYPE CODE TESTS [...] By: #### HEMOG, BMP3M, MG3, PHOS3 #### [facility] [address] [address] BASIC METABOLIC PANEL Collected: 07/18/2018 Status: F Source: [employer] 5:02 AM SYSTEM REPOSITORY TYPE CODE TESTS [...] By: #### HEMOG, BMP3M, MG3, PHOS3 #### [facility] [address] [place] [address] MAGNESIUM Collected: 07/18/2018 Status: F Source: [employer] 5:02 AM SYSTEM REPOSITORY TYPE CODE TESTS RESULT OUT OF RANGE REFERENCE UNITS LAB MG3 1.6-2.3 mg/dL Normal Magnesium 1.6 Performed By: #### HEMOG, BMP3M, MG3, PHOS3 #### [facility] [address] [place] [phone] PHOSPHORUS Collected: 07/18/2018 Status: F Source: [employer] 5:02 AM SYSTEM REPOSITORY TYPE CODE TESTS RESULT OUT OF RANGE REFERENCE UNITS LAB PHOS3 2.5-4.5 mg/dL Normal Phosphorus 3.5 Performed By: #### HEMOG, BMP3M, MG3, PHOS3 #### [facility] [address] [place] [phone] BASIC METABOLIC PANEL Collected: 07/17/2018 Status: F Source: [employer] 2:00 PM SYSTEM REPOSITORY TYPE CODE TESTS [...] Calcium 7.5 Performed By: #### BMP3 #### [facility] [address] [place], [place] LACTIC ACID Collected: 07/17/2018 Status: F Source: [employer] 11:25 AM SYSTEM REPOSITORY TYPE CODE TESTS RESULT OUT OF REFERENCE UNITS RANGE LAB LACT3 0.7-2.0 mmol/L Low Lactic Acid < 0.5 Performed By: #### LACT3 #### [facility] [address] [place], [place] Observed: 07/17/2018 Status: F Source: [employer] CULTURE URINE 8:28 AM SYSTEM REPOSITORY Order Comment: Specimen Source Comment:Urine, clean catch CULTURE URINE --> Status: F Normal urogenital elham present. Performed By: #### C/UR #### [facility]. [place], [place] CT ABDOMEN/PELVIS W/ Observed: 07/17/2018 Status: F Source: [employer] CONTRAST 5:09 AM SYSTEM REPOSITORY Patient Name: DAHLIA MARINO CT Exam Date/Time 07/17/2018 05:32:[address] Abdomen/Pelvis w/ IV Contrast (IV Onl Ordering Physician MD JAMIR, IRENE Gray Accession Number [id number] CPT4 Codes 62500 (CT Abdomen/Pelvis w/ IV Contrast (IV Onl), Q9967 (CT ISOVUE 370MG/[id number]) Reason For Exam recent abscess due to [...] 07/17/2018 5:09 Observed: 07/17/2018 Status: F Source: [employer] CULTURE BLOOD 4:57 AM SYSTEM REPOSITORY Order Comment: Specimen Source Comment:Blood CULTURE BLOOD --> Status: F No growth at 5 days. Performed By: #### C/BLD #### [facility] [address] [place] [phone] Observed: 07/17/2018 Status: F Source: [employer] CULTURE BLOOD (TWO) 4:01 AM SYSTEM REPOSITORY Order Comment: Specimen Source Comment:Blood CULTURE BLOOD (Two) --> Status: F No growth at 5 days. Performed By: #### C/BLT #### [facility] [address] [place] [phone] HEMOGRAM W/ AUTODIFF Collected: 07/17/2018 Status: F Source: [employer] 4:00 AM SYSTEM REPOSITORY TYPE CODE TESTS [...] LIPA4, LFT3, BMP3, CRP2, ESR, PCAL #### [facility] [address] [place] [phone] LACTIC ACID Collected: 07/17/2018 Status: F Source: [employer] 4:00 AM SYSTEM REPOSITORY TYPE CODE TESTS RESULT OUT OF RANGE REFERENCE UNITS LAB LACT3 0.7-2.0 mmol/L Normal Lactic Acid 1.2 Performed By: #### HEMDF, LACT3, LIPA4, LFT3, BMP3, CRP2, ESR, PCAL #### [facility] [address] [place] [phone] LIPASE Collected: 07/17/2018 Status: F Source: [employer] 4:00 AM SYSTEM REPOSITORY TYPE CODE TESTS RESULT OUT OF RANGE REFERENCE UNITS LAB LIPA4 23-300 U/L Normal Lipase 38 Performed By: #### HEMDF, LACT3, LIPA4, LFT3, BMP3, CRP2, ESR, PCAL #### [facility] [address] [place] [phone] HEPATIC FUNCTION Collected: 07/17/2018 Status: F Source: [employer] 4:00 AM SYSTEM REPOSITORY TYPE CODE TESTS [...] LIPA4, LFT3, BMP3, CRP2, ESR, PCAL #### [facility] [address] [place] [phone] BASIC METABOLIC PANEL Collected: 07/17/2018 Status: F Source: [employer] 4:00 AM SYSTEM REPOSITORY TYPE CODE TESTS [...] LIPA4, LFT3, BMP3, CRP2, ESR, PCAL #### [facility] [address] [place] [address] C-REACTIVE PROTEIN Collected: 07/17/2018 Status: F Source: [employer] 4:00 AM SYSTEM REPOSITORY TYPE CODE TESTS RESULT OUT OF REFERENCE UNITS RANGE LAB 2CRP 0.0-6.0 mg/L High C-Reactive 11.6 Protein Result Comment: . Performed By: #### HEMDF, LACT3, LIPA4, LFT3, BMP3, CRP2, ESR, PCAL #### [facility] [address] [place] [phone] SED RATE Collected: 07/17/2018 Status: F Source: [employer] 4:00 AM SYSTEM REPOSITORY TYPE CODE TESTS RESULT OUT OF RANGE REFERENCE UNITS LAB ESR 0-20 mm/h High Sed Rate 27 Performed By: #### HEMDF, LACT3, LIPA4, LFT3, BMP3, CRP2, ESR, PCAL #### [facility] [address] [place] [phone] PROCALCITONIN Collected: 07/17/2018 Status: F Source: [employer] 4:00 AM SYSTEM REPOSITORY TYPE CODE TESTS RESULT OUT OF REFERENCE UNITS RANGE LAB PRO <0.10 ng/mL Procalcitonin Normal < 0.10 LAB INT3 NA Interpretation See Below Result Comment: PCT <0.50 = Low risk of severe sepsis and/or septic shock. PCT >2.00 = High risk of severe sepsis and/or septic shock. Performed By: #### HEMDF, LACT3, LIPA4, LFT3, BMP3, CRP2, ESR, PCAL #### [facility] [address] [place] [phone] ED PROVIDER NOTE Observed: 07/17/2018 Status: F Source: [employer] 2:30 AM SYSTEM REPOSITORY [facility] EMERGENCY DEPT eMERGENCY dEPARTMENT eNCOUnter Pt Name: Dahlia Marino Birthdate 1970 Date of evaluation: 07/17/2018 Provider: Irene Marlow MD Chief Complaint: No chief complaint on file. CHILKAT: Dahlia Marino is a 48 y.o. female [...] antibiotics in the hospital. She is from [place] but was referred here because the hospital [...] by myself in the absence of a breast trimmer) none Chart review shows recent radiographs: Ct Abdomen Pelvis W Contrast Result Date: 07/02/2018 Patient Name: DAHLIA MARINO ---CT--- Exam Date/Time 07/02/2018 07:47:[address] Abdomen/Pelvis w/ IV Contrast (IV Onl Ordering Physician MD IVIS, MPH, MICHELINE Accession Number [id number] CPT4 Codes 63229 (CT Abdomen/Pelvis w/ IV Contrast (IV Onl), Q9967 (CT ISOVUE 370MG/[id number]&ML&1) Reason For Exam Crohns flare, known abscess [...] PROVIDER NOTE Observed: 07/17/2018 Status: F Source: [employer] 2:30 AM SYSTEM REPOSITORY Emergency Department Encounter Location: [facility] EMERGENCY DEPT Patient: Dahlia Marino : [...] # 1.4 1.0 - 4.3 10*3/uL Absolute [place] # 1.2 (H) 0.0 - 0.8 10*3/uL [...] eGFR >60.0 >60 mL/min EGFR IF NonAfrican Welsh >60.0 >60 mL/min Calcium 8.1 (L) 8.4 [...] Physician MD JAMIR, IRENE Gray Accession Number [id number] CPT4 Codes 70909 (CT Abdomen/Pelvis w/ IV Contrast (IV Onl), Q9967 (CT ISOVUE 370MG/ML&[id number]&ML&1) Reason For Exam recent abscess due to [...] Dictated: 07/17/2018 5:09 am Dictating Physician: MD VENECS DIANE Signed Date and Time: 07/17/2018 5:16 [...] are mis-transcribed.) Bon Mercedes MD Acute Care [facility] Bon Mercedes MD 07/17/18 0551 DISCHARGE SUMMARY Observed: 07/04/2018 Status: F Source: [employer] 11:29 AM SYSTEM REPOSITORY Attestation signed by [...] on gregory), hypothyroidism, fibromyalgia presented to [facility] w/ progressive 6 week hx of abdominal pain. She was first seen at [facility] in [place], [place] 6wks prior to admission for abdominal [...] in the urine. CT abdomen done at [facility] (07/01/18) which showed a complex inflammatory collection/mass in anterior RLQ abscess. Patient was then transferred to [facility] the same day for further management and a second opinion. Patient and then requested transfer to [facility] as they have had family treated [...] DISCHARGE MEDICATIONS: Dahlia Marino Home Medication Instructions MARLYN:[id number] Printed on:07/05/18 1008 Medication Information adalimumab (HUMIRA) 40 MG/0.8ML injection [...] Complexity: follow up within 7-14 calendar days (63926) [] Severe Complexity: follow up within 7 calendar days (13320) FOLLOW UP TESTING, PENDING RESULTS OR REFERRALS [...] W/ AUTODIFF Collected: 07/04/2018 Status: F Source: [employer] 5:08 AM SYSTEM REPOSITORY TYPE CODE TESTS [...] #### HEMDF, BMP3M, MG3, PHOS3, LFT3 #### [facility] [address] [place] [address] BASIC METABOLIC PANEL Collected: 07/04/2018 Status: F Source: [employer] 5:08 AM SYSTEM REPOSITORY TYPE CODE TESTS [...] #### HEMDF, BMP3M, MG3, PHOS3, LFT3 #### [facility] [address] [place] [phone] MAGNESIUM Collected: 07/04/2018 Status: F Source: [employer] 5:08 AM SYSTEM REPOSITORY TYPE CODE TESTS RESULT OUT OF RANGE REFERENCE UNITS LAB MG3 1.6-2.3 mg/dL Normal Magnesium 1.8 Performed By: #### HEMDF, BMP3M, MG3, PHOS3, LFT3 #### [facility] [address] [place] [phone] PHOSPHORUS Collected: 07/04/2018 Status: F Source: [employer] 5:08 AM SYSTEM REPOSITORY TYPE CODE TESTS RESULT OUT OF RANGE REFERENCE UNITS LAB PHOS3 2.5-4.5 mg/dL Normal Phosphorus 3.8 Performed By: #### HEMDF, BMP3M, MG3, PHOS3, LFT3 #### [facility] [address] [place] [phone] HEPATIC FUNCTION Collected: 07/04/2018 Status: F Source: [employer] 5:08 AM SYSTEM REPOSITORY TYPE CODE TESTS [...] #### HEMDF, BMP3M, MG3, PHOS3, LFT3 #### [facility] [address] [place] [phone] HEMOGRAM W/ AUTODIFF Collected: 07/03/2018 Status: F Source: [employer] 2:31 AM SYSTEM REPOSITORY TYPE CODE TESTS [...] By: #### HEMDF, MG3, PHOS3, BMP3M #### [facility] [address] [place] [address] MAGNESIUM Collected: 07/03/2018 Status: F Source: [employer] 2:31 AM SYSTEM REPOSITORY TYPE CODE TESTS RESULT OUT OF RANGE REFERENCE UNITS LAB MG3 1.6-2.3 mg/dL Normal Magnesium 2.1 Performed By: #### HEMDF, MG3, PHOS3, BMP3M #### [facility] [place], [place] PHOSPHORUS Collected: 07/03/2018 Status: F Source: [employer] 2:31 AM SYSTEM REPOSITORY TYPE CODE TESTS RESULT OUT OF RANGE REFERENCE UNITS LAB PHOS3 2.5-4.5 mg/dL Normal Phosphorus 3.8 Performed By: #### HEMDF, MG3, PHOS3, BMP3M #### [facility] [address] [place] [address] BASIC METABOLIC PANEL Collected: 07/03/2018 Status: F Source: [employer] 2:31 AM SYSTEM REPOSITORY TYPE CODE TESTS [...] By: #### HEMDF, MG3, PHOS3, BMP3M #### [facility] [address] [place] [address] URINALYSIS,MACRO Collected: 07/03/2018 Status: F Source: [employer] 2:23 AM SYSTEM REPOSITORY TYPE CODE TESTS RESULT OUT OF REFERENCE UNITS RANGE LAB APPUR Clear NA Appearance Cloudy LAB COLUR Lt. Yellow NA Color Yellow LAB USG 1.005-1.030 NA Specific Normal [place],Urine 1.015 LAB UPH 5.0-8.0 NA pH,Urine Normal [...] UAMAC, UAMIC #### [facility] [address] [place] [address] URINALYSIS,MICROSCOPIC Collected: Status: F Source: [employer] 07/03/2018 2:23 AM HEALTH SYSTEM REPOSITORY TYPE [...] UAMAC, UAMIC #### [facility] [place] [address] Observed: 07/03/2018 Status: F Source: [employer] CULTURE URINE 2:23 AM SYSTEM REPOSITORY Order Comment: Specimen Source Comment:Urine, clean catch CULTURE URINE --> Status: F No growth (<1,000 CFU/ml). Performed By: #### C/UR #### [facility] [address] [address] [address] ABDOMEN/PELVIS W/ Observed: 07/02/2018 Status: F Source: [employer] CONTRAST 8:06 AM SYSTEM REPOSITORY Patient Name: DAHLIA MARINO CT Exam Date/Time 07/02/2018 07:47:[address] Abdomen/Pelvis w/ IV Contrast (IV Onl Ordering Physician MD IVIS, MPH, MICHELINE Reyes Number [id number] CPT4 Codes 97985 (CT Abdomen/Pelvis w/ IV Contrast (IV Onl), Q9967 (CT ISOVUE 370MG/[id number]) Reason For Exam Crohns flare, known abscess [...] 8:06 URINALYSIS,MACRO Collected: 07/02/2018 Status: F Source: [employer] 1:59 AM SYSTEM REPOSITORY TYPE CODE TESTS RESULT OUT OF REFERENCE UNITS RANGE LAB APPUR Clear NA Appearance Clear LAB COLUR Lt. Yellow NA Color P. Yellow LAB USG 1.005-1.030 NA Specific Normal [place],Urine 1.010 LAB UPH 5.0-8.0 NA pH,Urine Normal [...] 25 Performed By: #### UAMAC, UAMIC #### [employer] [facility] [address] [address] URINALYSIS,MICROSCOPIC Collected: Status: F Source: [employer] 07/02/2018 1:59 AM HEALTH SYSTEM REPOSITORY TYPE CODE TESTS RESULT OUT OF REFERENCE UNITS RANGE LAB WBCU 0-5 /[HPF] 11 WBC,Urine - 25 LAB RBCU 0-2 /[HPF] 3 RBC,Urine - 5 LAB EPIU 3-5 /[HPF] 3 Epithelial Cells - 5 LAB LILLIAM Negative NA Bacteria Moderate (6-50) Performed By: #### UAMAC, UAMIC #### [facility] [address] [place] [address] Observed: 07/02/2018 Status: F Source: [employer] BLOOD 1:45 AM SYSTEM REPOSITORY Order Comment: Specimen Source Comment:Blood CULTURE BLOOD --> Status: F No growth at 5 days. Performed By: #### C/BLD #### [facility] [address] [place] [address] Observed: 07/02/2018 Status: F Source: [employer] BLOOD (TWO) 1:45 AM SYSTEM REPOSITORY Order Comment: Specimen Source Comment:Blood CULTURE BLOOD (Two) --> Status: F No growth at 5 days. Performed By: #### C/BLT #### [facility] [address] HEMOGRAM W/ AUTODIFF Collected: 07/02/2018 Status: F Source: [employer] 1:37 AM SYSTEM REPOSITORY TYPE CODE TESTS [...] LACT3, TSH5, CMP3, MG3, FT4M, TROPN #### [facility] [address] [place] [phone] PROTHROMBIN TIME Collected: 07/02/2018 Status: F Source: [employer] 1:37 AM SYSTEM REPOSITORY TYPE CODE TESTS [...] LACT3, TSH5, CMP3, MG3, FT4M, TROPN #### [facility] [address] [place] [phone] LACTIC ACID Collected: 07/02/2018 Status: F Source: [employer] 1:37 AM SYSTEM REPOSITORY TYPE CODE TESTS RESULT OUT OF REFERENCE UNITS RANGE LAB LACT3 0.7-2.0 mmol/L Low Lactic Acid 0.6 Performed By: #### HEMDF, PT, LACT3, TSH5, CMP3, MG3, FT4M, TROPN #### [facility] [address] [place] [phone] THYROID STIM. Collected: 07/02/2018 Status: F Source: [employer] HORMONE 1:37 AM SYSTEM REPOSITORY TYPE CODE TESTS RESULT OUT OF REFERENCE UNITS RANGE LAB TSH5 0.465-4.680 u[IU]/mL Low Thyroid Stim. 0.175 Hormone Performed By: #### HEMDF, PT, LACT3, TSH5, CMP3, MG3, FT4M, TROPN #### [facility] [address] [place] [phone] COMP METABOLIC PANEL Collected: 07/02/2018 Status: F Source: [employer] 1:37 AM SYSTEM REPOSITORY TYPE CODE TESTS [...] LACT3, TSH5, CMP3, MG3, FT4M, TROPN #### [facility] [address] [place] [phone] MAGNESIUM Collected: 07/02/2018 Status: F Source: [employer] 1:37 AM SYSTEM REPOSITORY TYPE CODE TESTS RESULT OUT OF REFERENCE UNITS RANGE LAB MG3 1.6-2.3 mg/dL Low Magnesium 1.5 Performed By: #### HEMDF, PT, LACT3, TSH5, CMP3, MG3, FT4M, TROPN #### [facility] [address] [place] [phone] FREE T4 Collected: 07/02/2018 Status: F Source: [employer] 1:37 AM SYSTEM REPOSITORY TYPE CODE TESTS RESULT OUT OF RANGE REFERENCE UNITS LAB FT4M 0.78-2.19 ng/dL Normal Free T4 1.87 Performed By: #### HEMDF, PT, LACT3, TSH5, CMP3, MG3, FT4M, TROPN #### [facility] [address] [place] [address] TROPONIN I Collected: 07/02/2018 Status: F Source: [employer] 1:37 AM SYSTEM REPOSITORY TYPE CODE TESTS RESULT OUT OF RANGE REFERENCE UNITS LAB TROP4 0.000-0.034 ng/mL Normal Troponin I < 0.012 Result Comment: 0.046 - 0.400 = Indeterminate > 0.400 = Consider Myocardial Injury Performed By: #### HEMDF, PT, LACT3, TSH5, CMP3, MG3, FT4M, TROPN #### [facility] [address] [place] [address] ED PROVIDER NOTE Observed: 07/02/2018 Status: F Source: [employer] 12:02 AM SYSTEM REPOSITORY Emergency Department Encounter [...] the past few weeks, was seen at [facility]. yesterday, CT there showed an intra-abdominal [...] otherwise acutely negative except as in the CHILKAT. Past History Past Medical History: Diagnosis Date [...] # 1.6 1.0 - 4.3 10*3/uL Absolute [place] # 1.4 (H) 0.0 - 0.8 10*3/uL [...] eGFR >60.0 >60 mL/min EGFR IF NonAfrican Welsh >60.0 >60 mL/min Calcium 8.0 (L) 8.4 [...] UA P. Yellow Lt. Yellow NA Specific [place], Urine 1.010 1.005 - 1.030 NA pH, [...] me Rhythm: normal sinus Rate: normal, 83 [place]: normal Ectopy: none Conduction: normal ST Segments: [...] [facility], only got the CAT scan results [...] PROVIDER NOTE Observed: 07/02/2018 Status: F Source: [employer] 12:02 AM SYSTEM REPOSITORY Emergency Department Encounter [facility] EMERGENCY DEPT Patient: Dahlia Marino : 1970 Date of Evaluation: 07/02/2018 ED Provider: BLAIR HOLDEN CNP As the [id number], I performed a medical screening history and [...] per patient and family. They were at [facility] earlier this morning. Per report from family CT was done with oral contrast finding possible abscess below her liver. He was transferred [facility] without their knowledge. Family states they thought she was coming here. He was at [facility] day and that concerns about her [...] NURSING PROG Observed: 07/01/2018 Status: COMPLETED Source: [place] 11:34 PM [facility] REPOSITORY HNO ID: [id number] Author: Meme (Rn) EZEKIEL Ramsay Service: Emergency [...] this. I personally spoke with Winter Paez WHANAU SUPPORT WORKER, requested further order to check labs including [...] bleeding. PROGRESS Observed: 07/01/2018 Status: COMPLETED Source: [place] 11:15 PM [facility] REPOSITORY HNO ID: [id number] Author: Jeannine (Clayton) BLAIR Womack.CLAYTON Service: (none) Author Type: Nurse Practitioner Type: Progress Notes Filed: 07/01/2018 11:51 PM Note Text: CTBS for patient requesting to leave AMA. Nursing tire service supervisor on floor speaking with patient and [...] of testing. Family is taking patient to [facility] ED at this time. Pt is alert and oriented x 3, capable of making decisions. AMA paperwork filled out and signed at bedside. Jeannine Womack CNP NURSING PROG Observed: 07/01/2018 Status: COMPLETED Source: [place] 9:25 PM CLINIC OTHER CAMPUS REPOSITORY HNO ID: [id number] Author: Ester (Rn) EZEKIEL Kamara Service: (none) [...] AND PELVIS Observed: 07/01/2018 Status: F Source: [facility] WITH CONTRAST 8:57 PM HEALTH SYSTEM REPOSITORY Performed at [facility] APPROVED BY: Zia Maurer MD Exam [...] advised. CONSULT Observed: 07/01/2018 Status: COMPLETED Source: [place] 4:02 PM [facility] REPOSITORY [facility] ID: [id number] Author: Misty Mcdonald Service: General Surgery Author Type: Resident Type: Consults Filed: 07/01/2018 9:06 PM Note Text: Attestation signed by Nick Franks at 07/02/2018 11:47 AM Management per GI and radiology No surgery intervention required Nick Franks MD July 02, 2018 CONSULT: EMERGENCY GENERAL [...] returned and got worse. Patient presented to [facility] ED where CT Abd/Pelvis showed a possible [...] Crohns management and colonoscopy Discussed with Dr. Moni MD Emergency General Surgery Service Pager: For questions or concerns Mon-Fri 6a-5p please page [phone]. After 5pm and on Weekends and Holidays, please page [phone] if in ICU or [phone] if on RNF. SIGNATURE: Misty Mcdonald MD PATIENT NAME: Dahlia Marino DATE: July 01, 2018 TIME: 4:02 PM PAGER: above CONSULT PROG Observed: 07/01/2018 Status: COMPLETED Source: [place] 3:57 PM CLINIC OTHER CAMPUS REPOSITORY O ID: [id number] Author: Kamran Colon Service: Gastroenterology Author Type: [...] ago per patient) who presented to the [facility] ED for abdominal pain. She stated she [...] she called EMS who transferred her to [facility]. In the ED her abdominal CT revealed possible abscess vs neoplasms so she was transferred to [facility]. She denied melena, hematochezia, hematemesis, [...] about 3-4 years ago (no record in [facility]). FUNCTIONAL STATUS: Independent PAST MEDICAL HISTORY Diagnosis [...] patient 3-4 years ago (no record in [facility]) Assessment AND Plan: Repeat Abdominal CT with [...] patient 3-4 years ago (no record in [facility]) Assessment AND Plan: Need records from [employer] System Maintenance Worker Dr. Loomis in [place]. SIGNATURE: Kamran Colon APRN.CNP PATIENT NAME: Dahlia Marino DATE: July 01, 2018 TIME: 3:57 PM PAGER: NUTRITION Observed: 07/01/2018 Status: COMPLETED Source: [place] 3:47 PM CLINIC OTHER CAMPUS REPOSITORY HNO ID: [id number] Author: Argentina Zuluaga RD (Ld) Service: Nutrition [...] gm protein per serving and vanilla Boost [facility] QD, to provide 530 kcal and [...] nutritional status Reason for Assessment: Consult from SOLUTION ARCHITECT for patient with 28 lbs weight loss in 4 weeks. Per HPI: This is a 47 year old female with PMH of crohns, hypothyroid, wallace, ape, liver sx d/t infection who presents to the [facility] from [facility]. Pt called EMS and had them take [...] ENSURE CLEAR MIXED PEREZ Supplement 2: [facility] Lines and Drains: Peripheral 07/01/18 [...] Admitted) 07/01/18 0700 - 07/02/18 0659 Shift 3991-6834 [phone] 24 Hour Total 8099-1276 7688-8806 2321-9438 24 Hour Total I N T A [...] July 01, 2018 TIME: 4:25 PM PAGER: 1977 CEA Collected: 07/01/2018 Status: F Source: [facility] 1:55 PM HEALTH SYSTEM REPOSITORY TYPE CODE TESTS RESULT OUT OF RANGE REFERENCE UNITS LAB CEA(LOINC) 0.0-3.0 ng/mL CEA 2.5 Result Comment: The reference range shown is for adult non-smokers. The range for smokers is 0-5.0 Testing performed by Chemiluminescence LOCI. Performed By: #### CEA #### [place] [address] MAGNESIUM BLOOD Collected: 07/01/2018 Status: F Source: [facility] 1:55 PM HEALTH SYSTEM REPOSITORY TYPE CODE TESTS RESULT OUT OF REFERENCE UNITS RANGE LAB MAG(LOINC) 1.6-2.6 mg/dL Magnesium Blood 1.6 Performed By: #### MAG #### [place] [address] Observed: 07/01/2018 Status: F Source: [facility] CULT BLOOD 12:00 PM HEALTH SYSTEM REPOSITORY Test performed at [facility] No growth Performed By: #### C_BLO #### [place] [address] HEMOGRAM Collected: 07/01/2018 Status: F Source: [facility] 11:55 AM HEALTH SYSTEM REPOSITORY TYPE [...] MPV 9.8 Performed By: #### CBC1 #### [place] [address] LACTIC ACID Collected: 07/01/2018 Status: F Source: [facility] 11:55 AM HEALTH SYSTEM REPOSITORY TYPE CODE TESTS RESULT OUT OF REFERENCE UNITS RANGE LAB LAC(LOINC) 0.4-2.0 mEq/L Lactic Acid 0.4 Performed By: #### LAC #### [place] [address] PHOSPHORUS BLOOD Collected: 07/01/2018 Status: F Source: [facility] 11:55 AM HEALTH SYSTEM REPOSITORY TYPE CODE TESTS RESULT OUT OF REFERENCE UNITS RANGE LAB PHOS(LOINC 2.5-4.9 mg/dL ) Phosphorus Blood 3.8 Performed By: #### PHOS #### [place] [address] CRP Collected: 07/01/2018 Status: F Source: [facility] 11:55 AM HEALTH SYSTEM REPOSITORY TYPE CODE TESTS RESULT OUT OF RANGE REFERENCE UNITS LAB CRP3(LOINC) 0.00-0.30 mg/dL High CRP 8.04 Performed By: #### CRP3 #### [facility] [address] [place] [address] COMPREHENSIVE PANEL Collected: 07/01/2018 Status: F Source: [facility] 11:55 AM HEALTH SYSTEM REPOSITORY TYPE [...] Gap 12 Performed By: #### P14 #### [place] [address] MDRD GFR Collected: 07/01/2018 Status: F Source: [facility] 11:[facility] SYSTEM REPOSITORY TYPE CODE TESTS RESULT OUT OF RANGE REFERENCE UNITS LAB GFRFN(LOINC >60mL/min/1.73m ) 2 eGFR >60 Result Comment: If the patient is , multiply the result by 1.210. Performed By: #### GFR #### [facility] [address] [place] [address] PROTIME Collected: 07/01/2018 Status: F Source: [place] [address]:[address] [place] [address] SYSTEM REPOSITORY TYPE CODE TESTS RESULT OUT OF REFERENCE UNITS RANGE LAB PTI(LOINC) 9.7-13.0 sec Prothrombin Time 11.7 LAB INR(LOINC) 0.90-1.30 INR 1.14 Result Comment: Note: Reference Range Change Vitamin K Antagonist (VKA) Therapeutic Range: INR 2 to 3 (Target INR of 2.5) Note: For patients treated with VKA drugs, such as warfarin, the [employer] 2012 Guideline recommends [...] 70: 252-289 Performed By: #### PT #### [place] [address] ACTIVATED PTT Collected: 07/01/2018 Status: F Source: [facility] 11:[address] [place] [address] SYSTEM REPOSITORY TYPE CODE TESTS RESULT OUT [...] laboratory APTT reagent in use throughout the [facility]. Performed By: #### APTT #### [facility] [address] [place], [place] [address] SED RATE Collected: 07/01/2018 Status: F Source: [facility] 11:55 AM HEALTH SYSTEM REPOSITORY TYPE CODE TESTS RESULT OUT OF RANGE REFERENCE UNITS LAB ESR(LOINC) 0-20 mm/hr High Sed Rate 38 Performed By: #### ESR #### [facility] [address] [place], [place] [address] HISTORY PHYSICAL Observed: 07/01/2018 Status: COMPLETED Source: [facility] 11:14 AM CLINIC OTHER CAMPUS REPOSITORY HNO ID: [id number] Author: Meryl Hogan Service: Hospital Medicine Author Type: Nurse Practitioner Type: HANDP Filed: 07/01/2018 11:50 AM Note Text: Attestation signed by Jose Altamirano at 2018 5:50 PM (Updated) I have personally seen and examined the patient. I agree with the SOLUTION ARCHITECT's note with following addition. Ms Marino, a 47 years old lady who has hx of UC and is on Humira Q week (last dose 2 weeks ago) under care of GI (? Dr Bender in [facility]) and multiple bowel surgeries including bowel resection, has abdominal pain for more than a month initially in lower part now generalized worse with food. Has fever in the last few days. Normal BM (reported diarrhea to [facility]), no nausea. Was treated with flagyl for a week a month ago. Last c scope > 5 years ago and last surgery > 5 years ago. She presented to [facility] where she was noted to have [...] 2 weeks ago), under the care of fugitive detective ? Dr Bender 4. Hx of multiple [...] sx d/t infection who presents to the [facility] from [facility]. Pt called EMS and had them take [...] July 01, 2018 TIME: 11:15 AM PAGER: [id number] CT ABDOMEN/PELVIS W Observed: 07/01/2018 Status: F [facility] AM [place] [address] Patient: DAHLIA MARINO Phone#: : 1970 Age: 47 Gender: F Pt. Type: ER Account: [id number] Location: 2 Ordering: DOROTEO TABOR Exam Date: 07/01/2018/0:28 Family Phys: MARLO Pj LANG Charge Code: 524959 Physician: [place] Order #: [id number] DLP Dose#: 9.80 PROCEDURE: CT ABDOMEN/PELVIS WITH [...] 47 Gender: F Pt. Type: ER Account: [id number] Location: 052 Ordering: DOROTEO TABOR Exam Date: 07/01/2018/0:28 Family Phys: MARLO LANG Charge Code: 409584 Physician: Livingston Order #: [id number] DLP Dose#: 9.80 ABDOMINAL WALL: Normal. No [...] 8:50 URINALYSIS Collected: 07/01/2018 Status: F Source: [facility] 12:34 AM [facility] REPOSITORY TYPE CODE TESTS RESULT OUT [...] Urobilinog(LOINC) NORMAL: NORMAL Urobilinog NORM LAB [employer](LOINC) NORMAL: 1.010-1.[address] [employer] 1.015 LAB Nitrite(LOINC) NORMAL: NEGATIVE Nitrite NEG [...] LAB Yeast(LOINC) Yeast NONE Performed By: #### [id number] #### [facility],[address] [place] [address] Observed: 06/30/2018 Status: F Source: [facility] CULTURE BLOOD 11:25 PM [facility] REPOSITORY CULTURE BLOOD CULTURE BLOOD SET: 2 of 2 24HOUR REPORT NEGATIVE 48HOUR REPORT NEGATIVE 72HOUR REPORT NEGATIVE M I C R O B I O L O G Y R E P O R T FINAL Antimicrobial Susceptibility and Organism Identification Report Specimen Number : [id number] Requested : 06/30/18 Specimen Source : BLOOD Collected : 06/30/18 23:25 [place] [facility] : Emergency Room Received : 06/30/18 23:25 Requesting Physician : christina Patient/Specimen Tests and Comments Specimen Comments FINAL REPORT: No Growth at 5 Days Tech : Source : BLOOD ID # : [id number] FINAL Report Date : / / : Collected : 06/30/18 23:25 07/06/18.1142.BKO. 07/06/18.1142.BKO.COMPLETE Performed By: #### [id number] #### [facility],[address] [place] [address] CBC Collected: 06/30/2018 Status: F Source: [facility] 10:45 PM [facility] REPOSITORY TYPE CODE TESTS RESULT OUT [...] x10EE3/U L Neut # High 10.00 LAB [place] #(LOINC) 0.20 - 1.00 x10EE3/U L [place] # High 1.30 LAB EO #(LOINC) 0.00 - 0.50 x10EE3/U L EO # 0.00 LAB Baso #(LOINC) 0.00 - 0.10 x10EE3/U L Baso # 0.10 LAB MANUAL DIFF([facility]) MANUAL DIFF N/A LAB MORPHOLOGY(INC ) MORPHOLOGY N/A Result Comment: {CD] Performed By: #### [id number] #### [place] [address] LACTATE Collected: 06/30/2018 Status: F Source: [facility] 10:45 PM [facility] REPOSITORY TYPE CODE TESTS RESULT OUT OF REFERENCE UNITS RANGE LAB LACTATE(MESSI 4.5 - 18.0 mg/dL [place]) Low LACTATE 4.3 Performed By: #### [id number] #### [place] [address] CMP WITH EGFR Collected: 06/30/2018 Status: F Source: [facility] 10:45 PM [facility] REPOSITORY TYPE CODE TESTS RESULT OUT [...] OF AGE AND OLDER. Performed By: #### 125873 #### [place] [id number] LIPASE Collected: 06/30/2018 Status: F Source: [facility] 10:45 [facility] REPOSITORY TYPE CODE TESTS RESULT OUT OF REFERENCE UNITS RANGE LAB LIPASE(LOIN 18.0 - 51.0 U/L C) LIPASE 18.0 Performed By: #### [id number] #### [place] [id number] TROPONIN Collected: 06/30/2018 Status: F Source: [facility] 10:45 [facility] REPOSITORY TYPE CODE TESTS RESULT [...] such as heterophile antibodies). Performed By: #### [id number] #### [facility],[address] [place] [address] TSH Collected: 06/30/2018 Status: F Source: [facility] 10:45 PM [facility] REPOSITORY TYPE CODE TESTS RESULT OUT OF RANGE REFERENCE UNITS LAB TSH(LOINC) 0.34 - 5.60 uIU/ml Low TSH 0.17 Performed By: #### [id number] #### [place] [address] Observed: 06/30/2018 Status: F Source: [facility] CULTURE BLOOD 10:45 [facility] REPOSITORY CULTURE BLOOD CULTURE BLOOD SET: 1 of 2 24HOUR REPORT NEGATIVE 48HOUR REPORT NEGATIVE 72HOUR REPORT NEGATIVE M I C R O B I O L O G Y R E P O R T FINAL Antimicrobial Susceptibility and Organism Identification Report Specimen Number : [id number] Requested : 06/30/18 Specimen Source : BLOOD Collected : 06/30/18 22:45 [place] [facility] [place] : Emergency Room Received : 06/30/18 22:45 Requesting Physician : christina Patient/Specimen Tests and Comments Specimen Comments FINAL REPORT: No Growth at 5 Days Tech : Source : BLOOD ID # : [id number] FINAL Report Date : / / : Collected : 06/30/18 22:45 07/06/18.1142.BKO. 07/06/18.1142.BKO.COMPLETE Performed By: #### [id number] #### [facility],[address] [place] [address] EMERGENCY REPORT Observed: 06/30/2018 Status: F Source: [facility] 9:55 PM [facility] EMERGENCY ROOM REPORT NAME ACCOUNT SEX AGE ADMIT DISCHARGE PT MED. RECORD# NUMBER DATE DATE TYPE DAHLIA MARINO [id number] F 47 06/30/18 07/01/18 3 R [id number] ROOM: ER DATE OF : 1970 DICTATING [...] first contacted our surgical service here at [facility], who due to this patient's complicated medical history suggested transfer to [place] in [place]. I then contacted [place], who suggested contacting the [facility] due to her complicated history. I then contacted [facility], who was agreeable with accepting the patient. The patient was monitored in our Emergency Department throughout the night and then transferred in stable condition. Dictated By: Doroteo Tabor DO 07/01/18 07:00 JOB #: [id number] Transcribed By: jen 07/01/18 09:44 Electronically signed by: E-SIGN: Doroteo Tabor D.O. 07/08/18 06:49 Page 2 of 2 DAHLIA MARINO Emergency Room Report EMERGENCY REPORT Observed: 06/30/2018 Status: F Source: [facility] 9:55 PM [facility] EMERGENCY ROOM REPORT NAME ACCOUNT SEX AGE ADMIT DISCHARGE PT MED. RECORD# NUMBER DATE DATE TYPE DAHLIA MARINO [id number] F 47 06/30/18 07/01/18 3 R [id number] ROOM: ER DATE OF : 1970 DICTATING [...] Lore Mujica DO 07/01/18 08:22 JOB #: [id number] Transcribed By: jen 07/01/18 10:00 Electronically signed by: E-Sign: LORE MUJICA MD 07/12/18 12:00 Page 1 of 1 DAHLIA MARINO Emergency Room Report EMERGENCY DEPARTMENT Observed: 05/11/2018 Status: F Source: [facility] 4:14 PM [facility] [place] [address] HEALTH INFORMATION MANAGEMENT EMERGENCY DEPARTMENT REPORT Patient: DAHLIA MARINO KATIA TAMEZ D.O. [id number] [age] F Status: DEP ER ED Date of Service: 05/08/18 CHIEF COMPLAINT A 47-year-old female. Chief complaint: Vaginal problem. HISTORY OF PRESENT ILLNESS The patient says she has had a recurrent yeast infection. She has had a discolored discharge. She has had a hysterectomy. 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 No other complaints. No abdominal pain, just [...] I am going to refer her to [facility] for followup. <Electronically signed by KATIA TAMEZ D.O.> 05/12/18 0538 KATIA TAMEZ D.O. cc: KATIA TAMEZ D.O. << Signature on File>> Reported By: KATIA TAMEZ D.O. Signed By: KATIA TAMEZ D.O. Tests performed at: [address] [address] ED PROV NOTE Observed: 05/11/2018 Status: COMPLETED Source: [facility] 4:14 PM CLINIC MAIN CAMPUS REPOSITORY HNO ID: [id number] Author: Katia Tamez Service: (none) Author Type: Physician Type: ED Provider Notes Filed: 06/23/2018 9:00 PM Note Text: [place] [address] HEALTH INFORMATION MANAGEMENT EMERGENCY DEPARTMENT REPORT Patient: DAHLIA MARINO KATIA TAMEZ D.O. [id number] [age] F Status: [facility] ER ED Date of Service: 05/08/18 CHIEF COMPLAINT A 47-year-old female. Chief complaint: Vaginal problem. HISTORY OF PRESENT ILLNESS The patient says she has had a recurrent yeast infection. She has had a discolored discharge. She has had a hysterectomy. 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 No other complaints. No abdominal pain, just [...] I am going to refer her to [facility] for followup. <Electronically signed by KATIA TAMEZ D.O.> 05/12/18 0538 KATIA TAMEZ D.O. cc: KATIA TAMEZ D.O. << Signature on File>> Reported By: KATIA TAMEZ D.O. Signed By: KATIA TAMEZ D.O. Tests performed at: [address] [address] Observed: 05/08/2018 Status: F Source: [facility] WET PREP 3:09 AM HOSPITAL REPOSITORY WET PREP FEW EPITHELIAL CELLS MANY WBC'S FEW RBC'S NEGATIVE FOR YEAST NEGATIVE FOR TRICHOMONAS Performed By: #### M100.0300 #### [facility] [address] [place] [address] EMERGENCY REPORT Observed: 01/09/2018 Status: F Source: [facility] 7:13 PM [facility] REPOSITORY [facility] EMERGENCY ROOM REPORT NAME ACCOUNT SEX AGE ADMIT DISCHARGE PT MED. RECORD# NUMBER DATE DATE TYPE DAHLIA MARINO [id number] F 47 12/28/17 12/28/17 3 R [id number] ROOM: ER DATE OF : 1970 DICTATING [...] the coronary arteries by Dr. Haque in [place]. She states that she has had an [...] sinus mechanism without an evidence of acute CT. Rate was 93 and this was done [...] Mor Douglass DO 12/28/17 06:44 JOB #: [id number] Transcribed By: sp 12/29/17 05:54 Electronically signed by: E-SIGN MOR RAFAT ARSHAD 01/09/18 19:10 Page 2 of 2 NED DAHLIA R Emergency Room Report CBC Collected: 12/28/2017 Status: F Source: [facility] 4:10 AM [facility] REPOSITORY TYPE CODE TESTS RESULT OUT [...] x10EE3/U L Neut # High 10.70 LAB [place] #(LOINC) 0.20 - 1.00 x10EE3/U L [place] # 0.50 LAB EO #(LOINC) 0.00 - 0.50 x10EE3/U L EO # 0.10 LAB Baso #(LOINC) 0.00 - 0.10 x10EE3/U L Baso # 0.00 LAB MANUAL DIFF(LOINC) MANUAL DIFF N/A LAB MORPHOLOGY(LOINC ) MORPHOLOGY N/A Result Comment: {CD] Performed By: #### [id number] #### [facility],[address] [place] [address] CMP WITH EGFR Collected: 12/28/2017 Status: F Source: [facility] 4:10 AM [facility] REPOSITORY TYPE CODE TESTS RESULT OUT [...] OF AGE AND OLDER. Performed By: #### [id number] #### [place] [address] LIPASE Collected: 12/28/2017 Status: F Source: [facility] 4:10 [facility][1] REPOSITORY TYPE CODE TESTS RESULT OUT OF REFERENCE UNITS RANGE LAB LIPASE(LOIN 18.0 - 51.0 U/L C) LIPASE 25.0 Performed By: #### [id number] #### [place] [address] TROPONIN Collected: 12/28/2017 Status: F Source: [facility] 4:10 [facility][1] REPOSITORY TYPE CODE TESTS RESULT OUT OF [...] such as heterophile antibodies). Performed By: #### [id number] #### [place] [id number] ALLERGIES ALLERGIES DATE TYPE / NAME / CODE REACTION SEVERITY SOURCE CODE 08/29/2018 Drug doxycycline/[id number] Other Unknown [place] Allergy/41 748(RXNORM) [facility] [id number]([facility]) Repository 08/29/2018 Drug erythromycin Hives Unknown [place] Allergy/41 base/[id number](RXN Community 5341026(SN ORM) [facility]) Repository 08/29/2018 Drug metronidazole/F0060 Other Unknown [place] Allergy/41 69721(RXNORM) [facility] [id number]([facility]) Repository 07/01/2018 DRUG DOXYCYCLINE SHORTNESS OF [place] INGREDI/41 Clinic Other 1193684([facility]) Repository 07/01/2018 DRUG METRONIDAZOLE INTOLERANCE [place] INGREDI/41 Clinic Other 9564380([facility]) Repository 07/01/2018 DRUG AZITHROMYCIN SHORTNESS OF [place] INGREDI/41 Clinic Other 8531878([facility]ME [facility]) Repository NG/6650421 DOXYCYCLINE [facility] 06([facility]) Repository NG/7943497 METRONIDAZOLE [facility] 06([facility]) Repository NG/4422324 AZITHROMYCIN [facility] 06([facility]) Repository Drug DOXYCYCLINE/6751806 Moderate [place] Allergy/41 0(RXNORM) ([facility] 3827946(SN Modifier) [facility]) (Qualifier Repository Value) Drug FLAGYL/01383256(RXN Moderate [place] Allergy/41 ORM) ([facility] 9176475(SN Modifier) [facility]) (Qualifier Repository Value) Drug ERYTHROMYCIN/904732 Moderate [place] Allergy/41 26(RXNORM) ([facility] 5675908(SN Modifier) [facility]) (Qualifier Repository Value) ENCOUNTERS ENCOUNTERS ADMIT/DISCHARGE ACCOUNT NUMBER ADMITTING ENCOUNTER LOCATION SOURCE CLASS 09/06/2018 [id number] [facility] ding:MEDOUTP Repository 09/05/2018 [id number] Ambulatory [facility] ding:MEDOUTP Repository 09/05/2018 [id number] [facility] Repository 09/04/2018/09/04/[id number] ding:MEDOUTP Repository 09/03/2018/09/03/[id number] ding:MEDOUTP Repository 09/02/2018 [id number] [facility] Repository 09/01/2018 [id number] Ambulatory [place] [facility] ding:MED[facility]P Repository 09/01/2018 [id number] [facility] [place] [address] ERRoom: System 6B3NPDFwm: Repository [id number] 09/01/2018 [id number] Ambulatory [facility] Repository 08/31/2018 [id number] Ambulatory [place] [facility] ding:MEDOUTP Repository 08/30/2018 [id number] Ambulatory [place] [facility] ding:MEDOUTP Repository 08/30/2018 [id number] Ambulatory [facility] Repository 08/29/2018 [id number] Ambulatory [place] [facility] ding:MEDOUTP Repository 08/28/2018/08/28/19 [id number] Ambulatory [place] [facility] ding:MEDOUTP Repository 08/27/2018/08/27/19 [id number] Ambulatory [place] ding:MEDOUTP Repository 08/26/2018 [id number] Ambulatory [place] [facility] ding:MEDOUTP Repository 08/25/2018 [id number] Ambulatory [place] [facility] [facility] ding:MEDOUTP Repository 08/25/2018 [id number] Ambulatory [facility] Repository 08/24/2018 [id number] Ambulatory [place] [facility] ding:MEDOUTP Repository 08/23/2018/08/23/19 [id number] Ambulatory [place] [facility] ding:MEDOUTP Repository 08/22/2018 [id number] Ambulatory [place] [facility] ding:MEDOUTP Repository 08/21/2018/08/21/20 [id number] Ambulatory [place] 18 [facility] ding:MEDOUTP Repository 08/20/2018/08/20/20 [id number] Ambulatory [place] [facility] 18 [facility] ding:MEDOUTP Repository 08/19/2018 [id number] Ambulatory [place] [facility] ding:[facility] Repository 08/18/2018 [id number] Ambulatory [place] [facility] ding:MED[facility]P Repository 08/17/2018 [id number] Ambulatory [place] [facility] ding:MED[facility]P Repository 08/16/2018/08/16/20 [id number] Ambulatory [place] [facility] 18 [facility] ding:MED[facility] Repository 08/15/2018 [id number] Ambulatory [place] [facility] ding:MED[facility]P Repository 08/14/2018/08/14/20 [id number] Ambulatory [place] [facility] 18 [facility] ding:MED[facility]P Repository 08/13/2018/08/13/20 [id number] Ambulatory [place] [facility] 18 [facility] ding:MED[facility]P Repository 08/12/2018 [id number] Ambulatory [place] [facility] ding:MED[facility]P Repository 08/11/2018 [id number] Ambulatory [place] [facility] ding:MED[facility]P Repository 08/10/2018 [id number] Ambulatory [place] [facility] ding:MED[facility]P Repository 08/09/2018 [id number] Ambulatory [place] [facility] ding:MED[facility]P Repository 08/08/2018 [id number] Ambulatory [place] [facility] ding:MED[facility]P Repository 08/07/2018/08/07/20 [id number] Ambulatory [place] [facility] ding:MED[facility]P Repository 08/06/2018/08/06/20 [id number] Ambulatory [place] [facility] ding:MED[facility]P Repository 08/05/2018 [id number] Ambulatory [place] [facility] ding:MED[facility]P Repository 08/04/2018 [id number] Ambulatory [place] [facility] ding:MED[facility]P Repository 08/04/2018 [id number] Ambulatory [facility] Repository 08/04/2018 [id number] Ambulatory [facility] Repository 08/03/2018 [id number] [facility] [place] [facility] ding[facility]MED[facility]P Repository 08/02/2018 [id number] [facility] [place] [facility] ding:MED[facility]P Repository 08/01/2018 [id number] [facility] ding:MEDOUTP Repository 07/31/2018/07/31/20 [id number] Ambulatory [place] [address] [place] [address] [facility] ding:MEDOUTP Repository 07/30/2018/07/30/20 [id number] Ambulatory [place] [address] [place] [address] [facility] ding:MEDOUTP Repository Room: [facility] 07/29/2018 [id number] [facility] ding:MEDOUTP Repository 07/29/2018 [id number] Ambulatory [facility] [facility] Repository 07/28/2018 [id number] [facility] [place] [facility] ding[facility]MEDOUTP Repository 07/27/2018 [id number] [facility] [place] [facility] Hospital ding:MEDOUTP Repository 07/26/2018 [id number] [facility] Hospital ding:MEDOUTP Repository 07/26/2018 [id number] Ambulatory [facility] Repository 07/25/2018 [id number] [facility] Hospital ding:MEDOUTP Repository 07/24/2018/07/24/20 [id number] Ambulatory Samara Samara [address] [place] [address] [facility] Hospital ding:MEDOUTP Repository 07/23/2018/07/23/20 [id number] Ambulatory Samara Samara [address] [place] [address] [facility] Hospital ding:MEDOUTP Repository 07/22/2018 [id number] [facility] Hospital ding:MEDOUTP Repository 07/21/2018 [id number] [facility] Hospital ding:MEDOUTP Repository 07/17/2018 [id number] Inpatient [facility]in[facility] 4NRoom: System [id number]: Repository [id number] 07/02/2018 [id number] Inpatient [facility] Encounter 6WRoom: System [id number]: Repository [id number] 07/01/2018/07/02/20 [id number] TETYUK, Inpatient AK[facility] 18 PENELOPE Encounter [facility] MEDICAL Repository Candie nRoom: 7121Bed: 07/01/2018/07/02/20 [id number] TETY, Inpatient [place] 18 PENELOPE Encounter Clinic Other [facility] Repository 06/30/2018/07/01/20 [id number] CHRISTINA, Emergency Buildin[address] [place] [address] 18 DOROTEO D Room: ERBed: [facility] Repository 05/08/2018/05/08/20 [id number] Emergency UNIBuilding: [address] Repository 12/28/2017/12/29/19 [id number] RAFAT, Emergency Buildin[address] [place] [address] 18 MOR DO Room: ERBed: [facility] Repository PAYERS PAYERS ENCOUNTER GUARANTOR 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 SOURCE 09/06/2018 DAHLIA Hathaway Primary Insurance:SELF [facility]K [facility] [place] [place] Date:2018-08-30 Repository 08579Twl: () 09/05/2018 DAHLIA R Primary Insurance:SELF NOT [facility]IV[facility]UNK [facility] Number: [place] Date:2018-08-30 Repository 42806Obg: () 09/05/2018 Dahlia Primary Dahlia NedDOB[facility] Bark[facility]DOB: Insurance:MedicarePoli [id number] System cy Number: Effective [facility] Date: [place], [place] [address]Dwd: () 09/05/2018 Secondary Dahlia BarkfrancisDOB: [facility] Insurance:MedicarePoli [id number] System cy Number: Effective Repository Date: 09/05/2018 Tertiary Dahlia BarkesDOB: [facility] Insurance:Self [id number] System PayPolicy Number: Repository Effective Date: 09/04/2018 DAHLIA R Primary Insurance:SELF NOT GIVENUNK [place] [id number] PAY [facility] Number: [place] Date:2018-08-30 Repository 800[address]Ezb: (HP) 09/03/2018 DAHLIA R Primary Insurance:SELF NOT GIVENUNK [place] [id number] PAY [facility] Number: [place]:2018-08-30 Repository 55616Ttf: (HP) 09/02/2018 DAHLIA R Primary Insurance:SELF NOT GIVENUNK [place] [id number] PAY [facility] Number: [place]:2018-08-30 Repository 13410Rlb: (HP) 09/01/2018 DAHLIA R Primary Insurance:SELF NOT GIVENUNK [place] [id number] PAY [facility] Number: [place] Date:2018-08-30 Repository 680[address]Utl: (HP) 09/01/2018 Dahlia Primary Dahlia BarkesDOB: [facility] BarkesDOB: Insurance:MedicarePoli [id number] System cy Number: Effective [facility] Date: [place], [place] [address]Msc: () 09/01/2018 Secondary Dahlia BarkesDOB: [facility] Insurance:Self [id number] System PayPolicy Number: Repository Effective Date: 09/01/2018 Dahlia Primary Dahlia BarkesDOB: [facility] BarkesDOB: Insurance:MedicarePoli [id number] System cy Number: Effective Repository [place] Date: [place], [place] [address]Nvj: (HP) 09/01/2018 Secondary Dahlia BarkesDOB: [facility] Insurance:Self [id number] System PayPolicy Number: Repository Effective Date: 08/31/2018 DAHLIA R Primary Insurance:SELF NOT GIVENUNK [place] [id number] PAY [facility] Number: Effective [facility] Date:2018-08-30 Repository 535[address]Gtt: (HP) 08/30/2018 DAHLIA R Primary Insurance:SELF NOT GIVENUNK [place] [id number] PAY [facility] Number: Effective [facility] Date:2018-08-24 Repository 29[address]Pul: (HP) 08/30/2018 Dahlia Primary Dahlia MarinoDOB: [facility] BarkesDOB: Insurance:MedicarePoli [id number] System cy Number: Effective [facility] Date: [facility] [place] [address]Spc: (HP) 08/30/2018 Secondary Dahlia NancieB: [facility] Insurance:Self [id number] System PayPolicy Number: Repository Effective Date: 08/29/2018 DAHLIA R Primary Insurance:SELF NOT GIVENUNK Sam[place] [id number] PAY [facility] Number: Effective [facility] Date:2018-08-24 Repository [address]34[address]Ddu: (HP) 08/28/2018 DAHLIA R Primary Insurance:SELF NOT GIVENUNK [place] [id number] PAY [facility] Number: Effective [facility] Date:2018-08-24 Repository 62194Zdb: (HP) 08/27/2018 DAHLIA R Primary Insurance:SELF NOT GIVENUNK [place] [id number] PAY [facility] Number: Effective [facility] Date:2018-08-24 Repository 23664Zrz: (HP) 08/26/2018 DAHLIA R Primary Insurance:SELF NOT GIVENUNK Sam[place] [id number] PAY [facility] Number: Effective [facility] Date:2018-08-24 Repository 56393Ptc: (HP) 08/25/2018 DAHLIA R Primary Insurance:SELF NOT GIVENUNK Samara [id number] PAY [facility] Number: Effective [facility] Date:2018-08-24 Repository 03895Lib: (HP) 08/25/2018 Dahlia Primary Dahlia MarinoB: [facility] BarkfrancisDOB: Insurance:MedicarePoli [id number] System cy Number: Effective [facility] Date: [place], [place] [address]Afg: (HP) 08/25/2018 Secondary Dahlia MarinoB: [facility] Insurance:Self [id number] System PayPolicy Number: Repository Effective Date: 08/24/2018 DAHLIA R Primary Insurance:SELF NOT GIVENUNK Sam[place] [id number] PAY [facility] Number: Effective [facility] Date:2018-08-22 Repository 21573Iwa: (HP) 08/23/2018 DAHLIA R Primary Insurance:SELF NOT GIVENUNK [place] [id number] PAY [facility] Number: Effective [facility] Date:2018-08-09 Repository 885[address]Sjb: (HP) 08/22/2018 DAHLIA R Primary Insurance:SELF NOT GIVENUNK Sam[place] [id number] PAY [facility] Number: Effective [facility] Date:2018-08-22 Repository 57981Axf: (HP) 08/21/2018 DAHLIA R Primary Insurance:SELF NOT GIVENUNK [place] [id number] PAY [facility] Number: Effective [facility] Date:2018-08-09 Repository 14006Ubx: (HP) 08/20/2018 DAHLIA R Primary Insurance:SELF NOT GIVENUNK [place] [id number] PAY [facility] Number: Effective [facility] Date:2018-08-09 Repository 61089Ycj: (HP) 08/19/2018 DAHLIA R Primary Insurance:SELF NOT GIVENUNK [place] [id number] PAY [facility] Number: Effective [facility] Date:2018-08-09 Repository 64576Wzg: (HP) 08/18/2018 DAHLIA R Primary DAHLIA R [place] [id number] Insurance:MEDICARE A BARKESDOB: [facility] Number: [id number] [place] [id number] Repository [address]Fxz: 330) Date:2018-08-09 [phone] (HP) 08/18/2018 Secondary NOT GIVENUNK [place] Insurance:SELF PAY [facility] Number: Effective Repository Date:2018-08-09 08/17/2018 DAHLIA R Primary DAHLIA R Samara [id number] Insurance:MEDICARE A BARKESDOB: [facility] Number: [id number] [place], [place] [id number] Repository [address]Ryt: (691) Date:2018-08-09 [phone] (HP) 08/17/2018 Secondary NOT GIVENUNK Samara Insurance:SELF PAY [facility] Number: Effective Repository Date:2018-08-09 08/16/2018 DAHLIA R Primary DAHLIA R [place] [id number] Insurance:MEDICARE A BARKESDOB: [facility] Number: [id number] [place], [place] [id number] Repository 16381Xqi: (330) Date:2018-08-09 [phone] (HP) 08/16/2018 Secondary NOT GIVENUNK [place] Insurance:SELF PAY [facility] Number: Effective Repository Date:2018-08-09 08/15/2018 DAHLIA R Primary Insurance:SELF NOT GIVENUNK [place] [id number] PAY [facility] Number: [place]-08-09 Repository 13364Mdo: (HP) 08/14/2018 DAHLIA R Primary Insurance:SELF NOT GIVENUNK [place] [id number] PAY [facility] Number: Effective [place]:2018-08-09 Repository 9[address]Bnu: (HP) 08/13/2018 DAHLIA R Primary Insurance:SELF NOT GIVENUNK [place] [id number] PAY [facility] Number: Effective [facility] Date:2018-08-09 Repository 97[address]Ldw: () 08/12/2018 DAHLIA R Primary Insurance:SELF NOT GIVENUNK [place] [id number] PAY [facility] Number: Effective [facility]:2018-08-09 Repository 44611Xqq: () 08/11/2018 DAHLIA R Primary Insurance:SELF NOT GIVENUNK [place] [id number] PAY [facility] Number: Effective [facility]:2018-08-09 Repository 56368Wrt: () 08/10/2018 DAHLIA R Primary Insurance:SELF NOT GIVENUNK [place] [id number] PAY [facility] Number: Effective [facility] Date:2018-07-26 Repository 55635Ipl: () 08/09/2018 DAHLIA R Primary Insurance:SELF NOT GIVENUNK [place] [id number] PAY [facility] Number: Effective [facility] Date:2018-07-26 Repository 36308Zxn: () 08/08/2018 DAHLIA R Primary Insurance:SELF NOT GIVENUNK [place] [id number] PAY [facility] Number: Effective [facility] Date:2018-07-26 Repository 52675Maq: () 08/07/2018 DAHLIA R Primary Insurance:SELF NOT GIVENUNK [place] [id number] PAY [facility] Number: Effective [facility] Date:2018-07-26 Repository 22848Dza: () 08/06/2018 DAHLIA R Primary Insurance:SELF NOT GIVENUNK [place] [id number] PAY [facility] Number: Effective [facility] Date:2018-07-26 Repository 75[address]Ojt: (HP) 08/05/2018 DAHLIA R Primary Insurance:SELF NOT GIVENUNK Sam[place] [id number] PAY [facility] Number: Effective [place] Date:2018-07-26 Repository 11121Ctg: (HP) 08/04/2018 DAHLIA R Primary Insurance:SELF NOT GIVENUNK [place] [id number] PAY [facility] Number: Effective [place]:2018-07-26 Repository 12491Owl: (HP) 08/04/2018 Dahlia Primary Dahlia BarkesDOB: [facility] BarkesDOB: Insurance:MedicarePoli [id number] System cy Number: Effective [facility] Date: [place], [place] [address]Ohn: () 08/04/2018 Secondary Dahlia BarkesDOB: [facility] Insurance:Self [id number] System PayPolicy Number: Repository Effective Date: 08/04/2018 Dahlia Primary Dahlia BarkesDOB: [facility] BarkesDOB: Insurance:MedicarePoli [id number] System cy Number: Effective [facility] Date: [place], [place] [address]Ggo: () 08/04/2018 Secondary Dahlia BarkesDOB: [facility] Insurance:Self [id number] System PayPolicy Number: Repository Effective Date: 08/03/2018 DAHLIA R Primary Insurance:SELF NOT GIVENUNK [place] [id number] PAY [facility] Number: Effective [facility] [place] Date:2018-07-26 Repository 31092Uae: (HP) 08/02/2018 DAHLIA R Primary Insurance:SELF NOT GIVENUNK [place] [id number] PAY [facility] Number: Effective Hospital [facility] [place] Date:2018-07-26 Repository 480[address]Kyc: () 08/01/2018 DAHLIA R Primary DAHLIA R Samara [id number] Insurance:MEDICARE A BARKESDOB: [facility] ONLYPolicy Number: [id number] Johns, [place] [id number] Repository [address]Boh: (330) Date:2018-07-26 [phone] (HP) 08/01/2018 Secondary NOT GIVENUNK [place] Insurance:SELF PAY [facility] Number: Effective Repository Date:2018-07-26 07/31/2018 DAHLIA Hathaway Primary DAHLIA Hathaway [place] [id number] Insurance:MEDICARE A BARKESDOB: [facility] ONLYPolicy Number: [id number] Johns, [place] [id number] Repository 94[address]Mqz: (330) Date:2018-07-26 [phone] (HP) 07/31/2018 Secondary NOT GIVENUNK [place] Insurance:SELF PAY [facility] Number: Effective Repository Date:2018-07-26 07/30/2018 DAHLIA Hathaway Primary DAHLIA Hathaway Samara [id number] Insurance:MEDICARE A BARKESDOB: [facility] Number: [id number] [place], [place] [id number] Repository [address]Ysf: (330) Date:2018-07-26 [phone] () 07/30/2018 Secondary NOT GIVENUNK [place] Insurance:SELF PAY [facility] Number: Effective Repository Date:2018-07-26 07/29/2018 DAHLIA Hathaway Primary DAHLIA Hathaway Samara [id number] Insurance:MEDICARE A BARKESDOB: [facility] Number: [id number] [place], [place] [id number] Repository 649[address]Wvd: (330) Date:2018-07-26 [phone] (HP) 07/29/2018 Secondary NOT GIVENUNK [place] Insurance:SELF PAY [facility] Number: Effective Repository Date:2018-07-26 07/29/2018 Dahlia Villagomez BarkesDOB: [facility] BarkesDOB: Insurance:MedicarePoli [id number] System cy Number: Effective Repository [place] Date: [place], [place] [address]Bul: (HP) 07/28/2018 DAHLIA R Primary DAHLIA R Samara [id number] Insurance:MEDICARE A BARKESDOB: [facility] ONLYPolicy Number: [id number] Johns, [place] [id number] Repository 16[address]Roe: (330) Date:2018-07-26 [phone] (HP) 07/28/2018 Secondary NOT GIVENUNK [place] Insurance:SELF PAY [facility] Number: Effective Repository Date:2018-07-26 07/27/2018 DAHLIA R Primary Insurance:SELF NOT GIVENUNK [place] [id number] [facility]Y [facility] Number: [place]:2018-07-26 Repository 846[address]Hgy: (HP) 07/26/2018 DAHLIA R Primary DAHLIA R Sam[place] [id number] Insurance:MEDICARE A BARKESDOB: [facility] Number: [id number] Johns, [place] [id number] Repository 7[address]Ahj: (330) Date:2018-07-26 [phone] (HP) 07/26/2018 Secondary NOT GIVENUNK Samara Insurance:SELF PAY [facility] Number: Effective Repository Date:2018-07-26 07/26/2018 Dahlia Primary Dahlia BarkesDOB: [facility] BarkesDOB: Insurance:MedicarePoli [id number] System cy Number: Effective [facility] Date: [place], [place] [address]Scr: (HP) 07/26/2018 Secondary Dahlia BarkesDOB: [facility] Insurance:Self [id number] System PayPolicy Number: Repository Effective Date: 07/25/2018 DAHLIA R Primary DAHLIA R [place] [id number] Insurance:MEDICARE A BARKESDOB: [facility] Number: [id number] [place], [place] [id number] Repository [address]Fno: (330) Date:2018-07-20 [phone] () 07/25/2018 Secondary NOT GIVENUNK Samara Insurance:SELF PAY [facility] Number: Effective Repository Date:2018-07-20 07/24/2018 DAHLIA R Primary DAHLIA R [place] [id number] Insurance:MEDICARE A BARKESDOB: [facility] Number: [id number] [place] [id number] Repository 10[address]Sev: (644) Date:2018-07-20 [phone] (HP) 07/24/2018 Secondary NOT GIVENUNK Samara Insurance:SELF PAY [facility] Number: Effective Repository Date:2018-07-20 07/23/2018 DAHLIA R Primary Insurance:SELF NOT GIVENUNK Sam[place] [id number] PAY [facility] Number: Effective [place]:2018-07-20 Repository 21844Ryf: (HP) 07/22/2018 DAHLIA R Primary Insurance:SELF NOT GIVENUNK Sam[place] [id number] PAY [facility] Number: Effective [place]:2018-07-20 Repository 51474Hsy: (HP) 07/21/2018 DAHLIA R Primary Insurance:SELF NOT GIVENUNK Sam[place] [id number] PAY [facility] Number: Effective [place]:2018-07-20 Repository 15439Jgf: (HP) 07/17/2018 Dahlia Primary Dahlia BarkesDOB: [facility] BarkesDOB: Insurance:MedicarePoli [id number] System cy Number: Effective Repository [place] Date: [place], [place] [address]Nix: (HP) 07/02/2018 [facility] Primary Dahlia BarkesDOB: [facility] BarkesDOB: Insurance:MedicarePoli [id number] System cy Number: Effective [facility] Date: [place], [place] [address]Jak: (HP) 07/02/2018 Secondary Dahlia BarkesDOB: [facility] Insurance:Self [id number] System PayPolicy Number: Repository Effective Date: 07/01/2018 DAHLIA R Primary [facility]HLIA R [facility]:MED[facility]ARE BARKESDOB: Health System APolicy Number: [id number] Repository [place] [id number] [place], [place] Date: [address]Lke: () 06/30/2018 DAHLIA R Primary DAHLIA R Kashiflucinda Bennettzeinab BARKESDOB: Insurance:MEDICARE BARKESDOB: [facility] [id number] [facility] Number: [place] Repository [place] [id number] [place] [id number]: Date:Plan Name: [id number] () 05/08/2018 DAHLIA R Primary DAHLIA R [facility] [id number] Insurance:MEDICARE BARKESUNK [facility] [place] [facility] Repository [place], [place] Number: [address]Ljg: (750) [id number] [phone] (HP) Date: 12/28/2017 DAHLIA R Primary DAHLIA R Kashiflucinda Bennettzeinab BARKDOB: Insurance:MEDICARE BARKESDOB: [facility] [id number] [place] [address] Number: [place] Repository [place], [place] [id number] [place] [id number]: Date:Plan Name: [id number] ()
== END ==
LOC: MEDOUTP 14:02
PROVIDERS: Referring Provider Internal Medicine Infectious Disease; Visit Provider Internal Medicine Infectious Disease
DX: K65.1 Peritoneal abscess (principal)
CPT/HCPCS: 96365; J7050; A4216

== ENCOUNTER 2018-08-06 14:00 | Outpatient (CLI) | payer SELFPAY ==
[2018-07-26 13:51] VITALS: BMI 24.3
[2018-08-05 14:13] VITALS: BMI 24.3
[2018-08-06 14:20] VITALS: BP 119/52; PULSE 65; RESP 16; TEMP 36.7; O2SAT 100
[2018-08-06] MEDS: 0.9% NaCl PICC Flush IV (15:07)
--- OUTSIDE RECORDS SUMMARY | 2018-11-09 11:04 | XMS RPT_ITS ---
:1970 Author Organization OHIP Support Name Relationship Address Phone NILDA MARINOT Unavailable [address] [place] [address] + [place] [address] BROWN, DINAH Unavailable Unavailable + D Unavailable Unavailable Unavailable BARKES, MARS Unavailable [address] [facility] + [place] [address] BROWN, DINAH Unavailable Unavailable + D Unavailable Unavailable Unavailable Barkes, Mars Unavailable Unavailable + Brown, Dinah Unavailable Unavailable + BARKES, MARS Unavailable [address] + [place] [address] BROWN, DINAH Unavailable Unavailable + D Unavailable Unavailable Unavailable BARKES, MARS Unavailable [address] + [place] [address] BROWN, DINAH Unavailable Unavailable + D Unavailable Unavailable Unavailable BARKES, MARS Unavailable [address] + [place] [address] BROWN, DINAH Unavailable Unavailable + D Unavailable Unavailable Unavailable BARKES, MARS Unavailable [address] + [place] [address] BROWN, DINAH Unavailable Unavailable + D Unavailable Unavailable Unavailable Barkes, Mars Unavailable Unavailable + Brown, Dinah Unavailable Unavailable + Barkes, Mars Unavailable Unavailable + Brown, Dinah Unavailable Unavailable + BARKES, MARS Unavailable [address] + [place] [address] BROWN, DINAH Unavailable Unavailable + D Unavailable Unavailable Unavailable BARKES, MARS Unavailable [address] [facility] [address] + [place] [address] BROWN, DINAH Unavailable Unavailable + D Unavailable Unavailable Unavailable Barkes, Mars Unavailable Unavailable + Brown, Dinah Unavailable Unavailable + BARKES, MARS Unavailable [address] + [place] [address] BROWN, DINAH Unavailable Unavailable + D Unavailable Unavailable Unavailable BARKES, MARS Unavailable [address] + [place] [address] BROWN, DINAH Unavailable Unavailable + D Unavailable Unavailable Unavailable BARKES, MARS Unavailable [address] + [place] [address] BROWN, DINAH Unavailable Unavailable + D Unavailable Unavailable Unavailable BARKES, MARS Unavailable [address] + [place] [address] BROWN, DINAH Unavailable Unavailable + D Unavailable Unavailable Unavailable BARKES, MARS Unavailable [address] + [place] [address] BROWN, DINAH Unavailable Unavailable + D Unavailable Unavailable Unavailable Barkes, Mars Unavailable Unavailable + Brown, Dinah Unavailable Unavailable + BARKES, MARS Unavailable [address] + [place] [address] BROWN, DINAH Unavailable Unavailable + D Unavailable Unavailable Unavailable BARKES, MARS Unavailable [address] + [place] [address] BROWN, DINAH Unavailable Unavailable + D Unavailable Unavailable Unavailable BARKES, MARS Unavailable [address] + [place] [address] BROWN, DINAH Unavailable Unavailable + D Unavailable Unavailable Unavailable BARKES, MARS Unavailable [address] + [place] [address] BROWN, DINAH Unavailable Unavailable + D Unavailable Unavailable Unavailable BARKES, MARS Unavailable [address] + [place] [address] BROWN, DINAH Unavailable Unavailable + D Unavailable Unavailable Unavailable BARKES, MARS Unavailable [address] + [place] [address] BROWN, DINAH Unavailable Unavailable + D Unavailable Unavailable Unavailable BARKES, MARS Unavailable [address] + [place] [address] BROWN, DINAH Unavailable Unavailable + D Unavailable Unavailable Unavailable BARKES, MARS Unavailable [address] [facility] [address] + [place] [address] BROWN, DINAH Unavailable Unavailable + D Unavailable Unavailable Unavailable BARKES, MARS Unavailable [address] + [place] [address] BROWN, DINAH Unavailable Unavailable + D Unavailable Unavailable Unavailable BARKES, MARS Unavailable [address] + [place] [address] BROWN, DINAH Unavailable Unavailable + D Unavailable Unavailable Unavailable BARKES, MARS Unavailable [address] + [place] [address] BROWN, DINAH Unavailable Unavailable + D Unavailable Unavailable Unavailable BARKES, MARS Unavailable [address] + [place] [address] BROWN, DINAH Unavailable Unavailable + D Unavailable Unavailable Unavailable BARKES, MARS Unavailable [address] + [place] [address] BROWN, DINAH Unavailable Unavailable + D Unavailable Unavailable Unavailable BARKES, MARS Unavailable [address] + [place] [address] BROWN, DINAH Unavailable Unavailable + D Unavailable Unavailable Unavailable BARKES, MARS Unavailable [address] + [place] [address] BROWN, DINAH Unavailable Unavailable + D Unavailable Unavailable Unavailable BARKES, MARS Unavailable [address] + [place] [address] BROWN, DINAH Unavailable Unavailable + D Unavailable Unavailable Unavailable BARKES, MARS Unavailable [address] + [place] [address] BROWN, DINAH Unavailable Unavailable + D Unavailable Unavailable Unavailable BARKES, MARS Unavailable [address] + [place] [address] BROWN, DINAH Unavailable Unavailable + D Unavailable Unavailable Unavailable BARKES, MARS Unavailable [address] + [place] [address] BROWN, DINAH Unavailable Unavailable + D Unavailable Unavailable Unavailable BARKES, MARS Unavailable [address] + [place] [address] BROWN, DINAH Unavailable Unavailable + D Unavailable Unavailable Unavailable BARKES, MARS Unavailable [address] + [place] [address] BROWN, DINAH Unavailable Unavailable + D Unavailable Unavailable Unavailable Barkes, Mars Unavailable Unavailable + Brown, Dinah Unavailable Unavailable + Barkes, Mars Unavailable Unavailable + Brown, Dinah Unavailable Unavailable + BARKES, MARS Unavailable [address] + [place] [address] BROWN, DINAH Unavailable Unavailable + D Unavailable Unavailable Unavailable BARKES, MARS Unavailable [address] + [place] [address] BROWN, DINAH Unavailable Unavailable + D Unavailable Unavailable Unavailable BARKES, MARS Unavailable [address] + [place] [address] BROWN, DINAH Unavailable Unavailable + D Unavailable Unavailable Unavailable BARKES, MARS Unavailable [address] + [place] [address] BROWN, DINAH Unavailable Unavailable + D Unavailable Unavailable Unavailable BARKES, MARS Unavailable [address] + [place] [address] BROWN, DINAH Unavailable Unavailable + D Unavailable Unavailable Unavailable BARKES, MARS Unavailable [address] + [place] [address] BROWN, DINAH Unavailable Unavailable + D Unavailable Unavailable Unavailable Barkes, Mars Unavailable Unavailable + Brown, Dinah Unavailable Unavailable + BARKES, MARS Unavailable [address] + [place] [address] BROWN, DINAH Unavailable Unavailable + D Unavailable Unavailable Unavailable BARKES, MARS Unavailable [address] + [place] [address] BROWN, DINAH Unavailable Unavailable + D Unavailable Unavailable Unavailable BARKES, MARS Unavailable [address] + [place] [address] BROWN, DINAH Unavailable Unavailable + D Unavailable Unavailable Unavailable Barkes, Mars Unavailable Unavailable + Brown, Dinah Unavailable Unavailable + BARKES, MARS Unavailable [address] + [place] [address] BROWN, DINAH Unavailable Unavailable + D Unavailable Unavailable Unavailable BARKES, MARS Unavailable [address] [place] [address] ST + [place] [address] BROWN, DINAH Unavailable Unavailable + D Unavailable [...] Unavailable Unavailable + BARKJENY, LANCE Unavailable [address] + [place], [place] [id number] BARKES, MARS Unavailable Unavailable Unavailable NOT GIVEN Unavailable Unavailable Unavailable BARKES, LANCE Unavailable [address] + [place], [place] [id number] BARKES, MARS Unavailable Unavailable Unavailable NOT GIVEN Unavailable Unavailable Unavailable Care Team Providers Name Role KATIA Ledbetter Consulting Unavailable MOR DOUGLASS DO Admitting Unavailable MOR DOUGLASS DO Attending Unavailable MOR DOUGLASS DO Primary Care Unavailable MARLO LANG MD Consulting Unavailable MARLO LANG MD Referring Unavailable PROVIDER, UNKNOWN Consulting Unavailable DOROTEO TABOR Admitting Unavailable DOROTEO TABOR Attending Unavailable MARLO LANG MD Referring Unavailable DOROTEO TABOR Primary Care Unavailable MARLO LANG MD Consulting Unavailable PROVIDER, UNKNOWN Consulting Unavailable Mandapat, Daya Attending Unavailable Mandapat, [...] Care Unavailable Mandapat, Daya Attending Unavailable Mandapat, Daay Referring Unavailable Primay Care Physicia, No Primary Care Unavailable Mandapat, Daya Attending Unavailable Mandapat, Daya Referring Unavailable Primay Care Physicia, No Primary Care Unavailable TETYUK, PENELOPE Admitting Unavailable TETYUK, PENELOPE [...] SOURCE 09/01/2018 Admitting Hypokalemia / Hashiguchi, Active [facility] Diagnosis E87.6(ICD-10) [facility] Repository 08/30/2018 Admitting 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, 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 I, Micheline System unspecified / Repository G90.50(ICD-10) 08/30/2018 Admitting Personal history of [place], Active [facility] Diagnosis nicotine dependence [facility]heline System / Z87.891(ICD-10) Repository 08/30/2018 Admitting Fibromyalgia / [place], Active [facility] Diagnosis M79.7(ICD-10) Micheline System Repository 08/30/2018 Admitting Hypothyroidism, [place], Active [facility] Diagnosis unspecified / [facility] System E03.9(ICD-10) Repository 08/30/2018 Admitting Presence of coronary [place], Active [facility] Diagnosis angioplasty implant Micheline System and [...] 08/04/2018 Admitting Other ascites / Hashiguchi, Active [facility] Diagnosis R18.8(ICD-10) [facility] Repository 08/04/2018 Admitting Abnormal findings on Hashiguchi, Active [facility] Diagnosis dx imaging of oth [facility] body structures / Repository R93.89(ICD-10) 08/04/2018 Admitting Abnormal findings on Hashiguchi, Active [facility] Diagnosis dx imaging of prt [facility] digestive tract / Repository R93.3(ICD-10) 08/04/2018 Admitting Candidiasis of vulva Hashiguchi, Active [facility] Diagnosis and vagina / [facility] B37.3(ICD-10) Repository 08/04/2018 Admitting Crohn's disease of Hashiguchi, Active [facility] Diagnosis both small and lg [facility] int w oth Repository complication / K50.818(ICD-10) 07/26/2018 Admitting Encntr for f/u exam Hashiguchi, Active [facility] Diagnosis aft trtmt for cond [facility] oth than malig Repository neoplm / Z09(ICD-10) 07/17/2018 Admitting Peritoneal abscess / Zaugg, Active [facility] Diagnosis K65.1(ICD-10) System Repository 07/17/2018 Admitting Urinary tract Zaugg, Active [facility] Diagnosis infection, site not System specified / Repository N39.0(ICD-10) 07/17/2018 Admitting Hypomagnesemia / Zaugg, Active [facility] Diagnosis E83.42(ICD-10) System Repository 07/17/2018 Admitting Cutaneous abscess of Zaugg, Active [facility] Diagnosis abdominal wall / System L02.211(ICD-10) Repository 07/17/2018 Admitting Sepsis, unspecified Zaugg, Active [facility] Diagnosis organism / System A41.9(ICD-10) Repository 07/17/2018 Admitting Crohn's disease of Zaugg, Active [facility] Diagnosis both small and large System intestine w abscess Repository / K50.814(ICD-10) 07/17/2018 Admitting Postprocedural Zaugg, Active [facility] Diagnosis hypothyroidism / System E89.0(ICD-10) Repository 07/17/2018 Admitting Adverse effect of Zaugg, Active [facility] Diagnosis unsp systemic System antibiotic, init Repository encntr / T36.95XA(ICD-10) 07/17/2018 Admitting detention (current) Zaugg, Active [facility] Diagnosis use of systemic System steroids / Repository Z79.52(ICD-10) 07/02/2018 Admitting Crohn's disease, Oscar, [facility] Diagnosis unspecified, with [facility] abscess / Repository K50.914(ICD-10) 07/02/2018 Admitting Unspecified severe Oscar, [employer] Diagnosis protein-calorie [facility] malnutrition / Repository E43(ICD-10) 07/02/2018 Admitting Athscl heart disease Oscar, [facility]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 Repository / I25.10(ICD-10) 07/02/2018 Admitting Body mass index Oscar, Active [facility] Diagnosis (BMI) 24.0-24.9, [facility] adult / Repository Z68.24(ICD-10) 07/02/2018 Admitting Abnormal weight loss Oscar, Active [facility] Diagnosis / R63.4(ICD-10) [facility] Repository 07/02/2018 Admitting Elevated white blood Oscar, [facility] [facility] Diagnosis cell count, [facility] System unspecified / Repository D72.829(ICD-10) 07/02/2018 Admitting Anemia, unspecified Oscar, Active [facility] Diagnosis / D64.9(ICD-10) [facility] Repository 07/01/2018 Active Unknown / CORI, Active [place] UNK(Unknown) [facility] Other [place] Repository 05/08/2018 Admitting Unknown / NA Active [facility] diagnosis UNK(Unknown) Hospital Repository 12/28/2017 Admitting Vomiting, OMLEY, 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 unspecified / [facility] R1110(ICD-10) Hospital Repository 12/28/2017 Principle Noninfective OMLEY, 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 gastroenteritis and [facility] colitis, unspecified Hospital / K529(ICD-10) Repository 12/28/2017 Secondary Crohn's disease, OMLEY, 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 unspecified, without [facility] complications / Hospital K5090(ICD-10) Repository 12/28/2017 Secondary Atherosclerotic OMLEY, 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 Repository angina pectoris / I2510(ICD-10) 12/28/2017 Secondary Presence of coronary OMLEY, 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 angioplasty implant [facility] and graft / Hospital Z955(ICD-10) Repository PROCEDURES PROCEDURES No Procedure Records FoundRESULTS RESULTS RF URETHROCYSTOGRAPHY Observed: 09/07/2018 Status: F Source: [facility] VOIDING 9:51 AM SYSTEM REPOSITORY Patient Name: DAHLIA MARINO Fluoroscopy Exam Date/Time 09/05/2018 10:14:33 EST Exam RF Urethrocystography Voiding Ordering Physician MD DEUCE, MICHELINE Gaspar Accession Number [id number] CTP4 Codes 41624 () Reason For Exam concern for rectovaginal [...] 09/06/2018 Status: F Source: SAMARA 2:00 PM [facility] REPOSITORY TYPE CODE TESTS RESULT OUT OF [...] Lymph 1.55 Performed By: #### L100.0100 #### [facility] [address] [place], [address] COMPREHENSIVE METABOLIC Collected: 09/06/2018 Status: F Source: [facility] 2:00 PM [facility] REPOSITORY TYPE CODE TESTS RESULT OUT OF [...] Normal 8 Performed By: #### L500.4050 #### [facility] [address] [place], [address] ED PROVIDER NOTE Observed: 09/01/2018 Status: F Source: [facility] 1:20 PM SYSTEM REPOSITORY This patient presented [...] W/DIFF, AUTOMATED Collected: 08/31/2018 Status: F Source: TAHOLAH 2:15 PM [facility] REPOSITORY TYPE CODE TESTS RESULT OUT OF [...] Lymph 2.02 Performed By: #### L100.0100 #### [facility] [address] [place], [place], [address] COMPREHENSIVE METABOLIC Collected: 08/31/2018 Status: F Source: [facility] 2:15 PM [facility] REPOSITORY TYPE CODE TESTS RESULT OUT OF [...] 8 GAP Performed By: #### L500.4050 #### [facility] [address] [place] [address]. [place], [address] Observed: 08/30/2018 Status: F Source: [facility] SURGICAL PATHOLOGY 8:22 AM SYSTEM REPOSITORY ON65-185 [facility] DEPARTMENT OF [facility] PATHOLOGY AND LABORATORY MEDICINE [address] [place] [address] FINAL SURGICAL PATHOLOGY REPORT NAME: DAHLIA MARINO : 1970 48 Y F BILLING NO.: [id number] LOCATION: 1XEO PROCEDURE 08/30/2018 DATE: SURGEON: MICHELINE [...] characteristics determined by the clinical laboratories of [facility]. They have not been cleared by the [...] negativity on decalcified specimens. Professional Performing Location: [address] [address]. DEPARTMENT OF PATHOLOGY AND LABORATORY MEDICINE [place], [place] [address] RF SMALL BOWEL W/ Observed: 08/25/2018 Status: F Source: [facility] SERIAL FILMS 2:30 PM SYSTEM REPOSITORY Patient Name: DAHLIA MARINO Fluoroscopy Exam Date/Time 08/25/2018 13:09:43 EST Exam RF Small Bowel w/ Serial Films Ordering Physician MD DEUCE, MICHELINE Gaspar Accession Number [id number] CTP4 Codes 89264 () Reason For Exam Crohn's Disease, rt. [...] 08/24/2018 Status: F Source: SAMARA 2:23 PM [facility] REPOSITORY TYPE CODE TESTS [...] Lymph 2.16 Performed By: #### L100.0100 #### [facility] [address] [place], [address] COMPREHENSIVE METABOLIC Collected: 08/24/2018 Status: F Source: [facility] 2:23 PM [facility] REPOSITORY TYPE CODE TESTS RESULT OUT OF [...] GAP 10 Performed By: #### L500.4050 #### [facility] [address] [place], [address] CBC W/DIFF, AUTOMATED Collected: 08/17/2018 Status: F [...] Lymph 1.59 Performed By: #### L100.0100 #### [facility] [address] [place], [place], [address] COMPREHENSIVE METABOLIC Collected: 08/17/2018 Status: F Source: SAMARA [place] 1:44 PM [facility] REPOSITORY TYPE CODE TESTS RESULT OUT OF [...] GAP 8 Performed By: #### L500.4050 #### [facility] [address] [place], [address] CBC W/DIFF, AUTOMATED Collected: 08/10/2018 Status: F Source: TAHOLAH 2:22 PM [facility] REPOSITORY TYPE CODE TESTS RESULT OUT OF [...] Lymph 2.17 Performed By: #### L100.0100 #### [facility] [address] [place], [address] COMPREHENSIVE METABOLIC Collected: 08/10/2018 Status: F Source: [facility] 2:22 PM [facility] REPOSITORY TYPE CODE TESTS RESULT OUT OF [...] Normal 8 Performed By: #### L500.4050 #### [facility] [address] [place], [address] CT ABDOMEN/PELVIS W/ Observed: 08/04/2018 Status: F Source: [facility] CONTRAST 1:01 PM SYSTEM REPOSITORY Patient Name: DAHLIA MARINO CT Exam Date/Time 08/04/2018 12:09:[address] Abdomen/Pelvis w/ IV Contrast (IV Onl Ordering Physician MD MARCELA, JESSE Accession Number [id number] CPT4 Codes 46293 (CT Abdomen/Pelvis w/ IV Contrast (IV Onl), Q9967 (CT ISOVUE 370MG/[id number]) Reason For Exam RLQ phlegmon vs abscess [...] METABOLIC PANEL Collected: 08/04/2018 Status: F Source: [facility] 9:09 AM SYSTEM REPOSITORY TYPE CODE TESTS [...] Calcium 8.8 Performed By: #### BMP3 #### [facility] [address] [address] CBC W/DIFF, AUTOMATED Collected: 08/03/2018 Status: F Source: SAMARA 2:13 PM [facility] REPOSITORY TYPE CODE TESTS RESULT OUT OF [...] Lymph 1.92 Performed By: #### L100.0100 #### [facility] [address] [place], [place], [address] COMPREHENSIVE METABOLIC Collected: 08/03/2018 Status: F Source: [facility] 2:13 PM [facility] REPOSITORY TYPE CODE TESTS RESULT OUT OF [...] 9 GAP Performed By: #### L500.4050 #### [facility] [address] [place] [address]. [place], [place], [id number] CBC W/DIFF, AUTOMATED Collected: 07/27/2018 Status: F Source: TAHOLAH 2:06 PM [facility] REPOSITORY TYPE CODE TESTS RESULT OUT OF [...] Lymph 1.89 Performed By: #### L100.0100 #### [facility] [address] [place], [place], [address] COMPREHENSIVE METABOLIC Collected: 07/27/2018 Status: F Source: [facility] 2:06 PM [facility] REPOSITORY TYPE CODE TESTS RESULT OUT OF [...] Normal 7 Performed By: #### L500.4050 #### [facility] [address] [place], [address] CBC W/DIFF, AUTOMATED Collected: 07/21/2018 Status: F Source: T[place] 2:35 PM [facility] REPOSITORY TYPE CODE TESTS RESULT OUT OF [...] Lymph 1.50 Performed By: #### L100.0100 #### [facility] [address] [place], [address] COMPREHENSIVE METABOLIC Collected: 07/21/2018 Status: F Source: [facility] 2:35 PM [facility] REPOSITORY TYPE CODE TESTS RESULT OUT OF [...] GAP 4 Performed By: #### L500.4050 #### [facility] [address] [place] [address]. [place], [place], [address] CR CHEST PORTABLE Observed: 07/20/2018 Status: F Source: [facility] 6:44 PM SYSTEM REPOSITORY Patient Name: DAHLIA MARINO Diagnostic Radiology Exam Date/Time 07/20/2018 16:55:27 EST Exam CR Chest Portable Ordering Physician DO PINON KATHRYN C Accession Number [id number] CPT4 Codes 95558 () Reason For Exam Line placement Report [...] DISCHARGE SUMMARY Observed: 07/20/2018 Status: F Source: [facility] 1:18 PM SYSTEM REPOSITORY Attestation signed by [...] (bowel resections x8), hypothyroidism, FM. Presented to [facility] ED on 07/17/18 with worsening abdominal pain. Patient was admitted to [facility] ED in 07/10, discharged 07/04/18. During that [...] follow up with her GI doctor in [place], urged her to set up a follow up appointment soon after discharge. ID placed infusion orders for center in [place] with an appointment to start tomorrow. PROCEDURES: PICC placement CONSULTANTS: Interventional Radiology General Surgery Gastrointestinal Infectious Disease DISCHARGE MEDICATIONS: Dahlia Marino Home Medication Instructions MARLYN:[id number] Printed on:07/20/18 0851 Medication Information calcium-vitamin D (OSCAL) 250-125 MG-UNIT [...] Complexity: follow up within 7-14 calendar days (57494) [x] Severe Complexity: follow up within 7 calendar days (61326) FOLLOW UP TESTING, PENDING RESULTS OR REFERRALS AT TRANSITIONAL CARE VISIT: CT of abdomen after 2-3 weeks of abx [x] Yes [] No RECOMMENDED NEXT STEPS: Please follow up with Dr. Langston at the [facility] at 10am on 07/26/2018. Please follow up with your GI doctor in [place]. Please follow up with Dr. Micheline Tripathi of general surgery at [phone] as soon as possible for a follow up appointment in two weeks . DISPOSITION: Home Follow up with Dr. Langston at the [facility] at 10am on 07/26/2018. INSTRUCTIONS TO MA/SW: [...] frame. TIFERON Collected: 07/20/2018 Status: F Source: [facility] 11:02 AM SYSTEM REPOSITORY TYPE CODE TESTS RESULT OUT OF REFERENCE UNITS RANGE LAB QTF Negative NA Quantiferon Negative Performed By: #### QTF #### [facility] [address] [id number] HEMOGRAM Collected: 07/20/2018 Status: F Source: [facility] 4:25 AM SYSTEM REPOSITORY TYPE CODE TESTS [...] By: #### HEMOG, BMP3M, MG3, PHOS3 #### [facility] [address] [place] [phone] BASIC METABOLIC PANEL Collected: 07/20/2018 Status: F Source: [facility] 4:25 AM SYSTEM REPOSITORY TYPE CODE TESTS [...] By: #### HEMOG, BMP3M, MG3, PHOS3 #### [facility] [address] [place] [address] MAGNESIUM Collected: 07/20/2018 Status: F Source: [facility] 4:25 AM SYSTEM REPOSITORY TYPE CODE TESTS RESULT OUT OF REFERENCE UNITS RANGE LAB MG3 1.6-2.3 mg/dL Low Magnesium 1.5 Performed By: #### HEMOG, BMP3M, MG3, PHOS3 #### [facility] [address] PHOSPHORUS Collected: 07/20/2018 Status: F Source: [facility] 4:25 AM SYSTEM REPOSITORY TYPE CODE TESTS RESULT OUT OF RANGE REFERENCE UNITS LAB PHOS3 2.5-4.5 mg/dL Normal Phosphorus 4.3 Performed By: #### HEMOG, BMP3M, MG3, PHOS3 #### [facility] [address] [place] [address] Observed: 07/19/2018 Status: F Source: [facility] CLOSTRIDIUM DIFFICILE 10:53 PM SYSTEM REPOSITORY PCR [...] be submitted. Performed By: #### CDPCR #### [facility] [address] [address] HEMOGRAM Collected: 07/19/2018 Status: F Source: [facility] 5:29 AM SYSTEM REPOSITORY TYPE CODE TESTS [...] By: #### HEMOG, BMP3M, MG3, PHOS3 #### [facility] [address] [place] [id number] BASIC METABOLIC PANEL Collected: 07/19/2018 Status: F Source: [facility] 5:29 AM SYSTEM REPOSITORY TYPE CODE TESTS [...] By: #### HEMOG, BMP3M, MG3, PHOS3 #### [facility] [address] [place] [phone] MAGNESIUM Collected: 07/19/2018 Status: F Source: Prognomix 5:29 AM SYSTEM REPOSITORY TYPE CODE TESTS RESULT OUT OF RANGE REFERENCE UNITS LAB MG3 1.6-2.3 mg/dL Normal Magnesium 1.6 Performed By: #### HEMOG, BMP3M, MG3, PHOS3 #### [employer] [address] [address] PHOSPHORUS Collected: 07/19/2018 Status: F Source: Prognomix 5:29 AM SYSTEM REPOSITORY TYPE CODE TESTS RESULT OUT OF RANGE REFERENCE UNITS LAB PHOS3 2.5-4.5 mg/dL Normal Phosphorus 3.4 Performed By: #### HEMOG, BMP3M, MG3, PHOS3 #### [facility] [employer] [address] [address] HEMOGRAM Collected: 07/18/2018 Status: F Source: Prognomix 5:02 AM SYSTEM REPOSITORY TYPE CODE TESTS [...] HEMOG, BMP3M, MG3, PHOS3 #### [facility] [employer] [address] [address] BASIC METABOLIC PANEL Collected: 07/18/2018 Status: F Source: [facility]gnomix 5:02 AM SYSTEM REPOSITORY TYPE CODE TESTS [...] By: #### HEMOG, BMP3M, MG3, PHOS3 #### [facility] [address] [place] [address] MAGNESIUM Collected: 07/18/2018 Status: F Source: Prognomix 5:02 AM SYSTEM REPOSITORY TYPE CODE TESTS RESULT OUT OF RANGE REFERENCE UNITS LAB MG3 1.6-2.3 mg/dL Normal Magnesium 1.6 Performed By: #### HEMOG, BMP3M, MG3, PHOS3 #### [facility] [address] [place] [phone] PHOSPHORUS Collected: 07/18/2018 Status: F Source: Prognomix 5:02 AM SYSTEM REPOSITORY TYPE CODE TESTS RESULT OUT OF RANGE REFERENCE UNITS LAB PHOS3 2.5-4.5 mg/dL Normal Phosphorus 3.5 Performed By: #### HEMOG, BMP3M, MG3, PHOS3 #### [facility] [address] [place] [address] BASIC METABOLIC PANEL Collected: 07/17/2018 Status: F Source: Prognomix 2:00 PM SYSTEM REPOSITORY TYPE CODE TESTS [...] Calcium 7.5 Performed By: #### BMP3 #### [facility] [address] [place], [place] LACTIC ACID Collected: 07/17/2018 Status: F Source: [facility] 11:25 AM SYSTEM REPOSITORY TYPE CODE TESTS RESULT OUT OF REFERENCE UNITS RANGE LAB LACT3 0.7-2.0 mmol/L Low Lactic Acid < 0.5 Performed By: #### LACT3 #### [facility] [address] [place], [place] Observed: 07/17/2018 Status: F Source: [facility] CULTURE URINE 8:28 AM SYSTEM REPOSITORY Order Comment: Specimen Source Comment:Urine, clean catch CULTURE URINE --> Status: F Normal urogenital elham present. Performed By: #### C/UR #### [facility]. [place], [place] CT ABDOMEN/PELVIS W/ Observed: 07/17/2018 Status: F Source: [facility]gnomix CONTRAST 5:09 AM SYSTEM REPOSITORY Patient Name: DAHLIA MARINO CT Exam Date/Time 07/17/2018 05:32:[address] Abdomen/Pelvis w/ IV Contrast (IV Onl Ordering Physician MD JAMIR, IRENE Gray Accession Number [id number] CPT4 Codes 90384 (CT Abdomen/Pelvis w/ IV Contrast (IV Onl), Q9967 (CT ISOVUE 370MG/[id number]) Reason For Exam recent abscess due to [...] 07/17/2018 5:09 Observed: 07/17/2018 Status: F Source: [facility] CULTURE BLOOD 4:57 AM SYSTEM REPOSITORY Order Comment: Specimen Source Comment:Blood CULTURE BLOOD --> Status: F No growth at 5 days. Performed By: #### C/BLD #### [facility] [address] [place] [phone] Observed: 07/17/2018 Status: F Source: [facility] CULTURE BLOOD (TWO) 4:01 AM SYSTEM REPOSITORY Order Comment: Specimen Source Comment:Blood CULTURE BLOOD (Two) --> Status: F No growth at 5 days. Performed By: #### C/BLT #### [facility] [address] [place] [phone] HEMOGRAM W/ AUTODIFF Collected: 07/17/2018 Status: F Source: [facility]gnomix 4:00 AM SYSTEM REPOSITORY TYPE CODE TESTS [...] LIPA4, LFT3, BMP3, CRP2, ESR, PCAL #### [facility] [address] [place] [phone] LACTIC ACID Collected: 07/17/2018 Status: F Source: [facility] 4:00 AM SYSTEM REPOSITORY TYPE CODE TESTS RESULT OUT OF RANGE REFERENCE UNITS LAB LACT3 0.7-2.0 mmol/L Normal Lactic Acid 1.2 Performed By: #### HEMDF, LACT3, LIPA4, LFT3, BMP3, CRP2, ESR, PCAL #### [facility] [address] [place] [phone] LIPASE Collected: 07/17/2018 Status: F Source: [facility] 4:00 AM SYSTEM REPOSITORY TYPE CODE TESTS RESULT OUT OF RANGE REFERENCE UNITS LAB LIPA4 23-300 U/L Normal Lipase 38 Performed By: #### HEMDF, LACT3, LIPA4, LFT3, BMP3, CRP2, ESR, PCAL #### [facility] [address] [place] [phone] HEPATIC FUNCTION Collected: 07/17/2018 Status: F Source: [facility] 4:00 AM SYSTEM REPOSITORY TYPE CODE TESTS [...] LIPA4, LFT3, BMP3, CRP2, ESR, PCAL #### [facility] [address] [place] [phone] BASIC METABOLIC PANEL Collected: 07/17/2018 Status: F Source: [facility] 4:00 AM SYSTEM REPOSITORY TYPE CODE TESTS [...] LIPA4, LFT3, BMP3, CRP2, ESR, PCAL #### [facility] [address] [place] [address] C-REACTIVE PROTEIN Collected: 07/17/2018 Status: F Source: [facility]om[facility] 4:00 AM SYSTEM REPOSITORY TYPE CODE TESTS RESULT OUT OF REFERENCE UNITS RANGE LAB 2CRP 0.0-6.0 mg/L High C-Reactive 11.6 Protein Result Comment: . Performed By: #### HEMDF, LACT3, LIPA4, LFT3, BMP3, CRP2, ESR, PCAL #### [facility] [address] [place] [phone] SED RATE Collected: 07/17/2018 Status: F Source: [facility] 4:00 AM SYSTEM REPOSITORY TYPE CODE TESTS RESULT OUT OF RANGE REFERENCE UNITS LAB ESR 0-20 mm/h High Sed Rate 27 Performed By: #### HEMDF, LACT3, LIPA4, LFT3, BMP3, CRP2, ESR, PCAL #### [facility] [address] [place] [phone] PROCALCITONIN Collected: 07/17/2018 Status: F Source: [facility] 4:00 AM SYSTEM REPOSITORY TYPE CODE TESTS RESULT OUT OF REFERENCE UNITS RANGE LAB PRO <0.10 ng/mL Procalcitonin Normal < 0.10 LAB INT3 NA Interpretation See Below Result Comment: PCT <0.50 = Low risk of severe sepsis and/or septic shock. PCT >2.00 = High risk of severe sepsis and/or septic shock. Performed By: #### HEMDF, LACT3, LIPA4, LFT3, BMP3, CRP2, ESR, PCAL #### [facility] [address] [place] [phone] ED PROVIDER NOTE Observed: 07/17/2018 Status: F Source: [facility] 2:30 AM SYSTEM REPOSITORY [facility] EMERGENCY DEPT eMERGENCY dEPARTMENT eNCOUnter Pt Name: Dahlia Marino Birthdate 1970 Date of evaluation: 07/17/2018 Provider: Irene Marlow MD Chief Complaint: No chief complaint on file. [place]: Dahlia Marino is a 48 y.o. female [...] antibiotics in the hospital. She is from [place] but was referred here because the hospital [...] by myself in the absence of a planning associate) none Chart review shows recent radiographs: Ct Abdomen Pelvis W Contrast Result Date: 07/02/2018 Patient Name: DAHLIA MARINO ---CT--- Exam Date/Time 07/02/2018 07:47:[address] Abdomen/Pelvis w/ IV Contrast (IV Onl Ordering Physician MD IVIS, MPH, MICHELINE Accession Number [id number] CPT4 Codes 30802 (CT Abdomen/Pelvis w/ IV Contrast (IV Onl), Q9967 (CT ISOVUE 370MG/ML&[id number]&ML&1) Reason For Exam Crohns flare, known abscess [...] PROVIDER NOTE Observed: 07/17/2018 Status: F Source: Pro[facility] 2:30 AM SYSTEM REPOSITORY Emergency Department Encounter Location: [facility] EMERGENCY DEPT Patient: Dahlia Marino : 1970 [...] # 1.4 1.0 - 4.3 10*3/uL Absolute Gosper # 1.2 (H) 0.0 - 0.8 10*3/uL [...] eGFR >60.0 >60 mL/min EGFR IF NonAfrican Pakistani >60.0 >60 mL/min Calcium 8.1 (L) 8.4 [...] Physician MD JAMIR, IRENE Gray Accession Number [id number] CPT4 Codes 50592 (CT Abdomen/Pelvis w/ IV Contrast (IV Onl), Q9967 (CT ISOVUE 370MG/ML&[id number]&ML&1) Reason For Exam recent abscess due to [...] are mis-transcribed.) Bon Mercedes MD Acute Care [facility] Bon Mercedes MD 07/17/18 0551 DISCHARGE SUMMARY Observed: 07/04/2018 Status: F Source: [facility] 11:29 AM SYSTEM REPOSITORY Attestation signed by [...] x8, on gregory), hypothyroidism, fibromyalgia presented to [facility] w/ progressive 6 week hx of abdominal pain. She was first seen at [facility] in [place], [place] 6wks prior to admission for abdominal [...] in the urine. CT abdomen done at [facility] (07/01/18) which showed a complex inflammatory collection/mass in anterior RLQ abscess. Patient was then transferred to [facility] the same day for further management and a second opinion. Patient and then requested transfer to [facility] as they have had family treated here [...] 1 week. ? PROCEDURES: NA CONSULTANTS: GI- Olievr Quigley Gen Surg- Micheline Tripathi DISCHARGE MEDICATIONS: Dahlia Marino Home Medication Instructions MARLYN:[id number] Printed on:07/05/18 1008 Medication Information adalimumab (HUMIRA) [...] Complexity: follow up within 7-14 calendar days (08310) [] Severe Complexity: follow up within 7 calendar days (52240) FOLLOW UP TESTING, PENDING RESULTS OR REFERRALS [...] W/ AUTODIFF Collected: 07/04/2018 Status: F Source: [facility] 5:08 AM SYSTEM REPOSITORY TYPE CODE TESTS [...] #### HEMDF, BMP3M, MG3, PHOS3, LFT3 #### [facility] [address] [place] [address] BASIC METABOLIC PANEL Collected: 07/04/2018 Status: F Source: [facility]om[facility] 5:08 AM SYSTEM REPOSITORY TYPE CODE TESTS [...] #### HEMDF, BMP3M, MG3, PHOS3, LFT3 #### [facility] [address] [place] [phone] MAGNESIUM Collected: 07/04/2018 Status: F Source: [facility] 5:08 AM SYSTEM REPOSITORY TYPE CODE TESTS RESULT OUT OF RANGE REFERENCE UNITS LAB MG3 1.6-2.3 mg/dL Normal Magnesium 1.8 Performed By: #### HEMDF, BMP3M, MG3, PHOS3, LFT3 #### [facility] [address] [place] [phone] PHOSPHORUS Collected: 07/04/2018 Status: F Source: [facility] 5:08 AM SYSTEM REPOSITORY TYPE CODE TESTS RESULT OUT OF RANGE REFERENCE UNITS LAB PHOS3 2.5-4.5 mg/dL Normal Phosphorus 3.8 Performed By: #### HEMDF, BMP3M, MG3, PHOS3, LFT3 #### [facility] [address] [place] [address] HEPATIC FUNCTION Collected: 07/04/2018 Status: F Source: [facility] 5:08 AM SYSTEM REPOSITORY TYPE CODE TESTS [...] #### HEMDF, BMP3M, MG3, PHOS3, LFT3 #### [employer] [facility] [address] [place] [phone] HEMOGRAM W/ AUTODIFF Collected: 07/03/2018 Status: F Source: [facility] 2:31 AM SYSTEM REPOSITORY TYPE CODE TESTS [...] By: #### HEMDF, MG3, PHOS3, BMP3M #### [facility] [address] [place] [address] MAGNESIUM Collected: 07/03/2018 Status: F Source: [facility] 2:31 AM SYSTEM REPOSITORY TYPE CODE TESTS RESULT OUT OF RANGE REFERENCE UNITS LAB MG3 1.6-2.3 mg/dL Normal Magnesium 2.1 Performed By: #### HEMDF, MG3, PHOS3, BMP3M #### [facility] [place], [place] PHOSPHORUS Collected: 07/03/2018 Status: F Source: [facility]om[facility] 2:31 AM SYSTEM REPOSITORY TYPE CODE TESTS RESULT OUT OF RANGE REFERENCE UNITS LAB PHOS3 2.5-4.5 mg/dL Normal Phosphorus 3.8 Performed By: #### HEMDF, MG3, PHOS3, BMP3M #### [facility] [address] [place] [address] BASIC METABOLIC PANEL Collected: 07/03/2018 Status: F Source: [facility] 2:31 AM SYSTEM REPOSITORY TYPE CODE TESTS [...] By: #### HEMDF, MG3, PHOS3, BMP3M #### [facility] [address] [place] [address] URINALYSIS,MACRO Collected: 07/03/2018 Status: F Source: [facility]gnomix 2:23 AM SYSTEM REPOSITORY TYPE CODE TESTS RESULT OUT OF REFERENCE UNITS RANGE LAB APPUR Clear NA Appearance Cloudy LAB COLUR Lt. Yellow NA Color Yellow LAB USG 1.005-1.030 NA Specific Normal Kendall,Urine 1.015 LAB UPH 5.0-8.0 NA pH,Urine Normal [...] 250 Performed By: #### UAMAC, UAMIC #### [facility] [address] [place] [address] URINALYSIS,MICROSCOPIC Collected: Status: F Source: [employer] 07/03/2018 2:23 AM HEALTH SYSTEM REPOSITORY TYPE CODE TESTS RESULT OUT OF REFERENCE UNITS RANGE LAB WBCU 0-5 /[HPF] 26 WBC,Urine - 50 LAB RBCU 0-2 /[HPF] 11 RBC,Urine - 25 LAB EPIU 3-5 /[HPF] 0 Epithelial Cells - 2 LAB LILLIAM Negative NA Bacteria Many (51-100) LAB AMPH Negative NA Amorphous Moderate Phosphates (6-50) Performed By: #### UAMAC, UAMIC #### [facility] [place] [address] Observed: 07/03/2018 Status: F Source: [facility] CULTURE URINE 2:23 AM SYSTEM REPOSITORY Order Comment: Specimen Source Comment:Urine, clean catch CULTURE URINE --> Status: F No growth (<1,000 CFU/ml). Performed By: #### C/UR #### [facility] [address] [address] [address] ABDOMEN/PELVIS W/ Observed: 07/02/2018 Status: F Source: [facility] CONTRAST 8:06 AM SYSTEM REPOSITORY Patient Name: DAHLIA MARINO CT Exam Date/Time 07/02/2018 07:47:[address] Abdomen/Pelvis w/ IV Contrast (IV Onl Ordering Physician MD IVIS, MPH, MICHELINE Reyes Number [id number] CPT4 Codes 43995 (CT Abdomen/Pelvis w/ IV Contrast (IV Onl), Q9967 (CT ISOVUE 370MG/[id number]) Reason For Exam Crohns flare, known abscess [...] 8:06 URINALYSIS,MACRO Collected: 07/02/2018 Status: F Source: Prognomix 1:59 AM SYSTEM REPOSITORY TYPE CODE TESTS RESULT OUT OF REFERENCE UNITS RANGE LAB APPUR Clear NA Appearance Clear LAB COLUR Lt. Yellow NA Color P. Yellow LAB USG 1.005-1.030 NA Specific Normal Kendall,Urine 1.010 LAB UPH 5.0-8.0 NA pH,Urine Normal [...] 25 Performed By: #### UAMAC, UAMIC #### [employer] [address] [address] URINALYSIS,MICROSCOPIC Collected: Status: F Source: [employer] 07/02/2018 1:59 AM HEALTH SYSTEM REPOSITORY TYPE CODE TESTS RESULT OUT OF REFERENCE UNITS RANGE LAB WBCU 0-5 /[HPF] 11 WBC,Urine - 25 LAB RBCU 0-2 /[HPF] 3 RBC,Urine - 5 LAB EPIU 3-5 /[HPF] 3 Epithelial Cells - 5 LAB LILLIAM Negative NA Bacteria Moderate (6-50) Performed By: #### UAMAC, UAMIC #### [facility] [address] [place] [address] Observed: 07/02/2018 Status: F Source: [facility] BLOOD 1:45 AM SYSTEM REPOSITORY Order Comment: Specimen Source Comment:Blood CULTURE BLOOD --> Status: F No growth at 5 days. Performed By: #### C/BLD #### [facility] [address] [place] [address] Observed: 07/02/2018 Status: F Source: [facility] BLOOD (TWO) 1:45 AM SYSTEM REPOSITORY Order Comment: Specimen Source Comment:Blood CULTURE BLOOD (Two) --> Status: F No growth at 5 days. Performed By: #### C/BLT #### [employer] [address] HEMOGRAM W/ AUTODIFF Collected: 07/02/2018 Status: F Source: [facility] 1:37 AM SYSTEM REPOSITORY TYPE CODE TESTS [...] LACT3, TSH5, CMP3, MG3, FT4M, TROPN #### [facility] [address] [place] [phone] PROTHROMBIN TIME Collected: 07/02/2018 Status: F Source: [facility] 1:37 AM SYSTEM REPOSITORY TYPE CODE TESTS [...] LACT3, TSH5, CMP3, MG3, FT4M, TROPN #### [facility] [address] [place] [phone] LACTIC ACID Collected: 07/02/2018 Status: F Source: [facility] 1:37 AM SYSTEM REPOSITORY TYPE CODE TESTS RESULT OUT OF REFERENCE UNITS RANGE LAB LACT3 0.7-2.0 mmol/L Low Lactic Acid 0.6 Performed By: #### HEMDF, PT, LACT3, TSH5, CMP3, MG3, FT4M, TROPN #### [facility] [address] [place] [phone] THYROID STIM. Collected: 07/02/2018 Status: F Source: [facility] HORMONE 1:37 AM SYSTEM REPOSITORY TYPE CODE TESTS RESULT OUT OF REFERENCE UNITS RANGE LAB TSH5 0.465-4.680 u[IU]/mL Low Thyroid Stim. 0.175 Hormone Performed By: #### HEMDF, PT, LACT3, TSH5, CMP3, MG3, FT4M, TROPN #### [facility] [address] [place] [phone] COMP METABOLIC PANEL Collected: 07/02/2018 Status: F Source: [facility] 1:37 AM SYSTEM REPOSITORY TYPE CODE TESTS [...] LACT3, TSH5, CMP3, MG3, FT4M, TROPN #### [facility] [address] [place] [phone] MAGNESIUM Collected: 07/02/2018 Status: F Source: [facility] 1:37 AM SYSTEM REPOSITORY TYPE CODE TESTS RESULT OUT OF REFERENCE UNITS RANGE LAB MG3 1.6-2.3 mg/dL Low Magnesium 1.5 Performed By: #### HEMDF, PT, LACT3, TSH5, CMP3, MG3, FT4M, TROPN #### [facility] [address] [place] [phone] FREE T4 Collected: 07/02/2018 Status: F Source: [facility] 1:37 AM SYSTEM REPOSITORY TYPE CODE TESTS RESULT OUT OF RANGE REFERENCE UNITS LAB FT4M 0.78-2.19 ng/dL Normal Free T4 1.87 Performed By: #### HEMDF, PT, LACT3, TSH5, CMP3, MG3, FT4M, TROPN #### [facility] [address] [place] [address] TROPONIN I Collected: 07/02/2018 Status: F Source: [facility] 1:37 AM SYSTEM REPOSITORY TYPE CODE TESTS RESULT OUT OF RANGE REFERENCE UNITS LAB TROP4 0.000-0.034 ng/mL Normal Troponin I < 0.012 Result Comment: 0.046 - 0.400 = Indeterminate > 0.400 = Consider Myocardial Injury Performed By: #### HEMDF, PT, LACT3, TSH5, CMP3, MG3, FT4M, TROPN #### [facility] [address] [place] [address] ED PROVIDER NOTE Observed: 07/02/2018 Status: F Source: [facility] 12:02 AM SYSTEM REPOSITORY Emergency Department Encounter [...] the past few weeks, was seen at [facility]. yesterday, CT there showed an intra-abdominal [...] otherwise acutely negative except as in the [place]. Past History Past Medical History: Diagnosis Date [...] # 1.6 1.0 - 4.3 10*3/uL Absolute Gosper # 1.4 (H) 0.0 - 0.8 10*3/uL [...] eGFR >60.0 >60 mL/min EGFR IF NonAfrican Pakistani >60.0 >60 mL/min Calcium 8.0 (L) 8.4 [...] UA P. Yellow Lt. Yellow NA Specific Kendall, Urine 1.010 1.005 - 1.030 NA pH, [...] me Rhythm: normal sinus Rate: normal, 83 [place]: normal Ectopy: none Conduction: normal ST Segments: [...] [facility], only got the CAT scan [...] PROVIDER NOTE Observed: 07/02/2018 Status: F Source: [facility] 12:02 AM SYSTEM REPOSITORY Emergency Department Encounter [facility] EMERGENCY DEPT Patient: Dahlia Marino : 1970 Date of Evaluation: 07/02/2018 ED Provider: BLAIR HOLDEN CNP As the [id number], I performed a medical screening history and [...] per patient and family. They were at [facility] earlier this morning. Per report from [...] NURSING PROG Observed: 07/01/2018 Status: COMPLETED Source: [place] 11:34 PM [facility] REPOSITORY HNO ID: [id number] Author: Meme (Rn) EZEKIEL Ramsay Service: Emergency [...] this. I personally spoke with Winter Paez POLE FRAMER MACHINE, requested further order to check labs including [...] bleeding. PROGRESS Observed: 07/01/2018 Status: COMPLETED Source: [place] 11:15 PM [facility] REPOSITORY HNO ID: [id number] Author: Jeannine (Clayton) BLAIR Womack.CLAYTON Service: (none) Author Type: Nurse Practitioner Type: Progress Notes Filed: 07/01/2018 11:51 PM Note Text: CTBS for patient requesting to leave AMA. Nursing supervisor dry paste on floor speaking with patient and family. [...] Family is taking patient to [facility] ED at this time. Pt is alert and oriented x 3, capable of making decisions. AMA paperwork filled out and signed at bedside. Jeannine Womack CNP NURSING PROG Observed: 07/01/2018 Status: COMPLETED Source: [facility] 9:25 PM [facility] REPOSITORY HNO ID: [id number] Author: Ester (Rn) EZEKIEL Kamara Service: (none) [...] AND PELVIS Observed: 07/01/2018 Status: F Source: [facility] WITH CONTRAST 8:57 PM HEALTH SYSTEM REPOSITORY [...] advised. CONSULT Observed: 07/01/2018 Status: COMPLETED Source: [place] 4:02 PM [facility] REPOSITORY [facility] ID: [id number] Author: Misty Mcdonald Service: General Surgery Author [...] returned and got worse. Patient presented to [place] ED where CT Abd/Pelvis showed a possible [...] CONSULT PROG Observed: 07/01/2018 Status: COMPLETED Source: [facility] 3:57 PM [facility] OTHER [facility] REPOSITORY O ID: [id number] Author: Kamran Colon Service: Gastroenterology Author Type: [...] ago per patient) who presented to the [place] ED for abdominal pain. She stated she [...] she called EMS who transferred her to [facility]. In the ED her abdominal CT revealed possible abscess vs neoplasms so she was transferred to [facility]. She denied melena, hematochezia, hematemesis, and [...] Center) Assessment AND Plan: Need records from Manager [facility]. [place] in [place]. SIGNATURE: Kamran Colon APRN.CNP PATIENT NAME: Dahlia Marino DATE: July 01, 2018 TIME: 3:57 PM PAGER: NUTRITION Observed: 07/01/2018 Status: COMPLETED Source: [place] 3:47 PM [facility] OTHER [facility]AMP[facility] REPOSITORY HNO ID: [id number] Author: Argentina Zuluaga RD (Ld) Service: Nutrition [...] gm protein per serving and vanilla Boost [facility] QD, to provide 530 kcal and [...] nutritional status Reason for Assessment: Consult from [employer] OFFICER for patient with 28 lbs weight loss in 4 weeks. Per HPI: This is a 47 year old female with PMH of crohns, hypothyroid, wallace, ape, liver sx d/t infection who presents to the [facility] from [facility]. Pt called EMS and had them [...] ENSURE CLEAR MIXED PEREZ Supplement 2: BOOST [facility] VANILLA Lines and Drains: Peripheral 07/01/18 [...] Admitted) 07/01/18 0700 - 07/02/18 0659 Shift [id number] 8292-6594 24 Hour Total [id number] 8443-6331 3502-7443 24 Hour Total I N T A [...] July 01, 2018 TIME: 4:25 PM PAGER: [id number] CEA Collected: 07/01/2018 Status: F Source: [facility] 1:55 PM HEALTH SYSTEM REPOSITORY TYPE CODE TESTS RESULT OUT OF RANGE REFERENCE UNITS LAB CEA(LOINC) 0.0-3.0 ng/mL CEA 2.5 Result Comment: The reference range shown is for adult non-smokers. The range for smokers is 0-5.0 Testing performed by Chemiluminescence LOCI. Performed By: #### CEA #### [place] [address] MAGNESIUM BLOOD Collected: 07/01/2018 Status: F Source: [facility] 1:55 PM HEALTH SYSTEM REPOSITORY TYPE CODE TESTS RESULT OUT OF REFERENCE UNITS RANGE LAB MAG(LOINC) 1.6-2.6 mg/dL Magnesium Blood 1.6 Performed By: #### MAG #### [place] [address] Observed: 07/01/2018 Status: F Source: [facility] CULT BLOOD 12:00 PM HEALTH SYSTEM REPOSITORY Test performed at [facility] No growth Performed By: #### C_BLO #### [place] [address] HEMOGRAM Collected: 07/01/2018 Status: F Source: [facility] 11:55 AM HEALTH SYSTEM REPOSITORY TYPE CODE [...] MPV 9.8 Performed By: #### CBC1 #### [place] [address] LACTIC ACID Collected: 07/01/2018 Status: F Source: [facility] 11:55 AM HEALTH SYSTEM REPOSITORY TYPE CODE TESTS RESULT OUT OF REFERENCE UNITS RANGE LAB LAC(LOINC) 0.4-2.0 mEq/L Lactic Acid 0.4 Performed By: #### LAC #### [place] [address] PHOSPHORUS BLOOD Collected: 07/01/2018 Status: F Source: [facility] 11:55 AM HEALTH SYSTEM REPOSITORY TYPE CODE TESTS RESULT OUT OF REFERENCE UNITS RANGE LAB PHOS(LOINC 2.5-4.9 mg/dL ) Phosphorus Blood 3.8 Performed By: #### PHOS #### [place] [address] CRP Collected: 07/01/2018 Status: F Source: [facility] 11:55 AM HEALTH SYSTEM REPOSITORY TYPE CODE TESTS RESULT OUT OF RANGE REFERENCE UNITS LAB CRP3(LOINC) 0.00-0.30 mg/dL High CRP 8.04 Performed By: #### CRP3 #### [facility] [address] [place] [address] COMPREHENSIVE PANEL Collected: 07/01/2018 Status: F Source: [facility] 11:55 AM HEALTH SYSTEM REPOSITORY TYPE CODE [...] Gap 12 Performed By: #### P14 #### [place] [address] MDRD GFR Collected: 07/01/2018 Status: F Source: [facility] 11:[facility] REPOSITORY TYPE CODE TESTS RESULT OUT OF RANGE REFERENCE UNITS LAB GFRFN(LOINC >60mL/min/1.73m ) 2 eGFR >60 Result Comment: If the patient is , multiply the result by 1.210. Performed By: #### GFR #### [facility] [address] [place] [address] PROTIME Collected: 07/01/2018 Status: F Source: [place] [id number] [place] [address] SYSTEM REPOSITORY TYPE CODE TESTS RESULT OUT OF REFERENCE UNITS RANGE LAB PTI(LOINC) 9.7-13.0 sec Prothrombin Time 11.7 LAB INR(LOINC) 0.90-1.30 INR 1.14 Result Comment: Note: Reference Range Change Vitamin K Antagonist (VKA) Therapeutic Range: INR 2 to 3 (Target INR of 2.5) Note: For patients treated with VKA drugs, such as warfarin, the [employer] 2012 Guideline recommends [...] 70: 252-289 Performed By: #### PT #### [place] [address] ACTIVATED PTT Collected: 07/01/2018 Status: F Source: [facility] 11:[address] [place] [address] SYSTEM REPOSITORY TYPE CODE TESTS RESULT OUT [...] laboratory APTT reagent in use throughout the [facility]. Performed By: #### APTT #### [facility] [address] [place], [place] [address] SED RATE Collected: 07/01/2018 Status: F Source: [facility] 11:55 AM HEALTH SYSTEM REPOSITORY TYPE CODE TESTS RESULT OUT OF RANGE REFERENCE UNITS LAB ESR(LOINC) 0-20 mm/hr High Sed Rate 38 Performed By: #### ESR #### [facility] [address] [place], [place] [address] HISTORY PHYSICAL Observed: 07/01/2018 Status: COMPLETED Source: [place] 11:14 AM CLINIC OTHER CAMPUS REPOSITORY HNO ID: [id number] Author: Meryl Hogan Service: Hospital Medicine Author Type: Nurse Practitioner Type: HANDP Filed: 07/01/2018 11:50 AM Note Text: Attestation signed by Jose Altamirano at 2018 5:50 PM (Updated) I have personally seen and examined the patient. I agree with the SPECIAL [employer] TACT[employer] OFFICER's note with following addition. Ms Marino, a 47 years old lady who has hx of UC and is on Humira Q week (last dose 2 weeks ago) under care of GI (? Dr Bender in [facility]) and multiple bowel surgeries including bowel resection, has abdominal pain for more than a month initially in lower part now generalized worse with food. Has fever in the last few days. Normal BM (reported diarrhea to [facility]), no nausea. Was treated with flagyl for a week a month ago. Last c scope > 5 years ago and last surgery > 5 years ago. She presented to [facility] where she was noted to [...] 2 weeks ago), under the care of bundle tier and labeler ? Dr Bender 4. Hx of multiple [...] sx d/t infection who presents to the [facility] from [facility]. Pt called EMS and had them [...] July 01, 2018 TIME: 11:15 AM PAGER: [id number] CT ABDOMEN/PELVIS W Observed: 07/01/2018 Status: F [facility] AM [place] [address] Patient: DAHLIA MARINO Phone#: : 1970 Age: 47 Gender: F Pt. Type: ER Account: [id number] Location: 2 Ordering: DOROTEO TABOR Exam Date: 07/01/2018/0:28 Family Phys: MARLO Pj LANG Charge Code: 231480 Physician: Gentry Order #: [id number] DLP Dose#: 9.80 PROCEDURE: CT ABDOMEN/PELVIS WITH [...] 47 Gender: F Pt. Type: ER Account: [id number] Location: 052 Ordering: DOROTEO TABOR Exam Date: 07/01/2018/0:28 Family Phys: MARLO LANG Charge Code: 204304 Physician: Gentry Order #: [id number] DLP Dose#: 9.80 ABDOMINAL WALL: Normal. No [...] 8:50 URINALYSIS Collected: 07/01/2018 Status: F Source: [facility] 12:34 AM [facility] REPOSITORY TYPE CODE TESTS RESULT OUT [...] Urobilinog(LOINC) NORMAL: NORMAL Urobilinog NORM LAB Sp Kendall(LOINC) NORMAL: 1.010-1.030 Sp Kendall 1.015 LAB Nitrite(LOINC) NORMAL: NEGATIVE Nitrite NEG [...] LAB Yeast(LOINC) Yeast NONE Performed By: #### [id number] #### [facility],[address] [place] [address] Observed: 06/30/2018 Status: F Source: [facility] CULTURE BLOOD 11:25 PM [facility] REPOSITORY CULTURE BLOOD CULTURE BLOOD SET: 2 of 2 24HOUR REPORT NEGATIVE 48HOUR REPORT NEGATIVE 72HOUR REPORT NEGATIVE M I C R O B I O L O G Y R E P O R T FINAL Antimicrobial Susceptibility and Organism Identification Report Specimen Number : [id number] Requested : 06/30/18 Specimen Source : BLOOD Collected : 06/30/18 23:25 [place] [facility] Isolation : Emergency Room Received : 06/30/18 23:25 Requesting Physician : christina Patient/Specimen Tests and Comments Specimen Comments FINAL REPORT: No Growth at 5 Days Tech : Source : BLOOD ID # : [id number] FINAL Report Date : / / : Collected : 06/30/18 23:25 07/06/18.1142.BKO. 07/06/18.1142.BKO.COMPLETE Performed By: #### [id number] #### [facility],[address] [place] [address] CBC Collected: 06/30/2018 Status: F Source: [facility] 10:45 PM [facility] REPOSITORY TYPE CODE TESTS RESULT OUT [...] x10EE3/U L Neut # High 10.00 LAB Gosper #(LOINC) 0.20 - 1.00 x10EE3/U L Gosper # High 1.30 LAB EO #(LOINC) 0.00 - 0.50 x10EE3/U L EO # 0.00 LAB Baso #(LOINC) 0.00 - 0.10 x10EE3/U L Baso # 0.10 LAB MANUAL DIFF([facility]) MANUAL DIFF N/A LAB MORPHOLOGY(INC ) MORPHOLOGY N/A Result Comment: {CD] Performed By: #### [id number] #### [place] [address] LACTATE Collected: 06/30/2018 Status: F Source: [facility] 10:45 PM [facility] REPOSITORY TYPE CODE TESTS RESULT OUT OF REFERENCE UNITS RANGE LAB LACTATE(MESSI 4.5 - 18.0 mg/dL NC) Low LACTATE 4.3 Performed By: #### [id number] #### [place] [address] CMP WITH EGFR Collected: 06/30/2018 Status: F Source: [facility] 10:45 PM [facility] REPOSITORY TYPE CODE TESTS RESULT OUT [...] OF AGE AND OLDER. Performed By: #### [id number] #### [place] [id number] LIPASE Collected: 06/30/2018 Status: F Source: [facility] 10:45 [facility] REPOSITORY TYPE CODE TESTS RESULT OUT OF REFERENCE UNITS RANGE LAB LIPASE(LOIN 18.0 - 51.0 U/L C) LIPASE 18.0 Performed By: #### [id number] #### [place] [id number] TROPONIN Collected: 06/30/2018 Status: F Source: [facility] 10:45 [facility] REPOSITORY TYPE CODE TESTS RESULT OUT [...] such as heterophile antibodies). Performed By: #### [id number] #### [facility],[address] [place] [address] TSH Collected: 06/30/2018 Status: F Source: [facility] 10:45 PM [facility] REPOSITORY TYPE CODE TESTS RESULT OUT OF RANGE REFERENCE UNITS LAB TSH(LOINC) 0.34 - 5.60 uIU/ml Low TSH 0.17 Performed By: #### [id number] #### [place] [address] Observed: 06/30/2018 Status: F Source: [facility] CULTURE BLOOD 10:45 [facility] REPOSITORY CULTURE BLOOD CULTURE BLOOD SET: 1 of 2 24HOUR REPORT NEGATIVE 48HOUR REPORT NEGATIVE 72HOUR REPORT NEGATIVE M I C R O B I O L O G Y R E P O R T FINAL Antimicrobial Susceptibility and Organism Identification Report Specimen Number : [id number] Requested : 06/30/18 Specimen Source : BLOOD Collected : 06/30/18 22:45 [place] of Isolation : Emergency Room Received : 06/30/18 22:45 Requesting Physician : christina Patient/Specimen Tests and Comments Specimen Comments FINAL REPORT: No Growth at 5 Days Tech : Source : BLOOD ID # : [id number] FINAL Report Date : / / : Collected : 06/30/18 22:45 07/06/18.1142.BKO. 07/06/18.1142.BKO.COMPLETE Performed By: #### [id number] #### [facility],[address] [place] [address] EMERGENCY REPORT Observed: 06/30/2018 Status: F Source: [facility] 9:55 PM [facility] EMERGENCY ROOM REPORT NAME ACCOUNT SEX AGE ADMIT DISCHARGE PT MED. RECORD# NUMBER DATE DATE TYPE DAHLIA MARINO [id number] F 47 06/30/18 07/01/18 3 R [id number] ROOM: ER DATE OF : 1970 DICTATING [...] first contacted our surgical service here at [facility], who due to this patient's complicated medical history suggested transfer to [facility] [place]. I then contacted [place], who suggested contacting the [facility] due to her complicated history. I then contacted [facility], who was agreeable with accepting the patient. The patient was monitored in our Emergency Department throughout the night and then transferred in stable condition. Dictated By: Doroteo Tabor DO 07/01/18 07:00 JOB #: [id number] Transcribed By: jen 07/01/18 09:44 Electronically signed by: E-SIGN: Doroteo Tabor D.O. 07/08/18 06:49 Page 2 of 2 DAHLIA MARINO Emergency Room Report EMERGENCY REPORT Observed: 06/30/2018 Status: F Source: [facility] 9:55 PM [facility] EMERGENCY ROOM REPORT NAME ACCOUNT SEX AGE ADMIT DISCHARGE PT MED. RECORD# NUMBER DATE DATE TYPE DAHLIA MARINO [id number] F 47 06/30/18 07/01/18 3 R [id number] ROOM: ER DATE OF : 1970 DICTATING [...] Lore Mujica DO 07/01/18 08:22 JOB #: [id number] Transcribed By: jen 07/01/18 10:00 Electronically signed by: E-Sign: LORE MUJICA MD 07/12/18 12:00 Page 1 of 1 DAHLIA MARINO Emergency Room Report EMERGENCY DEPARTMENT Observed: 05/11/2018 Status: F Source: [place] REPORT 4:14 PM [facility] [place] [address] HEALTH INFORMATION MANAGEMENT EMERGENCY DEPARTMENT REPORT Patient: DAHLIA MARINO KATIA TAMEZ D.O. [id number] [age] F Status: DEP ER ED Date of Service: 05/08/18 CHIEF COMPLAINT A 47-year-old female. Chief complaint: Vaginal problem. HISTORY OF PRESENT ILLNESS The patient says she has had a recurrent yeast infection. She has had a discolored discharge. She has had a hysterectomy. She does not have a employment manager. No other complaints. No abdominal pain, just [...] I am going to refer her to PIT OPERATOR for followup. <Electronically signed by KATIA TAMEZ D.O.> 05/12/18 0538 KATIA TAMEZ D.O. cc: KATIA TAMEZ D.O. << Signature on File>> Reported By: KATIA TAMEZ D.O. Signed By: KATIA TAMEZ D.O. Tests performed at: [address] [address] ED PROV NOTE Observed: 05/11/2018 Status: COMPLETED Source: [place] 4:14 PM CLINIC MAIN CAMPUS REPOSITORY HNO ID: [id number] Author: Katia Tamez Service: (none) Author Type: Physician Type: ED Provider Notes Filed: 06/23/2018 9:00 PM Note Text: [place] [address] HEALTH INFORMATION MANAGEMENT EMERGENCY DEPARTMENT REPORT Patient: DAHLIA MARINO KATIA TAMEZ D.O. [id number] [age] F Status: [facility] ER ED Date of Service: 05/08/18 CHIEF COMPLAINT A 47-year-old female. Chief complaint: Vaginal problem. HISTORY OF PRESENT ILLNESS The patient says she has had a recurrent yeast infection. She has had a discolored discharge. She has had a hysterectomy. She does not have a employment manager. No other complaints. No abdominal pain, just [...] I am going to refer her to PIT OPERATOR for followup. <Electronically signed by KATIA TAMEZ D.O.> 05/12/18 0538 KATIA TAMEZ D.O. cc: KATIA TAMEZ D.O. << Signature on File>> Reported By: KATIA TAMEZ D.O. Signed By: KATIA TAMEZ D.O. Tests performed at: [address] [address] Observed: 05/08/2018 Status: F Source: [facility] WET PREP 3:09 AM HOSPITAL REPOSITORY WET PREP FEW EPITHELIAL CELLS MANY WBC'S FEW RBC'S NEGATIVE FOR YEAST NEGATIVE FOR TRICHOMONAS Performed By: #### [id number] #### [facility] [address] [place] [address] EMERGENCY REPORT Observed: 01/09/2018 Status: F Source: [facility] 7:13 PM [facility] REPOSITORY [facility] EMERGENCY ROOM REPORT NAME ACCOUNT SEX AGE ADMIT DISCHARGE PT MED. RECORD# NUMBER DATE DATE TYPE DAHLIA MARINO [id number] F 47 12/28/17 12/28/17 3 R [id number] ROOM: ER DATE OF : 1970 DICTATING [...] the coronary arteries by Dr. Haque in [place]. She states that she has had an [...] Mor Douglass DO 12/28/17 06:44 JOB #: [id number] Transcribed By: sp 12/29/17 05:54 Electronically signed by: E-SIGN MOR RAFAT ARSHAD 01/09/18 19:10 Page 2 of 2 NED DAHLIA R Emergency Room Report CBC Collected: 12/28/2017 Status: F Source: [facility] 4:10 AM [facility] REPOSITORY TYPE CODE TESTS RESULT OUT [...] x10EE3/U L Neut # High 10.70 LAB Gosper #(LOINC) 0.20 - 1.00 x10EE3/U L Gosper # 0.50 LAB EO #(LOINC) 0.00 - 0.50 x10EE3/U L EO # 0.10 LAB Baso #(LOINC) 0.00 - 0.10 x10EE3/U L Baso # 0.00 LAB MANUAL DIFF(LOINC) MANUAL DIFF N/A LAB MORPHOLOGY(LOINC ) MORPHOLOGY N/A Result Comment: {CD] Performed By: #### [id number] #### [facility],[address] [place] [address] CMP WITH EGFR Collected: 12/28/2017 Status: F Source: [facility] 4:10 AM [facility] REPOSITORY TYPE CODE TESTS RESULT OUT [...] OF AGE AND OLDER. Performed By: #### [id number] #### [place] [address] LIPASE Collected: 12/28/2017 Status: F Source: [facility] 4:10 [facility] REPOSITORY TYPE CODE TESTS RESULT OUT OF REFERENCE UNITS RANGE LAB LIPASE(LOIN 18.0 - 51.0 U/L C) LIPASE 25.0 Performed By: #### [id number] #### [place] [address] TROPONIN Collected: 12/28/2017 Status: F Source: [facility] 4:10 [facility] REPOSITORY TYPE CODE TESTS RESULT OUT [...] such as heterophile antibodies). Performed By: #### [id number] #### [place] [id number] ALLERGIES ALLERGIES DATE TYPE / NAME / CODE REACTION SEVERITY SOURCE CODE 08/29/2018 Drug doxycycline/H486033 Other Unknown [place] Allergy/41 748(RXNORM) [facility] [id number]([facility]) Repository 08/29/2018 Drug erythromycin Hives Unknown [place] Allergy/41 base/P879810396(RXN Community 5390590(SN ORM) [facility]) Repository 08/29/2018 Drug metronidazole/F0060 Other Unknown [place] Allergy/41 85191(RXNORM) [facility] 6989616([facility]) Repository 07/01/2018 DRUG DOXYCYCLINE SHORTNESS OF High [place] INGREDI/41 Clinic Other 8463353([facility]MED [facility]) Repository 07/01/2018 DRUG METRONIDAZOLE INTOLERANCE [place] INGREDI/41 Clinic Other 2392810([facility]) Repository 07/01/2018 DRUG AZITHROMYCIN SHORTNESS OF [place] INGREDI/41 Clinic Other 1139446([facility] OME [facility]) Repository NG/1875064 DOXYCYCLINE [facility]) Repository NG/6602814 METRONIDAZOLE [facility] 06([facility]) Repository NG/7785057 AZITHROMYCIN [facility] 06(SNOM[facility]) Repository Drug DOXYCYCLINE/8914581 Moderate Kashif Pomerene Allergy/41 0(RXNORM) ([facility] 5255684(SN Modifier) [facility]) (Qualifier Repository Value) Drug FLAGYL/67841657(RXN Moderate Kashif Pomerene Allergy/41 ORM) ([facility] 4977814(SN Modifier) [facility]) (Qualifier Repository Value) Drug ERYTHROMYCIN/427248 Moderate Kashif Pomerene Allergy/41 26(RXNORM) ([facility] 1359464(SN Modifier) [facility]) (Qualifier Repository Value) ENCOUNTERS ENCOUNTERS ADMIT/DISCHARGE ACCOUNT NUMBER ADMITTING ENCOUNTER LOCATION SOURCE CLASS 09/06/2018 [id number] [facility] ding:MEDOUTP Repository 09/05/2018 [id number] Ambulatory [facility] ding:MEDOUTP Repository 09/05/2018 [id number] [facility] Repository 09/04/2018/09/04/[id number] ding:MEDOUTP Repository 09/03/2018/09/03/[id number] ding:MEDOUTP Repository 09/02/2018 [id number] [facility] Repository 09/01/2018 [id number] Ambulatory [place] [facility] ding:[facility] Repository 09/01/2018 [id number] Emergency [facility] [place] [address] ERRoom: System [id number]: Repository [id number] 09/01/2018 [id number] Ambulatory [facility] Repository 08/31/2018 [id number] Ambulatory [place] [facility] ding:MEDOUTP Repository 08/30/2018 [id number] Ambulatory Samara Sam[facility] ding:MEDOUTP Repository 08/30/2018 [id number] Ambulatory [facility] Repository 08/29/2018 [id number] Ambulatory [place] [facility] ding:MED[facility]P Repository 08/28/2018/08/28/19 [id number] Ambulatory [place]ara 19 [facility] ding:MEDOUTP Repository 08/27/2018/08/27/19 [id number] Ambulatory Samara [place] 19 [facility] ding:MED[facility]P Repository 08/26/2018 [id number] Ambulatory [place] [facility] ding:MEDOUTP Repository 08/25/2018 [id number] Ambulatory Samara Samara [facility] ding:MEDOUTP Repository 08/25/2018 [id number] Ambulatory [facility] Repository 08/24/2018 [id number] Ambulatory [place] [facility] ding:MEDOUTP Repository 08/23/2018/08/23/19 [id number] Ambulatory [place] Samara 19 [facility] ding:MEDOUTP Repository 08/22/2018 [id number] Ambulatory [place]ara [facility] ding:MEDOUTP Repository 08/21/2018/08/21/20 [id number] Ambulatory [place] Samara 18 [facility] ding:MEDOUTP Repository 08/20/2018/08/20/20 [id number] Ambulatory Samara Samara 18 [facility] ding:MEDOUTP Repository 08/19/2018 [id number] [facility] ding:[facility] Repository 08/18/2018 [id number] Ambulatory [place] [facility] ding:MED[facility]P Repository 08/17/2018 [id number] Ambulatory [place] [facility] ding:MED[facility]P Repository 08/16/2018/08/16/20 [id number] Ambulatory Samara Samara 18 [facility] ding:[facility]P Repository 08/15/2018 [id number] Ambulatory [place] [facility] ding:MED[facility]P Repository 08/14/2018/08/14/20 [id number] Ambulatory Samara Samara 18 [facility] ding:MED[facility]P Repository 08/13/2018/08/13/20 [id number] Ambulatory Samara Sam[place] 18 [facility] ding:[facility]P Repository 08/12/2018 [id number] Ambulatory [place] [facility] ding:MED[facility]P Repository 08/11/2018 [id number] Ambulatory [place] [facility] ding:MED[facility]P Repository 08/10/2018 [id number] Ambulatory [place] [facility] ding:MED[facility]P Repository 08/09/2018 [id number] Ambulatory [place] [facility] ding:MED[facility]P Repository 08/08/2018 [id number] [facility]ulatory Samara [facility] ding:MED[facility]P Repository 08/07/2018/08/07/20 [id number] Ambulatory Samara Samara 18 [facility] ding:[facility]P Repository 08/06/2018/08/06/20 [id number] Ambulatory [place] Samara 18 [facility] ding:MED[facility]P Repository 08/05/2018 [id number] [facility]ulatory Samara Sam[facility] ding:[facility]P Repository 08/04/2018 [id number] Ambulatory Samara Sam[facility] ding:MED[facility]P Repository 08/04/2018 [id number] Ambulatory [facility] Repository 08/04/2018 [id number] Ambulatory [facility] Repository 08/03/2018 [id number] [facility] [place] [facility] ding:[facility]P Repository 08/02/2018 [id number] [facility] [place] [facility] ding:MED[facility]P Repository 08/01/2018 [id number] [facility] ding:MEDOUTP Repository 07/31/2018/07/31/20 [id number] Ambulatory [place] [address] [place] [address] [facility] ding:MEDOUTP Repository 07/30/2018/07/30/20 [id number] Ambulatory [place] [address] [place] [address] [facility] ding:MEDOUTP Repository Room: [facility] 07/29/2018 [id number] [facility] ding:MEDOUTP Repository 07/29/2018 [id number] Ambulatory [facility] Repository 07/28/2018 [id number] [facility] [place] [facility] ding:MEDOUTP Repository 07/27/2018 [id number] [facility] [place] [facility] ding:MEDOUTP Repository 07/26/2018 [id number] [facility] ding[facility] Repository 07/26/2018 [id number] Ambulatory [facility] Repository 07/25/2018 [id number] [facility] ding:MED[facility]P Repository 07/24/2018/07/24/20 [id number] Ambulatory Samara Samara [address] [place] [address] [facility] ding:MEDOUTP Repository 07/23/2018/07/23/20 [id number] Ambulatory Samara Samara [address] [place] [address] [facility] ding:MEDOUTP Repository 07/22/2018 [id number] [facility] ding:MED[facility]P Repository 07/21/2018 [id number] [facility] ding:MED[facility]P Repository 07/17/2018 [id number] [facility] 4NRoom: System [id number]: Repository [id number] 07/02/2018 [id number] Inpatient [facility] Encounter 6WRoom: System [id number]: Repository [id number] 07/01/2018/07/02/20 [id number] [place], Inpatient [place] 18 [address] Encounter Clinic Other [place] Repository 07/01/2018/07/02/20 [id number] [place], Inpatient [place] [facility] 18 [address] Encounter [facility] MEDICAL Repository CENTERBuildi nRoom: 7121Bed: 06/30/2018/07/01/20 [id number] CHRISTINA, Emergency Buildin[address] [place] [address] 18 DOROTEO D Room: ERBed: [facility] Repository 05/08/2018/05/08/20 [id number] Emergency UNIBuilding: [address] Repository 12/28/2017/12/29/19 [id number] RAFAT, Emergency Buildin[address] [place] [address] 18 MOR DO Room: ERBed: [facility] Repository PAYERS PAYERS ENCOUNTER GUARANTOR 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 SOURCE 09/06/2018 DAHLIA Hathaway Primary Insurance:SELF NOT GIVENUNK [facility] Number: [place] Date:2018-08-30 Repository 07158Cnx: () 09/05/2018 DAHLIA R Primary Insurance:SELF [facility]K [facility] Number: [place] Date:2018-08-30 Repository [address]Rxq: () 09/05/2018 Dahlia Primary Dahlia NedDOB[facility]: Insurance:MedicarePoli [id number] System cy Number: Effective [facility] Date: [place], [place] [address]Yxv: () 09/05/2018 Secondary Dahlia BarkesDOB: [facility] Insurance:MedicarePoli [id number] System cy Number: Effective Repository Date: 09/05/2018 Tertiary Dahlia BarkesDOB: [facility] Insurance:Self [id number] System PayPolicy Number: Repository Effective Date: 09/04/2018 DAHLIA R Primary Insurance:SELF NOT GIVENUNK [place] [id number] [facility]Y [facility] Number: Effective [place] Date:2018-08-30 Repository [address]Nqk: (HP) 09/03/2018 DAHLIA R Primary Insurance:SELF NOT GIVENUNK [place] [id number] [facility]Y [facility] Number: [place] Date:2018-08-30 Repository [address]Ouo: (HP) 09/02/2018 DAHLIA R Primary Insurance:SELF NOT GIVENUNK [place] [id number] [facility] Number: Effective [place] Date:2018-08-30 Repository [address]Yln: (HP) 09/01/2018 DAHLIA R Primary Insurance:SELF NOT GIVENUNK [place] [id number] [facility]Y [facility] Number: Effective [place] Date:2018-08-30 Repository [address]Awj: (HP) 09/01/2018 Dahlia Primary Dahlia BarkesDOB: [facility] BarkesDOB: Insurance:MedicarePoli [id number] System cy Number: Effective [facility] Date: [place], [place] [address]Ogv: () 09/01/2018 Secondary Dahlia BarkesDOB: [facility] Insurance:Self [id number] System PayPolicy Number: Repository Effective Date: 09/01/2018 Dahlia Primary Dahlia BarkesDOB: [facility] BarkesDOB: Insurance:MedicarePoli [id number] System cy Number: Effective Repository [place] Date: [place], [place] [address]Zqq: (HP) 09/01/2018 Secondary Dahlia BarkesDOB: [facility] Insurance:Self [id number] System PayPolicy Number: Repository Effective Date: 08/31/2018 DAHLIA R Primary Insurance:SELF NOT GIVENUNK [place] [id number] [facility] Date:2018-08-30 Repository [address]Evn: (HP) 08/30/2018 DAHLIA R Primary Insurance:SELF NOT GIVENUNK [place] [id number] [facility]Y [facility] Date:2018-08-24 Repository [address]Djb: (HP) 08/30/2018 Dahlia Primary Dahlia MarinoDOB: [facility] BarkesDOB: Insurance:MedicarePoli [id number] System cy Number: Effective [facility] Date: [facility] [place] [address]Nyd: (HP) 08/30/2018 Secondary Dahlia NancieB: [facility] Insurance:Self [id number] System PayPolicy Number: Repository Effective Date: 08/29/2018 DAHLIA R Primary Insurance:SELF NOT GIVENUNK [place] [id number] PAY [facility] Date:2018-08-24 Repository [address]Eqr: (HP) 08/28/2018 DAHLIA R Primary Insurance:SELF NOT GIVENUNK [place] [id number] [facility]Y [facility] Date:2018-08-24 Repository 13479Jjn: (HP) 08/27/2018 DAHLIA R Primary Insurance:SELF NOT GIVENUNK [place] [id number] [facility]Y [facility] Date:2018-08-24 Repository [address]Xzg: (HP) 08/26/2018 DAHLIA R Primary Insurance:SELF NOT GIVENUNK [place] [id number] [facility]Y [facility]:2018-08-24 Repository [address]Fbl: (HP) 08/25/2018 DAHLIA R Primary Insurance:SELF NOT GIVENUNK [place] [id number] PAY [facility]:2018-08-24 Repository 31165Ltb: (HP) 08/25/2018 Dahlia Primary Dahlia MarinoB: [facility] BarkjenyDOB: Insurance:MedicarePoli [id number] System cy Number: Effective [facility] Date: [place], [place] [address]Wrf: (HP) 08/25/2018 Secondary Dahlia MarinoB: [facility] Insurance:Self [id number] System PayPolicy Number: Repository Effective Date: 08/24/2018 DAHLIA R Primary Insurance:SELF NOT GIVENUNK [place] [id number] PAY [facility] Date:2018-08-22 Repository [address]Nmm: (HP) 08/23/2018 DAHLIA R Primary Insurance:SELF NOT GIVENUNK [place] [id number] [facility]Y [facility] Effective [facility]:2018-08-09 Repository [address]Akb: (HP) 08/22/2018 DAHLIA R Primary Insurance:SELF NOT GIVENUNK [place] [id number] PAY [facility] Effective [facility] Date:2018-08-22 Repository [address]Fuj: (HP) 08/21/2018 DAHLIA R Primary Insurance:SELF NOT GIVENUNK [place] [id number] [facility]Y [facility] Effective [facility]:2018-08-09 Repository [address]Shd: (HP) 08/20/2018 DAHLIA R Primary Insurance:SELF NOT GIVENUNK [place] [id number] [facility]Y [facility] Effective [facility] Date:2018-08-09 Repository [address]Xow: (HP) 08/19/2018 DAHLIA R Primary Insurance:SELF NOT GIVENUNK [place] [id number] [facility]Y [facility] Effective [facility] Date:2018-08-09 Repository [address]Ujx: (HP) 08/18/2018 DAHLIA R Primary DAHLIA R [place] [id number] Insurance:MEDICARE A BARKESDOB[facility] Number: [id number] [id number] Repository [address]Rod: 330) Date:2018-08-09 [phone] (HP) 08/18/2018 Secondary NOT GIVENUNK [place] Insurance:SELF PAY [facility] Number: Effective Repository Date:2018-08-09 08/17/2018 DAHLIA R Primary DAHLIA R Saamra [id number] Insurance:MEDICARE A BARKESDOB: [facility] Number: [id number] [place], [place] [id number] Repository [address]Tso: (564) Date:2018-08-09 [phone] (HP) 08/17/2018 Secondary NOT GIVENUNK [place] Insurance:SELF PAY [facility] Number: Effective Repository Date:2018-08-09 08/16/2018 DAHLIA R Primary DAHLIA R [place] [id number] Insurance:MEDICARE A BARKESDOB: [facility] Number: [id number] [place], [place] [id number] Repository [address]Ozu: (330) Date:2018-08-09 [phone] (HP) 08/16/2018 Secondary NOT GIVENUNK [place] Insurance:SELF PAY [facility] Number: Effective Repository Date:2018-08-09 08/15/2018 DAHLIA R Primary Insurance:SELF NOT GIVENUNK [place] [id number] [facility]Y [facility] Number: [place] Date:2018-08-09 Repository [address]Ich: (HP) 08/14/2018 DAHLIA R Primary Insurance:SELF NOT GIVENUNK [place] [id number] [facility]Y [facility] Number: [place] Date:2018-08-09 Repository [address]Fyt: (HP) 08/13/2018 DAHLIA R Primary Insurance:SELF NOT GIVENUNK [place] [id number] PAY [facility] Number: Effective [facility] Date:2018-08-09 Repository [address]Iee: () 08/12/2018 DAHLIA R Primary Insurance:SELF NOT GIVENUNK [place] [id number] [facility]Y [facility] Number: Effective [facility] Date:2018-08-09 Repository [address]Lpg: () 08/11/2018 DAHLIA R Primary Insurance:SELF NOT GIVENUNK [place] [id number] PAY [facility] Number: Effective [facility] Date:2018-08-09 Repository 360[address]Ndf: () 08/10/2018 DAHLIA R Primary Insurance:SELF NOT GIVENUNK [place] [id number] [facility]Y [facility] Number: Effective [facility] Date:2018-07-26 Repository 74857Mcm: () 08/09/2018 DAHLIA R Primary Insurance:SELF NOT GIVENUNK [place] [id number] PAY [facility] Number: Effective [facility] Date:2018-07-26 Repository [address]Rgm: () 08/08/2018 DAHLIA R Primary Insurance:SELF NOT GIVENUNK [place] [id number] PAY [facility]: Effective [facility] Date:2018-07-26 Repository [address]Vyz: () 08/07/2018 DAHLIA R Primary Insurance:SELF NOT GIVENUNK [place] [id number] PAY [facility] Number: Effective Hospital [facility] Date:2018-07-26 Repository 13660Wrr: () 08/06/2018 DAHLIA R Primary Insurance:SELF NOT GIVENUNK [place] [id number] PAY [facility] Number: Effective [facility] Date:2018-07-26 Repository [address]3247Gqx: (HP) 08/05/2018 DAHLIA R Primary Insurance:SELF NOT GIVENUNK [place] [id number] PAY [facility] Number: Effective [place] Date:2018-07-26 Repository [address]Ivr: (HP) 08/04/2018 DAHLIA R Primary Insurance:SELF NOT GIVENUNK [place] [id number] [facility]Y [facility] Number: Effective [place] Date:2018-07-26 Repository [address]Olc: (HP) 08/04/2018 Dahlia Primary Dahlia BarkesDOB: [facility] BarkesDOB: Insurance:MedicarePoli [id number] System cy Number: Effective [facility] Date: [place], [place] [address]Oaf: () 08/04/2018 Secondary Dahlia BarkesDOB: [facility] Insurance:Self [id number] System PayPolicy Number: Repository Effective Date: 08/04/2018 Dahlia Primary Dahlia BarkesDOB: [facility] BarkesDOB: Insurance:MedicarePoli [id number] System cy Number: Effective [facility] Date: [place], [place] [address]Wls: () 08/04/2018 Secondary Dahlia BarkesDOB: [facility] Insurance:Self [id number] System PayPolicy Number: Repository Effective Date: 08/03/2018 DAHLIA R Primary Insurance:SELF NOT GIVENUNK [place] [id number] PAY [facility] Effective [facility] [place] Date:2018-07-26 Repository [address]Bby: (HP) 08/02/2018 DAHLIA R Primary Insurance:SELF NOT GIVENUNK [place] [id number] PAY [facility] Number: Effective Hospital [facility] [place] Date:2018-07-26 Repository 34856Kxq: () 08/01/2018 DAHLIA R Primary DAHLIA R [place] [id number] Insurance:MEDICARE A BARKESDOB: [facility] ONLYPolicy Number: [id number] [place]ive, [place] [id number] Repository [address]Omd: (330) Date:2018-07-26 [phone] (HP) 08/01/2018 Secondary NOT GIVENUNK [place] Insurance:SELF PAY [facility] Number: Effective Repository Date:2018-07-26 07/31/2018 DAHLIA Hathaway Primary DAHLIA Hathaway [place] [id number] Insurance:MEDICARE A BARKESDOB: [facility] ONLYPolicy Number: [id number] [place], [place] [id number] Repository [address]Ujh: (330) Date:2018-07-26 [phone] (HP) 07/31/2018 Secondary NOT GIVENUNK [place] Insurance:SELF PAY [facility] Number: Effective Repository Date:2018-07-26 07/30/2018 DAHLIA Hathaway Primary DAHLIA Hathaway [place] [id number] Insurance:MEDICARE A BARKESDOB: [facility] Number: [id number] [place]ive, [place] [id number] Repository [address]Qta: (330) Date:2018-07-26 [phone] () 07/30/2018 Secondary NOT GIVENUNK [place] Insurance:SELF PAY [facility] Number: Effective Repository Date:2018-07-26 07/29/2018 DAHLIA Hathaway Primary DAHLIA Hathaway Sam[place] [id number] Insurance:MEDICARE A BARKESDOB: [facility] Number: [id number] [place], [place] [id number] Repository [address]Tij: (330) Date:2018-07-26 [phone] (HP) 07/29/2018 Secondary NOT GIVENUNK [place] Insurance:SELF PAY [facility] Number: Effective Repository Date:2018-07-26 07/29/2018 Dahlia Villagomez BarkesDOB: [facility] BarkesDOB: Insurance:MedicarePoli [id number] System cy Number: Effective Repository [place] Date: [place], [place] [address]Ryp: (HP) 07/28/2018 DAHLIA R Primary DAHLIA R Sam[place] [id number] Insurance:MEDICARE A BARKESDOB: [facility] ONLYPolicy Number: [id number] Rive, [place] [id number] Repository [address]Jjc: (330) Date:2018-07-26 [phone] (HP) 07/28/2018 Secondary NOT GIVENUNK [place] Insurance:SELF PAY [facility] Number[facility] Effective Repository Date:2018-07-26 07/27/2018 DAHLIA R Primary Insurance:SELF NOT GIVENUNK [place] [id number] PAY [facility] Number: [place] Date:2018-07-26 Repository [address]Tui: (HP) 07/26/2018 DAHLIA R Primary DAHLIA R [place] [id number] Insurance:MEDICARE A BARKESDOB: [facility] Number: [id number] [place], [place] [id number] Repository [address]Nlx: (330) Date:2018-07-26 [phone] (HP) 07/26/2018 Secondary NOT GIVENUNK [place] Insurance:SELF PAY [facility] Number: Effective Repository Date:2018-07-26 07/26/2018 Dahlia Primary Adhlia BarkesDOB: [facility] BarkesDOB: Insurance:MedicarePoli [id number] System cy Number: Effective [facility] Date: [place], [place] [address]Oky: (HP) 07/26/2018 Secondary Dahlia BarkesDOB: [facility] Insurance:Self [id number] System PayPolicy Number: Repository Effective Date: 07/25/2018 DAHLIA R Primary DAHLIA R [place] [id number] Insurance:MEDICARE A BARKESDOB: [facility] Number: [id number] [place], [place] [id number] Repository [address]Uyq: (330) Date:2018-07-20 [phone] () 07/25/2018 Secondary NOT GIVENUNK [place] Insurance:SELF PAY [facility] Number: Effective Repository Date:2018-07-20 07/24/2018 DAHLIA R Primary DAHLIA R [place] [id number] Insurance:MEDICARE A BARKESDOB: [facility] Number: [id number] [place] [id number] Repository [address]Htv: (415) Date:2018-07-20 [phone] (HP) 07/24/2018 Secondary NOT GIVENUNK [place] Insurance:SELF PAY [facility] Number: Effective Repository Date:2018-07-20 07/23/2018 DAHLIA R Primary Insurance:SELF NOT GIVENUNK [place] [id number] [facility]Y [facility] Number: [place]:2018-07-20 Repository 537[address]Zlx: (HP) 07/22/2018 DAHLIA R Primary Insurance:SELF NOT GIVENUNK [place] [id number] PAY [facility] Number: [place]:2018-07-20 Repository [address]Brb: (HP) 07/21/2018 DAHLIA R Primary Insurance:SELF NOT GIVENUNK [place] [id number] [facility]Y [facility] Number: Effective [place] Date:2018-07-20 Repository [address]Kys: (HP) 07/17/2018 Dahlia Primary Dahlia BarkesDOB: [facility] BarkesDOB: Insurance:MedicarePoli [id number] System cy Number: Effective Repository [place] Date: [place], [place] [address]Tav: (HP) 07/02/2018 [facility] Primary Dahlia BarkesDOB: [facility] BarkesDOB: Insurance:MedicarePoli [id number] System cy Number: Effective [facility] Date: [place], [place] [address]Pno: (HP) 07/02/2018 Secondary Dahlia BarkesDOB: [facility] Insurance:Self [id number] System PayPolicy Number: Repository Effective Date: 07/01/2018 DAHLIA R [facility]ARE BARKESDOB: [facility] System APolicy Number: [id number] Repository [place] [id number] [place], [place] Date: [address]Nbf: () 06/30/2018 DAHLIA R Primary DAHLIA R Kashiflucinda Bennettzeinab BARKESDOB: Insurance:MEDICARE BARKESDOB: [facility] [id number] [facility] Number: [place] Repository [place] [id number] [place] [id number]: Date:Plan Name: [id number] () 05/08/2018 DAHLIA R Primary DAHLIA R [facility] [id number] Insurance:MEDICARE [facility]K [facility] [place] [facility] Repository [place], [place] Number: [id number]: [phone]) [id number] [phone] (HP) Date: 12/28/2017 DAHLIA R Primary DAHLIA R Kashiflucinda Bennettzeinab BARKDOB: Insurance:MEDICARE BARKESDOB: [facility] [id number] [place] [address] Number: [place] Repository [place], [place] [id number] [place] [id number]: Date:Plan Name: [id number] ()
== END 2018-08-06 15:20 | disposition home or self-care (01) ==
LOC: MEDOUTP 14:25 → MS2 14:27
PROVIDERS: Referring Provider Internal Medicine Infectious Disease; Visit Provider Internal Medicine Infectious Disease
DX: K65.1 Peritoneal abscess (principal)
CPT/HCPCS: 96365; A4216

== ENCOUNTER 2018-08-07 13:49 | Outpatient (CLI) | payer SELFPAY ==
[2018-07-26 13:51] VITALS: BMI 24.3
[2018-08-05 14:13] VITALS: BMI 24.3
[2018-08-07] MEDS: 0.9% NaCl PICC Flush IV ×3 (14:07→15:40)
[2018-08-07 14:13] VITALS: BP 134/76; PULSE 81; RESP 18; TEMP 37.5; O2SAT 97
--- OUTSIDE RECORDS SUMMARY | 2018-11-09 13:29 | XMS RPT_ITS ---
:1970 Author Organization OHIP Support Name Relationship Address Phone NILDA MARINOT Unavailable [address] [place] [address] + [place] [address] BROWN, DINAH Unavailable Unavailable + D Unavailable Unavailable Unavailable BARKES, MARS Unavailable [address] [facility] + [place] [address] BROWN, DINAH Unavailable Unavailable + D Unavailable Unavailable Unavailable Barkes, Mars Unavailable Unavailable + Brown, Dinah Unavailable Unavailable + BARKES, MARS Unavailable [address] + [place] [address] BROWN, DINAH Unavailable Unavailable + D Unavailable Unavailable Unavailable BARKES, MARS Unavailable [address] + [place] [address] BROWN, DINAH Unavailable Unavailable + D Unavailable Unavailable Unavailable BARKES, MARS Unavailable [address] + [place] [address] BROWN, DINAH Unavailable Unavailable + D Unavailable Unavailable Unavailable BARKES, MARS Unavailable [address] + [place] [address] BROWN, DINAH Unavailable Unavailable + D Unavailable Unavailable Unavailable Barkes, Mars Unavailable Unavailable + Brown, Dinah Unavailable Unavailable + Barkes, Mars Unavailable Unavailable + Brown, Dinah Unavailable Unavailable + BARKES, MARS Unavailable [address] + [place] [address] BROWN, DINAH Unavailable Unavailable + D Unavailable Unavailable Unavailable BARKES, MARS Unavailable [address] + [place] [address] BROWN, DINAH Unavailable Unavailable + D Unavailable Unavailable Unavailable Barkes, Mars Unavailable Unavailable + Brown, Dinah Unavailable Unavailable + BARKES, MARS Unavailable [address] + [place] [address] BROWN, DINAH Unavailable Unavailable + D Unavailable Unavailable Unavailable BARKES, MARS Unavailable [address] + [place] [address] BROWN, DINAH Unavailable Unavailable + D Unavailable Unavailable Unavailable BARKES, MARS Unavailable [address] + [place] [address] BROWN, DINAH Unavailable Unavailable + D Unavailable Unavailable Unavailable BARKES, MARS Unavailable [address] + [place] [address] BROWN, DINAH Unavailable Unavailable + D Unavailable Unavailable Unavailable BARKES, MARS Unavailable [address] + [place] [address] BROWN, DINAH Unavailable Unavailable + D Unavailable Unavailable Unavailable Barkes, Mars Unavailable Unavailable + Brown, Dinah Unavailable Unavailable + BARKES, MARS Unavailable [address] + [place] [address] BROWN, DINAH Unavailable Unavailable + D Unavailable Unavailable Unavailable BARKES, MARS Unavailable [address] + [place] [address] BROWN, DINAH Unavailable Unavailable + D Unavailable Unavailable Unavailable BARKES, MARS Unavailable [address] + [place] [address] BROWN, DINAH Unavailable Unavailable + D Unavailable Unavailable Unavailable BARKES, MARS Unavailable [address] + [place] [address] BROWN, DINAH Unavailable Unavailable + D Unavailable Unavailable Unavailable BARKES, MARS Unavailable [address] + [place] [address] BROWN, DINAH Unavailable Unavailable + D Unavailable Unavailable Unavailable BARKES, MARS Unavailable [address] + [place] [address] BROWN, DINAH Unavailable Unavailable + D Unavailable Unavailable Unavailable BARKES, MARS Unavailable [address] + [place] [address] BROWN, DINAH Unavailable Unavailable + D Unavailable Unavailable Unavailable BARKES, MARS Unavailable [address] [address] + [place] [address] BROWN, DINAH Unavailable Unavailable + D Unavailable Unavailable Unavailable BARKES, MARS Unavailable [address] + [place] [address] BROWN, DINAH Unavailable Unavailable + D Unavailable Unavailable Unavailable BARKES, MARS Unavailable [address] + [place] [address] BROWN, DINAH Unavailable Unavailable + D Unavailable Unavailable Unavailable BARKES, MARS Unavailable [address] + [place] [address] BROWN, DINAH Unavailable Unavailable + D Unavailable Unavailable Unavailable BARKES, MARS Unavailable [address] + [place] [address] BROWN, DINAH Unavailable Unavailable + D Unavailable Unavailable Unavailable BARKES, MARS Unavailable [address] + [place] [address] BROWN, DINAH Unavailable Unavailable + D Unavailable Unavailable Unavailable BARKES, MARS Unavailable [address] + [place] [address] BROWN, DINAH Unavailable Unavailable + D Unavailable Unavailable Unavailable BARKES, MARS Unavailable [address] + [place] [address] BROWN, DINAH Unavailable Unavailable + D Unavailable Unavailable Unavailable BARKES, MARS Unavailable [address] + [place] [address] BROWN, DINAH Unavailable Unavailable + D Unavailable Unavailable Unavailable BARKES, MARS Unavailable [address] + [place] [address] BROWN, DINAH Unavailable Unavailable + D Unavailable Unavailable Unavailable BARKES, MARS Unavailable [address] + [place] [address] BROWN, DINAH Unavailable Unavailable + D Unavailable Unavailable Unavailable BARKES, MARS Unavailable [address] + [place] [address] BROWN, DINAH Unavailable Unavailable + D Unavailable Unavailable Unavailable BARKES, MARS Unavailable [address] + [place] [address] BROWN, DINAH Unavailable Unavailable + D Unavailable Unavailable Unavailable BARKES, MARS Unavailable [address] + [place] [address] BROWN, DINAH Unavailable Unavailable + D Unavailable Unavailable Unavailable Barkes, Mars Unavailable Unavailable + Brown, Dinah Unavailable Unavailable + Barkes, Mars Unavailable Unavailable + Brown, Dinah Unavailable Unavailable + BARKES, MARS Unavailable [address] + [place] [address] BROWN, DINAH Unavailable Unavailable + D Unavailable Unavailable Unavailable BARKES, MARS Unavailable [address] + [place] [address] BROWN, DINAH Unavailable Unavailable + D Unavailable Unavailable Unavailable BARKES, MARS Unavailable [address] + [place] [address] BROWN, DINAH Unavailable Unavailable + D Unavailable Unavailable Unavailable BARKES, MARS Unavailable [address] + [place] [address] BROWN, DINAH Unavailable Unavailable + D Unavailable Unavailable Unavailable BARKES, MARS Unavailable [address] + [place] [address] BROWN, DINAH Unavailable Unavailable + D Unavailable Unavailable Unavailable BARKES, MARS Unavailable [address] + [place] [address] BROWN, DINAH Unavailable Unavailable + D Unavailable Unavailable Unavailable Barkes, Mars Unavailable Unavailable + Brown, Dinah Unavailable Unavailable + BARKES, MARS Unavailable [address] + [place] [address] BROWN, DINAH Unavailable Unavailable + D Unavailable Unavailable Unavailable BARKES, MARS Unavailable [address] + [place] [address] BROWN, DINAH Unavailable Unavailable + D Unavailable Unavailable Unavailable BARKES, MARS Unavailable [address] + [place] [address] BROWN, DINAH Unavailable Unavailable + D Unavailable Unavailable Unavailable Barkes, Mars Unavailable Unavailable + Brown, Dinah Unavailable Unavailable + BARKES, MARS Unavailable [address] + [place] [address] BROWN, DINAH Unavailable Unavailable + D Unavailable Unavailable Unavailable BARKES, MARS Unavailable [address] [place] [address] ST + [place] [address] BROWN, DINAH Unavailable Unavailable + D Unavailable [...] Unavailable [address] + [place], [place] [id number] BARKES, MARS Unavailable Unavailable Unavailable NOT GIVEN Unavailable Unavailable Unavailable BARKES, LANCE Unavailable [address] + [place], [place] [id number] BARKES, MARS Unavailable Unavailable Unavailable NOT GIVEN Unavailable Unavailable Unavailable Care Team Providers Name Role KATIA Ledbetter Consulting Unavailable Mandapat, Daya Attending Unavailable Mandapat, [...] UNKNOWN Consulting Unavailable TETYUK, PENELOPE Admitting Unavailable TETCharleeUK, PENELOPE Attending Unavailable Jan MCGOWAN Consulting Unavailable NICK MONTENEGRO Consulting Unavailable TETYUK, PENELOPE Admitting Unavailable TETYUK, PENELOPE Attending Unavailable NICK MONTENEGRO R Consulting Unavailable Dena Moore Attending Unavailable PROVIDER, [...] SOURCE 09/01/2018 Admitting Hypokalemia / Hashiguchi, Active [facility] Diagnosis E87.6(ICD-10) [facility] Repository 08/30/2018 Admitting 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, 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 I, Mic[facility] System unspecified / Repository G90.50(ICD-10) 08/30/2018 Admitting Personal history of [place], Active [facility] Diagnosis nicotine dependence [facility] System / Z87.891(ICD-10) Repository 08/30/2018 Admitting Fibromyalgia / [place], Active [facility] Diagnosis M79.7(ICD-10) [facility] Repository 08/30/2018 Admitting Hypothyroidism, [place], Active [facility] Diagnosis unspecified / [facility] System E03.9(ICD-10) Repository 08/30/2018 Admitting Presence of coronary [place], Active [facility] Diagnosis angioplasty implant [place] [facility] and graft / Repository Z95.5(ICD-10) 08/30/2018 [...] 08/04/2018 Admitting Other ascites / Hashiguchi, Active [facility] Diagnosis R18.8(ICD-10) [facility] Repository 08/04/2018 Admitting Abnormal findings on Hashiguchi, Active [facility] Diagnosis dx imaging of oth [facility] body structures / Repository R93.89(ICD-10) 08/04/2018 Admitting Abnormal findings on Hashiguchi, Active [facility] Diagnosis dx imaging of prt [facility] digestive tract / Repository R93.3(ICD-10) 08/04/2018 Admitting Candidiasis of vulva Hashiguchi, Active [facility] Diagnosis and vagina / [facility] B37.3(ICD-10) Repository 08/04/2018 Admitting Crohn's disease of Hashiguchi, Active [facility] Diagnosis both small and lg [facility] int w oth Repository complication / K50.818(ICD-10) 07/26/2018 Admitting Encntr for f/u exam Hashiguchi, Active [facility] Diagnosis aft trtmt for cond [facility] oth than malig Repository neoplm / Z09(ICD-10) 07/17/2018 Admitting Peritoneal abscess / Zaugg, Active [facility] Diagnosis K65.1(ICD-10) System Repository 07/17/2018 Admitting Urinary tract Zaugg, Active [facility] Diagnosis infection, site not System specified / Repository N39.0(ICD-10) 07/17/2018 Admitting Hypomagnesemia / Zaugg, Active [facility] Diagnosis E83.42(ICD-10) System Repository 07/17/2018 Admitting Cutaneous abscess of Zaugg, Active [facility] Diagnosis abdominal wall / System L02.211(ICD-10) Repository 07/17/2018 Admitting Sepsis, unspecified Zaugg, Active [facility] Diagnosis organism / System A41.9(ICD-10) Repository 07/17/2018 Admitting Crohn's disease of Zaugg, Active [facility] Diagnosis both small and large System intestine w abscess Repository / K50.814(ICD-10) 07/17/2018 Admitting Postprocedural Zaugg, Active [facility] Diagnosis hypothyroidism / System E89.0(ICD-10) Repository 07/17/2018 Admitting Adverse effect of Zaugg, Active [facility] Diagnosis unsp systemic System antibiotic, init Repository encntr / T36.95XA(ICD-10) 07/17/2018 Admitting senior care (current) Zaugg, Active [facility] Diagnosis use of systemic System steroids / Repository Z79.52(ICD-10) 07/02/2018 Admitting Crohn's disease, Oscar, [facility] unspecified, with [facility] abscess / Repository K50.914(ICD-10) 07/02/2018 Admitting Unspecified severe Oscar, [facility] Diagnosis protein-calorie [facility] malnutrition / Repository E43(ICD-10) 07/02/2018 Admitting Athscl heart disease Oscar, [facility]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 Repository / I25.10(ICD-10) 07/02/2018 Admitting Body mass index Oscar, Active [facility] Diagnosis (BMI) 24.0-24.9, [facility] System adult / Repository Z68.24(ICD-10) 07/02/2018 Admitting Abnormal weight loss Oscar, Active [facility] Diagnosis / R63.4(ICD-10) [facility] Repository 07/02/2018 Admitting Elevated white blood Oscar, [facility] Diagnosis cell count, [facility] System unspecified / Repository D72.829(ICD-10) 07/02/2018 Admitting Anemia, unspecified Oscar, Active [facility] Diagnosis / D64.9(ICD-10) [facility] System Repository 07/01/2018 Active Unknown / CORI, Active [place] UNK(Unknown) [facility] Other [place] Repository 05/08/2018 Admitting Unknown / NA Active [facility] diagnosis UNK(Unknown) Hospital Repository 12/28/2017 Admitting Vomiting, OMLEY, 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 unspecified / DO [facility] R1110(ICD-10) Hospital Repository 12/28/2017 Principle Noninfective OMLEY, 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 gastroenteritis and DO [facility] colitis, unspecified Hospital / K529(ICD-10) Repository 12/28/2017 Secondary Crohn's disease, OMLEY, 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 unspecified, without DO [facility] complications / Hospital K5090(ICD-10) Repository 12/28/2017 Secondary Atherosclerotic OMLEY, 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[facility] chitimacha 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 Repository angina pectoris / I2510(ICD-10) 12/28/2017 Secondary Presence of coronary OMLEY, 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 angioplasty implant DO [facility] and graft / Hospital Z955(ICD-10) Repository PROCEDURES PROCEDURES No Procedure Records FoundRESULTS RESULTS RF URETHROCYSTOGRAPHY Observed: 09/07/2018 Status: F Source: [facility] VOIDING 9:51 AM SYSTEM REPOSITORY Patient Name: DAHLIA MARINO Fluoroscopy Exam Date/Time 09/05/2018 10:14:33 EST Exam RF Urethrocystography Voiding Ordering Physician MD DEUCE, MICHELINE Gaspar Accession Number [id number] CTP4 Codes 32473 () Reason For Exam concern for rectovaginal [...] 09/06/2018 Status: F Source: [place] 2:00 PM [facility] REPOSITORY TYPE CODE TESTS RESULT [...] Lymph 1.55 Performed By: #### L100.0100 #### [facility] [address] [place], [address] COMPREHENSIVE METABOLIC Collected: 09/06/2018 Status: F Source: [facility] 2:00 PM [facility] REPOSITORY TYPE CODE TESTS RESULT [...] Normal 8 Performed By: #### L500.4050 #### [facility] [address] [place], [address] ED PROVIDER NOTE Observed: 09/01/2018 Status: F Source: [facility] 1:20 PM SYSTEM REPOSITORY This patient presented [...] W/DIFF, AUTOMATED Collected: 08/31/2018 Status: F Source: [place] 2:15 PM [facility] REPOSITORY TYPE CODE TESTS RESULT [...] Lymph 2.02 Performed By: #### L100.0100 #### [facility] [address] [place], [place], [address] COMPREHENSIVE METABOLIC Collected: 08/31/2018 Status: F Source: [facility] 2:15 PM [facility] REPOSITORY TYPE CODE TESTS RESULT [...] 8 GAP Performed By: #### L500.4050 #### [facility] [address] [place] [address]. [place], [address] Observed: 08/30/2018 Status: F Source: [facility] SURGICAL PATHOLOGY 8:22 AM SYSTEM REPOSITORY AS71-511 [facility] PATHOLOGY AND LABORATORY MEDICINE [address] [place] [address] FINAL SURGICAL PATHOLOGY REPORT NAME: DAHLIA MARINO : 1970 48 Y F BILLING NO.: [id number] LOCATION: 1XEO PROCEDURE 08/30/2018 DATE: SURGEON: MICHELINE [...] characteristics determined by the clinical laboratories of [facility]. They have not been cleared by [...] negativity on decalcified specimens. Professional Performing Location: [address] [address]. DEPARTMENT OF PATHOLOGY AND LABORATORY MEDICINE [place], [place] [address] RF SMALL BOWEL W/ Observed: 08/25/2018 Status: F Source: [facility] SERIAL FILMS 2:30 PM SYSTEM REPOSITORY Patient Name: DAHLIA MARINO Fluoroscopy Exam Date/Time 08/25/2018 13:09:43 EST Exam RF Small Bowel w/ Serial Films Ordering Physician MD DEUCE, MICHELINE Gaspar Accession Number [id number] CTP4 Codes 20940 () Reason For Exam Crohn's Disease, rt. [...] 08/24/2018 Status: F Source: [place] 2:23 PM [facility] REPOSITORY TYPE CODE TESTS RESULT OUT [...] Lymph 2.16 Performed By: #### L100.0100 #### [facility] [address] [place], [address] COMPREHENSIVE METABOLIC Collected: 08/24/2018 Status: F Source: [facility] 2:23 PM [facility] REPOSITORY TYPE CODE TESTS RESULT [...] GAP 10 Performed By: #### L500.4050 #### [facility] [address] [place], [address] CBC W/DIFF, AUTOMATED Collected: 08/17/2018 Status: F [...] Lymph 1.59 Performed By: #### L100.0100 #### [facility] [address] [place], [place], [address] COMPREHENSIVE METABOLIC Collected: 08/17/2018 Status: F Source: [place] 1:44 PM [facility] REPOSITORY TYPE CODE TESTS RESULT [...] GAP 8 Performed By: #### L500.4050 #### [facility] [address] [place], [address] CBC W/DIFF, AUTOMATED Collected: 08/10/2018 Status: F Source: [place] 2:22 PM [facility] REPOSITORY TYPE CODE TESTS RESULT [...] Lymph 2.17 Performed By: #### L100.0100 #### [facility] [address] [place], [address] COMPREHENSIVE METABOLIC Collected: 08/10/2018 Status: F Source: [facility] 2:22 PM [facility] REPOSITORY TYPE CODE TESTS RESULT [...] Normal 8 Performed By: #### L500.4050 #### [facility] [address] [facility] [place], [address] CT ABDOMEN/PELVIS W/ Observed: 08/04/2018 Status: F Source: [facility] CONTRAST 1:01 PM SYSTEM REPOSITORY Patient Name: DAHLIA MARINO CT Exam Date/Time 08/04/2018 12:09:[address] Abdomen/Pelvis w/ IV Contrast (IV Onl Ordering Physician MD MARCELA, JESSE Accession Number [id number] CPT4 Codes 67995 (CT Abdomen/Pelvis w/ IV Contrast (IV Onl), Q9967 (CT ISOVUE 370MG/[id number]) Reason For Exam RLQ phlegmon vs abscess [...] METABOLIC PANEL Collected: 08/04/2018 Status: F Source: [facility] 9:09 AM SYSTEM REPOSITORY TYPE CODE TESTS [...] Calcium 8.8 Performed By: #### BMP3 #### [facility] [address] [address] CBC W/DIFF, AUTOMATED Collected: 08/03/2018 Status: F Source: [place] 2:13 PM [facility] REPOSITORY TYPE CODE TESTS RESULT [...] Lymph 1.92 Performed By: #### L100.0100 #### [facility] [address] [place], [place], [address] COMPREHENSIVE METABOLIC Collected: 08/03/2018 Status: F Source: [facility] 2:13 PM [facility] REPOSITORY TYPE CODE TESTS RESULT [...] 9 GAP Performed By: #### L500.4050 #### [facility] [address] [place] [address]. [place], [place], [id number] CBC W/DIFF, AUTOMATED Collected: 07/27/2018 Status: F Source: [place] 2:06 PM [facility] REPOSITORY TYPE CODE TESTS RESULT [...] Lymph 1.89 Performed By: #### L100.0100 #### [facility] [address] [place], [place], [address] COMPREHENSIVE METABOLIC Collected: 07/27/2018 Status: F Source: [facility] 2:06 PM [facility] REPOSITORY TYPE CODE TESTS RESULT [...] Normal 7 Performed By: #### L500.4050 #### [facility] [address] [place], [address] CBC W/DIFF, AUTOMATED Collected: 07/21/2018 Status: F Source: [place] 2:35 PM [facility] REPOSITORY TYPE CODE TESTS RESULT [...] Lymph 1.50 Performed By: #### L100.0100 #### [facility] [address] [place], [address] COMPREHENSIVE METABOLIC Collected: 07/21/2018 Status: F Source: [facility] 2:35 PM [facility] REPOSITORY TYPE CODE TESTS RESULT [...] GAP 4 Performed By: #### L500.4050 #### [facility] [address] [place] [address]. [place], [place], [address] CR CHEST PORTABLE Observed: 07/20/2018 Status: F Source: [facility] 6:44 PM SYSTEM REPOSITORY Patient Name: DAHLIA MARINO Diagnostic Radiology Exam Date/Time 07/20/2018 16:55:27 EST Exam CR Chest Portable Ordering Physician DO PINON KATHRYN C Accession Number [id number] CPT4 Codes 76141 () Reason For Exam Line placement Report [...] DISCHARGE SUMMARY Observed: 07/20/2018 Status: F Source: [facility] 1:18 PM SYSTEM REPOSITORY Attestation signed by [...] (bowel resections x8), hypothyroidism, FM. Presented to [facility] ED on 07/17/18 with worsening abdominal pain. Patient was admitted to [facility] ED in 07/10, discharged 07/04/18. [...] follow up with her GI doctor in [place], urged her to set up a follow up appointment soon after discharge. ID placed infusion orders for center in [place] with an appointment to start tomorrow. PROCEDURES: PICC placement CONSULTANTS: Interventional Radiology General Surgery Gastrointestinal Infectious Disease DISCHARGE MEDICATIONS: Dahlia Marino Home Medication Instructions MARLYN:[id number] Printed on:07/20/18 9212 Medication Information calcium-vitamin D (OSCAL) 250-125 MG-UNIT [...] Complexity: follow up within 7-14 calendar days (40514) [x] Severe Complexity: follow up within 7 calendar days (53514) FOLLOW UP TESTING, PENDING RESULTS OR REFERRALS AT TRANSITIONAL CARE VISIT: CT of abdomen after 2-3 weeks of abx [x] Yes [] No RECOMMENDED NEXT STEPS: Please follow up with Dr. Lang[place] [facility] [place]26[place]. Please follow up with your GI doctor in [place]. Please follow up with Dr. Micheline Tripathi of general surgery at [phone] as soon as possible for a follow up appointment in two weeks . DISPOSITION: Home Follow up with Dr. Langston [place] [facility] [place] 10[place]26/2018. INSTRUCTIONS TO MA/SW: [...] frame. TIFERON Collected: 07/20/2018 Status: F Source: [facility] 11:02 AM SYSTEM REPOSITORY TYPE CODE TESTS RESULT OUT OF REFERENCE UNITS RANGE LAB QTF Negative NA Quantiferon Negative Performed By: #### QTF #### [facility] [address] [id number] HEMOGRAM Collected: 07/20/2018 Status: F Source: [facility] 4:25 AM SYSTEM REPOSITORY TYPE CODE TESTS [...] By: #### HEMOG, BMP3M, MG3, PHOS3 #### [facility] [address] [place] [phone] BASIC METABOLIC PANEL Collected: 07/20/2018 Status: F Source: [facility] 4:25 AM SYSTEM REPOSITORY TYPE CODE TESTS [...] By: #### HEMOG, BMP3M, MG3, PHOS3 #### [facility] [address] [place] [address] MAGNESIUM Collected: 07/20/2018 Status: F Source: [facility] 4:25 AM SYSTEM REPOSITORY TYPE CODE TESTS RESULT OUT OF REFERENCE UNITS RANGE LAB MG3 1.6-2.3 mg/dL Low Magnesium 1.5 Performed By: #### HEMOG, BMP3M, MG3, PHOS3 #### [facility] [address] PHOSPHORUS Collected: 07/20/2018 Status: F Source: [facility] 4:25 AM SYSTEM REPOSITORY TYPE CODE TESTS RESULT OUT OF RANGE REFERENCE UNITS LAB PHOS3 2.5-4.5 mg/dL Normal Phosphorus 4.3 Performed By: #### HEMOG, BMP3M, MG3, PHOS3 #### [facility] [address] [place] [address] Observed: 07/19/2018 Status: F Source: [facility] CLOSTRIDIUM DIFFICILE 10:53 PM SYSTEM REPOSITORY PCR [...] be submitted. Performed By: #### CDPCR #### [facility] [address] [address] HEMOGRAM Collected: 07/19/2018 Status: F Source: [facility] 5:29 AM SYSTEM REPOSITORY TYPE CODE TESTS [...] By: #### HEMOG, BMP3M, MG3, PHOS3 #### [facility] [address] [place] [phone] BASIC METABOLIC PANEL Collected: 07/19/2018 Status: F Source: [facility] 5:29 AM SYSTEM REPOSITORY TYPE CODE TESTS [...] By: #### HEMOG, BMP3M, MG3, PHOS3 #### [facility] [address] [place] [phone] MAGNESIUM Collected: 07/19/2018 Status: F Source: [facility] 5:29 AM SYSTEM REPOSITORY TYPE CODE TESTS RESULT OUT OF RANGE REFERENCE UNITS LAB MG3 1.6-2.3 mg/dL Normal Magnesium 1.6 Performed By: #### HEMOG, BMP3M, MG3, PHOS3 #### [facility] [address] [address] PHOSPHORUS Collected: 07/19/2018 Status: F Source: [facility] 5:29 AM SYSTEM REPOSITORY TYPE CODE TESTS RESULT OUT OF RANGE REFERENCE UNITS LAB PHOS3 2.5-4.5 mg/dL Normal Phosphorus 3.4 Performed By: #### HEMOG, BMP3M, MG3, PHOS3 #### [facility] [employer] [address] [address] HEMOGRAM Collected: 07/18/2018 Status: F Source: [facility] 5:02 AM SYSTEM REPOSITORY TYPE CODE TESTS [...] By: #### HEMOG, BMP3M, MG3, PHOS3 #### [facility] [employer] [address] [address] BASIC METABOLIC PANEL Collected: 07/18/2018 Status: F Source: [facility] 5:02 AM SYSTEM REPOSITORY TYPE CODE TESTS [...] By: #### HEMOG, BMP3M, MG3, PHOS3 #### [facility] [address] [place] [address] MAGNESIUM Collected: 07/18/2018 Status: F Source: [facility] 5:02 AM SYSTEM REPOSITORY TYPE CODE TESTS RESULT OUT OF RANGE REFERENCE UNITS LAB MG3 1.6-2.3 mg/dL Normal Magnesium 1.6 Performed By: #### HEMOG, BMP3M, MG3, PHOS3 #### [facility] [address] [place] [phone] PHOSPHORUS Collected: 07/18/2018 Status: F Source: [facility] 5:02 AM SYSTEM REPOSITORY TYPE CODE TESTS RESULT OUT OF RANGE REFERENCE UNITS LAB PHOS3 2.5-4.5 mg/dL Normal Phosphorus 3.5 Performed By: #### HEMOG, BMP3M, MG3, PHOS3 #### [facility] [address] [place] [phone] BASIC METABOLIC PANEL Collected: 07/17/2018 Status: F Source: [facility] 2:00 PM SYSTEM REPOSITORY TYPE CODE TESTS [...] Calcium 7.5 Performed By: #### BMP3 #### [facility] [address] [place], [place] LACTIC ACID Collected: 07/17/2018 Status: F Source: [facility] 11:25 AM SYSTEM REPOSITORY TYPE CODE TESTS RESULT OUT OF REFERENCE UNITS RANGE LAB LACT3 0.7-2.0 mmol/L Low Lactic Acid < 0.5 Performed By: #### LACT3 #### [facility] [address] [place], [place] Observed: 07/17/2018 Status: F Source: [facility] CULTURE URINE 8:28 AM SYSTEM REPOSITORY Order Comment: Specimen Source Comment:Urine, clean catch CULTURE URINE --> Status: F Normal urogenital elham present. Performed By: #### C/UR #### [facility] [place], [place] CT ABDOMEN/PELVIS W/ Observed: 07/17/2018 Status: F Source: [facility] CONTRAST 5:09 AM SYSTEM REPOSITORY Patient Name: DAHLIA MARINO CT Exam Date/Time 07/17/2018 05:32:[address] Abdomen/Pelvis w/ IV Contrast (IV Onl Ordering Physician MD JAMIR, IRENE Gray Accession Number [id number] CPT4 Codes 37104 (CT Abdomen/Pelvis w/ IV Contrast (IV Onl), Q9967 (CT ISOVUE 370MG/[id number]) Reason For Exam recent abscess due to [...] 07/17/2018 5:09 Observed: 07/17/2018 Status: F Source: [facility] CULTURE BLOOD 4:57 AM SYSTEM REPOSITORY Order Comment: Specimen Source Comment:Blood CULTURE BLOOD --> Status: F No growth at 5 days. Performed By: #### C/BLD #### [facility] [address] [place] [phone] Observed: 07/17/2018 Status: F Source: [facility] CULTURE BLOOD (TWO) 4:01 AM SYSTEM REPOSITORY Order Comment: Specimen Source Comment:Blood CULTURE BLOOD (Two) --> Status: F No growth at 5 days. Performed By: #### C/BLT #### [facility] [address] [place] [phone] HEMOGRAM W/ AUTODIFF Collected: 07/17/2018 Status: F Source: [facility] 4:00 AM SYSTEM REPOSITORY TYPE CODE TESTS [...] LIPA4, LFT3, BMP3, CRP2, ESR, PCAL #### [facility] [address] [place] [phone] LACTIC ACID Collected: 07/17/2018 Status: F Source: [facility] 4:00 AM SYSTEM REPOSITORY TYPE CODE TESTS RESULT OUT OF RANGE REFERENCE UNITS LAB LACT3 0.7-2.0 mmol/L Normal Lactic Acid 1.2 Performed By: #### HEMDF, LACT3, LIPA4, LFT3, BMP3, CRP2, ESR, PCAL #### [facility] [address] [place] [phone] LIPASE Collected: 07/17/2018 Status: F Source: [facility] 4:00 AM SYSTEM REPOSITORY TYPE CODE TESTS RESULT OUT OF RANGE REFERENCE UNITS LAB LIPA4 23-300 U/L Normal Lipase 38 Performed By: #### HEMDF, LACT3, LIPA4, LFT3, BMP3, CRP2, ESR, PCAL #### [facility] [address] [place] [phone] HEPATIC FUNCTION Collected: 07/17/2018 Status: F Source: [facility] 4:00 AM SYSTEM REPOSITORY TYPE CODE TESTS [...] LIPA4, LFT3, BMP3, CRP2, ESR, PCAL #### [facility] [address] [place] [phone] BASIC METABOLIC PANEL Collected: 07/17/2018 Status: F Source: [facility] 4:00 AM SYSTEM REPOSITORY TYPE CODE TESTS [...] LIPA4, LFT3, BMP3, CRP2, ESR, PCAL #### [facility] [address] [place] [address] C-REACTIVE PROTEIN Collected: 07/17/2018 Status: F Source: [facility] 4:00 AM SYSTEM REPOSITORY TYPE CODE TESTS RESULT OUT OF REFERENCE UNITS RANGE LAB 2CRP 0.0-6.0 mg/L High C-Reactive 11.6 Protein Result Comment: . Performed By: #### HEMDF, LACT3, LIPA4, LFT3, BMP3, CRP2, ESR, PCAL #### [facility] [address] [place] [phone] SED RATE Collected: 07/17/2018 Status: F Source: [facility] 4:00 AM SYSTEM REPOSITORY TYPE CODE TESTS RESULT OUT OF RANGE REFERENCE UNITS LAB ESR 0-20 mm/h High Sed Rate 27 Performed By: #### HEMDF, LACT3, LIPA4, LFT3, BMP3, CRP2, ESR, PCAL #### [facility] [address] [place] [phone] PROCALCITONIN Collected: 07/17/2018 Status: F Source: [facility] 4:00 AM SYSTEM REPOSITORY TYPE CODE TESTS RESULT OUT OF REFERENCE UNITS RANGE LAB PRO <0.10 ng/mL Procalcitonin Normal < 0.10 LAB INT3 NA Interpretation See Below Result Comment: PCT <0.50 = Low risk of severe sepsis and/or septic shock. PCT >2.00 = High risk of severe sepsis and/or septic shock. Performed By: #### HEMDF, LACT3, LIPA4, LFT3, BMP3, CRP2, ESR, PCAL #### [facility] [address] [place] [phone] ED PROVIDER NOTE Observed: 07/17/2018 Status: F Source: [facility] 2:30 AM SYSTEM REPOSITORY [facility] EMERGENCY DEPT eMERGENCY dEPARTMENT eNCOUnter Pt Name: Dahlia Marino Birthdate 1970 Date of evaluation: 07/17/2018 Provider: Irene Marlow MD Chief Complaint: No chief complaint on file. [place]: Dahlia Marino is a 48 y.o. female [...] antibiotics in the hospital. She is from [place] but was referred here because the hospital [...] by myself in the absence of a software writer) none Chart review shows recent radiographs: Ct Abdomen Pelvis W Contrast Result Date: 07/02/2018 Patient Name: DAHLIA MARINO ---CT--- Exam Date/Time 07/02/2018 07:47:[address] Abdomen/Pelvis w/ IV Contrast (IV Onl Ordering Physician MD IVIS, MPH, MICHELINE Accession Number [id number] CPT4 Codes 16693 (CT Abdomen/Pelvis w/ IV Contrast (IV Onl), Q9967 (CT ISOVUE 370MG/[id number]&ML&[id number]) Reason For Exam Crohns flare, known abscess [...] PROVIDER NOTE Observed: 07/17/2018 Status: F Source: [facility] 2:30 AM SYSTEM REPOSITORY Emergency Department Encounter Location: [facility] EMERGENCY DEPT Patient: Dahlia Marino [...] # 1.4 1.0 - 4.3 10*3/uL Absolute [place] # 1.2 (H) 0.0 - 0.8 10*3/uL [...] eGFR >60.0 >60 mL/min EGFR IF NonAfrican Indonesian >60.0 >60 mL/min Calcium 8.1 (L) 8.4 [...] Physician MD JAMIR, IRENE Gray Accession Number [id number] CPT4 Codes 15513 (CT Abdomen/Pelvis w/ IV Contrast (IV Onl), Q9967 (CT ISOVUE 370MG/[id number]&[id number]) Reason For Exam recent abscess due to [...] are mis-transcribed.) Bon Mercedes MD Acute Care [facility] Bon Mercedes MD 07/17/18 0551 DISCHARGE SUMMARY Observed: 07/04/2018 Status: F Source: [facility] 11:29 AM SYSTEM REPOSITORY Attestation signed by [...] x8, on gregory), hypothyroidism, fibromyalgia presented to [facility] w/ progressive 6 week hx of abdominal pain. She was first seen at [facility] in [place], [place] 6wks prior to admission for abdominal [...] in the urine. CT abdomen done at [facility] (07/01/18) which showed a complex inflammatory collection/mass in anterior RLQ abscess. Patient was then transferred to [facility] the same day for further management and a second opinion. Patient and then requested transfer to [facility] as they have had family [...] DISCHARGE MEDICATIONS: Dahlia Marino Home Medication Instructions MARLYN:[id number] Printed on:07/05/18 1001 Medication Information adalimumab (HUMIRA) 40 MG/0.8ML injection [...] Complexity: follow up within 7-14 calendar days (53146) [] Severe Complexity: follow up within 7 calendar days (38797) FOLLOW UP TESTING, PENDING RESULTS OR REFERRALS [...] W/ AUTODIFF Collected: 07/04/2018 Status: F Source: [facility] 5:08 AM SYSTEM REPOSITORY TYPE CODE TESTS [...] #### HEMDF, BMP3M, MG3, PHOS3, LFT3 #### [facility] [address] [place] [address] BASIC METABOLIC PANEL Collected: 07/04/2018 Status: F Source: [facility] 5:08 AM SYSTEM REPOSITORY TYPE CODE TESTS [...] #### HEMDF, BMP3M, MG3, PHOS3, LFT3 #### [facility] [address] [place] [phone] MAGNESIUM Collected: 07/04/2018 Status: F Source: [facility] 5:08 AM SYSTEM REPOSITORY TYPE CODE TESTS RESULT OUT OF RANGE REFERENCE UNITS LAB MG3 1.6-2.3 mg/dL Normal Magnesium 1.8 Performed By: #### HEMDF, BMP3M, MG3, PHOS3, LFT3 #### [facility] [address] [place] [phone] PHOSPHORUS Collected: 07/04/2018 Status: F Source: [facility] 5:08 AM SYSTEM REPOSITORY TYPE CODE TESTS RESULT OUT OF RANGE REFERENCE UNITS LAB PHOS3 2.5-4.5 mg/dL Normal Phosphorus 3.8 Performed By: #### HEMDF, BMP3M, MG3, PHOS3, LFT3 #### [facility] [address] [place] [phone] HEPATIC FUNCTION Collected: 07/04/2018 Status: F Source: [facility] 5:08 AM SYSTEM REPOSITORY TYPE CODE TESTS [...] #### HEMDF, BMP3M, MG3, PHOS3, LFT3 #### [employer] [address] [place] [phone] HEMOGRAM W/ AUTODIFF Collected: 07/03/2018 Status: F Source: [facility] 2:31 AM SYSTEM REPOSITORY TYPE CODE TESTS [...] By: #### HEMDF, MG3, PHOS3, BMP3M #### [facility] [address] [place] [address] MAGNESIUM Collected: 07/03/2018 Status: F Source: [facility] 2:31 AM SYSTEM REPOSITORY TYPE CODE TESTS RESULT OUT OF RANGE REFERENCE UNITS LAB MG3 1.6-2.3 mg/dL Normal Magnesium 2.1 Performed By: #### HEMDF, MG3, PHOS3, BMP3M #### [facility] [place] PHOSPHORUS Collected: 07/03/2018 Status: F Source: [facility] 2:31 AM SYSTEM REPOSITORY TYPE CODE TESTS RESULT OUT OF RANGE REFERENCE UNITS LAB PHOS3 2.5-4.5 mg/dL Normal Phosphorus 3.8 Performed By: #### HEMDF, MG3, PHOS3, BMP3M #### [facility] [address] [place] [address] BASIC METABOLIC PANEL Collected: 07/03/2018 Status: F Source: [facility] 2:31 AM SYSTEM REPOSITORY TYPE CODE TESTS [...] By: #### HEMDF, MG3, PHOS3, BMP3M #### [facility] [address] [place] [address] URINALYSIS,MACRO Collected: 07/03/2018 Status: F Source: [facility] 2:23 AM SYSTEM REPOSITORY TYPE CODE TESTS RESULT OUT OF REFERENCE UNITS RANGE LAB APPUR Clear NA Appearance Cloudy LAB COLUR Lt. Yellow NA Color Yellow LAB USG 1.005-1.030 NA Specific Normal Sulphur,Urine 1.015 LAB UPH 5.0-8.0 NA pH,Urine Normal [...] 250 Performed By: #### UAMAC, UAMIC #### [facility] [address] [place] [address] URINALYSIS,MICROSCOPIC Collected: Status: F Source: [employer] 07/03/2018 2:23 AM HEALTH SYSTEM REPOSITORY TYPE CODE TESTS RESULT OUT OF REFERENCE UNITS RANGE LAB WBCU 0-5 /[HPF] 26 WBC,Urine - 50 LAB RBCU 0-2 /[HPF] 11 RBC,Urine - 25 LAB EPIU 3-5 /[HPF] 0 Epithelial Cells - 2 LAB LILLIAM Negative NA Bacteria Many (51-100) LAB AMPH Negative NA Amorphous Moderate Phosphates (6-50) Performed By: #### UAMAC, UAMIC #### [facility] [place] [address] Observed: 07/03/2018 Status: F Source: [facility] CULTURE URINE 2:23 AM SYSTEM REPOSITORY Order Comment: Specimen Source Comment:Urine, clean catch CULTURE URINE --> Status: F No growth (<1,000 CFU/ml). Performed By: #### C/UR #### [facility] [address] [address] [address] ABDOMEN/PELVIS W/ Observed: 07/02/2018 Status: F Source: [facility] CONTRAST 8:06 AM SYSTEM REPOSITORY Patient Name: DAHLIA MARINO CT Exam Date/Time 07/02/2018 07:47:[address] Abdomen/Pelvis w/ IV Contrast (IV Onl Ordering Physician MD IVIS, MPH, MICHELINE Reyes Number [id number] CPT4 Codes 36097 (CT Abdomen/Pelvis w/ IV Contrast (IV Onl), Q9967 (CT ISOVUE 370MG/[id number]) Reason For Exam Crohns flare, known abscess [...] 8:06 URINALYSIS,MACRO Collected: 07/02/2018 Status: F Source: [facility] 1:59 AM SYSTEM REPOSITORY TYPE CODE TESTS RESULT OUT OF REFERENCE UNITS RANGE LAB APPUR Clear NA Appearance Clear LAB COLUR Lt. Yellow NA Color P. Yellow LAB USG 1.005-1.030 NA Specific Normal Sulphur,Urine 1.010 LAB UPH 5.0-8.0 NA pH,Urine Normal [...] 25 Performed By: #### UAMAC, UAMIC #### [facility] [employer] [address] [address] URINALYSIS,MICROSCOPIC Collected: Status: F Source: [employer] 07/02/2018 1:59 AM HEALTH SYSTEM REPOSITORY TYPE CODE TESTS RESULT OUT OF REFERENCE UNITS RANGE LAB WBCU 0-5 /[HPF] 11 WBC,Urine - 25 LAB RBCU 0-2 /[HPF] 3 RBC,Urine - 5 LAB EPIU 3-5 /[HPF] 3 Epithelial Cells - 5 LAB LILLIAM Negative NA Bacteria Moderate (6-50) Performed By: #### UAMAC, UAMIC #### [facility] [address] [place] [address] Observed: 07/02/2018 Status: F Source: [employer] BLOOD 1:45 AM SYSTEM REPOSITORY Order Comment: Specimen Source Comment:Blood CULTURE BLOOD --> Status: F No growth at 5 days. Performed By: #### C/BLD #### [facility] [address] [place] [address] Observed: 07/02/2018 Status: F Source: [employer] BLOOD (TWO) 1:45 AM SYSTEM REPOSITORY Order Comment: Specimen Source Comment:Blood CULTURE BLOOD (Two) --> Status: F No growth at 5 days. Performed By: #### C/BLT #### [employer] [address] HEMOGRAM W/ AUTODIFF Collected: 07/02/2018 Status: F Source: [facility] 1:37 AM SYSTEM REPOSITORY TYPE CODE TESTS [...] LACT3, TSH5, CMP3, MG3, FT4M, TROPN #### [facility] [address] [place] [phone] PROTHROMBIN TIME Collected: 07/02/2018 Status: F Source: [facility] 1:37 AM SYSTEM REPOSITORY TYPE CODE TESTS [...] LACT3, TSH5, CMP3, MG3, FT4M, TROPN #### [facility] [address] [place] [phone] LACTIC ACID Collected: 07/02/2018 Status: F Source: [facility] 1:37 AM SYSTEM REPOSITORY TYPE CODE TESTS RESULT OUT OF REFERENCE UNITS RANGE LAB LACT3 0.7-2.0 mmol/L Low Lactic Acid 0.6 Performed By: #### HEMDF, PT, LACT3, TSH5, CMP3, MG3, FT4M, TROPN #### [facility] [address] [place] [phone] THYROID STIM. Collected: 07/02/2018 Status: F Source: [facility] HORMONE 1:37 AM SYSTEM REPOSITORY TYPE CODE TESTS RESULT OUT OF REFERENCE UNITS RANGE LAB TSH5 0.465-4.680 u[IU]/mL Low Thyroid Stim. 0.175 Hormone Performed By: #### HEMDF, PT, LACT3, TSH5, CMP3, MG3, FT4M, TROPN #### [facility] [address] [place] [phone] COMP METABOLIC PANEL Collected: 07/02/2018 Status: F Source: [facility] 1:37 AM SYSTEM REPOSITORY TYPE CODE TESTS [...] LACT3, TSH5, CMP3, MG3, FT4M, TROPN #### [facility] [address] [place] [phone] MAGNESIUM Collected: 07/02/2018 Status: F Source: [facility] 1:37 AM SYSTEM REPOSITORY TYPE CODE TESTS RESULT OUT OF REFERENCE UNITS RANGE LAB MG3 1.6-2.3 mg/dL Low Magnesium 1.5 Performed By: #### HEMDF, PT, LACT3, TSH5, CMP3, MG3, FT4M, TROPN #### [facility] [address] [place] [phone] FREE T4 Collected: 07/02/2018 Status: F Source: [facility] 1:37 AM SYSTEM REPOSITORY TYPE CODE TESTS RESULT OUT OF RANGE REFERENCE UNITS LAB FT4M 0.78-2.19 ng/dL Normal Free T4 1.87 Performed By: #### HEMDF, PT, LACT3, TSH5, CMP3, MG3, FT4M, TROPN #### [facility] [address] [place] [address] TROPONIN I Collected: 07/02/2018 Status: F Source: [facility] 1:37 AM SYSTEM REPOSITORY TYPE CODE TESTS RESULT OUT OF RANGE REFERENCE UNITS LAB TROP4 0.000-0.034 ng/mL Normal Troponin I < 0.012 Result Comment: 0.046 - 0.400 = Indeterminate > 0.400 = Consider Myocardial Injury Performed By: #### HEMDF, PT, LACT3, TSH5, CMP3, MG3, FT4M, TROPN #### [facility] [address] [place] [address] ED PROVIDER NOTE Observed: 07/02/2018 Status: F Source: [facility] 12:02 AM SYSTEM REPOSITORY Emergency Department Encounter [...] the past few weeks, was seen at [facility]. yesterday, CT there showed an intra-abdominal [...] otherwise acutely negative except as in the [place]. Past History Past Medical History: Diagnosis Date [...] # 1.6 1.0 - 4.3 10*3/uL Absolute [place] # 1.4 (H) 0.0 - 0.8 10*3/uL [...] eGFR >60.0 >60 mL/min EGFR IF NonAfrican Indonesian >60.0 >60 mL/min Calcium 8.0 (L) 8.4 [...] UA P. Yellow Lt. Yellow NA Specific Sulphur, Urine 1.010 1.005 - 1.030 NA pH, [...] me Rhythm: normal sinus Rate: normal, 83 Yale: normal Ectopy: none Conduction: normal ST Segments: [...] [facility] only got the CAT scan [...] PROVIDER NOTE Observed: 07/02/2018 Status: F Source: [facility] 12:02 AM SYSTEM REPOSITORY Emergency Department Encounter [facility] EMERGENCY DEPT Patient: Dahlia Marino : 1970 Date of Evaluation: 07/02/2018 ED Provider: BLAIR HOLDEN CNP As the [id number], I performed a medical screening history and [...] abscess below her liver. He was transferred [facility] without their knowledge. Family states they thought she was coming here. He was at [facility] day and that concerns about [...] NURSING PROG Observed: 07/01/2018 Status: COMPLETED Source: [place] 11:34 PM [facility] REPOSITORY HNO ID: [id number] Author: Meme (Rn) EZEKIEL Ramsay Service: Emergency [...] this. I personally spoke with Winter Paez HEAD BANQUET WAITER/WAITRESS, requested further order to check labs including [...] bleeding. PROGRESS Observed: 07/01/2018 Status: COMPLETED Source: [place] 11:15 PM [facility] REPOSITORY HNO ID: [id number] Author: Jeannine ([place]) BLAIR Womack.CL[place]TON Service: (none) Author Type: Nurse Practitioner Type: Progress Notes Filed: 07/01/2018 11:51 PM Note Text: CTBS for patient requesting to leave AMA. Nursing pipe fitter supervisor on floor speaking with patient and [...] of testing. Family is taking patient to [facility] ED at this time. Pt is alert and oriented x 3, capable of making decisions. AMA paperwork filled out and signed at bedside. Jeannine Womack CNP NURSING PROG Observed: 07/01/2018 Status: COMPLETED Source: [place] 9:25 PM [facility] OTHER [facility] REPOSITORY HNO ID: [id number] Author: Ester (Rn) EZEKIEL Kamara Service: (none) [...] AND PELVIS Observed: 07/01/2018 Status: F Source: [facility] WITH CONTRAST 8:57 PM HEALTH SYSTEM REPOSITORY Performed at [facility] APPROVED BY: Zia Maurer MD [...] advised. CONSULT Observed: 07/01/2018 Status: COMPLETED Source: [place] 4:02 PM [facility] REPOSITORY [facility] ID: [id number] Author: Misty Mcdonald Service: General Surgery Author [...] returned and got worse. Patient presented to [place] [facility] ED where CT Abd/Pelvis showed a possible [...] CONSULT PROG Observed: 07/01/2018 Status: COMPLETED Source: [place] 3:57 PM [facility]IN[facility] OTHER CAMPUS REPOSITORY O ID: [id number] Author: Kamran Colon Service: Gastroenterology Author Type: [...] ago per patient) who presented to the [place] ED for abdominal pain. She stated she [...] she called EMS who transferred her to [facility]. In the ED her abdominal CT revealed possible abscess vs neoplasms so she was transferred to [facility]. She denied melena, hematochezia, hematemesis, [...] about 3-4 years ago (no record in [facility]). FUNCTIONAL STATUS: Independent PAST MEDICAL [...] patient 3-4 years ago (no record in [facility]) Assessment AND Plan: Repeat Abdominal [...] patient 3-4 years ago (no record in [facility]) Assessment AND Plan: Need records from [facility] [facility] Dr. Loomis in [place]. SIGNATURE: Kamran Colon APRN.CNP PATIENT NAME: Dahlia Marino DATE: July 01, 2018 TIME: 3:57 PM PAGER: [email or web address] Observed: 07/01/2018 Status: COMPLETED Source: [place] 3:47 PM CLINIC OTHER CAMPUS REPOSITORY HNO ID: [id number] Author: Argentina Zuluaga RD (Ld) Service: Nutrition [...] gm protein per serving and vanilla Boost [facility] QD, to provide 530 kcal and [...] nutritional status Reason for Assessment: Consult from SENIOR SOFTWARE ENGINEERING MANAGER for patient with 28 lbs weight loss in 4 weeks. Per HPI: This is a 47 year old female with PMH of crohns, hypothyroid, wallace, ape, liver sx d/t infection who presents to the [facility] from [facility]. Pt called EMS and had them [...] ENSURE CLEAR MIXED PEREZ Supplement 2: BOOST [facility] VANILLA Lines and Drains: Peripheral 07/01/18 [...] Admitted) 07/01/18 0700 - 07/02/18 0659 Shift [id number] 8738-9487 24 Hour Total [id number] 7355-8914 9469-2441 24 Hour Total I N T A [...] July 01, 2018 TIME: 4:25 PM PAGER: [id number] CEA Collected: 07/01/2018 Status: F Source: [facility] 1:55 PM HEALTH SYSTEM REPOSITORY TYPE CODE TESTS RESULT OUT OF RANGE REFERENCE UNITS LAB CEA(LOINC) 0.0-3.0 ng/mL CEA 2.5 Result Comment: The reference range shown is for adult non-smokers. The range for smokers is 0-5.0 Testing performed by Chemiluminescence LOCI. Performed By: #### CEA #### [place] [address] MAGNESIUM BLOOD Collected: 07/01/2018 Status: F Source: [facility] 1:55 PM HEALTH SYSTEM REPOSITORY TYPE CODE TESTS RESULT OUT OF REFERENCE UNITS RANGE LAB MAG(LOINC) 1.6-2.6 mg/dL Magnesium Blood 1.6 Performed By: #### MAG #### [place] [address] Observed: 07/01/2018 Status: F Source: [facility] CULT BLOOD 12:00 PM HEALTH SYSTEM REPOSITORY Test performed at [facility] No growth Performed By: #### C_BLO #### [place] [address] HEMOGRAM Collected: 07/01/2018 Status: F Source: [facility] 11:55 AM HEALTH SYSTEM REPOSITORY TYPE [...] MPV 9.8 Performed By: #### CBC1 #### [place] [address] LACTIC ACID Collected: 07/01/2018 Status: F Source: [facility] 11:55 AM HEALTH SYSTEM REPOSITORY TYPE CODE TESTS RESULT OUT OF REFERENCE UNITS RANGE LAB LAC(LOINC) 0.4-2.0 mEq/L Lactic Acid 0.4 Performed By: #### LAC #### [place] [address] PHOSPHORUS BLOOD Collected: 07/01/2018 Status: F Source: [facility] 11:55 AM HEALTH SYSTEM REPOSITORY TYPE CODE TESTS RESULT OUT OF REFERENCE UNITS RANGE LAB PHOS(LOINC 2.5-4.9 mg/dL ) Phosphorus Blood 3.8 Performed By: #### PHOS #### [place] [address] CRP Collected: 07/01/2018 Status: F Source: [facility] 11:55 AM HEALTH SYSTEM REPOSITORY TYPE CODE TESTS RESULT OUT OF RANGE REFERENCE UNITS LAB CRP3(LOINC) 0.00-0.30 mg/dL High CRP 8.04 Performed By: #### CRP3 #### [facility] [address] [place] [address] COMPREHENSIVE PANEL Collected: 07/01/2018 Status: F Source: [facility] 11:55 AM HEALTH SYSTEM REPOSITORY TYPE [...] Gap 12 Performed By: #### P14 #### [place] [address] MDRD GFR Collected: 07/01/2018 Status: F Source: [facility] 11:[facility] SYSTEM REPOSITORY TYPE CODE TESTS RESULT OUT OF RANGE REFERENCE UNITS LAB GFRFN(LOINC >60mL/min/1.73m ) 2 eGFR >60 Result Comment: If the patient is , multiply the result by 1.210. Performed By: #### GFR #### [facility] [address] [place] [address] PROTIME Collected: 07/01/2018 Status: F Source: [place] [id number] [place] [address] SYSTEM REPOSITORY TYPE CODE TESTS RESULT OUT OF REFERENCE UNITS RANGE LAB PTI(LOINC) 9.7-13.0 sec Prothrombin Time 11.7 LAB INR(LOINC) 0.90-1.30 INR 1.14 Result Comment: Note: Reference Range Change Vitamin K Antagonist (VKA) Therapeutic Range: INR 2 to 3 (Target INR of 2.5) Note: For patients treated with VKA drugs, such as warfarin, the [employer] 2012 Guideline recommends [...] 70: 252-289 Performed By: #### PT #### [place] [address] ACTIVATED PTT Collected: 07/01/2018 Status: F Source: [facility] 11:[address] [place] [address] SYSTEM REPOSITORY TYPE CODE TESTS RESULT OUT [...] laboratory APTT reagent in use throughout the [facility]. Performed By: #### APTT #### [facility] [address] [place], [place] [address] SED RATE Collected: 07/01/2018 Status: F Source: [facility] 11:55 AM HEALTH SYSTEM REPOSITORY TYPE CODE TESTS RESULT OUT OF RANGE REFERENCE UNITS LAB ESR(LOINC) 0-20 mm/hr High Sed Rate 38 Performed By: #### ESR #### [facility] [address] [place], [place] [address] HISTORY PHYSICAL Observed: 07/01/2018 Status: COMPLETED Source: [facility] 11:14 AM CLINIC OTHER CAMPUS REPOSITORY HNO ID: [id number] Author: Meryl Hogan Service: Hospital Medicine Author Type: Nurse Practitioner Type: HANDP Filed: 07/01/2018 11:50 AM Note Text: Attestation signed by Jose Altamirano at 2018 5:50 PM (Updated) I have personally seen and examined the patient. I agree with the SENIOR SOFTWARE ENGINEERING MANAGER's note with following addition. Ms Marino, a [...] few days. Normal BM (reported diarrhea to [facility]), no nausea. Was treated with flagyl for a week a month ago. Last c scope > 5 years ago and last surgery > 5 years ago. She presented to [facility] where she was noted to have leukocytosis [...] 2 weeks ago), under the care of security operations specialist ? Dr Bender 4. Hx of multiple [...] sx d/t infection who presents to the [facility] from [facility]. Pt called EMS and had them [...] July 01, 2018 TIME: 11:15 AM PAGER: [phone] CT ABDOMEN/PELVIS W Observed: 07/01/2018 Status: F [facility] AM [place] [address] Patient: DAHLIA MARINO Phone#: : 1970 Age: 47 Gender: F Pt. Type: ER Account: [id number] Location: 2 Ordering: DOROTEO TABOR Exam Date: 07/01/2018/0:28 Family Phys: MARLO Pj LANG Charge Code: 551496 Physician: [place] Order #: [id number] DLP Dose#: 9.80 PROCEDURE: CT ABDOMEN/PELVIS WITH [...] 47 Gender: F Pt. Type: ER Account: [id number] Location: 052 Ordering: DOROTEO TABOR Exam Date: 07/01/2018/0:28 Family Phys: MARLO LANG Charge Code: 410834 Physician: [place] Order #: [id number] DLP Dose#: 9.80 ABDOMINAL WALL: Normal. No [...] 8:50 URINALYSIS Collected: 07/01/2018 Status: F Source: [facility] 12:34 AM [facility] REPOSITORY TYPE CODE TESTS RESULT [...] Urobilinog(LOINC) NORMAL: NORMAL Urobilinog NORM LAB Sp Sulphur(LOINC) NORMAL: 1.010-1.030 Sp Sulphur 1.015 LAB Nitrite(LOINC) NORMAL: NEGATIVE Nitrite NEG [...] LAB Yeast(LOINC) Yeast NONE Performed By: #### [id number] #### [facility] [place],[address] [place] [address] Observed: 06/30/2018 Status: F Source: [facility] CULTURE BLOOD 11:25 PM [facility] REPOSITORY CULTURE BLOOD CULTURE BLOOD SET: 2 of 2 24HOUR REPORT NEGATIVE 48HOUR REPORT NEGATIVE 72HOUR REPORT NEGATIVE M I C R O B I O L O G Y R E P O R T FINAL Antimicrobial Susceptibility and Organism Identification Report Specimen Number : [id number] Requested : 06/30/18 Specimen Source : BLOOD Collected : 06/30/18 23:25 [place] [facility] [place] : Emergency Room Received : 06/30/18 23:25 Requesting Physician : christina Patient/Specimen Tests and Comments Specimen Comments FINAL REPORT: No Growth at 5 Days Tech : Source : BLOOD ID # : [id number] FINAL Report Date : / / : Collected : 06/30/18 23:25 07/06/18.1142.BKO. 07/06/18.1142.BKO.COMPLETE Performed By: #### [id number] #### [facility] [place],[address] [place] [address] CBC Collected: 06/30/2018 Status: F Source: [facility] 10:45 PM [facility] REPOSITORY TYPE CODE TESTS RESULT [...] x10EE3/U L Neut # High 10.00 LAB [place] #(LOINC) 0.20 - 1.00 x10EE3/U L [place] # High 1.30 LAB EO #(LOINC) 0.00 - 0.50 x10EE3/U L EO # 0.00 LAB Baso #(LOINC) 0.00 - 0.10 x10EE3/U L Baso # 0.10 LAB MANUAL DIFF([facility]) MANUAL DIFF N/A LAB MORPHOLOGY(INC ) MORPHOLOGY N/A Result Comment: {CD] Performed By: #### [id number] #### [place] [address] LACTATE Collected: 06/30/2018 Status: F Source: [facility] 10:45 PM [facility] REPOSITORY TYPE CODE TESTS RESULT OUT OF REFERENCE UNITS RANGE LAB LACTATE(MESSI 4.5 - 18.0 mg/dL [place]) Low LACTATE 4.3 Performed By: #### [id number] #### [place] [address] CMP WITH EGFR Collected: 06/30/2018 Status: F Source: [facility] 10:45 PM [facility] REPOSITORY TYPE CODE TESTS RESULT [...] OF AGE AND OLDER. Performed By: #### [id number] #### [place] [id number] LIPASE Collected: 06/30/2018 Status: F Source: [facility] 10:45 [facility] REPOSITORY TYPE CODE TESTS RESULT OUT OF REFERENCE UNITS RANGE LAB LIPASE(LOIN 18.0 - 51.0 U/L C) LIPASE 18.0 Performed By: #### [id number] #### [place] [id number] TROPONIN Collected: 06/30/2018 Status: F Source: [facility] 10:45 [facility] REPOSITORY TYPE CODE TESTS RESULT [...] such as heterophile antibodies). Performed By: #### [id number] #### [facility] [place],[address] [place] [address] TSH Collected: 06/30/2018 Status: F Source: [facility] 10:45 PM [facility] REPOSITORY TYPE CODE TESTS RESULT OUT OF RANGE REFERENCE UNITS LAB TSH(LOINC) 0.34 - 5.60 uIU/ml Low TSH 0.17 Performed By: #### [id number] #### [place] [id number] Observed: 06/30/2018 Status: F Source: [facility] CULTURE BLOOD 10:45 [facility] REPOSITORY CULTURE BLOOD CULTURE BLOOD SET: 1 of 2 24HOUR REPORT NEGATIVE 48HOUR REPORT NEGATIVE 72HOUR REPORT NEGATIVE M I C R O B I O L O G Y R E P O R T FINAL Antimicrobial Susceptibility and Organism Identification Report Specimen Number : [id number] Requested : 06/30/18 Specimen Source : BLOOD Collected : 06/30/18 22:45 [place] [facility] [place] : Emergency Room Received : 06/30/18 22:45 Requesting Physician : christina Patient/Specimen Tests and Comments Specimen Comments FINAL REPORT: No Growth at 5 Days Tech : Source : BLOOD ID # : [id number] FINAL Report Date : / / : Collected : 06/30/18 22:45 07/06/18.1142.BKO. 07/06/18.1142.BKO.COMPLETE Performed By: #### [id number] #### [facility] [place],[address] [place] [address] EMERGENCY REPORT Observed: 06/30/2018 Status: F Source: [facility] 9:55 PM [facility] EMERGENCY ROOM REPORT NAME ACCOUNT SEX AGE ADMIT DISCHARGE PT MED. RECORD# NUMBER DATE DATE TYPE DAHLIA MARINO [id number] F 47 06/30/18 07/01/18 3 R [id number] ROOM: ER DATE OF : 1970 DICTATING [...] first contacted our surgical service here at [facility], who due to this patient's complicated medical history suggested transfer to [facility] in [place]. I then contacted [place], who suggested contacting the [facility] due to her complicated history. I then contacted [facility], who was agreeable with accepting the patient. The patient was monitored in our Emergency Department throughout the night and then transferred in stable condition. Dictated By: Doroteo Tabor DO 07/01/18 07:00 JOB #: [id number] Transcribed By: jen 07/01/18 09:44 Electronically signed by: E-SIGN: Doroteo Tabor D.O. 07/08/18 06:49 Page 2 of 2 DAHLIA MARINO Emergency Room Report EMERGENCY REPORT Observed: 06/30/2018 Status: F Source: [facility] 9:55 PM [facility] EMERGENCY ROOM REPORT NAME ACCOUNT SEX AGE ADMIT DISCHARGE PT MED. RECORD# NUMBER DATE DATE TYPE DAHLIA MARINO [id number] F 47 06/30/18 07/01/18 3 R [id number] ROOM: ER DATE OF : 1970 DICTATING [...] Lore Mujica DO 07/01/18 08:22 JOB #: [id number] Transcribed By: jen 07/01/18 10:00 Electronically signed by: E-Sign: LORE MUJICA MD 07/12/18 12:00 Page 1 of 1 DAHLIA MARINO Emergency Room Report EMERGENCY DEPARTMENT Observed: 05/11/2018 Status: F Source: [facility] REPORT 4:14 PM [facility] [place] [address] HEALTH INFORMATION MANAGEMENT EMERGENCY DEPARTMENT REPORT Patient: DAHLIA MARINO KATIA TAMEZ D.O. [id number] F Status: DEP ER ED Date of Service: 05/08/18 CHIEF COMPLAINT A 47-year-old female. Chief complaint: Vaginal problem. HISTORY OF PRESENT ILLNESS The patient says she has had a recurrent yeast infection. She has had a discolored discharge. She has had a hysterectomy. 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 No other complaints. No abdominal pain, just [...] I am going to refer her to OUTBOUND CALL CENTER REPRESENTATIVE for followup. <Electronically signed by KATIA TAMEZ D.O.> 05/12/18 0538 KATIA TAMEZ D.O. cc: KATIA TAEMZ D.O. << Signature on File>> Reported By: KATIA TAMEZ D.O. Signed By: KATIA TAMEZ D.O. Tests performed at: [address] [address] ED PROV NOTE Observed: 05/11/2018 Status: COMPLETED Source: [facility] 4:14 PM CLINIC MAIN CAMPUS REPOSITORY HNO ID: [id number] Author: Katia Tamez Service: (none) Author Type: Physician Type: ED Provider Notes Filed: 06/23/2018 9:00 PM Note Text: [place] [address] HEALTH INFORMATION MANAGEMENT EMERGENCY DEPARTMENT REPORT Patient: DAHLIA MARINO KATIA TAMEZ D.O. [id number] F Status: [facility] ER ED Date of Service: 05/08/18 CHIEF COMPLAINT A 47-year-old female. Chief complaint: Vaginal problem. HISTORY OF PRESENT ILLNESS The patient says she has had a recurrent yeast infection. She has had a discolored discharge. She has had a hysterectomy. 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 No other complaints. No abdominal pain, just [...] I am going to refer her to OUTBOUND CALL CENTER REPRESENTATIVE for followup. <Electronically signed by KATIA TAMEZ D.O.> 05/12/18 0538 KATIA TAMEZ D.O. cc: KATIA TAMEZ D.O. << Signature on File>> Reported By: KATIA TAMEZ D.O. Signed By: KATIA TAMEZ D.O. Tests performed at: [address] [address] Observed: 05/08/2018 Status: F Source: [facility] WET PREP 3:09 AM HOSPITAL REPOSITORY WET PREP FEW EPITHELIAL CELLS MANY WBC'S FEW RBC'S NEGATIVE FOR YEAST NEGATIVE FOR TRICHOMONAS Performed By: #### [id number] #### [facility] [address] [place] [address] EMERGENCY REPORT Observed: 01/09/2018 Status: F Source: [facility] 7:13 PM [facility] REPOSITORY [facility] EMERGENCY ROOM REPORT NAME ACCOUNT SEX AGE ADMIT DISCHARGE PT MED. RECORD# NUMBER DATE DATE TYPE DAHLIA MARINO [id number] F 47 12/28/17 12/28/17 3 R [id number] ROOM: ER DATE OF : 1970 DICTATING [...] the coronary arteries by Dr. Haque in [place]. She states that she has had an [...] sinus mechanism without an evidence of acute TX. Rate was 93 and this was done [...] Mor Douglass DO 12/28/17 06:44 JOB #: [id number] Transcribed By: sp 12/29/17 05:54 Electronically signed by: E-SIGN MOR RAFAT ARSHAD 01/09/18 19:10 Page 2 of 2 NED DAHLIA R Emergency Room Report CBC Collected: 12/28/2017 Status: F Source: [facility] 4:10 AM [facility] REPOSITORY TYPE CODE TESTS RESULT [...] x10EE3/U L Neut # High 10.70 LAB [place] #(LOINC) 0.20 - 1.00 x10EE3/U L [place] # 0.50 LAB EO #(LOINC) 0.00 - 0.50 x10EE3/U L EO # 0.10 LAB Baso #(LOINC) 0.00 - 0.10 x10EE3/U L Baso # 0.00 LAB MANUAL DIFF(LOINC) MANUAL DIFF N/A LAB MORPHOLOGY(LOINC ) MORPHOLOGY N/A Result Comment: {CD] Performed By: #### [id number] #### [facility] [place],[address] [place] [address] CMP WITH EGFR Collected: 12/28/2017 Status: F Source: [facility] 4:10 AM [facility] REPOSITORY TYPE CODE TESTS RESULT [...] OF AGE AND OLDER. Performed By: #### 252896 #### [place] [address] LIPASE Collected: 12/28/2017 Status: F Source: [facility] 4:10 [facility] REPOSITORY TYPE CODE TESTS RESULT OUT OF REFERENCE UNITS RANGE LAB LIPASE(LOIN 18.0 - 51.0 U/L C) LIPASE 25.0 Performed By: #### [id number] #### [place] [address] TROPONIN Collected: 12/28/2017 Status: F Source: [facility] 4:10 [facility] REPOSITORY TYPE CODE TESTS RESULT [...] such as heterophile antibodies). Performed By: #### [id number] #### [place] [id number] ALLERGIES ALLERGIES DATE TYPE / NAME / CODE REACTION SEVERITY SOURCE CODE 08/29/2018 Drug doxycycline/[id number] Other Unknown [place] Allergy/41 748(RXNORM) [facility] 9746726([facility]) Repository 08/29/2018 Drug erythromycin Hives Unknown [place] Allergy/41 base/E729270507(RXN Community 7787534(SN ORM) [facility]) Repository 08/29/2018 Drug metronidazole/F0060 Other Unknown [place] Allergy/41 37192(RXNORM) [facility] 0821411([facility]) Repository 07/01/2018 DRUG DOXYCYCLINE SHORTNESS OF [place] INGREDI/41 Clinic Other 2163495([facility]) Repository 07/01/2018 DRUG METRONIDAZOLE INTOLERANCE [place] INGREDI/41 Clinic Other 7097591([facility]) Repository 07/01/2018 DRUG AZITHROMYCIN SHORTNESS OF [place] INGREDI/41 Clinic Other 5225232([facility]) Repository NG/6548820 DOXYCYCLINE [facility] 06([facility]) Repository NG/1138999 METRONIDAZOLE [facility] 06([facility]OM[facility]) Repository NG/1525724 AZITHROMYCIN [facility] 06(SNOMED [facility]) Repository Drug DOXYCYCLINE/5001750 Moderate [place] Allergy/41 0(RXNORM) ([facility] 3969928(SN Modifier) [facility]) (Qualifier Repository Value) Drug FLAGYL/86142941(RXN Moderate [place] Allergy/41 ORM) ([facility] 7925776(SN Modifier) [facility]) (Qualifier Repository Value) Drug ERYTHROMYCIN/822989 Moderate [place] Allergy/41 26(RXNORM) ([facility] 8465349(SN Modifier) [facility]) (Qualifier Repository Value) ENCOUNTERS ENCOUNTERS ADMIT/DISCHARGE ACCOUNT NUMBER ADMITTING ENCOUNTER LOCATION SOURCE CLASS 09/06/[id number] [facility] ding:MEDOUTP Repository 09/05/[id number] [facility] ding:MEDOUTP Repository 09/05/2018 [id number] [facility] Repository 09/04/2018/09/04/[id number] ding:MEDOUTP Repository 09/03/2018/09/03/[id number] ding:MEDOUTP Repository 09/02/2018 [id number] [facility] Repository 09/01/2018 [id number] Ambulatory [place] [facility] ding[facility] Repository 09/01/2018 [id number] Emergency [facility] [place] [address] ERRoom: System [id number]: Repository [id number] 09/01/2018 [id number] [facility] Repository 08/31/2018 [id number] Ambulatory [place] [facility] ding[facility]P Repository 08/30/2018 [id number] Ambulatory Samara [place] [facility] ding:[facility]P Repository 08/30/2018 [id number] [facility] Repository 08/29/2018 [id number] Ambulatory [place] [facility] ding:[facility]P Repository 08/28/2018/08/28/19 [id number] Ambulatory [place] 19 [facility] ding:[facility]P Repository 08/27/2018/08/27/19 [id number] Ambulatory Samara [place] 19 [facility] ding:[facility]P Repository 08/26/2018 [id number] Ambulatory [place] [facility] ding:MED[facility]P Repository 08/25/2018 [id number] Ambulatory [place] [facility] ding:MED[facility]P Repository 08/25/2018 [id number] [facility] Repository 08/24/2018 [id number] Ambulatory [place] [facility] ding:MED[facility]P Repository 08/23/2018/08/23/19 [id number] Ambulatory [place] Samara 19 [facility] ding:MED[facility]P Repository 08/22/2018 [id number] Ambulatory [place] [facility] ding:MED[facility]P Repository 08/21/2018/08/21/20 [id number] Ambulatory [place] Samara 18 [facility] ding:MED[facility]P Repository 08/20/2018/08/20/20 [id number] Ambulatory Samara [place] 18 [facility] ding:MED[facility]P Repository 08/19/2018 [id number] [facility] [place] [facility] Repository 08/18/2018 [id number] Ambulatory [place] [facility] ding:[facility] Repository 08/17/2018 [id number] Ambulatory [place] [facility] ding:[facility]P Repository 08/16/2018/08/16/20 [id number] Ambulatory Samara [place] 18 [facility] ding:[facility]P Repository 08/15/2018 [id number] Ambulatory [place] [facility] ding:[facility]P Repository 08/14/2018/08/14/20 [id number] Ambulatory Samara [place] 18 [facility] ding:[facility]P Repository 08/13/2018/08/13/20 [id number] Ambulatory Samara [place] 18 [facility] ding:MED[facility]P Repository 08/12/2018 [id number] Ambulatory [place] [facility] ding:MED[facility]P Repository 08/11/2018 [id number] Ambulatory [place] [facility] ding:MED[facility]P Repository 08/10/2018 [id number] Ambulatory [place] [facility] ding:MED[facility]P Repository 08/09/2018 [id number] Ambulatory [place] [facility] ding:MED[facility]P Repository 08/08/2018 [id number] Ambulatory Samara [place] [facility] ding:[facility]P Repository 08/07/2018/08/07/20 [id number] Ambulatory Samara [place] 18 [facility] ding:[facility]P Repository 08/06/2018/08/06/20 [id number] Ambulatory [place] Samara 18 [facility] ding:MED[facility]P Repository 08/05/2018 [id number] Ambulatory Sam[place] [facility] ding:[facility]P Repository 08/04/2018 [id number] Ambulatory Sam[place] [facility] ding:MED[facility]P Repository 08/04/2018 [id number] [facility] Repository 08/04/2018 [id number] [facility] Repository 08/03/2018 [id number] [facility] [place] [facility] Repository 08/02/2018 [id number] [facility] [place] [facility] Repository 08/01/2018 [id number] [facility] ding:[facility]P Repository 07/31/2018/07/31/20 [id number] Ambulatory [place]mar[place] [address] [place] [address] [facility] ding:MEDOUTP Repository 07/30/2018/07/30/20 [id number] Ambulatory [place] [address] [place] [address] [facility] ding:MEDOUTP Repository Room: [facility] 07/29/2018 [id number] [facility] ding:MED[facility]P Repository 07/29/2018 [id number] [facility] Repository 07/28/2018 [id number] [facility] [place] [facility] ding:[facility]P Repository 07/27/2018 [id number] [facility] [place] [facility] ding:[facility]P Repository 07/26/2018 [id number] [facility] Repository 07/26/2018 [id number] [facility] Repository 07/25/2018 [id number] [facility] ding:[facility]P Repository 07/24/2018/07/24/20 [id number] Ambulatory Samara Samaar [address] [place] [address] [facility] ding:MEDOUTP Repository 07/23/2018/07/23/20 [id number] Ambulatory Samara Samara [address] [place] [address] [facility] ding:MEDOUTP Repository 07/22/2018 [id number] [facility] ding:[facility]P Repository 07/21/2018 [id number] [facility] ding:[facility]P Repository 07/17/2018 [id number] [facility] 4NRoom: System [id number]: Repository [id number] 07/02/2018 [id number] [facility] Encounter 6WRoom: System [id number]: Repository [id number] 07/01/2018/07/02/20 [id number] TETYUK, Inpatient [facility] 18 PENELOPE Encounter [facility] MEDICAL Repository Candie nRoom: 7121Bed: 07/01/2018/07/02/20 [id number] TETY, Inpatient [place] 18 P[place] Encounter Clinic Other [place] Repository 06/30/2018/07/01/20 [id number] CHRISTINA, Emergency Buildin[address] [place] [address] 18 DOROTEO D Room: ERBed: [facility] Repository 05/08/2018/05/08/20 [id number] Emergency UNIBuilding: [address] Repository 12/28/2017/12/29/19 [id number] RAFAT, Emergency Buildin[address] [place] [address] 18 MOR DO Room: ERBed: [facility] Repository PAYERS PAYERS ENCOUNTER GUARANTOR 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 SOURCE 09/06/2018 DAHLIA Hathaway Primary Insurance:SELF NOT [facility]IVENUNK [facility] Number: Effective [place] Date:2018-08-30 Repository [id number]: () 09/05/2018 DAHLIA R Primary Insurance:SELF NOT GIVENUNK [facility] Number: Effective [place] Date:2018-08-30 Repository 54562Hxm: () 09/05/2018 Dahlia Primary Dahlia NedDOB[facility] Bark[facility]DOB: Insurance:MedicarePoli [id number] System [place] Number: Effective [facility] Date: [place], [place] [address]Wrg: () 09/05/2018 Secondary Dahlia BarkjenyDOB: [facility] Insurance:MedicarePoli [id number] System cy Number: Effective Repository Date: 09/05/2018 Tertiary Dahlia BarkesDOB: [facility] Insurance:Self [id number] System PayPolicy Number: Repository Effective Date: 09/04/2018 DAHLIA R Primary Insurance:SELF NOT GIVENUNK [place] [id number] PAY [facility] Number: Effective [place] Date:2018-08-30 Repository [id number]: (HP) 09/03/2018 DAHLIA R Primary Insurance:SELF NOT GIVENUNK [place] [id number] PAY [facility] Number: Effective [place] Date:2018-08-30 Repository 34194Oaq: (HP) 09/02/2018 DAHLIA R Primary Insurance:SELF NOT GIVENUNK [place] [id number] PAY [facility] [place] Date:2018-08-30 Repository 42597Avh: (HP) 09/01/2018 DAHLIA R Primary Insurance:SELF NOT GIVENUNK [place] [id number] PAY [facility] [place]: [place] Date:2018-08-30 Repository 92001Oqv: (HP) 09/01/2018 Dahlia Primary Dahlia [facility]DOB[facility] BarkesDOB: Insurance:MedicarePoli [id number] System cy Number: Effective [facility] Date: [place], [place] [address]Ypy: () 09/01/2018 Secondary Dahlia BarkesDOB: [facility] Insurance:Self [id number] System PayPolicy Number: Repository Effective Date: 09/01/2018 Dahlia Primary Dahlia BarkesDOB: [facility] BarkesDOB: Insurance:MedicarePoli [id number] System cy Number: Effective Repository [place] Date: [place], [place] [address]Xug: (HP) 09/01/2018 Secondary Dahlia BarkesDOB: [facility] Insurance:Self [id number] System PayPolicy Number: Repository Effective Date: 08/31/2018 DAHLIA R Primary Insurance:SELF NOT GIVENUNK [place] [id number] PAY [facility] Number: Effective [facility] Date:2018-08-30 Repository 39858Jgu: (HP) 08/30/2018 DAHLIA R Primary Insurance:SELF NOT GIVENUNK [place] [id number] PAY [facility]: Effective [facility] Date:2018-08-24 Repository 83279Nlo: (HP) 08/30/2018 Dahlia Primary Dahlia MarinoDOB: [facility] BarkesDOB: Insurance:MedicarePoli [id number] System cy Number: Effective [facility] Date: [facility] [place] [address]Kzq: (HP) 08/30/2018 Secondary Dahlia NancieB: [facility] Insurance:Self [id number] System PayPolicy Number: Repository Effective Date: 08/29/2018 DAHLIA R Primary Insurance:SELF NOT GIVENUNK [place] [id number] PAY [facility] Number: Effective [facility] Date:2018-08-24 Repository 91649Zvr: (HP) 08/28/2018 DAHLIA R Primary Insurance:SELF NOT GIVENUNK [place] [id number] PAY [facility]: Effective [facility] Date:2018-08-24 Repository 505[address]Acf: (HP) 08/27/2018 DAHLIA R Primary Insurance:SELF NOT GIVENUNK [place] [id number] PAY [facility] Number: Effective [facility] Date:2018-08-24 Repository 50495Uca: (HP) 08/26/2018 DAHLIA R Primary Insurance:SELF NOT GIVENUNK [place] [id number] PAY [facility] Number: Effective [facility] Date:2018-08-24 Repository 42007Sio: (HP) 08/25/2018 DAHLIA R Primary Insurance:SELF NOT GIVENUNK [place] [id number] PAY [facility]: Effective [facility] Date:2018-08-24 Repository 92645Elo: (HP) 08/25/2018 Dahlia Primary Dahlia MarinoB: [facility] BarkjenyDOB: Insurance:MedicarePoli [id number] System cy Number: Effective [facility] Date: [place], [place] [address]Wcr: (HP) 08/25/2018 Secondary Dahlia MarinoB: [facility] Insurance:Self [id number] System PayPolicy Number: Repository Effective Date: 08/24/2018 DAHLIA R Primary Insurance:SELF NOT GIVENUNK [place] [id number] PAY [facility] Number: Effective [facility] Date:2018-08-22 Repository 11505Glb: (HP) 08/23/2018 DAHLIA R Primary Insurance:SELF NOT GIVENUNK [place] [id number] PAY [facility] Number: Effective [facility]:2018-08-09 Repository 54395Jxy: (HP) 08/22/2018 DAHLIA R Primary Insurance:SELF NOT GIVENUNK [place] [id number] PAY [facility] Number: Effective [facility] Date:2018-08-22 Repository 19042Qdw: (HP) 08/21/2018 DAHLIA R Primary Insurance:SELF NOT GIVENUNK [place] [id number] PAY [facility] Number: Effective [facility] Date:2018-08-09 Repository 38218Xhu: (HP) 08/20/2018 DAHLIA R Primary Insurance:SELF NOT GIVENUNK [place] [id number] PAY [facility] Number: Effective [facility] Date:2018-08-09 Repository 04005Icf: (HP) 08/19/2018 DAHLIA R Primary Insurance:SELF NOT GIVENUNK [place] [id number] PAY [facility] Number: Effective [facility] Date:2018-08-09 Repository 32367Trb: (HP) 08/18/2018 DAHLIA R Primary DAHLIA R [place] [id number] Insurance:MEDICARE A BARKESDOB: [facility] Hospital Number: [id number] [id number] Repository [address]Rab: 330) Date:2018-08-09 [phone] (HP) 08/18/2018 Secondary NOT GIVENUNK [place] Insurance:SELF PAY [facility] Number: Effective Repository Date:2018-08-09 08/17/2018 DAHLIA R Primary DAHLIA R [place] [id number] Insurance:MEDICARE A BARKESDOB: [facility]Va Hospital Number: [id number] [place], [place] [id number] Repository 949[address]Mvi: (716) Date:2018-08-09 [phone] (HP) 08/17/2018 Secondary NOT GIVENUNK [place] Insurance:SELF PAY [facility] Number: Effective Repository Date:2018-08-09 08/16/2018 DAHLIA R Primary DAHLIA R [place] [id number] Insurance:MEDICARE A BARKESDOB: [facility] Number: [id number] [id number] Repository [address]Eue: (330) Date:2018-08-09 [phone] (HP) 08/16/2018 Secondary NOT GIVENUNK [place] Insurance:SELF PAY [facility] Number: Effective Repository Date:2018-08-09 08/15/2018 DAHLIA R Primary Insurance:SELF NOT GIVENUNK [place] [id number] PAY [facility] [place]: Effective [place] Date:2018-08-09 Repository 48916Qur: (HP) 08/14/2018 DAHLIA R Primary Insurance:SELF NOT GIVENUNK [place] [id number] PAY [facility] Number: [place]:2018-08-09 Repository 34095Nys: (HP) 08/13/2018 DAHLIA R Primary Insurance:SELF NOT GIVENUNK [place] [id number] PAY [facility] Number: Effective [facility] Date:2018-08-09 Repository 26764Lhn: () 08/12/2018 DAHLIA R Primary Insurance:SELF NOT GIVENUNK [place] [id number] PAY [facility] Number: Effective [facility] Date:2018-08-09 Repository 71950Jdg: () 08/11/2018 DAHLIA R Primary Insurance:SELF NOT GIVENUNK [place] [id number] PAY [facility] Number: Effective [facility] Date:2018-08-09 Repository 80360Sam: () 08/10/2018 DAHLIA R Primary Insurance:SELF NOT GIVENUNK [place] [id number] PAY [facility] Number: Effective [facility] Date:2018-07-26 Repository 01930Alo: () 08/09/2018 DAHLIA R Primary Insurance:SELF NOT GIVENUNK [place] [id number] PAY [facility] Number: Effective [facility] Date:2018-07-26 Repository 83914Zmg: () 08/08/2018 DAHLIA R Primary Insurance:SELF NOT GIVENUNK [place] [id number] PAY [facility] Number: Effective [facility] Date:2018-07-26 Repository 10040Qdx: () 08/07/2018 DAHLIA R Primary Insurance:SELF NOT GIVENUNK [place] [id number] PAY [facility] Number: Effective [facility] Date:2018-07-26 Repository 01806Pih: () 08/06/2018 DAHLIA R Primary Insurance:SELF NOT GIVENUNK [place] [id number] PAY [facility] Number: Effective [facility] Date:2018-07-26 Repository 50960Mgt: (HP) 08/05/2018 DAHLIA R Primary Insurance:SELF NOT GIVENUNK [place] [id number] PAY [facility] Number: Effective [place]:2018-07-26 Repository 70900Jhn: (HP) 08/04/2018 DAHLIA R Primary Insurance:SELF NOT GIVENUNK [place] [id number] PAY [facility] Number: Effective [place]:2018-07-26 Repository 17031Csa: (HP) 08/04/2018 Dahlia Primary Dahlia BarkesDOB: [facility] BarkesDOB: Insurance:MedicarePoli [id number] System cy Number: Effective [facility] Date: [place], [place] [address]Jep: () 08/04/2018 Secondary Dahlia BarkesDOB: [facility] Insurance:Self [id number] System PayPolicy Number: Repository Effective Date: 08/04/2018 Dahlia Primary Dahlia BarkesDOB: [facility] BarkesDOB: Insurance:MedicarePoli [id number] System cy Number: Effective [facility] Date: [place], [place] [address]Uqr: () 08/04/2018 Secondary Dahlia BarkesDOB: [facility] Insurance:Self [id number] System PayPolicy Number: Repository Effective Date: 08/03/2018 DAHLIA R Primary Insurance:SELF NOT GIVENUNK [place] [id number] PAY [facility] Number: Effective [facility] [place] Date:2018-07-26 Repository 25037Ezv: (HP) 08/02/2018 DAHLIA R Primary Insurance:SELF NOT GIVENUNK [place] [id number] PAY [facility] Number: Effective [facility] [place] Date:2018-07-26 Repository 35912Usl: () 08/01/2018 DAHLIA R Primary DAHLIA R [place] [id number] Insurance:MEDICARE A BARKESDOB: [facility] ONLYPolicy Number: [id number] Landing, [place] [id number] Repository [address]Udc: (330) Date:2018-07-26 [phone] (HP) 08/01/2018 Secondary NOT GIVENUNK [place] Insurance:SELF PAY [facility] Number: Effective Repository Date:2018-07-26 07/31/2018 DAHLIA Hathaway Primary DAHLIA Hathaway [place] [id number] Insurance:MEDICARE A BARKESDOB: [facility] ONLYPolicy Number: [id number] Landing, [place] [id number] Repository [address]Oea: (330) Date:2018-07-26 [phone] (HP) 07/31/2018 Secondary NOT GIVENUNK [place] Insurance:SELF PAY [facility] Number: Effective Repository Date:2018-07-26 07/30/2018 DAHLIA Hathaway Primary DAHLIA Hathaway [place] [id number] Insurance:MEDICARE A BARKESDOB: [facility] Number: [id number] Landing, [place] [id number] Repository 81475Fxs: (330) Date:2018-07-26 [phone] () 07/30/2018 Secondary NOT GIVENUNK [place] Insurance:SELF PAY [facility] Number: Effective Repository Date:2018-07-26 07/29/2018 DAHLIA Hathaway Primary DAHLIA Hathaway Sam[place] [id number] Insurance:MEDICARE A BARKESDOB: [facility] System[facility] Number: [id number] Landing, [place] [id number] Repository [address]Svw: (330) Date:2018-07-26 [phone] (HP) 07/29/2018 Secondary NOT GIVENUNK [place] Insurance:SELF PAY [facility] Number: Effective Repository Date:2018-07-26 07/29/2018 Dahlia iVllagomez BarkesDOB: [facility] BarkesDOB: Insurance:MedicarePoli [id number] System cy Number: Effective Repository [place] Date: [place], [place] [address]Vga: (HP) 07/28/2018 DAHLIA R Primary DAHLIA R [place] [id number] Insurance:MEDICARE A BARKESDOB: [facility] ONLYPolicy Number: [id number] Landing, [place] [id number] Repository [address]Hqx: (330) Date:2018-07-26 [phone] (HP) 07/28/2018 Secondary NOT GIVENUNK [place] Insurance:SELF PAY [facility] Effective Repository Date:2018-07-26 07/27/2018 DAHLIA R Primary Insurance:SELF NOT GIVENUNK [place] [id number] [facility]Y [facility] [place]:2018-07-26 Repository 06506Pww: (HP) 07/26/2018 DAHLIA R Primary DAHLIA R [place] [id number] Insurance:MEDICARE A BARKESDOB: [facility]Va Hospital Number: [id number] Landing, [place] [id number] Repository 92847Xpu: (330) Date:2018-07-26 [phone] (HP) 07/26/2018 Secondary NOT GIVENUNK [place] Insurance:SELF PAY [facility] Number: Effective Repository Date:2018-07-26 07/26/2018 Dahlia Primary Dahlia BarkesDOB: [facility] BarkesDOB: Insurance:MedicarePoli [id number] System cy Number: Effective [facility] Date: [place], [place] [address]Jvu: (HP) 07/26/2018 Secondary Dahlia BarkesDOB: [facility] Insurance:Self [id number] System PayPolicy Number: Repository Effective Date: 07/25/2018 DAHLIA R Primary DAHLIA R [place] [id number] Insurance:MEDICARE A BARKESDOB: [facility] Hospital Number: [id number] Landing, [place] [id number] Repository 163[address]Jiq: (330) Date:2018-07-20 [phone] () 07/25/2018 Secondary NOT GIVENUNK [place] Insurance:SELF PAY [facility] Number: Effective Repository Date:2018-07-20 07/24/2018 DAHLIA R Primary DAHLIA R [place] [id number] Insurance:MEDICARE A BARKESDOB: [facility] Number: [id number] [place] [id number] Repository [address]Aua: (362) Date:2018-07-20 [phone] (HP) 07/24/2018 Secondary NOT GIVENUNK [place] Insurance:SELF PAY [facility] Number: Effective Repository Date:2018-07-20 07/23/2018 DAHLIA R Primary Insurance:SELF NOT GIVENUNK [place] [id number] PAY [facility] [place]: [place]:2018-07-20 Repository 30265Ldz: (HP) 07/22/2018 DHALIA R Primary Insurance:SELF NOT GIVENUNK [place] [id number] PAY [facility] [place]: [place]:2018-07-20 Repository 98136Fdt: (HP) 07/21/2018 DAHLIA R Primary Insurance:SELF NOT GIVENUNK [place] [id number] PAY [facility] Number: [place]:2018-07-20 Repository 93980Ues: (HP) 07/17/2018 Dahlia Primary Dahlia BarkesDOB: [facility] BarkesDOB: Insurance:MedicarePoli [id number] System cy Number: Effective Repository [place] Date: [place], [place] [address]Rip: (HP) 07/02/2018 [facility] Primary Dahlia BarkesDOB: [facility] BarkesDOB: Insurance:MedicarePoli [id number] System cy Number: Effective [facility] Date: [place], [place] [address]Por: (HP) 07/02/2018 Secondary Dahlia BarkesDOB: [facility] Insurance:Self [id number] System PayPolicy Number: Repository Effective Date: 07/01/2018 DAHLIA R [facility] BARKESDOB: Health System APolicy Number: [id number] Repository [place] [id number] [place], [place] Date: [address]Efk: () 06/30/2018 DAHLIA R Primary DAHLIA R Kashiflucinda Bennettzeinab BARKESDOB: Insurance:MEDICARE BARKESDOB: [facility] INPATIENTVa Hospital [id number] [facility] Number: [place] Repository [place], [place] [id number] [place] [id number]: Date:Plan Name: [id number] () 05/08/2018 DAHLIA R Primary DAHLIA R [facility] [id number] Insurance:[facility]ICARE [facility]K [facility] [place] [facility] Repository [place], [place] Number: [address]Xaw: [phone]) [id number] [phone] (HP) Date: 12/28/2017 DAHLIA R Primary DAHLIA R Kashiflucinda Bennettzeinab BARKDOB: Insurance:MEDICARE BARKESDOB: [facility] OUTPATIENTVa Hospital [id number] [place] [address] Number: [place] Repository [place] [id number] [place] [id number]: Date:Plan Name: [phone] ()
== END 2018-08-07 15:40 | disposition home or self-care (01) ==
LOC: MEDOUTP 13:51 → MS3 13:58
PROVIDERS: Referring Provider Internal Medicine Infectious Disease; Visit Provider Internal Medicine Infectious Disease
DX: K65.1 Peritoneal abscess (principal)
CPT/HCPCS: 96365; J7050; A4216

== ENCOUNTER → 2018-08-08 13:55 | Outpatient (CLI) | payer SELFPAY ==
[2018-07-26 13:51] VITALS: BMI 24.3
[2018-08-05 14:13] VITALS: BMI 24.3
[2018-08-08 14:12] VITALS: BP 132/68; PULSE 89; RESP 16; TEMP 36.7; O2SAT 99; BMI 24.3
--- OUTSIDE RECORDS SUMMARY | 2018-11-10 05:34 | XMS RPT_ITS ---
:1970 Author Organization OHIP Support Name Relationship Address Phone NILDA MARINOT Unavailable [address] [place] [address] + [place] [address] BROWN, DINAH Unavailable Unavailable + D Unavailable Unavailable Unavailable BARKES, MARS Unavailable [address] [facility] + [place] [address] BROWN, DINAH Unavailable Unavailable + D Unavailable Unavailable Unavailable Barkes, Mars Unavailable Unavailable + Brown, Dinah Unavailable Unavailable + BARKES, MARS Unavailable [address] + [place] [address] BROWN, DINAH Unavailable Unavailable + D Unavailable Unavailable Unavailable BARKES, MARS Unavailable [address] + [place] [address] BROWN, DINAH Unavailable Unavailable + D Unavailable Unavailable Unavailable BARKES, MARS Unavailable [address] + [place] [address] BROWN, DINAH Unavailable Unavailable + D Unavailable Unavailable Unavailable BARKES, MARS Unavailable [address] + [place] [address] BROWN, DINAH Unavailable Unavailable + D Unavailable Unavailable Unavailable Barkes, Mars Unavailable Unavailable + Brown, Dinah Unavailable Unavailable + Barkes, Mars Unavailable Unavailable + Brown, Dinah Unavailable Unavailable + BARKES, MARS Unavailable [address] + [place] [address] BROWN, DINAH Unavailable Unavailable + D Unavailable Unavailable Unavailable BARKES, MARS Unavailable [address] [address] [facility] [address] + [place] [address] BROWN, DINAH Unavailable Unavailable + D Unavailable Unavailable Unavailable Barkes, Mars Unavailable Unavailable + Brown, Dinah Unavailable Unavailable + BARKES, MARS Unavailable [address] + [place] [address] BROWN, DINAH Unavailable Unavailable + D Unavailable Unavailable Unavailable BARKES, MARS Unavailable [address] + [place] [address] BROWN, DINAH Unavailable Unavailable + D Unavailable Unavailable Unavailable BARKES, MARS Unavailable [address] + [place] [address] BROWN, DINAH Unavailable Unavailable + D Unavailable Unavailable Unavailable BARKES, MARS Unavailable [address] + [place] [address] BROWN, DINAH Unavailable Unavailable + D Unavailable Unavailable Unavailable BARKES, MARS Unavailable [address] + [place] [address] BROWN, DINAH Unavailable Unavailable + D Unavailable Unavailable Unavailable Barkes, Mars Unavailable Unavailable + Brown, Dinah Unavailable Unavailable + BARKES, MARS Unavailable [address] + [place] [address] BROWN, DINAH Unavailable Unavailable + D Unavailable Unavailable Unavailable BARKES, MARS Unavailable [address] + [place] [address] BROWN, DINAH Unavailable Unavailable + D Unavailable Unavailable Unavailable BARKES, MARS Unavailable [address] + [place] [address] BROWN, DINAH Unavailable Unavailable + D Unavailable Unavailable Unavailable BARKES, MARS Unavailable [address] + [place] [address] BROWN, DINAH Unavailable Unavailable + D Unavailable Unavailable Unavailable BARKES, MARS Unavailable [address] + [place] [address] BROWN, DINAH Unavailable Unavailable + D Unavailable Unavailable Unavailable BARKES, MARS Unavailable [address] + [place] [address] BROWN, DINAH Unavailable Unavailable + D Unavailable Unavailable Unavailable BARKES, MARS Unavailable [address] + [place] [address] BROWN, DINAH Unavailable Unavailable + D Unavailable Unavailable Unavailable BARKES, MARS Unavailable [address] [facility] + [place] [address] BROWN, DINAH Unavailable Unavailable + D Unavailable Unavailable Unavailable BARKES, MARS Unavailable [address] + [place] [address] BROWN, DINAH Unavailable Unavailable + D Unavailable Unavailable Unavailable BARKES, MARS Unavailable [address] + [place] [address] BROWN, DINAH Unavailable Unavailable + D Unavailable Unavailable Unavailable BARKES, MARS Unavailable [address] + [place] [address] BROWN, DINAH Unavailable Unavailable + D Unavailable Unavailable Unavailable BARKES, MARS Unavailable [address] + [place] [address] BROWN, DINAH Unavailable Unavailable + D Unavailable Unavailable Unavailable BARKES, MARS Unavailable [address] + [place] [address] BROWN, DINAH Unavailable Unavailable + D Unavailable Unavailable Unavailable BARKES, MARS Unavailable [address] + [place] [address] BROWN, DINAH Unavailable Unavailable + D Unavailable Unavailable Unavailable BARKES, MARS Unavailable [address] + [place] [address] BROWN, DINAH Unavailable Unavailable + D Unavailable Unavailable Unavailable BARKES, MARS Unavailable [address] + [place] [address] BROWN, DINAH Unavailable Unavailable + D Unavailable Unavailable Unavailable BARKES, MARS Unavailable [address] + [place] [address] BROWN, DINAH Unavailable Unavailable + D Unavailable Unavailable Unavailable BARKES, MARS Unavailable [address] + [place] [address] BROWN, DINAH Unavailable Unavailable + D Unavailable Unavailable Unavailable BARKES, MARS Unavailable [address] + [place] [address] BROWN, DINAH Unavailable Unavailable + D Unavailable Unavailable Unavailable BARKES, MARS Unavailable [address] + [place] [address] BROWN, DINAH Unavailable Unavailable + D Unavailable Unavailable Unavailable BARKES, MARS Unavailable [address] + [place] [address] BROWN, DINAH Unavailable Unavailable + D Unavailable Unavailable Unavailable Barkes, Mars Unavailable Unavailable + Brown, Dinah Unavailable Unavailable + Barkes, Mars Unavailable Unavailable + Brown, Dinah Unavailable Unavailable + BARKES, MARS Unavailable [address] + [place] [address] BROWN, DINAH Unavailable Unavailable + D Unavailable Unavailable Unavailable BARKES, MARS Unavailable [address] + [place] [address] BROWN, DINAH Unavailable Unavailable + D Unavailable Unavailable Unavailable BARKES, MARS Unavailable [address] + [place] [address] BROWN, DINAH Unavailable Unavailable + D Unavailable Unavailable Unavailable BARKES, MARS Unavailable [address] + [place] [address] BROWN, DINAH Unavailable Unavailable + D Unavailable Unavailable Unavailable BARKES, MARS Unavailable [address] + [place] [address] BROWN, DINAH Unavailable Unavailable + D Unavailable Unavailable Unavailable BARKES, MARS Unavailable [address] + [place] [address] BROWN, DINAH Unavailable Unavailable + D Unavailable Unavailable Unavailable Barkes, Mars Unavailable Unavailable + Brown, Dinah Unavailable Unavailable + BARKES, MARS Unavailable [address] + [place] [address] BROWN, DINAH Unavailable Unavailable + D Unavailable Unavailable Unavailable BARKES, MARS Unavailable [address] + [place] [address] BROWN, DINAH Unavailable Unavailable + D Unavailable Unavailable Unavailable BARKES, MARS Unavailable [address] + [place] [address] BROWN, DINAH Unavailable Unavailable + D Unavailable Unavailable Unavailable Barkes, Mars Unavailable Unavailable + Brown, Dinah Unavailable Unavailable + BARKES, MARS Unavailable [address] + [place] [address] BROWN, DINAH Unavailable Unavailable + D Unavailable Unavailable Unavailable BARKES, MARS Unavailable [address] [place] [address] ST + [place] [address] BROWN, DINAH Unavailable Unavailable + D Unavailable [...] Unavailable Unavailable + LANCE MARINO Unavailable [address] + [place], [place] [id number] BARKES, MARS Unavailable Unavailable Unavailable NOT GIVEN Unavailable Unavailable Unavailable BARKES, LANCE Unavailable [address] + [place], [place] [id number] BARKES, MARS Unavailable Unavailable Unavailable NOT GIVEN [...] SOURCE 09/01/2018 Admitting Hypokalemia / Hashiguchi, Active [facility] Diagnosis E87.6(ICD-10) [facility] Repository 08/30/2018 Admitting 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, Active [facility]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 I, [facility] unspecified / Repository G90.50(ICD-10) 08/30/2018 Admitting Personal history of [place], Active [facility] Diagnosis nicotine dependence [facility] / Z87.891(ICD-10) Repository 08/30/2018 Admitting Fibromyalgia / [place], Active [facility] Diagnosis M79.7(ICD-10) [facility] Repository 08/30/2018 Admitting Hypothyroidism, [place], Active [facility] Diagnosis unspecified / [facility] E03.9(ICD-10) Repository 08/30/2018 Admitting Presence of coronary [place], Active [facility] Diagnosis angioplasty implant [facility] and graft / Repository Z95.5(ICD-10) 08/30/2018 Admitting 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[place], 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 and [facility] [...] 08/04/2018 Admitting Other ascites / Hashiguchi, Active [facility] Diagnosis R18.8(ICD-10) [facility] Repository 08/04/2018 Admitting Abnormal findings on Hashiguchi, Active [facility] Diagnosis dx imaging of oth [facility] body structures / Repository R93.89(ICD-10) 08/04/2018 Admitting Abnormal findings on Hashiguchi, Active [facility] Diagnosis dx imaging of prt [facility] digestive tract / Repository R93.3(ICD-10) 08/04/2018 Admitting Candidiasis of vulva Hashiguchi, Active [facility] Diagnosis and vagina / [facility] B37.3(ICD-10) Repository 08/04/2018 Admitting Crohn's disease of Hashiguchi, Active [facility] Diagnosis both small and lg [facility] int w oth Repository complication / K50.818(ICD-10) 07/26/2018 Admitting Encntr for f/u exam Hashiguchi, Active [facility] Diagnosis aft trtmt for cond [facility] oth than malig Repository neoplm / Z09(ICD-10) 07/17/2018 Admitting Peritoneal abscess / Zaugg, Active [facility] Diagnosis K65.1(ICD-10) System Repository 07/17/2018 Admitting Urinary tract Zaugg, Active [facility] Diagnosis infection, site not System specified / Repository N39.0(ICD-10) 07/17/2018 Admitting Hypomagnesemia / Zaugg, Active [facility] Diagnosis E83.42(ICD-10) System Repository 07/17/2018 Admitting Cutaneous abscess of Zaugg, Active [facility] Diagnosis abdominal wall / System L02.211(ICD-10) Repository 07/17/2018 Admitting Sepsis, unspecified Zaugg, Active [facility] Diagnosis organism / System A41.9(ICD-10) Repository 07/17/2018 Admitting Crohn's disease of Zaugg, Active [facility] Diagnosis both small and large System intestine w abscess Repository / K50.814(ICD-10) 07/17/2018 Admitting Postprocedural Zaugg, Active [facility] Diagnosis hypothyroidism / System E89.0(ICD-10) Repository 07/17/2018 Admitting Adverse effect of Zaugg, Active [facility] Diagnosis unsp systemic System antibiotic, init Repository encntr / T36.95XA(ICD-10) 07/17/2018 Admitting FDC (current) Zaugg, Active [facility] Diagnosis use of systemic System steroids / Repository Z79.52(ICD-10) 07/02/2018 Admitting Crohn's disease, Oscar, [facility] Diagnosis unspecified, with [facility] abscess / Repository K50.914(ICD-10) 07/02/2018 Admitting Unspecified severe Oscar, [facility] Diagnosis protein-calorie [facility] malnutrition / Repository E43(ICD-10) 07/02/2018 Admitting Athscl heart disease Oscar, [facility]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 Repository / I25.10(ICD-10) 07/02/2018 Admitting Body mass index Oscar, Active [facility] Diagnosis (BMI) 24.0-24.9, [facility] adult / Repository Z68.24(ICD-10) 07/02/2018 Admitting Abnormal weight loss Oscar, Active [facility] Diagnosis / R63.4(ICD-10) [facility] Repository 07/02/2018 Admitting Elevated white blood Oscar, [facility] Diagnosis cell count, [facility] System unspecified / Repository D72.829(ICD-10) 07/02/2018 Admitting Anemia, unspecified Oscar, Active [facility] Diagnosis / D64.9(ICD-10) [facility] Repository 07/01/2018 Active Unknown / CORI, Active [place] UNK(Unknown) [facility] Other [place] Repository 05/08/2018 Admitting Unknown / NA [facility] diagnosis UNK(Unknown) Hospital Repository 12/28/2017 Admitting Vomiting, OMLEY, 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 unspecified / DO [facility] R1110(ICD-10) Hospital Repository 12/28/2017 Principle Noninfective OMLEY, 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 gastroenteritis and DO [facility] colitis, unspecified Hospital / K529(ICD-10) Repository 12/28/2017 Secondary Crohn's disease, OMLEY, 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 unspecified, without DO [facility] complications / Hospital K5090(ICD-10) Repository 12/28/2017 Secondary Atherosclerotic OMLEY, 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 Repository angina pectoris / I2510(ICD-10) 12/28/2017 Secondary Presence of coronary OMLEY, 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 angioplasty implant DO [facility] and graft / Hospital Z955(ICD-10) Repository PROCEDURES PROCEDURES No Procedure Records FoundRESULTS RESULTS RF URETHROCYSTOGRAPHY Observed: 09/07/2018 Status: F Source: [facility] VOIDING 9:51 AM SYSTEM REPOSITORY Patient Name: DAHLIA MARINO Fluoroscopy Exam Date/Time 09/05/2018 10:14:33 EST Exam RF Urethrocystography Voiding Ordering Physician MD DEUCE, MICHELINE Gaspar Accession Number [id number] CTP4 Codes 65205 () Reason For Exam concern for rectovaginal [...] 09/06/2018 Status: F Source: [facility] 2:00 PM [facility] REPOSITORY TYPE CODE TESTS RESULT OUT OF [...] [facility] [address] [place], [address] COMPREHENSIVE METABOLIC Collected: 09/06/2018 Status: F Source: [facility] 2:00 PM [facility] REPOSITORY TYPE CODE TESTS RESULT OUT OF [...] [facility] [address] [place], [address] ED PROVIDER NOTE Observed: 09/01/2018 Status: F Source: [facility] 1:20 PM SYSTEM REPOSITORY This patient presented [...] W/DIFF, AUTOMATED Collected: 08/31/2018 Status: F Source: [facility] 2:15 PM [facility] REPOSITORY TYPE CODE TESTS RESULT OUT OF [...] [facility] [address] [place], [place], [address] COMPREHENSIVE METABOLIC Collected: 08/31/2018 Status: F Source: [facility] 2:15 PM [facility] REPOSITORY TYPE CODE TESTS RESULT OUT OF [...] [facility] [address] [place] [address]. [place], [address] Observed: 08/30/2018 Status: F Source: [facility] SURGICAL PATHOLOGY 8:22 AM SYSTEM REPOSITORY [id number] [facility] PATHOLOGY AND LABORATORY MEDICINE [address] [place] [address] FINAL SURGICAL PATHOLOGY REPORT NAME: DAHLIA MARINO : 1970 48 Y F BILLING NO.: [id number] LOCATION: 1XEO PROCEDURE 08/30/2018 DATE: SURGEON: MICHELINE [...] characteristics determined by the clinical laboratories of [facility]. They have not been cleared by [...] on decalcified specimens. Professional Performing Location: [address] [address]. DEPARTMENT OF PATHOLOGY AND LABORATORY MEDICINE [place], [place] [address] RF SMALL BOWEL W/ Observed: 08/25/2018 Status: F Source: [facility] SERIAL FILMS 2:30 PM SYSTEM REPOSITORY Patient Name: DAHLIA MARINO Fluoroscopy Exam Date/Time 08/25/2018 13:09:43 EST Exam RF Small Bowel w/ Serial Films Ordering Physician MD DEUCE, MICHELINE Gaspar Accession Number [id number] CTP4 Codes 38971 () Reason For Exam Crohn's Disease, rt. [...] 08/24/2018 Status: F Source: [facility] 2:23 PM [facility] REPOSITORY TYPE CODE TESTS [...] [facility] [address] [place], [address] COMPREHENSIVE METABOLIC Collected: 08/24/2018 Status: F Source: [facility] 2:23 PM [facility] REPOSITORY TYPE CODE TESTS RESULT OUT OF [...] [facility] [address] [place], [address] CBC W/DIFF, AUTOMATED Collected: 08/17/2018 Status: F [...] [facility] [address] [place], [place], [address] COMPREHENSIVE METABOLIC Collected: 08/17/2018 Status: F Source: [facility] 1:44 PM [facility] REPOSITORY TYPE CODE TESTS RESULT OUT OF [...] [facility] [address] [place], [address] CBC W/DIFF, AUTOMATED Collected: 08/10/2018 Status: F Source: [facility] 2:22 PM [facility] REPOSITORY TYPE CODE TESTS RESULT OUT OF [...] [facility] [address] [place], [address] COMPREHENSIVE METABOLIC Collected: 08/10/2018 Status: F Source: [facility] 2:22 PM [facility] REPOSITORY TYPE CODE TESTS RESULT OUT OF [...] [facility] [address] [facility] [place], [address] CT ABDOMEN/PELVIS W/ Observed: 08/04/2018 Status: F Source: [facility] CONTRAST 1:01 PM SYSTEM REPOSITORY Patient Name: DAHLIA MARINO CT Exam Date/Time 08/04/2018 12:09:[address] Abdomen/Pelvis w/ IV Contrast (IV Onl Ordering Physician MD MARCELA, JESSE Accession Number [id number] CPT4 Codes 42346 (CT Abdomen/Pelvis w/ IV Contrast (IV Onl), Q9967 (CT ISOVUE 370MG/[id number]) Reason For Exam RLQ phlegmon vs abscess [...] METABOLIC PANEL Collected: 08/04/2018 Status: F Source: [facility] 9:09 AM SYSTEM REPOSITORY TYPE CODE TESTS [...] Calcium 8.8 Performed By: #### BMP3 #### [facility] [place] [address] [address] CBC W/DIFF, AUTOMATED Collected: 08/03/2018 Status: F Source: [facility] 2:13 PM [facility] REPOSITORY TYPE CODE TESTS RESULT OUT OF [...] [facility] [address] [place], [place], [address] COMPREHENSIVE METABOLIC Collected: 08/03/2018 Status: F Source: [facility] 2:13 PM [facility] REPOSITORY TYPE CODE TESTS RESULT OUT OF [...] [facility] [address] [place] [address]. [place], [place], [id number] CBC W/DIFF, AUTOMATED Collected: 07/27/2018 Status: F Source: [facility] 2:06 PM [facility] REPOSITORY TYPE CODE TESTS RESULT OUT OF [...] [facility] [address] [place], [place], [address] COMPREHENSIVE METABOLIC Collected: 07/27/2018 Status: F Source: [facility] 2:06 PM [facility] REPOSITORY TYPE CODE TESTS RESULT OUT OF [...] [facility] [address] [place], [address] CBC W/DIFF, AUTOMATED Collected: 07/21/2018 Status: F Source: [facility] 2:35 PM [facility] REPOSITORY TYPE CODE TESTS RESULT OUT OF [...] [facility] [address] [place], [address] COMPREHENSIVE METABOLIC Collected: 07/21/2018 Status: F Source: [facility] 2:35 PM [facility] REPOSITORY TYPE CODE TESTS RESULT OUT OF [...] [facility] [address] [place] [address]. [place], [place], [id number] CR CHEST PORTABLE Observed: 07/20/2018 Status: F Source: [facility] 6:44 PM SYSTEM REPOSITORY Patient Name: DAHLIA MARINO Diagnostic Radiology Exam Date/Time 07/20/2018 16:55:27 EST Exam CR Chest Portable Ordering Physician DO PINON KATHRYN C Accession Number [id number] CPT4 Codes 53518 () Reason For Exam Line placement Report [...] DISCHARGE SUMMARY Observed: 07/20/2018 Status: F Source: [facility] 1:18 PM SYSTEM REPOSITORY Attestation signed by [...] resections x8), hypothyroidism, FM. Presented to [facility] ED on 07/17/18 with worsening abdominal pain. Patient was admitted to [facility] ED in 07/10, discharged 07/04/18. During [...] follow up with her GI doctor in [place], urged her to set up a follow up appointment soon after discharge. ID placed infusion orders for center in [place] with an appointment to start tomorrow. PROCEDURES: PICC placement CONSULTANTS: Interventional Radiology General Surgery Gastrointestinal Infectious Disease DISCHARGE MEDICATIONS: Dahlia Marino Home Medication Instructions MARLYN:[id number] Printed on:07/20/18 [id number] Medication Information calcium-vitamin D (OSCAL) 250-125 MG-UNIT [...] Complexity: follow up within 7-14 calendar days (60514) [x] Severe Complexity: follow up within 7 calendar days (56345) FOLLOW UP TESTING, PENDING RESULTS OR REFERRALS AT TRANSITIONAL CARE VISIT: CT of abdomen after 2-3 weeks of abx [x] Yes [] No RECOMMENDED NEXT STEPS: Please follow up with Dr. Langston at the [facility] at 10am on 07/26/2018. Please follow up with your GI doctor in [place]. Please follow up with Dr. Micheline Tripathi of general surgery at [phone] as soon as possible for a follow up appointment in two weeks . DISPOSITION: Home Follow up with Dr. Langston at the [facility] at 10am on 07/26/2018. INSTRUCTIONS TO MA/SW: [...] frame. TIFERON Collected: 07/20/2018 Status: F Source: [facility] 11:02 AM SYSTEM REPOSITORY TYPE CODE TESTS RESULT OUT OF REFERENCE UNITS RANGE LAB QTF Negative NA Quantiferon Negative Performed By: #### QTF #### [facility] [address] [id number] HEMOGRAM Collected: 07/20/2018 Status: F Source: [facility] 4:25 AM SYSTEM REPOSITORY TYPE CODE TESTS [...] By: #### HEMOG, BMP3M, MG3, PHOS3 #### [facility] [address] [place] [phone] BASIC METABOLIC PANEL Collected: 07/20/2018 Status: F Source: [facility] 4:25 AM SYSTEM REPOSITORY TYPE CODE TESTS [...] By: #### HEMOG, BMP3M, MG3, PHOS3 #### [facility] [address] [place] [address] MAGNESIUM Collected: 07/20/2018 Status: F Source: [facility] 4:25 AM SYSTEM REPOSITORY TYPE CODE TESTS RESULT OUT OF REFERENCE UNITS RANGE LAB MG3 1.6-2.3 mg/dL Low Magnesium 1.5 Performed By: #### HEMOG, BMP3M, MG3, PHOS3 #### [facility] [place] [address] PHOSPHORUS Collected: 07/20/2018 Status: F Source: [facility] 4:25 AM SYSTEM REPOSITORY TYPE CODE TESTS RESULT OUT OF RANGE REFERENCE UNITS LAB PHOS3 2.5-4.5 mg/dL Normal Phosphorus 4.3 Performed By: #### HEMOG, BMP3M, MG3, PHOS3 #### [facility] [address] [place] [address] Observed: 07/19/2018 Status: F Source: [facility] CLOSTRIDIUM DIFFICILE 10:53 PM SYSTEM REPOSITORY PCR [...] be submitted. Performed By: #### CDPCR #### [facility] [address] [address] HEMOGRAM Collected: 07/19/2018 Status: F Source: [facility] 5:29 AM SYSTEM REPOSITORY TYPE CODE TESTS [...] By: #### HEMOG, BMP3M, MG3, PHOS3 #### [facility] [address] [place] [phone] BASIC METABOLIC PANEL Collected: 07/19/2018 Status: F Source: [facility] 5:29 AM SYSTEM REPOSITORY TYPE CODE TESTS [...] By: #### HEMOG, BMP3M, MG3, PHOS3 #### [facility] [address] [place] [phone] MAGNESIUM Collected: 07/19/2018 Status: F Source: [facility] 5:29 AM SYSTEM REPOSITORY TYPE CODE TESTS RESULT OUT OF RANGE REFERENCE UNITS LAB MG3 1.6-2.3 mg/dL Normal Magnesium 1.6 Performed By: #### HEMOG, BMP3M, MG3, PHOS3 #### [facility] [place] [address] [address] PHOSPHORUS Collected: 07/19/2018 Status: F Source: [facility] 5:29 AM SYSTEM REPOSITORY TYPE CODE TESTS RESULT OUT OF RANGE REFERENCE UNITS LAB PHOS3 2.5-4.5 mg/dL Normal Phosphorus 3.4 Performed By: #### HEMOG, BMP3M, MG3, PHOS3 #### [facility] [address] [address] HEMOGRAM Collected: 07/18/2018 Status: F Source: [facility] 5:02 AM SYSTEM REPOSITORY TYPE CODE TESTS [...] By: #### HEMOG, BMP3M, MG3, PHOS3 #### [facility] [address] [address] BASIC METABOLIC PANEL Collected: 07/18/2018 Status: F Source: [facility] 5:02 AM SYSTEM REPOSITORY TYPE CODE TESTS [...] By: #### HEMOG, BMP3M, MG3, PHOS3 #### [facility] [address] [place] [address] MAGNESIUM Collected: 07/18/2018 Status: F Source: [facility] 5:02 AM SYSTEM REPOSITORY TYPE CODE TESTS RESULT OUT OF RANGE REFERENCE UNITS LAB MG3 1.6-2.3 mg/dL Normal Magnesium 1.6 Performed By: #### HEMOG, BMP3M, MG3, PHOS3 #### [facility] [address] [place] [phone] PHOSPHORUS Collected: 07/18/2018 Status: F Source: CrowdChat 5:02 AM SYSTEM REPOSITORY TYPE CODE TESTS RESULT OUT OF RANGE REFERENCE UNITS LAB PHOS3 2.5-4.5 mg/dL Normal Phosphorus 3.5 Performed By: #### HEMOG, BMP3M, MG3, PHOS3 #### [facility] [address] [place] [phone] BASIC METABOLIC PANEL Collected: 07/17/2018 Status: F Source: CrowdChat 2:00 PM SYSTEM REPOSITORY TYPE CODE TESTS [...] Calcium 7.5 Performed By: #### BMP3 #### [facility] [address] [place], [place] LACTIC ACID Collected: 07/17/2018 Status: F Source: CrowdChat 11:25 AM SYSTEM REPOSITORY TYPE CODE TESTS RESULT OUT OF REFERENCE UNITS RANGE LAB LACT3 0.7-2.0 mmol/L Low Lactic Acid < 0.5 Performed By: #### LACT3 #### [facility] [address] [place], [place] Observed: 07/17/2018 Status: F Source: CrowdChat CULTURE URINE 8:28 AM SYSTEM REPOSITORY Order Comment: Specimen Source Comment:Urine, clean catch CULTURE URINE --> Status: F Normal urogenital elham present. Performed By: #### C/UR #### [facility]. [place], [place] CT ABDOMEN/PELVIS W/ Observed: 07/17/2018 Status: F Source: CrowdChat CONTRAST 5:09 AM SYSTEM REPOSITORY Patient Name: DAHLIA MARINO CT Exam Date/Time 07/17/2018 05:32:[address] Abdomen/Pelvis w/ IV Contrast (IV Onl Ordering Physician MD JAMIR, IRENE Gray Accession Number [id number] CPT4 Codes 80672 (CT Abdomen/Pelvis w/ IV Contrast (IV Onl), Q9967 (CT ISOVUE 370MG/[id number]) Reason For Exam recent abscess due to [...] 07/17/2018 5:09 Observed: 07/17/2018 Status: F Source: CrowdChat CULTURE BLOOD 4:57 AM SYSTEM REPOSITORY Order Comment: Specimen Source Comment:Blood CULTURE BLOOD --> Status: F No growth at 5 days. Performed By: #### C/BLD #### [facility] [address] [place] [phone] Observed: 07/17/2018 Status: F Source: CrowdChat CULTURE BLOOD (TWO) 4:01 AM SYSTEM REPOSITORY Order Comment: Specimen Source Comment:Blood CULTURE BLOOD (Two) --> Status: F No growth at 5 days. Performed By: #### C/BLT #### [facility] [address] [place] [phone] HEMOGRAM W/ AUTODIFF Collected: 07/17/2018 Status: F Source: CrowdChat 4:00 AM SYSTEM REPOSITORY TYPE CODE TESTS [...] LIPA4, LFT3, BMP3, CRP2, ESR, PCAL #### [facility] [address] [place] [phone] LACTIC ACID Collected: 07/17/2018 Status: F Source: CrowdChat 4:00 AM SYSTEM REPOSITORY TYPE CODE TESTS RESULT OUT OF RANGE REFERENCE UNITS LAB LACT3 0.7-2.0 mmol/L Normal Lactic Acid 1.2 Performed By: #### HEMDF, LACT3, LIPA4, LFT3, BMP3, CRP2, ESR, PCAL #### [facility] [address] [place] [phone] LIPASE Collected: 07/17/2018 Status: F Source: CrowdChat 4:00 AM SYSTEM REPOSITORY TYPE CODE TESTS RESULT OUT OF RANGE REFERENCE UNITS LAB LIPA4 23-300 U/L Normal Lipase 38 Performed By: #### HEMDF, LACT3, LIPA4, LFT3, BMP3, CRP2, ESR, PCAL #### [facility] [address] [place] [phone] HEPATIC FUNCTION Collected: 07/17/2018 Status: F Source: CrowdChat 4:00 AM SYSTEM REPOSITORY TYPE CODE TESTS [...] LIPA4, LFT3, BMP3, CRP2, ESR, PCAL #### [facility] [address] [place] [phone] BASIC METABOLIC PANEL Collected: 07/17/2018 Status: F Source: CrowdChat 4:00 AM SYSTEM REPOSITORY TYPE CODE TESTS [...] LIPA4, LFT3, BMP3, CRP2, ESR, PCAL #### [facility] [address] [place] [address] C-REACTIVE PROTEIN Collected: 07/17/2018 Status: F Source: CrowdChat 4:00 AM SYSTEM REPOSITORY TYPE CODE TESTS RESULT OUT OF REFERENCE UNITS RANGE LAB 2CRP 0.0-6.0 mg/L High C-Reactive 11.6 Protein Result Comment: . Performed By: #### HEMDF, LACT3, LIPA4, LFT3, BMP3, CRP2, ESR, PCAL #### [facility] [address] [place] [phone] SED RATE Collected: 07/17/2018 Status: F Source: CrowdChat 4:00 AM SYSTEM REPOSITORY TYPE CODE TESTS RESULT OUT OF RANGE REFERENCE UNITS LAB ESR 0-20 mm/h High Sed Rate 27 Performed By: #### HEMDF, LACT3, LIPA4, LFT3, BMP3, CRP2, ESR, PCAL #### [facility] [address] [place] [phone] PROCALCITONIN Collected: 07/17/2018 Status: F Source: CrowdChat 4:00 AM SYSTEM REPOSITORY TYPE CODE TESTS RESULT OUT OF REFERENCE UNITS RANGE LAB PRO <0.10 ng/mL Procalcitonin Normal < 0.10 LAB INT3 NA Interpretation See Below Result Comment: PCT <0.50 = Low risk of severe sepsis and/or septic shock. PCT >2.00 = High risk of severe sepsis and/or septic shock. Performed By: #### HEMDF, LACT3, LIPA4, LFT3, BMP3, CRP2, ESR, PCAL #### [facility] [address] [place] [phone] ED PROVIDER NOTE Observed: 07/17/2018 Status: F Source: CrowdChat 2:30 AM SYSTEM REPOSITORY [facility] EMERGENCY DEPT eMERGENCY dEPARTMENT eNCOUnter Pt Name: Dahlia Marino Birthdate 1970 Date of evaluation: 07/17/2018 Provider: Irene Marlow MD Chief Complaint: No chief complaint on file. LUMBEE: Dahlia Marino is a 48 y.o. female [...] antibiotics in the hospital. 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) none Chart review shows recent radiographs: Ct Abdomen Pelvis W Contrast Result Date: 07/02/2018 Patient Name: DAHLIA MARINO ---CT--- Exam Date/Time 07/02/2018 07:47:[address] Abdomen/Pelvis w/ IV Contrast (IV Onl Ordering Physician MD IVIS, MPH, MICHELINE Accession Number [id number] CPT4 Codes 24798 (CT Abdomen/Pelvis w/ IV Contrast (IV Onl), Q9967 (CT ISOVUE 370MG/ML&[id number]&ML&1) Reason For Exam Crohns flare, known abscess [...] PROVIDER NOTE Observed: 07/17/2018 Status: F Source: CrowdChat 2:30 AM SYSTEM REPOSITORY Emergency Department Encounter Location: [facility] EMERGENCY DEPT Patient: Dahlia Marino : [...] # 1.4 1.0 - 4.3 10*3/uL Absolute Blackford # 1.2 (H) 0.0 - 0.8 10*3/uL [...] eGFR >60.0 >60 mL/min EGFR IF NonAfrican Ethiopian >60.0 >60 mL/min Calcium 8.1 (L) 8.4 [...] Physician MD JAMIR, IRENE Gray Accession Number [id number] CPT4 Codes 80929 (CT Abdomen/Pelvis w/ IV Contrast (IV Onl), Q9967 (CT ISOVUE 370MG/[id number]&ML&1) Reason For Exam recent abscess due to [...] are mis-transcribed.) Bon Mercedse MD Acute Care [facility] Bon Mercedes MD 07/17/18 0551 DISCHARGE SUMMARY Observed: 07/04/2018 Status: F Source: CrowdChat 11:29 AM SYSTEM REPOSITORY Attestation signed by [...] on gregory), hypothyroidism, fibromyalgia presented to [facility] w/ progressive 6 week hx of abdominal pain. She was first seen at [facility] in [place], [place] 6wks prior to admission for abdominal [...] in the urine. CT abdomen done at [facility] (07/01/18) which showed a complex inflammatory collection/mass in anterior RLQ abscess. Patient was then transferred to [facility] the same day for further management and a second opinion. Patient and then requested transfer to [facility] as they have had family treated [...] DISCHARGE MEDICATIONS: Dahlia Marino Home Medication Instructions MARLYN:[id number] Printed on:07/05/18 1008 Medication Information adalimumab (HUMIRA) [...] Complexity: follow up within 7-14 calendar days (59306) [] Severe Complexity: follow up within 7 calendar days (36032) FOLLOW UP TESTING, PENDING RESULTS OR REFERRALS [...] W/ AUTODIFF Collected: 07/04/2018 Status: F Source: CrowdChat 5:08 AM SYSTEM REPOSITORY TYPE CODE TESTS [...] #### HEMDF, BMP3M, MG3, PHOS3, LFT3 #### [facility] [address] [place] [address] BASIC METABOLIC PANEL Collected: 07/04/2018 Status: F Source: CrowdChat 5:08 AM SYSTEM REPOSITORY TYPE CODE TESTS [...] #### HEMDF, BMP3M, MG3, PHOS3, LFT3 #### [facility] [address] [place] [phone] MAGNESIUM Collected: 07/04/2018 Status: F Source: CrowdChat 5:08 AM SYSTEM REPOSITORY TYPE CODE TESTS RESULT OUT OF RANGE REFERENCE UNITS LAB MG3 1.6-2.3 mg/dL Normal Magnesium 1.8 Performed By: #### HEMDF, BMP3M, MG3, PHOS3, LFT3 #### [facility] [address] [place] [phone] PHOSPHORUS Collected: 07/04/2018 Status: F Source: CrowdChat 5:08 AM SYSTEM REPOSITORY TYPE CODE TESTS RESULT OUT OF RANGE REFERENCE UNITS LAB PHOS3 2.5-4.5 mg/dL Normal Phosphorus 3.8 Performed By: #### HEMDF, BMP3M, MG3, PHOS3, LFT3 #### [facility] [address] [place] [phone] HEPATIC FUNCTION Collected: 07/04/2018 Status: F Source: CrowdChat 5:08 AM SYSTEM REPOSITORY TYPE CODE TESTS [...] #### HEMDF, BMP3M, MG3, PHOS3, LFT3 #### [facility] [address] [place] [phone] HEMOGRAM W/ AUTODIFF Collected: 07/03/2018 Status: F Source: CrowdChat 2:31 AM SYSTEM REPOSITORY TYPE CODE TESTS [...] By: #### HEMDF, MG3, PHOS3, BMP3M #### [facility] [address] [place] [address] MAGNESIUM Collected: 07/03/2018 Status: F Source: CrowdChat 2:31 AM SYSTEM REPOSITORY TYPE CODE TESTS RESULT OUT OF RANGE REFERENCE UNITS LAB MG3 1.6-2.3 mg/dL Normal Magnesium 2.1 Performed By: #### HEMDF, MG3, PHOS3, BMP3M #### [facility] [place], [place] PHOSPHORUS Collected: 07/03/2018 Status: F Source: CrowdChat 2:31 AM SYSTEM REPOSITORY TYPE CODE TESTS RESULT OUT OF RANGE REFERENCE UNITS LAB PHOS3 2.5-4.5 mg/dL Normal Phosphorus 3.8 Performed By: #### HEMDF, MG3, PHOS3, BMP3M #### [facility] [address] [place] [address] BASIC METABOLIC PANEL Collected: 07/03/2018 Status: F Source: CrowdChat 2:31 AM SYSTEM REPOSITORY TYPE CODE TESTS [...] By: #### HEMDF, MG3, PHOS3, BMP3M #### [facility] [address] [place] [address] URINALYSIS,MACRO Collected: 07/03/2018 Status: F Source: CrowdChat 2:23 AM SYSTEM REPOSITORY TYPE CODE TESTS RESULT OUT OF REFERENCE UNITS RANGE LAB APPUR Clear NA Appearance Cloudy LAB COLUR Lt. Yellow NA Color Yellow LAB USG 1.005-1.030 NA Specific Normal [place],Urine 1.015 LAB UPH 5.0-8.0 NA pH,Urine Normal [...] By: #### UAMAC, UAMIC #### [facility] [address] [place] [address] URINALYSIS,MICROSCOPIC Collected: Status: F Source: [facility]av[facility] 07/03/2018 2:23 AM HEALTH SYSTEM REPOSITORY TYPE CODE TESTS RESULT OUT OF REFERENCE UNITS RANGE LAB WBCU 0-5 /[HPF] 26 WBC,Urine - 50 LAB RBCU 0-2 /[HPF] 11 RBC,Urine - 25 LAB EPIU 3-5 /[HPF] 0 Epithelial Cells - 2 LAB LILLIAM Negative NA Bacteria Many (51-100) LAB AMPH Negative NA Amorphous Moderate Phosphates (6-50) Performed By: #### UAMAC, UAMIC #### [facility] [place] [address] Observed: 07/03/2018 Status: F Source: CrowdChat CULTURE URINE 2:23 AM SYSTEM REPOSITORY Order Comment: Specimen Source Comment:Urine, clean catch CULTURE URINE --> Status: F No growth (<1,000 CFU/ml). Performed By: #### C/UR #### [facility] [address] [address] [address] ABDOMEN/PELVIS W/ Observed: 07/02/2018 Status: F Source: CrowdChat CONTRAST 8:06 AM SYSTEM REPOSITORY Patient Name: DAHLIA MARINO CT Exam Date/Time 07/02/2018 07:47:[address] Abdomen/Pelvis w/ IV Contrast (IV Onl Ordering Physician MD IVIS, MPH, MICHELINE Reyes Number [id number] CPT4 Codes 32042 (CT Abdomen/Pelvis w/ IV Contrast (IV Onl), Q9967 (CT ISOVUE 370MG/[id number]) Reason For Exam Crohns flare, known abscess [...] 8:06 URINALYSIS,MACRO Collected: 07/02/2018 Status: F Source: CrowdChat 1:59 AM SYSTEM REPOSITORY TYPE CODE TESTS RESULT OUT OF REFERENCE UNITS RANGE LAB APPUR Clear NA Appearance Clear LAB COLUR Lt. Yellow NA Color P. Yellow LAB USG 1.005-1.030 NA Specific Normal [place],Urine 1.010 LAB UPH 5.0-8.0 NA pH,Urine Normal [...] 25 Performed By: #### UAMAC, UAMIC #### [facility] [address] [address] URINALYSIS,MICROSCOPIC Collected: Status: F Source: [employer]avolution 07/02/2018 1:59 AM HEALTH SYSTEM REPOSITORY TYPE CODE TESTS RESULT OUT OF REFERENCE UNITS RANGE LAB WBCU 0-5 /[HPF] 11 WBC,Urine - 25 LAB RBCU 0-2 /[HPF] 3 RBC,Urine - 5 LAB EPIU 3-5 /[HPF] 3 Epithelial Cells - 5 LAB LILLIAM Negative NA Bacteria Moderate (6-50) Performed By: #### UAMAC, UAMIC #### [facility] [address] [place] [address] Observed: 07/02/2018 Status: F Source: Amware BLOOD 1:45 AM SYSTEM REPOSITORY Order Comment: Specimen Source Comment:Blood CULTURE BLOOD --> Status: F No growth at 5 days. Performed By: #### C/BLD #### [facility] [address] [place] [address] Observed: 07/02/2018 Status: F Source: Amware BLOOD (TWO) 1:45 AM SYSTEM REPOSITORY Order Comment: Specimen Source Comment:Blood CULTURE BLOOD (Two) --> Status: F No growth at 5 days. Performed By: #### C/BLT #### [facility] [address] HEMOGRAM W/ AUTODIFF Collected: 07/02/2018 Status: F Source: CrowdChat 1:37 AM SYSTEM REPOSITORY TYPE CODE TESTS [...] LACT3, TSH5, CMP3, MG3, FT4M, TROPN #### [facility] [address] [place] [phone] PROTHROMBIN TIME Collected: 07/02/2018 Status: F Source: CrowdChat 1:37 AM SYSTEM REPOSITORY TYPE CODE TESTS [...] LACT3, TSH5, CMP3, MG3, FT4M, TROPN #### [facility] [address] [place] [phone] LACTIC ACID Collected: 07/02/2018 Status: F Source: CrowdChat 1:37 AM SYSTEM REPOSITORY TYPE CODE TESTS RESULT OUT OF REFERENCE UNITS RANGE LAB LACT3 0.7-2.0 mmol/L Low Lactic Acid 0.6 Performed By: #### HEMDF, PT, LACT3, TSH5, CMP3, MG3, FT4M, TROPN #### [facility] [address] [place] [phone] THYROID STIM. Collected: 07/02/2018 Status: F Source: CrowdChat HORMONE 1:37 AM SYSTEM REPOSITORY TYPE CODE TESTS RESULT OUT OF REFERENCE UNITS RANGE LAB TSH5 0.465-4.680 u[IU]/mL Low Thyroid Stim. 0.175 Hormone Performed By: #### HEMDF, PT, LACT3, TSH5, CMP3, MG3, FT4M, TROPN #### [facility] [address] [place] [phone] COMP METABOLIC PANEL Collected: 07/02/2018 Status: F Source: CrowdChat 1:37 AM SYSTEM REPOSITORY TYPE CODE TESTS [...] LACT3, TSH5, CMP3, MG3, FT4M, TROPN #### [facility] [address] [place] [phone] MAGNESIUM Collected: 07/02/2018 Status: F Source: CrowdChat 1:37 AM SYSTEM REPOSITORY TYPE CODE TESTS RESULT OUT OF REFERENCE UNITS RANGE LAB MG3 1.6-2.3 mg/dL Low Magnesium 1.5 Performed By: #### HEMDF, PT, LACT3, TSH5, CMP3, MG3, FT4M, TROPN #### [facility] [address] [place] [phone] FREE T4 Collected: 07/02/2018 Status: F Source: CrowdChat 1:37 AM SYSTEM REPOSITORY TYPE CODE TESTS RESULT OUT OF RANGE REFERENCE UNITS LAB FT4M 0.78-2.19 ng/dL Normal Free T4 1.87 Performed By: #### HEMDF, PT, LACT3, TSH5, CMP3, MG3, FT4M, TROPN #### [facility] [address] [place] [address] TROPONIN I Collected: 07/02/2018 Status: F Source: CrowdChat 1:37 AM SYSTEM REPOSITORY TYPE CODE TESTS RESULT OUT OF RANGE REFERENCE UNITS LAB TROP4 0.000-0.034 ng/mL Normal Troponin I < 0.012 Result Comment: 0.046 - 0.400 = Indeterminate > 0.400 = Consider Myocardial Injury Performed By: #### HEMDF, PT, LACT3, TSH5, CMP3, MG3, FT4M, TROPN #### [facility] [address] [place] [address] ED PROVIDER NOTE Observed: 07/02/2018 Status: F Source: CrowdChat 12:02 AM SYSTEM REPOSITORY Emergency Department Encounter [...] few weeks, was seen at [facility]. yesterday, CT there showed an intra-abdominal [...] otherwise acutely negative except as in the LUMBEE. Past History Past Medical History: Diagnosis Date [...] # 1.6 1.0 - 4.3 10*3/uL Absolute Blackford # 1.4 (H) 0.0 - 0.8 10*3/uL [...] eGFR >60.0 >60 mL/min EGFR IF NonAfrican Ethiopian >60.0 >60 mL/min Calcium 8.0 (L) 8.4 [...] UA P. Yellow Lt. Yellow NA Specific [place], Urine 1.010 1.005 - 1.030 NA pH, [...] me Rhythm: normal sinus Rate: normal, [address] [place]: normal Ectopy: none Conduction: normal ST Segments: [...] [facility] only got [facility] scan [...] PROVIDER NOTE Observed: 07/02/2018 Status: F Source: CrowdChat 12:02 AM SYSTEM REPOSITORY Emergency Department Encounter [facility] EMERGENCY DEPT Patient: Dahlia Marino : 1970 Date of Evaluation: 07/02/2018 ED Provider: BLAIR HOLDEN CNP As the [id number], I performed a medical screening history and [...] per patient and family. They were at [facility] earlier this morning. Per report from family CT was done with oral contrast finding possible abscess below her liver. He was transferred [facility] without their knowledge. Family states they thought she was coming here. He was at [facility] day and that concerns about [...] NURSING PROG Observed: 07/01/2018 Status: COMPLETED Source: [facility] 11:34 PM [facility] REPOSITORY HNO ID: [id number] Author: Meme (Rn) EZEKIEL Ramsay Service: Emergency [...] this. I personally spoke with Winter Paez SKIN CARE INSTRUCTOR, requested further order to check labs including [...] bleeding. PROGRESS Observed: 07/01/2018 Status: COMPLETED Source: [facility] 11:15 PM [facility] REPOSITORY HNO ID: [id number] Author: Jeannine (Clayton) BLAIR Womack.CLAYTON Service: (none) Author Type: Nurse Practitioner Type: Progress Notes Filed: 07/01/2018 11:51 PM Note Text: CTBS for patient requesting to leave AMA. Nursing clerical supervisor on floor speaking with patient and [...] of testing. Family is taking patient to [facility] ED at this time. Pt is alert and oriented x 3, capable of making decisions. AMA paperwork filled out and signed at bedside. Jeannine Womack CNP NURSING PROG Observed: 07/01/2018 Status: COMPLETED Source: [facility] 9:25 PM [facility] OTHER [facility] REPOSITORY HNO ID: [id number] Author: Ester (Rn) EZEKIEL Kamara Service: (none) [...] Observed: 07/01/2018 Status: F Source: [facility] WITH CONTRAST 8:57 PM HEALTH SYSTEM REPOSITORY Performed at [facility] APPROVED BY: Zia Maurer MD Exam Title: [...] advised. CONSULT Observed: 07/01/2018 Status: COMPLETED Source: [facility] 4:02 PM [facility] REPOSITORY [facility] ID: [id number] Author: Misty Mcdonald Service: General Surgery Author [...] primary care provider on file. Subjective Ms. Marnio is a 47 year old female with Crohn's with multiple flares, multiple SBRs, partial liver resection, who presents for abdominal pain that began 5 weeks ago. Patient was seen for said pain a few weeks ago at outside ED where she was given Flagyl for her pain which helped initially but the pain eventually returned and got worse. Patient presented to [place] ED where CT Abd/Pelvis showed a possible [...] CONSULT PROG Observed: 07/01/2018 Status: COMPLETED Source: [facility] 3:57 PM [facility]IN[facility] OTHER CAMPUS REPOSITORY O ID: [id number] Author: Kamran Colon Service: Gastroenterology Author Type: [...] ago per patient) who presented to the [place] [facility] ED for abdominal pain. She stated she [...] she called EMS who transferred her to [facility]. In the ED her abdominal CT revealed possible abscess vs neoplasms so she was transferred to [facility]. She denied melena, hematochezia, hematemesis, and [...] ago (no record in [facility]). FUNCTIONAL STATUS: Independent PAST MEDICAL HISTORY Diagnosis [...] ago (no record in [facility]) Assessment AND Plan: Repeat Abdominal CT with [...] ago (no record in [facility]) Assessment AND Plan: Need records from Temporary Data Entry Clerk Dr. Loomis in [place]. SIGNATURE: Kamran Colon APRN.CNP PATIENT NAME: Dahlia Marino DATE: July 01, 2018 TIME: 3:57 PM PAGER: [email or web address] Observed: 07/01/2018 Status: COMPLETED Source: [facility] 3:47 PM [facility] OTHER C[facility]US REPOSITORY HNO ID: [id number] Author: Argentina Zuluaga RD (Ld) Service: Nutrition [...] gm protein per serving and vanilla Boost [facility] QD, to provide 530 kcal [...] nutritional status Reason for Assessment: Consult from CUSTOM PROTECTION OFFICER for patient with 28 lbs weight loss in 4 weeks. Per HPI: This is a 47 year old female with PMH of crohns, hypothyroid, wallace, ape, liver sx d/t infection who presents to the [facility] from [facility]. Pt called EMS and had them [...] ENSURE CLEAR MIXED PEREZ Supplement 2: BOOST [facility] VANILLA Lines and Drains: Peripheral [...] Admitted) 07/01/18 0700 - 07/02/18 0659 Shift 5018-7775 9064-6938 24 Hour Total 8377-8833 7826-1038 9161-8523 24 Hour Total I N T A [...] July 01, 2018 TIME: 4:25 PM PAGER: [phone] CEA Collected: 07/01/2018 Status: F Source: [facility] 1:55 PM HEALTH SYSTEM REPOSITORY TYPE CODE TESTS RESULT OUT OF RANGE REFERENCE UNITS LAB CEA(LOINC) 0.0-3.0 ng/mL CEA 2.5 Result Comment: The reference range shown is for adult non-smokers. The range for smokers is 0-5.0 Testing performed by Chemiluminescence LOCI. Performed By: #### CEA #### [place] [address] MAGNESIUM BLOOD Collected: 07/01/2018 Status: F Source: [facility] 1:55 PM HEALTH SYSTEM REPOSITORY TYPE CODE TESTS RESULT OUT OF REFERENCE UNITS RANGE LAB MAG(LOINC) 1.6-2.6 mg/dL Magnesium Blood 1.6 Performed By: #### MAG #### [place] [address] Observed: 07/01/2018 Status: F Source: [facility] CULT BLOOD 12:00 PM HEALTH SYSTEM REPOSITORY Test performed at [facility] No growth Performed By: #### C_BLO #### [place] [address] HEMOGRAM Collected: 07/01/2018 Status: F Source: [facility] 11:55 AM HEALTH SYSTEM REPOSITORY TYPE CODE [...] MPV 9.8 Performed By: #### CBC1 #### [place] [address] LACTIC ACID Collected: 07/01/2018 Status: F Source: [facility] 11:55 AM HEALTH SYSTEM REPOSITORY TYPE CODE TESTS RESULT OUT OF REFERENCE UNITS RANGE LAB LAC(LOINC) 0.4-2.0 mEq/L Lactic Acid 0.4 Performed By: #### LAC #### [place] [address] PHOSPHORUS BLOOD Collected: 07/01/2018 Status: F Source: [facility] 11:55 AM HEALTH SYSTEM REPOSITORY TYPE CODE TESTS RESULT OUT OF REFERENCE UNITS RANGE LAB PHOS(LOINC 2.5-4.9 mg/dL ) Phosphorus Blood 3.8 Performed By: #### PHOS #### [place] [address] CRP Collected: 07/01/2018 Status: F Source: [facility] 11:55 AM HEALTH SYSTEM REPOSITORY TYPE CODE TESTS RESULT OUT OF RANGE REFERENCE UNITS LAB CRP3(LOINC) 0.00-0.30 mg/dL High CRP 8.04 Performed By: #### CRP3 #### [facility] [address] [place] [address] COMPREHENSIVE PANEL Collected: 07/01/2018 Status: F Source: [facility] 11:55 AM HEALTH SYSTEM REPOSITORY TYPE CODE [...] Gap 12 Performed By: #### P14 #### [place] [address] MDRD GFR Collected: 07/01/2018 Status: F Source: [facility] 11:[facility] REPOSITORY TYPE CODE TESTS RESULT OUT OF RANGE REFERENCE UNITS LAB GFRFN(LOINC >60mL/min/1.73m ) 2 eGFR >60 Result Comment: If the patient is , multiply the result by 1.210. Performed By: #### GFR #### [facility] [address] [place] [address] PROTIME Collected: 07/01/2018 Status: F Source: [place] [address]:[address] [place] [address] SYSTEM REPOSITORY TYPE CODE TESTS RESULT OUT OF REFERENCE UNITS RANGE LAB PTI(LOINC) 9.7-13.0 sec Prothrombin Time 11.7 LAB INR(LOINC) 0.90-1.30 INR 1.14 Result Comment: Note: Reference Range Change Vitamin K Antagonist (VKA) Therapeutic Range: INR 2 to 3 (Target INR of 2.5) Note: For patients treated with VKA drugs, such as warfarin, the [employer] 2012 Guideline recommends [...] 70: 252-289 Performed By: #### PT #### [place] [address] ACTIVATED PTT Collected: 07/01/2018 Status: F Source: [facility] 11:[address] [place] [address] SYSTEM REPOSITORY TYPE CODE TESTS RESULT OUT [...] laboratory APTT reagent in use throughout the [facility]. Performed By: #### APTT #### [facility] [address] [place], [place] [address] SED RATE Collected: 07/01/2018 Status: F Source: [facility] 11:55 AM HEALTH SYSTEM REPOSITORY TYPE CODE TESTS RESULT OUT OF RANGE REFERENCE UNITS LAB ESR(LOINC) 0-20 mm/hr High Sed Rate 38 Performed By: #### ESR #### [facility] [address] [place], [place] [address] HISTORY PHYSICAL Observed: 07/01/2018 Status: COMPLETED Source: [facility] 11:14 AM CLINIC OTHER CAMPUS REPOSITORY HNO ID: [id number] Author: Meryl Hogan Service: Hospital Medicine Author Type: Nurse Practitioner Type: HANDP Filed: 07/01/2018 11:50 AM Note Text: Attestation signed by Jose Altamirano at 2018 5:50 PM (Updated) I have personally seen and examined the patient. I agree with the CUSTOM PROTECTION OFFICER's note with following addition. Ms Marino, a 47 years old lady who has hx of UC and is on Humira Q week (last dose 2 weeks ago) under care of GI (? Dr Bender in [facility]) and multiple bowel surgeries including bowel resection, has abdominal pain for more than a month initially in lower part now generalized worse with food. Has fever in the last few days. Normal BM (reported diarrhea to [facility]), no nausea. Was treated with flagyl for a week a month ago. Last c scope > 5 years ago and last surgery > 5 years ago. She presented to [facility] where she was noted to [...] 2 weeks ago), under the care of air pollution specialist ? Dr Bender 4. Hx of [...] sx d/t infection who presents to the [facility] from [facility]. Pt called EMS and had them [...] July 01, 2018 TIME: 11:15 AM PAGER: [id number] CT ABDOMEN/PELVIS W Observed: 07/01/2018 Status: F [facility] [place] [address] Patient: DAHLIA MARINO Phone#: : 1970 Age: 47 Gender: F Pt. Type: ER Account: [id number] Location: 2 Ordering: DOROTEO TABOR Exam Date: 07/01/2018/0:28 Family Phys: MARLO Pj LANG Charge Code: 017821 Physician: Hawkins Order #: [id number] DLP Dose#: 9.80 PROCEDURE: CT ABDOMEN/PELVIS WITH [...] 47 Gender: F Pt. Type: ER Account: [id number] Location: 052 Ordering: DOROTEO TABOR Exam Date: 07/01/2018/0:28 Family Phys: MARLO LANG Charge Code: 407417 Physician: Hawkins Order #: [id number] DLP Dose#: 9.80 ABDOMINAL WALL: Normal. No [...] 8:50 URINALYSIS Collected: 07/01/2018 Status: F Source: [facility] 12:[address] [facility] REPOSITORY TYPE CODE TESTS RESULT OUT [...] Urobilinog(LOINC) NORMAL: NORMAL Urobilinog NORM LAB Sp Shobonier(LOINC) NORMAL: 1.010-1.030 Sp Shobonier 1.015 LAB Nitrite(LOINC) NORMAL: NEGATIVE Nitrite NEG [...] LAB Yeast(LOINC) Yeast NONE Performed By: #### [id number] #### [facility],[address] [place] [address] Observed: 06/30/2018 Status: F Source: KASHIF KEITA CULTURE BLOOD 11:[address] [facility] REPOSITORY CULTURE BLOOD CULTURE BLOOD SET: 2 of 2 24HOUR REPORT NEGATIVE 48HOUR REPORT NEGATIVE 72HOUR REPORT NEGATIVE M I C R O B I O L O G Y R E P O R T FINAL Antimicrobial Susceptibility and Organism Identification Report Specimen Number : [id number] Requested : 06/30/18 Specimen Source : BLOOD Collected : 06/30/18 23:25 [place]p[facility] of Isolation : Emergency Room Received : 06/30/18 23:25 Requesting Physician : christina Patient/Specimen Tests and Comments Specimen Comments FINAL REPORT: No Growth at 5 Days Tech : Source : BLOOD ID # : [id number] FINAL Report Date : / / : Collected : 06/30/18 23:25 07/06/18.1142.BKO. 07/06/18.1142.BKO.COMPLETE Performed By: #### [id number] #### [facility],[address] [place] [address] CBC Collected: 06/30/2018 Status: F Source: [facility] 10:[address] [facility] REPOSITORY TYPE CODE TESTS RESULT OUT [...] x10EE3/U L Neut # High 10.00 LAB Blackford #(LOINC) 0.20 - 1.00 x10EE3/U L Blackford # High 1.30 LAB EO #(LOINC) 0.00 - 0.50 x10EE3/U L EO # 0.00 LAB Baso #(LOINC) 0.00 - 0.10 x10EE3/U L Baso # 0.10 LAB MANUAL DIFF([facility]) MANUAL DIFF N/A LAB MORPHOLOGY(INC ) MORPHOLOGY N/A Result Comment: {CD] Performed By: #### [id number] #### [place] [address] LACTATE Collected: 06/30/2018 Status: F Source: [facility] 10:[address] [facility] REPOSITORY TYPE CODE TESTS RESULT OUT OF REFERENCE UNITS RANGE LAB LACTATE(MESSI 4.5 - 18.0 mg/dL NC) Low LACTATE 4.3 Performed By: #### [id number] #### [place] [address] CMP WITH EGFR Collected: 06/30/2018 Status: F Source: [facility] 10:[address] [facility] REPOSITORY TYPE CODE TESTS RESULT OUT [...] OF AGE AND OLDER. Performed By: #### [id number] #### [place] [id number] LIPASE Collected: 06/30/2018 Status: F Source: [facility] 10:45 [facility] REPOSITORY TYPE CODE TESTS RESULT OUT OF REFERENCE UNITS RANGE LAB LIPASE(LOIN 18.0 - 51.0 U/L C) LIPASE 18.0 Performed By: #### [id number] #### [place] [id number] TROPONIN Collected: 06/30/2018 Status: F Source: [facility] 10:45 [facility] REPOSITORY TYPE CODE TESTS RESULT [...] such as heterophile antibodies). Performed By: #### [id number] #### [facility],[address] [place] [address] TSH Collected: 06/30/2018 Status: F Source: [facility] 10:[address] [facility] REPOSITORY TYPE CODE TESTS RESULT OUT OF RANGE REFERENCE UNITS LAB TSH(LOINC) 0.34 - 5.60 uIU/ml Low TSH 0.17 Performed By: #### [id number] #### [place] [id number] Observed: 06/30/2018 Status: F Source: [facility] CULTURE BLOOD 10:45 [facility] REPOSITORY CULTURE BLOOD CULTURE BLOOD SET: 1 of 2 24HOUR REPORT NEGATIVE 48HOUR REPORT NEGATIVE 72HOUR REPORT NEGATIVE M I C R O B I O L O G Y R E P O R T FINAL Antimicrobial Susceptibility and Organism Identification Report Specimen Number : [id number] Requested : 06/30/18 Specimen Source : BLOOD Collected : 06/30/18 22:45 Demp[place] of Isolation : Emergency Room Received : 06/30/18 22:45 Requesting Physician : christina Patient/Specimen Tests and Comments Specimen Comments FINAL REPORT: No Growth at 5 Days Tech : Source : BLOOD ID # : [id number] FINAL Report Date : / / : Collected : 06/30/18 22:45 07/06/18.1142.BKO. 07/06/18.1142.BKO.COMPLETE Performed By: #### [id number] #### [facility],[address] [place] [address] EMERGENCY REPORT Observed: 06/30/2018 Status: F Source: [facility] 9:55 PM [facility] EMERGENCY ROOM REPORT NAME ACCOUNT SEX AGE ADMIT DISCHARGE PT MED. RECORD# NUMBER DATE DATE TYPE DAHLIA MARINO [id number] F 47 06/30/18 07/01/18 3 R [id number] ROOM: ER DATE OF : 1970 DICTATING [...] first contacted our surgical service here at [facility], who due to this patient's complicated medical history suggested transfer to [facility] in [place]. I then contacted [place], who suggested contacting the [facility] due to her complicated history. I then contacted [facility], who was agreeable with accepting the patient. The patient was monitored in our Emergency Department throughout the night and then transferred in stable condition. Dictated By: Doroteo Tabor DO 07/01/18 07:00 JOB #: [id number] Transcribed By: jen 07/01/18 09:44 Electronically signed by: E-SIGN: Doroteo Tabor D.O. 07/08/18 06:49 Page 2 of 2 DAHLIA MARINO Emergency Room Report EMERGENCY REPORT Observed: 06/30/2018 Status: F Source: [facility] 9:55 PM [facility] EMERGENCY ROOM REPORT NAME ACCOUNT SEX AGE ADMIT DISCHARGE PT MED. RECORD# NUMBER DATE DATE TYPE DAHLIA MARINO [id number] F 47 06/30/18 07/01/18 3 R [id number] ROOM: ER DATE OF : 1970 DICTATING [...] Lore Mujica DO 07/01/18 08:22 JOB #: [id number] Transcribed By: jen 07/01/18 10:00 Electronically signed by: E-Sign: LORE MUJICA MD 07/12/18 12:00 Page 1 of 1 DAHLIA MARINO Emergency Room Report EMERGENCY DEPARTMENT Observed: 05/11/2018 Status: F Source: [place] RE[facility] 4:14 PM [facility] [place] [address] HEALTH INFORMATION MANAGEMENT EMERGENCY DEPARTMENT REPORT Patient: DAHLIA MARINO KATIA TAMEZ D.O. [id number] [age] F Status: DEP ER ED Date of Service: 05/08/18 CHIEF COMPLAINT A 47-year-old female. Chief complaint: Vaginal problem. HISTORY OF PRESENT ILLNESS The patient says she has had a recurrent yeast infection. She has had a discolored discharge. She has had a hysterectomy. She does not have a band shover. No other complaints. No abdominal pain, just [...] I am going to refer her to [facility] for followup. <Electronically signed by KATIA TAMEZ D.O.> 05/12/18 0538 KATIA TAMEZ D.O. cc: KATIA TAMEZ D.O. << Signature on File>> Reported By: KATIA TAMEZ D.O. Signed By: KATIA TAMEZ D.O. Tests performed at: [address] [address] ED PROV NOTE Observed: 05/11/2018 Status: COMPLETED Source: [facility] 4:14 PM [facility] REPOSITORY HNO ID: [id number] Author: Katia Tamez Service: (none) Author Type: Physician Type: ED Provider Notes Filed: 06/23/2018 9:00 PM Note Text: [place] [address] HEALTH INFORMATION MANAGEMENT EMERGENCY DEPARTMENT REPORT Patient: DAHLIA MARINO KATIA TAMEZ D.O. [id number] [age] F Status: [facility] ER ED Date of Service: 05/08/18 CHIEF COMPLAINT A 47-year-old female. Chief complaint: Vaginal problem. HISTORY OF PRESENT ILLNESS The patient says she has had a recurrent yeast infection. She has had a discolored discharge. She has had a hysterectomy. She does not have a band shover. No other complaints. No abdominal pain, just [...] I am going to refer her to [facility] for followup. <Electronically signed by KATIA TAMEZ D.O.> 05/12/18 0538 KATIA TAMEZ D.O. cc: KATIA TAMEZ D.O. << Signature on File>> Reported By: KATIA TAMEZ D.O. Signed By: KATIA TAMEZ D.O. Tests performed at: [address] [address] Observed: 05/08/2018 Status: F Source: [facility] WET PREP 3:09 AM HOSPITAL REPOSITORY WET PREP FEW EPITHELIAL CELLS MANY WBC'S FEW RBC'S NEGATIVE FOR YEAST NEGATIVE FOR TRICHOMONAS Performed By: #### M100.0300 #### [facility] [address] [place] [address] EMERGENCY REPORT Observed: 01/09/2018 Status: F Source: KASHIF KEITA 7:[address] [facility] REPOSITORY [facility] EMERGENCY ROOM REPORT NAME ACCOUNT SEX AGE ADMIT DISCHARGE PT MED. RECORD# NUMBER DATE DATE TYPE DAHLIA MARINO [id number] F 47 12/28/17 12/28/17 3 R [id number] ROOM: ER DATE OF : 1970 DICTATING [...] the coronary arteries by Dr. Haque in [place]. She states that she has had an [...] sinus mechanism without an evidence of acute AR. Rate was 93 and this was done [...] Mor Douglass DO 12/28/17 06:44 JOB #: [id number] Transcribed By: sp 12/29/17 05:54 Electronically signed by: E-SIGN MOR RAFAT ARSHAD 01/09/18 19:10 Page 2 of 2 NED DAHLIA R Emergency Room Report CBC Collected: 12/28/2017 Status: F Source: K[facility] KEITA 4:[address] [facility] REPOSITORY TYPE CODE TESTS RESULT OUT [...] x10EE3/U L Neut # High 10.70 LAB Blackford #(LOINC) 0.20 - 1.00 x10EE3/U L Blackford # 0.50 LAB EO #(LOINC) 0.00 - 0.50 x10EE3/U L EO # 0.10 LAB Baso #(LOINC) 0.00 - 0.10 x10EE3/U L Baso # 0.00 LAB MANUAL DIFF(LOINC) MANUAL DIFF N/A LAB MORPHOLOGY(LOINC ) MORPHOLOGY N/A Result Comment: {CD] Performed By: #### [id number] #### [facility],[address] [place] [address] CMP WITH EGFR Collected: 12/28/2017 Status: F Source: [facility] 4:[address] [facility] REPOSITORY TYPE CODE TESTS RESULT OUT [...] OF AGE AND OLDER. Performed By: #### 091963 #### [place] [address] LIPASE Collected: 12/28/2017 Status: F Source: [facility] 4:10 [facility] REPOSITORY TYPE CODE TESTS RESULT OUT OF REFERENCE UNITS RANGE LAB LIPASE(LOIN 18.0 - 51.0 U/L C) LIPASE 25.0 Performed By: #### 107645 #### [place] [address] TROPONIN Collected: 12/28/2017 Status: F Source: [facility] 4:10 [facility] REPOSITORY TYPE CODE TESTS RESULT OUT [...] such as heterophile antibodies). Performed By: #### [id number] #### [place] [id number] ALLERGIES ALLERGIES DATE TYPE / NAME / CODE REACTION SEVERITY SOURCE CODE 08/29/2018 Drug doxycycline/R930658 Other Unknown [place]ara Allergy/41 748(RXNORM) [facility] [id number]([facility]) Repository 08/29/2018 Drug erythromycin Hives Unknown [place] Allergy/41 base/[id number](RXN Community 0926503(SN ORM) [facility]) Repository 08/29/2018 Drug metronidazole/F0060 Other Unknown [place] Allergy/41 10933(RXNORM) [facility] 2386607([facility]) Repository 07/01/2018 DRUG DOXYCYCLINE SHORTNESS OF High [place] INGREDI/41 Clinic Other 8541104([facility]) Repository 07/01/2018 DRUG METRONIDAZOLE INTOLERANCE High [place] INGREDI/41 Clinic Other 2231837([facility]) Repository 07/01/2018 DRUG AZITHROMYCIN SHORTNESS OF High [place] INGREDI/41 Clinic Other 3727051([facility]ME [facility]) Repository NG/5154944 DOXYCYCLINE [facility] 06([facility]) Repository NG/1153935 METRONIDAZOLE [facility] 06([facility]) Repository NG/7471039 AZITHROMYCIN [facility] 06([facility]OM[facility]) Repository Drug DOXYCYCLINE/0506726 Moderate Kashif Pomerene Allergy/41 0(RXNORM) ([facility] 7773761(SN Modifier) [facility]) (Qualifier Repository Value) Drug FLAGYL/98303364(RXN Moderate Kashif [place] Allergy/41 ORM) ([facility] 5141120(SN Modifier) [facility]) (Qualifier Repository Value) Drug ERYTHROMYCIN/630040 Moderate Kashif Pomerene Allergy/41 26(RXNORM) ([facility] 0940831(SN Modifier) [facility]) (Qualifier Repository Value) ENCOUNTERS ENCOUNTERS ADMIT/DISCHARGE ACCOUNT NUMBER ADMITTING ENCOUNTER LOCATION SOURCE CLASS 09/06/2018 [id number] [facility] ding:MEDOUTP Repository 09/05/2018 [id number] Ambulatory [facility] ding:MEDOUTP Repository 09/05/2018 [id number] [facility] Repository 09/04/2018/09/04/[id number] ding:MEDOUTP Repository 09/03/2018/09/03/[id number] ding:MEDOUTP Repository 09/02/2018 [id number] [facility] Repository 09/01/2018 [id number] Ambulatory Samara Hubbard [facility] ding[facility]P Repository 09/01/2018 [id number] Emergency [facility] [place] [address] ERRoom: System [id number]: Repository [id number] 09/01/2018 [id number] Ambulatory [facility] System Repository 08/31/2018 [id number] Ambulatory Samara Hubbard [facility] ding:MED[facility]P Repository 08/30/2018 [id number] Ambulatory Samara Samara [facility] ding:MED[facility]P Repository 08/30/2018 [id number] Ambulatory [facility] System Repository 08/29/2018 [id number] Ambulatory Samara Hubbard [facility] ding:MED[facility]P Repository 08/28/2018/08/28/19 [id number] Ambulatory [place] Samara 19 [facility] ding:MED[facility]P Repository 08/27/2018/08/27/19 [id number] Ambulatory Samara Samara 19 [facility] ding:MED[facility]P Repository 08/26/2018 [id number] Ambulatory Samara Hubbard [facility] ding:MED[facility]P Repository 08/25/2018 [id number] Ambulatory Samara Samara [facility] ding:MED[facility]P Repository 08/25/2018 [id number] Ambulatory [facility] System Repository 08/24/2018 [id number] Ambulatory [place] Hubbard [facility] ding:MEDOUTP Repository 08/23/2018/08/23/19 [id number] Ambulatory [place] Samara 19 [facility] ding:MED[facility]P Repository 08/22/2018 [id number] Ambulatory Hubbard Samara [facility] ding:MED[facility]P Repository 08/21/2018/08/21/20 [id number] Ambulatory [place] Samara 18 [facility] ding:MED[facility]P Repository 08/20/2018/08/20/20 [id number] Ambulatory Samara Samara 18 [facility] ding:MED[facility]P Repository 08/19/2018 [id number] Ambulatory Samara Samara [facility] Repository 08/18/2018 [id number] Ambulatory Samara Hubbard [facility] ding:[facility]P Repository 08/17/2018 [id number] Ambulatory Hubbard Hubbard [facility] ding:MED[facility]P Repository 08/16/2018/08/16/20 [id number] Ambulatory Samara Samara 18 [facility] ding:MED[facility]P Repository 08/15/2018 [id number] Ambulatory Samara Hubbard [facility] ding:MED[facility]P Repository 08/14/2018/08/14/20 [id number] Ambulatory Samara Samara 18 [facility] ding:MEDOUTP Repository 08/13/2018/08/13/20 [id number] Ambulatory Samara Samara 18 [facility] ding:MEDOUTP Repository 08/12/2018 [id number] Ambulatory Hubbard Samara [facility] ding:MEDOUTP Repository 08/11/2018 [id number] Ambulatory Hubbard Samara [facility] ding:MEDOUTP Repository 08/10/2018 [id number] Ambulatory Samara Hubbard [facility] ding:MEDOUTP Repository 08/09/2018 [id number] Ambulatory Hubbard Hubbard [facility] ding:MED[facility]P Repository 08/08/2018 [id number] Ambulatory Samara Samara [facility] ding:MED[facility]P Repository 08/07/2018/08/07/20 [id number] Ambulatory Samara Samara 18 [facility] ding:MED[facility]P Repository 08/06/2018/08/06/20 [id number] Ambulatory [place] Samara 18 [facility] ding:MEDOUTP Repository 08/05/2018 [id number] Ambulatory Samara Samara [facility] ding:MED[facility]P Repository 08/04/2018 [id number] Ambulatory Samara Samara [facility] ding:MED[facility]P Repository 08/04/2018 [id number] Ambulatory [facility] System Repository 08/04/2018 [id number] Ambulatory [facility] System Repository 08/03/2018 [id number] [facility] ding[facility] Repository 08/02/2018 [id number] [facility]ulatory [facility] ding:[facility]P Repository 08/01/2018 [id number] [facility] ding:MED[facility]P Repository 07/31/2018/07/31/20 [id number] Ambulatory Samara Hubbard [address] [place] [address] [facility] ding:MEDOUTP Repository 07/30/2018/07/30/20 [id number] Ambulatory Samara Hubbard [address] [place] [address] [facility] ding:MEDOUTP Repository Room: [facility] 07/29/2018 [id number] [facility] ding:MED[facility]P Repository 07/29/2018 [id number] Ambulatory [facility] System Repository 07/28/2018 [id number] [facility]ulatory [facility] ding:MED[facility]P Repository 07/27/2018 [id number] [facility]ulatory [facility] ding:MED[facility]P Repository 07/26/2018 [id number] [facility] Repository 07/26/2018 [id number] Ambulatory [facility] System Repository 07/25/2018 [id number] [facility] ding:MED[facility]P Repository 07/24/2018/07/24/20 [id number] Ambulatory Samara Samara [address] [place] [address] [facility] ding:MEDOUTP Repository 07/23/2018/07/23/20 [id number] Ambulatory Samara Samara [address] [place] [address] [facility] ding:MEDOUTP Repository 07/22/2018 [id number] [facility] ding[facility]P Repository 07/21/2018 [id number] [facility] ding:MED[facility]P Repository 07/17/2018 [id number] Inpatient [facility] 4NRoom: System [id number]: Repository [id number] 07/02/2018 [id number] Inpatient Buildin[facility] Encounter 6WRoom: System [id number]: Repository [id number] 07/01/2018/07/02/20 [id number] TETYUK, Inpatient AKRON [facility] 18 PENELOPE Encounter [facility] MEDICAL Repository Candie nRoom: 7121Bed: 07/01/2018/07/02/20 [id number] TETY, Inpatient [place] 18 P[place]ELOPE Encounter Clinic Other [place] Repository 06/30/2018/07/01/20 [id number] CHRISTINA, Emergency [facility]in[address] [place] [address] 18 DOROTEO D Room: ERBed: [facility] Repository 05/08/2018/05/08/20 [id number] Emergency UNIBuilding: [address] Repository 12/28/2017/12/29/19 [id number] RAFAT, Emergency [facility] [place] [address] 18 MOR DO Room: ERBed: [facility] Repository PAYERS PAYERS ENCOUNTER GUARANTOR 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 SOURCE 09/06/2018 DAHLIA Hathaway Primary Insurance:SELF [facility]UNK [facility] Number: Effective [place] Date:2018-08-30 Repository [id number]: () 09/05/2018 DAHLIA R Primary Insurance:SELF NOT GIVENUNK [facility] Number: Effective [place] Date:2018-08-30 Repository [address]Oyj: () 09/05/2018 Dahlia Primary Dahlia NedDOB: [facility] BarkesDOB: Insurance:MedicarePoli [id number] System cy Number: Effective [facility] Date: [place], [place] [address]Ngj: () 09/05/2018 Secondary Dahlia BarkfrancisDOB: [facility] Insurance:MedicarePoli [id number] System cy Number: Effective Repository Date: 09/05/2018 Tertiary Dahlia BarkesDOB: [facility] Insurance:Self [id number] System PayPolicy Number: Repository Effective Date: 09/04/2018 DAHLIA R Primary Insurance:SELF NOT GIVENUNK Samara [id number] [facility] Number: Effective [place] Date:2018-08-30 Repository [id number]: (HP) 09/03/2018 DAHLIA R Primary Insurance:SELF NOT GIVENUNK Samara [id number] [facility] Number: Effective [place] Date:2018-08-30 Repository [address]Tbd: (HP) 09/02/2018 DAHLIA R Primary Insurance:SELF NOT GIVENUNK Hubbard [id number] [facility] Number: Effective [place] Date:2018-08-30 Repository [address]Uwn: (HP) 09/01/2018 DAHLIA R Primary Insurance:SELF NOT GIVENUNK Samara [id number] [facility] [place] Date:2018-08-30 Repository [address]Dec: (HP) 09/01/2018 Dahlia Primary Dahlia BarkesDOB[facility] BarkesDOB: Insurance:MedicarePoli [id number] System cy Number: Effective [facility] Date: [place], [place] [address]Yyq: () 09/01/2018 Secondary Dahlia BarkesDOB: [facility] Insurance:Self [id number] System PayPolicy Number: Repository Effective Date: 09/01/2018 Dahlia Primary Dahlia BarkesDOB: [facility] BarkesDOB: Insurance:MedicarePoli [id number] System cy Number: Effective Repository [place] Date: [place], [place] [address]Bpb: (HP) 09/01/2018 Secondary Dahlia BarkesDOB: [facility] Insurance:Self [id number] System PayPolicy Number: Repository Effective Date: 08/31/2018 DAHLIA R Primary Insurance:SELF NOT GIVENUNK Hubbard [id number] [facility] Effective [facility] Date:2018-08-30 Repository [address]Uab: (HP) 08/30/2018 DAHLIA R Primary Insurance:SELF NOT GIVENUNK Samara [id number] [facility] Date:2018-08-24 Repository [address]Vrh: (HP) 08/30/2018 Dahlia Primary Dahlia MarinoDOB: [facility] BarkesDOB: Insurance:MedicarePoli [id number] System cy Number: Effective [facility] Date: [facility] [place] [address]Szk: (HP) 08/30/2018 Secondary Dahlia NancieB: [facility] Insurance:Self [id number] System PayPolicy Number: Repository Effective Date: 08/29/2018 DAHLIA R Primary Insurance:SELF NOT GIVENUNK Samara [id number] [facility] Date:2018-08-24 Repository [address]Ihr: (HP) 08/28/2018 DAHLIA R Primary Insurance:SELF NOT GIVENUNK Samara [id number] [facility] Date:2018-08-24 Repository [address]Hcx: (HP) 08/27/2018 DAHLIA R Primary Insurance:SELF NOT GIVENUNK Hubbard [id number] [facility]: Effective [facility] Date:2018-08-24 Repository [address]Tja: (HP) 08/26/2018 DAHLIA R Primary Insurance:SELF NOT GIVENUNK Samara [id number] [facility]: Effective [facility] Date:2018-08-24 Repository [address]Lhd: (HP) 08/25/2018 DAHLIA R Primary Insurance:SELF NOT GIVENUNK Samara [id number] [facility] Number: Effective [facility] Date:2018-08-24 Repository [address]Qxu: (HP) 08/25/2018 Dahlia Primary Dahlia MarinoB: [facility] BarkfrancisDOB: Insurance:MedicarePoli [id number] System cy Number: Effective [facility] Date: [place], [place] [address]Ale: (HP) 08/25/2018 Secondary Dahlia MarinoB: [facility] Insurance:Self [id number] System PayPolicy Number: Repository Effective Date: 08/24/2018 DAHLIA R Primary Insurance:SELF NOT GIVENUNK Samara [id number] [facility] Number: Effective [facility] Date:2018-08-22 Repository [address]4874Yvv: (HP) 08/23/2018 DAHLIA R Primary Insurance:SELF NOT GIVENUNK Hubbard [id number] [facility]: Effective [facility] Date:2018-08-09 Repository [address]Byk: (HP) 08/22/2018 DAHLIA R Primary Insurance:SELF NOT GIVENUNK Samara [id number] [facility]: Effective [facility] Date:2018-08-22 Repository [address]Zsn: (HP) 08/21/2018 DAHLIA R Primary Insurance:SELF NOT GIVENUNK Hubbard [id number] [facility] Number: Effective [facility] Date:2018-08-09 Repository 89745Wpr: (HP) 08/20/2018 DAHLIA R Primary Insurance:SELF NOT GIVENUNK Hubbard [id number] [facility] Number: Effective [facility] Date:2018-08-09 Repository [address]Qsm: (HP) 08/19/2018 DAHLIA R Primary Insurance:SELF NOT GIVENUNK Hubbard [id number] [facility] Number: Effective [facility] Date:2018-08-09 Repository [address]Wzj: (HP) 08/18/2018 DAHLIA R Primary DAHLIA R Hubbard [id number] Insurance:MEDICARE A BARKESDOB: [facility] Number: [id number] [place], [place] [id number] Repository [address]Yjo: 330) Date:2018-08-09 [phone] (HP) 08/18/2018 Secondary NOT GIVENUNK Hubbard Insurance:SELF PAY [facility] Number: Effective Repository Date:2018-08-09 08/17/2018 DAHLIA R Primary DAHLIA R Samara [id number] Insurance:MEDICARE A BARKESDOB: [facility] Number: [id number] [place], [place] [id number] Repository [address]Fhv: (379) Date:2018-08-09 [phone] (HP) 08/17/2018 Secondary NOT GIVENUNK Samara Insurance:SELF PAY [facility] Number: Effective Repository Date:2018-08-09 08/16/2018 DAHLIA R Primary DAHLIA R Hubbard [id number] Insurance:MEDICARE A BARKESDOB: [facility] Number: [id number] [place], [place] [id number] Repository [address]Sax: (330) Date:2018-08-09 [phone] (HP) 08/16/2018 Secondary NOT GIVENUNK Hubbard Insurance:SELF PAY [facility] Number: Effective Repository Date:2018-08-09 08/15/2018 DAHLIA R Primary Insurance:SELF NOT GIVENUNK Hubbard [id number] [facility] [place]: [place] Date:2018-08-09 Repository 193[address]Mqf: (HP) 08/14/2018 DAHLIA R Primary Insurance:SELF NOT GIVENUNK Hubbard [id number] [facility] [place]: [place] Date:2018-08-09 Repository [address]Vbl: (HP) 08/13/2018 DAHLIA R Primary Insurance:SELF NOT GIVENUNK Samara [id number] [facility] Number: Effective [facility] Date:2018-08-09 Repository [address]Sig: () 08/12/2018 DAHLIA R Primary Insurance:SELF NOT GIVENUNK Hubbard [id number] [facility] Number: Effective [facility] Date:2018-08-09 Repository 414[address]Vjj: () 08/11/2018 DAHLIA R Primary Insurance:SELF NOT GIVENUNK Samara [id number] [facility] Number: Effective [facility] Date:2018-08-09 Repository 665[address]Ijr: () 08/10/2018 DAHLIA R Primary Insurance:SELF NOT GIVENUNK Hubbard [id number] [facility] Number: Effective [facility] Date:2018-07-26 Repository 286[address]Lyt: () 08/09/2018 DAHLIA R Primary Insurance:SELF NOT GIVENUNK Samara [id number] [facility] Number: Effective [facility] Date:2018-07-26 Repository 29[address]Hij: () 08/08/2018 DAHLIA R Primary Insurance:SELF NOT GIVENUNK Hubbard [id number] [facility] Number: Effective [facility] Date:2018-07-26 Repository 14691Ygu: () 08/07/2018 DAHLIA R Primary Insurance:SELF NOT GIVENUNK Hubbard [id number] [facility] Number: Effective [facility] Date:2018-07-26 Repository 11156Alg: () 08/06/2018 DAHLIA R Primary Insurance:SELF NOT GIVENUNK Samara [id number] [facility]: Effective [facility] Date:2018-07-26 Repository 301[address]Yld: (HP) 08/05/2018 DAHLIA R Primary Insurance:SELF NOT GIVENUNK Samara [id number] [facility] [place]: [place] Date:2018-07-26 Repository 81159Ull: (HP) 08/04/2018 DAHLIA R Primary Insurance:SELF NOT GIVENUNK Samara [id number] [facility] Number: [place] Date:2018-07-26 Repository [address]Cct: (HP) 08/04/2018 Dahlia Primary Dahlia BarkesDOB: [facility] BarkesDOB: Insurance:MedicarePoli [id number] System cy Number: Effective [facility] Date: [place], [place] [address]Bec: () 08/04/2018 Secondary Dahlia BarkesDOB: [facility] Insurance:Self [id number] System PayPolicy Number: Repository Effective Date: 08/04/2018 Dahlia Primary Dahlia BarkesDOB: [facility] BarkesDOB: Insurance:MedicarePoli [id number] System cy Number: Effective [facility] Date: [place], [place] [address]Ute: () 08/04/2018 Secondary Dahlia BarkesDOB: [facility] Insurance:Self [id number] System PayPolicy Number: Repository Effective Date: 08/03/2018 DAHLIA R Primary Insurance:SELF NOT GIVENUNK Hubbard [id number] [facility]: Effective [facility] [place] Date:2018-07-26 Repository [address]Oqh: (HP) 08/02/2018 DAHLIA R Primary Insurance:SELF NOT GIVENUNK Hubbard [id number] [facility] Number: Effective [facility] [place] Date:2018-07-26 Repository 09[address]Yyu: () 08/01/2018 DAHLIA R Primary DAHLIA R Samara [id number] Insurance:MEDICARE A BARKESDOB: [facility] ONLYPolicy Number: [id number] [place], [place] [id number] Repository [address]Vhn: (330) Date:2018-07-26 [phone] (HP) 08/01/2018 Secondary NOT GIVENUNK Hubbard Insurance:SELF PAY [facility] Number: Effective Repository Date:2018-07-26 07/31/2018 DAHLIA Hathaway Primary DAHLIA Hathaway Hubbard [id number] Insurance:MEDICARE A BARKESDOB: [facility] ONLYPolicy Number: [id number] [place], [place] [id number] Repository 139[address]Kzh: (330) Date:2018-07-26 [phone] (HP) 07/31/2018 Secondary NOT GIVENUNK Hubbard Insurance:SELF PAY [facility] Number: Effective Repository Date:2018-07-26 07/30/2018 DAHLIA Hathaway Primary DAHLIA Hathaway Samara [id number] Insurance:MEDICARE A BARKESDOB: [facility] Number: [id number] [place], [place] [id number] Repository [address]Gdc: (330) Date:2018-07-26 [phone] () 07/30/2018 Secondary NOT GIVENUNK Hubbard Insurance:SELF PAY [facility] Number: Effective Repository Date:2018-07-26 07/29/2018 DAHLIA Hathaway Primary DAHLIA Hathaway Samara [id number] Insurance:MEDICARE A BARKESDOB: [facility] Number: [id number] [place], [place] [id number] Repository [address]Hag: (330) Date:2018-07-26 [phone] (HP) 07/29/2018 Secondary NOT GIVENUNK Hubbard Insurance:SELF PAY [facility] Number: Effective Repository Date:2018-07-26 07/29/2018 Dahlia Villagomez BarkesDOB: [facility] BarkesDOB: Insurance:MedicarePoli [id number] System cy Number: Effective Repository [place] Date: [place], [place] [address]Twk: (HP) 07/28/2018 DAHLIA R Primary DAHLIA R Samara [id number] Insurance:MEDICARE A BARKESDOB: [facility] ONLYPolicy Number: [id number] [place], [place] [id number] Repository [address]Iqp: (330) Date:2018-07-26 [phone] (HP) 07/28/2018 Secondary NOT GIVENUNK Hubbard Insurance:SELF PAY [facility] Effective Repository Date:2018-07-26 07/27/2018 DAHLIA R Primary Insurance:SELF NOT GIVENUNK Hubbard [id number] [facility] [place] Date:2018-07-26 Repository [address]Fcb: (HP) 07/26/2018 DAHLIA R Primary DAHLIA R Samara [id number] Insurance:MEDICARE A BARKESDOB: [facility] Number: [id number] [place], [place] [id number] Repository [address]Goq: (330) Date:2018-07-26 [phone] (HP) 07/26/2018 Secondary NOT GIVENUNK Samara Insurance:SELF PAY [facility] Effective Repository Date:2018-07-26 07/26/2018 Dahlia Primary Dahlia BarkesDOB: [facility] BarkesDOB: Insurance:MedicarePoli [id number] System cy Number: Effective [facility] Date: [place], [place] [address]Stp: (HP) 07/26/2018 Secondary Dahlia BarkesDOB: [facility] Insurance:Self [id number] System PayPolicy Number: Repository Effective Date: 07/25/2018 DAHLIA R Primary DAHLIA R Hubbard [id number] Insurance:MEDICARE A BARKESDOB: [facility] Number: [id number] [place], [place] [id number] Repository [address]Jpk: (330) Date:2018-07-20 [phone] () 07/25/2018 Secondary NOT GIVENUNK Samara Insurance:SELF [facility]Y [facility] Number: Effective Repository Date:2018-07-20 07/24/2018 DAHLIA R Primary DAHLIA R Hubbard [id number] Insurance:MEDICARE A BARKESDOB: [facility] Number: [id number] [place] [id number] Repository [address]Css: (026) Date:2018-07-20 [phone] (HP) 07/24/2018 Secondary NOT GIVENUNK Samara Insurance:SELF PAY [facility]: Effective Repository Date:2018-07-20 07/23/2018 DAHLIA R Primary Insurance:SELF NOT GIVENUNK Samara [id number] [facility] [place]: [place]:2018-07-20 Repository [address]95[address]Yoq: (HP) 07/22/2018 DAHLIA R Primary Insurance:SELF NOT GIVENUNK Samara [id number] [facility]Y [facility] Number: [place]:2018-07-20 Repository [address]3439Vzi: (HP) 07/21/2018 DAHLIA R Primary Insurance:SELF NOT GIVENUNK Samara [id number] [facility] Number: [place]:2018-07-20 Repository [address]Tjk: (HP) 07/17/2018 Dahlia Primary Dahlia BarkesDOB: [facility] BarkesDOB: Insurance:MedicarePoli [id number] System cy Number: Effective Repository [place] Date: [place], [place] [address]Hnj: (HP) 07/02/2018 [facility] Primary Dahlia BarkesDOB: [facility] BarkesDOB: Insurance:MedicarePoli [id number] System cy Number: Effective [facility] Date: [place], [place] [address]Alz: (HP) 07/02/2018 Secondary Dahlia BarkesDOB: [facility] Insurance:Self [id number] System PayPolicy Number: Repository Effective Date: 07/01/2018 DAHLIA R [facility]ARE BARKESDOB: [facility] APolicy Number: [id number] Repository [place] [id number] [place], [place] Date: [address]Dqa: () 06/30/2018 DAHLIA R Primary DAHLIA R Kashiflucinda Bennettzeinab BARKESDOB: Insurance:MEDICARE BARKESDOB: [facility] [id number] [facility] Number: [place] Repository [place], [place] [id number] [place] [id number]: Date:Plan Name: [id number] () 05/08/2018 DAHLIA R Primary DAHLIA R [facility] [id number] Insurance:[facility]ICARE [facility]K [facility] [place] [facility] Repository [place], [place] Number: [address]Nwp: (237) [id number] [phone] (HP) Date: 12/28/2017 DAHLIA R Primary DAHLIA R Kashiflucinda Bennettzeinab BARKDOB: Insurance:MEDICARE BARKESDOB: [facility]Jeff[facility] [id number] [place] [address] Number: [place] Repository [place], [place] [id number] [place] [id number]: Date:Plan Name: [id number] ()
== END ==
LOC: MEDOUTP 13:56
PROVIDERS: Referring Provider Internal Medicine Infectious Disease; Visit Provider Internal Medicine Infectious Disease
DX: K65.1 Peritoneal abscess (principal)
CPT/HCPCS: 96365; J7050; A4216

== ENCOUNTER → 2018-08-09 13:51 | Outpatient (CLI) | payer SELFPAY ==
[2018-07-26 13:51] VITALS: BMI 24.3
[2018-08-08 14:12] VITALS: BMI 24.3
[2018-08-09 14:20] VITALS: BP 119/69; PULSE 81; RESP 18; TEMP 37.1; O2SAT 97; BMI 24.3
--- OUTSIDE RECORDS SUMMARY | 2018-11-11 01:17 | XMS RPT_ITS ---
:1970 Author Organization OHIP Support Name Relationship Address Phone NILDA MARINOT Unavailable [address] [place] [address] + [place] [address] BROWN, DINAH Unavailable Unavailable + D Unavailable Unavailable Unavailable BARKES, MARS Unavailable [address] [facility] + [place] [address] BROWN, DINAH Unavailable Unavailable + D Unavailable Unavailable Unavailable Barkes, Mras Unavailable Unavailable + Brown, Dinah Unavailable Unavailable + BARKES, MARS Unavailable [address] + [place] [address] BROWN, DINAH Unavailable Unavailable + D Unavailable Unavailable Unavailable BARKES, MARS Unavailable [address] + [place] [address] BROWN, DINAH Unavailable Unavailable + D Unavailable Unavailable Unavailable BARKES, MARS Unavailable [address] + [place] [address] BROWN, DINAH Unavailable Unavailable + D Unavailable Unavailable Unavailable BARKES, MARS Unavailable [address] [place] [address] ST + [place] [address] BROWN, DINAH Unavailable Unavailable + D Unavailable Unavailable Unavailable Barkes, Mars Unavailable Unavailable + Brown, Dinah Unavailable Unavailable + Barkes, Mars Unavailable Unavailable + Brown, Dinah Unavailable Unavailable + BARKES, MARS Unavailable [address] + [place] [address] BROWN, DINAH Unavailable Unavailable + D Unavailable Unavailable Unavailable BARKES, MARS Unavailable [address] [facility] [address] + [place] [address] BROWN, DINAH Unavailable Unavailable + D Unavailable Unavailable Unavailable Barkes, Mars Unavailable Unavailable + Brown, Dinah Unavailable Unavailable + BARKES, MARS Unavailable [address] + [place] [address] BROWN, DINAH Unavailable Unavailable + D Unavailable Unavailable Unavailable BARKES, MARS Unavailable [address] + [place] [address] BROWN, DINAH Unavailable Unavailable + D Unavailable Unavailable Unavailable BARKES, MARS Unavailable [address] + [place] [address] BROWN, DINAH Unavailable Unavailable + D Unavailable Unavailable Unavailable BARKES, MARS Unavailable [address] + [place] [address] BROWN, DINAH Unavailable Unavailable + D Unavailable Unavailable Unavailable BARKES, MARS Unavailable [address] + [place] [address] BROWN, DINAH Unavailable Unavailable + D Unavailable Unavailable Unavailable Barkes, Mars Unavailable Unavailable + Brown, Dinah Unavailable Unavailable + BARKES, MARS Unavailable [address] + [place] [address] BROWN, DINAH Unavailable Unavailable + D Unavailable Unavailable Unavailable BARKES, MARS Unavailable [address] + [place] [address] BROWN, DINAH Unavailable Unavailable + D Unavailable Unavailable Unavailable BARKES, MARS Unavailable [address] + [place] [address] BROWN, DINAH Unavailable Unavailable + D Unavailable Unavailable Unavailable BARKES, MARS Unavailable [address] + [place] [address] BROWN, DINAH Unavailable Unavailable + D Unavailable Unavailable Unavailable BARKES, MARS Unavailable [address] + [place] [address] BROWN, DINAH Unavailable Unavailable + D Unavailable Unavailable Unavailable BARKES, MARS Unavailable [address] + [place] [address] BROWN, DINAH Unavailable Unavailable + D Unavailable Unavailable Unavailable BARKES, MARS Unavailable [address] + [place] [address] BROWN, DINAH Unavailable Unavailable + D Unavailable Unavailable Unavailable BARKES, MARS Unavailable [address] [facility] [address] + [place] [address] BROWN, DINAH Unavailable Unavailable + D Unavailable Unavailable Unavailable BARKES, MARS Unavailable [address] + [place] [address] BROWN, DINAH Unavailable Unavailable + D Unavailable Unavailable Unavailable BARKES, MARS Unavailable [address] + [place] [address] BROWN, DINAH Unavailable Unavailable + D Unavailable Unavailable Unavailable BARKES, MARS Unavailable [address] [address] + [place] [address] BROWN, DINAH Unavailable Unavailable + D Unavailable Unavailable Unavailable BARKES, MARS Unavailable [address] + [place] [address] BROWN, DINAH Unavailable Unavailable + D Unavailable Unavailable Unavailable BARKES, MARS Unavailable [address] + [place] [address] BROWN, DINAH Unavailable Unavailable + D Unavailable Unavailable Unavailable BARKES, MARS Unavailable [address] + [place] [address] BROWN, DINAH Unavailable Unavailable + D Unavailable Unavailable Unavailable BARKES, MARS Unavailable [address] + [place] [address] BROWN, DINAH Unavailable Unavailable + D Unavailable Unavailable Unavailable BARKES, MARS Unavailable [address] + [place] [address] BROWN, DINAH Unavailable Unavailable + D Unavailable Unavailable Unavailable BARKES, MARS Unavailable [address] + [place] [address] BROWN, DINAH Unavailable Unavailable + D Unavailable Unavailable Unavailable BARKES, MARS Unavailable [address] + [place] [address] BROWN, DINAH Unavailable Unavailable + D Unavailable Unavailable Unavailable BARKES, MARS Unavailable [address] + [place] [address] BROWN, DINAH Unavailable Unavailable + D Unavailable Unavailable Unavailable BARKES, MARS Unavailable [address] + [place] [address] BROWN, DINAH Unavailable Unavailable + D Unavailable Unavailable Unavailable BARKES, MARS Unavailable [address] + [place] [address] BROWN, DINAH Unavailable Unavailable + D Unavailable Unavailable Unavailable Barkes, Mars Unavailable Unavailable + Brown, Dinah Unavailable Unavailable + Barkes, Mars Unavailable Unavailable + Brown, Dianh Unavailable Unavailable + BARKES, MARS Unavailable [address] + [place] [address] BROWN, DINAH Unavailable Unavailable + D Unavailable Unavailable Unavailable BARKES, MARS Unavailable [address] + [place] [address] BROWN, DINAH Unavailable Unavailable + D Unavailable Unavailable Unavailable BARKES, MARS Unavailable [address] + [place] [address] BROWN, DINAH Unavailable Unavailable + D Unavailable Unavailable Unavailable BARKES, MARS Unavailable [address] + [place] [address] BROWN, DINAH Unavailable Unavailable + D Unavailable Unavailable Unavailable BARKES, MARS Unavailable [address] + [place] [address] BROWN, DINAH Unavailable Unavailable + D Unavailable Unavailable Unavailable BARKES, MARS Unavailable [address] + [place] [address] BROWN, DINAH Unavailable Unavailable + D Unavailable Unavailable Unavailable Barkes, Mars Unavailable Unavailable + Brown, Dinah Unavailable Unavailable + BARKES, MARS Unavailable [address] + [place] [address] BROWN, DINAH Unavailable Unavailable + D Unavailable Unavailable Unavailable BARKES, MASR Unavailable [address] + [place] [address] BROWN, DINAH Unavailable Unavailable + D Unavailable Unavailable Unavailable BARKES, MARS Unavailable [address] + [place] [address] BROWN, DINAH Unavailable Unavailable + D Unavailable Unavailable Unavailable Barkes, Mars Unavailable Unavailable + Brown, Dinah Unavailable Unavailable + BARKES, MARS Unavailable [address] + [place] [address] BROWN, DINAH Unavailable Unavailable + D Unavailable Unavailable Unavailable BARKES, MARS Unavailable [address] [place] [address] ST + [place] [address] BROWN, DINAH Unavailable Unavailable + D Unavailable [...] Unavailable [address] + [place], [place] [id number] BARKES, MARS Unavailable Unavailable Unavailable NOT GIVEN Unavailable Unavailable Unavailable BARKES, LANCE Unavailable [address] + [place], [place] [id number] BARKES, MARS Unavailable Unavailable Unavailable NOT GIVEN [...] SOURCE 09/01/2018 Admitting Hypokalemia / Hashiguchi, Active [facility] Diagnosis E87.6(ICD-10) [facility] Repository 08/30/2018 Admitting 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, 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 I, Micheline System unspecified / Repository G90.50(ICD-10) 08/30/2018 Admitting Personal history of Cullado, Active [facility] Diagnosis nicotine dependence [facility] System / Z87.891(ICD-10) Repository 08/30/2018 Admitting Fibromyalgia / Cullado, Active [facility] Diagnosis M79.7(ICD-10) [facility] System Repository 08/30/2018 Admitting Hypothyroidism, Cullado, Active [facility] Diagnosis unspecified / [facility] System E03.9(ICD-10) Repository 08/30/2018 Admitting Presence of coronary Cullado, Active [facility] Diagnosis angioplasty implant Mic[facility] System [...] 08/04/2018 Admitting Other ascites / Hashiguchi, Active [facility] Diagnosis R18.8(ICD-10) [facility] Repository 08/04/2018 Admitting Abnormal findings on Hashiguchi, Active [facility] dx imaging of oth [facility] body structures / Repository R93.89(ICD-10) 08/04/2018 Admitting Abnormal findings on Hashiguchi, Active [facility] Diagnosis dx imaging of prt [facility] digestive tract / Repository R93.3(ICD-10) 08/04/2018 Admitting Candidiasis of vulva Hashiguchi, Active [facility] and vagina / [facility] B37.3(ICD-10) Repository 08/04/2018 Admitting Crohn's disease of Hashiguchi, Active [facility] Diagnosis both small and lg [facility] int w oth Repository complication / K50.818(ICD-10) 07/26/2018 Admitting Encntr for f/u exam Hashiguchi, Active [facility] Diagnosis aft trtmt for cond [facility] oth than malig Repository neoplm / Z09(ICD-10) 07/17/2018 Admitting Peritoneal abscess / Zaugg, Active [facility] Diagnosis K65.1(ICD-10) System Repository 07/17/2018 Admitting Urinary tract Zaugg, Active [facility] Diagnosis infection, site not System specified / Repository N39.0(ICD-10) 07/17/2018 Admitting Hypomagnesemia / Zaugg, Active [facility] Diagnosis E83.42(ICD-10) System Repository 07/17/2018 Admitting Cutaneous abscess of Zaugg, Active [facility] Diagnosis abdominal wall / System L02.211(ICD-10) Repository 07/17/2018 Admitting Sepsis, unspecified Zaugg, Active [facility] organism / System A41.9(ICD-10) Repository 07/17/2018 Admitting Crohn's disease of Zaugg, Active [facility] Diagnosis both small and large System intestine w abscess Repository / K50.814(ICD-10) 07/17/2018 Admitting Postprocedural Zaugg, Active [facility] Diagnosis hypothyroidism / System E89.0(ICD-10) Repository 07/17/2018 Admitting Adverse effect of Zaugg, Active [facility] Diagnosis unsp systemic System antibiotic, init Repository encntr / T36.95XA(ICD-10) 07/17/2018 Admitting group home (current) Zaugg, Active [facility] Diagnosis use of systemic System steroids / Repository Z79.52(ICD-10) 07/02/2018 Admitting Crohn's disease, Oscar, [facility] unspecified, with [facility] abscess / Repository K50.914(ICD-10) 07/02/2018 Admitting Unspecified severe Oscar, [facility] protein-calorie [facility] malnutrition / Repository E43(ICD-10) 07/02/2018 Admitting Athscl heart disease Oscar, [facility]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 Repository / I25.10(ICD-10) 07/02/2018 Admitting Body mass index Oscar, Active [facility] (BMI) 24.0-24.9, [facility] adult / Repository Z68.24(ICD-10) 07/02/2018 Admitting Abnormal weight loss Oscar, Active [facility] / R63.4(ICD-10) [facility] Repository 07/02/2018 Admitting Elevated white blood Oscar, [facility] cell count, [facility] unspecified / Repository D72.829(ICD-10) 07/02/2018 Admitting Anemia, unspecified Oscar, Active [facility] Diagnosis / D64.9(ICD-10) [facility] Repository 07/01/2018 Active Unknown / CORI, Active [facility] UNK(Unknown) [facility] Other [place] Repository 05/08/2018 Admitting Unknown / NA Active [facility] diagnosis UNK(Unknown) Hospital Repository 12/28/2017 Admitting Vomiting, OMLEY, 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 unspecified / DO [facility] R1110(ICD-10) Hospital Repository 12/28/2017 Principle Noninfective OMLEY, 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 gastroenteritis and DO [facility] colitis, unspecified Hospital / K529(ICD-10) Repository 12/28/2017 Secondary Crohn's disease, OMLEY, 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 unspecified, without DO [facility] complications / Hospital K5090(ICD-10) Repository 12/28/2017 Secondary Atherosclerotic OMLEY, 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[facility] [place] 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 Repository angina pectoris / I2510(ICD-10) 12/28/2017 Secondary Presence of coronary OMLEY, 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 angioplasty implant DO [facility] and graft / Hospital Z955(ICD-10) Repository PROCEDURES PROCEDURES No Procedure Records FoundRESULTS RESULTS RF URETHROCYSTOGRAPHY Observed: 09/07/2018 Status: F Source: 9+ VOIDING 9:51 AM SYSTEM REPOSITORY Patient Name: DAHLIA MARINO Fluoroscopy Exam Date/Time 09/05/2018 10:14:33 EST Exam RF Urethrocystography Voiding Ordering Physician MD DEUCE, MICHELINE Gaspar Accession Number [id number] CTP4 Codes 90000 () Reason For Exam concern for rectovaginal [...] 09/06/2018 Status: F Source: [place] 2:00 PM [facility] REPOSITORY TYPE CODE TESTS RESULT OUT OF [...] Lymph 1.55 Performed By: #### L100.0100 #### [facility] [address] [place], [address] COMPREHENSIVE METABOLIC Collected: 09/06/2018 Status: F Source: [facility] 2:00 PM [facility] REPOSITORY TYPE CODE TESTS RESULT OUT OF [...] Normal 8 Performed By: #### L500.4050 #### [facility] [address] [place], [address] ED PROVIDER NOTE Observed: 09/01/2018 Status: F Source: 9+ 1:20 PM SYSTEM REPOSITORY This patient presented [...] W/DIFF, AUTOMATED Collected: 08/31/2018 Status: F Source: [place] 2:15 PM [facility] REPOSITORY TYPE CODE TESTS RESULT OUT OF [...] Lymph 2.02 Performed By: #### L100.0100 #### [facility] [address] [place], [place], [address] COMPREHENSIVE METABOLIC Collected: 08/31/2018 Status: F Source: [facility] 2:15 PM [facility] REPOSITORY TYPE CODE TESTS RESULT OUT OF [...] 8 GAP Performed By: #### L500.4050 #### [facility] [address] [place] [address]. [place], [address] Observed: 08/30/2018 Status: F Source: [facility] SURGICAL PATHOLOGY 8:22 AM SYSTEM REPOSITORY [id number] [facility] PATHOLOGY AND LABORATORY MEDICINE [address] [place] [address] FINAL SURGICAL PATHOLOGY REPORT NAME: DAHLIA MARINO : 1970 48 Y F BILLING NO.: [id number] LOCATION: 1XEO PROCEDURE 08/30/2018 DATE: SURGEON: MICHELINE [...] characteristics determined by the clinical laboratories of [facility]. They have not been cleared by [...] negativity on decalcified specimens. Professional Performing Location: [address] [address]. DEPARTMENT OF PATHOLOGY AND LABORATORY MEDICINE [place], [place] [address] RF SMALL BOWEL W/ Observed: 08/25/2018 Status: F Source: [facility] SERIAL FILMS 2:30 PM SYSTEM REPOSITORY Patient Name: DAHLIA MARINO Fluoroscopy Exam Date/Time 08/25/2018 13:09:43 EST Exam RF Small Bowel w/ Serial Films Ordering Physician MD DEUCE, MICHELINE Gaspar Accession Number [id number] CTP4 Codes 10675 () Reason For Exam Crohn's Disease, rt. [...] 08/24/2018 Status: F Source: [place] 2:23 PM [facility] REPOSITORY TYPE CODE TESTS RESULT OUT [...] Lymph 2.16 Performed By: #### L100.0100 #### [facility] [address] [place], [address] COMPREHENSIVE METABOLIC Collected: 08/24/2018 Status: F Source: [facility] 2:23 PM [facility] REPOSITORY TYPE CODE TESTS RESULT OUT OF [...] by: MILES MARQUES TO MANASA AT DR. ANGLE'S OFFICE LAB L501.5900 98-107 mmol/L High CL 108 LAB L501.6100 21.0-32.0 mmol/L Normal CO2 26.0 LAB L501.6200 5-15 Normal GAP 10 Performed By: #### L500.4050 #### [facility] [address] [place], [address] CBC W/DIFF, AUTOMATED Collected: 08/17/2018 Status: F [...] Lymph 1.59 Performed By: #### L100.0100 #### [facility] [address] [place], [place], [address] COMPREHENSIVE METABOLIC Collected: 08/17/2018 Status: F Source: [facility] 1:44 PM [facility] REPOSITORY TYPE CODE TESTS RESULT OUT OF [...] GAP 8 Performed By: #### L500.4050 #### [facility] [address] [place], [address] CBC W/DIFF, AUTOMATED Collected: 08/10/2018 Status: F Source: [place] 2:22 PM [facility] REPOSITORY TYPE CODE TESTS RESULT OUT OF [...] Lymph 2.17 Performed By: #### L100.0100 #### [facility] [address] [place], [address] COMPREHENSIVE METABOLIC Collected: 08/10/2018 Status: F Source: [facility] 2:22 PM [facility] REPOSITORY TYPE CODE TESTS RESULT OUT OF [...] Normal 8 Performed By: #### L500.4050 #### [facility] [address] [facility] [place], [address] CT ABDOMEN/PELVIS W/ Observed: 08/04/2018 Status: F Source: 9+ CONTRAST 1:01 PM SYSTEM REPOSITORY Patient Name: DAHLIA MARINO CT Exam Date/Time 08/04/2018 12:09:[address] Abdomen/Pelvis w/ IV Contrast (IV Onl Ordering Physician MD MARCELA, JESSE Accession Number [id number] CPT4 Codes 78106 (CT Abdomen/Pelvis w/ IV Contrast (IV Onl), Q9967 (CT ISOVUE 370MG/[id number]) Reason For Exam RLQ phlegmon vs abscess [...] METABOLIC PANEL Collected: 08/04/2018 Status: F Source: 9+ 9:09 AM SYSTEM REPOSITORY TYPE CODE TESTS [...] Calcium 8.8 Performed By: #### BMP3 #### [facility] [address] [address] CBC W/DIFF, AUTOMATED Collected: 08/03/2018 Status: F Source: [place] 2:13 PM [facility] REPOSITORY TYPE CODE TESTS RESULT OUT OF [...] Lymph 1.92 Performed By: #### L100.0100 #### [facility] [address] [place], [place], [address] COMPREHENSIVE METABOLIC Collected: 08/03/2018 Status: F Source: [facility] 2:13 PM [facility] REPOSITORY TYPE CODE TESTS RESULT OUT OF [...] 9 GAP Performed By: #### L500.4050 #### [facility] [address] [place] [address]. [place], [place], [id number] CBC W/DIFF, AUTOMATED Collected: 07/27/2018 Status: F Source: [place] 2:06 PM [facility] REPOSITORY TYPE CODE TESTS RESULT OUT OF [...] Lymph 1.89 Performed By: #### L100.0100 #### [facility] [address] [place], [place], [address] COMPREHENSIVE METABOLIC Collected: 07/27/2018 Status: F Source: [facility] 2:06 PM [facility] REPOSITORY TYPE CODE TESTS RESULT OUT OF [...] Normal 7 Performed By: #### L500.4050 #### [facility] [address] [place], [address] CBC W/DIFF, AUTOMATED Collected: 07/21/2018 Status: F Source: [place] 2:35 PM [facility] REPOSITORY TYPE CODE TESTS RESULT OUT OF [...] Lymph 1.50 Performed By: #### L100.0100 #### [facility] [address] [place], [address] COMPREHENSIVE METABOLIC Collected: 07/21/2018 Status: F Source: [facility] 2:35 PM [facility] REPOSITORY TYPE CODE TESTS RESULT OUT OF [...] GAP 4 Performed By: #### L500.4050 #### [facility] [address] [place] [address]. [place], [place], [id number] CR CHEST PORTABLE Observed: 07/20/2018 Status: F Source: 9+ 6:44 PM SYSTEM REPOSITORY Patient Name: DAHLIA MARINO Diagnostic Radiology Exam Date/Time 07/20/2018 16:55:27 EST Exam CR Chest Portable Ordering Physician DO PINON KATHRYN C Accession Number [id number] CPT4 Codes 89786 () Reason For Exam Line placement Report [...] DISCHARGE SUMMARY Observed: 07/20/2018 Status: F Source: 9+ 1:18 PM SYSTEM REPOSITORY Attestation signed by [...] resections x8), hypothyroidism, FM. Presented to [facility] ED on 07/17/18 with worsening abdominal pain. Patient was admitted to [facility] ED in 07/10, discharged 07/04/18. During that [...] follow up with her GI doctor in [place], urged her to set up a follow up appointment soon after discharge. ID placed infusion orders for center in [place] with an appointment to start tomorrow. PROCEDURES: PICC placement CONSULTANTS: Interventional Radiology General Surgery Gastrointestinal Infectious Disease DISCHARGE MEDICATIONS: Dahlia Marino Home Medication Instructions MARLYN:[id number] Printed on:07/20/18 2125 Medication Information calcium-vitamin D (OSCAL) 250-125 MG-UNIT [...] Complexity: follow up within 7-14 calendar days ([address]) [x] Severe Complexity: follow up within 7 calendar days ([address]) FOLLOW UP TESTING, PENDING RESULTS OR REFERRALS AT TRANSITIONAL CARE VISIT: CT of abdomen after 2-3 weeks of abx [x] Yes [] No RECOMMENDED NEXT STEPS: Please follow up with Dr. Langston at [place] [facility] [place]/26/2018. Please follow up with your GI doctor in [place]. Please follow up with Dr. Micheline Tripathi of general surgery at [phone] as soon as possible for a follow up appointment in two weeks . DISPOSITION: Home Follow up with Dr. Langston at the [facility] [place] 10am [place] 07/26/2018. INSTRUCTIONS TO MA/SW: [...] frame. TIFERON Collected: 07/20/2018 Status: F Source: 9+ 11:02 AM SYSTEM REPOSITORY TYPE CODE TESTS RESULT OUT OF REFERENCE UNITS RANGE LAB QTF Negative NA Quantiferon Negative Performed By: #### QTF #### [facility] [address] [id number] HEMOGRAM Collected: 07/20/2018 Status: F Source: 9+ 4:25 AM SYSTEM REPOSITORY TYPE CODE TESTS [...] By: #### HEMOG, BMP3M, MG3, PHOS3 #### [facility] [address] [place] [phone] BASIC METABOLIC PANEL Collected: 07/20/2018 Status: F Source: 9+ 4:25 AM SYSTEM REPOSITORY TYPE CODE TESTS [...] By: #### HEMOG, BMP3M, MG3, PHOS3 #### [facility] [address] [place] [address] MAGNESIUM Collected: 07/20/2018 Status: F Source: 9+ 4:25 AM SYSTEM REPOSITORY TYPE CODE TESTS RESULT OUT OF REFERENCE UNITS RANGE LAB MG3 1.6-2.3 mg/dL Low Magnesium 1.5 Performed By: #### HEMOG, BMP3M, MG3, PHOS3 #### [facility] [address] PHOSPHORUS Collected: 07/20/2018 Status: F Source: 9+ 4:25 AM SYSTEM REPOSITORY TYPE CODE TESTS RESULT OUT OF RANGE REFERENCE UNITS LAB PHOS3 2.5-4.5 mg/dL Normal Phosphorus 4.3 Performed By: #### HEMOG, BMP3M, MG3, PHOS3 #### [facility] [address] [place] [address] Observed: 07/19/2018 Status: F Source: 9+ CLOSTRIDIUM DIFFICILE 10:53 PM SYSTEM REPOSITORY PCR [...] be submitted. Performed By: #### CDPCR #### [facility] [address] [address] HEMOGRAM Collected: 07/19/2018 Status: F Source: 9+ 5:29 AM SYSTEM REPOSITORY TYPE CODE TESTS [...] By: #### HEMOG, BMP3M, MG3, PHOS3 #### [facility] [address] [place] [id number] BASIC METABOLIC PANEL Collected: 07/19/2018 Status: F Source: 9+ 5:29 AM SYSTEM REPOSITORY TYPE CODE TESTS [...] By: #### HEMOG, BMP3M, MG3, PHOS3 #### [facility] [address] [place] [phone] MAGNESIUM Collected: 07/19/2018 Status: F Source: 9+ 5:29 AM SYSTEM REPOSITORY TYPE CODE TESTS RESULT OUT OF RANGE REFERENCE UNITS LAB MG3 1.6-2.3 mg/dL Normal Magnesium 1.6 Performed By: #### HEMOG, BMP3M, MG3, PHOS3 #### [facility] [address] [address] PHOSPHORUS Collected: 07/19/2018 Status: F Source: 9+ 5:29 AM SYSTEM REPOSITORY TYPE CODE TESTS RESULT OUT OF RANGE REFERENCE UNITS LAB PHOS3 2.5-4.5 mg/dL Normal Phosphorus 3.4 Performed By: #### HEMOG, BMP3M, MG3, PHOS3 #### [facility] [address] [address] HEMOGRAM Collected: 07/18/2018 Status: F Source: 9+ 5:02 AM SYSTEM REPOSITORY TYPE CODE TESTS [...] BMP3M, MG3, PHOS3 #### [facility] [address] [address] BASIC METABOLIC PANEL Collected: 07/18/2018 Status: F Source: 9+ 5:02 AM SYSTEM REPOSITORY TYPE CODE TESTS [...] By: #### HEMOG, BMP3M, MG3, PHOS3 #### [facility] [address] [place] [address] MAGNESIUM Collected: 07/18/2018 Status: F Source: 9+ 5:02 AM SYSTEM REPOSITORY TYPE CODE TESTS RESULT OUT OF RANGE REFERENCE UNITS LAB MG3 1.6-2.3 mg/dL Normal Magnesium 1.6 Performed By: #### HEMOG, BMP3M, MG3, PHOS3 #### [facility] [address] [place] [phone] PHOSPHORUS Collected: 07/18/2018 Status: F Source: 9+ 5:02 AM SYSTEM REPOSITORY TYPE CODE TESTS RESULT OUT OF RANGE REFERENCE UNITS LAB PHOS3 2.5-4.5 mg/dL Normal Phosphorus 3.5 Performed By: #### HEMOG, BMP3M, MG3, PHOS3 #### [facility] [address] [place] [phone] BASIC METABOLIC PANEL Collected: 07/17/2018 Status: F Source: 9+ 2:00 PM SYSTEM REPOSITORY TYPE CODE TESTS [...] Calcium 7.5 Performed By: #### BMP3 #### [facility] [address] [place], [place] LACTIC ACID Collected: 07/17/2018 Status: F Source: 9+ 11:25 AM SYSTEM REPOSITORY TYPE CODE TESTS RESULT OUT OF REFERENCE UNITS RANGE LAB LACT3 0.7-2.0 mmol/L Low Lactic Acid < 0.5 Performed By: #### LACT3 #### [facility] [address] [place], [place] Observed: 07/17/2018 Status: F Source: 9+ CULTURE URINE 8:28 AM SYSTEM REPOSITORY Order Comment: Specimen Source Comment:Urine, clean catch CULTURE URINE --> Status: F Normal urogenital elham present. Performed By: #### C/UR #### [facility]. [place], [place] CT ABDOMEN/PELVIS W/ Observed: 07/17/2018 Status: F Source: 9+ CONTRAST 5:09 AM SYSTEM REPOSITORY Patient Name: DAHLIA MARINO CT Exam Date/Time 07/17/2018 05:32:[address] Abdomen/Pelvis w/ IV Contrast (IV Onl Ordering Physician MD JAMIR, IRENE Gray Accession Number [id number] CPT4 Codes 96985 (CT Abdomen/Pelvis w/ IV Contrast (IV Onl), Q9967 (CT ISOVUE 370MG/[id number]) Reason For Exam recent abscess due to [...] 07/17/2018 5:09 Observed: 07/17/2018 Status: F Source: 9+ CULTURE BLOOD 4:57 AM SYSTEM REPOSITORY Order Comment: Specimen Source Comment:Blood CULTURE BLOOD --> Status: F No growth at 5 days. Performed By: #### C/BLD #### [facility] [address] [place] [phone] Observed: 07/17/2018 Status: F Source: 9+ CULTURE BLOOD (TWO) 4:01 AM SYSTEM REPOSITORY Order Comment: Specimen Source Comment:Blood CULTURE BLOOD (Two) --> Status: F No growth at 5 days. Performed By: #### C/BLT #### [facility] [address] [place] [phone] HEMOGRAM W/ AUTODIFF Collected: 07/17/2018 Status: F Source: 9+ 4:00 AM SYSTEM REPOSITORY TYPE CODE TESTS [...] LIPA4, LFT3, BMP3, CRP2, ESR, PCAL #### [facility] [address] [place] [phone] LACTIC ACID Collected: 07/17/2018 Status: F Source: 9+ 4:00 AM SYSTEM REPOSITORY TYPE CODE TESTS RESULT OUT OF RANGE REFERENCE UNITS LAB LACT3 0.7-2.0 mmol/L Normal Lactic Acid 1.2 Performed By: #### HEMDF, LACT3, LIPA4, LFT3, BMP3, CRP2, ESR, PCAL #### [facility] [address] [place] [phone] LIPASE Collected: 07/17/2018 Status: F Source: 9+ 4:00 AM SYSTEM REPOSITORY TYPE CODE TESTS RESULT OUT OF RANGE REFERENCE UNITS LAB LIPA4 23-300 U/L Normal Lipase 38 Performed By: #### HEMDF, LACT3, LIPA4, LFT3, BMP3, CRP2, ESR, PCAL #### [facility] [address] [place] [phone] HEPATIC FUNCTION Collected: 07/17/2018 Status: F Source: 9+ 4:00 AM SYSTEM REPOSITORY TYPE CODE TESTS [...] LIPA4, LFT3, BMP3, CRP2, ESR, PCAL #### [facility] [address] [place] [phone] BASIC METABOLIC PANEL Collected: 07/17/2018 Status: F Source: 9+ 4:00 AM SYSTEM REPOSITORY TYPE CODE TESTS [...] LIPA4, LFT3, BMP3, CRP2, ESR, PCAL #### [facility] [address] [place] [address] C-REACTIVE PROTEIN Collected: 07/17/2018 Status: F Source: 9+ 4:00 AM SYSTEM REPOSITORY TYPE CODE TESTS RESULT OUT OF REFERENCE UNITS RANGE LAB 2CRP 0.0-6.0 mg/L High C-Reactive 11.6 Protein Result Comment: . Performed By: #### HEMDF, LACT3, LIPA4, LFT3, BMP3, CRP2, ESR, PCAL #### [facility] [address] [place] [phone] SED RATE Collected: 07/17/2018 Status: F Source: 9+ 4:00 AM SYSTEM REPOSITORY TYPE CODE TESTS RESULT OUT OF RANGE REFERENCE UNITS LAB ESR 0-20 mm/h High Sed Rate 27 Performed By: #### HEMDF, LACT3, LIPA4, LFT3, BMP3, CRP2, ESR, PCAL #### [facility] [address] [place] [phone] PROCALCITONIN Collected: 07/17/2018 Status: F Source: 9+ 4:00 AM SYSTEM REPOSITORY TYPE CODE TESTS RESULT OUT OF REFERENCE UNITS RANGE LAB PRO <0.10 ng/mL Procalcitonin Normal < 0.10 LAB INT3 NA Interpretation See Below Result Comment: PCT <0.50 = Low risk of severe sepsis and/or septic shock. PCT >2.00 = High risk of severe sepsis and/or septic shock. Performed By: #### HEMDF, LACT3, LIPA4, LFT3, BMP3, CRP2, ESR, PCAL #### [facility] [address] [place] [phone] ED PROVIDER NOTE Observed: 07/17/2018 Status: F Source: 9+ 2:30 AM SYSTEM REPOSITORY [facility] EM[facility]PT eMERGENCY dEPARTMENT eNCOUnter Pt Name: Dahlia Marino Birthdate 1970 Date of evaluation: 07/17/2018 Provider: Irene Marlow MD Chief Complaint: No chief complaint on file. [place]: Dahlia Marino is a 48 y.o. female [...] antibiotics in the hospital. She is from [place] but was referred here because the hospital [...] by myself in the absence of a haircutter) none Chart review shows recent radiographs: Ct Abdomen Pelvis W Contrast Result Date: 07/02/2018 Patient Name: DAHLIA MARINO ---CT--- Exam Date/Time 07/02/2018 07:47:[address] Abdomen/Pelvis w/ IV Contrast (IV Onl Ordering Physician MD IVIS, MPH, MICHELINE Accession Number [id number] CPT4 Codes 15439 (CT Abdomen/Pelvis w/ IV Contrast (IV Onl), Q9967 (CT ISOVUE 370MG/ML&[id number]&ML&1) Reason For Exam Crohns flare, known abscess [...] PROVIDER NOTE Observed: 07/17/2018 Status: F Source: 9+ 2:30 AM SYSTEM REPOSITORY Emergency Department Encounter Location: [facility] Patient: Dahlia Marino : 1970 [...] # 1.4 1.0 - 4.3 10*3/uL Absolute [place] # 1.2 (H) 0.0 - 0.8 10*3/uL [...] eGFR >60.0 >60 mL/min EGFR IF NonAfrican Guyanese >60.0 >60 mL/min Calcium 8.1 (L) 8.4 [...] Physician MD JAMIR, IRENE Gray Accession Number [id number] CPT4 Codes 44373 (CT Abdomen/Pelvis w/ IV Contrast (IV Onl), Q9967 (CT ISOVUE 370MG/ML&[id number]&ML&1) Reason For Exam recent abscess due to [...] are mis-transcribed.) Bon Mercedes MD Acute Care [facility] Bon Mercedes MD 07/17/18 0551 DISCHARGE SUMMARY Observed: 07/04/2018 Status: F Source: 9+ 11:29 AM SYSTEM REPOSITORY Attestation signed by [...] on gregory), hypothyroidism, fibromyalgia presented to [facility] w/ progressive 6 week hx of abdominal pain. She was first seen at [facility] in [place], [place] 6wks prior to admission for abdominal [...] in the urine. CT abdomen done at [facility] (07/01/18) which showed a complex inflammatory collection/mass in anterior RLQ abscess. Patient was then transferred to [facility] the same day for further management and a second opinion. Patient and then requested transfer to [facility] as they have had family treated here [...] DISCHARGE MEDICATIONS: Dahlia Marino Home Medication Instructions MARLYN:[id number] Printed on:07/05/18 1005 Medication Information adalimumab (HUMIRA) 40 MG/0.8ML injection [...] Complexity: follow up within 7-14 calendar days (19272) [] Severe Complexity: follow up within 7 calendar days (06572) FOLLOW UP TESTING, PENDING RESULTS OR REFERRALS [...] W/ AUTODIFF Collected: 07/04/2018 Status: F Source: 9+ 5:08 AM SYSTEM REPOSITORY TYPE CODE TESTS [...] #### HEMDF, BMP3M, MG3, PHOS3, LFT3 #### [facility] [address] [place] [address] BASIC METABOLIC PANEL Collected: 07/04/2018 Status: F Source: 9+ 5:08 AM SYSTEM REPOSITORY TYPE CODE TESTS [...] #### HEMDF, BMP3M, MG3, PHOS3, LFT3 #### [facility] [address] [place] [phone] MAGNESIUM Collected: 07/04/2018 Status: F Source: 9+ 5:08 AM SYSTEM REPOSITORY TYPE CODE TESTS RESULT OUT OF RANGE REFERENCE UNITS LAB MG3 1.6-2.3 mg/dL Normal Magnesium 1.8 Performed By: #### HEMDF, BMP3M, MG3, PHOS3, LFT3 #### [facility] [address] [place] [phone] PHOSPHORUS Collected: 07/04/2018 Status: F Source: 9+ 5:08 AM SYSTEM REPOSITORY TYPE CODE TESTS RESULT OUT OF RANGE REFERENCE UNITS LAB PHOS3 2.5-4.5 mg/dL Normal Phosphorus 3.8 Performed By: #### HEMDF, BMP3M, MG3, PHOS3, LFT3 #### [facility] [address] [place] [phone] HEPATIC FUNCTION Collected: 07/04/2018 Status: F Source: 9+ 5:08 AM SYSTEM REPOSITORY TYPE CODE TESTS [...] #### HEMDF, BMP3M, MG3, PHOS3, LFT3 #### [facility] [address] [place] [phone] HEMOGRAM W/ AUTODIFF Collected: 07/03/2018 Status: F Source: 9+ 2:31 AM SYSTEM REPOSITORY TYPE CODE TESTS [...] By: #### HEMDF, MG3, PHOS3, BMP3M #### [facility] [address] [place] [address] MAGNESIUM Collected: 07/03/2018 Status: F Source: 9+ 2:31 AM SYSTEM REPOSITORY TYPE CODE TESTS RESULT OUT OF RANGE REFERENCE UNITS LAB MG3 1.6-2.3 mg/dL Normal Magnesium 2.1 Performed By: #### HEMDF, MG3, PHOS3, BMP3M #### [facility] [place], [place] PHOSPHORUS Collected: 07/03/2018 Status: F Source: 9+ 2:31 AM SYSTEM REPOSITORY TYPE CODE TESTS RESULT OUT OF RANGE REFERENCE UNITS LAB PHOS3 2.5-4.5 mg/dL Normal Phosphorus 3.8 Performed By: #### HEMDF, MG3, PHOS3, BMP3M #### [facility] [address] [place] [address] BASIC METABOLIC PANEL Collected: 07/03/2018 Status: F Source: 9+ 2:31 AM SYSTEM REPOSITORY TYPE CODE TESTS [...] By: #### HEMDF, MG3, PHOS3, BMP3M #### [facility] [address] [place] [address] URINALYSIS,MACRO Collected: 07/03/2018 Status: F Source: 9+ 2:23 AM SYSTEM REPOSITORY TYPE CODE TESTS RESULT OUT OF REFERENCE UNITS RANGE LAB APPUR Clear NA Appearance Cloudy LAB COLUR Lt. Yellow NA Color Yellow LAB USG 1.005-1.030 NA Specific Normal [place],Urine 1.015 LAB UPH 5.0-8.0 NA pH,Urine Normal [...] 250 Performed By: #### UAMAC, UAMIC #### [facility] [address] [place] [address] URINALYSIS,MICROSCOPIC Collected: Status: F Source: [employer] 07/03/2018 2:23 AM HEALTH SYSTEM REPOSITORY TYPE CODE TESTS RESULT OUT OF REFERENCE UNITS RANGE LAB WBCU 0-5 /[HPF] 26 WBC,Urine - 50 LAB RBCU 0-2 /[HPF] 11 RBC,Urine - 25 LAB EPIU 3-5 /[HPF] 0 Epithelial Cells - 2 LAB LILLIAM Negative NA Bacteria Many (51-100) LAB AMPH Negative NA Amorphous Moderate Phosphates (6-50) Performed By: #### UAMAC, UAMIC #### [facility] [place] [place] [address] Observed: 07/03/2018 Status: F Source: 9+ CULTURE URINE 2:23 AM SYSTEM REPOSITORY Order Comment: Specimen Source Comment:Urine, clean catch CULTURE URINE --> Status: F No growth (<1,000 CFU/ml). Performed By: #### C/UR #### [facility] [address] [address] [address] ABDOMEN/PELVIS W/ Observed: 07/02/2018 Status: F Source: 9+ CONTRAST 8:06 AM SYSTEM REPOSITORY Patient Name: DAHILA MARINO CT Exam Date/Time 07/02/2018 07:47:[address] Abdomen/Pelvis w/ IV Contrast (IV Onl Ordering Physician MD IVIS, MPH, MICHELINE Reyes Number [id number] CPT4 Codes 98929 (CT Abdomen/Pelvis w/ IV Contrast (IV Onl), Q9967 (CT ISOVUE 370MG/[id number]) Reason For Exam Crohns flare, known abscess [...] 8:06 URINALYSIS,MACRO Collected: 07/02/2018 Status: F Source: 9+ 1:59 AM SYSTEM REPOSITORY TYPE CODE TESTS RESULT OUT OF REFERENCE UNITS RANGE LAB APPUR Clear NA Appearance Clear LAB COLUR Lt. Yellow NA Color P. Yellow LAB USG 1.005-1.030 NA Specific Normal [place],Urine 1.010 LAB UPH 5.0-8.0 NA pH,Urine Normal [...] 25 Performed By: #### UAMAC, UAMIC #### [facility] [address] [address] URINALYSIS,MICROSCOPIC Collected: Status: F Source: [employer] 07/02/2018 1:59 AM HEALTH SYSTEM REPOSITORY TYPE CODE TESTS RESULT OUT OF REFERENCE UNITS RANGE LAB WBCU 0-5 /[HPF] 11 WBC,Urine - 25 LAB RBCU 0-2 /[HPF] 3 RBC,Urine - 5 LAB EPIU 3-5 /[HPF] 3 Epithelial Cells - 5 LAB LILLIAM Negative NA Bacteria Moderate (6-50) Performed By: #### UAMAC, UAMIC #### [facility] [address] [place] [address] Observed: 07/02/2018 Status: F Source: [place] BLOOD 1:45 AM SYSTEM REPOSITORY Order Comment: Specimen Source Comment:Blood CULTURE BLOOD --> Status: F No growth at 5 days. Performed By: #### C/BLD #### [facility] [address] [place] [address] Observed: 07/02/2018 Status: F Source: [place] BLOOD (TWO) 1:45 AM SYSTEM REPOSITORY Order Comment: Specimen Source Comment:Blood CULTURE BLOOD (Two) --> Status: F No growth at 5 days. Performed By: #### C/BLT #### [facility] [address] HEMOGRAM W/ AUTODIFF Collected: 07/02/2018 Status: F Source: 9+ 1:37 AM SYSTEM REPOSITORY TYPE CODE TESTS [...] LACT3, TSH5, CMP3, MG3, FT4M, TROPN #### [facility] [address] [place] [phone] PROTHROMBIN TIME Collected: 07/02/2018 Status: F Source: 9+ 1:37 AM SYSTEM REPOSITORY TYPE CODE TESTS [...] LACT3, TSH5, CMP3, MG3, FT4M, TROPN #### [facility] [address] [place] [phone] LACTIC ACID Collected: 07/02/2018 Status: F Source: 9+ 1:37 AM SYSTEM REPOSITORY TYPE CODE TESTS RESULT OUT OF REFERENCE UNITS RANGE LAB LACT3 0.7-2.0 mmol/L Low Lactic Acid 0.6 Performed By: #### HEMDF, PT, LACT3, TSH5, CMP3, MG3, FT4M, TROPN #### [facility] [address] [place] [phone] THYROID STIM. Collected: 07/02/2018 Status: F Source: 9+ HORMONE 1:37 AM SYSTEM REPOSITORY TYPE CODE TESTS RESULT OUT OF REFERENCE UNITS RANGE LAB TSH5 0.465-4.680 u[IU]/mL Low Thyroid Stim. 0.175 Hormone Performed By: #### HEMDF, PT, LACT3, TSH5, CMP3, MG3, FT4M, TROPN #### [facility] [address] [place] [phone] COMP METABOLIC PANEL Collected: 07/02/2018 Status: F Source: 9+ 1:37 AM SYSTEM REPOSITORY TYPE CODE TESTS [...] LACT3, TSH5, CMP3, MG3, FT4M, TROPN #### [facility] [address] [place] [phone] MAGNESIUM Collected: 07/02/2018 Status: F Source: 9+ 1:37 AM SYSTEM REPOSITORY TYPE CODE TESTS RESULT OUT OF REFERENCE UNITS RANGE LAB MG3 1.6-2.3 mg/dL Low Magnesium 1.5 Performed By: #### HEMDF, PT, LACT3, TSH5, CMP3, MG3, FT4M, TROPN #### [facility] [address] [place] [phone] FREE T4 Collected: 07/02/2018 Status: F Source: 9+ 1:37 AM SYSTEM REPOSITORY TYPE CODE TESTS RESULT OUT OF RANGE REFERENCE UNITS LAB FT4M 0.78-2.19 ng/dL Normal Free T4 1.87 Performed By: #### HEMDF, PT, LACT3, TSH5, CMP3, MG3, FT4M, TROPN #### [facility] [address] [place] [address] TROPONIN I Collected: 07/02/2018 Status: F Source: 9+ 1:37 AM SYSTEM REPOSITORY TYPE CODE TESTS RESULT OUT OF RANGE REFERENCE UNITS LAB TROP4 0.000-0.034 ng/mL Normal Troponin I < 0.012 Result Comment: 0.046 - 0.400 = Indeterminate > 0.400 = Consider Myocardial Injury Performed By: #### HEMDF, PT, LACT3, TSH5, CMP3, MG3, FT4M, TROPN #### [facility] [address] [place] [address] ED PROVIDER NOTE Observed: 07/02/2018 Status: F Source: 9+ 12:02 AM SYSTEM REPOSITORY Emergency Department Encounter [...] the past few weeks, was seen at [facility]. yesterday, CT there showed an intra-abdominal mass [...] otherwise acutely negative except as in the [place]. Past History Past Medical History: Diagnosis Date [...] # 1.6 1.0 - 4.3 10*3/uL Absolute [place] # 1.4 (H) 0.0 - 0.8 10*3/uL [...] eGFR >60.0 >60 mL/min EGFR IF NonAfrican Guyanese >60.0 >60 mL/min Calcium 8.0 (L) 8.4 [...] UA P. Yellow Lt. Yellow NA Specific [place], Urine 1.010 1.005 - 1.030 NA pH, [...] me Rhythm: normal sinus Rate: normal, 83 [place]: normal Ectopy: none Conduction: normal ST Segments: [...] [facility], only got the CAT scan [...] PROVIDER NOTE Observed: 07/02/2018 Status: F Source: 9+ 12:02 AM SYSTEM REPOSITORY Emergency Department Encounter [facility] EMERGENCY DEPT Patient: Dahlia Marino : 1970 Date of Evaluation: 07/02/2018 ED Provider: BLAIR HOLDEN CNP As the VFH-gu-warxoa, I performed a medical screening history and [...] per patient and family. They were at [facility] earlier this morning. Per report from family CT was done with oral contrast finding possible abscess below her liver. He was transferred [facility] without their knowledge. Family states they thought she was coming here. He was at [facility] day and that concerns about her care [...] NURSING PROG Observed: 07/01/2018 Status: COMPLETED Source: [place] 11:34 PM [facility] REPOSITORY HNO ID: [id number] Author: Meme (Rn) EZEKIEL Ramsay Service: Emergency [...] this. I personally spoke with Winter Paez MARKETING SALES REPRESENTATIVE, requested further order to check labs including [...] bleeding. PROGRESS Observed: 07/01/2018 Status: COMPLETED Source: [place] 11:15 PM [facility] REPOSITORY HNO ID: [id number] Author: Jeannine (Clayton) BLAIR [email or web address].CLAYTON Service: (none) Author Type: Nurse Practitioner Type: Progress Notes Filed: 07/01/2018 11:51 PM Note Text: CTBS for patient requesting to leave AMA. Nursing curing room supervisor on floor speaking with patient and [...] NURSING PROG Observed: 07/01/2018 Status: COMPLETED Source: [place] 9:25 PM CLINIC OTHER CAMPUS REPOSITORY HNO ID: [id number] Author: Ester (Rn) EZEKIEL Kamara Service: (none) [...] 8:57 PM HEALTH SYSTEM REPOSITORY Performed at [facility] APPROVED BY: Zia Maurer MD [...] advised. CONSULT Observed: 07/01/2018 Status: COMPLETED Source: [place] 4:02 PM [facility] REPOSITORY [facility] ID: [id number] Author: Misty Mcdonald Service: General Surgery Author [...] returned and got worse. Patient presented to [facility] ED where CT Abd/Pelvis showed a possible [...] CONSULT PROG Observed: 07/01/2018 Status: COMPLETED Source: [place] 3:57 PM CLINIC OTHER CAMPUS REPOSITORY O ID: [id number] Author: Kamran Colon Service: Gastroenterology Author Type: [...] ago per patient) who presented to the [facility] ED for abdominal pain. She stated she [...] she called EMS who transferred her to [facility]. In the ED her abdominal CT revealed possible abscess vs neoplasms so she was transferred to [facility]. She denied melena, hematochezia, hematemesis, and constipation. [...] about 3-4 years ago (no record in [facility]). FUNCTIONAL STATUS: Independent PAST MEDICAL HISTORY [...] patient 3-4 years ago (no record in [facility]) Assessment AND Plan: Repeat Abdominal CT [...] patient 3-4 years ago (no record in [facility]) Assessment AND Plan: Need records from Forensic Economist Dr. Loomis in [place]. SIGNATURE: Kamran Colon APRN.CNP PATIENT NAME: Dahlia Marino DATE: July 01, 2018 TIME: 3:57 PM PAGER: NUTRITION Observed: 07/01/2018 Status: COMPLETED Source: [place] 3:47 PM CLINIC OTHER CAMPUS REPOSITORY HNO ID: [id number] Author: Argentina Zuluaga RD (Ld) Service: Nutrition [...] nutritional status Reason for Assessment: Consult from COMPLIANCE TECHNICIAN for patient with 28 lbs weight loss in 4 weeks. Per HPI: This is a 47 year old female with PMH of crohns, hypothyroid, wallace, ape, liver sx d/t infection who presents to the [facility] from [facility]. Pt called EMS and had them take [...] Admitted) 07/01/18 0700 - 07/02/18 0659 Shift 5156-2430 3140-4532 24 Hour Total 4588-7478 6760-0133 0101-6953 24 Hour Total I N T A [...] July 01, 2018 TIME: 4:25 PM PAGER: [phone] CEA Collected: 07/01/2018 Status: F Source: [facility] 1:55 PM HEALTH SYSTEM REPOSITORY TYPE CODE TESTS RESULT OUT OF RANGE REFERENCE UNITS LAB CEA(LOINC) 0.0-3.0 ng/mL CEA 2.5 Result Comment: The reference range shown is for adult non-smokers. The range for smokers is 0-5.0 Testing performed by Chemiluminescence LOCI. Performed By: #### CEA #### [place] [address] MAGNESIUM BLOOD Collected: 07/01/2018 Status: F Source: [facility] 1:55 PM HEALTH SYSTEM REPOSITORY TYPE CODE TESTS RESULT OUT OF REFERENCE UNITS RANGE LAB MAG(LOINC) 1.6-2.6 mg/dL Magnesium Blood 1.6 Performed By: #### MAG #### [place] [address] Observed: 07/01/2018 Status: F Source: [facility] CULT BLOOD 12:00 PM HEALTH SYSTEM REPOSITORY Test performed at [facility] No growth Performed By: #### C_BLO #### [place] [address] HEMOGRAM Collected: 07/01/2018 Status: F Source: [facility] [...] MPV 9.8 Performed By: #### CBC1 #### [place] [address] LACTIC ACID Collected: 07/01/2018 Status: F Source: [facility] 11:55 AM HEALTH SYSTEM REPOSITORY TYPE CODE TESTS RESULT OUT OF REFERENCE UNITS RANGE LAB LAC(LOINC) 0.4-2.0 mEq/L Lactic Acid 0.4 Performed By: #### LAC #### [place] [address] PHOSPHORUS BLOOD Collected: 07/01/2018 Status: F Source: [facility] 11:55 AM HEALTH SYSTEM REPOSITORY TYPE CODE TESTS RESULT OUT OF REFERENCE UNITS RANGE LAB PHOS(LOINC 2.5-4.9 mg/dL ) Phosphorus Blood 3.8 Performed By: #### PHOS #### [place] [address] CRP Collected: 07/01/2018 Status: F Source: [facility] 11:55 AM HEALTH SYSTEM REPOSITORY TYPE CODE TESTS RESULT OUT OF RANGE REFERENCE UNITS LAB CRP3(LOINC) 0.00-0.30 mg/dL High CRP 8.04 Performed By: #### CRP3 #### [facility] [address] [place] [address] COMPREHENSIVE PANEL Collected: 07/01/2018 Status: F Source: [...] Gap 12 Performed By: #### P14 #### [place] [address] MDRD GFR Collected: 07/01/2018 Status: F Source: [facility] 11:[facility] REPOSITORY TYPE CODE TESTS RESULT OUT OF RANGE REFERENCE UNITS LAB GFRFN(LOINC >60mL/min/1.73m ) 2 eGFR >60 Result Comment: If the patient is , multiply the result by 1.210. Performed By: #### GFR #### [facility] [address] [place] [address] PROTIME Collected: 07/01/2018 Status: F Source: [place] [id number] [place] [address] SYSTEM REPOSITORY TYPE CODE TESTS RESULT OUT OF REFERENCE UNITS RANGE LAB PTI(LOINC) 9.7-13.0 sec Prothrombin Time 11.7 LAB INR(LOINC) 0.90-1.30 INR 1.14 Result Comment: Note: Reference Range Change Vitamin K Antagonist (VKA) Therapeutic Range: INR 2 to 3 (Target INR of 2.5) Note: For patients treated with VKA drugs, such as warfarin, the [place] [employer] 2012 Guideline recommends [...] 70: 252-289 Performed By: #### PT #### [place] [address] ACTIVATED PTT Collected: 07/01/2018 Status: F Source: [facility] 11:[address] [place] [address] SYSTEM REPOSITORY TYPE CODE TESTS RESULT OUT [...] [facility]. Performed By: #### APTT #### [facility] [address] [place], [place] [address] SED RATE Collected: 07/01/2018 Status: F Source: [facility] 11:55 AM HEALTH SYSTEM REPOSITORY TYPE CODE TESTS RESULT OUT OF RANGE REFERENCE UNITS LAB ESR(LOINC) 0-20 mm/hr High Sed Rate 38 Performed By: #### ESR #### [facility] [address] [place], [place] [address] HISTORY PHYSICAL Observed: 07/01/2018 Status: COMPLETED Source: [place] 11:14 AM CLINIC OTHER CAMPUS REPOSITORY HNO ID: [id number] Author: Meryl Hogan Service: Hospital Medicine Author Type: Nurse Practitioner Type: HANDP Filed: 07/01/2018 11:50 AM Note Text: Attestation signed by Jose Altamirano at 2018 5:50 PM (Updated) I have personally seen and examined the patient. I agree with the COMPLIANCE TECHNICIAN's note with following addition. Ms Marino, a 47 years old lady who has hx of UC and is on Humira Q week (last dose 2 weeks ago) under care of GI (? Dr Bender in [facility]) and multiple bowel surgeries including bowel resection, has abdominal pain for more than a month initially in lower part now generalized worse with food. Has fever in the last few days. Normal BM (reported diarrhea to [facility]), no nausea. Was treated with flagyl for a week a month ago. Last c scope > 5 years ago and last surgery > 5 years ago. She presented to [facility] where she was noted to have leukocytosis [...] 2 weeks ago), under the care of warp coiler ? Dr Bender 4. Hx of multiple [...] sx d/t infection who presents to the [facility] from [facility]. Pt called EMS and had them take [...] July 01, 2018 TIME: 11:15 AM PAGER: [id number] CT ABDOMEN/PELVIS W Observed: 07/01/2018 Status: F [facility] [place] [address] Patient: DAHLIA MARINO Phone#: : 1970 Age: 47 Gender: F Pt. Type: ER Account: [id number] Location: 2 Ordering: DOROTEO TABOR Exam Date: 07/01/2018/0:28 Family Phys: MARLO Pj LANG Charge Code: 167205 Physician: [place] Order #: [id number] DLP Dose#: [id number] PROCEDURE: CT ABDOMEN/PELVIS WITH [...] 47 Gender: F Pt. Type: ER Account: [id number] Location: 052 Ordering: DOROTEO TABOR Exam Date: 07/01/2018/0:28 Family Phys: MARLO LANG Charge Code: 443644 Physician: [place] Order #: [id number] DLP Dose#: [id number] ABDOMINAL WALL: Normal. No [...] 8:50 URINALYSIS Collected: 07/01/2018 Status: F Source: [facility] 12:34 AM [facility] REPOSITORY TYPE CODE TESTS RESULT [...] Urobilinog(LOINC) NORMAL: NORMAL Urobilinog NORM LAB Sp [place](LOINC) NORMAL: 1.010-1.030 Sp [place] 1.015 LAB Nitrite(LOINC) NORMAL: NEGATIVE Nitrite NEG [...] LAB Yeast(LOINC) Yeast NONE Performed By: #### [id number] #### [facility],[address] [place] [address] Observed: 06/30/2018 Status: F Source: [facility] CULTURE BLOOD 11:25 PM [facility] REPOSITORY CULTURE BLOOD CULTURE BLOOD SET: 2 of 2 24HOUR REPORT NEGATIVE 48HOUR REPORT NEGATIVE 72HOUR REPORT NEGATIVE M I C R O B I O L O G Y R E P O R T FINAL Antimicrobial Susceptibility and Organism Identification Report Specimen Number : [id number] Requested : 06/30/18 Specimen Source : BLOOD Collected : 06/30/18 23:25 Demp[place] of Isolation : Emergency Room Received : 06/30/18 23:25 Requesting Physician : christina Patient/Specimen Tests and Comments Specimen Comments FINAL REPORT: No Growth at 5 Days Tech : Source : BLOOD ID # : [id number] FINAL Report Date : / / : Collected : 06/30/18 23:25 07/06/18.1142.BKO. 07/06/18.1142.BKO.COMPLETE Performed By: #### [id number] #### [facility],[address] [place] [address] CBC Collected: 06/30/2018 Status: F Source: [facility] 10:45 PM [facility] REPOSITORY TYPE CODE TESTS RESULT [...] x10EE3/U L Neut # High 10.00 LAB [place] #(LOINC) 0.20 - 1.00 x10EE3/U L [place] # High 1.30 LAB EO #(LOINC) 0.00 - 0.50 x10EE3/U L EO # 0.00 LAB Baso #(LOINC) 0.00 - 0.10 x10EE3/U L Baso # 0.10 LAB MANUAL DIFF([facility]) MANUAL DIFF N/A LAB MORPHOLOGY(INC ) MORPHOLOGY N/A Result Comment: {CD] Performed By: #### [id number] #### [place] [address] LACTATE Collected: 06/30/2018 Status: F Source: [facility] 10:45 PM [facility] REPOSITORY TYPE CODE TESTS RESULT OUT OF REFERENCE UNITS RANGE LAB LACTATE(MESSI 4.5 - 18.0 mg/dL NC) Low LACTATE 4.3 Performed By: #### [id number] #### [place] [address] CMP WITH EGFR Collected: 06/30/2018 Status: F Source: [facility] 10:45 PM [facility] REPOSITORY TYPE CODE TESTS RESULT [...] OF AGE AND OLDER. Performed By: #### [id number] #### [place] [id number] LIPASE Collected: 06/30/2018 Status: F Source: [facility] 10:45 [facility] REPOSITORY TYPE CODE TESTS RESULT OUT OF REFERENCE UNITS RANGE LAB LIPASE(LOIN 18.0 - 51.0 U/L C) LIPASE 18.0 Performed By: #### [id number] #### [place] [id number] TROPONIN Collected: 06/30/2018 Status: F Source: [facility] 10:45 [facility] REPOSITORY TYPE CODE TESTS RESULT [...] such as heterophile antibodies). Performed By: #### [id number] #### [facility],[address] [place] [address] TSH Collected: 06/30/2018 Status: F Source: [facility] 10:45 PM [facility] REPOSITORY TYPE CODE TESTS RESULT OUT OF RANGE REFERENCE UNITS LAB TSH(LOINC) 0.34 - 5.60 uIU/ml Low TSH 0.17 Performed By: #### [id number] #### [place] [address]404 Observed: 06/30/2018 Status: F Source: [facility] CULTURE BLOOD 10:45 [facility] REPOSITORY CULTURE BLOOD CULTURE BLOOD SET: 1 of 2 24HOUR REPORT NEGATIVE 48HOUR REPORT NEGATIVE 72HOUR REPORT NEGATIVE M I C R O B I O L O G Y R E P O R T FINAL Antimicrobial Susceptibility and Organism Identification Report Specimen Number : [id number] Requested : 06/30/18 Specimen Source : BLOOD Collected : 06/30/18 22:45 [place] of Isolation : Emergency Room Received : 06/30/18 22:45 Requesting Physician : christina Patient/Specimen Tests and Comments Specimen Comments FINAL REPORT: No Growth at 5 Days Tech : Source : BLOOD ID # : [id number] FINAL Report Date : / / : Collected : 06/30/18 22:45 07/06/18.1142.BKO. 07/06/18.1142.BKO.COMPLETE Performed By: #### [id number] #### [facility],[address] [place] [address] EMERGENCY REPORT Observed: 06/30/2018 Status: F Source: [facility] 9:55 PM [facility] EMERGENCY ROOM REPORT NAME ACCOUNT SEX AGE ADMIT DISCHARGE PT MED. RECORD# NUMBER DATE DATE TYPE DAHLIA MARINO [id number] F 47 06/30/18 07/01/18 3 R [id number] ROOM: ER DATE OF : 1970 DICTATING [...] first contacted our surgical service here at [facility], who due to this patient's complicated medical history suggested transfer to [facility] in [place]. I then contacted [place], who suggested contacting the [facility] due to her complicated history. I then contacted [facility], who was agreeable with accepting the patient. The patient was monitored in our Emergency Department throughout the night and then transferred in stable condition. Dictated By: Doroteo Tabor DO 07/01/18 07:00 JOB #: [id number] Transcribed By: jen 07/01/18 09:44 Electronically signed by: E-SIGN: Doroteo Tabor D.O. 07/08/18 06:49 Page 2 of 2 DAHLIA MARINO Emergency Room Report EMERGENCY REPORT Observed: 06/30/2018 Status: F Source: [facility] 9:55 PM [facility] EMERGENCY ROOM REPORT NAME ACCOUNT SEX AGE ADMIT DISCHARGE PT MED. RECORD# NUMBER DATE DATE TYPE DAHLIA MARINO [id number] F 47 06/30/18 07/01/18 3 R [id number] ROOM: ER DATE OF : 1970 DICTATING [...] Lore Mujica DO 07/01/18 08:22 JOB #: [id number] Transcribed By: jen 07/01/18 10:00 Electronically signed by: E-Sign: LORE MUJICA MD 07/12/18 12:00 Page 1 of 1 DAHLIA MARINO Emergency Room Report EMERGENCY DEPARTMENT Observed: 05/11/2018 Status: F Source: [facility] REPORT 4:[address] [facility] [address] HEALTH INFORMATION MANAGEMENT EMERGENCY DEPARTMENT REPORT Patient: DAHLIA MARINO KATIA TAMEZ D.O. [id number] [age] F Status: DEP ER ED Date of Service: 05/08/18 CHIEF COMPLAINT A 47-year-old female. Chief complaint: Vaginal problem. HISTORY OF PRESENT ILLNESS The patient says she has had a recurrent yeast infection. She has had a discolored discharge. She has had a hysterectomy. She does not have a synthetic chemist. No other complaints. No abdominal pain, just [...] I am going to refer her to [facility] for followup. <Electronically signed by KATIA TAMEZ D.O.> 05/12/18 0538 KATIA TAMEZ D.O. cc: KATIA TAMEZ D.O. << Signature on File>> Reported By: KATIA TAMEZ D.O. Signed By: KATIA TAMEZ D.O. Tests performed at: [address] [address] ED PROV NOTE Observed: 05/11/2018 Status: COMPLETED Source: [place] 4:14 PM [facility] REPOSITORY HNO ID: [id number] Author: Katia Tamez Service: (none) Author Type: Physician Type: ED Provider Notes Filed: 06/23/2018 9:00 PM Note Text: [place] [address] HEALTH INFORMATION MANAGEMENT EMERGENCY DEPARTMENT REPORT Patient: DAHLIA MARINO KATIA TAMEZ D.O. [id number] [age] F Status: [facility] ER ED Date of Service: 05/08/18 CHIEF COMPLAINT A 47-year-old female. Chief complaint: Vaginal problem. HISTORY OF PRESENT ILLNESS The patient says she has had a recurrent yeast infection. She has had a discolored discharge. She has had a hysterectomy. She does not have a synthetic chemist. No other complaints. No abdominal pain, just [...] I am going to refer her to [facility] for followup. <Electronically signed by KATIA TAMEZ D.O.> 05/12/18 0538 KATIA TAMEZ D.O. cc: KATIA TAMEZ D.O. << Signature on File>> Reported By: KATIA TAMEZ D.O. Signed By: KATIA TAMEZ D.O. Tests performed at: [address] [address] Observed: 05/08/2018 Status: F Source: [facility] WET PREP 3:09 AM HOSPITAL REPOSITORY WET PREP FEW EPITHELIAL CELLS MANY WBC'S FEW RBC'S NEGATIVE FOR YEAST NEGATIVE FOR TRICHOMONAS Performed By: #### [id number] #### [facility] [address] [place] [address] EMERGENCY REPORT Observed: 01/09/2018 Status: F Source: [facility] 7:13 PM [facility] REPOSITORY [facility] EMERGENCY ROOM REPORT NAME ACCOUNT SEX AGE ADMIT DISCHARGE PT MED. RECORD# NUMBER DATE DATE TYPE DAHLIA MARINO [id number] F 47 12/28/17 12/28/17 3 R [id number] ROOM: ER DATE OF : 1970 DICTATING [...] the coronary arteries by Dr. Haque in [place]. She states that she has had an [...] Mor Douglass DO 12/28/17 06:44 JOB #: [id number] Transcribed By: sp 12/29/17 05:54 Electronically signed by: E-SIGN MOR RAFAT ARSHAD 01/09/18 19:10 Page 2 of 2 NED DAHLIA R Emergency Room Report CBC Collected: 12/28/2017 Status: F Source: [facility] 4:10 AM [facility] REPOSITORY TYPE CODE TESTS RESULT [...] x10EE3/U L Neut # High 10.70 LAB [place] #(LOINC) 0.20 - 1.00 x10EE3/U L [place] # 0.50 LAB EO #(LOINC) 0.00 - 0.50 x10EE3/U L EO # 0.10 LAB Baso #(LOINC) 0.00 - 0.10 x10EE3/U L Baso # 0.00 LAB MANUAL DIFF(LOINC) MANUAL DIFF N/A LAB MORPHOLOGY(LOINC ) MORPHOLOGY N/A Result Comment: {CD] Performed By: #### [id number] #### [facility],[address] [place] [address] CMP WITH EGFR Collected: 12/28/2017 Status: F Source: [facility] 4:10 AM [facility] REPOSITORY TYPE CODE TESTS RESULT [...] OF AGE AND OLDER. Performed By: #### 406021 #### [place] [address] LIPASE Collected: 12/28/2017 Status: F Source: [facility] 4:10 [facility] REPOSITORY TYPE CODE TESTS RESULT OUT OF REFERENCE UNITS RANGE LAB LIPASE(LOIN 18.0 - 51.0 U/L C) LIPASE 25.0 Performed By: #### [id number] #### [place] [address] TROPONIN Collected: 12/28/2017 Status: F Source: [facility] 4:10 [facility] REPOSITORY TYPE CODE TESTS RESULT [...] such as heterophile antibodies). Performed By: #### [id number] #### [place] [id number] ALLERGIES ALLERGIES DATE TYPE / NAME / CODE REACTION SEVERITY SOURCE CODE 08/29/2018 Drug doxycycline/[id number] Other Unknown [place] Allergy/41 748(RXNORM) [facility] 5503520([facility]) Repository 08/29/2018 Drug erythromycin Hives Unknown [place] Allergy/41 base/[id number](RXN Community 3826441(SN ORM) [facility]) Repository 08/29/2018 Drug metronidazole/F0060 Other Unknown [place] Allergy/41 13084(RXNORM) [facility] 9637531([facility]) Repository 07/01/2018 DRUG DOXYCYCLINE SHORTNESS OF High Vest INGREDI/41 Clinic Other 5610983([facility] OMED CT) Repository 07/01/2018 DRUG METRONIDAZOLE INTOLERANCE High Vest INGREDI/41 Clinic Other 3865110([facility] OMED CT) Repository 07/01/2018 DRUG AZITHROMYCIN SHORTNESS OF High Vest INGREDI/41 Clinic Other 5589164([facility] OME CT) Repository NG/4157712 DOXYCYCLINE [facility] 06([facility]OM[facility]) Repository NG/8005320 METRONIDAZOLE [facility] 06([facility]OM[facility]) Repository NG/8907698 AZITHROMYCIN [facility] 06(SNOMED [facility]) Repository Drug DOXYCYCLINE/8679372 Moderate Kashif Pomerene Allergy/41 0(RXNORM) ([facility] 8651089(SN Modifier) [facility]) (Qualifier Repository Value) Drug FLAGYL/37963173(RXN Moderate Kashif Pomerene Allergy/41 ORM) ([facility] 3784677(SN Modifier) [facility]) (Qualifier Repository Value) Drug ERYTHROMYCIN/424127 Moderate Kashif Pomerene Allergy/41 26(RXNORM) ([facility] 6889831(SN Modifier) [facility]) (Qualifier Repository Value) ENCOUNTERS ENCOUNTERS ADMIT/DISCHARGE ACCOUNT NUMBER ADMITTING ENCOUNTER LOCATION SOURCE CLASS 09/06/2018 [id number] [facility] ding:MEDOUTP Repository 09/05/2018 [id number] Ambulatory [facility] ding:MEDOUTP Repository 09/05/2018 [id number] [facility] Repository 09/04/2018/09/04/[id number] ding:MEDOUTP Repository 09/03/2018/09/03/[id number] ding:MEDOUTP Repository 09/02/2018 [id number] [facility]ulatory [facility] Repository 09/01/2018 [id number] Ambulatory Samara Ronco [facility] ding:MED[facility]P Repository 09/01/2018 [id number] Emergency [address] [place] [address] ERRoom: System [id number]: Repository [id number] 09/01/2018 [id number] Ambulatory [place] [facility] Repository 08/31/2018 [id number] Ambulatory Samara Ronco [facility] ding:MEDOUTP Repository 08/30/2018 [id number] Ambulatory Samara Samara [facility] ding:MED[facility]P Repository 08/30/2018 [id number] Ambulatory [place] [facility] Repository 08/29/2018 [id number] Ambulatory Samara Ronco [facility] ding:MEDOUTP Repository 08/28/2018/08/28/19 [id number] Ambulatory Ronco Samara 19 [facility] ding:MED[facility]P Repository 08/27/2018/08/27/19 [id number] Ambulatory Samara Samara 19 [facility] ding:MEDOUTP Repository 08/26/2018 [id number] Ambulatory Samara Ronco [facility] ding:MEDOUTP Repository 08/25/2018 [id number] Ambulatory Samara Samara [facility] ding:MEDOUTP Repository 08/25/2018 [id number] Ambulatory [place] [facility] Repository 08/24/2018 [id number] Ambulatory Ronco Ronco [facility] ding:MEDOUTP Repository 08/23/2018/08/23/19 [id number] Ambulatory Ronco Samara 19 [facility] ding:MEDOUTP Repository 08/22/2018 [id number] Ambulatory Ronco Samara [facility] ding:MEDOUTP Repository 08/21/2018/08/21/20 [id number] Ambulatory Ronco Samara 18 [facility] ding:MEDOUTP Repository 08/20/2018/08/20/20 [id number] Ambulatory Samara Samara 18 [facility] ding:MEDOUTP Repository 08/19/2018 [id number] Ambulatory Samara Samara [facility] ding:MED[facility]P Repository 08/18/2018 [id number] Ambulatory Samara Ronco [facility] ding:MEDOUTP Repository 08/17/2018 [id number] Ambulatory Ronco Ronco [facility] ding:MEDOUTP Repository 08/16/2018/08/16/20 [id number] Ambulatory Samara Samara 18 [facility] ding:MEDOUTP Repository 08/15/2018 [id number] Ambulatory Samara Ronco [facility] ding:MEDOUTP Repository 08/14/2018/08/14/20 [id number] Ambulatory Samara Samara 18 [facility] ding:MEDOUTP Repository 08/13/2018/08/13/20 [id number] Ambulatory Samara Samara 18 [facility] ding:MEDOUTP Repository 08/12/2018 [id number] Ambulatory Ronco Samara [facility] ding:MEDOUTP Repository 08/11/2018 [id number] Ambulatory Ronco Samara [facility] ding:MEDOUTP Repository 08/10/2018 [id number] Ambulatory Samara Ronco [facility] ding:MEDOUTP Repository 08/09/2018 [id number] Ambulatory Ronco Ronco [facility] ding:MEDOUTP Repository 08/08/2018 [id number] Ambulatory Samara Samara [facility] ding:MEDOUTP Repository 08/07/2018/08/07/20 [id number] Ambulatory Samara Samara 18 [facility] ding:MEDOUTP Repository 08/06/2018/08/06/20 [id number] Ambulatory Ronco Samara 18 [facility] ding:MEDOUTP Repository 08/05/2018 [id number] Ambulatory Samara Samara [facility] ding:MEDOUTP Repository 08/04/2018 [id number] Ambulatory Samara Samara [facility] ding:MEDOUTP Repository 08/04/2018 [id number] Ambulatory [place] [facility] Repository 08/04/2018 [id number] Ambulatory [place] [facility] Repository 08/03/2018 [id number] [facility] ding[facility]P Repository 08/02/2018 [id number] [facility] ding:MED[facility]P Repository 08/01/2018 [id number] [facility] ding:MEDOUTP Repository 07/31/2018/07/31/20 [id number] Ambulatory Samara Ronco [address] [place] [address] [facility] ding:MEDOUTP Repository 07/30/2018/07/30/20 [id number] Ambulatory Samara Ronco [address] [place] [address] [facility] ding:MEDOUTP Repository Room: [facility] 07/29/2018 [id number] [facility]ulatory [facility] ding:MEDOUTP Repository 07/29/2018 [id number] Ambulatory [place] [facility] Repository 07/28/2018 [id number] [facility] ding:MEDOUTP Repository 07/27/2018 [id number] [facility]ulatory [facility] ding:MEDOUTP Repository 07/26/2018 [id number] [facility] ding:[facility]P Repository 07/26/2018 [id number] Ambulatory [place] [facility] Repository 07/25/2018 [id number] [facility] ding:MED[facility]P Repository 07/24/2018/07/24/20 [id number] Ambulatory Samara Samara [address] [place] [address] [facility] ding:MEDOUTP Repository 07/23/2018/07/23/20 [id number] Ambulatory Samara Samara [address] [place] [address] [facility] ding:MEDOUTP Repository 07/22/2018 [id number] [facility] ding:MEDOUTP Repository 07/21/2018 [id number] [facility] ding:MEDOUTP Repository 07/17/2018 [id number] [facility]patient [facility] 4NRoom: System [id number]: Repository [id number] 07/02/2018 [id number] Inpatient [facility] [place] [facility] Encounter 6WRoom: System [id number]: Repository [id number] 07/01/2018/07/02/20 [id number] TETYUK, Inpatient [place] 18 [address] Encounter Clinic Other [place] Repository 07/01/2018/07/02/20 [id number] ELYUK, Inpatient AKRON [facility] 18 [address] Encounter Critical access hospital System MEDICAL Repository CENTERBuildi nRoom: 7121Bed: 06/30/2018/07/01/20 [id number] CHRISTINA, Emergency [facility]in[address] [place] [address] 18 DOROTEO D Room: ERBed: [facility] Repository 05/08/2018/05/08/20 [id number] Emergency UNIBuilding: [address] Repository 12/28/2017/12/29/19 [id number] RAFAT, Emergency [facility]in[address] [place] [address] 18 MOR DO Room: ERBed: [facility] Repository PAYERS PAYERS ENCOUNTER GUARANTOR 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 SOURCE 09/06/2018 ADHLIA Hathaway Primary Insurance:SELF NOT GIVENUNK [facility] Number: Effective [place] Date:2018-08-30 Repository 00384Bfx: () 09/05/2018 DAHLIA R Primary Insurance:SELF NOT [facility]IV[facility]UNK [facility] Number: Effective [place] Date:2018-08-30 Repository [address]Zfw: () 09/05/2018 Dahlia Primary Dahlia NedDOB[facility]: Insurance:MedicarePoli [id number] System cy Number: Effective [facility] Date: [place], [place] [address]Dde: () 09/05/2018 Secondary Dahlia BarkesDOB: [facility] Insurance:MedicarePoli [id number] System cy Number: Effective Repository Date: 09/05/2018 Tertiary Dahlia BarkesDOB: [facility] Insurance:Self [id number] System PayPolicy Number: Repository Effective Date: 09/04/2018 DAHLIA R Primary Insurance:SELF NOT GIVENUNK Samara [id number] [facility]Y [facility] Number: Effective [place] Date:2018-08-30 Repository [address]Lzc: (HP) 09/03/2018 DAHLIA R Primary Insurance:SELF NOT GIVENUNK Samara [id number] [facility]Y [facility] Number: [place] Date:2018-08-30 Repository [address]Ehf: (HP) 09/02/2018 DAHLIA R Primary Insurance:SELF NOT GIVENUNK Ron[place] [id number] [facility]Y [facility] Number: [place] Date:2018-08-30 Repository [address]Qzm: (HP) 09/01/2018 DAHLIA R Primary Insurance:SELF NOT GIVENUNK Samara [id number] [facility]Y [facility] Number: [place] Date:2018-08-30 Repository [address]Eod: (HP) 09/01/2018 Dahlia Primary Dahlia BarkesDOB: [facility] BarkesDOB: Insurance:MedicarePoli [id number] System cy Number: Effective [facility] Date: [place], [place] [address]Cmq: () 09/01/2018 Secondary Dahlia BarkesDOB: [facility] Insurance:Self [id number] System PayPolicy Number: Repository Effective Date: 09/01/2018 Dahlia Primary Dahlia BarkesDOB: [facility] BarkesDOB: Insurance:MedicarePoli [id number] System cy Number: Effective Repository [place] Date: [place], [place] [address]Fsg: (HP) 09/01/2018 Secondary Dahlia BarkesDOB: [facility] Insurance:Self [id number] System PayPolicy Number: Repository Effective Date: 08/31/2018 DAHLIA R Primary Insurance:SELF NOT GIVENUNK Ron[place] [id number] [facility]Y [facility] Number: Effective [facility] [place] Date:2018-08-30 Repository [address]Bbr: (HP) 08/30/2018 DAHLIA R Primary Insurance:SELF NOT GIVENUNK Samara [id number] [facility]Y [facility] Number: Effective [facility] Date:2018-08-24 Repository [address]Cbu: (HP) 08/30/2018 Dahlia Primary Dahlia MarinoDOB: [facility] BarkesDOB: Insurance:MedicarePoli [id number] System cy Number: Effective [facility] Date: [facility] [place] [address]Xjb: (HP) 08/30/2018 Secondary Dahlia NancieB: [facility] Insurance:Self [id number] System PayPolicy Number: Repository Effective Date: 08/29/2018 DAHLIA R Primary Insurance:SELF NOT GIVENUNK Samara [id number] PAY [facility] Number: Effective [facility] [place] Date:2018-08-24 Repository [address]Dfz: (HP) 08/28/2018 DAHLIA R Primary Insurance:SELF NOT GIVENUNK Samara [id number] [facility]Y [facility] Number: Effective [facility] [place] Date:2018-08-24 Repository [address]Uyy: (HP) 08/27/2018 DAHLIA R Primary Insurance:SELF NOT GIVENUNK Ronco [id number] [facility] Date:2018-08-24 Repository 75859Fmc: (HP) 08/26/2018 DAHLIA R Primary Insurance:SELF NOT GIVENUNK Samara [id number] [facility]:2018-08-24 Repository 47518Fiv: (HP) 08/25/2018 DAHLIA R Primary Insurance:SELF NOT GIVENUNK Samara [id number] [facility]:2018-08-24 Repository 99531Vqr: (HP) 08/25/2018 Dahlia Primary Dahlia MarinoB: [facility] BarkjenyDOB: Insurance:MedicarePoli [id number] System cy Number: Effective [facility] Date: [place], [place] [address]Kel: (HP) 08/25/2018 Secondary Dahlia MarinoB: [facility] Insurance:Self [id number] System PayPolicy Number: Repository Effective Date: 08/24/2018 DAHLIA R Primary Insurance:SELF NOT GIVENUNK Samara [id number] [facility]Y [facility]:2018-08-22 Repository 58260Zjw: (HP) 08/23/2018 DAHLIA R Primary Insurance:SELF NOT GIVENUNK Ron[place] [id number] [facility]Y [facility]:2018-08-09 Repository 42182Fvt: (HP) 08/22/2018 DAHLIA R Primary Insurance:SELF NOT GIVENUNK Samara [id number] [facility]Y [facility]:2018-08-22 Repository 20833Sey: (HP) 08/21/2018 DAHLIA R Primary Insurance:SELF NOT GIVENUNK Ronco [id number] [facility]Y [facility]:2018-08-09 Repository 51108Hfg: (HP) 08/20/2018 DAHLIA R Primary Insurance:SELF NOT GIVENUNK Ronco [id number] [facility]Y [facility]: Effective [facility]:2018-08-09 Repository 99011Pnc: (HP) 08/19/2018 DAHLIA R Primary Insurance:SELF NOT GIVENUNK Ronco [id number] [facility]Y [facility]: [facility]:2018-08-09 Repository 02846Mqa: (HP) 08/18/2018 DAHLIA R Primary DAHLIA R Ronco [id number] Insurance:MEDICARE A BARKESDOB: [facility] Number: [id number] [id number] Repository [address]Mbn: 330) Date:2018-08-09 [phone] (HP) 08/18/2018 Secondary NOT GIVENUNK Ronco Insurance:SELF PAY [facility] Number: Effective Repository Date:2018-08-09 08/17/2018 DAHLIA R Primary DAHLIA R Samara [id number] Insurance:MEDICARE A BARKESDOB: [facility] Number: [id number] [id number] Repository [address]Awz: (357) Date:2018-08-09 [phone] (HP) 08/17/2018 Secondary NOT GIVENUNK Samara Insurance:SELF PAY [facility] Number: Effective Repository Date:2018-08-09 08/16/2018 DAHLIA R Primary DAHLIA R Ronco [id number] Insurance:MEDICARE A BARKESDOB: [facility] Number: [id number] [id number] Repository 05[address]Vrm: (330) Date:2018-08-09 [phone] (HP) 08/16/2018 Secondary NOT GIVENUNK Ronco Insurance:SELF PAY [facility] Number: Effective Repository Date:2018-08-09 08/15/2018 DAHLIA R Primary Insurance:SELF NOT GIVENUNK Ronco [id number] [facility]Y [facility] Number: [place] Date:2018-08-09 Repository 95216Sfb: (HP) 08/14/2018 DAHLIA R Primary Insurance:SELF NOT GIVENUNK Ronco [id number] [facility]Y [facility] Number: [place] Date:2018-08-09 Repository 59347Rwc: (HP) 08/13/2018 DAHLIA R Primary Insurance:SELF NOT GIVENUNK Samara [id number] [facility] Number: Effective [facility] Date:2018-08-09 Repository 92217Kwd: () 08/12/2018 DAHLIA R Primary Insurance:SELF NOT GIVENUNK Ronco [id number] [facility]Y [facility] Number: Effective [facility] Date:2018-08-09 Repository 94906Ajm: () 08/11/2018 DAHLIA R Primary Insurance:SELF NOT GIVENUNK Samara [id number] [facility]Y [facility]: Effective [facility] Date:2018-08-09 Repository 06157Dto: () 08/10/2018 DAHLIA R Primary Insurance:SELF NOT GIVENUNK Ronco [id number] [facility]Y [facility] Number: Effective [facility] Date:2018-07-26 Repository 48814Ssi: () 08/09/2018 DAHLIA R Primary Insurance:SELF NOT GIVENUNK Samara [id number] [facility]Y [facility] Number: Effective [facility] Date:2018-07-26 Repository 86446Apr: () 08/08/2018 DAHLIA R Primary Insurance:SELF NOT GIVENUNK Ronco [id number] [facility]Y [facility] Number: Effective [facility]:2018-07-26 Repository 73419Ndy: () 08/07/2018 DAHLIA R Primary Insurance:SELF NOT GIVENUNK Ronco [id number] [facility]: Effective [facility] Date:2018-07-26 Repository 41876Mtl: () 08/06/2018 DAHLIA R Primary Insurance:SELF NOT GIVENUNK Samara [id number] [facility]Y [facility] Number: Effective [facility] Date:2018-07-26 Repository 10806Ooc: (HP) 08/05/2018 DAHLIA R Primary Insurance:SELF NOT GIVENUNK Samara [id number] [facility]Y [facility] Number: [place] Date:2018-07-26 Repository 31191Pie: (HP) 08/04/2018 DAHLIA R Primary Insurance:SELF NOT GIVENUNK Samara [id number] [facility]Y [facility] Number: [place] Date:2018-07-26 Repository 04288Dzk: (HP) 08/04/2018 Dahlia Primary Dahlia BarkesDOB: [facility] BarkesDOB: Insurance:MedicarePoli [id number] System cy Number: Effective [facility] Date: [place], [place] [address]Pfo: () 08/04/2018 Secondary Dahlia BarkesDOB: [facility] Insurance:Self [id number] System PayPolicy Number: Repository Effective Date: 08/04/2018 Dahlia Primary Dahlia BarkesDOB: [facility] BarkesDOB: Insurance:MedicarePoli [id number] System cy Number: Effective [facility] Date: [place], [place] [address]Wsz: () 08/04/2018 Secondary Dahlia BarkesDOB: [facility] Insurance:Self [id number] System PayPolicy Number: Repository Effective Date: 08/03/2018 DAHLIA R Primary Insurance:SELF NOT GIVENUNK Ronco [id number] [facility]Y [facility] [place] Date:2018-07-26 Repository 82647Ruc: (HP) 08/02/2018 DAHLIA R Primary Insurance:SELF NOT GIVENUNK Ronco [id number] [facility]Y [facility] Number: Effective Hospital [facility] [place] Date:2018-07-26 Repository 72721Xjn: () 08/01/2018 DAHLIA R Primary DAHLIA R Samara [id number] Insurance:MEDICARE A BARKESDOB: [facility] ONLYPolicy Number: [id number], [place] [id number] Repository 94526Ukg: (330) Date:2018-07-26 [phone] (HP) 08/01/2018 Secondary NOT GIVENUNK Ronco Insurance:SELF PAY [facility] Hospital Number: Effective Repository Date:2018-07-26 07/31/2018 DAHLIA Hathaway Primary DAHLIA Hathaway Ronco [id number] Insurance:MEDICARE A BARKESDOB: [facility] ONLYPolicy Number: [id number], [place] [id number] Repository [address]Nta: (330) Date:2018-07-26 [phone] (HP) 07/31/2018 Secondary NOT GIVENUNK Ronco Insurance:SELF PAY [facility] Hospital Number: Effective Repository Date:2018-07-26 07/30/2018 DAHLIA Hathaway Primary DAHLIA Hathaway Samara [id number] Insurance:MEDICARE A BARKESDOB: [facility] Number: [id number], [place] [id number] Repository 14090Jph: (330) Date:2018-07-26 [phone] () 07/30/2018 Secondary NOT GIVENUNK Ronco Insurance:SELF PAY [facility] Hospital Number: Effective Repository Date:2018-07-26 07/29/2018 DAHLIA Hathaway Primary DAHLIA Hathaway Samara [id number] Insurance:MEDICARE A BARKESDOB: [facility]y Number: [id number], [place] [id number] Repository 12769Cvp: (330) Date:2018-07-26 [phone] (HP) 07/29/2018 Secondary NOT GIVENUNK Ronco Insurance:SELF PAY [facility] Hospital Number: Effective Repository Date:2018-07-26 07/29/2018 Dahlia Villagomez BarkesDOB: [facility] BarkesDOB: Insurance:MedicarePoli [id number] System cy Number: Effective Repository [place] Date: [place], [place] [address]Yoe: (HP) 07/28/2018 DAHLIA R Primary DAHLIA R Samara [id number] Insurance:MEDICARE A BARKESDOB: [facility] ONLYPolicy Number: [id number], [place] [id number] Repository 13347Mqi: (330) Date:2018-07-26 [phone] (HP) 07/28/2018 Secondary NOT GIVENUNK Ronco Insurance:SELF PAY [facility] Number: Effective Repository Date:2018-07-26 07/27/2018 DAHLIA R Primary Insurance:SELF NOT GIVENUNK Ronco [id number] [facility] Number: [place]:2018-07-26 Repository 67244Jfd: (HP) 07/26/2018 DAHLIA R Primary DAHLIA R Samara [id number] Insurance:MEDICARE A BARKESDOB: [facility] Number: [id number], [place] [id number] Repository [address]Mdj: (330) Date:2018-07-26 [phone] (HP) 07/26/2018 Secondary NOT GIVENUNK Samara Insurance:SELF PAY [facility] Number: Effective Repository Date:2018-07-26 07/26/2018 Dahlia Primary Dahlia BarkesDOB: [facility] BarkesDOB: Insurance:MedicarePoli [id number] System cy Number: Effective [facility] Date: [place], [place] [address]Qoc: (HP) 07/26/2018 Secondary Dahlia BarkesDOB: [facility] Insurance:Self [id number] System PayPolicy Number: Repository Effective Date: 07/25/2018 DAHLIA R Primary DAHLIA R Ronco [id number] Insurance:MEDICARE A BARKESDOB: [facility] Number: [id number], [place] [id number] Repository 35[address]Lki: (330) Date:2018-07-20 [phone] () 07/25/2018 Secondary NOT GIVENUNK Samara Insurance:SELF PAY [facility] Number: Effective Repository Date:2018-07-20 07/24/2018 DAHLIA R Primary DAHLIA R Ronco [id number] Insurance:MEDICARE A BARKESDOB: [facility]Polmercy[facility] Number: [id number] [place], [place] [id number] Repository 518[address]Sdn: (999) Date:2018-07-20 [phone] (HP) 07/24/2018 Secondary NOT GIVENUNK Samara Insurance:SELF PAY [facility] Number: Effective Repository Date:2018-07-20 07/23/2018 DAHLIA R Primary Insurance:SELF NOT GIVENUNK Samara [id number] PAY [facility] Number: [place]:2018-07-20 Repository 55139Xqz: (HP) 07/22/2018 DAHLIA R Primary Insurance:SELF NOT GIVENUNK Samara [id number] PAY [facility] Number: [place]:2018-07-20 Repository 93518Ome: (HP) 07/21/2018 DAHLIA R Primary Insurance:SELF NOT GIVENUNK Samara [id number] [facility]Y [facility] Number: [place]:2018-07-20 Repository 80874Gsh: (HP) 07/17/2018 Dahlia Primary Dahlia BarkesDOB: [facility] BarkesDOB: Insurance:MedicarePoli [id number] System cy Number: Effective Repository [place] Date: [place], [place] [address]Qxy: (HP) 07/02/2018 [facility] Primary Dahlia BarkesDOB: [facility] BarkesDOB: Insurance:MedicarePoli [id number] System cy Number: Effective [facility] Date: [place], [place] [address]Suw: (HP) 07/02/2018 Secondary Dahlia BarkesDOB: [facility] Insurance:Self [id number] System PayPolicy Number: Repository Effective Date: 07/01/2018 DAHLIA R [facility]:MEDICARE BARKESDOB: Health System APolicy Number: [id number] Repository INGRAM [id number] [place], [place] Date: [address]Txi: () 06/30/2018 DAHLIA R Primary DAHLIA R Kashiflucinda Bennettzeinab BARKESDOB: Insurance:MEDICARE BARKESDOB: [facility]IENT[facility] [id number] [facility] Number: INGRAM Repository [place], [place] [id number] [place] [id number]: Date:Plan Name: [id number] () 05/08/2018 DAHLIA R Primary DAHLIA R [facility] [id number] Insurance:[facility]ICARE [facility]UNK [facility] [place] [facility] Repository [place], [place] Number: [address]Eco: [phone]) [id number] [phone] (HP) Date: 12/28/2017 DAHLIA R Primary DAHLIA R Kashiflucinda Bennettzeinab BARKDOB: Insurance:MEDICARE BARKESDOB: [facility] OUTPATIENTExcela [facility] [id number] [place] [address] Number: INGRAM Repository [place], [place] [id number] [place] [id number]: Date:Plan Name: [id number] ()
== END ==
LOC: MEDOUTP 13:51
PROVIDERS: Referring Provider Internal Medicine Infectious Disease; Visit Provider Internal Medicine Infectious Disease
DX: K65.1 Peritoneal abscess (principal)
CPT/HCPCS: 96365; J7050; A4216

== ENCOUNTER → 2018-08-10 13:55 | Outpatient (CLI) | payer SELFPAY ==
[2018-07-26 13:51] VITALS: BMI 24.3
[2018-08-09 14:20] VITALS: BMI 24.3
[2018-08-10 14:15] VITALS: BP 136/78; PULSE 77; RESP 16; TEMP 36.8; O2SAT 98; BMI 24.3
[2018-08-10 14:56] LABS: Absolute Lymphocyte Count 2.17 X10^3/ul (0.83-4.51); Absolute Neutrophil Count 4.5 X10^3/uL (2.0-7.7); Basophil# 0.04 X10^3/uL; Basophil% 0.5 % (0-1); Eosinophil# 0.23 X10^3/uL; Eosinophils% 3.1 % (0-5); Hematocrit 31.3 % (37-47); Lymphocyte # 2.17 X10^3/ul (4.0); Lymphocyte % 28.9 % (19-41); Mean Corp Hgb Conc 31.9 g/gl (32-36); Mean Corpuscular Hgb 30.3 pg (27.0-32.0); Mean Corpuscular Volume 94.8 fL (81-99); Mean Platelet Vol. 8.5 fl (6.2-12.0); Monocyte# 0.56 X10^3/uL; Monocyte% 7.5 % (0-10); Neutrophil % 59.9 % (47-70); POSITIVE COUNT NO; POSITIVE DIFFERENTIAL NO; POSITIVE MORPHOLOGY NO; Platelet Count 425 K/mm3 (150-450); RBC Distribution Width CV 13.5 % (11.6-14.6); RBC Distribution Width SD 46.7 fl (35.1-43.9); White Blood Count 7.5 K/mm3 (4.4-11.0)
[2018-08-10 15:23] LABS: ALB/GLOB Ratio 0.7 RATIO (0.9-2.4); AST(SGOT) 12 U/L (15-37); Alanine Aminotransfer ALT/SGPT 14 U/L (13-56); Albumin, Serum 2.8 g/dL (3.2-5.0); Alkaline Phosphatase 87 U/L (45-117); Anion Gap 8 (5-15); BUN 6 mg/dL (7-18); BUN/Creat Ratio 11.5 RATIO (10-20); Calcium,Total 8.2 mg/dL (8.5-10.1); Chloride 108 mmol/L (98-107); Creatinine, Serum 0.52 mg/dL (0.55-1.02); EST Glomerular Filtration Rate 133 mL/min (>60); Est Glom Filt Rate - Afr Amer 160 mL/min (>60); Estimated Creatinine Clearance 113.01 ml/min; Globulin 4.2 g/dL (2.2-4.2); Glucose 99 mg/dL (74-106); Potassium 2.8 mmol/L (3.5-5.1); Sodium Level 146 mmol/L (136-145)
== END ==
LOC: MEDOUTP 13:56
PROVIDERS: Referring Provider Internal Medicine Infectious Disease; Visit Provider Internal Medicine Infectious Disease
DX: K65.1 Peritoneal abscess (principal)
CPT/HCPCS: 96365; 80053; 85025; J7050; A4216

== ENCOUNTER → 2018-08-11 13:54 | Outpatient (CLI) | payer SELFPAY ==
[2018-08-09 14:20] VITALS: BMI 24.3
[2018-08-10 14:15] VITALS: BMI 24.3
[2018-08-11 14:11] VITALS: BP 149/83; PULSE 84; RESP 16; TEMP 36.9; O2SAT 96; BMI 24.3
== END ==
LOC: MEDOUTP 13:54
PROVIDERS: Referring Provider Internal Medicine Infectious Disease; Visit Provider Internal Medicine Infectious Disease
DX: K65.1 Peritoneal abscess (principal)
CPT/HCPCS: 96365; J7050; A4216

== ENCOUNTER → 2018-08-12 13:44 | Outpatient (CLI) | payer SELFPAY ==
[2018-08-09 14:20] VITALS: BMI 24.3
[2018-08-11 14:11] VITALS: BMI 24.3
[2018-08-12 13:58] VITALS: BP 137/83; PULSE 84; RESP 16; TEMP 36.8; O2SAT 99; BMI 24.1
== END ==
LOC: MEDOUTP 13:44
PROVIDERS: Referring Provider Internal Medicine Infectious Disease; Visit Provider Internal Medicine Infectious Disease
DX: K65.1 Peritoneal abscess (principal)
CPT/HCPCS: 96365; J7050; A4216

== ENCOUNTER 2018-08-13 14:29 | Outpatient (CLI) | payer SELFPAY ==
[2018-08-09 14:20] VITALS: BMI 24.3
[2018-08-12 13:58] VITALS: BMI 24.1
[2018-08-13 14:36] VITALS: BP 135/73; PULSE 77; RESP 18; O2SAT 98
[2018-08-13] MEDS: 0.9% NaCl PICC Flush IV (15:19)
== END 2018-08-13 15:24 | disposition home or self-care (01) ==
LOC: MEDOUTP 14:30 → PCU 14:30
PROVIDERS: Referring Provider Internal Medicine Infectious Disease; Visit Provider Internal Medicine Infectious Disease
DX: K65.1 Peritoneal abscess (principal)
CPT/HCPCS: 96365; A4216

== ENCOUNTER 2018-08-14 13:46 | Outpatient (CLI) | payer SELFPAY ==
[2018-08-09 14:20] VITALS: BMI 24.3
[2018-08-12 13:58] VITALS: BMI 24.1
[2018-08-14 14:16] VITALS: BP 132/81; PULSE 75; RESP 18; TEMP 36.7; O2SAT 97
== END 2018-08-14 14:29 | disposition home or self-care (01) ==
LOC: MEDOUTP 13:46 → MS3 13:47
PROVIDERS: Referring Provider Internal Medicine Infectious Disease; Visit Provider Internal Medicine Infectious Disease
DX: K65.1 Peritoneal abscess (principal)
CPT/HCPCS: 96365

== ENCOUNTER → 2018-08-15 13:43 | Outpatient (CLI) | payer SELFPAY ==
[2018-08-09 14:20] VITALS: BMI 24.3
[2018-08-12 13:58] VITALS: BMI 24.1
[2018-08-15 13:56] VITALS: BP 125/66; PULSE 78; RESP 16; TEMP 36.6; O2SAT 100; BMI 24.3
== END ==
LOC: MEDOUTP 13:44
PROVIDERS: Referring Provider Internal Medicine Infectious Disease; Visit Provider Internal Medicine Infectious Disease
DX: K65.1 Peritoneal abscess (principal)
CPT/HCPCS: 96365; J7050; A4216

== ENCOUNTER 2018-08-16 13:32 | Outpatient (CLI) | payer MEDICARE, SELFPAY ==
[2018-08-09 14:20] VITALS: BMI 24.3
[2018-08-15 13:56] VITALS: BMI 24.3
[2018-08-16] MEDS: 0.9% NaCl PICC Flush 10 ML IV ×2 (13:38→14:29)
[2018-08-16 13:41] VITALS: BP 127/74; PULSE 70; RESP 18; TEMP 36.6; O2SAT 96
[2018-08-16 14:28] VITALS: BP 140/78; PULSE 78; RESP 18; TEMP 36.6; O2SAT 98
== END 2018-08-16 14:29 | disposition home or self-care (01) ==
LOC: MEDOUTP 13:36 → MS3 14:04
PROVIDERS: Referring Provider Internal Medicine Infectious Disease; Visit Provider Internal Medicine Infectious Disease
DX: K65.1 Peritoneal abscess (principal)
CPT/HCPCS: 96365; A4216

== ENCOUNTER → 2018-08-17 13:39 | Outpatient (CLI) | payer MEDICARE, SELFPAY ==
[2018-08-09 14:20] VITALS: BMI 24.3
[2018-08-15 13:56] VITALS: BMI 24.3
[2018-08-17 13:50] VITALS: BP 128/72; PULSE 78; RESP 16; TEMP 36.7; O2SAT 98; BMI 24.3
[2018-08-17 14:22] LABS: Absolute Lymphocyte Count 1.59 X10^3/ul (0.83-4.51); Absolute Neutrophil Count 4.1 X10^3/uL (2.0-7.7); Basophil# 0.04 X10^3/uL; Basophil% 0.6 % (0-1); Eosinophil# 0.19 X10^3/uL; Hematocrit 32.7 % (37-47); Hemoglobin 10.3 g/dl (12.0-15.0); Lymphocyte # 1.59 X10^3/ul (4.0); Lymphocyte % 25.1 % (19-41); Mean Corp Hgb Conc 31.5 g/gl (32-36); Mean Corpuscular Hgb 30.2 pg (27.0-32.0); Mean Corpuscular Volume 95.9 fL (81-99); Mean Platelet Vol. 9.2 fl (6.2-12.0); Monocyte# 0.38 X10^3/uL; Neutrophil # 4.13 X10^3/uL (2.7-7.7); Neutrophil % 65.1 % (47-70); POSITIVE COUNT NO; POSITIVE DIFFERENTIAL NO; POSITIVE MORPHOLOGY NO; Platelet Count 395 K/mm3 (150-450); RBC Distribution Width CV 13.5 % (11.6-14.6); RBC Distribution Width SD 45.1 fl (35.1-43.9); Red Blood Count 3.41 M/mm3 (4.2-5.4); White Blood Count 6.3 K/mm3 (4.4-11.0)
[2018-08-17 14:51] LABS: ALB/GLOB Ratio 0.7 RATIO (0.9-2.4); AST(SGOT) 9 U/L (15-37); Alanine Aminotransfer ALT/SGPT 14 U/L (13-56); Albumin, Serum 2.9 g/dL (3.2-5.0); Alkaline Phosphatase 93 U/L (45-117); Anion Gap 8 (5-15); BUN 5 mg/dL (7-18); BUN/Creat Ratio 8.5 RATIO (10-20); Calcium,Total 8.2 mg/dL (8.5-10.1); Chloride 110 mmol/L (98-107); Creatinine, Serum 0.59 mg/dL (0.55-1.02); EST Glomerular Filtration Rate 116 mL/min (>60); Est Glom Filt Rate - Afr Amer 140 mL/min (>60); Globulin 4.1 g/dL (2.2-4.2); Glucose 96 mg/dL (74-106); Potassium 2.9 mmol/L (3.5-5.1); Sodium Level 145 mmol/L (136-145)
== END ==
LOC: MEDOUTP 13:40
PROVIDERS: Referring Provider Internal Medicine Infectious Disease; Visit Provider Internal Medicine Infectious Disease
DX: K65.1 Peritoneal abscess (principal)
CPT/HCPCS: 96365; 80053; 85025; J7050; A4216

== ENCOUNTER → 2018-08-18 13:48 | Outpatient (CLI) | payer MEDICARE, SELFPAY ==
[2018-08-09 14:20] VITALS: BMI 24.3
[2018-08-17 13:50] VITALS: BMI 24.3
[2018-08-18 14:16] VITALS: BP 141/68; PULSE 71; RESP 16; TEMP 36.6; O2SAT 100; BMI 24.3
== END ==
LOC: MEDOUTP 13:49
PROVIDERS: Referring Provider Internal Medicine Infectious Disease; Visit Provider Internal Medicine Infectious Disease
DX: K65.1 Peritoneal abscess (principal)
CPT/HCPCS: 96365; J7050; A4216

== ENCOUNTER → 2018-08-19 14:08 | Outpatient (CLI) | payer SELFPAY ==
[2018-08-09 14:20] VITALS: BMI 24.3
[2018-08-18 14:16] VITALS: BMI 24.3
[2018-08-19 14:12] VITALS: BP 144/85; PULSE 89; RESP 16; TEMP 36.2; O2SAT 98; BMI 24.3
== END ==
LOC: MEDOUTP 14:08
PROVIDERS: Referring Provider Internal Medicine Infectious Disease; Visit Provider Internal Medicine Infectious Disease
DX: K65.1 Peritoneal abscess (principal)
CPT/HCPCS: 96365; J7050; A4216

== ENCOUNTER 2018-08-20 14:09 | Outpatient (CLI) | payer SELFPAY ==
[2018-08-09 14:20] VITALS: BMI 24.3
[2018-08-19 14:12] VITALS: BMI 24.3
[2018-08-20] MEDS: 0.9% NaCl IVPB Med Flush (250 mL) 15 ML IV (14:20)
[2018-08-20] MEDS: 0.9% NaCl PICC Flush IV ×2 (14:20→15:20)
[2018-08-20 14:29] VITALS: BP 121/74; PULSE 74; RESP 16; TEMP 36.9; O2SAT 95
== END 2018-08-20 15:30 | disposition home or self-care (01) ==
LOC: MEDOUTP 14:09 → MS3 14:10
PROVIDERS: Referring Provider Internal Medicine Infectious Disease; Visit Provider Internal Medicine Infectious Disease
DX: K65.1 Peritoneal abscess (principal)
CPT/HCPCS: 96365; J7050; A4216

== ENCOUNTER 2018-08-21 13:55 | Outpatient (CLI) | payer SELFPAY ==
[2018-08-09 14:20] VITALS: BMI 24.3
[2018-08-19 14:12] VITALS: BMI 24.3
[2018-08-21 14:13] VITALS: BP 128/56; PULSE 81; RESP 16; TEMP 37.2; O2SAT 99
[2018-08-21] MEDS: 0.9% NaCl PICC Flush IV (15:08)
== END 2018-08-21 15:15 | disposition home or self-care (01) ==
LOC: MEDOUTP 13:57 → MS3 14:00
PROVIDERS: Referring Provider Internal Medicine Infectious Disease; Visit Provider Internal Medicine Infectious Disease
DX: K65.1 Peritoneal abscess (principal)
CPT/HCPCS: 96365; A4216

== ENCOUNTER → 2018-08-22 13:37 | Outpatient (CLI) | payer SELFPAY ==
[2018-08-19 14:12] VITALS: BMI 24.3
[2018-08-22 13:42] VITALS: BP 136/70; PULSE 78; RESP 16; O2SAT 99; BMI 24.3
== END ==
PROVIDERS: Visit Provider Internal Medicine Infectious Disease
DX: K65.1 Peritoneal abscess (principal)
CPT/HCPCS: 96365; J7050; A4216

== ENCOUNTER 2018-08-23 14:21 | Outpatient (CLI) | payer SELFPAY ==
[2018-08-09 14:20] VITALS: BMI 24.3
[2018-08-22 13:42] VITALS: BMI 24.3
[2018-08-23 17:21] VITALS: BP 103/56; PULSE 86; RESP 18; TEMP 36.9; O2SAT 96; BMI 24.3
== END 2018-08-23 15:05 | disposition home or self-care (01) ==
LOC: MEDOUTP 14:21 → MS2 14:23
PROVIDERS: Referring Provider Internal Medicine Infectious Disease; Visit Provider Internal Medicine Infectious Disease
DX: K65.1 Peritoneal abscess (principal)
CPT/HCPCS: 96365

== ENCOUNTER → 2018-08-24 14:00 | Outpatient (CLI) | payer SELFPAY ==
[2018-08-22 13:42] VITALS: BMI 24.3
[2018-08-23 17:21] VITALS: BMI 24.3
[2018-08-24 15:03] VITALS: BP 118/68; PULSE 80; RESP 16; TEMP 36.8; O2SAT 96; BMI 23.6
[2018-08-24 15:08] LABS: Absolute Lymphocyte Count 2.16 X10^3/ul (0.83-4.51); Basophil# 0.03 X10^3/uL; Basophil% 0.4 % (0-1); Eosinophil# 0.29 X10^3/uL; Eosinophils% 3.5 % (0-5); Hematocrit 31.6 % (37-47); Hemoglobin 10.2 g/dl (12.0-15.0); Lymphocyte # 2.16 X10^3/ul (4.0); Lymphocyte % 26.3 % (19-41); Mean Corp Hgb Conc 32.3 g/gl (32-36); Mean Corpuscular Hgb 30.3 pg (27.0-32.0); Mean Corpuscular Volume 93.8 fL (81-99); Mean Platelet Vol. 9.2 fl (6.2-12.0); Monocyte# 0.66 X10^3/uL; Neutrophil # 5.04 X10^3/uL (2.7-7.7); Neutrophil % 61.6 % (47-70); Platelet Count 346 K/mm3 (150-450); RBC Distribution Width SD 47.7 fl (35.1-43.9); Red Blood Count 3.37 M/mm3 (4.2-5.4); White Blood Count 8.2 K/mm3 (4.4-11.0)
[2018-08-24 15:10] LABS: POSITIVE COUNT NO; POSITIVE DIFFERENTIAL NO; POSITIVE MORPHOLOGY NO
[2018-08-24 15:32] LABS: ALB/GLOB Ratio 0.7 RATIO (0.9-2.4); AST(SGOT) 12 U/L (15-37); Alanine Aminotransfer ALT/SGPT 13 U/L (13-56); Alkaline Phosphatase 107 U/L (45-117); Anion Gap 10 (5-15); BUN 7 mg/dL (7-18); BUN/Creat Ratio 15.2 RATIO (10-20); Calcium,Total 8.2 mg/dL (8.5-10.1); Chloride 108 mmol/L (98-107); Creatinine, Serum 0.46 mg/dL (0.55-1.02); EST Glomerular Filtration Rate 153 mL/min (>60); Est Glom Filt Rate - Afr Amer 186 mL/min (>60); Estimated Creatinine Clearance 127.75 ml/min; Globulin 4.3 g/dL (2.2-4.2); Glucose 79 mg/dL (74-106); Potassium 2.7 mmol/L (3.5-5.1); Protein, Total 7.3 g/dL (6.4-8.2); Sodium Level 144 mmol/L (136-145)
== END ==
LOC: MEDOUTP 14:03
PROVIDERS: Referring Provider Internal Medicine Infectious Disease; Visit Provider Internal Medicine Infectious Disease
DX: K65.1 Peritoneal abscess (principal)
CPT/HCPCS: 96365; 36592; 80053; 85025; J7050; A4216

== ENCOUNTER → 2018-08-25 14:00 | Outpatient (CLI) | payer SELFPAY ==
[2018-08-24 15:03] VITALS: BMI 23.6
[2018-08-25 14:11] VITALS: BP 126/75; PULSE 75; RESP 16; TEMP 36.7; BMI 23.6
== END ==
LOC: MEDOUTP 14:00
PROVIDERS: Referring Provider Internal Medicine Infectious Disease; Visit Provider Internal Medicine Infectious Disease
DX: K65.1 Peritoneal abscess (principal)
CPT/HCPCS: 96365; J7050; A4216

== ENCOUNTER → 2018-08-26 14:03 | Outpatient (CLI) | payer SELFPAY ==
[2018-08-24 15:03] VITALS: BMI 23.6
[2018-08-25 14:11] VITALS: BMI 23.6
[2018-08-26 14:39] VITALS: BP 151/63; PULSE 85; RESP 16; TEMP 36.7; O2SAT 99; BMI 23.6
== END ==
LOC: MEDOUTP 14:03
PROVIDERS: Referring Provider Internal Medicine Infectious Disease; Visit Provider Internal Medicine Infectious Disease
DX: K65.1 Peritoneal abscess (principal)
CPT/HCPCS: 96365; A4216

== ENCOUNTER 2018-08-27 13:44 | Outpatient (CLI) | payer SELFPAY ==
[2018-08-24 15:03] VITALS: BMI 23.6
[2018-08-26 14:39] VITALS: BMI 23.6
[2018-08-27] MEDS: 0.9% NaCl PICC Flush IV (15:25)
== END 2018-08-27 15:20 | disposition home or self-care (01) ==
LOC: MEDOUTP 13:46 → MS3 13:49
PROVIDERS: Referring Provider Internal Medicine Infectious Disease; Visit Provider Internal Medicine Infectious Disease
DX: N65.1 Disproportion of reconstructed breast (principal)
CPT/HCPCS: 96365

== ENCOUNTER 2018-08-28 13:33 | Outpatient (CLI) | payer SELFPAY ==
[2018-08-24 15:03] VITALS: BMI 23.6
[2018-08-26 14:39] VITALS: BMI 23.6
[2018-08-28] MEDS: 0.9% NaCl IVPB Med Flush (250 mL) 15 ML IV (13:48)
[2018-08-28] MEDS: 0.9% NaCl PICC Flush IV ×2 (13:48→14:44)
[2018-08-28 14:02] VITALS: BP 135/79; PULSE 72; RESP 18; TEMP 36.9; O2SAT 100
== END 2018-08-28 14:45 | disposition home or self-care (01) ==
LOC: MEDOUTP 13:33 → MS3 13:34
PROVIDERS: Referring Provider Internal Medicine Infectious Disease; Visit Provider Internal Medicine Infectious Disease
DX: K65.1 Peritoneal abscess (principal)
CPT/HCPCS: 96365; J7050; A4216

== ENCOUNTER → 2018-08-29 13:44 | Outpatient (CLI) | payer SELFPAY ==
[2018-08-24 15:03] VITALS: BMI 23.6
[2018-08-26 14:39] VITALS: BMI 23.6
[2018-08-29 14:09] VITALS: BP 140/77; PULSE 75; RESP 16; TEMP 36.5; O2SAT 99; BMI 23.6
== END ==
LOC: MEDOUTP 13:44
PROVIDERS: Referring Provider Internal Medicine Infectious Disease; Visit Provider Internal Medicine Infectious Disease
DX: K65.1 Peritoneal abscess (principal)
CPT/HCPCS: 96365; J7050; A4216

== ENCOUNTER → 2018-08-30 14:07 | Outpatient (CLI) | payer SELFPAY ==
[2018-08-24 15:03] VITALS: BMI 23.6
[2018-08-29 14:09] VITALS: BMI 23.6
[2018-08-30 14:26] VITALS: BP 126/70; PULSE 76; RESP 16; TEMP 36.8; O2SAT 99; BMI 23.8
== END ==
LOC: MEDOUTP 14:07
PROVIDERS: Referring Provider Internal Medicine Infectious Disease; Visit Provider Internal Medicine Infectious Disease
DX: K65.1 Peritoneal abscess (principal)
CPT/HCPCS: 96365; J7050; A4216

== ENCOUNTER → 2018-08-31 13:54 | Outpatient (CLI) | payer SELFPAY ==
[2018-08-30 14:26] VITALS: BMI 23.8
[2018-08-31 14:28] VITALS: BP 131/65; PULSE 82; RESP 16; TEMP 36.6; O2SAT 100; BMI 23.8
[2018-08-31 14:37] LABS: Absolute Lymphocyte Count 2.02 X10^3/ul (0.83-4.51); Absolute Neutrophil Count 6.1 X10^3/uL (2.0-7.7); Basophil# 0.04 X10^3/uL; Basophil% 0.4 % (0-1); Eosinophil# 0.21 X10^3/uL; Eosinophils% 2.3 % (0-5); Hematocrit 33.2 % (37-47); Hemoglobin 10.5 g/dl (12.0-15.0); Lymphocyte # 2.02 X10^3/ul (4.0); Lymphocyte % 22.5 % (19-41); Mean Corp Hgb Conc 31.6 g/gl (32-36); Mean Corpuscular Hgb 29.6 pg (27.0-32.0); Mean Corpuscular Volume 93.5 fL (81-99); Mean Platelet Vol. 8.8 fl (6.2-12.0); Monocyte% 6.7 % (0-10); Neutrophil # 6.09 X10^3/uL (2.7-7.7); Platelet Count 374 K/mm3 (150-450); RBC Distribution Width CV 13.8 % (11.6-14.6); RBC Distribution Width SD 47.2 fl (35.1-43.9); Red Blood Count 3.55 M/mm3 (4.2-5.4)
[2018-08-31 14:38] LABS: POSITIVE COUNT NO; POSITIVE DIFFERENTIAL NO; POSITIVE MORPHOLOGY NO
[2018-08-31 14:58] LABS: ALB/GLOB Ratio 0.7 RATIO (0.9-2.4); AST(SGOT) 9 U/L (15-37); Alanine Aminotransfer ALT/SGPT 14 U/L (13-56); Albumin, Serum 2.9 g/dL (3.2-5.0); Alkaline Phosphatase 123 U/L (45-117); Anion Gap 8 (5-15); BUN 5 mg/dL (7-18); BUN/Creat Ratio 10.2 RATIO (10-20); Calcium,Total 8.2 mg/dL (8.5-10.1); Chloride 108 mmol/L (98-107); Creatinine, Serum 0.49 mg/dL (0.55-1.02); EST Glomerular Filtration Rate 143 mL/min (>60); Est Glom Filt Rate - Afr Amer 173 mL/min (>60); Globulin 4.1 g/dL (2.2-4.2); Glucose 123 mg/dL (74-106); Potassium 2.6 mmol/L (3.5-5.1); Sodium Level 143 mmol/L (136-145)
== END ==
LOC: MEDOUTP 13:54
PROVIDERS: Visit Provider Internal Medicine Infectious Disease
DX: K65.1 Peritoneal abscess (principal)
CPT/HCPCS: 96365; 36592; 80053; 85025; J7050; A4216

== ENCOUNTER → 2018-09-01 15:02 | Outpatient (CLI) | payer SELFPAY ==
[2018-08-30 14:26] VITALS: BMI 23.8
[2018-08-31 14:28] VITALS: BMI 23.8
[2018-09-01 15:23] VITALS: BP 140/75; PULSE 80; RESP 16; TEMP 37.1; O2SAT 98; BMI 24.3
== END ==
LOC: MEDOUTP 15:03
PROVIDERS: Referring Provider Internal Medicine Infectious Disease; Visit Provider Internal Medicine Infectious Disease
DX: K65.1 Peritoneal abscess (principal)
CPT/HCPCS: 96365; J7050; A4216

== ENCOUNTER → 2018-09-02 12:31 | Outpatient (CLI) | payer SELFPAY ==
[2018-08-30 14:26] VITALS: BMI 23.8
[2018-09-01 15:23] VITALS: BMI 24.3
[2018-09-02 12:49] VITALS: BP 130/61; PULSE 66; RESP 16; TEMP 36.8; O2SAT 98; BMI 24.3
== END ==
LOC: MEDOUTP 12:31
PROVIDERS: Referring Provider Internal Medicine Infectious Disease; Visit Provider Internal Medicine Infectious Disease
DX: K65.1 Peritoneal abscess (principal)
CPT/HCPCS: 96365; J7050; A4216

== ENCOUNTER 2018-09-03 13:44 | Outpatient (CLI) | payer SELFPAY ==
[2018-08-30 14:26] VITALS: BMI 23.8
[2018-09-02 12:49] VITALS: BMI 24.3
[2018-09-03] MEDS: 0.9% NaCl PICC Flush IV ×2 (13:58→14:39)
[2018-09-03 14:00] VITALS: BP 117/54; PULSE 73; RESP 18; TEMP 36.9; O2SAT 100
== END 2018-09-03 14:40 | disposition home or self-care (01) ==
LOC: MEDOUTP 13:44 → MS3 13:45
PROVIDERS: Referring Provider Internal Medicine Infectious Disease; Visit Provider Internal Medicine Infectious Disease
DX: K65.1 Peritoneal abscess (principal)
CPT/HCPCS: 96365; J7050; A4216

== ENCOUNTER 2018-09-04 13:40 | Outpatient (CLI) | payer SELFPAY ==
[2018-08-30 14:26] VITALS: BMI 23.8
[2018-09-02 12:49] VITALS: BMI 24.3
[2018-09-04 13:59] VITALS: BP 114/71; PULSE 84; RESP 18; TEMP 37.1; O2SAT 98
[2018-09-04] MEDS: 0.9% NaCl PICC Flush IV (14:42)
== END 2018-09-04 14:45 | disposition home or self-care (01) ==
LOC: MEDOUTP 13:40 → MS3 13:41
PROVIDERS: Referring Provider Internal Medicine Infectious Disease; Visit Provider Internal Medicine Infectious Disease
DX: K65.1 Peritoneal abscess (principal)
CPT/HCPCS: 96365; J7040; A4216

== ENCOUNTER → 2018-09-05 13:47 | Outpatient (CLI) | payer SELFPAY ==
[2018-08-30 14:26] VITALS: BMI 23.8
[2018-09-02 12:49] VITALS: BMI 24.3
[2018-09-05 14:00] VITALS: BP 132/70; PULSE 72; RESP 16; TEMP 36.9; O2SAT 97; BMI 23.6
== END ==
LOC: MEDOUTP 13:47
PROVIDERS: Referring Provider Internal Medicine Infectious Disease; Visit Provider Internal Medicine Infectious Disease
DX: K65.1 Peritoneal abscess (principal)
CPT/HCPCS: 96365; J7050; A4216

== ENCOUNTER → 2018-09-06 13:48 | Outpatient (CLI) | payer SELFPAY ==
[2018-08-30 14:26] VITALS: BMI 23.8
[2018-09-05 14:00] VITALS: BMI 23.6
[2018-09-06 14:09] VITALS: BP 140/82; PULSE 80; RESP 16; TEMP 36.8; O2SAT 100
[2018-09-06 14:10] VITALS: BMI 23.6
[2018-09-06 14:13] LABS: Absolute Lymphocyte Count 1.55 X10^3/ul (0.83-4.51); Absolute Neutrophil Count 5.2 X10^3/uL (2.0-7.7); Basophil# 0.03 X10^3/uL; Basophil% 0.4 % (0-1); Eosinophils% 1.4 % (0-5); Hematocrit 32.7 % (37-47); Hemoglobin 10.6 g/dl (12.0-15.0); Lymphocyte # 1.55 X10^3/ul (4.0); Lymphocyte % 21.4 % (19-41); Mean Corp Hgb Conc 32.4 g/gl (32-36); Mean Corpuscular Hgb 30.6 pg (27.0-32.0); Mean Corpuscular Volume 94.5 fL (81-99); Mean Platelet Vol. 9.2 fl (6.2-12.0); Monocyte# 0.34 X10^3/uL; Monocyte% 4.7 % (0-10); Neutrophil # 5.22 X10^3/uL (2.7-7.7); Platelet Count 402 K/mm3 (150-450); RBC Distribution Width CV 13.6 % (11.6-14.6); RBC Distribution Width SD 45.1 fl (35.1-43.9); Red Blood Count 3.46 M/mm3 (4.2-5.4); White Blood Count 7.3 K/mm3 (4.4-11.0)
[2018-09-06 14:14] LABS: POSITIVE COUNT NO; POSITIVE DIFFERENTIAL NO; POSITIVE MORPHOLOGY NO
[2018-09-06 14:24] LABS: ALB/GLOB Ratio 0.6 RATIO (0.9-2.4); AST(SGOT) 21 U/L (15-37); Alanine Aminotransfer ALT/SGPT 24 U/L (13-56); Albumin, Serum 2.9 g/dL (3.2-5.0); Alkaline Phosphatase 155 U/L (45-117); Anion Gap 8 (5-15); BUN 6 mg/dL (7-18); BUN/Creat Ratio 12.5 RATIO (10-20); Calcium,Total 8.4 mg/dL (8.5-10.1); Chloride 108 mmol/L (98-107); Creatinine, Serum 0.48 mg/dL (0.55-1.02); EST Glomerular Filtration Rate 146 mL/min (>60); Est Glom Filt Rate - Afr Amer 177 mL/min (>60); Estimated Creatinine Clearance 122.43 ml/min; Globulin 4.5 g/dL (2.2-4.2); Glucose 86 mg/dL (74-106); Potassium 2.9 mmol/L (3.5-5.1); Protein, Total 7.4 g/dL (6.4-8.2); Sodium Level 143 mmol/L (136-145)
== END ==
PROVIDERS: Referring Provider Internal Medicine Infectious Disease; Visit Provider Internal Medicine Infectious Disease
DX: K65.1 Peritoneal abscess (principal)
CPT/HCPCS: 96365; 80053; 85025; J7050; A4216

== ENCOUNTER 2022-08-18 17:23 | Observation (INO) | payer SELFPAY ==
[2022-08-18 17:24] VITALS: BP 127/75; PULSE 100; RESP 15; TEMP 36.8; O2SAT 100; BMI 24.3
[2022-08-18 17:38] VITALS: BP 140/79; PULSE 90; RESP 21; O2SAT 98
--- NOTE | 2022-08-18 17:52 | EX.ED.DYSGE1 ---
HPI History of Present Illness Chief Complaint: Back Detail of Chief Complaint: Neck and back pain Informant: patient Narrative Narrative: Patient presents the emergency department complaint of neck and back pain for 5 days. Patient describes a burning sensation in her back towards her neck and into her skull. She denies any injury to her back. Pain is not worse with breathing. Patient denies recent illness. 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 The air in the bladder start about 2 weeks ago. Patient rates her pain a 10 out of 10 in her back. Patient has history of a stent in her heart. She does have history of Crohn's colitis and has had multiple abdominal surgeries. Patient denies pain radiating into her arms or legs. [facility] Medical History (Updated 08/18/22 @ 20:[address] Maribel Cain, ) Ankle fracture Colitis Crohn disease IBS (irritable bowel syndrome) Mitral valve prolapse RSD (reflex sympathetic dystrophy) Home Medications cyanocobalamin (vitamin B-12) 1,000 mcg sublingual tablet 500 mcg sublingual DAILY 07/21/18 [History Last Taken Unknown] fluconazole 200 mg tablet (Diflucan) 200 mg PO DAILY 07/21/18 [History Last Taken Unknown] hydromorphone 2 mg tablet 2 mg PO Q6H PRN PRN Pain 07/21/18 [History Last Taken Unknown] levothyroxine 100 mcg tablet 100 mcg PO DAILY 07/21/18 [History Last Taken Unknown] magnesium 250 mg tablet 1 tab PO DAILY 07/21/18 [History Last Taken Unknown] multivitamin with folic acid 400 mcg tablet (Thera) 1 tab PO DAILY 07/21/18 [History Last Taken Unknown] Potassium Chloride [Klor-Con M20] 20 meq PO DAILY 07/28/18 [History Last Taken Unknown] B-complex with vitamin C 1 ea PO DAILY 07/29/18 [History Last Taken Unknown] Calcium 500 mg PO DAILY 07/29/18 [History Last Taken Unknown] Vitamin D3 500 mg 07/29/18 [History Last Taken Unknown] isosorbide mononitrate 30 mg tablet,extended release 24 hr 30 mg PO DAILY 08/18/22 [History Last Taken Unknown] Allergy/AdvReac Type Severity Reaction Status Date / Time doxycycline Allergy Other Verified 08/29/18 14:14 erythromycin base Allergy Hives Verified 08/29/18 14:14 [From Erythrocin] metronidazole [From Flagyl] Allergy Other Verified 08/29/18 14:14 Surgical History H/O heart artery stent Social History Smoking Status: Current every day smoker tobacco type: cigarettes ROS ROS ED Review of Systems ROS Unobtainable: other Constitutional Constitutional ED: Reports lethargy; Denies chills, fever(s), sweats or weight loss Eyes Eyes: Denies blurry vision, change in vision or diplopia ENT ENT ED: Denies rhinorrhea or sore throat Cardiovascular Cardiovascular: Denies chest pain, orthopnea or racing heartbeat Respiratory/Chest Respiratory/Chest: Reports dyspnea and dyspnea on exertion; Denies cough, orthopnea or sputum Gastrointestinal Gastrointestinal: Denies abdominal pain, diarrhea, nausea or vomiting Genitourinary Genitourinary ED: Denies dysuria, hematuria or urinary frequency Musculoskeletal Musculoskeletal: Reports back pain and neck pain; Denies arthralgias or myalgias Integumentary Denies abscess, Abrasions or rash Neurologic Neurologic: Denies headache(s) or weakness Psychiatric Psychiatric: Denies anxiety, depression or suicidal thoughts Endocrine Endocrinology: Denies polydipsia, polyphagia or polyuria Hematologic/Lymphatic Hematologic/Lymphatic: Denies easy bleeding, easy bruising or lymphadenopathy Allergic/Immunologic Allergic/Immunologic ED: Denies mouth swelling, tongue swelling or urticaria EXAM Physical Exam Const Vital Signs: 08/18/22 17:24 08/18/22 17:38 08/18/22 17:39 Temperature 98.3 F Temperature Source Temporal Pulse Rate 100 90 Respiratory Rate 15 21 H Respiratory Effort Normal Non-Labored Blood Pressure 127/75 H 140/79 H Blood Pressure Mean 92 99 Pulse Ox 100 98 Oxygen Delivery Method Room Air Room Air 08/18/22 18:31 08/18/22 19:34 08/18/22 20:07 Temperature Temperature Source Pulse Rate 79 89 82 Respiratory Rate 17 14 18 Respiratory Effort Blood Pressure 116/67 110/81 H 116/52 L Blood Pressure Mean 83 90 73 Pulse Ox 95 97 97 Oxygen Delivery Method Room Air Room Air Room Air Positive well nourished and well developed General Appearance ED: well developed and NAD HEENT Reports TM's clear and moist mucous membranes normocephalic and atraumatic; Negative for trauma or tenderness Tympanic Membrane ED: Yes TM's clear Eyes PERRL and EOMs intact bilaterally General Eye ED: Negative for pale conjunctiva or scleral icterus Neck no lymphadenopathy, supple and no JVD General: Negative for tenderness Chest Wall inspection of chest normal and palpation of chest normal Chest: Negative for tenderness Resp normal respiratory effort and clear to auscultation bilaterally Effort and Inspection: Negative for respiratory distress or pain with movement Auscultation: Negative for rhonchi, wheezes or diminished lung sounds Cardio regular rate, regular rhythm, S1 normal heart sound, S2 normal heart sound and no murmurs Peripheral Pulses: pulses 2+ throughout GI normal to inspection, nondistended, normoactive bowel sounds, soft to palpation, non-tender, non-distended and no masses Back/Spine no CVA tenderness and no thoracic nor lumbar tenderness Back/Spine Narrative: Evaluation of her back reveals that she has some diffuse tenderness palpation over the cervical and thoracic paraspinal musculature bilaterally. There is no erythema or warmth noted. No bony step-offs noted. There is no ecchymosis or bruising noted. Extremity normal to inspection General Extremety ED: Negative for edema General Extremity: Negative for edema Neuro oriented x3, CN's II-XII intact bilaterally, no sensory deficits noted and gait normal Sensorium / Orientation: awake, alert, oriented to person, oriented to place and oriented to time Motor Exam: strength 5/5 throughout and strength abnormal Psych mental status grossly normal Skin no rashes or lesions noted and no wounds MDM MDM MDM Narrative Medical decision making narrative: IV line established. Patient was medicated Dilaudid and Zofran. EKG obtained showed a sinus rhythm with ventricular rate of 85 bpm with old septal infarct. Troponin was normal. Chemistries unremarkable other than slightly depressed potassium of 3.4. CT a of the chest was unremarkable. CT abdomen pelvis with IV contrast showed no evidence of fistula but did show some thickening of the rectosigmoid colon which could be related to an inflammatory process. Patient had a CT scan of the C-spine that showed some degenerative changes but no fractures. After I discussed results of CTA of the chest and abdomen with the patient she told me that she was seen at a chiropractor's 2 days ago and had adjustment of her neck and she was worried about something neurologic going on as she feels like her hands are weak at times and she is dropping things and she has been shaking. We then subsequently obtained a CT of the C-spine. Patient continues to have pain in her upper neck and back. We will discuss case with hospitalist to evaluate patient for admission. Patient also tells me she is lost control of her bladder x2 in the last 5 days which is unusual. Patient may require further imaging such as MRI of the neck and back to evaluate further. Lab Data Attestation: I reviewed the patient's lab results. Labs: Laboratory Results - last 24 hr 08/18/22 08/18/22 08/18/22 18:01 18:01 18:01 WBC 9.2 RBC 4.00 L Hgb 13.0 Hct 39.7 MCV 99.3 H MCH 32.5 H MCHC 32.7 RDW Std Deviation 45.6 H RDW Coeff of Siri 12.6 Plt Count 329 MPV 9.3 Immature Gran % (Auto) 0.300 Neut % (Auto) 70.0 Lymph % (Auto) 19.3 Cherry % (Auto) 8.1 Eos % (Auto) 1.8 Baso % (Auto) 0.5 Absolute Neuts (auto) 6.4 Absolute Lymphs (auto) 1.77 Nucleated RBC % 0 Sodium 140 Potassium 3.4 L Chloride 108 H Carbon Dioxide 26.0 Anion Gap 6 BUN 12 Creatinine 0.63 Estim Creat Clear Calc 89.18 Est GFR (MDRD) Af Amer 128 Est GFR (MDRD) Non-Af 106 BUN/Creatinine Ratio 19.1 Glucose 88 Lactic Acid 0.9 Calcium 8.6 Troponin I High Sens 3 Urine Color Urine Clarity Urine pH Ur Specific [place] Urine Protein Urine Glucose (UA) Urine Ketones Urine Occult Blood Urine Nitrite Urine Bilirubin Urine Urobilinogen Ur Leukocyte Esterase Urine RBC Urine WBC Ur Squamous Epith Cells Urine Bacteria Urine Mucus 08/18/22 19:31 WBC RBC Hgb Hct MCV MCH MCHC RDW Std Deviation RDW Coeff of Siri Plt Count MPV Immature Gran % (Auto) Neut % (Auto) Lymph % (Auto) Cherry % (Auto) Eos % (Auto) Baso % (Auto) Absolute Neuts (auto) Absolute Lymphs (auto) Nucleated RBC % Sodium Potassium Chloride Carbon Dioxide Anion Gap BUN Creatinine Estim Creat Clear Calc Est GFR (MDRD) Af Amer Est GFR (MDRD) Non-Af BUN/Creatinine Ratio Glucose Lactic Acid Calcium Troponin I High Sens Urine Color Yellow Urine Clarity Clear Urine pH 6.0 Ur Specific [place] 1.015 Urine Protein 15 H Urine Glucose (UA) Normal Urine Ketones Negative Urine Occult Blood 25 H Urine Nitrite Negative Urine Bilirubin Negative Urine Urobilinogen Normal Ur Leukocyte Esterase 500 H Urine RBC 0-5 SEEN Urine WBC 5-10 SEEN Ur Squamous Epith Cells 0 SEEN Urine Bacteria 0 SEEN Urine Mucus 0 SEEN Radiography Diagnostic Testing: Clinical Impression(s) from Imaging Studies Abdomen/Pelvis CT 08/18/22 18:42 IMPRESSION: 1. Surgical changes of the abdomen reveal resection of the right colon. There is marked wall thickening and luminal narrowing of the distal small bowel. 2. Wall thickening of the rectosigmoid colon suggesting inflammatory process. There is no visualized fistula with the urinary bladder. 3. Hepatic and right renal cysts. 4. Status post cholecystectomy and hysterectomy. Electronically Signed: Ignacio Boogie DO at 19:41 EST Reading Location ID and State: [facility] / [place] Tel [phone], Service support , Chest CTA 08/18/22 18:42 IMPRESSION: Normal CTA chest examination, without a demonstrated pulmonary embolism or arterial dissection. Electronically Signed: Ignacio Boogie DO at 19:36 EST Reading Location ID and State: [facility] / [place] Tel [phone], Service support , Cervical Spine CT 08/18/22 20:11 IMPRESSION: Degenerative changes of the cervical spine as described above. There is no acute fracture or subluxation. Note: MRI is more sensitive than CT in detecting cord injury, ligamentous injury and epidural hematoma. If there is continued clinical concern for any of these entities, MRI should be considered. Electronically Signed: Ignacio Boogie DO at 20:33 EST Reading Location ID and State: [facility] / [place] Tel [phone], Service support , EKG Initial EKG: Attestation: I personally reviewed and interpreted this EKG as follows: Comments: Sinus rhythm with a rate of 85 bpm with old septal infarct otherwise no acute ST segment changes Discharge Plan Dx/Rx/DC Orders Clinical Impression: Acute neck pain, Back pain, History of Crohn's disease Disposition Disposition: Acute Care Hospital [facility]
[2022-08-18] MEDS: 0.9% Normal Saline 1,000 ML 150 ML IV (17:56)
[2022-08-18] MEDS: Ondansetron 4 MG/2 ML Vial IV (17:57)
[2022-08-18] MEDS: HYDROmorphone 1 MG/ML Syringe IV ×2 (17:57→19:42)
[2022-08-18 18:15] LABS: Absolute Lymphocyte Count 1.77 X10^3/uL (0.83-4.51); Absolute Neutrophil Count 6.4 X10^3/uL (2.0-7.7); Basophil# 0.05 X10^3/uL; Basophil% 0.5 % (0-1); Eosinophil# 0.17 X10^3/uL; Eosinophils% 1.8 % (0-5); Hematocrit 39.7 % (37-47); Lymphocyte # 1.77 X10^3/ul (0.83-4.51); Lymphocyte % 19.3 % (19-41); Mean Corp Hgb Conc 32.7 g/dL (32-36); Mean Corpuscular Hgb 32.5 pg (27.0-32.0); Mean Corpuscular Volume 99.3 fL (81-99); Mean Platelet Vol. 9.3 fl (6.2-12.0); Monocyte# 0.74 X10^3/uL; Monocyte% 8.1 % (0-10); NRBC Flagged by Analyzer 0 % (0-5); Neutrophil # 6.43 X10^3/uL (2.7-7.7); Platelet Count 329 K/mm3 (150-450); RBC Distribution Width CV 12.6 % (11.6-14.6); RBC Distribution Width SD 45.6 fl (35.1-43.9); White Blood Count 9.2 K/mm3 (4.4-11.0)
[2022-08-18 18:31] VITALS: BP 116/67; PULSE 79; RESP 17; O2SAT 95
--- NOTE | 2022-08-18 18:42 | CT_ITS ---
STUDY: CTA CHEST REASON FOR EXAM: Female, 52 years old. Back pain. Back and neck pain for 5 days. RADIATION DOSAGE (If Supplied By Facility): CTDIvol = ( 5.42 ) mGy, DLP = ( 253.38 ) mGycm TECHNIQUE: The examination was performed with the intravenous administration of IV 100mL Isovue-370. Post-processing of the angiographic images was performed, with multiplanar reformation and 3D reconstruction. Individualized dose optimization techniques were used for this CT. COMPARISON: CT abdomen and pelvis, August 16, 2022. FINDINGS: Normal enhancement of the main pulmonary artery and right and left pulmonary arteries. Normal enhancement of the bilateral peripheral pulmonary arteries. There is no demonstrated pulmonary embolism. Normal thoracic aorta and visualized great vessels. There is no demonstrated aortic dissection. Normal heart and pericardium. Coronary artery calcifications. Normal mediastinum. Normal hilar regions. Normal visualized trachea and bronchi. The lungs are well expanded. Normal pulmonary parenchyma. Normal pleura. Normal chest wall structures. Normal osseous structures. Normal visualized upper abdomen. CT/CTA Chest W/WO Contrast IMPRESSION: Normal CTA chest examination, without a demonstrated pulmonary embolism or arterial dissection. Electronically Signed: Ignacio Boogie DO at 19:36 EST ,
--- NOTE | 2022-08-18 18:42 | CT_ITS ---
INDICATION: Abdominal pain. History of colovesical fistula. Back pain with numbness and loss of bladder control. History of Crohn''s disease and IBS. EXAMINATION: CT ABDOMEN AND PELVIS WITH CONTRAST - CT Abdomen And Pelvis W/ Contrast Injection TECHNIQUE: Helically acquired images were obtained of the abdomen and pelvis following IV contrast. A radiation dose optimization technique was used for this scan. IV Contrast dosage and agent: 100 mL of Isovue 370 Oral contrast: None. COMPARISON: None. FINDINGS: LOWER CHEST: Lung bases are clear. No cardiomegaly or pericardial effusion. LIVER: Small cyst in segment 8 of an otherwise normal liver. No focal mass. GALLBLADDER AND BILIARY TREE: Status post cholecystectomy. There is minimal intra and extrahepatic biliary ductal dilatation without filling defect PANCREAS: No focal cystic or solid mass. SPLEEN: Normal size without focal cystic or solid mass. ADRENAL GLANDS: No nodules. KIDNEYS AND URETERS: Subcentimeter cyst in the mid right kidney. Normal left kidney. No hydronephrosis. Normal visualized ureters. PERITONEUM: No ascites or free air. No other fluid collection. BOWEL: Nondistended stomach. Is mildly distended small bowel loops in the upper abdomen. There is a thick walled segment of small bowel extending up to an anastomosis with the transverse colon. The right colon is surgically absent. There is wall thickening and luminal narrowing of the rectosigmoid. No obvious fistula with the urinary bladder is seen. LYMPH NODES: No enlarged mesenteric or retroperitoneal lymph nodes. VESSELS: Atherosclerotic changes of the abdominal aorta without aneurysm or dissection. Normal IVC. URINARY BLADDER: Unremarkable. REPRODUCTIVE ORGANS: Unremarkable vaginal cuff. ABDOMINAL WALL: No discrete abdominal or pelvic wall hernia. BONES: Degenerative changes lower lumbar spine most marked at L4-5. No lytic or blastic lesions are seen. CT/Abdomen/Pelvis W IV Cont ONLY IMPRESSION: 1. Surgical changes of the abdomen reveal resection of the right colon. There is marked wall thickening and luminal narrowing of the distal small bowel. 2. Wall thickening of the rectosigmoid colon suggesting inflammatory process. There is no visualized fistula with the urinary bladder. 3. Hepatic and right renal cysts. 4. Status post cholecystectomy and hysterectomy. Electronically Signed: Ignacio Boogie DO at 19:41 EST Reading Location ID and State: [facility] / [place] Tel [phone], Service support ,
[2022-08-18 18:47] LABS: Anion Gap 6 (5-15); BUN 12 mg/dL (7-18); BUN/Creat Ratio 19.1 RATIO (10-20); Calcium,Total 8.6 mg/dL (8.5-10.1); Chloride 108 mmol/L (98-107); Creatinine, Serum 0.63 mg/dL (0.55-1.02); EST Glomerular Filtration Rate 106 mL/min (>60); Est Glom Filt Rate - Afr Amer 128 mL/min (>60); Estimated Creatinine Clearance 89.18 ml/min; Glucose 88 mg/dL (74-106); Lactic Acid 0.9 mmol/L (0.4-1.9); Potassium 3.4 mmol/L (3.5-5.1); Sodium Level 140 mmol/L (136-145); Troponin-I HS 3 pg/mL (3.0-54.0)
[2022-08-18 19:34] VITALS: BP 110/81; PULSE 89; RESP 14; O2SAT 97
[2022-08-18 19:41] LABS: Bacteria 0 SEEN /hpf (None Seen); Mucous, Urine 0 SEEN /hpf (<or=2+); Squamous Epithelial Cells - UA 0 SEEN /hpf (5-10)
[2022-08-18 19:42] LABS: Color, Urine Yellow (Yellow); Glucose, Dipstick Normal (Normal); Ketone-Dipstick Negative (Negative); Leukocyte Esterase-Dipstick 500 /ul (Negative); Nitrite-Dipstick Negative (Negative); Occult Blood-Urine 25 /ul (Negative); Protein-Dipstick 15 mg/dl (Negative); Specific Gravity, Urine 1.015 (1.002-1.030); Urine Bilirubin Dipstick Negative (Negative); Urine Clarity Clear (Clear); Urine Urobilinogen Normal (Normal)
[2022-08-18 19:50] LABS: Red Blood Cells-Urine 0-5 SEEN /hpf (0-5); White Blood Cells 5-10 SEEN /hpf (0-5)
[2022-08-18 20:07] VITALS: BP 116/52; PULSE 82; RESP 18; O2SAT 97
--- NOTE | 2022-08-18 20:11 | CT_ITS ---
STUDY: CT CERVICAL SPINE WITHOUT CONTRAST REASON FOR EXAM: Female, 52 years old. Neck pain following chiropractic adjustment. RADIATION DOSAGE (If Supplied By Facility): CTDIvol = ( 14.39 ) mGy, DLP = ( 301.06 ) mGycm TECHNIQUE: High resolution transaxial imaging was performed without contrast material. Sagittal and coronal images were reconstructed. Individualized dose optimization techniques were used for this CT. COMPARISON: None FINDINGS: Normal craniovertebral junction. Normal anterior atlantoaxial articulation. Normal odontoid process. There is straightening of the normal cervical lordosis. Normal vertebral bodies and posterior osseous elements. C2-3: Normal endplates. Normal disc height and morphology. Normal central canal and intervertebral neuroforamina. C3-4: Normal endplates. Normal disc height and morphology. Normal central canal and intervertebral neuroforamina. C4-5: Normal endplates. Normal disc height and morphology. Normal central canal and intervertebral neuroforamina. C5-6: Minimal endplate spondylosis and loss of disc height with mild bulging annulus. Facet and uncovertebral joint degenerative change.. Normal central canal. Mild narrowing of the bilateral intervertebral neuroforamina. C6-7: Endplate spondylosis with loss of disc height. Mild bulging annulus. Facet normal vertebral joint degenerative change. Minimal stenosis of the central canal. Narrowing of the bilateral intervertebral neuroforamina. C7-T1: Normal endplates. Normal disc height and morphology. Normal central canal and intervertebral neuroforamina. Normal visualized soft tissue structures. CT/Spine Cervical without Contras IMPRESSION: Degenerative changes of the cervical spine as described above. There is no acute fracture or subluxation. Note: MRI is more sensitive than CT in detecting cord injury, ligamentous injury and epidural hematoma. If there is continued clinical concern for any of these entities, MRI should be considered. Electronically Signed: Ignacio Boogie DO at 20:33 [facility] ,
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
[2022-08-18 22:00] VITALS: BP 120/63; PULSE 71; RESP 16; TEMP 37; O2SAT 96
[2022-08-18 22:19] LABS: Magnesium 2.2 mg/dL (1.6-2.6)
[2022-08-19] VITALS (12 sets, daily range): BP systolic 96–122; BP diastolic 53–67; PULSE 67–87; RESP 14–18; TEMP 36.5–36.9; O2SAT 91–99; BMI 24.5
[2022-08-19] MEDS: 0.9% Normal Saline 1,000 ML 125 ML IV (01:05)
[2022-08-19] MEDS: 0.9% Saline Lock 10 ML Syringe IV ×3 (01:05→20:32)
[2022-08-19] MEDS: tiZANidine HCl 2 MG Tablet PO (01:05)
[2022-08-19] MEDS: Potassium Chloride Oral Tablet 20 MEQ 40 MEQ PO (01:05)
[2022-08-19] MEDS: Lidocaine 5% Patch 2 PATCH TOPICAL (01:06)
[2022-08-19] MEDS: Pregabalin 25 MG Capsule PO ×4 (01:06→20:30)
[2022-08-19] MEDS: Ketorolac 15 MG/ML Vial IV ×4 (01:07→20:31)
[2022-08-19] MEDS: HYDROmorphone 0.5 MG/0.5 ML SYRINGE IV (04:39)
[2022-08-19 04:48] LABS: Absolute Lymphocyte Count 2.06 X10^3/uL (0.83-4.51); Basophil# 0.05 X10^3/uL; Basophil% 0.7 % (0-1); Eosinophil# 0.26 X10^3/uL; Eosinophils% 3.7 % (0-5); Hematocrit 38.3 % (37-47); Hemoglobin 12.3 g/dL (12.0-15.0); Lymphocyte # 2.06 X10^3/ul (0.83-4.51); Lymphocyte % 29.1 % (19-41); Mean Corp Hgb Conc 32.1 g/dL (32-36); Mean Corpuscular Hgb 32.6 pg (27.0-32.0); Mean Corpuscular Volume 101.6 fL (81-99); Mean Platelet Vol. 9.2 fl (6.2-12.0); Monocyte% 9.9 % (0-10); NRBC Flagged by Analyzer 0 % (0-5); Neutrophil # 3.98 X10^3/uL (2.7-7.7); Neutrophil % 56.3 % (47-70); Platelet Count 311 K/mm3 (150-450); RBC Distribution Width CV 12.6 % (11.6-14.6); RBC Distribution Width SD 47.1 fl (35.1-43.9); Red Blood Count 3.77 M/mm3 (4.2-5.4); White Blood Count 7.1 K/mm3 (4.4-11.0)
[2022-08-19 05:18] LABS: ALB/GLOB Ratio 0.7 RATIO (0.9-2.4); AST(SGOT) 12 U/L (15-37); Alanine Aminotransfer ALT/SGPT 18 U/L (13-56); Albumin, Serum 2.6 g/dL (3.2-5.0); Alkaline Phosphatase 92 U/L (45-117); Anion Gap 4 (5-15); BUN 10 mg/dL (7-18); Calcium,Total 8.2 mg/dL (8.5-10.1); Chloride 113 mmol/L (98-107); Creatinine, Serum 0.59 mg/dL (0.55-1.02); EST Glomerular Filtration Rate 114 mL/min (>60); Est Glom Filt Rate - Afr Amer 138 mL/min (>60); Estimated Creatinine Clearance 95.22 ml/min; Globulin 3.6 g/dL (2.2-4.2); Glucose 93 mg/dL (74-106); Potassium 3.7 mmol/L (3.5-5.1); Protein, Total 6.2 g/dL (6.4-8.2); Sodium Level 143 mmol/L (136-145)
[2022-08-19] MEDS: Levothyroxine 100 MCG Tablet PO (05:53)
--- NOTE | 2022-08-19 05:55 | MRI_ITS ---
STUDY: MRI CERVICAL SPINE WITHOUT CONTRAST REASON FOR EXAM: Female, 52 years old. Pain, paresthesias, weakness TECHNIQUE: Standardized fat and water weighted pulse sequences were obtained in the sagittal and axial planes. COMPARISON: CT cervical spine August 18, 2022 FINDINGS: Normal foramen magnum and brainstem-cervical cord junction. Normal craniovertebral junction. Normal anterior atlantoaxial articulation. Normal odontoid process. Normal cervical lordosis. Normal vertebral bodies and posterior osseous elements. C2-3: Normal endplates. Normal disc height, signal and morphology. Normal central canal and intervertebral neural foramina. C3-4: Normal endplates. Normal disc height, signal and morphology. Normal central canal and intervertebral neural foramina. C4-5: Normal endplates. Normal disc height, signal and morphology. Normal central canal and intervertebral neural foramina. C5-6: Broad-based posterior disc marginal osteophyte. Normal disc height, signal and morphology. Normal central canal and moderate narrowing bilateral intervertebral neural foramina. C6-7: Broad-based posterior disc marginal osteophyte. Normal disc height, signal and morphology. Normal central canal and moderate narrowing bilateral intervertebral neural foramina. C7-T1: Normal endplates. Normal disc height, signal and morphology. Normal central canal and intervertebral neural foramina. Normal cervical cord. Normal visualized soft tissue structures. MRI/Spine Cervical (Routine) IMPRESSION: Moderate narrowing bilateral neural foramina at C5-6 and C6-7 due to uncinate spondylosis Electronically Signed: Kavon Roland MD at 17:35 EST ,
--- NOTE | 2022-08-19 05:55 | MRI_ITS ---
INDICATION: Back pain, incontinence, weakness EXAMINATION: MRI - MR Spine Lumbar W/O Contrast TECHNIQUE: Multiplanar and multisequence MR images of the lumbar spine. IV Contrast Dosage and Agent: None. COMPARISON: None. FINDINGS: VERTEBRAE: No fracture. Normal vertebral bodies and posterior elements. VERTEBRAL ALIGNMENT: Normal. There is preservation of the normal thoracic kyphosis. No scoliosis. CORD: Unremarkable in signal and morphology. Conus medullaris terminates at the level of L1. There are several Tarlov cysts. L1-L2: Normal disc height and morphology. Normal spinal canal and neuroforamina. L2-L3: Normal disc height and morphology. Normal spinal canal and neuroforamina. L3-L4: Normal disc height and morphology. Normal spinal canal and neuroforamina. Small left perineural cyst. L4-L5: Disc bulge crowding of the traversing L5 nerve roots in the lateral recesses. Mild right neural foraminal stenosis. No spinal canal stenosis. L5-S1: Normal disc height and morphology. Normal spinal canal and neuroforamina. Right perineural cyst. SOFT TISSUES: Mild paraspinous muscles fatty infiltration. MRI/Spine Lumbar (Routine) IMPRESSION: 1. Disc bulge crowds the traversing L5 nerve roots in the lateral recesses at L4-5. There is also mild right neural foraminal stenosis. 2. Multiple perineural cysts detailed above. 3. Mild paraspinous muscle fatty infiltration. Electronically Signed: Robert Linder MD at 17:18 EST ,
--- NOTE | 2022-08-19 05:55 | MRI_ITS ---
INDICATION: Pain, paresthesias, weakness EXAMINATION: MRI - MR Spine Thoracic W/O Contrast TECHNIQUE: Multiplanar and multisequence MR images of the thoracic spine. IV Contrast Dosage and Agent: None. COMPARISON: None. FINDINGS: VERTEBRAE: No fracture. Normal vertebral bodies and posterior elements. VERTEBRAL ALIGNMENT: Normal. There is preservation of the normal thoracic kyphosis. No scoliosis. DISCS: Normal disc height and morphology. Small right T4-5 perineural cyst. Tiny left T7-8 perineural cyst and right T11-12 perineural cyst. Normal spinal canal. No neural foraminal stenosis. CORD: Unremarkable in signal and morphology. Normal conus medullaris. SOFT TISSUES: Unremarkable. MRI/Spine Thoracic (Routine) IMPRESSION: A few small perineural cysts. No spinal canal or neural foraminal stenosis. Normal appearance of the cord. Electronically Signed: Robert Linder MD at 16:49 EST ,
--- NOTE | 2022-08-19 08:03 | PN.HOSP_ITS ---
Subjective Subjective Reports continued burning pain at the base of her skull, feels her legs are spongy more so on the left side. Awaiting MRI for this morning. Objective Data Objective Data Vital Signs: Vital Signs Temp Pulse Resp BP Pulse Ox O2 Del Method 97.7 F L 69 16 122/63 H 99 Room Air 08/19/22 05:47 08/19/22 05:47 08/19/22 05:47 08/19/22 05:47 08/19/22 05:47 08/19/22 05:47 Oxygen Delivery Method Room Air Weight: 65 kg Body Mass Index (BMI) 24.5 Intake & Output: Intake and Output for Last 24 Hours 08/17/22 08/18/22 08/19/22 23:59 23:59 23:59 Intake Total 1350 / 1350 Balance 1350 / 1350 Lab / Micro Data Result Diagrams: 08/19/22 04:30 08/19/22 04:30 Labs: Laboratory Results - last 24 hr 08/18/22 18:01: WBC 9.2, RBC 4.00 L, Hgb 13.0, Hct 39.7, MCV 99.3 H, MCH 32.5 H, MCHC 32.7, RDW Std Deviation 45.6 H, RDW Coeff of Siri 12.6, Plt Count 329, MPV 9.3, Immature Gran % (Auto) 0.300, Neut % (Auto) 70.0, Lymph % (Auto) 19.3, [place] % (Auto) 8.1, Eos % (Auto) 1.8, Baso % (Auto) 0.5, Absolute Neuts (auto) 6.4, Absolute Lymphs (auto) 1.77, Nucleated RBC % 0 08/18/22 18:01: Sodium 140, Potassium 3.4 L, Chloride 108 H, Carbon Dioxide 26.0, Anion Gap 6, BUN 12, Creatinine 0.63, Estim Creat Clear Calc 89.18, Est GFR (MDRD) Af Amer 128, Est GFR (MDRD) Non-Af 106, BUN/Creatinine Ratio 19.1, Glucose 88, Calcium 8.6, Troponin I High Sens 3 08/18/22 18:01: Lactic Acid 0.9 08/18/22 18:01: Magnesium 2.2 08/18/22 19:31: Urine Color Yellow, Urine Clarity Clear, Urine pH 6.0, Ur Specific [place] 1.015, Urine Protein 15 H, Urine Glucose (UA) Normal, Urine Ketones Negative, Urine Occult Blood 25 H, Urine Nitrite Negative, Urine Bilirubin Negative, Urine Urobilinogen Normal, Ur Leukocyte Esterase 500 H, Urine RBC 0-5 SEEN, Urine WBC 5-10 SEEN, Ur Squamous Epith Cells 0 SEEN, Urine Bacteria 0 SEEN, Urine Mucus 0 SEEN 08/19/22 04:30: WBC 7.1, RBC 3.77 L, Hgb 12.3, Hct 38.3, MCV 101.6 H, MCH 32.6 H , MCHC 32.1, RDW Std Deviation 47.1 H, RDW Coeff of Siri 12.6, Plt Count 311, MPV 9.2, Immature Gran % (Auto) 0.300, Neut % (Auto) 56.3, Lymph % (Auto) 29.1, [place] % (Auto) 9.9, Eos % (Auto) 3.7, Baso % (Auto) 0.7, Absolute Neuts (auto) 4.0, Absolute Lymphs (auto) 2.06, Nucleated RBC % 0 08/19/22 04:30: Sodium 143, Potassium 3.7, Chloride 113 H, Carbon Dioxide 26.0, Anion Gap 4 L, BUN 10, Creatinine 0.59, Estim Creat Clear Calc 95.22, Est GFR (MDRD) Af Amer 138, Est GFR (MDRD) Non-Af 114, BUN/Creatinine Ratio 17.0, Glucose 93, Calcium 8.2 L, Total Bilirubin 0.20, AST 12 L, ALT 18, Alkaline Phosphatase 92, Total Protein 6.2 L, Albumin 2.6 L, Globulin 3.6, Albumin/Globulin Ratio 0.7 L Radiography Diagnostic Testing: Radiology Impression Abdomen/Pelvis CT 08/18/22 18:42 IMPRESSION: 1. Surgical changes of the abdomen reveal resection of the right colon. There is marked wall thickening and luminal narrowing of the distal small bowel. 2. Wall thickening of the rectosigmoid colon suggesting inflammatory process. There is no visualized fistula with the urinary bladder. 3. Hepatic and right renal cysts. 4. Status post cholecystectomy and hysterectomy. Electronically Signed: Ignacio Boogie DO at 19:41 EST Reading Location ID and State: [facility] / [place] Tel [phone], Service support , Chest CTA 08/18/22 18:42 IMPRESSION: Normal CTA chest examination, without a demonstrated pulmonary embolism or arterial dissection. Electronically Signed: Ignacio Boogie DO at 19:36 EST Reading Location ID and State: [address] [place] [address] Tel [phone], Service support , Cervical Spine CT 08/18/22 20:11 IMPRESSION: Degenerative changes of the cervical spine as described above. There is no acute fracture or subluxation. Note: MRI is more sensitive than CT in detecting cord injury, ligamentous injury and epidural hematoma. If there is continued clinical concern for any of these entities, MRI should be considered. Electronically Signed: Ignacio Boogie DO at 20:33 EST Reading Location ID and State: [address] [place] [address] Tel [phone], Service support , Physical Exam Const alert and no apparent distress Constitutional Narrative: Oriented HEENT normocephalic and head/scalp atraumatic Eyes Eyes Narrative: EOM grossly intact, anicteric Neck supple Resp normal respiratory effort and clear to auscultation bilaterally Cardio regular rate and regular rhythm GI soft to palpation, non-tender and non-distended Extremity Extremity Narrative: No edema appreciated Neuro moves all extremities Neuro Narrative: No overt focal deficits appreciated Psych Psych Narrative: Cooperative Assessment & Plan Assessment/Plan (1) Back pain: PLAN: Plan #Acute intractable cervical, thoracic, lumbar back pain with subjective lower extremity weakness and possible history of urinary incontinence Fall precautions, low-dose Lyrica, Toradol, lidocaine patches, tizanidine, Medrol Dosepak [place] MRI of spine PT/OT #CAD status post PCI x2 Aspirin Follow-up with her outpatient temperature control inspector #Crohn's disease Reported history of Crohn's disease, follow-up outpatient with gastroenterology Not on any chronic medications Is status post right colon resection reportedly #Hypothyroidism status post partial resection Continue levothyroxine #DVT ppx: SCDs, Lovenox Winsome Colon MD Charges/Coding Visit Charges OBSV E&M: 92277 Subsequent observation care L2
[2022-08-19] MEDS: Potassium Chloride Oral Tablet 20 MEQ PO (08:22)
[2022-08-19] MEDS: MethylPREDNISolone DosePak 4 MG BOX PO ×4 (08:23→20:31)
[2022-08-19] MEDS: Multivitamins,Therapeutic Tablet 1 TABLET PO (08:24)
[2022-08-19] MEDS: Calcium (Elemental) 500 MG Tablet PO (08:24)
[2022-08-19] MEDS: Aspirin 81 MG TAB.CHEW PO (08:26)
[2022-08-19] MEDS: Vitamin B Comp W-C Capsule 1 CAP PO (11:07)
[2022-08-19] MEDS: Isosorbide Mononitrate 30 MG Tablet PO (11:07)
[2022-08-19] MEDS: Cyanocobalamin 500 MCG Tablet PO (11:08)
[2022-08-19] MEDS: Enoxaparin 40 MG/0.4 ML Syringe SC (11:08)
[2022-08-19] MEDS: Ferrous Sulfate 325 MG Tablet PO (11:09)
--- NOTE | 2022-08-19 12:40 | CASEMGMT ---
EZEKIEL SILVERIO Assessment: Face to Face with pt for initial transition planning/care coordination assessment. EZEKIEL SILVERIO introduced self and role at [facility], pt voices understanding and consents to assessment. Pt is A/O x4 and answers all questions appropriately at this time. Pt lying in bed in no distress. Care providers, pharmacy, and demographics verified/updated. Admitting Dx: intractable back pain PCP:Pt states she currently is awaiting for her records to get transferred to Dr.Zachary Robison, once transferred he will accept pt. She denies need for local healthcare directory list. Specialists:Dominga cardio Preferred [facility]acy: [facility] Insurance: Self Pay Prescription Benefit: no, pt states she uses [facility] and denies need to speak to SW regarding any financial assistance. LNOK: Mars Santana, ; Dinah Byers, dtr Living Arrangements: Pt lives with who she is from but states they have their own bedrooms and bathrooms in a ground level apt with 4 steps to enter with a rail. Pt reports she is I in ADL's and denies concerns at home. Transportation: Pt drives self and denies concerns with transportation. DME/HHC/SNF: Pt has a w/c and crutches at home but does not use AD. Pt denies hx of HHC or SNF stays. Pt states no concerns with going home at time of dc. Pt states no further concerns/needs. CM to follow. Advised pt to ask CM if any further question/concerns/needs arise, voices understanding. Pt Goal: Home Plan: Home
[2022-08-19] MEDS: LORazepam 2 MG/ML Syringe IV (14:06)
--- NOTE | 2022-08-19 15:32 | CHAPLAIN ---
Type of Pastoral Visit ___ Initial Visit ___ Follow-up Visit ___ On-call Visit ___ General Patient Visit ___ Spiritual Assessment ___ Family Conference ___ Bereavement ___ Rapid Response ___ Code Blue ___ Other (describe below) Pastoral Care Referral From ___ Patient ___ Family ___ Nurse ___ Physician ___ Transfer Man ___ Printed Circuit Board Pcb Designer ___ Other (describe below) Sacrament/Intervention ___ Active listening ___ Anointing ___ Protestant ___ Bereavement ___ Communion ___ Misty exploration ___ ___ Life review ___ Prayer ___ Reconciliation ___ Sacrament of Sick ___ Supportive presence ___ Wedding ___ Other (describe below) Pastoral Comments two attempts made to give support to patient today; first time pt was sound asleep and the second time she was out of the room for an MRI
[2022-08-19] MEDS: Acetaminophen 325 MG Tablet 650 MG PO (20:30)
[2022-08-19] MEDS: oxyCODONE 5 MG Tablet PO (20:31)
[2022-08-20 03:00] VITALS: BP 125/77; PULSE 75; RESP 18; TEMP 36.6; O2SAT 98
[2022-08-20] MEDS: Acetaminophen 325 MG Tablet 650 MG PO (03:43)
[2022-08-20] MEDS: tiZANidine HCl 2 MG Tablet PO (03:43)
[2022-08-20] MEDS: oxyCODONE 5 MG Tablet PO ×2 (03:44→15:04)
[2022-08-20] MEDS: Levothyroxine 100 MCG Tablet PO (06:34)
[2022-08-20] MEDS: Ketorolac 15 MG/ML Vial IV (06:34)
[2022-08-20] MEDS: 0.9% Saline Lock 10 ML Syringe IV ×2 (06:34→14:29)
[2022-08-20] MEDS: Pregabalin 25 MG Capsule PO ×2 (06:36→15:04)
[2022-08-20 06:40] LABS: Absolute Lymphocyte Count 0.96 X10^3/uL (0.83-4.51); Absolute Neutrophil Count 7.1 X10^3/uL (2.0-7.7); Basophil# 0.03 X10^3/uL; Basophil% 0.4 % (0-1); Hemoglobin 13.4 g/dL (12.0-15.0); Lymphocyte # 0.96 X10^3/ul (0.83-4.51); Lymphocyte % 11.3 % (19-41); Mean Corp Hgb Conc 33.5 g/dL (32-36); Mean Corpuscular Hgb 33.4 pg (27.0-32.0); Mean Corpuscular Volume 99.8 fL (81-99); Mean Platelet Vol. 9.1 fl (6.2-12.0); Monocyte% 3.5 % (0-10); NRBC Flagged by Analyzer 0 % (0-5); Neutrophil # 7.14 X10^3/uL (2.7-7.7); Neutrophil % 84.4 % (47-70); Platelet Count 323 K/mm3 (150-450); RBC Distribution Width CV 12.3 % (11.6-14.6); RBC Distribution Width SD 45.8 fl (35.1-43.9); Red Blood Count 4.01 M/mm3 (4.2-5.4); White Blood Count 8.5 K/mm3 (4.4-11.0)
[2022-08-20 06:51] LABS: Anion Gap 4 (5-15); BUN 11 mg/dL (7-18); BUN/Creat Ratio 20.8 RATIO (10-20); Calcium,Total 8.7 mg/dL (8.5-10.1); Chloride 108 mmol/L (98-107); Creatinine, Serum 0.53 mg/dL (0.55-1.02); EST Glomerular Filtration Rate 129 mL/min (>60); Est Glom Filt Rate - Afr Amer 156 mL/min (>60); Glucose 114 mg/dL (74-106); Potassium 4.1 mmol/L (3.5-5.1); Sodium Level 137 mmol/L (136-145)
[2022-08-20 07:31] VITALS: O2SAT 96
[2022-08-20 07:45] VITALS: BP 127/77; PULSE 69; RESP 16; TEMP 36.6; O2SAT 96
[2022-08-20] MEDS: Potassium Chloride Oral Tablet 20 MEQ PO (07:53)
[2022-08-20] MEDS: Multivitamins,Therapeutic Tablet 1 TABLET PO (07:53)
[2022-08-20] MEDS: Calcium (Elemental) 500 MG Tablet PO (07:54)
[2022-08-20] MEDS: MethylPREDNISolone DosePak 4 MG BOX PO ×2 (07:54→12:49)
[2022-08-20] MEDS: Aspirin 81 MG TAB.CHEW PO (07:55)
[2022-08-20] MEDS: Vitamin B Comp W-C Capsule 1 CAP PO (09:47)
[2022-08-20] MEDS: Lidocaine 5% Patch 2 PATCH TOPICAL (09:48)
[2022-08-20] MEDS: Enoxaparin 40 MG/0.4 ML Syringe SC (09:48)
[2022-08-20] MEDS: Cyanocobalamin 500 MCG Tablet PO (09:49)
[2022-08-20] MEDS: Isosorbide Mononitrate 30 MG Tablet PO (09:49)
--- NOTE | 2022-08-20 10:17 | CASEMGMT ---
Social Work Per Bedside nurse, pt states she has a living will and Health care POA naming her daughter Dinah Byers. Pt is aware that documents are not on file at [facility]. BRETT Marquis
--- NOTE | 2022-08-20 12:26 | CHAPLAIN ---
Type of Pastoral Visit _x__ Initial Visit ___ Follow-up Visit ___ On-call Visit ___ General Patient Visit ___ Spiritual Assessment ___ Family Conference ___ Bereavement ___ Rapid Response ___ Code Blue ___ Other (describe below) Pastoral Care Referral From _x__ Patient ___ Family ___ Nurse ___ Physician ___ Policy Advisor ___ Offender Employment Specialist ___ Other (describe below) Sacrament/Intervention _x__ Active listening ___ Anointing ___ Jewish ___ Bereavement ___ Communion ___ Misty exploration ___ ___ Life review _x__ Prayer ___ Reconciliation ___ Sacrament of Sick ___ Supportive presence ___ Wedding ___ Other (describe below) Pastoral Comments patient is sitting up in bed and states that as long as I don't get up, then I do okay; pt states that she feels a little confused and that something is going to happen today because they took my food and water away, but I don't know what it is; pt does present with a positive outlook and throughout the visit she smiles and uses an upbeat voice; pt asks for prayer and states that she has a background in misty as a Worship
--- NOTE | 2022-08-20 13:59 | CON.PCM.OR_ITS ---
HPI Consult Data Date of Consult: 08/20/22 HPI Narrative Reason for Consultation: Neck and thoracic back pain HPI Narrative: RAJ MARINO, is a 52 F who presents axial neck pain and upper thoracic back pain which she states started insidiously a few weeks ago but has worsened over the past few days. She describes pain and paresthesias which she describes as burning in the occipital part of her skull, the occipitocervical junction and posterior cervical region radiating to the cervical thoracic region and the upper scapular and medial scapular regions and bilateral trapezius regions. She denies any history of neck or back injuries or neck or back surgeries. She states she has had injections in the past with pain management which gave her no relief. She states the last pain management clinic she saw was in [place] about 3 years ago. She states that on Wednesday she had an episode of urinary incontinence while standing at her stove. She presented to the ER here at [facility] the following day where she was seen and evaluated and subsequently admitted. Image studies were performed of her cervical, th oracic, and lumbar spine. Spine surgery has been consulted for evaluation. She denies any other acute numbness tingling weakness or changes in bowel or bladder function. Although she does state that she gets episodic paresthesias globally in the bilateral lower extremities which are not present at this time. [facility]LY [facility] Medical History CAD (coronary artery disease) Crohn disease HLD (hyperlipidemia) HTN (hypertension) IBS (irritable bowel syndrome) Mitral valve prolapse RSD (reflex sympathetic dystrophy) Tobacco use Home Medications cyanocobalamin (vitamin B-12) 1,000 mcg sublingual tablet 500 mcg PO DAILY supplement 07/21/18 [History Last Taken 08/17/22] levothyroxine 100 mcg tablet 100 mcg PO DAILY 07/21/18 [History Last Taken 08/18/22] multivitamin with folic acid 400 mcg tablet (Thera) 1 tab PO DAILY supplement 07/21/18 [History Last Taken 08/18/22] B-complex with vitamin C 1 ea PO DAILY supplement 07/29/18 [History Last Taken Unknown] calcium carbonate 500 mg calcium (1,250 mg) tablet 500 mg PO DAILY supplement 08/18/22 [History Last Taken 08/18/22] ferrous sulfate 324 mg (65 mg iron) tablet,delayed release 324 mg PO DAILY supplement 08/18/22 [History Last Taken 08/18/22] isosorbide mononitrate 30 mg tablet,extended release 24 hr 30 mg PO DAILY 08/18/22 [History Last Taken 08/17/22] potassium chloride 20 mEq tablet,extended release(part/cryst) 20 meq PO DAILY supplement 08/18/22 [History Last Taken Unknown] zinc acetate 50 mg (zinc) capsule 50 mg PO DAILY supplement 08/18/22 [History Last Taken 08/18/22] Allergy/AdvReac Type Severity Reaction Status Date / Time doxycycline Allergy Other Verified 08/29/18 14:14 erythromycin base Allergy Hives Verified 08/29/18 14:14 [From Erythrocin] metronidazole [From Flagyl] Allergy Other Verified 08/29/18 14:14 nitrofurantoin AdvReac Diarrhea Verified 08/19/22 00:26 [From Macrobid] Family History (Updated 08/19/22 @ 02:[address] Margarita Sneed MD) Mother CVA (cerebral vascular accident) Hypertension Father Diabetes Prostate cancer Surgical History (Updated 08/19/22 @ 02:[address] Margarita Sneed MD) H/O heart artery stent History of abdominal surgery History of cholecystectomy History of hysterectomy S/P appendectomy S/P partial thyroidectomy Social History (Updated 08/19/22 @ 02:[address] Margarita Sneed MD) household members: none Smoking Status: Current every day smoker tobacco type: cigarettes Smoking packs per day: 0.5 Smoking cigarettes per day: 10.0 alcohol intake: never substance use type: does not use Vital Signs Vital Signs Vital Signs: 08/19/22 14:21 08/19/22 14:55 08/19/22 15:06 Temperature 98.0 F Temperature Source Oral Pulse Rate 87 81 79 Pulse Strength Respiratory Rate 16 16 14 Respiratory Effort Respiratory Depth Respiratory Pattern Blood Pressure 112/65 110/55 L 96/58 L Blood Pressure Mean 80 73 70 Blood Pressure Source Monitor Monitor Monitor Blood Pressure Position Semi-Fowlers Supine Supine Blood Pressure Location Right Arm Left Arm Left Arm Pulse Ox 97 95 94 Oxygen Delivery Method Room Air Room Air Room Air 08/19/22 15:20 08/19/22 15:35 08/19/22 15:51 Temperature Temperature Source Pulse Rate 79 81 81 Pulse Strength Respiratory Rate 14 14 14 Respiratory Effort Respiratory Depth Respiratory Pattern Blood Pressure 100/59 L 107/61 105/61 Blood Pressure Mean 72 76 75 Blood Pressure Source Monitor Monitor Monitor Blood Pressure Position Supine Supine Supine Blood Pressure Location Left Arm Left Arm Left Arm Pulse Ox 94 93 94 Oxygen Delivery Method Room Air Room Air Room Air 08/19/22 16:07 08/19/22 20:27 08/19/22 20:30 Temperature 97.9 F Temperature Source Oral Pulse Rate 83 78 Pulse Strength Normal (2+) Respiratory Rate 16 18 Respiratory Effort Respiratory Depth Respiratory Pattern Blood Pressure 107/57 L 105/67 Blood Pressure Mean 73 79 Blood Pressure Source Monitor Monitor Blood Pressure Position Supine Semi-Fowlers Blood Pressure Location Left Arm Left Arm Pulse Ox 91 98 Oxygen Delivery Method Room Air Room Air 08/19/22 20:30 08/20/22 03:00 08/20/22 03:00 Temperature 97.9 F Temperature Source Oral Pulse Rate 75 Pulse Strength Respiratory Rate 18 Respiratory Effort Normal Non-Labored Normal Non-Labored Respiratory Depth Normal Normal Respiratory Pattern Normal Normal Blood Pressure 125/77 H Blood Pressure Mean 93 Blood Pressure Source Monitor Blood Pressure Position Semi-Fowlers Blood Pressure Location Left Arm Pulse Ox 98 Oxygen Delivery Method Room Air Room Air Room Air 08/20/22 07:45 08/20/22 07:31 Temperature 97.9 F Temperature Source Oral Pulse Rate 69 Pulse Strength Respiratory Rate 16 Respiratory Effort Respiratory Depth Respiratory Pattern Blood Pressure 127/77 H Blood Pressure Mean 93 Blood Pressure Source Monitor Blood Pressure Position Semi-Fowlers Blood Pressure Location Left Arm Pulse Ox 96 96 Oxygen Delivery Method Room Air Room Air Weight Weight: 143 lb 4.807 oz Body Mass Index (BMI) 24.5 Physical Exam Const alert, oriented x3 and no apparent distress General Appearance: cooperative, comfortable and well kempt HEENT normocephalic and head/scalp atraumatic Eyes EOMs intact bilaterally and conjunctivae normal Neck full ROM General: normal visual inspection Chest inspection of chest normal and palpation of chest normal Resp normal respiratory effort and normal air movement Effort and Inspection: able to speak in complete sentences Cardio regular rate and peripheral pulses 2+ throughout GI soft to palpation, non-tender and non-distended Back/Spine thoraco-lumbar ROM normal Cervical Spine: cervical ROM normal Thoracic Spine / Upper Back: normal to inspection Lumbar Spine / Lower Back: normal to inspection Extremity normal to inspection, full ROM, normal capillary refill and no calf tenderness Skin no rashes or lesions noted General Skin Exam: no breakdown Neuro oriented x3, CN's II-XII intact bilaterally, moves all extremities, no focal motor deficits, no sensory deficits noted and deep tendon reflexes 2+ bilaterally Neuro Narrative: The patient does have resting tremors in the hands Motor Exam: strength 5/5 throughout and muscle tone normal throughout Lab / Micro Data Result Diagrams: 08/20/22 06:24 08/20/22 06:24 Labs: Laboratory Results - last 24 hr 08/20/22 06:24: WBC 8.5, RBC 4.01 L, Hgb 13.4, Hct 40.0, MCV 99.8 H, MCH 33.4 H, MCHC 33.5, RDW Std Deviation 45.8 H, RDW Coeff of Siri 12.3, Plt Count 323, MPV 9.1, Immature Gran % (Auto) 0.400, Neut % (Auto) 84.4 H, Lymph % (Auto) 11.3 L, [place] % (Auto) 3.5, Eos % (Auto) 0.0, Baso % (Auto) 0.4, Absolute Neuts (auto) 7.1, Absolute Lymphs (auto) 0.96, Nucleated RBC % 0 08/20/22 06:24: Sodium 137, Potassium 4.1, Chloride 108 H, Carbon Dioxide 25.0, Anion Gap 4 L, BUN 11, Creatinine 0.53 L, Estim Creat Clear Calc 106.00, Est GFR (MDRD) Af Amer 156, Est GFR (MDRD) Non-Af 129, BUN/Creatinine Ratio 20.8 H, Glucose 114 H, Calcium 8.7 Micro: Microbiology 08/18/22 19:31 Urine, Clean Catch Urine Culture - Final Mixed Gram Pos & Gram Neg Org Radiology Impression Cervical Spine MRI 08/19/22 05:55 IMPRESSION: Moderate narrowing bilateral neural foramina at C5-6 and C6-7 due to uncinate spondylosis Electronically Signed: Kavon Roland MD at 17:35 EST , Lumbar Spine MRI 08/19/22 05:55 IMPRESSION: 1. Disc bulge crowds the traversing L5 nerve roots in the lateral recesses at L4-5. There is also mild right neural foraminal stenosis. 2. Multiple perineural cysts detailed above. 3. Mild paraspinous muscle fatty infiltration. Electronically Signed: Robert Linder MD at 17:18 EST , Thoracic Spine MRI 08/19/22 05:55 IMPRESSION: A few small perineural cysts. No spinal canal or neural foraminal stenosis. Normal appearance of the cord. Electronically Signed: Robert Linder MD at 16:49 EST , Assessment & Plan Assessment/Plan (1) Acute neck pain: (2) Back pain: PLAN: Plan I had a lengthy discussion with the patient. I reviewed the results of her imaging with her. Cervical spine MRI dated 08/19/2022 shows mild degenerative changes without any significant areas of stenosis. Thoracic MRI dated 08/19/2022 shows mild degenerative changes without any significant areas of stenosis. Lumbar MRI dated 08/19/2022 shows mild degenerative changes without any significant areas of stenosis. Therefore I cannot account for her current complaints based off any structural issue that can be found on her cervical, thoracic, or lumbar MRI. I do not recommend any surgery and I do not recommend any injections at this time from a spine surgery point of view. I recommend pain control and activity as tolerated.
[2022-08-20] MEDS: Ondansetron 4 MG/2 ML Vial IV (14:29)
--- NOTE | 2022-08-20 14:45 | CASEMGMT ---
Social Work Pt has completed Medicaid application. SW faxed to [facility] and provided pt with instructions on following up with S to process application. Pt agreeable. BRETT Marquis
[2022-08-20 15:02] VITALS: BP 142/82; PULSE 77; RESP 16; TEMP 36.9; O2SAT 100
--- NOTE | 2022-08-20 16:23 | DCINST_ITS ---
Discharge Instructions Diet Discharge Diet: No restrictions Activity Discharge Activity: Return to Normal Activity Follow Up Care Test Results: Test results from this visit will be discussed in further detail at your follow- up appointment, if applicable. Discharge Plan Admission Admit Date/Time: 08/18/22 21:29 Primary Reason for Your Visit: Neck and back pain as well as episode of incontinence Attending Provider: Winsome Colon Primary Care Provider: Care Physician,No Primary Consulting Providers: Margarita Sneed ; Dorian Lunsford Instructions Patient Instructions: Active Neck Rotation Additional Instructions / Restrictions: *Please take this with you to your next doctors appointment* ?Prescription for lidocaine patches will be sent to your pharmacy as well several days of Lyrica, Zanaflex as needed, and a Medrol Dosepak. Please take these as prescribed. You can also take 650 mg of Tylenol every 6 hours as needed. You will need to contact your primary care physician for further management, work-up, and treatment of your pain-if you do not have a primary ca re physician we can provide you with a list of local physicians to establish. -These will be sent to your preferred pharmacy on file ?Please continue all other home meds ?Please continue to follow with your manager architectural and deli/bakery associate on discharge. -Please call your primary care provider's office upon discharge to schedule a hospital follow up within 1 week. -For any concerning signs or symptoms please call 911 or proceed to the nearest emergency department Discharge Orders/Prescriptions Prescriptions: New tizanidine 2 mg Tablet 2 mg PO Q8H PRN PRN (Reason: muscle strain, spasms) 3 Days Qty: 9 0RF pregabalin 25 mg Capsule 25 mg PO TID 4 Days Qty: 12 0RF methylprednisolone [Medrol (Darrel)] 4 mg tablets,dose pack 4 mg PO 0800,1200,1700 Qty: 21 0RF lidocaine 5 % Adhesive Patch,Medicated 2 patch topical DAILY 14 Days Qty: 28 0RF Protocol: *Topical Application Instructions APPLICATION INSTRUCTIONS: upper back/neck Continued levothyroxine 100 MCG tablet 100 mcg PO DAILY cyanocobalamin (vitamin B-12) 1,000 MCG tablet, sublingual 500 mcg PO DAILY multivitamin with folic acid [Thera] 1 TABLET tablet 1 tab PO DAILY B-complex with vitamin C 1 EACH tablet 1 ea PO DAILY isosorbide mononitrate 30 mg tablet extended release 24 hr 30 mg PO DAILY Label Comments: TAKE 1 TABLET BY MOUTH ONCE DAILY zinc acetate 50 mg (zinc) Capsule 50 mg PO DAILY potassium chloride 20 mEq tablet,ER particles/crystals 20 meq PO DAILY Label Comments: TAKE 1 TABLET BY MOUTH ONCE DAILY calcium carbonate 500 mg calcium (1,250 mg) Tablet 500 mg PO DAILY ferrous sulfate 324 mg (65 mg iron) Tablet,Delayed Release (Dr/Ec) 324 mg PO DAILY Referrals / Follow Up: Care Physician,No Primary [Primary Care Provider] - Disposition Disposition (needs filled in before D/C Order can be placed): Home, Self Care
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
--- NOTE | 2022-08-21 07:46 | CASEMGMT ---
Social Work Late entry: Pt was seen 08/19/22. SW provided medicaid application and informed pt to complete and give to nurse, who will return to SW on the floor. Pt voiced understanding. BRETT Pearson
== END 2022-08-20 17:15 | disposition home or self-care (01) ==
LOC: ED 20:50 → MS3 21:46
PROVIDERS: Admitting Provider Family Medicine; Emergency Provider Emergency Medicine; Visit Provider Internal Medicine
DX: M47.812 Spondylosis without myelopathy or radiculopathy, cervical region (principal); K50.90 Crohn's disease, unspecified, without complications; M54.50 Low back pain, unspecified; E78.5 Hyperlipidemia, unspecified; D50.9 Iron deficiency anemia, unspecified; I10 Essential (primary) hypertension; M54.6 Pain in thoracic spine; R32 Unspecified urinary incontinence; R53.1 Weakness; I25.10 Atherosclerotic heart disease of native coronary artery without angina pectoris; F17.210 Nicotine dependence, cigarettes, uncomplicated; Z79.899 Other long term (current) drug therapy; E03.9 Hypothyroidism, unspecified; Z79.890 Hormone replacement therapy; E87.6 Hypokalemia
CPT/HCPCS: 36415; 71275; 72125; 72141; 72146; 72148; 74177; 80048; 80053; 81001; 83605; 83735; 84484; 85025; 87086; 87088; 93005; 96361; 96372; 96374; 96375; 96376; 99218; 99285; J7030; Q9967; A4216; G0378; J2405

== ENCOUNTER 2022-12-04 19:12 | Emergency (ER) | payer SELFPAY ==
[2022-12-04 19:13] VITALS: BP 115/81; PULSE 101; RESP 18; TEMP 37.1; O2SAT 98; BMI 25.5
--- NOTE | 2022-12-04 19:20 | EKG12_ITS ---
Test Reason : PALPATATIONS Blood Pressure : / mmHG Vent. Rate : 094 BPM Atrial Rate : 094 BPM P-R Int : 126 ms QRS Dur : 070 ms QT Int : 366 ms P-R-T Axes : 056 068 062 degrees QTc Int : 457 ms Normal sinus rhythm Normal ECG Confirmed by ADITYA CAT ([id number]), script editor ROHAN HOLDER ([id number]) on 12/08/2022 7:53:15 AM Referred By: Confirmed By:ADITYA CAT
--- NOTE | 2022-12-04 19:24 | EDS_ITS ---
HPI History of Present Illness Chief Complaint: Wound Narrative Narrative: 52-year-old female here with concern for left leg wound palpitations and fever. Patient states. PFSH PFSH Medical History Anxiety CAD (coronary artery disease) Colitis Crohn disease Fibromyalgia HLD (hyperlipidemia) HTN (hypertension) Hypokalemia IBS (irritable bowel syndrome) Mitral valve prolapse Palpitation RSD (reflex sympathetic dystrophy) Tobacco use Home Medications cyanocobalamin (vitamin B-12) 1,000 mcg sublingual tablet 500 mcg PO DAILY supplement 07/21/18 [History Last Taken 08/17/22] levothyroxine 100 mcg tablet 100 mcg PO DAILY 07/21/18 [History Last Taken 08/18/22] multivitamin with folic acid 400 mcg tablet (Thera) 1 tab PO DAILY supplement 07/21/18 [History Last Taken 08/18/22] ferrous sulfate 324 mg (65 mg iron) tablet,delayed release 324 mg PO MOTH supplement 08/18/22 [History Last Taken 08/18/22] isosorbide mononitrate 30 mg tablet,extended release 24 hr 30 mg PO DAILY 08/18/22 [History Last Taken 08/17/22] potassium chloride 20 mEq tablet,extended release(part/cryst) 20 meq PO DAILY supplement 08/18/22 [History Last Taken Unknown] zinc acetate 50 mg (zinc) capsule 50 mg PO DAILY supplement 08/18/22 [History Last Taken 08/18/22] prednisone 50 mg tablet 50 mg PO DAILY 5 days #5 tabs 12/04/22 [Rx Last Taken Unknown] sulfamethoxazole 800 mg-trimethoprim 160 mg tablet (Bactrim DS) 1 tab PO BID 7 days #14 tabs 12/04/22 [Rx Last Taken Unknown] Allergy/AdvReac Type Severity Reaction Status Date / Time doxycycline Allergy Other Verified 12/04/22 19:13 erythromycin base Allergy Hives Verified 12/04/22 19:13 [From Erythrocin] metronidazole [From Flagyl] Allergy Other Verified 12/04/22 19:13 nitrofurantoin AdvReac Diarrhea Verified 12/04/22 19:13 [From Macrobid] Family History (Updated 08/19/22 @ 02:[address] Margarita Sneed MD) Mother CVA (cerebral vascular accident) Hypertension Father Diabetes Prostate cancer Surgical History (Updated 08/19/22 @ 02:[address] Margarita Sneed MD) H/O heart artery stent History of abdominal surgery History of cholecystectomy History of hysterectomy S/P appendectomy S/P partial thyroidectomy Social History (Updated 08/19/22 @ 02:[address] Margarita Sneed MD) household members: none Smoking Status: Current every day smoker tobacco type: cigarettes alcohol intake: never substance use type: does not use ROS ROS ED ROS Narrative Constitutional: Endorses fever HEENT: Denies sore throat Neck: Denies neck pain Cardiovascular: Denies chest pain, syncope, endorses palpitation Respiratory: Denies shortness of breath GI: Denies nausea vomiting or abdominal pain : Denies changes in urinary habits Musculoskeletal: Denies muscle or joint pain Neurologic: Denies numbness or loss of sensation, endorses weakness Skin endorses wound EXAM Physical Exam Narrative Exam Narrative: Nursing triage notes reviewed, Vital signs reviewed Constitutional: please see mdm HENT: MMM Eyes: Pupils equal round and reactive to light, Extraocular muscles intact Neck: No stridor, no JVD, full neck ROM Lungs: Clear to auscultation, No wheezing or rales. No increased work of breathing, no conversational dyspnea, no accessory muscle use, no nasal flaring. No respiratory distress noted Heart: Regular rate and rhythm, No murmurs, No rubs and No gallops, 2+ distal pulses (radial, femoral, posterior tibial) in all extremities Abdomen: Soft, there is no tenderness, rigidity, rebound or guarding, no obvious peritoneal signs, no palpable pulsatile abdominal masses, no auscultated abdominal bruit : No CVAT,, some redness, erythema over the left groin, no labial or vaginal involvement. No perineal involvement, no crepitus or bullae noted in the perineum, no pain on proportion to exam. Extremities: No edema Neuro: No focal neurological deficits, cranial nerves II through XII intact, 5/5 strength in all extremities. Intact sensation to light touch in all extremities, 2+ reflexes bilateral patella dens. Normal gait. No ataxia. Skin: No rash or lesions noted Const Vital Signs: 12/04/22 19:13 Temperature 98.8 F Temperature Source Temporal Pulse Rate 101 H Respiratory Rate 18 Blood Pressure 115/81 H Blood Pressure Mean 92 Pulse Ox 98 Oxygen Delivery Method Room Air MDM MDM MDM Narrative Medical decision making narrative: Chief Complaint: Wound infection External records reviewed: No recent imaging of the involved extremity I considered the following differential diagnosis: Fistula, Crohn's flare, intra-abdominal infection, Zo's gangrene Exam without evidence of perineal TTP, crepitus to suggest Zo's gangrene. I obtained labs images to rule out intra-abdominal infections, signs of sepsis or severe systemic inflammation. EKG, troponin not evidence of myocardial ischemia or arrhythmia. Labs are reassuring with a negative lactate without leukocytosis. Labs without evidence of anion gap, pancreatitis. CT scan showed evidence of Crohn's colitis. I will give the patient a short burst of prednisone. There were some redness and overlying skin changes in the left groin we will give Bactrim to cover for cellulitis. Will give GI and PCP follow-up. Factors affecting care: CAD that is post stent, Crohn's disease, hyperlipidemia, hypertension, IBS Social determinants of health: History obtained from others: Shared decision making: I will have a discussion with the patient and or visitors regarding risk/benefits of further testing or admission. They will be made aware of of the risk/benefits inherent in this decision they will be given the opportunity to voice understanding. Consults: None Lab Data Attestation: I reviewed the patient's lab results. Lab results narrative: CBC without leukocytosis, anemia or thrombocytopenia BMP without evidence of significant electrolyte abnormalities, no anion gap, no acute kidney injury. Lactate is wnl indicating no end-organ hypoperfusion and/or hypoxia. LFTs show no evidence of hepatobiliary pathology. Lipase is wnl indicating no pancreatic inflammation. Troponin is negative, no evidence of myocardial ischemia Labs: Laboratory Results - last 24 hr 12/04/22 12/04/22 12/04/22 20:35 20:35 20:35 WBC 9.4 RBC 3.75 L Hgb 12.4 Hct 37.1 MCV 98.9 MCH 33.1 H MCHC 33.4 RDW Std Deviation 46.2 H RDW Coeff of Siri 12.7 Plt Count 359 MPV 9.0 Immature Gran % (Auto) 0.200 Neut % (Auto) 63.9 Lymph % (Auto) 24.3 [place] % (Auto) 8.6 Eos % (Auto) 2.5 Baso % (Auto) 0.5 Absolute Neuts (auto) 6.0 Absolute Lymphs (auto) 2.27 Nucleated RBC % 0 Sodium 139 Potassium 3.6 Chloride 109 H Carbon Dioxide 24.0 Anion Gap 6 BUN 13 Creatinine 0.77 Estim Creat Clear Calc 72.96 Est GFR (MDRD) Af Amer 100 Est GFR (MDRD) Non-Af 83 BUN/Creatinine Ratio 16.8 Glucose 99 Lactic Acid 1.5 Calcium 8.7 Total Bilirubin 0.20 AST 19 ALT 24 Alkaline Phosphatase 103 Troponin I High Sens 5 Total Protein 7.3 Albumin 3.1 L Globulin 4.2 Albumin/Globulin Ratio 0.7 L Lipase 49 Radiography Diagnostic Testing: Clinical Impression(s) from Imaging Studies Abdomen/Pelvis CT 12/04/22 19:54 IMPRESSION: 1. Abnormal appearance of terminal ileum with wall thickening, wall enhancement, and mild adjacent soft tissue stranding consistent with history of Crohn''s. 2. No guillaume bowel obstruction abscess free fluid or free air. 3. No evidence cholelithiasis. 4. Status post cholecystectomy. 5. Incidental note of a small benign cyst in the RIGHT hepatic lobe. Electronically Signed: Guanaco Davis MD at 21:57 EDT , Discharge Plan Triage Chief Complaint: Wound Other Complaint: Dizziness Fever Palpitations ED Provider: Arturo Mccallum Dx/Rx/DC Orders Clinical Impression: Crohn's colitis, Cellulitis Instructions: Crohns Disease Dc Prescriptions: New prednisone 50 mg tablet 50 mg PO DAILY 5 Days Qty: 5 0RF sulfamethoxazole-trimethoprim [Bactrim DS] 800-160 mg tablet 1 tab PO BID 7 Days Qty: 14 0RF No Action levothyroxine 100 MCG tablet 100 mcg PO DAILY cyanocobalamin (vitamin B-12) 1,000 MCG tablet, sublingual 500 mcg PO DAILY multivitamin with folic acid [Thera] 1 TABLET tablet 1 tab PO DAILY isosorbide mononitrate 30 mg tablet extended release 24 hr 30 mg PO DAILY Label Comments: TAKE 1 TABLET BY MOUTH ONCE DAILY zinc acetate 50 mg (zinc) Capsule 50 mg PO DAILY potassium chloride 20 mEq tablet,ER particles/crystals 20 meq PO DAILY Label Comments: TAKE 1 TABLET BY MOUTH ONCE DAILY ferrous sulfate 324 mg (65 mg iron) Tablet,Delayed Release (Dr/Ec) 324 mg PO MOTH Primary Care Provider: Gabe Robison Referrals: Care Physician,No Primary [Non-Staff] - Activity Restrictions/Additional Instructions: Thank you for trusting us with your care today! Please take antibiotics of course complete. Please complete all steroids. Please follow with the a Wafer Polishing Worker of your choice. Please take Tylenol (2 pills, 650 mg), ibuprofen (2 pills, 400 mg) every 6 hours as needed for pain and fever control. Please return to the emergency department if your symptoms change or worsen. Please follow with your primary care physician for further outpatient evaluation and management. Disposition Disposition: Home, Self Care
--- NOTE | 2022-12-04 19:54 | CT_ITS ---
INDICATION: lower abdominal pain hx of Crohn''s EXAMINATION: CT ABDOMEN AND PELVIS with CONTRAST - CT Abdomen And Pelvis W/ Contrast Injection TECHNIQUE: Multiple axial images were obtained of the abdomen and pelvis following administration of IV contrast. Planar reconstructions obtained. A radiation dose optimization technique was used for this scan. RADIATION DOSAGE (If Supplied By Facility): CTDIvol = ( 12.48 ) mGy, DLP = ( 584.90 ) mGycm IV Contrast dosage and agent: 100 mL Isovue-370 Oral contrast: None. Radiation Dose (provided by facility) CTDIvol (12.48 ) mGy, DLP ( 584.90) mGy-cm COMPARISON: 08/18/2022 FINDINGS: LOWER THORAX: Lungs are clear. Cardiac contour is normal, no pericardial effusion. No coronary vascular calcifications noted. HEPATOBILIARY: Liver: Liver is normal configuration. There is a small subcapsular cyst in the RIGHT hepatic lobe measuring approximately 10 mm in size. No other intrahepatic lesions noted.. Gallbladder: Surgically absent. Pancreas: Pancreas is normal size configuration and density. No mass is noted. Spleen: The spleen is homogeneous and normal in size. . BOWEL: Stomach: The stomach is normal in size configuration, no evidence of focal masses, abnormal calcifications. No hiatal hernia noted. Bowel: Large small bowel loops have normal configuration. There are anastomotic sutures in the right-sided colon, there is diffuse circumferential thickening of the terminal ileum consistent with history of Crohn''s. No guillaume bowel obstruction. Mild adjacent soft tissue stranding without evidence of fluid or abscess. Appendix: Not adequately visualized.: GENITOURINARY: Adrenals: Both adrenal glands are normal in size. Kidneys: Kidneys appear symmetric in size. No calcifications are seen in the collecting system. There is no hydronephrosis or surrounding fluid. Bladder: Normal Pelvic organs: The visualized pelvic organs are normal in size and configuration. No masses or adenopathy noted. RETROPERITONEUM: Diffuse aortic calcifications are present without aneurysmal dilatation. LYMPH NODES: No evidence of retroperitoneal or para-aortic masses fluid collections or adenopathy. PERITONEAL CAVITY: No ascites noted ANTERIOR ABDOMINAL WALL: Normal, no hernia identified. BONES AND SOFT TISSUES: No acute bony changes. Mild spondylosis with disc space narrowing and vacuum phenomenon at C4-5. No acute disc herniations or canal stenosis. Remaining bony elements are normal OTHER: None CT/Abdomen/Pelvis W IV Cont ONLY IMPRESSION: 1. Abnormal appearance of terminal ileum with wall thickening, wall enhancement, and mild adjacent soft tissue stranding consistent with history of Crohn''s. 2. No guillaume bowel obstruction abscess free fluid or free air. 3. No evidence cholelithiasis. 4. Status post cholecystectomy. 5. Incidental note of a small benign cyst in the RIGHT hepatic lobe. Electronically Signed: Guanaco Davis MD at 21:57 EDT ,
[2022-12-04 20:49] LABS: Absolute Lymphocyte Count 2.27 X10^3/uL (0.83-4.51); Basophil# 0.05 X10^3/uL; Basophil% 0.5 % (0-1); Eosinophil# 0.23 X10^3/uL; Eosinophils% 2.5 % (0-5); Hematocrit 37.1 % (37-47); Hemoglobin 12.4 g/dL (12.0-15.0); Lymphocyte # 2.27 X10^3/ul (0.83-4.51); Lymphocyte % 24.3 % (19-41); Mean Corp Hgb Conc 33.4 g/dL (32-36); Mean Corpuscular Hgb 33.1 pg (27.0-32.0); Mean Corpuscular Volume 98.9 fL (81-99); Monocyte% 8.6 % (0-10); NRBC Flagged by Analyzer 0 % (0-5); Neutrophil # 5.98 X10^3/uL (2.7-7.7); Neutrophil % 63.9 % (47-70); Platelet Count 359 K/mm3 (150-450); RBC Distribution Width CV 12.7 % (11.6-14.6); RBC Distribution Width SD 46.2 fl (35.1-43.9); Red Blood Count 3.75 M/mm3 (4.2-5.4); White Blood Count 9.4 K/mm3 (4.4-11.0)
[2022-12-04] MEDS: Morphine 4 MG/ML Syringe IV (20:58)
[2022-12-04] MEDS: 0.9% Normal Saline 1,000 ML 1000 ML IV (20:58)
[2022-12-04] MEDS: Ondansetron 4 MG/2 ML Vial IV (20:58)
[2022-12-04 21:09] LABS: ALB/GLOB Ratio 0.7 RATIO (0.9-2.4); AST(SGOT) 19 U/L (15-37); Alanine Aminotransfer ALT/SGPT 24 U/L (13-56); Albumin, Serum 3.1 g/dL (3.2-5.0); Alkaline Phosphatase 103 U/L (45-117); Anion Gap 6 (5-15); BUN 13 mg/dL (7-18); BUN/Creat Ratio 16.8 RATIO (10-20); Calcium,Total 8.7 mg/dL (8.5-10.1); Chloride 109 mmol/L (98-107); Creatinine, Serum 0.77 mg/dL (0.55-1.02); EST Glomerular Filtration Rate 83 mL/min (>60); Est Glom Filt Rate - Afr Amer 100 mL/min (>60); Estimated Creatinine Clearance 72.96 ml/min; Globulin 4.2 g/dL (2.2-4.2); Glucose 99 mg/dL (74-106); Lipase 49 U/L (13-75); Potassium 3.6 mmol/L (3.5-5.1); Protein, Total 7.3 g/dL (6.4-8.2); Sodium Level 139 mmol/L (136-145); Troponin-I HS 5 pg/mL (3.0-54.0)
[2022-12-04 21:12] LABS: Lactic Acid 1.5 mmol/L (0.4-1.9)
[2022-12-04] MEDS: predniSONE 20 MG Tablet 40 MG PO (22:51)
[2022-12-04] MEDS: Smz/Tmp Ds Tablet 1 TABLET PO (22:55)
== END 2022-12-04 22:59 | disposition home or self-care (01) ==
PROVIDERS: Emergency Provider Emergency Medicine; PCP Family Medicine; Visit Provider Emergency Medicine
DX: L03.90 Cellulitis, unspecified (principal); K50.90 Crohn's disease, unspecified, without complications; I10 Essential (primary) hypertension; I25.10 Atherosclerotic heart disease of native coronary artery without angina pectoris; R42 Dizziness and giddiness; R50.9 Fever, unspecified; R00.2 Palpitations; Z79.899 Other long term (current) drug therapy; F17.210 Nicotine dependence, cigarettes, uncomplicated; Z90.49 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other specified parts of digestive tract; Z90.710 Acquired absence of both cervix and uterus; Z95.5 Presence of coronary angioplasty implant and graft; E78.5 Hyperlipidemia, unspecified
CPT/HCPCS: 74177; 80053; 83605; 83690; 84484; 85025; 93005; 99285; J7030; Q9967; A4216; J2405

== ENCOUNTER 2023-03-08 19:41 | Emergency (ER) | payer SELFPAY ==
[2023-03-08 19:41] VITALS: BP 135/77; PULSE 96; RESP 16; TEMP 36.7; O2SAT 99; BMI 25.9
[2023-03-08 19:52] VITALS: BP 135/77; PULSE 96; RESP 16; TEMP 36.6; O2SAT 99
[2023-03-08] MEDS: Morphine 2 MG/ML Syringe IV (20:31)
[2023-03-08] MEDS: Ondansetron 4 MG/2 ML Vial IV (20:31)
[2023-03-08] MEDS: Dicyclomine 20 MG/2 ML Vial IM (20:32)
[2023-03-08 20:51] LABS: Absolute Lymphocyte Count 1.73 X10^3/uL (0.83-4.51); Absolute Neutrophil Count 6.8 X10^3/uL (2.0-7.7); Basophil# 0.07 X10^3/uL; Basophil% 0.7 % (0-1); Eosinophil# 0.17 X10^3/uL; Eosinophils% 1.8 % (0-5); Hematocrit 36.1 % (37-47); Lymphocyte # 1.73 X10^3/ul (0.83-4.51); Lymphocyte % 18.2 % (19-41); Mean Corp Hgb Conc 33.2 g/dL (32-36); Mean Corpuscular Hgb 33.4 pg (27.0-32.0); Mean Corpuscular Volume 100.6 fL (81-99); Mean Platelet Vol. 9.1 fl (6.2-12.0); Monocyte# 0.71 X10^3/uL; Monocyte% 7.5 % (0-10); NRBC Flagged by Analyzer 0 % (0-5); Neutrophil # 6.81 X10^3/uL (2.7-7.7); Neutrophil % 71.4 % (47-70); Platelet Count 337 K/mm3 (150-450); RBC Distribution Width SD 48.2 fl (35.1-43.9); Red Blood Count 3.59 M/mm3 (4.2-5.4); White Blood Count 9.5 K/mm3 (4.4-11.0)
--- NOTE | 2023-03-08 21:00 | RAD_ITS ---
STUDY: X-RAY - ACUTE ABDOMINAL SERIES REASON FOR EXAM: Female, 52 years old. Pain TECHNIQUE: Single view of the chest. Supine, and erect view(s) of the abdomen were obtained. COMPARISON: None. FINDINGS: The lungs are clear and expanded. Normal size heart. Normal mediastinum and vania. Normal visualized pulmonary arteries. Normal visualized aortic arch and descending thoracic aorta. There is a non-specific bowel gas pattern. The soft tissue structures of the abdomen and pelvis are unremarkable. Normal visualized osseous structures. RAD/Acute Abdomen Inc Chest IMPRESSION: Normal x-ray examination of the chest, abdomen, and pelvis. Electronically Signed: Guanaco Barnhart MD at 21:36 EDT ,
[2023-03-08 21:03] LABS: Anion Gap 4 (5-15); BUN 12 mg/dL (7-18); BUN/Creat Ratio 17.4 RATIO (10-20); Calcium,Total 8.4 mg/dL (8.5-10.1); Chloride 115 mmol/L (98-107); Creatinine, Serum 0.69 mg/dL (0.55-1.02); EST Glomerular Filtration Rate 94 mL/min (>60); Est Glom Filt Rate - Afr Amer 114 mL/min (>60); Estimated Creatinine Clearance 81.42 ml/min; Glucose 102 mg/dL (74-106); Potassium 2.9 mmol/L (3.5-5.1); Sodium Level 141 mmol/L (136-145)
[2023-03-08 21:25] VITALS: BP 109/51; PULSE 66; RESP 16; TEMP 36.6; O2SAT 98
--- NOTE | 2023-03-08 22:11 | EDS_ITS ---
HPI HPI - GI History of Present Illness Chief Complaint: Abd Pain Detail of Chief Complaint: Diffuse abdominal pain with nausea and diarrhea Informant: patient and spouse/S.O. Abdominal Pain/Flank Pain Onset: Days Context: Sudden Onset Timing: Continuous and Waxes and wanes Quality: Aching and Cramping Location: Diffuse Current Severity: Moderate Maximum Severity: Severe Worsened by: Food Relieved by: Nothing Nausea/Vomiting/Emesis GI Symptom: Positive for Nausea; Negative for Vomiting Diarrhea/Melena/Hematochezia GI Symptom: Positive for Diarrhea; Negative for Melena or Hematochezia Onset: Days (Patient has history of Crohn's disease. Patient had recent CAT scan of the abdomen and pelvis which revealed an 8 cm segment of the small bowel to be thickened and narrowed. There is no evidence of obstruction. Furthermore patient had a cyst right lobe of the liver.) Stool Quality: Positive for Loose and Watery; Negative for Mucous, Black, Maroon or BRB per rectum Associated Symptoms Associated Symptoms: Negative for Dysuria, Frequency, Hematuria or Urgency Narrative Narrative: Patient is a 52-year-old woman who was told to come to the emergency department by her PCP. She denies fever, chills night sweats. She had a CAT scan on March 02. Results revealed an 8 cm section mid small bowel that was narrowed and thickened. There is no fat stranding. There also was a cyst noted right lobe of the liver. This was inconsequential. Patient presents with nausea, pain and persistent diarrhea. Patient presently is on no medicine for her Crohn's. She was on Humira. She had an urgent first reaction and this was discontinued. She does complain of rectal pain. Of note there was significant amount of stool noted on the CAT scan reported by the radiologist at outside facility. Patient denies fever, chills night sweats. Patient denies headache, visual, ocular auditory symptoms. Patient denies respiratory or cardiac symptoms. Patient denies urologic symptoms. Prior similar symptoms: Yes Recent Illness/Hospitalization: No PFSH PFSH Medical History Anxiety CAD (coronary artery disease) Colitis Crohn disease Fibromyalgia HLD (hyperlipidemia) HTN (hypertension) Hypokalemia IBS (irritable bowel syndrome) Mass of multiple sites of liver Mitral valve prolapse Palpitation RSD (reflex sympathetic dystrophy) Tobacco use Home Medications cyanocobalamin (vitamin B-12) 1,000 mcg sublingual tablet 500 mcg PO DAILY supplement 07/21/18 [History Last Taken 08/17/22] levothyroxine 100 mcg tablet 100 mcg PO DAILY 07/21/18 [History Last Taken 08/18/22] multivitamin with folic acid 400 mcg tablet (Thera) 1 tab PO DAILY supplement 07/21/18 [History Last Taken 08/18/22] ferrous sulfate 324 mg (65 mg iron) tablet,delayed release 324 mg PO MOTH supplement 08/18/22 [History Last Taken 08/18/22] isosorbide mononitrate 30 mg tablet,extended release 24 hr 30 mg PO DAILY 08/18/22 [History Last Taken 08/17/22] potassium chloride 20 mEq tablet,extended release(part/cryst) 20 meq PO DAILY supplement 08/18/22 [History Last Taken Unknown] zinc acetate 50 mg (zinc) capsule 50 mg PO DAILY supplement 08/18/22 [History Last Taken 08/18/22] prednisone 50 mg tablet 50 mg PO DAILY 5 days #5 tabs 12/04/22 [Rx Last Taken Unknown] sulfamethoxazole 800 mg-trimethoprim 160 mg tablet (Bactrim DS) 1 tab PO BID 7 days #14 tabs 12/04/22 [Rx Last Taken Unknown] dicyclomine 10 mg capsule 20 mg (2 x 10 mg) PO TIDAC #20 CAPSULES 03/08/23 [Rx Last Taken Unknown] ondansetron 4 mg disintegrating tablet 4 mg PO Q8H PRN PRN Nausea #10 tabs 03/08/23 [Rx Last Taken Unknown] potassium chloride 20 mEq oral packet 20 meq PO BID #30 ea 03/08/23 [Rx Last Taken Unknown] potassium chloride 40 mEq/15 mL oral liquid 20 meq (7.5 mL) PO DAILY #473 mL 03/08/23 [Rx Last Taken Unknown] Allergy/AdvReac Type Severity Reaction Status Date / Time doxycycline Allergy Other Verified 12/04/22 19:13 erythromycin base Allergy Hives Verified 12/04/22 19:13 [From Erythrocin] metronidazole [From Flagyl] Allergy Other Verified 12/04/22 19:13 nitrofurantoin AdvReac Diarrhea Verified 12/04/22 19:13 [From Macrobid] Family History Mother CVA (cerebral vascular accident) Hypertension Father Diabetes Prostate cancer Surgical History H/O heart artery stent History of abdominal surgery History of cholecystectomy History of hysterectomy S/P appendectomy S/P partial thyroidectomy Social History (Updated 03/08/23 @ 22:[address] Connor Thomas MD) household members: spouse Smoking Status: Current every day smoker tobacco type: cigarettes alcohol intake: never substance use type: does not use ROS ROS ED Constitutional Constitutional ED: Denies chills, fever(s), subjective, sweats or weight loss ENT ENT ED: Denies ear pain, rhinorrhea or sore throat Cardiovascular Cardiovascular: Denies chest pain, orthopnea, palpitations, paroxysmal nocturnal dyspnea or racing heartbeat Respiratory/Chest Respiratory/Chest: Denies cough, dyspnea, dyspnea on exertion, orthopnea or paroxysmal nocturnal dyspnea Gastrointestinal Gastrointestinal: Reports abdominal pain, diarrhea and nausea; Denies constipation, melena or vomiting Genitourinary Genitourinary ED: Denies dysuria, hematuria or urinary frequency Musculoskeletal Musculoskeletal: Denies arthralgias, back pain or neck pain Integumentary Denies rash Neurologic Neurologic: Denies headache(s), paresthesias or weakness Psychiatric Psychiatric: Reports anxiety Endocrine Endocrinology: Denies polydipsia, polyphagia or polyuria Hematologic/Lymphatic Hematologic/Lymphatic: Denies easy bleeding or easy bruising EXAM Physical Exam Const Vital Signs: 03/08/23 19:41 03/08/23 19:52 03/08/23 21:25 Temperature 98.0 F 98 F 97.8 F Temperature Source Temporal Temporal Oral Pulse Rate 96 96 66 Respiratory Rate 16 16 16 Blood Pressure 135/77 H 135/77 H 109/51 L Blood Pressure Mean 96 96 70 Pulse Ox 99 99 98 Oxygen Delivery Method Room Air Room Air Positive well nourished and well developed Constitutional Narrative: Patient is tearful. Patient appears uncomfortable. General Appearance ED: well developed; Negative for NAD or pallor HEENT Reports TM's clear and dry mucous membranes normocephalic and atraumatic Tympanic Membrane ED: Yes TM's clear Mouth ED: Yes dry mucous membranes Mouth: dry mucous membranes Eyes PERRL and EOMs intact bilaterally General Eye ED: Negative for pale conjunctiva or scleral icterus Neck no lymphadenopathy, supple and no JVD Resp normal respiratory effort and clear to auscultation bilaterally Cardio regular rate, regular rhythm, S1 normal heart sound, S2 normal heart sound and no murmurs GI no masses; Negative for non-tender or non-distended Inspection: abdominal distention Auscultation: hyperactive bowel sounds Palpation: soft and tender other (Diffuse); Negative for guarding, rigid, hepatomegaly, splenomegaly, hernia, mass, pulsatile mass or rebound tenderness present Back/Spine no CVA tenderness Extremity full ROM General Extremety ED: Negative for edema General Extremity: Negative for edema Neuro No CN's II-XII intact bilaterally, moves all extremities and no sensory deficits noted Sensorium / Orientation: alert Psych Mood & Affect: tearful Skin no wounds General Skin Exam: Negative for jaundice or pallor Lesions: no lesions Rashes: no rashes MDM MDM MDM Narrative Medical decision making narrative: Records from outside facility were reviewed. Based on patient's history and physical exam will obtain abdominal series to assess if there is any evidence of partial small bowel obstruction. This is unlikely with her having diarrhea. Rectal exam reveals fistula. There is no fissures or active bleeding. She does have remanence of hemorrhoids noted. There is no stenosis. She has significant pain on digital exam. There was no blood noted. Stool is a light brown color. CBC was obtained assess H&H as well as differential white count. BMP to assess for hypokalemia since she has a history of this. She is on potassium tablets however they are not wax matrix and her potassium may be low because she has had diarrhea recently. Lab Data Labs: Laboratory Results - last 24 hr 03/08/23 20:44 WBC 9.5 RBC 3.59 L Hgb 12.0 Hct 36.1 L MCV 100.6 H MCH 33.4 H MCHC 33.2 RDW Std Deviation 48.2 H RDW Coeff of Siri 13.0 Plt Count 337 MPV 9.1 Immature Gran % (Auto) 0.400 Neut % (Auto) 71.4 H Lymph % (Auto) 18.2 L [place] % (Auto) 7.5 Eos % (Auto) 1.8 Baso % (Auto) 0.7 Absolute Neuts (auto) 6.8 Absolute Lymphs (auto) 1.73 Nucleated RBC % 0 Sodium 141 Potassium 2.9 L Chloride 115 H Carbon Dioxide 22.0 Anion Gap 4 L BUN 12 Creatinine 0.69 Estim Creat Clear Calc 81.42 Est GFR (MDRD) Af Amer 114 Est GFR (MDRD) Non-Af 94 BUN/Creatinine Ratio 17.4 Glucose 102 Calcium 8.4 L Radiography Chest X-Ray - ED: Read by ED Physician (Three-view x-ray of the abdomen was obtained which reveals a normal chest portion i.e. cardiac silhouette and size normal. Lung parenchyma normal. No evidence of effusion. Perihilar region normal. Osseous structures are normal. Abdominal. Shunt reveals increased nonspecific bowel gas pattern w) Diagnostic Testing: Clinical Impression(s) from Imaging Studies Acute Abdomen Series 03/08/23 21:00 IMPRESSION: Normal x-ray examination of the chest, abdomen, and pelvis. Electronically Signed: Guanaco Barnhart MD at 21:36 EDT , Rhythm Strip Rhythm Strip: Sinus Rhythm Rate: 88 Ectopy: None Treatment and Re-Evaluation :: Patient was reassessed at 2210. She feels markedly better. She was discharged prescription for Zofran, Bentyl and liquid potassium. She was instructed to discontinue the tablets. She received a dose of p.o. potassium in the emergency department prior to discharge. Discharge Plan Triage Chief Complaint: Abd Pain ED Provider: Connor Thomas Dx/Rx/DC Orders Clinical Impression: History of Crohn's disease, Diarrhea, Acute generalized abdominal pain, Acute hypokalemia Instructions: ED Abdominal Pain Unkn Cause Fem, ED Hypokalemia Prescriptions: New potassium chloride 40 mEq/15 mL liquid 20 meq PO DAILY Qty: 473 0RF ondansetron [ondansetron] 4 mg tablet,disintegrating 4 mg PO Q8H PRN PRN (Reason: Nausea) Qty: 10 0RF dicyclomine 10 mg capsule 20 mg PO TIDAC Qty: 20 0RF potassium chloride 20 mEq packet 20 meq PO BID Qty: 30 0RF No Action levothyroxine 100 MCG tablet 100 mcg PO DAILY cyanocobalamin (vitamin B-12) 1,000 MCG tablet, sublingual 500 mcg PO DAILY multivitamin with folic acid [Thera] 1 TABLET tablet 1 tab PO DAILY isosorbide mononitrate 30 mg tablet extended release 24 hr 30 mg PO DAILY Patient Comments: TAKE 1 TABLET BY MOUTH ONCE DAILY zinc acetate 50 mg (zinc) Capsule 50 mg PO DAILY potassium chloride 20 mEq tablet,ER particles/crystals 20 meq PO DAILY Patient Comments: TAKE 1 TABLET BY MOUTH ONCE DAILY ferrous sulfate 324 mg (65 mg iron) Tablet,Delayed Release (Dr/Ec) 324 mg PO MOTH prednisone 50 mg tablet 50 mg PO DAILY 5 Days Qty: 5 0RF sulfamethoxazole-trimethoprim [Bactrim DS] 800-160 mg tablet 1 tab PO BID 7 Days Qty: 14 0RF Primary Care Provider: Gabe Robison Referrals: Gabe Robison MD [Primary Care Provider] - 5-7 Days Activity Restrictions/Additional Instructions: 1. Discontinue the potassium tablets 2. Blood draw to assess potassium and 5 days 3. Take medication as prescribed 4. If you have vomiting and unable to eat or drink anything or profuse diarrhea return to the emergency department Disposition Disposition: Home, Self Care
[2023-03-08] MEDS: Potassium Chloride Oral Soln 20 MEQ/15 ML UDC 40 MEQ PO (22:26)
== END 2023-03-08 22:33 | disposition home or self-care (01) ==
PROVIDERS: Emergency Provider Emergency Medicine; PCP Family Medicine; Referring Provider Family Medicine; Visit Provider Emergency Medicine
DX: R10.84 Generalized abdominal pain (principal); K50.90 Crohn's disease, unspecified, without complications; I10 Essential (primary) hypertension; R19.7 Diarrhea, unspecified; I25.10 Atherosclerotic heart disease of native coronary artery without angina pectoris; E78.5 Hyperlipidemia, unspecified; Z79.899 Other long term (current) drug therapy; Z90.49 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other specified parts of digestive tract; Z90.710 Acquired absence of both cervix and uterus; E89.0 Postprocedural hypothyroidism; F17.210 Nicotine dependence, cigarettes, uncomplicated; E87.6 Hypokalemia
CPT/HCPCS: 74022; 80048; 85025; 96372; 96374; 96375; 99284; J2405